=== PATIENT | female | born 1955 | race Caucasian/White ===

== ENCOUNTER 2019-10-27 11:54 | Inpatient (IN) | payer MEDICARE ==
[2019-10-27] MEDS ORDERED: MORPHINE SULFATE 4 MG/ML SYRINGE IVP STA (12:23)
--- NOTE | 2019-10-27 12:31 | ED ---
Fall HPI - General Source: EMS, RN notes reviewed, old records reviewed Mode of arrival: EMS <Ena Ortiz - Last Filed: 10/27/19 13:58> <Max Gutierrez - Last Filed: 10/27/19 14:04> - General Chief Complaint: Fall Stated Complaint: Fall Time Seen by Provider: 10/27/19 11:56 - History of Present Illness Initial Comments: Patient is a 64-year-old female presents emergency department today for evaluation for right hip pain after falling from her recliner chair on Thursday. Patient reports that she has history of a weak hips. She states that she stop with her left leg and he gave out and her falling on her right hip. She reports she was unable to bear weight since Thursday. She reports that her carried her up the stairs and laid her in her bed. Since Thursday she has not eaten anything but only drank she was able to urinate in a female urinal. Patient reports that she has not been able to move the hip without significant pain. They eventually called EMS and brought the Patient here. She is given 50 mg of fentanyl for pain relief. She reports that her hip is rotated at this time and is most comfortable position when rotated. Patient is a smoker. She denies any previous hip fractures. (Ean Ortiz) - Related Data Allergies Allergy/AdvReac Type Severity Reaction Status Date / Time Penicillins Allergy Rash/Hives Verified 10/27/19 12:35 Review of Systems ROS Other: All systems not noted in ROS Statement are negative. <Ena Ortiz - Last Filed: 10/27/19 13:58> ROS Other: All systems not noted in ROS Statement are negative. <Max Gutierrez - Last Filed: 10/27/19 14:04> ROS Statement: Those systems with pertinent positive or pertinent negative responses have been documented in the HPI. Past Medical History Past Medical History: Hypertension History of Any Multi-Drug Resistant Organisms: None Reported Past Surgical History: Hysterectomy Past Psychological History: Anxiety Smoking Status: Current every day smoker Past Alcohol Use History: Occasional Past Drug Use History: Marijuana <Ena Ortiz - Last Filed: 10/27/19 13:58> General Exam Limitations: no limitations General appearance: alert, in no apparent distress Head exam: Present: atraumatic, normocephalic, normal inspection Eye exam: Present: normal appearance, PERRL, EOMI. Absent: scleral icterus, conjunctival injection, periorbital swelling ENT exam: Present: normal exam, mucous membranes moist Neck exam: Present: normal inspection. Absent: tenderness, meningismus, lymphadenopathy Respiratory exam: Present: normal lung sounds bilaterally. Absent: respiratory distress, wheezes, rales, rhonchi, stridor Cardiovascular Exam: Present: regular rate, normal rhythm, normal heart sounds. Absent: systolic murmur, diastolic murmur, rubs, gallop, clicks GI/Abdominal exam: Present: soft, normal bowel sounds. Absent: distended, tenderness, guarding, rebound, rigid Extremities exam: Present: normal inspection, full ROM, normal capillary refill. Absent: tenderness, pedal edema, joint swelling, calf tenderness Right Hip exam: Present: normal inspection, tenderness, external rotation. Absent: full ROM, swelling, abrasion, laceration, ecchymosis, deformity, crepitus, dislocation Upper Leg exam: Present: normal inspection, full ROM Knee exam: Present: normal inspection, full ROM Lower Leg exam: Present: normal inspection Neurovascular tendon exam: Present: no vascular compromise Back exam: Present: normal inspection Neurological exam: Present: alert, oriented X3, CN II-XII intact Psychiatric exam: Present: normal affect, normal mood Skin exam: Present: warm, dry, intact, normal color. Absent: rash <Ena Ortiz - Last Filed: 10/27/19 13:58> - General Exam Comments Initial Comments: This is an alert and oriented 64-year-old female. No acute distress. (Ena Ortiz) Course Vital Signs 10/27/19 11:58 Temperature 98.5 F Pulse Rate 80 Respiratory 18 Rate Blood Pressure 176/105 O2 Sat by Pulse 94 L Oximetry Medical Decision Making - Lab Data Result diagrams: 10/27/19 12:49 10/27/19 12:49 - Radiology Data Radiology results: report reviewed <Ena Ortiz - Last Filed: 10/27/19 13:58> - Lab Data Result diagrams: 10/27/19 12:49 10/27/19 12:49 <Max Gutierrez - Last Filed: 10/27/19 14:04> - Medical Decision Making 64-year-old female presented to return today with right hip pain after a fall last Thursday from her recliner chair onto the right hip. Since that time she's been remaining in bed and her 's and feeding her fluids. She's been nonweightbearing. They decided to call EMS today for further evaluation. Sandra napier arrives with right leg externally rotated. No significant shortening noted. She has significant pain with palpation over the groin and hip. Patient was given IV pain medication x-rays completed and shows evidence of intertrochanteric fracture. Patient's case was discussed with Dr. Gutierrez. Discussed the case with Dr. Dewitt. Patient should be admitted this time with medical consult. She is a smoker. No other significant past medical history. (Ena Ortiz) Patient also evaluated by myself, Dr. Gutierrez. Patient resting comfortably in bed. Patient does have tenderness on exam of right hip. I do agree with PA findings. This includes diagnostic interpretation and treatment plan. Patient was reevaluated and reexamined. Distally the extremity is neurovascular intact. X-rays reviewed. Patient updated. Case was discussed in detail with GEOFF Anderson, who will admit coming for Dr. Toledo. (Max Gutierrez) - Lab Data Lab Results 10/27/19 10/27/19 10/27/19 Range/Units 12:49 12:49 12:49 WBC 8.7 (3.8-10.6) k/uL RBC 3.71 L (3.80-5.40) m/uL Hgb 14.9 (11.4-16.0) gm/dL Hct 43.4 (34.0-46.0) % MCV 116.9 H (80.0-100.0) fL MCH 40.2 H (25.0-35.0) pg MCHC 34.4 (31.0-37.0) g/dL RDW 14.5 (11.5-15.5) % Plt Count 197 (150-450) k/uL Neutrophils % (Manual) 74 % Band Neutrophils % 1 % Lymphocytes % (Manual) 17 % Monocytes % (Manual) 6 % Eosinophils % (Manual) 3 % Neutrophils # (Manual) 6.50 (1.3-7.7) k/uL Lymphocytes # (Manual) 1.48 (1.0-4.8) k/uL Monocytes # (Manual) 0.52 (0-1.0) k/uL Eosinophils # (Manual) 0.26 (0-0.7) k/uL Nucleated RBCs 0 (0-0) /100 WBC Manual Slide Review Performed Macrocytosis Marked A PT 10.8 (9.0-12.0) sec INR 1.0 (<1.2) APTT 22.7 (22.0-30.0) sec Sodium 134 L (137-145) mmol/L Potassium 3.7 (3.5-5.1) mmol/L Chloride 99 (98-107) mmol/L Carbon Dioxide 29 (22-30) mmol/L Anion Gap 6 mmol/L BUN 15 (7-17) mg/dL Creatinine 0.39 L (0.52-1.04) mg/dL Est GFR (CKD-EPI)AfAm >90 (>60 ml/min/1.73 sqM) Est GFR (CKD-EPI)NonAf >90 (>60 ml/min/1.73 sqM) Glucose 101 H (74-99) mg/dL Calcium 9.1 (8.4-10.2) mg/dL Total Bilirubin 1.4 H (0.2-1.3) mg/dL AST 30 (14-36) U/L ALT 15 (4-34) U/L Alkaline Phosphatase 67 (38-126) U/L Total Protein 6.0 L (6.3-8.2) g/dL Albumin 3.4 L (3.5-5.0) g/dL 10/27/19 12:50 EKG shows sinus rhythm with premature ventricular sugar ventricular complex is with occasional PVCs. Ventricular hypertrophy. 75 bpm ventricular rate. Is 128 ms. Estrogen is 92 ms. QT QTc is 416/464 ms. (Ena Ortiz) - Radiology Data X-ray shows evidence of a nondisplaced intertrochanteric right proximal fifth femoral fracture. Bone mineralization is reduced. Underlying a arthritic changes are present within the hip. Chest x-ray shows no evidence of any acute process. (Ena Ortiz) Disposition Is patient prescribed a controlled substance at d/c from ED?: No Time of Disposition: 14:00 <Ena Ortiz - Last Filed: 10/27/19 13:58> <Max Gutierrez - Last Filed: 10/27/19 14:04> Clinical Impression: Intertrochanteric fracture of right hip Disposition: ADMITTED IP TO THIS HOSP Condition: Good Referrals: Nonstaff,Physician [REFERRING] - 1-2 days
[2019-10-27 13:02] LABS: HCT 43.4 % (34.0-46.0); HGB 14.9 gm/dL (11.4-16.0); MCH 40.2 pg (25.0-35.0); MCHC 34.4 g/dL (31.0-37.0); MCV 116.9 fL (80.0-100.0); Macrocytosis Marked; Mean Platelet Volume 7.5; Platelet Count 197 k/uL (150-450); RBC 3.71 m/uL (3.80-5.40); RDW 14.5 % (11.5-15.5); WBC 8.7 k/uL (3.8-10.6)
[2019-10-27 13:08] LABS: ALT 15 U/L (4-34); African American GFR (CKD) >90 (>60 ml/min/1.73 sqM); Albumin 3.4 g/dL (3.5-5.0); Anion Gap 6 mmol/L; Blood Urea Nitrogen 15 mg/dL (7-17); Calcium 9.1 mg/dL (8.4-10.2); Carbon Dioxide 29 mmol/L (22-30); Chloride 99 mmol/L (98-107); Glucose 101 mg/dL (74-99); Non-African American GFR(CKD) >90 (>60 ml/min/1.73 sqM); Sodium 134 mmol/L (137-145); Total Bilirubin 1.4 mg/dL (0.2-1.3)
[2019-10-27 13:16] LABS: Potassium 3.7 mmol/L (3.5-5.1)
[2019-10-27 13:17] LABS: AST 30 U/L (14-36); Alkaline Phosphatase 67 U/L (38-126); Partial Thromboplastin Time 22.7 sec (22.0-30.0); Prothrombin Time 10.8 sec (9.0-12.0)
[2019-10-27 13:29] LABS: Band Neutrophils % 1 %; Eosinophils # (M) 0.26 k/uL (0-0.7); Lymphocytes # (M) 1.48 k/uL (1.0-4.8); Monocytes # (M) 0.52 k/uL (0-1.0); Neutrophils % (M) 74 %; Nucleated Red Blood Cells 0 /100 WBC (0-0); Total Cells Counted 200
--- NOTE | 2019-10-27 13:45 | XR ---
EXAMINATION TYPE: XR chest 1V DATE OF EXAM: 10/27/2019 COMPARISON: NONE HISTORY: Smoker, hip fracture TECHNIQUE: Single frontal view of the chest is obtained. FINDINGS: There is no focal air space opacity, pleural effusion, or pneumothorax seen. The cardiac silhouette size is within normal limits. There is eventration of the right hemidiaphragm. Patient is rotated. The osseous structures are intact. IMPRESSION: No acute process.
--- NOTE | 2019-10-27 13:48 | XR ---
EXAMINATION TYPE: XR Hip RT and AP Pelvis DATE OF EXAM: 10/27/2019 COMPARISON: NONE HISTORY: Trauma and pain TECHNIQUE: A single AP view of the pelvis is obtained. Two views of the right hip are obtained. FINDINGS: There is a nondisplaced intertrochanteric right proximal femoral fracture. Bone mineraliza tion is reduced. Underlying osteoarthritic changes are present within the hips. impression: Right hip fracture as described
[2019-10-27] MEDS ORDERED: SODIUM CHLORIDE 0.9% 1,000 ML IV ONE (13:51)
[2019-10-27] MEDS ORDERED: MORPHINE SULFATE 4 MG/ML SYRINGE IV PRN (14:01)
[2019-10-27] MEDS ORDERED: LORazepam 2 MG/ML INJ IV PRN (14:01)
[2019-10-27] MEDS ORDERED: ACETAMINOPHEN TAB 325 MG TAB PO PRN (14:01)
[2019-10-27] MEDS ORDERED: IBUPROFEN 400 MG TAB PO PRN (14:01)
[2019-10-27] MEDS ORDERED: NALOXONE 0.4 MG/ML 1 ML VIAL IV PRN (14:01)
[2019-10-27] MEDS ORDERED: ONDANSETRON 4 MG/2 ML VIAL IVP PRN (14:01)
[2019-10-27] MEDS ORDERED: KETOROLAC 30 MG/ML 1 ML VIAL IVP PRN (14:01)
[2019-10-27 14:29] LABS: Amorphous Sediment,Urine Rare /hpf; Appearance,Urine Turbid (Clear); Bilirubin,Urine 1+ (Negative); Blood,Urine Trace (Negative); Color,Urine Dark Brown; Glucose,Urine (UA) Negative (Negative); Ketones,Urine 2+ (Negative); Leukocyte Esterase,Urine Trace (Negative); Mucus,Urine Many /hpf; Nitrite,Urine Negative (Negative); PH, Urine 5.5 (5.0-8.0); Protein,Urine Trace (Negative); RBC,Urine 2 /hpf (0-5); Specific Gravity,Urine 1.026 (1.001-1.035); Squamous Epithelial Cell,Urine 6 /hpf (0-4); WBC,Urine 7 /hpf (0-5)
--- NOTE | 2019-10-27 15:22 | P.HPOR ---
History of Present Illness H&P Date: 10/27/19 Chief Complaint: Right hip fracture The patient is a 64-year-old female with a past medical history of hypertension, who presented to the emergency department today after sustaining a fall at home on 10/21/2019. She states she was standing up from her recliner chair with most of her weight on her left side but lost her balance and fell onto the right. She denies hitting her head or other injuries at this time. She states she has a history of bilateral hip arthritis but has not seen an orthopedic doctor yet. She does have weakness in her legs due to this hip arthritis. Her helped her into bed where she has remained since last Thursday. The pain was progressing and decided to come to the emergency department. X-rays were taken in the ER that revealed a nondisplaced right hip intertrochanteric fracture. Patient was admitted to orthopedics for surgical intervention. Internal medicine has been consulted. The patient's pain at this time is con trolled as long as she is laying in bed. Review of Systems Constitutional: Denies chills, Denies fatigue, Denies fever Cardiovascular: Denies chest pain, Denies shortness of breath Respiratory: Denies cough Gastrointestinal: Denies diarrhea, Denies nausea, Denies vomiting Musculoskeletal: right: hip pain, hip stiffness Past Medical History Past Medical History: Hypertension History of Any Multi-Drug Resistant Organisms: None Reported Past Surgical History: Hysterectomy Past Psychological History: Anxiety Smoking Status: Current every day smoker Past Alcohol Use History: Occasional Past Drug Use History: Marijuana Medications and Allergies Home Medications Medication Instructions Recorded Confirmed Type Acetaminophen [Tylenol 8 Hour] 1,300 mg PO DAILY PRN 10/27/19 10/27/19 History Allergies Allergy/AdvReac Type Severity Reaction Status Date / Time Penicillins Allergy Rash/Hives Verified 10/27/19 14:46 Physical Examination The patient is a 64 year old female that is no acute distress. She is alert and oriented x3. The patient's head is normocephalic and atraumatic. Exam of the cervical spine reveals no pain upon palpation or range of motion. Exam of the bilateral upper extremities reveal no obvious deformities or pain upon range of motion. Exam of the left lower extremity reveals no pain upon palpation. Exam of the right lower extremity reveals a externally rotated and shortened leg. Pain upon palpation to the lateral hip. There is pain upon logrolling and any range of motion of the leg. Bilateral calves are soft and nontender. Patient has good foot and ankle motion bilaterally. Neurological and circulatory status is intact. Results - Labs Labs: Abnormal Lab Results - Last 24 Hours (Table) 10/27/19 10/27/19 10/27/19 Range/Units 12:49 12:49 12:49 RBC 3.71 L (3.80-5.40) m/uL MCV 116.9 H (80.0-100.0) fL MCH 40.2 H (25.0-35.0) pg Macrocytosis Marked A Sodium 134 L (137-145) mmol/L Creatinine 0.39 L (0.52-1.04) mg/dL Glucose 101 H (74-99) mg/dL Total Bilirubin 1.4 H (0.2-1.3) mg/dL Creatine Kinase 28 L (30-135) U/L Total Protein 6.0 L (6.3-8.2) g/dL Albumin 3.4 L (3.5-5.0) g/dL Urine Appearance (Clear) Urine Protein (Negative) Urine Ketones (Negative) Urine Blood (Negative) Urine Bilirubin (Negative) Ur Leukocyte Esterase (Negative) Urine WBC (0-5) /hpf Ur Squamous Epith Cells (0-4) /hpf Amorphous Sediment (None) /hpf Urine Mucus (None) /hpf 10/27/19 Range/Units 13:56 RBC (3.80-5.40) m/uL MCV (80.0-100.0) fL MCH (25.0-35.0) pg Macrocytosis Sodium (137-145) mmol/L Creatinine (0.52-1.04) mg/dL Glucose (74-99) mg/dL Total Bilirubin (0.2-1.3) mg/dL Creatine Kinase (30-135) U/L Total Protein (6.3-8.2) g/dL Albumin (3.5-5.0) g/dL Urine Appearance Turbid H (Clear) Urine Protein Trace H (Negative) Urine Ketones 2+ H (Negative) Urine Blood Trace H (Negative) Urine Bilirubin 1+ H (Negative) Ur Leukocyte Esterase Trace H (Negative) Urine WBC 7 H (0-5) /hpf Ur Squamous Epith Cells 6 H (0-4) /hpf Amorphous Sediment Rare H (None) /hpf Urine Mucus Many H (None) /hpf H & H 10/27/19 Range/Units 12:49 Hgb 14.9 (11.4-16.0) gm/dL Hct 43.4 (34.0-46.0) % Coagulation 10/27/19 Range/Units 12:49 INR 1.0 (<1.2) Result Diagrams: 10/27/19 12:49 10/27/19 12:49 - Diagnostic results Hip x-ray: image reviewed (X-rays of the right hip and pelvis reveal a nondisplaced intertrochanteric fracture. Osteoarthritis present in both hips. ) Assessment and Plan (1) Hypertension Current Visit: Yes Status: Acute Code(s): I10 - ESSENTIAL (PRIMARY) HYPERTENSION SNOMED Code(s): 59634376 (2) Intertrochanteric fracture of right hip Current Visit: Yes Status: Acute Code(s): S72.141A - DISPLACED INTERTROCHANTERIC FRACTURE OF RIGHT FEMUR, INIT SNOMED Code(s): 228828522 Plan: The clinical and x-ray findings were discussed with the patient. The case was discussed with Dr. Adorno. Continue pain control. Continue bedrest. The july ent will be scheduled for an IT nail tomorrow afternoon. She may resume a regular diet at this time and will be NPO at midnight tonight. Internal medicine has been consulted for medical management and surgical clearance. Surgical risks were discussed at length with the patient. Possible risks and complications including but not limited to risk of bleeding, infection, dislocation, DVT, stroke, heart attack, and were discussed. All of the patient's questions were answered at this time to the best of my ability. We will continue to follow patient closely and make further recommendations as needed.
--- NOTE | 2019-10-27 16:08 | P.CONS ---
History of Present Illness - Reason for Consult Preoperative clearance - History of Present Illness Pleasant 62-year-old female came in after a fall which is without any syncope on the 10/21/2019. Patient is found to have a right hip fracture. Patient is sitting in bilateral hip arthritis. Blood pressure is a very high and patient does have EKG changes consistent with a chronic untreated hypertension including diffuse ST depressions, left ventricle hypertrophy and strain pattern. Patient is denied any history of coronary disease but does have history of sick smoking significant but cut down on smoking lately smokes only about 2-3 cigarettes per day. Denied any history of coronary artery disease or previous stents denied any history of congestive heart failure denied any shortness of breath orthopnea paroxysmal nocturnal dyspnea. Patient had occasional palpitations. Patient functionality is fairly good Review of Systems REVIEW OF SYSTEMS: CONSTITUTIONAL: No fever, no malaise, no fatigue. HEENT: No recent visual problems or hearing problems. Denied any sore throat. CARDIOVASCULAR: No chest pain, orthopnea, PND, no palpitations, no syncope. PULMONARY: No shortness of breath, no cough, no hemoptysis. GASTROINTESTINAL: No diarrhea, no nausea, no vomiting, no abdominal pain. NEUROLOGICAL: No headaches, no weakness, no numbness. HEMATOLOGICAL: Denies any bleeding or petechiae. GENITOURINARY: Denies any burning micturition, frequency, or urgency. MUSCULOSKELETAL/RHEUMATOLOGICAL: Right hip pain ENDOCRINE: Denies any polyuria or polydipsia. The rest of the 14-point review of systems is negative. Past Medical History Past Medical History: Hypertension History of Any Multi-Drug Resistant Organisms: None Reported Past Surgical History: Hysterectomy Past Psychological History: Anxiety Smoking Status: Current every day smoker Past Alcohol Use History: Occasional Past Drug Use History: Marijuana - Past Family History Father Family Medical History: Congestive Heart Failure (CHF), Dementia, Osteoarthritis (OA) Mother Additional Family Medical History / Comment(s): Breast CA, skin CA Medications and Allergies Home Medications Medication Instructions Recorded Confirmed Type Acetaminophen [Tylenol 8 Hour] 1,300 mg PO DAILY PRN 10/27/19 10/27/19 History Allergies Allergy/AdvReac Type Severity Reaction Status Date / Time Penicillins Allergy Rash/Hives Verified 10/27/19 14:46 Physical Exam Vitals: Vital Signs Temp Pulse Pulse Resp BP BP Pulse Ox 07/16/20 15:30 99.1 F 72 18 180/92 99 10/27/19 15:00 72 12 180/88 98 10/27/19 14:06 71 18 194/92 98 10/27/19 14:00 66 14 178/96 99 10/27/19 13:00 72 15 160/93 99 10/27/19 11:58 98.5 F 80 18 176/105 94 L Intake and Output 10/27/19 10/27/19 10/27/19 06:59 14:59 22:59 Other: Weight 54.431 kg 54.431 kg PHYSICAL EXAMINATION: GENERAL: The patient is alert and oriented x3, not in any acute distress. Well developed, well nourished. HEENT: Pupils are round and equally reacting to light. EOMI. No scleral icterus. No conjunctival pallor. Normocephalic, atraumatic. No pharyngeal erythema. No thyromegaly. CARDIOVASCULAR: S1 and S2 present. No murmurs, rubs, or gallops. PULMONARY: Chest is clear to auscultation, no wheezing or crackles. ABDOMEN: Soft, nontender, nondistended, normoactive bowel sounds. No palpable organomegaly. MUSCULOSKELETAL: Deferred to orthopedic surgery EXTREMITIES: No cyanosis, clubbing, or pedal edema. NEUROLOGICAL: Gross neurological examination did not reveal any focal deficits. SKIN: No rashes. Results CBC & Chem 7: 10/27/19 12:49 10/27/19 12:49 Labs: Abnormal Lab Results - Last 24 Hours (Table) 10/27/19 10/27/19 10/27/19 Range/Units 12:49 12:49 12:49 RBC 3.71 L (3.80-5.40) m/uL MCV 116.9 H (80.0-100.0) fL MCH 40.2 H (25.0-35.0) pg Macrocytosis Marked A Sodium 134 L (137-145) mmol/L Creatinine 0.39 L (0.52-1.04) mg/dL Glucose 101 H (74-99) mg/dL Total Bilirubin 1.4 H (0.2-1.3) mg/dL Creatine Kinase 28 L (30-135) U/L Total Protein 6.0 L (6.3-8.2) g/dL Albumin 3.4 L (3.5-5.0) g/dL Urine Appearance (Clear) Urine Protein (Negative) Urine Ketones (Negative) Urine Blood (Negative) Urine Bilirubin (Negative) Ur Leukocyte Esterase (Negative) Urine WBC (0-5) /hpf Ur Squamous Epith Cells (0-4) /hpf Amorphous Sediment (None) /hpf Urine Mucus (None) /hpf 10/27/19 Range/Units 13:56 RBC (3.80-5.40) m/uL MCV (80.0-100.0) fL MCH (25.0-35.0) pg Macrocytosis Sodium (137-145) mmol/L Creatinine (0.52-1.04) mg/dL Glucose (74-99) mg/dL Total Bilirubin (0.2-1.3) mg/dL Creatine Kinase (30-135) U/L Total Protein (6.3-8.2) g/dL Albumin (3.5-5.0) g/dL Urine Appearance Turbid H (Clear) Urine Protein Trace H (Negative) Urine Ketones 2+ H (Negative) Urine Blood Trace H (Negative) Urine Bilirubin 1+ H (Negative) Ur Leukocyte Esterase Trace H (Negative) Urine WBC 7 H (0-5) /hpf Ur Squamous Epith Cells 6 H (0-4) /hpf Amorphous Sediment Rare H (None) /hpf Urine Mucus Many H (None) /hpf Assessment and Plan Plan: -Preoperative clearance: Patient is low to intermediate risk, considering that EKG changes which is most certainly secondary to hypertensive heart disease will obtain an echocardiogram. Counseling that patient is hypotensive for longtime in spite of her blood pressure being high at 180 systolic. I do not recommend any antihypertensive medications before surgery or as that had blood pressure is expected to go down. Audiology was consulted for cardiac clearance for surgery -Possible hypovolemic hyponatremia -Possible essential hypertension uncontrolled elevated was never treated for elevated blood pressure. -History of marijuana use and nicotine abuse: Counseling was provided
[2019-10-27] MEDS: SODIUM CHLORIDE 0.9% 1,000 ML IV SCH (19:08)
--- NOTE | 2019-10-28 09:35 | ECHOF ---
Referral Reason:surgical clearence MEASUREMENTS -------- HEIGHT: 154.9 cm WEIGHT: 54.4 kg BP: 180/92 RVIDd: 2.9 cm (< 3.3) IVSd: 1.3 cm (0.6 - 1.1) LVIDd: 4.5 cm (3.9 - 5.3) LVPWd: 1.2 cm (0.6 - 1.1) IVSs: 1.6 cm LVIDs: 3.0 cm LVPWs: 1.7 cm LA Diam: 2.9 cm (2.7 - 3.8) LAESV Index (A-L): 31.58 ml/m Ao Diam: 3.3 cm (2.0 - 3.7) AV Cusp: 2.2 cm (1.5 - 2.6) MV EXCURSION: 10.738 mm (> 18.000) MV EF SLOPE: 32 mm/s (70 - 150) EPSS: 0.4 cm MV E Sujit: 0.72 m/s MV DecT: 289 ms MV A Sujit: 1.06 m/s MV E/A Ratio: 0.68 AV maxP.90 mmHg AV meanP.66 mmHg RAP: 5.00 mmHg RVSP: 39.79 mmHg FINDINGS -------- Sinus rhythm. This was a technically adequate study. The left ventricular size is normal. There is mild concentric left ventricular hypertrophy. Overa ll left ventricular systolic function is normal with, an EF between 55 - 60 %. The diastolic fillin g pattern is normal for the age of the patient 11.39. The right ventricle is normal in size. Normal LA size by volume 22+/-6 ml/m2. The right atrial size is normal. Interatrial and interventricular septum intact. The aortic valve is trileaflet, and appears structurally normal. No aortic stenosis or regurgitation. LVOT obstruction with max pressure gradient of 53 mmHg and mean 26 mmHg [id number] mitral regurgitation is present. Redundant MV Mild tricuspid regurgitation present. There is mild pulmonary hypertension. The right ventricular systolic pressure, as measured by Doppler, is 39.79mmHg. Trace/mild (physiologic) pulmonic regurgitation. The aortic root size is normal. Normal inferior vena cava with normal inspiratory collapse consistent with estimated right atrial pre ssure of 5 mmHg. Echo free space may represent effusion or a pericardial fat pad. CONCLUSIONS -------- 1. There is mild concentric left ventricular hypertrophy. 2. Overall left ventricular systolic function is normal with, an EF between 55 - 60 %. 3. Normal LA size by volume 22+/-6 ml/m2. 4. The aortic valve is trileaflet, and appears structurally normal. No aortic stenosis or regurgitati on. 5. LVOT obstruction with max pressure gradient of 53 mmHg and mean 26 mmHg 6. [id number] mitral regurgitation is present. 7. Redundant MV 8. Mild tricuspid regurgitation present. 9. There is mild pulmonary hypertension. 10. Trace/mild (physiologic) pulmonic regurgitation. 11. Echo free space may represent effusion or a pericardial fat pad. LENS GRINDING MACHINE OPERATOR: Brynn Blair RDCS
--- NOTE | 2019-10-28 09:37 | P.CRDCN ---
History of Present Illness History of present illness: HISTORY OF PRESENTING ILLNESS This is a pleasant 64-year-old female past medical history significant for hypertension, chronic nicotine dependence, daily alcohol and marijuana inta ke and noncompliance. 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 We have been asked to see in consultation for pre-operative evaluation. She states approximately one week ago while at home she lost her footing and fell. She was climbing up out of a lawnchair. She landed on her right hip. Her was able to carry her upstairs. This is where she remained for approximately one w [place] because he was unable to assist her downstairs. EMS was finally called and assisted her to the emergency department. Diagnostic imaging revealed a right hip fracture. She is scheduled to undergo a HANK nailing with Dr. Dozier this afternoon. She is seen and examined resting comfortably laying flat in bed in no acute distress. She denies having symptoms of chest pain, shortness of breath, dizziness or palpitations. She states she has been diagnosed with hypertension in the past and was advised "watch". She is not currently on any antihypertensive regimen. She does not regularly follow with a primary care physician. DIAGNOSTICS EKG reveals sinus mechanism with PVC's, LVH and non-specific ST changes. Chest xray negative for an acute cardiopulmonary process. Laboratory reviewed, WBC 8.7, hemoglobin 14.9, platelets 197, sodium 134, potassium 3.7, creatinine 0.39 with a GFR greater than 90.. She takes no daily cardiac medications. REVIEW OF SYSTEMS At the time of my exam: CONSTITUTIONAL: Denies fever or chills. CARDIOVASCULAR: Denies chest pain, shortness of breath, orthopnea, PND or palpitations. RESPIRATORY: Denies cough. GASTROINTESTINAL: Denies abdominal pain, diarrhea, constipation, nausea or vomiting. MUSCULOSKELETAL: Denies myalgias. NEUROLOGIC: Denies numbness, tingling or weakness. ENDOCRINE: Denies fatigue, weight change, polydipsia or polyurina. GENITOURINARY: Denies burning, hematuria or urgency with micturation. HEMATOLOGIC: Denies history of anemia or bleeding. PHYSICAL EXAMINATION Blood pressure 159/84 heart rate 69 afebrile and maintaining oxygen saturation on room air. CONSTITUTIONAL: No apparent distress. Appears older than stated age. HEENT: Head is normocephalic. Pupils are equal, round. Sclerae anicteric. Mucous membranes of the mouth are moist. No JVD. No carotid bruit. CHEST EXAMINATION: Diffuse expiratory wheezes, no rales or rhonchi. No chest wall tenderness is noted on palpation or with deep breathing. HEART EXAMINATION: Regular rate and rhythm. S1, S2 heard. No murmurs, gallops or rub. ABDOMEN: Soft, nontender. Positive bowel sounds. EXTREMITIES: 2+ peripheral pulses, no lower extremity edema and no calf tenderness. NEUROLOGIC EXAMINATION: Patient is awake, alert and oriented x3. ASSESSMENT Fall, no loss of consciousness or syncope Right hip fracture Hypertension, untreated Chronic nicotine dependence Daily alcohol intake Marijuana use PLAN Initiate lisinopril 5 mg daily for hypertension management. Echocardiogram has been ordered and will be reviewed. Check lipid panel. There are no acute contraindications to undergo surgical intervention. The patient has no symptoms of angina and is clinically euvolemic. Given her risk factor profile she has increased risks to undergo surgical intervention. Recommend optimal blood pressure control intraoperatively. Smoking, alcohol and tobacco cessation recommended. May require alcohol withdrawal protocol. Thank you kindly for this consultation. Nurse Practitioner note has been reviewed, I agree with a documented findings and plan of care. Patient was seen and examined. Past Medical History Past Medical History: Hypertension History of Any Multi-Drug Resistant Organisms: None Reported Past Surgical History: Hysterectomy Past Psychological History: Anxiety Smoking Status: Current every day smoker Past Alcohol Use History: Occasional Past Drug Use History: Marijuana - Past Family History Father Family Medical History: Congestive Heart Failure (CHF), Dementia, Osteoarthritis (OA) Mother Additional Family Medical History / Comment(s): Breast CA, skin CA Medications and Allergies Home Medications Medication Instructions Recorded Confirmed Type Acetaminophen [Tylenol 8 Hour] 1,300 mg PO DAILY PRN 10/27/19 10/27/19 History Allergies Allergy/AdvReac Type Severity Reaction Status Date / Time Penicillins Allergy Rash/Hives Verified 10/27/19 14:46 Physical Exam Vitals: Vital Signs Temp Pulse Pulse Resp BP BP Pulse Ox 10/28/19 08:00 69 16 10/28/19 07:00 98.3 F 69 16 159/84 93 L 10/28/19 01:00 98.5 F 79 18 157/93 94 L 10/27/19 18:50 98.6 F 75 18 188/78 95 07/16/20 16:00 72 18 10/27/19 15:30 99.1 F 72 18 180/92 99 10/27/19 15:00 72 12 180/88 98 10/27/19 14:06 71 18 194/92 98 10/27/19 14:00 66 14 178/96 99 10/27/19 13:00 72 15 160/93 99 10/27/19 11:58 98.5 F 80 18 176/105 94 L Intake and Output 10/27/19 10/28/19 10/28/19 22:59 06:59 14:59 Output Total 200 350 Balance -200 -350 Output: Urine 200 350 Other: Voiding Method Indwelling Catheter Indwelling Catheter Indwelling Catheter Weight 54.431 kg Results 10/27/19 12:49 10/27/19 12:49 Cardiac Enzymes 10/27/19 Range/Units 12:49 AST 30 (14-36) U/L Coagulation 10/27/19 Range/Units 12:49 PT 10.8 (9.0-12.0) sec APTT 22.7 (22.0-30.0) sec CBC 10/27/19 Range/Units 12:49 WBC 8.7 (3.8-10.6) k/uL RBC 3.71 L (3.80-5.40) m/uL Hgb 14.9 (11.4-16.0) gm/dL Hct 43.4 (34.0-46.0) % Plt Count 197 (150-450) k/uL Comprehensive Metabolic Panel 10/27/19 Range/Units 12:49 Sodium 134 L (137-145) mmol/L Potassium 3.7 (3.5-5.1) mmol/L Chloride 99 (98-107) mmol/L Carbon Dioxide 29 (22-30) mmol/L BUN 15 (7-17) mg/dL Creatinine 0.39 L (0.52-1.04) mg/dL Glucose 101 H (74-99) mg/dL Calcium 9.1 (8.4-10.2) mg/dL AST 30 (14-36) U/L ALT 15 (4-34) U/L Alkaline Phosphatase 67 (38-126) U/L Total Protein 6.0 L (6.3-8.2) g/dL Albumin 3.4 L (3.5-5.0) g/dL Current Medications Generic Name Dose Route Start Last Admin Trade Name Freq PRN Reason Stop Dose Admin Acetaminophen 650 mg 10/27/19 14:01 Tylenol Tab PO Q6HR PRN Mild Pain or Fever > 100.5 Sodium Chloride 1,000 mls @ 75 mls/hr 10/27/19 17:00 10/27/19 19:08 Saline 0.9% IV Not Given .[id number] ABBEY Ibuprofen 400 mg 10/27/19 14:01 Motrin PO Q6HR PRN Mild Pain or Fever > 100.5 Ketorolac Tromethamine 30 mg 10/27/19 14:01 Toradol IVP 11/01/19 14:02 Q6HR PRN Moderate Pain Lisinopril 5 mg 10/28/19 09:15 Zestril PO DAILY ABBEY Lorazepam 0.5 mg 10/27/19 14:01 10/27/19 20:59 Ativan IV 0.5 mg Q6HR PRN Administration Anxiety Morphine Sulfate 4 mg 10/27/19 14:01 10/27/19 14:10 Morphine Sulfate (Inj) IV 4 mg Q4HR PRN Administration Severe Pain Naloxone HCl 0.2 mg 10/27/19 14:01 Narcan IV Q2M PRN Opioid Reversal Ondansetron HCl 4 mg 10/27/19 14:01 Zofran IVP Q8HR PRN Nausea And Vomiting Intake and Output 10/27/19 10/28/19 10/28/19 22:59 06:59 14:59 Output Total 200 350 Balance -200 -350 Output: Urine 200 350 Other: Voiding Method Indwelling Catheter Indwelling Catheter Indwelling Catheter Weight 54.431 kg 10/27/19 12:49 10/27/19 12:49
[2019-10-28] MEDS: lisinopriL 5 MG TAB PO SCH (09:50)
[2019-10-28 10:36] LABS: Cholesterol 166 mg/dL (<200); HDL Cholesterol 33 mg/dL (40-60); LDL Cholesterol,Calculated 103 mg/dL (0-99); Triglycerides 152 mg/dL (<150)
[2019-10-28] MEDS ORDERED: IV FLUID CONTINUATION 1,000 ML IV ONE ×3 (12:20)
[2019-10-28] MEDS: IV FLUID CONTINUATION 1,000 ML IV ONE ×2 (12:20→19:12)
--- NOTE | 2019-10-28 13:22 | P.PN ---
Subjective 64-year-old admitted after mechanical fall had a right hip fracture will undergo hip arthroplasty today. Patient was a valid by cardiology. Patient is low to intermediate operative risk for arthroplasty same thing was discussed with the patient and patient is agreeable for the surgery. Patient echocardiogram did show left particular hypertrophy and left ventricle outflow obstruction. Constitutional: Denied any fatigue denied any fever. Cardio vascular: denied any chest pain, palpitations Gastrointestinal denied any nausea vomiting Pulmonary: Denied any shortness of breath cough Neurologic denied any new focal deficits All inpatient medications were reviewed and appropriate changes in these medications as dictated in the interval history and assessment and plan. Objective - Vital Signs Vital signs: Vital Signs Temp 97.7 F 10/28/19 12:33 Pulse 95 10/28/19 12:33 Resp 16 10/28/19 12:33 BP 160/87 10/28/19 12:33 Pulse Ox 98 10/28/19 12:33 Intake & Output 10/27/19 10/28/19 10/28/19 18:59 06:59 18:59 Output Total 550 Balance -550 Weight 54.431 kg Output: Urine 550 Other: Voiding Method Indwelling Catheter Indwelling Catheter Indwelling Catheter - Exam PHYSICAL EXAMINATION: GENERAL: The patient is alert and oriented x3, not in any acute distress. Well developed, well nourished. HEENT: Pupils are round and equally reacting to light. EOMI. No scleral icterus. No conjunctival pallor. Normocephalic, atraumatic. No pharyngeal erythema. No thyromegaly. CARDIOVASCULAR: S1 and S2 present. No murmurs, rubs, or gallops. PULMONARY: Chest is clear to auscultation, no wheezing or crackles. ABDOMEN: Soft, nontender, nondistended, normoactive bowel sounds. No palpable organomegaly. MUSCULOSKELETAL: Deferred to orthopedic surgery EXTREMITIES: No cyanosis, clubbing, or pedal edema. NEUROLOGICAL: Gross neurological examination did not reveal any focal deficits. SKIN: No rashes. - Labs CBC & Chem 7: 10/27/19 12:49 10/27/19 12:49 Labs: Abnormal Lab Results - Last 24 Hours (Table) 10/27/19 10/27/19 10/28/19 Range/Units 12:49 13:56 09:35 Creatine Kinase 28 L (30-135) U/L Triglycerides 152 H (<150) mg/dL LDL Cholesterol, Calc 103 H (0-99) mg/dL HDL Cholesterol 33 L (40-60) mg/dL Urine Appearance Turbid H (Clear) Urine Protein Trace H (Negative) Urine Ketones 2+ H (Negative) Urine Blood Trace H (Negative) Urine Bilirubin 1+ H (Negative) Ur Leukocyte Esterase Trace H (Negative) Urine WBC 7 H (0-5) /hpf Ur Squamous Epith Cells 6 H (0-4) /hpf Amorphous Sediment Rare H (None) /hpf Urine Mucus Many H (None) /hpf Assessment and Plan Plan: -Preoperative clearance: Patient is low to intermediate risk, echo cardio was reviewed and cardiology evaluated the patient patient was started on low-dose of ODILON inhibitor on hold that medication tomorrow morning and if blood pressure is higher post surgery patient will be started back on this medication -Possible hypovolemic hyponatremia continue with IV fluids -Alcohol abuse: Counseling was provided - essential hypertension uncontrolled elevated was never treated for elevated blood pressure. -History of marijuana use and nicotine abuse: Counseling was provided
[2019-10-28] MEDS ORDERED: PROPOFOL 10 MG/ML 20 ML VIAL IV ONE (13:44)
[2019-10-28] MEDS ORDERED: fentaNYL (PF) 50 MCG/ML 2 ML AMP ONE (13:44)
[2019-10-28] MEDS ORDERED: KETAMINE 10 MG/ML 20 ML VIAL ONE (13:44)
[2019-10-28] MEDS ORDERED: MIDAZOLAM 2 MG/2 ML VIAL ONE (13:44)
[2019-10-28] MEDS ORDERED: LACTATED RINGERS 1,000 ML IV ONE (14:33)
--- NOTE | 2019-10-28 14:58 | P.OP ---
Date of Procedure: 10/28/19 Procedure(s) Performed: PREOPERATIVE DIAGNOSIS: Right hip intertrochanteric fracture. POSTOPERATIVE DIAGNOSIS: Right hip intertrochanteric fracture. OPERATION: Right hip intertrochanteric fracture closed reduction and intramedullary nailing using Synthes IT nail. LIBRARY MEDIA SPECIALIST: Kayy Mack PA-C (Assistance with: Patient positioning, retraction, exposure, hemostasis, fixation, irrigation, closure, dressing) ANESTHESIA: Spinal ESTIMATED BLOOD LOSS: 50 mL. COMPLICATIONS: None OPERATIVE FINDINGS: See dictation INDICATIONS: Mrs. Alvarez is a 64-year-old female with a history of right intertrochanteric fracture. The patient presents to the operating room today for closed reduction and intramedullary nailing. I discussed the risks of surgery in detail as being inclusive of but not limited to: Bleeding, infection, scarring, discomfort, blood vessel and/or nerve damage, need for further minor rgery, malunion, nonunion, gait disturbance including persistent or permanent limp, limb length inequality, arthritis, hardware failure, blood clot, pulmonary embolism, , and other risks. The consent form has been signed. PROCEDURE: After appropriate consent was obtained, the patient was taken to the operating room and placed in supine position. Spinal anesthetic was administered and after confirmation of adequate anesthesia, the patient was carefully placed in the supine position on the operating room table in the fracture table. The patient was placed up against a well-padded peroneal post. Care was taken to make sure about that all pressure points were adequately padded. The affected leg was placed in boot traction and the unaffected leg was placed in a well leg capps. Using gentle longitudinal distraction as well as adduction and internal rotation, the fracture was reduced as assessed by AP and lateral C-arm imaging. Once a satisfactory reduction had been obtained, the thigh was prepped and draped in the usual aseptic fashion using ChloraPrep. Ioban drape was used for the case and the patient received intravenous antibiotics prior to incision. Timeout was called, confirming patient identity, side, procedure, and administration of antibiotics. The incision was then created with a #10 blade just proximal to the greater trochanter laterally. It was carried down through skin into the subcutaneous tissues and through fascia. Hemostasis was obtained using electrocautery. The tip of the greater trochanter was palpated and a guide pin was placed at the tip and directed into the femoral shaft as assessed with C-arm imaging. Once optimal pin position had been obtained, a 17 mm reamer was used over the guide pin to create a path for the IT nail. IT nail selected was assembled to the insertion jig on the back table and bushings were checked for accuracy. The nail was then inserted using gentle mallet taps until it was fully deployed. The amount of rotation of the implant was assessed based on the amount of anteversion of the femoral neck. This was rotated to match the patient's femoral neck anteversion and the helical blade guide was placed through the insertion jig and through an incision on the lateral side of the thigh more distal than the first. Once this guide was placed against the lateral cortex of the femur, a guide pin was drilled into the central region of the femoral head and neck as based on AP and lateral C-arm imaging. Once optimal pin position had been obtained, the guidewire was measured and appropriately sized helical blade was selected. The path for the helical blade was prepared using a tapered reamer. The helical blade was then inserted using gentle mallet taps along the guidewire until it was fully deployed. There was no displacement of the fracture during this step. The anti-rotation screw was locked down and the insertion apparatus for the helical blade was removed. The guide pin was then removed. Traction was then removed from the leg and the distal interlock was placed through the jig using standard technique. Finally, the insertion jig for the nail was removed and final C-arm images were taken and saved in both AP and lateral planes. The final x-rays showed satisfactory positioning of the implant and good reduction of the fracture. The top of the nail was plugged with a small quantity of bone wax and the incisions were then thoroughly irrigated with normal saline. Final hemostasis was obtained using electrocautery and closure of the fascia was performed using 0-Vicryl suture. 2-0 Vicryl suture was used in the subcutaneous tissues and standard skin closure was performed. Sterile dressing was then applied and the patient was carefully removed from the fracture table frame and placed onto the stretcher. The patient tolerated the procedure well. There were no complications and above noted blood loss. The patient was then subsequently transferred to recovery room in stable condition. Sponge and needle counts were correct.
--- NOTE | 2019-10-28 15:09 | FL ---
Fluoroscopy INDICATION: Pain FINDINGS: Fluoroscopy time: 49 seconds. Images obtained: 2. IMPRESSIONS: 1. Documentation of fluoroscopy.
[2019-10-28] MEDS ORDERED: MAGNESIUM HYDROXIDE 2,400 MG/10 ML CUP PO PRN (15:20)
[2019-10-28] MEDS ORDERED: HYDROmorphone 0.5 MG/0.5 ML SYRINGE IVP PRN ×2 (15:20)
[2019-10-28] MEDS ORDERED: NALOXONE 0.4 MG/ML 1 ML VIAL IV PRN (15:20)
[2019-10-28] MEDS ORDERED: HYDROcodone/APAP 5-325MG 1 EACH TAB PO PRN (15:20)
[2019-10-28] MEDS ORDERED: TEMAZEPAM 15 MG CAP PO PRN (15:20)
[2019-10-28] MEDS: HYDROmorphone 0.5 MG/0.5 ML SYRINGE IVP PRN ×3 (15:53→22:28)
[2019-10-28] MEDS ORDERED: HYDROmorphone 0.5 MG/0.5 ML SYRINGE IVP ONE (16:03)
[2019-10-28 17:40] LABS: Basophils % (A) 0 %; Eosinophils # (A) 0.1 k/uL (0-0.7); Eosinophils % (A) 2 %; HCT 39.6 % (34.0-46.0); HGB 13.3 gm/dL (11.4-16.0); Lymphocytes # (A) 1.2 k/uL (1.0-4.8); Lymphocytes % (A) 13 %; MCH 39.3 pg (25.0-35.0); MCHC 33.6 g/dL (31.0-37.0); MCV 117.1 fL (80.0-100.0); Macrocytosis Marked; Mean Platelet Volume 7.2; Monocytes # (A) 0.5 k/uL (0-1.0); Monocytes % (A) 6 %; Neutrophils # (A) 7.3 k/uL (1.3-7.7); Neutrophils % (A) 78 %; Platelet Count 203 k/uL (150-450); RBC 3.38 m/uL (3.80-5.40); WBC 9.4 k/uL (3.8-10.6)
[2019-10-28] MEDS: SODIUM CHLORIDE 0.9% 1,000 ML IV SCH ×2 (19:12→22:28)
[2019-10-28] MEDS: SENNOSIDES-DOCUSATE SODIUM 1 EACH TAB PO SCH (22:29)
[2019-10-28] MEDS: ASPIRIN 81 MG PO SCH (22:29)
[2019-10-29] MEDS: HYDROmorphone 0.5 MG/0.5 ML SYRINGE IVP PRN ×5 (02:34→20:32)
[2019-10-29] MEDS: lisinopriL 5 MG TAB PO SCH (07:48)
[2019-10-29] MEDS: ASPIRIN 81 MG PO SCH ×2 (07:54→20:32)
[2019-10-29] MEDS: SODIUM CHLORIDE 0.9% 1,000 ML IV SCH ×2 (08:57→23:09)
[2019-10-29 09:29] LABS: HCT 35.8 % (34.0-46.0); HGB 12.1 gm/dL (11.4-16.0); MCH 39.3 pg (25.0-35.0); MCHC 33.8 g/dL (31.0-37.0); MCV 116.2 fL (80.0-100.0); Macrocytosis Marked; Mean Platelet Volume 7.3; Platelet Count 174 k/uL (150-450); RBC 3.08 m/uL (3.80-5.40); WBC 9.7 k/uL (3.8-10.6)
[2019-10-29 09:38] LABS: African American GFR (CKD) >90 (>60 ml/min/1.73 sqM); Anion Gap 10 mmol/L; Blood Urea Nitrogen 7 mg/dL (7-17); Calcium 8.4 mg/dL (8.4-10.2); Carbon Dioxide 19 mmol/L (22-30); Chloride 102 mmol/L (98-107); Glucose 85 mg/dL (74-99); Non-African American GFR(CKD) >90 (>60 ml/min/1.73 sqM); Potassium 3.3 mmol/L (3.5-5.1); Sodium 131 mmol/L (137-145)
--- NOTE | 2019-10-29 09:49 | P.PN ---
Subjective Progress Note Date: 10/29/19 Principal diagnosis: Intertrochanteric right hip fracture. The patient is a 64-year-old female with a past medical history of hypertension, who presented to the emergency department on 10/27/2019 after sustaining a fall at home on 10/21/2019. She states she was standing up from her recliner chair with most of her weight on her left side but lost her balance and fell on to the right. She denies hitting her head or other injuries at this time. She states she has a history of bilateral hip arthritis but has not seen an orthopedic doctor yet. She does have weakness in her legs due to this hip arthritis. Her helped her into bed where she has remained since last Thursday. The pain was progressing and decided to come to the emergency department. X-rays were taken in the ER that revealed a nondisplaced right hip intertrochanteric fracture. Patient was admitted to orthopedics for surgical intervention. Internal medicine has been consulted. 10/29/2019: The patient is postoperative day #1 status post close reduction with insertion of intertrochanteric nail of the right hip. She has no new complaints or concerns today. Vital signs are stable. Objective - Vital Signs Vital signs: Vital Signs Temp 98.5 F 10/29/19 07:00 Pulse 80 10/29/19 07:00 Resp 16 10/29/19 07:00 BP 189/84 10/29/19 07:00 Pulse Ox 99 10/29/19 07:00 Intake & Output 10/28/19 10/29/19 10/29/19 18:59 06:59 18:59 Intake Total 1500 Output Total 450 850 Balance 1050 -850 Intake: IV 1500 Output: Urine 400 850 Estimated Blood Loss 50 Other: Voiding Method Indwelling Catheter Indwelling Catheter Indwelling Catheter # Voids 2 1 - Exam This is a pleasant 64-year-old female in no acute distress. She is alert and oriented at this time. Exam of the right lower extremity reveals that her dressing is clean, dry and intact. She has full foot and ankle motion without difficulty or pain. Neurovascular status to the lower extremity is intact. - Labs CBC & Chem 7: 10/29/19 08:53 10/29/19 08:53 Labs: Abnormal Lab Results - Last 24 Hours (Table) 10/28/19 10/28/19 10/29/19 Range/Units 09:35 17:14 08:53 RBC 3.38 L 3.08 L (3.80-5.40) m/uL MCV 117.1 H 116.2 H (80.0-100.0) fL MCH 39.3 H 39.3 H (25.0-35.0) pg Macrocytosis Marked A Marked A Sodium (137-145) mmol/L Potassium (3.5-5.1) mmol/L Carbon Dioxide (22-30) mmol/L Creatinine (0.52-1.04) mg/dL Triglycerides 152 H (<150) mg/dL LDL Cholesterol, Calc 103 H (0-99) mg/dL HDL Cholesterol 33 L (40-60) mg/dL 10/29/19 Range/Units 08:53 RBC (3.80-5.40) m/uL MCV (80.0-100.0) fL MCH (25.0-35.0) pg Macrocytosis Sodium 131 L (137-145) mmol/L Potassium 3.3 L (3.5-5.1) mmol/L Carbon Dioxide 19 L (22-30) mmol/L Creatinine 0.36 L (0.52-1.04) mg/dL Triglycerides (<150) mg/dL LDL Cholesterol, Calc (0-99) mg/dL HDL Cholesterol (40-60) mg/dL Assessment and Plan (1) Intertrochanteric fracture of right hip Current Visit: Yes Status: Acute Code(s): S72.141A - DISPLACED INTERTROCHANTERIC FRACTURE OF RIGHT FEMUR, INIT SNOMED Code(s): 255320346 Plan: The clinical findings are discussed with the patient. She is encouraged to get up with physical therapy today. She is toe-touch weightbearing to the right lower extremity. The plan is for discharge to home versus rehab on Thursday.
[2019-10-29] MEDS: PANTOPRAZOLE 40 MG/10 ML VIAL IVP SCH (11:16)
--- NOTE | 2019-10-29 14:37 | P.PN ---
Subjective Progress Note Date: 10/29/19 Principal diagnosis: Hypertension/Fall PROGRESS NOTE 10/29/2019 64-year-old female past medical history significant for hypertension, chronic nicotine dependence, daily alcohol and marijuana intake and noncompliance. S/P POD #1 for RIGHT total hip after fall. Pt does not follow with cardiology on a regular bases. patient is seen lying in bed with no current complaints of chest pain, chest pressure, shortness breath or palpitations. Patient right hip dressing clean dry and intact. Patient does have associated right hip pain after surgery. Patient states she smokes 2-3 cigarettes per day. And has not drank alcohol in approximately 2 weeks. Patient states she also has history of taking Xanax for known panic attacks. No acute distress currently. echocardiogram 10/27/2019 = EF 55-60%, LVOT obstruction with max pressure gradient of 53mmhg. mild to moderate MR. Mild pulmonary hypertension. PHYSICAL EXAMINATION: HEENT: Head is atraumatic, normocephalic. Pupils are equal, round. Sclerae anicteric. Conjunctivae are clear. Mucous membranes of the mouth are moist. Neck is supple. There is no jugular venous distention. No carotid bruit is heard. No thyromegaly. LUNGS: Clear to auscultation no wheezes, rales or rhonchi. No chest wall tendern ess is noted on palpation or with deep breathing. HEART: Regular rate and rhythm. II/ murmurs systolic ejection murmur noted. No rubs or gallops. S1 and S2 heard. ABDOMEN: Abdominal exam revealed normal bowel sounds. The abdomen was soft, non- tender, and without masses, organomegaly, or appreciable enlargement of the abdominal aorta. EXTREMITIES: Examination of the extremities revealed easily palpable radial, femoral and pedal pulses. There was no cyanosis, clubbing or edema. No calf tenderness noted. RIGHT bandaged hip repair, CDI. VASCULAR: Radial and dorsalis pedis pulses palpated, no evidence of clubbing. NEUROLOGIC: Patient is awake, alert and oriented x3. There were no obvious focal neurologic abnormalities. LAB DATA: FINAL IMPRESSION: 1. Sinus rhythm, with noted PVCs 2. LVOT obstruction on echocardiogram 3. Mild pulmonary hypertension. 5. RIGHT total hip s/p POD #1 PLAN: START metoprolol tartrate 25 mg twice daily. Patient to continue same all other medical/medication regime. Advise smoking cessation. Advise EtOH cessation. Cardiology to follow along. Objective - Vital Signs Vital signs: Vital Signs Temp 98.5 F 10/29/19 07:00 Pulse 80 10/29/19 07:00 Resp 16 10/29/19 07:00 BP 189/84 10/29/19 07:00 Pulse Ox 99 10/29/19 07:00 Intake & Output 10/28/19 10/29/19 10/29/19 18:59 06:59 18:59 Intake Total 1500 Output Total 450 850 Balance 1050 -850 Intake: IV 1500 Output: Urine 400 850 Estimated Blood Loss 50 Other: Voiding Method Indwelling Catheter Indwelling Catheter Indwelling Catheter # Voids 2 1 3 - Labs CBC & Chem 7: 10/29/19 08:53 10/29/19 08:53 Labs: Abnormal Lab Results - Last 24 Hours (Table) 10/28/19 10/29/19 10/29/19 Range/Units 17:14 08:53 08:53 RBC 3.38 L 3.08 L (3.80-5.40) m/uL MCV 117.1 H 116.2 H (80.0-100.0) fL MCH 39.3 H 39.3 H (25.0-35.0) pg Macrocytosis Marked A Marked A Sodium 131 L (137-145) mmol/L Potassium 3.3 L (3.5-5.1) mmol/L Carbon Dioxide 19 L (22-30) mmol/L Creatinine 0.36 L (0.52-1.04) mg/dL
--- NOTE | 2019-10-29 16:45 | P.PN ---
Subjective 64-year-old admitted after mechanical fall had a right hip fracture will undergo hip arthroplasty today. Patient was a valid by cardiology. Patient is low to intermediate operative risk for arthroplasty same thing was discussed with the patient and patient is agreeable for the surgery. Patient echocardiogram did show left particular hypertrophy and left ventricle outflow obstruction. 10/29/2019 Patient underwent right hip intertrochanteric fracture closed reduction with intramedullary nailing. 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 Patient was having frequent PVCs because of which patient was started on beta blane cardiology patient blood pressure is still high because of which will continue with the lisinopril. Constitutional: Denied any fatigue denied any fever. Cardio vascular: denied any chest pain, palpitations Gastrointestinal denied any nausea vomiting Pulmonary: Denied any shortness of breath cough Neurologic denied any new focal deficits All inpatient medications were reviewed and appropriate changes in these medications as dictated in the interval history and assessment and plan. Objective - Vital Signs Vital signs: Vital Signs Temp 99.2 F 10/29/19 15:31 Pulse 79 10/29/19 15:31 Resp 17 10/29/19 15:31 BP 186/88 10/29/19 15:31 Pulse Ox 99 10/29/19 15:31 Intake & Output 10/28/19 10/29/19 10/29/19 18:59 06:59 18:59 Intake Total 1500 Output Total 450 850 400 Balance 1050 -850 -400 Intake: IV 1500 Output: Urine 400 850 400 Estimated Blood Loss 50 Other: Voiding Method Indwelling Catheter Indwelling Catheter Indwelling Catheter # Voids 2 1 3 - Exam PHYSICAL EXAMINATION: GENERAL: The patient is alert and oriented x3, not in any acute distress. Well developed, well nourished. HEENT: Pupils are round and equally reacting to light. EOMI. No scleral icterus. No conjunctival pallor. Normocephalic, atraumatic. No pharyngeal erythema. No thyromegaly. CARDIOVASCULAR: S1 and S2 present. No murmurs, rubs, or gallops. PULMONARY: Chest is clear to auscultation, no wheezing or crackles. ABDOMEN: Soft, nontender, nondistended, normoactive bowel sounds. No palpable organomegaly. MUSCULOSKELETAL: Deferred to orthopedic surgery EXTREMITIES: No cyanosis, clubbing, or pedal edema. NEUROLOGICAL: Gross neurological examination did not reveal any focal deficits. SKIN: No rashes. - Labs CBC & Chem 7: 10/29/19 08:53 10/29/19 08:53 Labs: Abnormal Lab Results - Last 24 Hours (Table) 10/28/19 10/29/19 10/29/19 Range/Units 17:14 08:53 08:53 RBC 3.38 L 3.08 L (3.80-5.40) m/uL MCV 117.1 H 116.2 H (80.0-100.0) fL MCH 39.3 H 39.3 H (25.0-35.0) pg Macrocytosis Marked A Marked A Sodium 131 L (137-145) mmol/L Potassium 3.3 L (3.5-5.1) mmol/L Carbon Dioxide 19 L (22-30) mmol/L Creatinine 0.36 L (0.52-1.04) mg/dL Assessment and Plan Plan: -Right hip fracture: Patient is status post closed reduction and intramedullary nailing -Frequent PVCs for which patient was started on beta blockers -Hyponatremia possibly from 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 -Alcohol abuse: Counseling was provided - essential hypertension uncontrolled elevated patient is on lisinopril now on beta blane as well can you to monitor blood pressure -History of marijuana use and nicotine abuse: Counseling was provided
[2019-10-29] MEDS: SENNOSIDES-DOCUSATE SODIUM 1 EACH TAB PO SCH (20:32)
[2019-10-29] MEDS: METOPROLOL TARTRATE 25 MG TAB PO SCH (20:32)
[2019-10-30] MEDS: METOPROLOL TARTRATE 25 MG TAB PO SCH ×2 (07:44→20:12)
[2019-10-30] MEDS: PANTOPRAZOLE 40 MG/10 ML VIAL IVP SCH (07:44)
[2019-10-30] MEDS: ASPIRIN 81 MG PO SCH ×2 (07:44→20:12)
[2019-10-30] MEDS: lisinopriL 5 MG TAB PO SCH (07:44)
[2019-10-30] MEDS: HYDROmorphone 0.5 MG/0.5 ML SYRINGE IVP PRN ×2 (07:45→10:08)
[2019-10-30] MEDS ORDERED: lisinopriL 5 MG TAB PO STA (09:48)
[2019-10-30 10:56] LABS: African American GFR (CKD) >90 (>60 ml/min/1.73 sqM); Anion Gap 5 mmol/L; Blood Urea Nitrogen 6 mg/dL (7-17); Calcium 8.4 mg/dL (8.4-10.2); Carbon Dioxide 24 mmol/L (22-30); Chloride 102 mmol/L (98-107); Glucose 135 mg/dL (74-99); Non-African American GFR(CKD) >90 (>60 ml/min/1.73 sqM); Potassium 3.2 mmol/L (3.5-5.1); Sodium 131 mmol/L (137-145)
--- NOTE | 2019-10-30 10:59 | P.PN ---
Subjective Progress Note Date: 10/30/19 Principal diagnosis: Hypertension/Fall PROGRESS NOTE 10/30/2019 Patient seen lying in bed this a.m. in no acute distress. Pt has no current complaints of chest pain, chest pressure, shortness of breath or palpitations. Patient does complain of right hip pain with recent total right hip, states pain is uncontrolled at time with right hip. Patient heart rate well-controlled this a.m. Blood pressure remains elevated at 164/83. Will increase lisinopril to 10 mg once daily. Will add an additional 5 mg of lisinopril to this mornings 5 mg dose of lisinopril. Patient states overall she feels better as compared to yesterday except for right hip pain. Pt has not worked with PT as of yet this am. 64-year-old female past medical history significant for hypertension, chronic nicotine dependence, daily alcohol and marijuana intake and noncompliance. S/P POD #1 for RIGHT total hip after fall. Pt does not follow with cardiology on a regular bases. patient is seen lying in bed with no current complaints of chest pain, chest pressure, shortness breath or palpitations. Patient right hip dressing clean dry and intact. Patient does have associated right hip pain after surgery. Patient states she smokes 2-3 cigarettes per day. And has not drank alcohol in approximately 2 weeks. Patient states she also has history of taking Xanax for known panic attacks. No acute distress currently. PHYSICAL EXAMINATION: HEENT: Head is atraumatic, normocephalic. Pupils are equal, round. Sclerae anicteric. Conjunctivae are clear. Mucous membranes of the mouth are moist. Neck is supple. There is no jugular venous distention. No carotid bruit is heard. No thyromegaly. LUNGS: Clear to auscultation no wheezes, rales or rhonchi. No chest wall tenderness is noted on palpation or with deep breathing. HEART: Regular rate and rhythm without murmurs, rubs or gallops. S1 and S2 heard. ABDOMEN: Abdominal exam revealed normal bowel sounds. The abdomen was soft, non- tender, and without masses, organomegaly, or appreciable enlargement of the abdominal aorta. EXTREMITIES: Examination of the extremities revealed easily palpable radial, femoral and pedal pulses. There was no cyanosis, clubbing or edema. No calf tenderness noted. VASCULAR: Radial and dorsalis pedis pulses palpated, no evidence of clubbing. NEUROLOGIC: Patient is awake, alert and oriented x3. There were no obvious focal neurologic abnormalities. FINAL IMPRESSION: 1. Sinus Rhythm with PVC's 2. LVOT obstruction on echocardiogram 3. Mild pulmonary HTN 4. Right total hip POD #2 5. PLAN: Increase lisinopril to 10 mg once daily for elevated blood pressure. Patient to continue same all other medical/medication regime. Advise smoking cessation. Advise EtOH cessation. Advise better pain control. Cardiology to follow along on an as-needed basis. Objective - Vital Signs Vital signs: Vital Signs Temp 97.9 F 10/30/19 01:47 Pulse 67 10/30/19 01:47 Resp 17 10/30/19 01:47 BP 165/90 10/30/19 01:47 Pulse Ox 95 10/30/19 01:47 Intake & Output 10/29/19 10/30/19 10/30/19 18:59 06:59 18:59 Output Total 400 900 400 Balance -400 -900 -400 Output: Urine 400 900 400 Other: Voiding Method Indwelling Catheter Indwelling Catheter # Voids 3 3 - Labs CBC & Chem 7: 10/29/19 08:53 10/30/19 09:21
--- NOTE | 2019-10-30 11:42 | P.PN ---
Subjective Progress Note Date: 10/30/19 Principal diagnosis: Intertrochanteric right hip fracture. Status post close reduction with insertion of intertrochanteric nail right hip. The patient is a 64-year-old female with a past medical history of hypertension, who presented to the emergency department on 10/27/2019 after sustaining a fall at home on 10/21/2019. She states she was standing up from her recliner chair with most of her weight on her left side but lost her balance and fell onto the right. She denies hitting her head or other injuries at this time. She states she has a history of bilateral hip arthritis but has not seen an orthopedic doctor yet. She does have weakness in her legs due to this hip arthritis. Her helped her into bed where she has remained since last Thursday. The pain was progressing and decided to come to the emergency department. X-rays were taken in the ER that revealed a nondisplaced right hip intertrochanteric fracture. Patient was admitted to orthopedics for surgical intervention. Internal medicine has been consulted. 10/29/2019: The patient is postoperative day #1 status post close reduction with insertion of intertrochanteric nail of the right hip. She has no new complaints or concerns today. Vital signs are stable. 10/30/2019: Patient is postoperative day #2 status post close reduction with insertion of intertrochanteric nail right hip. She has not yet been bed. Physical therapy has not been and. She complains of pain to the leg. Vital signs are stable. Objective - Vital Signs Vital signs: Vital Signs Temp 97.9 F 10/30/19 01:47 Pulse 67 10/30/19 01:47 Resp 17 10/30/19 01:47 BP 165/90 10/30/19 01:47 Pulse Ox 95 10/30/19 01:47 Intake & Output 10/29/19 10/30/19 10/30/19 18:59 06:59 18:59 Output Total 400 900 400 Balance -400 -900 -400 Output: Urine 400 900 400 Other: Voiding Method Indwelling Catheter Indwelling Catheter # Voids 3 3 - Exam This is a pleasant 64-year-old female in no acute distress. She is alert and oriented at this time. Exam of the right lower extremity reveals that her dressing is clean, dry and intact. Dressing is removed. Incisions look good with no erythema or ecchymosis. Dermabond tape is intact. She has full foot and ankle motion without difficulty or pain. Neurovascular status to the lower extremity is intact. - Labs CBC & Chem 7: 10/29/19 08:53 10/30/19 09:21 Labs: Abnormal Lab Results - Last 24 Hours (Table) 10/30/19 Range/Units 09:21 Sodium 131 L (137-145) mmol/L Potassium 3.2 L (3.5-5.1) mmol/L BUN 6 L (7-17) mg/dL Creatinine 0.40 L (0.52-1.04) mg/dL Glucose 135 H (74-99) mg/dL Assessment and Plan (1) Intertrochanteric fracture of right hip Current Visit: Yes Status: Acute Code(s): S72.141A - DISPLACED INTERTROCHANTERIC FRACTURE OF RIGHT FEMUR, INIT SNOMED Code(s): 988983277 Plan: The clinical findings are discussed with the patient. She is encouraged to get up with physical therapy when they are able to evaluate her. She is toe-touch weightbearing to the right lower extremity. The plan is for discharge to home versus rehab on Thursday or Thursday.
--- NOTE | 2019-10-30 12:35 | P.PN ---
Subjective 64-year-old admitted after mechanical fall had a right hip fracture will undergo hip arthroplasty today. Patient was a valid by cardiology. Patient is low to intermediate operative risk for arthroplasty same thing was discussed with the patient and patient is agreeable for the surgery. Patient echocardiogram did show left particular hypertrophy and left ventricle outflow obstruction. 10/29/2019 Patient underwent right hip intertrochanteric fracture closed reduction with intramedullary nailing. 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 Patient was having frequent PVCs because of which patient was started on beta lbane cardiology patient blood pressure is still high because of which will continue with the lisinopril. 10/30/2019 Patient's serum sodium remains at 131. Patient is doing better her pain is better today. Patient's potassium is low which will be replaced patient blood pressures still elevated lisinopril dose is being increased Constitutional: Denied any fatigue denied any fever. Cardio vascular: denied any chest pain, palpitations Gastrointestinal denied any nausea vomiting Pulmonary: Denied any shortness of breath cough Neurologic denied any new focal deficits All inpatient medications were reviewed and appropriate changes in these medications as dictated in the interval history and assessment and plan. Objective - Vital Signs Vital signs: Vital Signs Temp 97.9 F 10/30/19 01:47 Pulse 67 10/30/19 01:47 Resp 17 10/30/19 01:47 BP 165/90 10/30/19 01:47 Pulse Ox 95 10/30/19 01:47 Intake & Output 10/29/19 10/30/19 10/30/19 18:59 06:59 18:59 Output Total 400 900 400 Balance -400 -900 -400 Output: Urine 400 900 400 Other: Voiding Method Indwelling Catheter Indwelling Catheter # Voids 3 3 - Exam PHYSICAL EXAMINATION: GENERAL: The patient is alert and oriented x3, not in any acute distress. Well developed, well nourished. HEENT: Pupils are round and equally reacting to light. EOMI. No scleral icterus. No conjunctival pallor. Normocephalic, atraumatic. No pharyngeal erythema. No thyromegaly. CARDIOVASCULAR: S1 and S2 present. No murmurs, rubs, or gallops. PULMONARY: Chest is clear to auscultation, no wheezing or crackles. ABDOMEN: Soft, nontender, nondistended, normoactive bowel sounds. No palpable organomegaly. MUSCULOSKELETAL: Deferred to orthopedic surgery EXTREMITIES: No cyanosis, clubbing, or pedal edema. NEUROLOGICAL: Gross neurological examination did not reveal any focal deficits. SKIN: No rashes. - Labs CBC & Chem 7: 10/29/19 08:53 10/30/19 09:21 Labs: Abnormal Lab Results - Last 24 Hours (Table) 10/30/19 Range/Units 09:21 Sodium 131 L (137-145) mmol/L Potassium 3.2 L (3.5-5.1) mmol/L BUN 6 L (7-17) mg/dL Creatinine 0.40 L (0.52-1.04) mg/dL Glucose 135 H (74-99) mg/dL Assessment and Plan Plan: -Right hip fracture: Patient is status post closed reduction and intramedullary nailing -Frequent PVCs for which patient was started on beta blockers -Hyponatremia possibly from 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 -Alcohol abuse: Counseling was provided - essential hypertension uncontrolled elevated patient is on lisinopril now on beta blane as well can you to monitor blood pressure -History of marijuana use and nicotine abuse: Counseling was provided
[2019-10-30] MEDS: SODIUM CHLORIDE 0.9% 1,000 ML IV SCH (12:55)
[2019-10-30 15:18] LABS: Basophils % (A) 0 %; Eosinophils # (A) 0.1 k/uL (0-0.7); Eosinophils % (A) 2 %; HCT 33.8 % (34.0-46.0); HGB 11.5 gm/dL (11.4-16.0); Lymphocytes # (A) 0.9 k/uL (1.0-4.8); Lymphocytes % (A) 11 %; MCH 39.4 pg (25.0-35.0); MCHC 34.1 g/dL (31.0-37.0); MCV 115.6 fL (80.0-100.0); Macrocytosis Marked; Mean Platelet Volume 7.4; Monocytes # (A) 0.7 k/uL (0-1.0); Monocytes % (A) 10 %; Neutrophils # (A) 5.7 k/uL (1.3-7.7); Neutrophils % (A) 75 %; Platelet Count 197 k/uL (150-450); RBC 2.92 m/uL (3.80-5.40); RDW 14.1 % (11.5-15.5); WBC 7.6 k/uL (3.8-10.6)
[2019-10-30] MEDS: HYDROcodone/APAP 5-325MG 1 EACH TAB PO PRN ×2 (16:05→22:08)
[2019-10-30] MEDS: SENNOSIDES-DOCUSATE SODIUM 1 EACH TAB PO SCH (20:13)
[2019-10-31] MEDS: SODIUM CHLORIDE 0.9% 1,000 ML IV SCH ×2 (00:33→15:03)
[2019-10-31] MEDS: ASPIRIN 81 MG PO SCH ×2 (07:36→20:22)
[2019-10-31] MEDS: METOPROLOL TARTRATE 25 MG TAB PO SCH ×2 (07:36→20:22)
[2019-10-31] MEDS: lisinopriL 10 MG TAB PO SCH (07:36)
[2019-10-31] MEDS: PANTOPRAZOLE 40 MG/10 ML VIAL IVP SCH (07:39)
--- NOTE | 2019-10-31 07:47 | P.PN ---
Subjective Progress Note Date: 10/31/19 Principal diagnosis: Intertrochanteric right hip fracture. Status post close reduction with insertion of intertrochanteric nail right hip. The patient is a 64-year-old female with a past medical history of hypertension, who presented to the emergency department on 10/27/2019 after sustaining a fall at home on 10/21/2019. She states she was standing up from her recliner chair with most of her weight on her left side but lost her balance and fell onto the right. She denies hitting her head or other injuries at this time. She states she has a history of bilateral hip arthritis but has not seen an orthopedic doctor yet. She does have weakness in her legs due to this hip arthritis. Her helped her into bed where she has remained since last Thursday. The pain was progressing and decided to come to the emergency department. X-rays were taken in the ER that revealed a nondisplaced right hip intertrochanteric fracture. Patient was admitted to orthopedics for surgical intervention. Internal medicine has been consulted. 10/29/2019: The patient is postoperative day #1 status post close reduction with insertion of intertrochanteric nail of the right hip. She has no new complaints or concerns today. Vital signs are stable. 10/30/2019: Patient is postoperative day #2 status post close reduction with insertion of intertrochanteric nail right hip. She has not yet been out of bed. Physical therapy has not been in. She complains of pain to the leg. Vital signs are stable. 10/31/2019: Patient is postoperative day #3 status post close reduction with insertion of intertrochanteric nail right hip. She has not yet been out of bed. Physical therapy has not been in. She complains of pain to the leg. Vital signs are stable. Objective - Vital Signs Vital signs: Vital Signs Temp 97.9 F 10/31/19 02:05 Pulse 57 L 10/31/19 02:05 Resp 18 10/31/19 02:05 BP 169/78 10/31/19 02:05 Pulse Ox 97 10/31/19 02:05 Intake & Output 10/30/19 10/31/19 10/31/19 18:59 06:59 18:59 Output Total 850 250 Balance -850 -250 Output: Urine 850 250 Other: Voiding Method Indwelling Catheter Indwelling Catheter # Voids 3 200 - Exam This is a pleasant 64-year-old female in no acute distress. She is alert and oriented at this time. Exam of the right lower extremity reveals that her dressing is clean, dry and intact. Dressing is removed. Incisions look good with no erythema or ecchymosis. Dermabond tape is intact. She has full foot and ankle motion without difficulty or pain. Neurovascular status to the lower extremity is intact. - Labs CBC & Chem 7: 10/30/19 14:57 10/30/19 09:21 Labs: Abnormal Lab Results - Last 24 Hours (Table) 10/30/19 10/30/19 Range/Units 09:21 14:57 RBC 2.92 L (3.80-5.40) m/uL Hct 33.8 L (34.0-46.0) % MCV 115.6 H (80.0-100.0) fL MCH 39.4 H (25.0-35.0) pg Lymphocytes # 0.9 L (1.0-4.8) k/uL Macrocytosis Marked A Sodium 131 L (137-145) mmol/L Potassium 3.2 L (3.5-5.1) mmol/L BUN 6 L (7-17) mg/dL Creatinine 0.40 L (0.52-1.04) mg/dL Glucose 135 H (74-99) mg/dL Assessment and Plan (1) Intertrochanteric fracture of right hip Current Visit: Yes Status: Acute Code(s): S72.141A - DISPLACED INTERTROCHANTERIC FRACTURE OF RIGHT FEMUR, INIT SNOMED Code(s): 082551846 Plan: The clinical findings are discussed with the patient. She is encouraged to get up with physical therapy when they are able to evaluate her. She is toe-touch weightbearing to the right lower extremity. The plan is for discharge to home versus rehab on Thursday.
[2019-10-31] MEDS: HYDROcodone/APAP 5-325MG 1 EACH TAB PO PRN ×3 (07:48→20:28)
[2019-10-31 10:35] LABS: African American GFR (CKD) >90 (>60 ml/min/1.73 sqM); Anion Gap 4 mmol/L; Blood Urea Nitrogen 7 mg/dL (7-17); Calcium 8.5 mg/dL (8.4-10.2); Carbon Dioxide 27 mmol/L (22-30); Chloride 102 mmol/L (98-107); Glucose 116 mg/dL (74-99); Non-African American GFR(CKD) >90 (>60 ml/min/1.73 sqM); Potassium 3.8 mmol/L (3.5-5.1); Sodium 133 mmol/L (137-145)
--- NOTE | 2019-10-31 14:35 | P.PN ---
Subjective Progress Note Date: 10/31/19 Principal diagnosis: 64-year-old admitted after mechanical fall had a right hip fracture will undergo hip arthroplasty today. Patient was a valid by cardiology. Patient is low to intermediate operative risk for arthroplasty same thing was discussed with the patient and patient is agreeable for the surgery. Patient echocardiogram did show left particular hypertrophy and left ventricle outflow obstruction. 10/29/2019 Patient underwent right hip intertrochanteric fracture closed reduction with intramedullary nailing. 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 Patient was having frequent PVCs because of which patient was started on beta blane cardiology patient blood pressure is still high because of which will continue with the lisinopril. 10/30/2019 Patient's serum sodium remains at 131. Patient is doing better her pain is bett er today. Patient's potassium is low which will be replaced patient blood pressures still elevated lisinopril dose is being increased Constitutional: Denied any fatigue denied any fever. Cardio vascular: denied any chest pain, palpitations Gastrointestinal denied any nausea vomiting Pulmonary: Denied any shortness of breath cough Neurologic denied any new focal deficits All inpatient medications were reviewed and appropriate changes in these medications as dictated in the interval history and assessment and plan. 10/31/2019 Patient is seen and evaluated in follow-up currently sitting up in the chair and appears to be in no acute distress. Patient states she has been up and working with physical therapy with a walker status post right hip arthroplasty. Will continue to follow along with orthopedic surgery closely. Sodium is improved today at 133, potassium is 3.8. Patient states she was nauseated and vomiting yesterday status post anesthesia but feels better today and is tolerating clear liquids and being advanced. Will continue to monitor blood pressure closely as lisinopril has been increased to 10 mg daily. Discussed with patient about discharge planning and primary care follow-up and patient states she does not have a doctor and will need resources upon discharge. Currently no reports of chest pain, shortness of breath, or palpitations. Patient is afebrile. No re ports of nausea or vomiting today and patient is tolerating diet. Objective - Vital Signs Vital signs: Vital Signs Temp 97.9 F 10/31/19 02:05 Pulse 57 L 10/31/19 08:00 Resp 18 10/31/19 08:00 BP 169/78 10/31/19 02:05 Pulse Ox 97 10/31/19 02:05 Intake & Output 10/30/19 10/31/19 10/31/19 18:59 06:59 18:59 Output Total 850 250 Balance -850 -250 Output: Urine 850 250 Other: Voiding Method Indwelling Catheter Indwelling Catheter Indwelling Catheter # Voids 3 200 - Exam GENERAL: The patient is alert and oriented x3, not in any acute distress. Well developed, well nourished. HEENT: Pupils are round and equally reacting to light. EOMI. No scleral icterus. No conjunctival pallor. Normocephalic, atraumatic. No pharyngeal erythema. No thyromegaly. CARDIOVASCULAR: S1 and S2 present. No murmurs, rubs, or gallops. PULMONARY: Chest is clear to auscultation, no wheezing or crackles. ABDOMEN: Soft, nontender, nondistended, normoactive bowel sounds. No palpable organomegaly. MUSCULOSKELETAL: Deferred to orthopedic surgery EXTREMITIES: No cyanosis, clubbing, or pedal edema. NEUROLOGICAL: Gross neurological examination did not reveal any focal deficits. SKIN: No rashes. - Labs CBC & Chem 7: 10/30/19 14:57 10/31/19 10:02 Labs: Abnormal Lab Results - Last 24 Hours (Table) 10/30/19 10/31/19 Range/Units 14:57 10:02 RBC 2.92 L (3.80-5.40) m/uL Hct 33.8 L (34.0-46.0) % MCV 115.6 H (80.0-100.0) fL MCH 39.4 H (25.0-35.0) pg Lymphocytes # 0.9 L (1.0-4.8) k/uL Macrocytosis Marked A Sodium 133 L (137-145) mmol/L Creatinine 0.33 L (0.52-1.04) mg/dL Glucose 116 H (74-99) mg/dL Assessment and Plan Assessment: -Right hip fracture: Patient is status post closed reduction and intramedullary nailing -Frequent PVCs for which patient was started on beta blockers -Hyponatremia possibly from SIADH from pain, Improving. Current sodium is 133 -Alcohol abuse: Counseling was provided -essential hypertension uncontrolled elevated patient is Continued on lisinopril as well as metoprolol and will continue to monitor vital signs closely -History of marijuana use and nicotine abuse: Counseling was provided Plan: We'll continue to monitor vital signs and labs closely and continue with lisinopril and metoprolol at this time. Continue with gentle IV hydration and will repeat a.m. labs. Will continue to follow along closely with orthopedic surgery. Case management and social work following patient will likely be going to a subacute rehab for continued PT/OT therapy once stabilized and discharged. Further recommendations to follow.
[2019-10-31] MEDS: SENNOSIDES-DOCUSATE SODIUM 1 EACH TAB PO SCH (20:23)
[2019-11-01] MEDS: HYDROcodone/APAP 5-325MG 1 EACH TAB PO PRN ×3 (02:11→13:20)
[2019-11-01] MEDS: SODIUM CHLORIDE 0.9% 1,000 ML IV SCH (04:19)
[2019-11-01] MEDS: METOPROLOL TARTRATE 25 MG TAB PO SCH (07:23)
[2019-11-01] MEDS: ASPIRIN 81 MG PO SCH (07:23)
[2019-11-01] MEDS: lisinopriL 10 MG TAB PO SCH (07:23)
[2019-11-01] MEDS: PANTOPRAZOLE 40 MG/10 ML VIAL IVP SCH (07:23)
[2019-11-01 07:53] LABS: Basophils % (A) 1 %; Eosinophils # (A) 0.1 k/uL (0-0.7); Eosinophils % (A) 2 %; HCT 35.3 % (34.0-46.0); Lymphocytes % (A) 16 %; MCH 39.9 pg (25.0-35.0); MCV 117.2 fL (80.0-100.0); Macrocytosis Marked; Mean Platelet Volume 7.4; Monocytes # (A) 0.5 k/uL (0-1.0); Monocytes % (A) 8 %; Neutrophils # (A) 4.6 k/uL (1.3-7.7); Neutrophils % (A) 72 %; Platelet Count 284 k/uL (150-450); RBC 3.01 m/uL (3.80-5.40); RDW 14.2 % (11.5-15.5); WBC 6.4 k/uL (3.8-10.6)
[2019-11-01 08:01] LABS: African American GFR (CKD) >90 (>60 ml/min/1.73 sqM); Anion Gap 5 mmol/L; Blood Urea Nitrogen 8 mg/dL (7-17); Calcium 8.5 mg/dL (8.4-10.2); Carbon Dioxide 30 mmol/L (22-30); Chloride 100 mmol/L (98-107); Glucose 100 mg/dL (74-99); Non-African American GFR(CKD) >90 (>60 ml/min/1.73 sqM); Potassium 3.1 mmol/L (3.5-5.1); Sodium 135 mmol/L (137-145)
[2019-11-01] MEDS ORDERED: POTASSIUM CHLORIDE ER 20 MEQ TAB.ER PO STA (08:53)
--- NOTE | 2019-11-01 09:17 | P.DS ---
Providers Date of admission: 10/27/19 14:01 Expected date of discharge: 11/01/19 Attending physician: Russ Adorno Consults: 10/27/19 14:01 Consult Physician Stat Consulting Provider: Yani Roque Consult Reason/Comments: medical mgmt, hip fracture Do you want consulting provider notified?: Yes 10/27/19 15:56 Consult Physician Routine Consulting Provider: [facility] Consult Reason/Comments: surgical clearence Do you want consulting provider notified?: Yes Primary care physician: Stated None - Discharge Diagnosis(es) (1) Intertrochanteric fracture of right hip Current Visit: Yes Status: Acute Hospital Course: The patient is a 64-year-old female with a past medical history of hypertension, who presented to the emergency department on 10/29/2019 after sustaining a fall at home on 10/21/2019. She states she was standing up from her recliner chair with most of her weight on her left side but lost her balance and fell onto the right. She denies hitting her head or other injuries at this time. She states she has a history of bilateral hip arthritis but has not seen an orthopedic doctor yet. She does have weakness in her legs due to this hip arthritis. Her helped her into bed where she has remained since last Thursday. The pain was progressing and decided to come to the emergency department. X-rays were taken in the ER that revealed a nondisplaced right hip intertrochanteric fracture. Patient was admitted to orthopedics for surgical intervention. Internal medicine has been consulted. The patient's pain at this time is controlled as long as she is laying in bed. The patient is admitted to our service for surgical intervention and care. Patient is taken to surgery on 10/30/2019 for close reduction and insertion of intertrochanteric nail of the right hip. The procedure was performed without complication or sequelae. The patient had difficulty with ambulation and activity. She was not seen by physical therapy thru the weekend. It was recommended that the patient go to inpatient rehab.. Vital signs and labs are stable on postoperative day #4. Patient is discharged to inpatient rehab in good condition. Please see med rec for accurate list of discharge medications. Patient Condition at Discharge: Good Plan - Discharge Summary Discharge Rx Participant: Yes New Discharge Prescriptions: New Aspirin [Adult Low Dose Aspirin EC] 81 mg PO BID #1 tablet. HYDROcodone/APAP 5-325MG [[place] 5-325] 1 - 2 each PO Q4-6H PRN #50 tab PRN Reason: Pain Sennosides-Docusate Sodium [Senokot-S] 1 tab PO BID #60 tablet No Action Acetaminophen [Tylenol 8 Hour] 1,300 mg PO DAILY PRN PRN Reason: Pain Discharge Medication List Acetaminophen [Tylenol 8 Hour] 1,300 mg PO DAILY PRN 10/27/19 [History] Aspirin [Adult Low Dose Aspirin EC] 81 mg PO BID #1 tablet. 11/01/19 [Rx] HYDROcodone/APAP 5-325MG [[place] 5-325] 1 - 2 each PO Q4-6H PRN #50 tab 11/01/19 [Rx] Sennosides-Docusate Sodium [Senokot-S] 1 tab PO BID #60 tablet 11/01/19 [Rx] Follow up Appointment(s)/Referral(s): Kayy Mack, PAC [PHYSICIAN PHOTOGRAPHIC PROCESS WORKER] - 3 Weeks [facility], [NON-STAFF] - 1 Week Nonstaff,Physician [REFERRING] - 1-2 days Activity/Diet/Wound Care/Special Instructions: Please go to [email or web address] to find local PCP. Toe touch wt bearing MARA peterson. May shower. Discharge Disposition: TRANSFER TO SNF/ECF
[2019-11-01 14:43] VITALS: RESP 18
[2019-11-01 15:19] VITALS: BP 153/92; PULSE 74; TEMP 98.5
--- NOTE | 2019-11-01 16:18 | P.PN ---
Subjective Progress Note Date: 11/01/19 Principal diagnosis: 64-year-old admitted after mechanical fall had a right hip fracture will undergo hip arthroplasty today. Patient was a valid by cardiology. Patient is low to intermediate operative risk for arthroplasty same thing was discussed with the patient and patient is agreeable for the surgery. Patient echocardiogram did show left particular hypertrophy and left ventricle outflow obstruction. 10/29/2019 Patient underwent right hip intertrochanteric fracture closed reduction with intramedullary nailing. 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 Patient was having frequent PVCs because of which patient was started on beta blane cardiology patient blood pressure is still high because of which will continue with the lisinopril. 10/30/2019 Patient's serum sodium remains at 131. Patient is doing better her pain is bett er today. Patient's potassium is low which will be replaced patient blood pressures still elevated lisinopril dose is being increased Constitutional: Denied any fatigue denied any fever. Cardio vascular: denied any chest pain, palpitations Gastrointestinal denied any nausea vomiting Pulmonary: Denied any shortness of breath cough Neurologic denied any new focal deficits All inpatient medications were reviewed and appropriate changes in these medications as dictated in the interval history and assessment and plan. 10/31/2019 Patient is seen and evaluated in follow-up currently sitting up in the chair and appears to be in no acute distress. Patient states she has been up and working with physical therapy with a walker status post right hip arthroplasty. Will continue to follow along with orthopedic surgery closely. Sodium is improved today at 133, potassium is 3.8. Patient states she was nauseated and vomiting yesterday status post anesthesia but feels better today and is tolerating clear liquids and being advanced. Will continue to monitor blood pressure closely as lisinopril has been increased to 10 mg daily. Discussed with patient about discharge planning and primary care follow-up and patient states she does not have a doctor and will need resources upon discharge. Currently no reports of chest pain, shortness of breath, or palpitations. Patient is afebrile. No re ports of nausea or vomiting today and patient is tolerating diet. 11/01/2019 Patient is seen in follow-up currently awaiting to go to rehab for physical therapy. Following closely with orthopedic surgery. Patient continues to be slightly hypertensive although has improved and will continue on lisinopril along with metoprolol. Discussed with the patient about establishing with a primary care provider in the outpatient setting. She denies any chest pain, shortness of breath, or palpitations. Patient is afebrile. No reports of nausea or vomiting and patient is tolerating diet. Surgical site of the right hip looks is dry and intact with no surrounding erythema or swelling noted. Objective - Vital Signs Vital signs: Vital Signs Temp 98.5 F 11/01/19 15:18 Pulse 74 11/01/19 15:18 Resp 18 11/01/19 15:18 BP 153/92 11/01/19 15:18 Pulse Ox 91 L 11/01/19 15:18 Intake & Output 10/31/19 11/01/19 11/01/19 18:59 06:59 18:59 Intake Total 500 500 Output Total 650 100 Balance 500 -650 400 Intake: Oral 500 500 Output: Urine 650 100 Other: Voiding Method Indwelling Catheter Indwelling Catheter Indwelling Catheter # Voids 2 - Exam GENERAL: The patient is alert and oriented x3, not in any acute distress. Well developed, well nourished. HEENT: Pupils are round and equally reacting to light. EOMI. No scleral icterus. No conjunctival pallor. Normocephalic, atraumatic. No pharyngeal erythema. No thyromegaly. CARDIOVASCULAR: S1 and S2 present. No murmurs, rubs, or gallops. PULMONARY: Chest is clear to auscultation, no wheezing or crackles. ABDOMEN: Soft, nontender, nondistended, normoactive bowel sounds. No palpable organomegaly. MUSCULOSKELETAL: Deferred to orthopedic surgery EXTREMITIES: No cyanosis, clubbing, or pedal edema. Right hip surgical site is dry and intact with glue noted and no surrounding erythema or swelling NEUROLOGICAL: Gross neurological examination did not reveal any focal deficits. SKIN: No rashes. - Labs CBC & Chem 7: 11/01/19 07:11/01/19 07:01 Labs: Abnormal Lab Results - Last 24 Hours (Table) 11/01/19 11/01/19 Range/Units 07: 07:01 RBC 3.01 L (3.80-5.40) m/uL MCV 117.2 H (80.0-100.0) fL MCH 39.9 H (25.0-35.0) pg Macrocytosis Marked A Sodium 135 L (137-145) mmol/L Potassium 3.1 L (3.5-5.1) mmol/L Creatinine 0.33 L (0.52-1.04) mg/dL Glucose 100 H (74-99) mg/dL Assessment and Plan Assessment: -Right hip fracture: Patient is status post closed reduction and intramedullary nailing -Frequent PVCs for which patient was started on beta blockers -Hypokalemia -Hyponatremia possibly from SIADH from pain, Improving. Current sodium is 133 -Alcohol abuse: Counseling was provided -essential hypertension uncontrolled elevated patient is Continued on lisinopril as well as metoprolol and will continue to monitor vital signs closely -History of marijuana use and nicotine abuse: Counseling was provided Plan: We'll continue to monitor vital signs and labs closely and continue with lisinopril and metoprolol at this time. Potassium was found to be 3.1 and replaced. Will continue to follow along closely with orthopedic surgery. Case management and social work following patient will likely be going to a subacute rehab for continued PT/OT therapy once stabilized and discharged. Further recommendations to follow. Patient will likely be discharged to rehab today
[2019-11-02] MEDS ORDERED: PANTOPRAZOLE 40 MG TABLET PO SCH (07:30)
--- NOTE | 2019-11-02 14:46 | CDI ---
Documentation Clarification Form Date: 11/02/19 From: Sruthi Farias Phone: If you have a question about this query, please contact Teressa Rodgers, Jewelry Jobber at [phone] between 8am and 5pm. Admit Date: 10/27/19 Discharge Date:11/01/19 Patient Name: Kaitlyn Alvarez Visit Number: [id number] ATTENTION: The Clinical Documentation Specialists (CDI) and [facility] Coding Staff appreciate your assistance in clarifying documentation. Please respond to the clarification below the line at the bottom and electronically sign. The CDI & [facility] Coding staff will review the response and follow-up if needed. Please note: Queries are made part of the Legal Health Record. If you have any questions, please contact the author of this message via ITS. Dear Dr. Roque The patient presented with the following: right hip fracture. Uncontrolled hypertension is documented in your consult note and progress notes. History/Risk Factors: Hypertension, anxiety, right hip fracture, mitral valve regurgitation, pulmonary hypertension Clinical Indicators: Elevated blood pressure Radiology findings: Chest x-ray - no acute process Vital Signs: T. 98.5, P. 80, R. 18, BP 176/105 Blood pressure: 10/26 - 176/105, 160/93, 178/96, 194/92, 180/88, 180/92, 188/78 EKG: changes consistent with a chronic untreated hypertension including diffuse ST depressions, left ventricle hypertrophy and strain pattern. Treatment: Lisinopril 10 mg once daily - new med: In your professional opinion, can you please clarify ? Emergency Urgency Crisis Other, please specify Unable to determine none of the above MTDD
== END 2019-11-01 16:06 | disposition home health service (06) | DRG 481 ==
LOC: EC 11:54 → 4SSUR 14:01
PROVIDERS: ADMIT Orthopaedic Surgery; ATTEND Orthopaedic Surgery
PROC: 0QS636Z Reposition Right Upper Femur with Intramedullary Internal Fixation Device, Percutaneous Approach (ICD-10-PCS; principal; 2019-10-28 07:30)
DX: S72.141A Displaced intertrochanteric fracture of right femur, initial encounter for closed fracture (principal); E22.2 Syndrome of inappropriate secretion of antidiuretic hormone; I27.20 Pulmonary hypertension, unspecified; I11.9 Hypertensive heart disease without heart failure; E87.6 Hypokalemia; F17.210 Nicotine dependence, cigarettes, uncomplicated; F41.0 Panic disorder [episodic paroxysmal anxiety]; I49.3 Ventricular premature depolarization; M16.0 Bilateral primary osteoarthritis of hip; I34.0 Nonrheumatic mitral (valve) insufficiency; Z11.59 Encounter for screening for other viral diseases; Z91.19 Patient's noncompliance with other medical treatment and regimen; Z90.710 Acquired absence of both cervix and uterus; Z88.0 Allergy status to penicillin; Z80.3 Family history of malignant neoplasm of breast; Z82.49 Family history of ischemic heart disease and other diseases of the circulatory system; Z80.8 Family history of malignant neoplasm of other organs or systems; Z82.61 Family history of arthritis; Z82.0 Family history of epilepsy and other diseases of the nervous system; Z71.6 Tobacco abuse counseling; Z71.41 Alcohol abuse counseling and surveillance of alcoholic; W01.0XXA Fall on same level from slipping, tripping and stumbling without subsequent striking against object, initial encounter; Y92.009 Unspecified place in unspecified non-institutional (private) residence as the place of occurrence of the external cause
CPT/HCPCS: 36415; 71045; 73502; 80048; 80053; 80061; 81001; 82550; 85025; 85027; 85610; 85730; 93005; 93306; 96361; 96374; 96376; 99285

== ENCOUNTER → 2020-12-24 | Outpatient (CLI) | payer MEDICARE ==
[2020-12-24 14:07] LABS: HCT 40.7 % (34.0-46.0); HGB 13.4 gm/dL (11.4-16.0); MCH 32.2 pg (25.0-35.0); MCHC 32.9 g/dL (31.0-37.0); Mean Platelet Volume 6.8; Platelet Count 249 k/uL (150-450); RBC 4.16 m/uL (3.80-5.40); RDW 12.6 % (11.5-15.5); WBC 7.8 k/uL (3.8-10.6)
[2020-12-24 14:15] LABS: INR 0.9 (<1.2); Partial Thromboplastin Time 23.6 sec (22.0-30.0); Prothrombin Time 10.1 sec (9.0-12.0)
[2020-12-24 14:23] LABS: ALT 13 U/L (4-34); AST 22 U/L (14-36); African American GFR (CKD) >90 (>60 ml/min/1.73 sqM); Albumin 3.8 g/dL (3.5-5.0); Alkaline Phosphatase 104 U/L (38-126); Anion Gap 5 mmol/L; Blood Urea Nitrogen 12 mg/dL (7-17); Calcium 9.8 mg/dL (8.4-10.2); Carbon Dioxide 30 mmol/L (22-30); Chloride 103 mmol/L (98-107); Glucose 108 mg/dL (74-99); Non-African American GFR(CKD) >90 (>60 ml/min/1.73 sqM); Potassium 4.9 mmol/L (3.5-5.1); Sodium 138 mmol/L (137-145); Total Bilirubin 0.5 mg/dL (0.2-1.3); Total Protein 6.5 g/dL (6.3-8.2)
[2020-12-24 16:19] LABS: Appearance,Urine Cloudy (Clear); Bilirubin,Urine Negative (Negative); Blood,Urine Negative (Negative); Color,Urine Yellow; Glucose,Urine (UA) Negative (Negative); Hyaline Casts,Urine 3 /lpf (0-2); Ketones,Urine Negative (Negative); Leukocyte Esterase,Urine Large (Negative); Mucus,Urine Rare /hpf; Nitrite,Urine Negative (Negative); PH, Urine 5.5 (5.0-8.0); Protein,Urine Trace (Negative); RBC,Urine 1 /hpf (0-5); Specific Gravity,Urine 1.029 (1.001-1.035); Squamous Epithelial Cell,Urine 11 /hpf (0-4); WBC,Urine 6 /hpf (0-5)
== END | disposition home or self-care (01) ==
LOC: LABPAT 13:06
PROVIDERS: ATTEND Orthopaedic Surgery
DX: Z01.818 Encounter for other preprocedural examination (principal); I49.49 Other premature depolarization; R94.31 Abnormal electrocardiogram [ECG] [EKG]
CPT/HCPCS: 36415; 80053; 81001; 85027; 85610; 85730; 87070; 93005

== ENCOUNTER 2021-01-01 05:32 | Day surgery (SDC) | payer MEDICARE ==
[2020-12-25 12:56] VITALS: BMI 21.4
[~2021-01-01 05:32] MED LIST: ACETAMINOPHEN TAB 500 MG TAB PO PRN; GABAPENTIN 300 MG CAP PO PRN; MELOXICAM 7.5 MG TAB PO PRN; TRANEXAMIC ACID 1,000 MG in SODIUM CHLORIDE 0.9% 100 ML IVPB PRN
[2021-01-01] MEDS ORDERED: LIDOCAINE 1% (10MG/ML) FOR IV START INTRADERMA PRN (05:43)
[2021-01-01] MEDS ORDERED: ONDANSETRON 4 MG/2 ML VIAL IVP ONE (05:43)
[2021-01-01] MEDS: LACTATED RINGERS 1,000 ML IV SCH (06:17)
[2021-01-01] MEDS ORDERED: SODIUM CHLORIDE 0.9% IRRIG 1,000 ML BTL IRRIGATION ONE (06:50)
[2021-01-01] MEDS ORDERED: SODIUM CHLORIDE 0.9% 100 ML BAG ONE (06:50)
[2021-01-01] MEDS ORDERED: PROPOFOL 10 MG/ML 20 ML VIAL IV ONE (06:50)
[2021-01-01] MEDS ORDERED: MIDAZOLAM 2 MG/2 ML VIAL ONE (06:50)
[2021-01-01] MEDS ORDERED: HEPARIN SODIUM,PORCINE 10,000 UNIT/ML 1 ML VIAL ONE (06:50)
[2021-01-01] MEDS ORDERED: fentaNYL (PF) 50 MCG/ML 2 ML AMP ONE (06:50)
[2021-01-01] MEDS ORDERED: KETAMINE 10 MG/ML 20 ML VIAL ONE (06:50)
[2021-01-01] MEDS ORDERED: LABETALOL 5 MG/ML VIAL MDV ONE (06:50)
[2021-01-01] MEDS ORDERED: TRANEXAMIC ACID 1,000 MG/10 ML VIAL ONE (06:50)
[2021-01-01] MEDS ORDERED: ceFAZolin 1,000 MG in SODIUM CHLORIDE 0.9% 1,000 ML IRRIGATION ONE (06:53)
[2021-01-01] MEDS: ROPIVACAINE/EPI/CLONIDINE/KET 50 ML SYRINGE MISCELLANE PRN ×2 (07:25→08:02)
--- NOTE | 2021-01-01 08:08 | P.OP ---
Date of Procedure: 01/01/21 Preoperative Diagnosis: Severe osteoarthritis left hip Postoperative Diagnosis: Severe osteoarthritis left hip Procedure(s) Performed: Left total hip arthroplasty with a direct anterior approach Implants: [employer] Polarstem standard size 2 [employer] R3, 3 hole hemispherical acetabular shell, 48 mm [employer] Reflection 6.5 mm cancellus screw, 20 mm, 25 mm [employer] R3, XLPE 20 acetabular liner [employer] Oxinium femoral head 32 mm, +0 All components were press-fit. The articulation is Oxinium on polyethylene. Anesthesia: spinal Surgeon: Goran Hilton Production Scheduler #1: Anitha Rodriguez Estimated Blood Loss (ml): 100 Pathology: other (Femoral head) Condition: stable Disposition: PACU Indications for Procedure: After failure of conservative treatment we discussed the surgical and nonsurg ical treatment options at length. Patient wishes to proceed with a total hip arthroplasty with a direct anterior approach. Complications specific to this procedure were discussed at length, including but not limited to infection, leg length discrepancy, dislocation, nerve injury, and fracture. Covid-19 was also discussed at length with the patient, and they are aware of the current policies and procedures. The patient was given the option of delaying surgery, but they elect to proceed knowing these risks. Patient is aware of all these complications and informed consent was obtained Operative Findings: The operative findings are consistent with severe osteoarthritis of the left hip Description of Procedure: Patient was seen and evaluated in the preoperative area and the consent was reviewed. The operative site was marked with a skin marker. The patient was then brought to the operating room and given preoperative antibiotics intravenously. 1 g of Tranexamic acid was also given intravenously. A spinal anesthetic was administered by the anesthesia department. The patient was then placed on the [place] table with the bony prominences well-padded. The hip area was then prepped with a ChloraPrep solution and draped in the usual sterile fashion. A universal timeout was then performed, which confirmed the patient's name, surgical site, ALLERGIES, and procedure being performed on the consent. Next the incision site was located at 1 cm distal and 2 cm lateral to the anterior superior iliac spine. The skin and subcutaneous tissues were sharply incised. Incision was carefully dissected down to the fascia overlying the tensor fascia josep muscle. This fascia was then incised in line with the incision. Care was taken to stay laterally in order to avoid injuring the lateral femoral cutaneous nerve. Next, using blunt finger dissection, the tensor fascia josep muscle was dissected off its investing fascia. The muscle was then carefully retracted laterally with a cobra retractor over the lateral neck of the femur. Next, the circumflex vessels were identified and cauterized using the AquaMantis device. The anterior hip capsule was then exposed. The capsule was then opened and an inverted T fashion. Cobra retractors were then placed intracapsularly. The retractors were maintained intracapsular throughout the procedure. The proximal femur was then visualized. A small amount of traction was placed on the leg. The femoral neck was then osteotomized appropriate level above the lesser trochanter. A small wedge of bone was then removed from the remaining femoral head. Next, using a corkscrew the femoral head was removed from the acetabulum. On gross visual inspection, the femoral head had complete loss of articular cartilage and multiple periarticular osteophytes. The femoral head was then measured. Attention was then turned to the acetabulum. The acetabulum was exposed and any remaining labrum was excised. Sequential reaming of the acetabulum was performed using fluoroscopic guidance until there was a good bed of bleeding cancellus bone. When the appropriate size was reached, a trial was then placed. The position and fit of the trial was checked with fluoroscopy. The trial was then removed. Then, using fluoroscopic guidance, the final implant was impacted at 20 of anteversion and 40 of abduction, and fully seated in the acetabulum. 2 screws were then placed in the acetabulum. Again fluoroscopy was used to check position of the screws. Next, the liner was then impacted, with a 20 elevated liner located in the anterior superior quadrant. Component locking was confirmed. Attention was then directed to the femur. With the aid of the [place] table, the femur was externally rotated to approximately 130, extended, and adducted under the opposite leg. A side hook was then placed under the proximal femur, and the side hook elevator was used to elevate the proximal femur while releasing the capsule. Retractors were then placed. A capsular release was performed, as well as a release of the conjoined tendon, which afforded excellent visualization of the proximal femur. Next, a box osteotome was used to lateralize the proximal femur. A hand woven carpet and rug mender was then used to locate the femoral canal. Sequential broaching was then performed with appropriate size wh ich afforded excellent fixation in the proximal femur. A trial was then placed with appropriate head and neck, and the hip was gently reduced with the aid of the [place] table. Fluoroscopy was then used to check position of the components, as well as to ensure equal leg lengths. The hip was then gently dislocated and the trials were then removed. Final implants were then impacted and the hip was again reduced. Final fluoroscopic x-rays confirmed that the components were in anatomic position, as well as equal leg lengths. The hip was also taken through range of motion, and found to be stable. The hip was then copiously irrigated with antibiotic solution with pulsatile lavage. The hip was then irrigated with Irrisept solution. The soft tissues were then injected with a ropivacaine solution, which consisted of 246.25 mg of ropivacaine, 0.5 mg of epinephrine, 30 mg of Toradol, 80 g of clonidine, and 48.45 mL of sterile water, for a total of 100 mL of fluid injected. A second dose of 1 g of Tranexamic acid was also given intravenously. Any blood collected by Cell Saver was then returned to the patient at this time. The fascia was then closed with 2-0 strata fix suture. The subcutaneous tissue was closed with 3-0 Vicryl. The subcuticular tissue was closed with 3-0 strata fix suture. The skin was then closed with Exofin skin glue. After the glue and dried, and Optifoam silver impregnated dressing was applied. The patient was then transferred to the recovery room in stable condition. The scheduling assistant GEOFF Wilcox was required due to the complexity of surgery, and the need for skilled surgical territory manager for positioning, draping, exposure, retraction, and closure of the wound.
[2021-01-01] MEDS ORDERED: ONDANSETRON 4 MG/2 ML VIAL IVP PRN (08:38)
[2021-01-01] MEDS ORDERED: NALOXONE 0.4 MG/ML 1 ML VIAL IV PRN (08:38)
[2021-01-01] MEDS ORDERED: HYDROmorphone 0.5 MG/0.5 ML SYRINGE IVP PRN (08:49)
[2021-01-01] MEDS ORDERED: HYDROmorphone 0.2 MG/1 ML SYRINGE IVP PRN (08:49)
[2021-01-01] MEDS ORDERED: MAGNESIUM HYDROXIDE 2,400 MG/10 ML CUP PO PRN (08:49)
[2021-01-01] MEDS ORDERED: HYDROcodone/APAP 7.5-325MG 1 EACH TAB PO PRN (08:53)
--- NOTE | 2021-01-01 09:16 | XR ---
EXAMINATION TYPE: XR Hip Limited LT DATE OF EXAM: 01/01/2021 COMPARISON: None HISTORY: Postop hip surgery TECHNIQUE: AP left hip FINDINGS: There is placement of a femoral prosthesis with acetabular component. No acute fractures ar e evident. Postsurgical soft tissue changes are evident. IMPRESSION: 1. No acute fracture post left hip replacement.
--- NOTE | 2021-01-01 09:26 | FL ---
Fluoroscopy INDICATION: Pain FINDINGS: Fluoroscopy time: 30 seconds. Images obtained: 0. IMPRESSIONS: 1. Documentation of fluoroscopy.
[2021-01-01] MEDS: HYDROmorphone 0.5 MG/0.5 ML SYRINGE IVP PRN ×3 (10:16→17:49)
[2021-01-01] MEDS: ASPIRIN 325 MG TAB PO SCH ×2 (12:29→19:42)
[2021-01-01] MEDS: SODIUM CHLORIDE 0.9% 1,000 ML IV SCH (12:30)
[2021-01-01] MEDS: HYDROcodone/APAP 7.5-325MG 1 EACH TAB PO PRN (15:44)
--- NOTE | 2021-01-01 15:59 | P.CONS ---
History of Present Illness - Reason for Consult Consult date: 01/01/21 Medical management Requesting physician: Goran Hilton - Chief Complaint Left hip surgery - History of Present Illness Consultation: This is a 65-year-old patient who follows with Dr. Castillo. Patient has undergone left total hip arthroplasty. Postprocedure some pain is present. No nausea vomiting. No chest pain. Patient has arthritis in multiple joints. Left hip pain has been progressive. Getting worse. Worse with activity better with rest. Has failed conservative management. Patient has arthritis in other joints. Does get reflux symptoms. Also urinary incontinence with coughing and sneezing. Has trouble sleeping for quite some time. Normally has about 2 bowel movements a day sometimes loose. Has been losing some weight. Review of systems: GEN.: Tired EYES: None HEENT: None NECK: None RESPIRATORY: None CARDIOVASCULAR: None GASTROINTESTINAL: Heartburn GENITOURINARY: Urinary incontinence MUSCULOSKELETAL: Many joint pains LYMPHATICS: None HEMATOLOGICAL: None PSYCHIATRY: Anxious NEUROLOGICAL: Uses a walker at home Past medical history to include: GERD, hypertension, osteoarthritis, hemorrhoids Social history: Does use marijuana sometime diabetes for sleeping and for pain. Patient smoking since the age of 12 up to 2 months ago about a pack a day. No alcohol. Family history: CHF, osteoarthritis, breast cancer, skin cancer, dementia Physical examination: VITAL SIGNS: 98.6, 63, 16, 159/72, 93% room air GENERAL: BMI 21.4, laying in bed, awake. EYES: Pupils equal. Conjunctiva normal. HEENT: External appearance of nose and ears normal, oral cavity grossly normal. NECK: JVD not raised; masses not palpable. HEART: First and second heart sounds are normal; no edema. LUNGS: Respiratory rate normal; decreased breath sounds. ABDOMEN: Soft, nontender, liver spleen not palpable, no masses palpable. PSYCH: Alert and oriented x3; mood and affect anxiousl. MUSCULAR skeletal: Evidence of OA especially in the hands. Resting over the left hip incision NEUROLOGICAL: Cranial nerves grossly intact; no facial asymmetry, power and sensation grossly intact. LYMPHATICS: No lymph nodes palpable in the axilla and neck INVESTIGATIONS, reviewed in the clinical context: Labs from 12/24/2020: WBC 7.8 hemoglobin 13.4 platelets 249 potassium 4.9 creatinine 0.5 for Coronavirus [PCR) Not detected EKG tracing personally reviewed by me-normal sinus rhythm, nonspecific ST segment changes Assessment and plan: -Left total hip arthroplasty via anterior approach On aspirin for DVT prophylaxis per orthopedics. On [place] for pain control. -COPD in a previous smoker Asymptomatic. -GERD Tums when necessary. Pepcid 20 mg twice a day -Chronic insomnia idiopathic Melatonin 3 mg daily at bedtime -Chronic urinary stress incontinence May follow-up with urology as outpatient as needed -Patient has a decreased appetite for some time and has lost about 20 pounds in the last 1 year. This can be further worked up as an outpatient by patient's PCP Dr. Castillo. This was discussed with the patient. Cooperative sensation to be sent to Dr. Castillo. Outpatient GI consultation with GI. Home medications resumed. Aspirin for DVT prophylaxis. Add Pepcid 20 mg twice a day. Melatonin 3 mg daily at bedtime. Chest x-ray. Thank you Dr. Hilton Past Medical History Past Medical History: GERD/Reflux, Hypertension, Osteoarthritis (OA) Additional Past Medical History / Comment(s): states htn with previous hip surgery after fx., hemmorhoids, pain left hip-using walker. History of Any Multi-Drug Resistant Organisms: None Reported Past Surgical History: Hysterectomy, Orthopedic Surgery Additional Past Surgical History / Comment(s): right hip fx with surgery 10/2019., hx of surgery for endometriosis with tumors removed from uterus Past Anesthesia/Blood Transfusion Reactions: Previous Problems w/ Anesthesia, Postoperative Nausea & Vomiting (PONV) Past Psychological History: Anxiety, Depression Smoking Status: Former smoker Past Alcohol Use History: None Reported Additional Past Alcohol Use History / Comment(s): quit smoking October 2020, hx of 1ppd, started smoking age 12. Past Drug Use History: Marijuana Additional Drug Use History / Comment(s): smokes and uses gummies. - Past Family History Father Family Medical History: Congestive Heart Failure (CHF), Dementia, Osteoarthritis (OA) Mother Additional Family Medical History / Comment(s): Breast CA, skin CA Brother(s) Family Medical History: Cancer Additional Family Medical History / Comment(s): bone marrow cancer Medications and Allergies Home Medications Medication Instructions Recorded Confirmed Type Acetaminophen Tab [Tylenol] 650 mg PO Q6H PRN 12/25/20 01/01/21 History Calcium Carbonate [Tums] 500 mg PO DIRECTED PRN 12/25/20 01/01/21 History Allergies Allergy/AdvReac Type Severity Reaction Status Date / Time Penicillins Allergy Rash/Hives Verified 01/01/21 06:11 Physical Exam Vitals: Vital Signs Temp Pulse Pulse Resp BP Pulse Ox 01/01/21 14:00 98.6 F 63 16 159/72 93 L 01/01/21 12:03 73 16 105/51 97 01/01/21 11:45 66 16 90/54 97 01/01/21 11:32 67 16 119/57 97 01/01/21 11:16 78 16 118/60 97 01/01/21 11:02 75 16 119/61 97 01/01/21 10:45 75 16 138/65 97 01/01/21 10:33 76 16 115/56 97 01/01/21 10:17 77 16 132/63 95 01/01/21 10:00 76 16 121/69 92 L 01/01/21 09:45 75 16 144/67 92 L 01/01/21 09:30 69 14 149/72 92 L 01/01/21 09:15 58 L 16 162/75 94 L 01/01/21 09:01 70 16 176/79 100 01/01/21 08:47 65 16 180/84 100 01/01/21 08:29 97 F L 65 16 186/81 100 01/01/21 06:16 97.6 F 76 18 201/95 96 Intake and Output 01/01/21 01/01/21 01/01/21 06:59 14:59 22:59 Intake Total 451 0 Output Total 100 Balance 451 -100 Intake: IV 451 0 Output: Estimated Blood Loss 100 Other: Weight 49.7 kg 49.7 kg
[2021-01-01] MEDS: FAMOTIDINE 20 MG TAB PO SCH (19:42)
[2021-01-01] MEDS ORDERED: MELATONIN 3 MG TABLET PO SCH (21:00)
[2021-01-01] MEDS ORDERED: SENNOSIDES-DOCUSATE SODIUM 1 EACH TAB PO SCH (21:00)
[2021-01-02] MEDS: HYDROmorphone 0.5 MG/0.5 ML SYRINGE IVP PRN (01:34)
[2021-01-02] MEDS: SODIUM CHLORIDE 0.9% 1,000 ML IV SCH (02:06)
[2021-01-02] MEDS: LACTATED RINGERS 1,000 ML IV SCH (06:19)
[2021-01-02 07:22] VITALS: BP 145/71; PULSE 54; RESP 18; TEMP 98.6
[2021-01-02] MEDS: HYDROcodone/APAP 7.5-325MG 1 EACH TAB PO PRN (07:35)
[2021-01-02] MEDS: FAMOTIDINE 20 MG TAB PO SCH (07:35)
[2021-01-02] MEDS: ASPIRIN 325 MG TAB PO SCH (07:35)
--- NOTE | 2021-01-02 08:56 | XR ---
EXAMINATION TYPE: XR chest 2V DATE OF EXAM: 01/02/2021 COMPARISON: 10/27/2019 HISTORY: 65-year-old female smoker, weight loss, cough TECHNIQUE: AP and lateral views FINDINGS: The heart limits of normal in size. Aorta and pulmonary vasculature within normal limits. No consolid ation or pleural effusion. IMPRESSION: No acute process seen. If symptoms persist, consider contrast-enhanced CT for more detailed assessmen t of the lung parenchyma.
--- NOTE | 2021-01-02 10:22 | P.DS ---
Providers Expected date of discharge: 01/02/21 Attending physician: Goran Hilton Consults: 01/01/21 08:49 Consult Physician Routine Consulting Provider: Pineda Church Consult Reason/Comments: medical management Do you want consulting provider notified?: Yes Primary care physician: Hola Castillo - Discharge Diagnosis(es) (1) Primary osteoarthritis of left hip Current Visit: Yes Status: Acute (2) Status post total replacement of left hip Current Visit: Yes Status: Acute Hospital Course: This is a 65-year-old female with known history of degenerative arthritis of the left hip. The patient presents for evaluation. After discussion and considera tion patient elects to proceed with total left hip arthroplasty with direct anterior approach. The patient is seen preoperatively by her primary care physician and cleared for surgery. Patient is admitted to [facility] on 01/01/2021 for total hip arthroplasty with direct anterior approach. The procedures performed without complication or sequelae. The patient is doing well postoperatively. Labs and vital signs are stable on day of discharge. On day of discharge patient's hip incision is healing well. There is minimal erythema. There is no drainage noted at this time. There is minimal soft tissue swelling to the hip and thigh. Patient has full foot and ankle motion without difficulty or pain. Neurovascular status to the left lower extremity is intact. Patient is discharged to home in good condition. Please see med rec for accurate list of home medications. Patient Condition at Discharge: Good Plan - Discharge Summary Discharge Rx Participant: No New Discharge Prescriptions: No Action Acetaminophen Tab [Tylenol] 650 mg PO Q6H PRN PRN Reason: Pain Calcium Carbonate [Tums] 500 mg PO DIRECTED PRN PRN Reason: Heartburn Discharge Medication List Acetaminophen Tab [Tylenol] 650 mg PO Q6H PRN 12/25/20 [History] Calcium Carbonate [Tums] 500 mg PO DIRECTED PRN 12/25/20 [History] Follow up Appointment(s)/Referral(s): Kimber Cruz MD [STAFF PHYSICIAN] - 2 Weeks (Intermittent diarrhea) Hola Castillo MD [Primary Care Provider] - 1 Week Goran Hilton DO [Doctor of Osteopathic Medicine] - 01/17/21 2:30 pm (With Anitha) Patient Instructions/Handouts: Anterior Hip Replacement (DC) Activity/Diet/Wound Care/Special Instructions: Patient has a walker at home
[2021-01-02 11:24] LABS: Basophils # (A) 0.02 X 10*3/uL (0.00-0.10); Basophils % (A) 0.2 %; Eosinophils # (A) 0.02 X 10*3/uL (0.04-0.35); Eosinophils % (A) 0.2 %; HCT 32.1 % (37.2-46.3); Lymphocytes # (A) 2.05 X 10*3/uL (0.90-5.00); Lymphocytes % (A) 23.9 %; MCH 31.3 pg (27.0-32.0); MCHC 31.2 g/dL (32.0-37.0); MCV 100.6 fL (80.0-97.0); Mean Platelet Volume 9.8 fL (9.5-12.2); Monocytes # (A) 0.73 X 10*3/uL (0.20-1.00); Monocytes % (A) 8.5 %; Neutrophils # (A) 5.73 X 10*3/uL (1.80-7.70); Neutrophils % (A) 66.9 %; Platelet Count 211 X 10*3/uL (140-440); RBC 3.19 X 10*6/uL (4.10-5.20); RDW 12.6 % (11.5-14.5); WBC 8.58 X 10*3/uL (4.50-10.00)
--- NOTE | 2021-01-02 16:35 | P.PN ---
Progress Note - Text Progress Note Date: 01/02/21 - Chief Complaint Left hip surgery Consultation: This is a 65-year-old patient who follows with Dr. Castillo. Patient has undergone left total hip arthroplasty. Postprocedure some pain is present. No nausea vomiting. No chest pain. Patient has arthritis in multiple joints. Left hip pain has been progressive. Getting worse. Worse with activity better with rest. Has failed conservative management. Patient has arthritis in other joints. Does get reflux symptoms. Also urinary incontinence with coughing and sneezing. Has trouble sleeping for quite some time. Normally has about 2 bowel movements a day sometimes loose. Has been losing some weight. January 02: Pain better control. Did eat some breakfast. No nausea vomiting. Did work with therapy. Questions answered. Review of systems: Was done for constitutional, cardiovascular, GI, pulmonary. relevant finding as above Current medications reviewed and today's electronic records Past medical history to include: GERD, hypertension, osteoarthritis, hemorrhoids Social history: Does use marijuana sometime diabetes for sleeping and for pain. Patient smoking since the age of 12 up to 2 months ago about a pack a day. No alcohol. Family history: CHF, osteoarthritis, breast cancer, skin cancer, dementia Physical examination: VITAL SIGNS: 98.6, 54, 18, 145 with 71, 97% room air GENERAL: Reclining in bed, comfortable EYES: Pupils equal. Conjunctiva normal. NECK: JVD not raised; masses not palpable. HEART: First and second heart sounds are normal; no edema. LUNGS: Respiratory rate normal; decreased breath sounds. ABDOMEN: Soft, nontender, liver spleen not palpable, no masses palpable. PSYCH: Alert and oriented x3; mood and affect anxiousl. MUSCULAR skeletal: Evidence of OA especially in the hands. Resting over the left hip incision INVESTIGATIONS, reviewed in the clinical context: January 02: White count 8.5 hemoglobin 10 Chest x-ray: Unremarkable Labs from 12/24/2020: WBC 7.8 hemoglobin 13.4 platelets 249 potassium 4.9 creatinine 0.5 for Coronavirus [PCR) Not detected EKG tracing personally reviewed by me-normal sinus rhythm, nonspecific ST segment changes Assessment and plan: -Left total hip arthroplasty via anterior approach On aspirin for DVT prophylaxis per orthopedics. On [place] for pain control. -COPD in a previous smoker Asymptomatic. -GERD Tums when necessary. Pepcid 20 mg twice a day -Chronic insomnia idiopathic Melatonin 3 mg daily at bedtime -Chronic urinary stress incontinence May follow-up with urology as outpatient as needed -Acute postprocedure blood loss anemia Iron supplement -Patient has a decreased appetite for some time and has lost about 20 pounds in the last 1 year. This can be further worked up as an outpatient by patient's PCP Dr. Castillo. This was discussed with the patient. Cooperative sensation to be sent to Dr. Castillo. Outpatient GI consultation with GI. Care was discussed with the patient. Follow-up with PCP and Dr. Sweta Cruz. Thank you Dr. Hilton
== END 2021-01-02 13:22 | disposition home health service (06) ==
LOC: OR 05:32 → 4SSUR 11:59 → OR 01-02 13:22
PROVIDERS: ATTEND Orthopaedic Surgery
DX: M16.12 Unilateral primary osteoarthritis, left hip (principal); I10 Essential (primary) hypertension; R00.2 Palpitations; F32.9 Major depressive disorder, single episode, unspecified; Z97.3 Presence of spectacles and contact lenses; F51.04 Psychophysiologic insomnia; J44.9 Chronic obstructive pulmonary disease, unspecified; R45.0 Nervousness; Z20.818 Contact with and (suspected) exposure to other bacterial communicable diseases; F41.9 Anxiety disorder, unspecified; N39.3 Stress incontinence (female) (male); Z90.710 Acquired absence of both cervix and uterus; Z98.890 Other specified postprocedural states; Z82.49 Family history of ischemic heart disease and other diseases of the circulatory system; Z87.891 Personal history of nicotine dependence; K21.9 Gastro-esophageal reflux disease without esophagitis; Z80.3 Family history of malignant neoplasm of breast; Z80.8 Family history of malignant neoplasm of other organs or systems; Z81.8 Family history of other mental and behavioral disorders; Z82.61 Family history of arthritis; Z79.899 Other long term (current) drug therapy; Z88.0 Allergy status to penicillin; D50.0 Iron deficiency anemia secondary to blood loss (chronic)
CPT/HCPCS: 97161; 97165; 86891; 85025; 88300; 87635; 73501; 71046; 27130; C1776; J2250; J1644; J0690 ×2; J2405; J3010; J2704; J1170 ×2; 86850; 86900; 86901

== ENCOUNTER → 2021-05-20 | Outpatient (CLI) | payer MEDICARE ==
[2021-05-20 16:12] LABS: INR 0.9 (<1.2); Partial Thromboplastin Time 25.2 sec (22.0-30.0); Prothrombin Time 10.4 sec (9.0-12.0)
[2021-05-21 00:54] LABS: HGB 12.4 g/dL (12.0-15.0); MCH 29.5 pg (27.0-32.0); MCHC 31.8 g/dL (32.0-37.0); MCV 92.9 fL (80.0-97.0); Mean Platelet Volume 10.2 fL (9.5-12.2); NRBC Per 100 WBC 0 /100 WBCS (0.0-0.0); Platelet Count 271 X 10*3/uL (140-440); RDW 13.2 % (11.5-14.5); WBC 7.21 X 10*3/uL (4.50-10.00)
[2021-05-21 01:12] LABS: Albumin 4.1 g/dL (3.8-4.9); Albumin/Globulin Ratio 1.76 (1.60-3.17); Anion Gap 11.2 mmol/L (10.00-18.00); BUN/Creat Ratio 28.12 Ratio (12.00-20.00); Calcium 9.6 mg/dL (8.7-10.3); Carbon Dioxide 26.7 mmol/L (20.0-27.5); Globulin 2.3 g/dL (1.6-3.3); Non-African American GFR(CKD) 96.7 (60.0-200.0); Potassium 4.5 mmol/L (3.5-5.5); Total Bilirubin 0.2 mg/dL (0.30-1.20); Total Protein 6.5 g/dL (6.2-8.2)
[2021-05-21 02:30] LABS: Appearance,Urine Cloudy (Clear); Bilirubin,Urine Negative (Negative); Blood,Urine Negative (Negative); Color,Urine Yellow (Yellow); Ketones,Urine Negative (Negative); Leukocyte Esterase,Urine Moderate (Negative); Nitrite,Urine Negative (Negative); PH, Urine 6.5 (4.5-8.0); Protein,Urine Negative (Negative); Specific Gravity,Urine 1.024 (1.001-1.030); Urobilinogen,Urine 0.2 E.U./DL (0.0-1.0)
[2021-05-21 04:52] LABS: Bacteria,Urine Few /HPF (None Seen); RBC,Urine 0-2 /HPF (0-2,None Seen); WBC,Urine 10 /HPF (0-5)
== END | disposition home or self-care (01) ==
LOC: LABPAT 14:11
PROVIDERS: ATTEND Orthopaedic Surgery
DX: Z01.818 Encounter for other preprocedural examination (principal); M16.11 Unilateral primary osteoarthritis, right hip; R94.31 Abnormal electrocardiogram [ECG] [EKG]
CPT/HCPCS: 36415; 80053; 81001; 85027; 85610; 85730; 87070; 93005

== ENCOUNTER → 2024-02-08 | Outpatient (CLI) | payer MEDICARE ==
[2024-02-08 09:44] LABS: African American GFR (CKD) >90 (>60 ml/min/1.73 sqM); Blood Urea Nitrogen 10 mg/dL (7-17); Non-African American GFR(CKD) >90 (>60 ml/min/1.73 sqM)
--- NOTE | 2024-02-08 11:42 | CT ---
EXAMINATION TYPE: CT ChestAbdPelvis w con CT DLP: 453.10 mGycm, Automated exposure control for dose reduction was used. DATE OF EXAM: 02/08/2024 11:20 AM COMPARISON: Chest radiograph 01/02/2021 CLINICAL INDICATION:Female, 68 years old with history of C20 rectal ca; [facility], Recent colonoscopy found several polyps, diagnosed rectal ca. Technique: Multiple axial images of the chest, abdomen, and pelvis were obtained following the intrav enous administration of 100 mL Isovue-300. Oral contrast was administered. Two-dimensional coronal an d sagittal reconstructions were obtained. Findings: CHEST: LUNGS/ PLEURA: No pleural effusion, pneumothorax, focal consolidation. No suspicious pulmonary nodule or mass. Minimal dependent bibasilar subsegmental atelectasis. AIRWAY: Patent and unremarkable.. HEART: Mildly prominent in size. No pericardial effusion. Coronary artery calcifications. MEDIASTINUM: No evidence of adenopathy. VASCULATURE: No aortic aneurysm. Mild atherosclerotic calcification of the aorta and its branches. S mall aortic valvular and mitral annulus calcifications. MUSCULOSKELETAL: No acute osseous abnormalities. No aggressive osseous lesion. SOFT TISSUES/LYMPH NODES: Left anterior superficial soft tissue 2.0 cm lesion with fluid attenuation most consistent with a sebaceous cyst. LOWER NECK: Multinodular thyroid gland with enlarged right thyroid lobe with hypodense nodule measuri ng at least 2 cm. ABDOMEN: ABDOMEN LIVER: Unremarkable GALLBLADDER AND BILE DUCTS: Unremarkable. PANCREAS: Unremarkable. SPLEEN: Not enlarged. Subcentimeter hyperdense focus likely representing a hemangioma. Additional per ipheral subcentimeter hypodense focus which may represent a cyst. Probably benign. ADRENAL GLANDS: Left adrenal gland is unremarkable. Right adrenal gland 1.7 cm nodule with a Hounsfie ld unit of 72. KIDNEYS AND URETERS: No evidence of hydronephrosis or renal calculus. The kidneys enhance symmetrical ly. Subcentimeter left renal superior pole cyst. PELVIS BLADDER: Poorly visualized due to streak artifact from hip prosthesis. REPRODUCTIVE: Poorly visualized due to streak artifact from hip prosthesis. ABDOMEN & PELVIS STOMACH AND BOWEL: Tiny hiatal hernia. Enteric contrast reaches the descending colon. Moderate coloni c stool burden. Enhancing mass identified within the left aspect of the distal rectum measuring 3.0 x 2.0 x 3.2 cm in AP, TV, CC dimensions (series 3, image 104). Limited evaluation due to streak artifa ct from hip prosthesis. This abuts the region of the anal canal. No evidence of bowel obstruction. PERITONEUM: No evidence of pneumoperitoneum or free fluid. VASCULATURE: Moderate atherosclerotic calcifications are present throughout the abdominal aorta and i ts branches. No abdominal aortic aneurysm. MUSCULOSKELETAL: No acute osseous abnormalities. No aggressive osseous lesion. Mild multilevel degene rative disc disease. Postsurgical changes from bilateral total hip arthroplasty. LYMPH NODES: Mildly prominent paraesophageal lymph nodes measuring less than 1 cm short axis. Posteri or left perirectal 5 mm short axis lymph node (series 3, image 97). Multiple enlarged retroperitoneal periaortic lymph nodes identified with exam on the left measuring 1.5 cm short axis (series 3, image 65) exam on the right measuring 1.5 cm short axis (series 3, image 65). SOFT TISSUE/ABDOMINAL WALL: Unremarkable IMPRESSION: 1. Rectal enhancing 3.2 cm mass corresponding to reported rectal cancer. 2. Retroperitoneal lymphadenopathy most consistent with metastatic disease. Additional prominent par aesophageal and perirectal lymph nodes probably representing metastatic disease. 3. Indeterminate right adrenal gland 1.7 similar nodule which may represent metastatic disease versu s other etiologies. This can be further evaluated with CT abdomen with and without IV contrast (adren al protocol) as clinically indicated. 4. Multinodular thyroid gland with at least 2 cm hypodense nodule. Recommend further evaluation with thyroid ultrasound. [facility], , 02/08/2024 11:39 AM
== END | disposition home or self-care (01) ==
LOC: RADCTMAIN 09:02
PROVIDERS: ATTEND Internal Medicine
CPT/HCPCS: 36415; 71260; 74177; 82565; 84520

== ENCOUNTER → 2024-02-19 | Outpatient (CLI) | payer MEDICARE ==
--- NOTE | 2024-02-22 07:25 | PE ---
EXAMINATION TYPE: PET CT fusion skull to thigh DATE OF EXAM: 02/19/2024 CLINICAL INDICATION:Female, 68 years old with history of C18.4 COLON CANCER; TECHNIQUE: Following the intravenous administration of 11.03 mCi of F-18 FDG, whole body images are performed from the skull base to the midthigh. Images are reviewed on the computer in the coronal, axial, and sagittal planes. Reconstructed rotating images are created on independent workstation and reviewed on the computer. A non-contrast CT is performed in conjunction with the PET scan. Glucose level 109 mg/dL CT DLP: 206.03 mGycm, Automated exposure control for dose reduction was used. COMPARISON: CT 02/08/2024, PET/CT None, MRI: None FINDINGS: Mediastinal SUV mean is 1.7. Hepatic parenchyma SUV mean is 2.2. SKULL BASE AND NECK: No suspicious radiotracer activity. CHEST, MEDIASTINUM, AND HILAR REGION: Heterogenous enlarged right thyroid lobe with hypodense nodules. There is a focal region of radiotrac er uptake just posterior and inferior to the right thyroid gland with a maximum SUV of 3.4. ABDOMEN AND PELVIS: Retroperitoneal periaortic and pericaval lymphadenopathy redemonstrated with FDG activity. Example in cludes a right pericaval 2.2 cm lymph node (series 3, image 139). Demonstrates a maximum SUV of 5.6. FDG avid rectal mass with a maximum SUV of 18.9. Paraesophageal mildly enlarged lymph nodes measuring up to 1.0 cm with radiotracer uptake. Demonstrat es a maximum SUV of 7.1. Right adrenal gland 1.7 cm nodule redemonstrated with a Hounsfield unit of 17. Demonstrates a maximum SUV of 2.2 which is a background. MUSCULOSKELETAL STRUCTURES: Focal radiotracer activity identified within the C7, T1, T2, T3, and T4 vertebral bodies. With sugges valerio possible lucent lesions within the left aspect of the C7-T1 vertebral bodies. The C7 region that measures a maximal SUV of 9.4. The T1 region demonstrates a maximum SUV of 9.5. There is 3 foci of radiotracer uptake identified within the right femoral neck arthroplasty region wi thout definitive CT abnormality. This demonstrates a max SUV of 8.3. OTHER CT: Bilateral carotid bulb calcifications. Enlarged right heterogenous thyroid lobe was suggest ed hypodense nodules. Macrocalcifications within the thyroid gland. Atherosclerotic calcification of the aorta and its branches. Moderate coronary artery calcifications. Mild cardiomegaly. Aortic valvul ar calcifications. Postsurgical changes from bilateral total hip arthroplasty. Just left of midline s uperficial left anterior chest wall 1.8 cm lesion without FDG activity likely representing a sebaceou s cyst. Sigmoid diverticulosis. Posthysterectomy changes. IMPRESSION: 1. Redemonstration of rectal mass which demonstrates intense FDG activity consistent with known canc er. 2. Metastatic mildly FDG avid retroperitoneal and paraesophageal lymphadenopathy. 3. FDG avid focal activity identified within the C7-T4 vertebral bodies concerning for metastatic di sease. Additional foci of radiotracer uptake identified within the right femoral neck region at site of arthroplasty. May represent additional metastatic disease versus infectious/inflammatory process. Consider further evaluation with nuclear medicine bone scan. 4. Heterogenous enlarged right thyroid lobe with a single focus of mild FDG activity along the infer ior posterior aspect. May represent a metastatic lymph node versus thyroid nodule versus parathyroid nodule. Thyroid ultrasound is recommended. 5. Stable indeterminate right adrenal gland nodule which demonstrates radiotracer activity at backgr ound. Probable adenoma. Attention on follow-up exams. [facility], , 02/22/2024 7:22 AM
== END | disposition home or self-care (01) ==
LOC: RADPETMAIN 08:48
PROVIDERS: ATTEND Internal Medicine
DX: C18.4 Malignant neoplasm of transverse colon (principal); R93.7 Abnormal findings on diagnostic imaging of other parts of musculoskeletal system; Z85.038 Personal history of other malignant neoplasm of large intestine
CPT/HCPCS: 78815; A9552

== ENCOUNTER 2024-03-22 12:44 | Day surgery (SDC) | payer MEDICARE ==
[~2024-03-22 12:44] MED LIST changes: -ACETAMINOPHEN TAB 500 MG TAB PO PRN; -GABAPENTIN 300 MG CAP PO PRN; -MELOXICAM 7.5 MG TAB PO PRN; +MIDAZOLAM 2 MG/2 ML VIAL IV PRN; +Pre Op ABX Message 1 EACH MISC MISCELLANE ONE; -TRANEXAMIC ACID 1,000 MG in SODIUM CHLORIDE 0.9% 100 ML IVPB PRN
[2024-03-22] MEDS: IV FLUID CONTINUATION 1,000 ML IV ONE ×2 (13:26→15:20)
[2024-03-22] MEDS: LACTATED RINGERS 1,000 ML IV SCH (13:50)
[2024-03-22] MEDS: ONDANSETRON 4 MG/2 ML VIAL IVP ONE (13:51)
[2024-03-22] MEDS: DEXAMETHASONE SOD PHOSPHATE 4 MG/ML 1 ML VIAL IV ONE (13:51)
[2024-03-22] MEDS: fentaNYL (PF) 50 MCG/ML 2 ML AMP IVP PRN (13:52)
[2024-03-22] MEDS: ENALAPRILAT 1.25 MG/ML 1 ML VIAL IVP STA (14:11)
[2024-03-22] MEDS ORDERED: ceFAZolin 1 GM in DEXTROSE/WATER 1 50ML.BAG IVPB STA (14:32)
[2024-03-22] MEDS: LABETALOL SYRINGE 5 MG/ML (4 ML SYR) IVP STA (14:39)
[2024-03-22] MEDS: MAGNESIUM SULFATE-D5W PMX 1 GM in DEXTROSE/WATER 1 100ML.BAG IVPB SCH (14:42)
[2024-03-22] MEDS ORDERED: diphenhydrAMINE 50 MG/ML 1 ML VIAL ONE (14:49)
[2024-03-22] MEDS ORDERED: fentaNYL (PF) 50 MCG/ML 2 ML AMP ONE (14:49)
[2024-03-22] MEDS ORDERED: MIDAZOLAM 2 MG/2 ML VIAL ONE (14:49)
[2024-03-22] MEDS ORDERED: PROPOFOL 10 MG/ML 20 ML VIAL IV ONE (14:49)
[2024-03-22] MEDS ORDERED: hydrALAZINE HCL 20 MG/ML 1 ML VIAL ONE (14:49)
[2024-03-22] MEDS ORDERED: LIDOCAINE 1% INJ 10MG/ML (20 ML MDV) ONE (14:49)
[2024-03-22] MEDS: BUPIVACAINE (PF) 0.25% 30 ML VIAL SQ ONE (15:01)
--- NOTE | 2024-03-22 15:59 | FL ---
EXAMINATION TYPE: FL guided central line placemt DATE OF EXAM: 03/22/2024 3:55 PM COMPARISON: Pre Operative Images if available both CT/MRI or plain film CLINICAL INDICATION: Female, 68 years old with history of INSERTION PORT A CATH; TECHNIQUE: FL guided central line placemt, multiple fluoroscopic images provided for procedure. Total fluoroscopy time: 9.8 seconds Total submitted images to PACS: 1 DAP: 0.2313 mGym2 Gycm2 uGym2 cGycm2 or equivalent. FINDINGS: Fluoroscopic imaging for Port-A-Cath insertion no evidence for pneumothorax. Multilevel degeneration changes of the spine. IMPRESSION: 1. No evidence for intraoperative complication. 2. Please see the operative/procedural note for further details. [facility], Workstation: [facility], 03/22/2024 3:57 PM
[2024-03-22 16:08] VITALS: TEMP 99.5
--- NOTE | 2024-03-22 16:25 | XR ---
EXAMINATION TYPE: XR chest 1V portable DATE OF EXAM: 03/22/2024 4:21 PM COMPARISON: 01/02/2021 CLINICAL INDICATION: Female, 68 years old with history of Mediport Placement, TECHNIQUE: XR chest 1V portable view(s) obtained. FINDINGS: The heart size is normal. The pulmonary vasculature is normal. The lungs are clear. Port Catheter is present on the right with tip in the proximal superior vena cava region. No pneumoth orax is evident. IMPRESSION: 1. No pneumothorax post right-sided port placement. Tip is in the proximal superior vena cava region. [facility], , 03/22/2024 4:23 PM
[2024-03-22] MEDS: HYDROmorphone 0.5 MG/0.5 ML SYRINGE IVP PRN (16:28)
--- NOTE | 2024-03-22 16:39 | P.OP ---
Date of Procedure: 03/22/24 Preoperative Diagnosis: Colon cancer, stage IV Postoperative Diagnosis: Colon cancer, stage IV Procedure(s) Performed: Mediport placement with fluoroscopic guidance Anesthesia: PAULETTE Surgeon: Lexie Harden Pathology: none sent Condition: stable Disposition: same day Indications for Procedure: 68-year-old female presents for Mediport placement. She has recently been diagnosed with stage IV colon cancer. Plan is for induction of chemotherapy after discussion with her oncologist. Risks, benefits and alternatives were provided. All questions answered prior to attending the operating suite. Operative Findings: Appropriate flush and withdrawal from Mediport site Description of Procedure: Patient was brought to the operating suite and placed in supine position on the operating table. Sedation was provided anesthesia patient underwent endotrac heal intubation. The patient was then prepped and draped in regular sterile fashion. Introducer needle was placed and attempt was made for access to the right subclavian vein. Access was unable to be obtained. Secondary to this, decision was made to access the right IJ. This was done under ultrasound guidance. The right internal jugular vein was clearly visualized on ultrasound and introducer needle was placed and guidewire was placed. Guidewire placement was confirmed under ultrasound and fluoroscopy. At this point, incision was made at the anticipated port pocket site. Dissection was carried towards the prepectoralis fascia and it was carried inferiorly. Once the pocket was noted to be in of appropriate length, tunneler was used to place the catheter from the pocket to the guidewire insertion site. Guidewire insertion site was then dilated with a dilator sheath and catheter was placed. Catheter was noted to be on appropriate position under fluoroscopy. The catheter was then attached to the port and locked into place. Port was placed in the pocket and appropriate flush and withdrawal was noted with saline flush. The port was then sutured to the prepectoralis fascia using 2-0 Prolene suture. Appropriate flush and withdrawal was once again noted. Heparin lock was placed. At this point the incision site was closed with 4-0 Vicryl subcuticular suture. Sterile dressing was applied. The right neck incision was also closed with 4-0 Vicryl subcuticular suture. Sterile dressing was applied. The patient was awakened in the operating suite and taken to postanesthesia care unit in stable condition with pending chest x-ray.
[2024-03-22 16:47] VITALS: RESP 16
[2024-03-22 17:18] VITALS: BP 145/76; PULSE 93
== END 2024-03-22 17:31 | disposition home or self-care (01) ==
LOC: OR 12:44
PROVIDERS: ATTEND Surgery
DX: C18.8 Malignant neoplasm of overlapping sites of colon (principal); I10 Essential (primary) hypertension; E03.9 Hypothyroidism, unspecified; Z91.89 Other specified personal risk factors, not elsewhere classified; Z79.890 Hormone replacement therapy; Z87.891 Personal history of nicotine dependence; Z96.643 Presence of artificial hip joint, bilateral; Z88.0 Allergy status to penicillin; Z83.719 Family history of colon polyps, unspecified
CPT/HCPCS: 77001; 71045; 36561; J1100; J2405; J3010; J3475; J1642; J1171; J0665; J1920

== ENCOUNTER 2024-04-10 04:40 | Inpatient (IN) | payer MEDICARE ==
[2024-04-10] MEDS ORDERED: LIDOCAINE 1% INJ 10MG/ML (10 ML MDV) SQ STA (04:50)
[2024-04-10] MEDS: SODIUM CHLORIDE 0.9% 1,000 ML IV ONE ×4 (05:33→19:57)
[2024-04-10 05:40] LABS: HCT 26.9 % (34.0-46.0); MCH 31.4 pg (25.0-35.0); MCHC 35.2 g/dL (31.0-37.0); MCV 89.3 fL (80.0-100.0); Mean Platelet Volume 7.5; Platelet Count 335 k/uL (150-450); RBC 3.01 m/uL (3.80-5.40); RDW 13.3 % (11.5-15.5); WBC 7.5 k/uL (3.8-10.6)
[2024-04-10 05:46] LABS: AST 23 U/L (14-36); African American GFR (CKD) >90 (>60 ml/min/1.73 sqM); Albumin 3.4 g/dL (3.5-5.0); Alkaline Phosphatase 159 U/L (38-126); Anion Gap 10 mmol/L; Blood Urea Nitrogen 14 mg/dL (7-17); Calcium 9.1 mg/dL (8.4-10.2); Carbon Dioxide 33 mmol/L (22-30); Chloride 87 mmol/L (98-107); Glucose 216 mg/dL (74-99); Non-African American GFR(CKD) >90 (>60 ml/min/1.73 sqM); Sodium 130 mmol/L (137-145)
--- NOTE | 2024-04-10 05:51 | ED ---
Abdominal Pain HPI - General Chief Complaint: Abdominal Pain Stated Complaint: abd pain Time Seen by Provider: 04/10/24 04:47 Source: patient, EMS Mode of arrival: EMS Limitations: no limitations - History of Present Illness Initial Comments: Patient is a 68-year-old woman with history of metastatic rectal cancer who presents to have evaluation of lower abdominal pain. The patient is receiving chemotherapy and had first treatment on March 29. She states that she has not really felt well since that time. She has had a few days of lower abdominal pain that became severe over the course of the past night. She has had nausea. The patient states she has not really had a bowel movement for many days now. She has not noted fever or chills. MD Complaint: abdominal pain -: days(s) Location: LLQ, RLQ, suprapubic Radiation: none Migration to: no migration Severity: severe Quality: aching Consistency: constant Improves With: nothing Worsens With: nothing Associated Symptoms: nausea, constipation - Related Data Home Medications Medication Instructions Recorded Confirmed Acetaminophen [Tylenol Arthritis] 650 mg PO Q4H PRN 03/18/24 04/10/24 Allergies Allergy/AdvReac Type Severity Reaction Status Date / Time Penicillins Allergy Rash/Hives Verified 04/10/24 08:49 Review of Systems ROS Statement: Those systems with pertinent positive or pertinent negative responses have been documented in the HPI. ROS Other: All systems not noted in ROS Statement are negative. Constitutional: Reports: weakness. Denies: fever, chills Respiratory: Denies: cough, dyspnea Cardiovascular: Denies: chest pain, palpitations, edema Gastrointestinal: Reports: abdominal pain, nausea, constipation. Denies: vomiting, diarrhea, hematemesis, melena, hematochezia Genitourinary: Denies: dysuria, frequency, hematuria Musculoskeletal: Denies: back pain Skin: Denies: rash Neurological: Denies: headache, weakness, numbness Past Medical History Past Medical History: Cancer, Hypertension, Osteoarthritis (OA), Thyroid Disorder Additional Past Medical History / Comment(s): only took BP med when broke hip & took for short time only, hx. palpitations. Hemorrhoids. Pt. stated she quit sm oing in october 2020. colon cancer, kidney stones, History of Any Multi-Drug Resistant Organisms: None Reported Past Surgical History: Hysterectomy, Joint Replacement Additional Past Surgical History / Comment(s): hermann hip replacements, to rt hip orif, colonoscopy Past Anesthesia/Blood Transfusion Reactions: Postoperative Nausea & Vomiting (PONV) Additional Past Anesthesia/Blood Transfusion Reaction / Comment(s): severe ponv, after colonscopy bp shot up with severe vomitting. no blood tx hx Past Psychological History: Anxiety Smoking Status: Former smoker Past Alcohol Use History: None Reported Past Drug Use History: None Reported - Past Family History Father Family Medical History: Congestive Heart Failure (CHF), Dementia, Osteoarthritis (OA) Mother Additional Family Medical History / Comment(s): Breast CA, skin CA Brother(s) Family Medical History: Cancer Additional Family Medical History / Comment(s): bone marrow cancer General Exam Limitations: no limitations General appearance: alert, in no apparent distress Head exam: Present: atraumatic, normocephalic Eye exam: Present: normal appearance. Absent: scleral icterus, conjunctival injection ENT exam: Present: mucous membranes dry Neck exam: Present: normal inspection Respiratory exam: Present: normal lung sounds bilaterally. Absent: respiratory distress, wheezes, rales, rhonchi, stridor, accessory muscle use Cardiovascular Exam: Present: normal rhythm, tachycardia, systolic murmur. Absent: diastolic murmur, rubs, gallop GI/Abdominal exam: Present: tenderness, guarding, rebound, diminished bowel sounds. Absent: mass, pulsatile mass, hernia Extremities exam: Present: normal inspection, normal capillary refill. Absent: pedal edema, calf tenderness Back exam: Present: normal inspection Neurological exam: Present: alert Skin exam: Present: warm, dry, intact, normal color. Absent: rash Course Vital Signs 04/10/24 04/10/24 04/10/24 04:41 05:31 06:40 Temperature 98.4 F Pulse Rate 122 H 97 89 Pulse Rate [ Left] Respiratory 16 16 16 Rate Blood Pressure 170/108 160/94 203/107 Blood Pressure [Left Arm] O2 Sat by Pulse 97 95 91 L Oximetry 04/10/24 04/10/24 04/10/24 09:00 11:10 11:19 Temperature 98.8 F Pulse Rate 128 H 120 H Pulse Rate [ 139 H Left] Respiratory 17 18 17 Rate Blood Pressure 222/149 167/107 Blood Pressure 138/97 [Left Arm] O2 Sat by Pulse 94 L 95 96 Oximetry Medical Decision Making - Medical Decision Making Patient is a 68-year-old woman with lower abdominal pain and with exam that is concerning for peritoneal signs. The patient has labs, fluids, antibiotics ordered and is sent for CT scan. I interpreted the CT scan as showing moderately large pneumoperitoneum. Discussed the findings with the patient and discussed at this point whether she is interested in comfort care versus surgical consultation and the patient request to have surgery consultation. I paged surgery to discuss the findings and Dr. Mares see the patient. following that I also did receive a call from radiology confirming that the patient does have pneumoperitoneum, suspected to be perforation possibly related to diverti culitis. This is subsequently discussed with internal medicine for possible medical consultation versus admission. Was pt. sent in by a medical professional or institution (, PA, DEBONE SUPERVISOR, urgent care, hospital, or halfway...) When possible be specific @ -[No] Did you speak to anyone other than the patient for history (EMS, parent, family, police, friend...)? What history was obtained from this source @ -[No] Did you review nursing and triage notes (agree or disagree)? Why? @ -[I reviewed and agree with nursing and triage notes] Were old charts reviewed (outside hosp., previous admission, EMS record, old EKG, old radiological studies, urgent care reports/EKG's, halfway records)? Report findings @ -[No old charts were reviewed] Differential Diagnosis (chest pain, altered mental status, abdominal pain women, abdominal pain men, vaginal bleeding, weakness, fever, dyspnea, syncope, headache, dizziness, GI bleed, back pain, seizure, CVA, palpatations, mental health, musculoskeletal)? @ -[Differential Abdominal Pain Women: Appendicitis, Cholecystitis, diverticulosis, ischemic bowel, pancreatitis, hepatitis, UTI, gastroenteritis, AAA, incarcerated hernia, bowel obstruction, constipation, inflammatory bowel, hepatitis, peptic ulcer disease, splenic infarction, perforated viscus, vulvitis, ovarian torsion, PID, kidney stone, placenta abruption, this is not meant to be an all-inclusive list EKG interpreted by me (3pts min.). @ -[As above] X-rays interpreted by me (1pt min.). @ -[None done] CT interpreted by me (1pt min.). @ -[I interpreted as above U/S interpreted by me (1pt. min.). @ -[None done] What testing was considered but not performed or refused? (CT, X-rays, U/S, labs)? Why? @ -[None] What meds were considered but not given or refused? Why? @ -[None] Did you discuss the management of the patient with other professionals (professionals i.e. , PA, DEBONE SUPERVISOR, lab, RT, psych nurse, social contact worker, cutter gas, teacher, chief compliance officer, caser in)? Give summary @ -[Case discussed with the surgeon on-call as well as the medical team, treatment recommendations incorporated Was smoking cessation discussed for >3mins.? @ -[No] Was critical care preformed (if so, how long)? @ -[Yes, 35 minutes Were there social determinants of health that impacted care today? How? (Homelessness, low income, unemployed, alcoholism, drug addiction, transportation, low edu. Level, literacy, decrease access to med. care, penitentiary, rehab)? @ -[No] Was there de-escalation of care discussed even if they declined (Discuss DNR or withdrawal of care, Hospice)? DNR status @ -[Yes, discussed comfort care versus having surgical consultation and further treatment What co-morbidities impacted this encounter? (DM, HTN, Smoking, COPD, CAD, Cancer, CVA, ARF, Chemo, Hep., AIDS, mental health diagnosis, sleep apnea, morbid obesity)? @ -[Patient has history of current cancer treatment Was patient admitted / discharged? Hospital course, mention meds given and route, prescriptions, significant lab abnormalities, going to OR and other pertinent info. @ -[See above Undiagnosed new problem with uncertain prognosis? @ -[No] Drug Therapy requiring intensive monitoring for toxicity (Heparin, Nitro, Insulin, Cardizem)? @ -[No] Were any procedures done? @ -[No] Diagnosis/symptom? @ -[Acute abdominal pain Acute pneumoperitoneum due to suspected bowel perforation Lactic acidosis Acute hypokalemia Acute, or Chronic, or Acute on Chronic? @ -[Acute Uncomplicated (without systemic symptoms) or Complicated (systemic symptoms)? @ -[Complicated Side effects of treatment? @ -[No] Exacerbation, Progression, or Severe Exacerbation? @ -[No] Poses a threat to life or bodily function? How? (Chest pain, USA, MS, pneumonia, PE, COPD, DKA, ARF, appy, cholecystitis, CVA, Diverticulitis, Homicidal, Suicidal, threat to staff... and all critical care pts) @ -[Yes, high risk of worsening condition, sepsis, All treatments are based on ideal body weight as in ED triage - Lab Data Result diagrams: 04/24/24 05:51 04/24/24 05:51 Lab Results 04/10/24 04/10/24 04/10/24 Range/Units 04:57 04:57 04:57 WBC 7.5 (3.8-10.6) k/uL RBC 3.01 L (3.80-5.40) m/uL Hgb 9.5 L D (11.4-16.0) gm/dL Hct 26.9 L (34.0-46.0) % MCV 89.3 (80.0-100.0) fL MCH 31.4 (25.0-35.0) pg MCHC 35.2 (31.0-37.0) g/dL RDW 13.3 (11.5-15.5) % Plt Count 335 (150-450) k/uL MPV 7.5 Neutrophils % (Manual) 62 % Band Neuts % (Manual) 29 % Lymphocytes % (Manual) 5 % Monocytes % (Manual) 6 % Neutrophils # (Manual) 6.80 (1.3-7.7) k/uL Lymphocytes # (Manual) 0.38 L (1.0-4.8) k/uL Monocytes # (Manual) 0.45 (0-1.0) k/uL Nucleated RBCs 0 (0-0) /100 WBC Manual Slide Review Performed RBC Morphology Normal Sodium 130 L (137-145) mmol/L Potassium 3.0 L (3.5-5.1) mmol/L Chloride 87 L (98-107) mmol/L Carbon Dioxide 33 H (22-30) mmol/L Anion Gap 10 mmol/L BUN 14 (7-17) mg/dL Creatinine 0.53 (0.52-1.04) mg/dL Est GFR (CKD-EPI)AfAm >90 (>60 ml/min/1.73 sqM) Est GFR (CKD-EPI)NonAf >90 (>60 ml/min/1.73 sqM) Glucose 216 H (74-99) mg/dL Lactic Ac Sepsis Rflx Plasma Lactic Acid Dustin 4.5 H* (0.7-2.0) mmol/L Calcium 9.1 (8.4-10.2) mg/dL Total Bilirubin 1.0 (0.2-1.3) mg/dL AST 23 (14-36) U/L ALT 18 (4-34) U/L Alkaline Phosphatase 159 H (38-126) U/L C-Reactive Protein 6.0 H (<1.0) mg/dL Total Protein 6.0 L (6.3-8.2) g/dL Albumin 3.4 L (3.5-5.0) g/dL 04/10/24 Range/Units 06:27 WBC (3.8-10.6) k/uL RBC (3.80-5.40) m/uL Hgb (11.4-16.0) gm/dL Hct (34.0-46.0) % MCV (80.0-100.0) fL MCH (25.0-35.0) pg MCHC (31.0-37.0) g/dL RDW (11.5-15.5) % Plt Count (150-450) k/uL MPV Neutrophils % (Manual) % Band Neuts % (Manual) % Lymphocytes % (Manual) % Monocytes % (Manual) % Neutrophils # (Manual) (1.3-7.7) k/uL Lymphocytes # (Manual) (1.0-4.8) k/uL Monocytes # (Manual) (0-1.0) k/uL Nucleated RBCs (0-0) /100 WBC Manual Slide Review RBC Morphology Sodium (137-145) mmol/L Potassium (3.5-5.1) mmol/L Chloride (98-107) mmol/L Carbon Dioxide (22-30) mmol/L Anion Gap mmol/L BUN (7-17) mg/dL Creatinine (0.52-1.04) mg/dL Est GFR (CKD-EPI)AfAm (>60 ml/min/1.73 sqM) Est GFR (CKD-EPI)NonAf (>60 ml/min/1.73 sqM) Glucose (74-99) mg/dL Lactic Ac Sepsis Rflx Y Plasma Lactic Acid Dustin (0.7-2.0) mmol/L Calcium (8.4-10.2) mg/dL Total Bilirubin (0.2-1.3) mg/dL AST (14-36) U/L ALT (4-34) U/L Alkaline Phosphatase (38-126) U/L C-Reactive Protein (<1.0) mg/dL Total Protein (6.3-8.2) g/dL Albumin (3.5-5.0) g/dL - EKG Data -: EKG Interpreted by Me EKG shows normal: sinus rhythm (With occasional PVC.), axis (Normal), intervals (Normal), QRS complexes (Old anteroseptal infarct.) Rate: tachycardia (Rate 116 bpm) Disposition Clinical Impression: Sepsis, Pneumoperitoneum, Bowel perforation, Lactic acidosis, Hypokalemia Disposition: ADMITTED IP TO THIS [facility] Condition: Critical Is patient prescribed a controlled substance at d/c from ED?: No
[2024-04-10 05:55] LABS: HGB 9.5 gm/dL (11.4-16.0)
[2024-04-10] MEDS: HYDROmorphone 0.5 MG/0.5 ML SYRINGE IVP STA (05:57)
[2024-04-10 06:06] LABS: ALT 18 U/L (4-34)
[2024-04-10] MEDS: HYDROmorphone 1 MG/ML 1 ML SYRINGE IVP STA ×2 (06:18→08:17)
[2024-04-10] MEDS: metroNIDAZOLE-NS PMX 500 MG in SALINE 1 100ML.BAG IVPB STA (06:23)
[2024-04-10] MEDS: LEVOFLOXACIN 750MG-D5W PMX 750 MG in DEXTROSE/WATER 1 150ML.BAG IVPB STA (06:25)
--- NOTE | 2024-04-10 06:28 | CT ---
EXAM: CT Abdomen and Pelvis Without Intravenous Contrast CLINICAL HISTORY: with c/o lower abdominal pain, n/v and bloody/black tarry stool. Pt states she has colon cancer. Unable to raise arms due to weakness TECHNIQUE: Axial computed tomography images of the abdomen and pelvis without intravenous contrast. CTDI is 6.9 mGy and DLP is 403.8 mGy-cm. This CT exam was performed using one or more of the following dose reduction techniques: automated exposure control, adjustment of the mA and/or kV according to patient size, and/or use of iterative reconstruction technique. Coronal and sagittal reformatted images were created and reviewed. 455 images COMPARISON: No relevant prior studies available. FINDINGS: Lung bases: Unremarkable. No mass. No consolidation. ABDOMEN: Liver: Unremarkable. Gallbladder and bile ducts: Unremarkable. No calcified stones. No ductal dilation. Pancreas: Unremarkable. No ductal dilation. Spleen: Unremarkable. No splenomegaly. Adrenals: Unremarkable. No mass. Kidneys and ureters: Punctate nonobstructing bilateral renal stones measuring up to 2 mm. Stomach and bowel: Mild circumferential wall thickening of short segment of ascending colon and proximal sigmoid colon in association with diverticula suggests diverticulitis versus colitis. No obstruction. PELVIS: Appendix: No findings to suggest acute appendicitis. Bladder: Unremarkable. No stones. Reproductive: Unremarkable as visualized. ABDOMEN and PELVIS: Intraperitoneal space: Large pneumoperitoneum. Small ascites. Bones/joints: Osteopenia. Moderate degenerative changes. Bilateral total hip replacement prostheses because of her large amount of streak artifact which decrease the sensitivity on associated images. The pelvis is poorly evaluated due to streak artifact from bilateral hip replacement prostheses. Moderate upper lumbar scoliosis convexed to the left. Soft tissues: Unremarkable. Vasculature: Moderate-large amount of atherosclerotic calcifications. Lymph nodes: Enlarged periaortic lymph nodes. The largest measures about 2.1 cm long axis best seen on series 201 image 80. IMPRESSION: 1. Large pneumoperitoneum. 2. Mild circumferential wall thickening of short segment of ascending colon and proximal sigmoid colon in association with diverticula suggests diverticulitis versus colitis. 3. Small ascites. 4. Periaortic lymphadenopathy, nonspecific. <MYCVCSECTION> Communications: 04/10/24 06:44 Call Doctor Regarding Pneumoperitoneum, new or unexpected, called Dr. Lara on 04/10 06:43 (-05:00)
[2024-04-10 06:35] LABS: Band Neutrophils % 29 %; Lymphocytes # (M) 0.38 k/uL (1.0-4.8); Monocytes # (M) 0.45 k/uL (0-1.0); Neutrophils % (M) 62 %; Nucleated Red Blood Cells 0 /100 WBC (0-0); RBC Morphology Normal; Total Cells Counted 200
[2024-04-10] MEDS: LACTATED RINGERS 1,000 ML BAG IV STA (06:59)
[2024-04-10] MEDS ORDERED: NALOXONE 0.4 MG/ML 1 ML VIAL IV PRN ×2 (08:12→16:41)
[2024-04-10] MEDS: HYDROmorphone 1 MG/ML 1 ML SYRINGE IVP PRN (09:31)
[2024-04-10] MEDS: ONDANSETRON 4 MG/2 ML VIAL IVP PRN (09:33)
[2024-04-10] MEDS: PANTOPRAZOLE 40 MG/10 ML VIAL IV SCH (09:37)
[2024-04-10] MEDS: SODIUM CHLORIDE 0.9% 1,000 ML IV SCH (09:38)
[2024-04-10] MEDS: LACTATED RINGERS 1,000 ML IV SCH (09:43)
[2024-04-10] MEDS: DEXAMETHASONE SOD PHOSPHATE 4 MG/ML 1 ML VIAL IV ONE (09:44)
--- NOTE | 2024-04-10 10:39 | P.CON ---
Consult Note - . Consult date: 04/10/24 Assessment/Plan:: Patient is a 68-year-old woman with history of metastatic rectal cancer who presents for evaluation of lower abdominal pain. The patient is receiving chemotherapy and had first treatment on March 29. She states that she has not really felt well since that time. She has had a few days of lower abdominal pain that became severe over the course of the past night. She has had nausea. The patient states she has not really had a bowel movement for many days now. She has not noted fever or chills. She had a CT-AP which showed pneumoperitoneum and possible perforation of her ascending colon. Review of Systems ROS Statement: Those systems with pertinent positive or pertinent negative responses have been documented in the HPI. ROS Other: All systems not noted in ROS Statement are negative. Constitutional: Reports: weakness. Denies: fever, chills Respiratory: Denies: cough, dyspnea Cardiovascular: Denies: chest pain, palpitations, edema Gastrointestinal: Reports: abdominal pain, nausea, constipation. Denies: vomiting, diarrhea, hematemesis, melena, hematochezia Genitourinary: Denies: dysuria, frequency, hematuria Musculoskeletal: Denies: back pain Skin: Denies: rash Neurological: Denies: headache, weakness, numbness Past Medical History Past Medical History: Cancer, Hypertension, Osteoarthritis (OA), Thyroid Disorder Additional Past Medical History / Comment(s): only took BP med when broke hip & took for short time only, hx. palpitations. Hemorrhoids. Pt. stated she quit smoing in october 2020. colon cancer, kidney stones, History of Any Multi-Drug Resistant Organisms: None Reported Past Surgical History: Hysterectomy, Joint Replacement Additional Past Surgical History / Comment(s): hermann hip replacements, to rt hip orif, colonoscopy Past Anesthesia/Blood Transfusion Reactions: Postoperative Nausea & Vomiting (PONV) Additional Past Anesthesia/Blood Transfusion Reaction / Comment(s): severe ponv, after colonscopy bp shot up with severe vomitting. no blood tx hx Past Psychological History: Anxiety Smoking Status: Former smoker Past Alcohol Use History: None Reported Past Drug Use History: None Reported - Past Family History Father Family Medical History: Congestive Heart Failure (CHF), Dementia, Osteoarthritis (OA) Mother Additional Family Medical History / Comment(s): Breast CA, skin CA Brother(s) Family Medical History: Cancer Additional Family Medical History / Comment(s): bone marrow cancer General Exam Limitations: no limitations General appearance: alert, in no apparent distress Head exam: Present: atraumatic, normocephalic Eye exam: Present: normal appearance. Absent: scleral icterus, conjunctival injection ENT exam: Present: mucous membranes dry Neck exam: Present: normal inspection Respiratory exam: Present: normal lung sounds bilaterally. Absent: respiratory distress, wheezes, rales, rhonchi, stridor, accessory muscle use Cardiovascular Exam: Present: normal rhythm, tachycardia, systolic murmur. Absent: diastolic murmur, rubs, gallop GI/Abdominal exam: Present: tenderness, guarding, rebound, diminished bowel sounds. Absent: mass, pulsatile mass, hernia Extremities exam: Present: normal inspection, normal capillary refill. Absent: pedal edema, calf tenderness Back exam: Present: normal inspection Neurological exam: Present: alert Skin exam: Present: warm, dry, intact, normal color. Absent: rash 68 year old female with rectal cancer with pneumoperitoneum -OR for exploratory laparotomy -Further recs to follow surgery Jhonathan Mares DO [facility] [phone]
[2024-04-10] MEDS: IV FLUID CONTINUATION 1,000 ML IV ONE (11:10)
[2024-04-10] MEDS ORDERED: LIDOCAINE 1% INJ 10MG/ML (20 ML MDV) ONE (11:55)
[2024-04-10] MEDS ORDERED: PHENYLEPHRINE 10 MG/ML VIAL ONE (11:55)
[2024-04-10] MEDS ORDERED: MIDAZOLAM 2 MG/2 ML VIAL ONE (11:55)
[2024-04-10] MEDS ORDERED: ePHEDrine 50 MG/ML 1 ML VIAL ONE (11:55)
[2024-04-10] MEDS ORDERED: PROPOFOL 10 MG/ML 20 ML VIAL IV ONE (11:55)
[2024-04-10] MEDS ORDERED: SUCCINYLCHOLINE CHLORIDE 200 MG/10 ML VIAL IV ONE (11:55)
[2024-04-10] MEDS ORDERED: fentaNYL (PF) 50 MCG/ML 2 ML AMP ONE (11:55)
[2024-04-10] MEDS ORDERED: ROCURONIUM 10 MG/ML (5 ML VIAL) IV ONE (11:55)
[2024-04-10] MEDS: SODIUM CHLORIDE 0.9% 100 ML with ceFAZolin 1,000 MG IV ONE (12:20)
[2024-04-10] MEDS: LACTATED RINGERS 1,000 ML IV ONE (13:16)
--- NOTE | 2024-04-10 13:20 | P.OP ---
Date of Procedure: 04/10/24 Preoperative Diagnosis: Pneumoperitoneum Postoperative Diagnosis: Perforated Diverticulitis of Sigmoid Colon Procedure(s) Performed: 1. Exploratory Laparotomy 2. Sigmoid Colon Resection with End Colostomy Anesthesia: PAULETTE Surgeon: Jhonathan Mares Pathology: other (Sigmoid Colon) Condition: critical Disposition: ICU Description of Procedure: The patient was brought to the operating suite and placed in supine position. After anesthesia was given, the patient was intubated. The patient was prepped and draped in usual sterile fashion. A timeout was performed. A midline incision was made with a #10 blade. Bovie electrocautery was used to dissection down to the fascia and enter the peritoneal cavity. Upon entering the peritoneal cavity there was free fluid and stool appreciated. The abdomen was thoroughly irrigated. It was immediately apparent there was a perforation at the mid sigmoid colon. A mesenteric window was made proximal and distal to this perforation. An Endo RAINE 60 mm purple staple load was used to transect the colon proximally and distally to the perforation. A ligasure was used to take down the mesentery and the specimen was passed off. The proximal colon was then brought out to through a defect made to the left of midline for the colostomy. The abdomen was again irrigated. The midline was closed with two #0 PDS sutures. Skin ryan was used to approximate the skin. The colostomy was then matured with #2-0 vicryl sutures. Sterile dressing and a colostomy bag was applied. The patient tolerated the procedure and was sent to the ICU in critical condition.
--- NOTE | 2024-04-10 13:35 | P.ANPRN ---
Procedure Note - Anesthesia - Invasive Line Right Central Line Time Out Performed: Yes (1316) Date of Procedure: 04/10/24 Time of Procedure: 13:18 Location of Patient: OR Preparation: Sterile Prep, Sterile Dressing Central Line Location: Internal Jugular (right tlc) Ultrasound Used: Yes Purpose - Visualization and Identification of Vasculature: Yes Needle Guage: 18g Image Stored and Saved: Yes Narrative: Invasive line placement per sterile protocol utilized. Anesthesia note Procedure: Right internal jugular central venous catheter insertion: Right IJ triple-lumen catheter Sterile protocol followed. Right neck prepped. Ultrasound used. Lidocaine 1% used. Using ultrasound local anesthetic was instilled site over right Internal Jugular vein. Angiocath was used to gain access via ultrasound. Once free flow non-pulsatile blood flow was confirmed, 12 inch extension tubing was then placed on Angiocath. Once central venous pressure was confirmed, J-wire was then placed through Angiocath. Angiocath was then withdrawn. Local was instilled at J-wire site. Small skin janet was then made with provided sterile scalpel. Right IJ triple-lumen catheter 9 Trin[place] was then inserted over the wire while maintaining control of wire at all times. Uneventful insertion with dilation. Free flow nonpulsatile blood flow through catheter. Hooked up to IV tubing. Secured with suture. Dressings applied. Drapes Removed. Attempts x1.
[2024-04-10 13:41] LABS: Glucose,Whole Blood 125 mg/dL (70-110)
[2024-04-10] MEDS: metroNIDAZOLE-NS PMX 500 MG in SALINE 1 100ML.BAG IVPB SCH (14:04)
[2024-04-10 14:09] LABS: Basophils % (A) 1 %; Eosinophils % (A) 0 %; HCT 39.8 % (34.0-46.0); Lymphocytes # (A) 0.3 k/uL (1.0-4.8); Lymphocytes % (A) 21 %; MCH 31.1 pg (25.0-35.0); MCHC 34.5 g/dL (31.0-37.0); MCV 90.1 fL (80.0-100.0); Mean Platelet Volume 7.2; Monocytes # (A) 0.1 k/uL (0-1.0); Monocytes % (A) 6 %; Neutrophils % (A) 71 %; Platelet Count 168 k/uL (150-450); RBC 4.42 m/uL (3.80-5.40); RDW 13.3 % (11.5-15.5)
[2024-04-10 14:18] LABS: African American GFR (CKD) >90 (>60 ml/min/1.73 sqM); Anion Gap 7 mmol/L; Blood Urea Nitrogen 15 mg/dL (7-17); Carbon Dioxide 27 mmol/L (22-30); Chloride 97 mmol/L (98-107); Glucose 136 mg/dL (74-99); Magnesium 1.6 mg/dL (1.6-2.3); Non-African American GFR(CKD) >90 (>60 ml/min/1.73 sqM); Phosphorus 3.2 mg/dL (2.5-4.5); Sodium 131 mmol/L (137-145)
[2024-04-10 14:19] LABS: ABG Base Excess 2.6 mmol/L; ABG HCO3 29 mmol/L (21-25); ABG Oxygen Saturation >100.0 % (94-97); ABG PCO2 53 mmHg (35-45); ABG PH 7.35 (7.35-7.45); ABG PO2 392 mmHg (83-108); ABG TCO2 31 mmol/L (19-24)
[2024-04-10 14:21] LABS: Allen Test Performed? no
--- NOTE | 2024-04-10 14:22 | XR ---
EXAMINATION TYPE: XR chest 1V portable DATE OF EXAM: 04/10/2024 1:58 PM COMPARISON: Chest radiographs from 03/22/2024 CLINICAL INDICATION: Female, 68 years old with history of Tube placement; [facility] TECHNIQUE: XR chest 1V portable Frontal view of the chest. FINDINGS: Lungs/Pleura: There is no evidence of pleural effusion, focal consolidation, or pneumothorax. Pulmonary vascularity: Unremarkable. Heart/mediastinum: Cardiomediastinal silhouette is unremarkable. Musculoskeletal: No acute osseous pathology. Other findings: None Lines/Tubes: Endotracheal tube with distal tip 3.1cm above the cy. Nasogastric tube with its distal tip and side-port projecting under the diaphragm. [id number] projecting over the right hemithorax with distal tip projecting over the superior vena cava. IMPRESSION: 1. No acute cardiopulmonary disease process. 2. COPD changes. [facility], , 04/10/2024 2:19 PM
[2024-04-10 14:25] LABS: HGB 13.8 gm/dL (11.4-16.0); WBC 1.4 k/uL (3.8-10.6)
[2024-04-10 14:43] LABS: RBC Morphology Normal
[2024-04-10] MEDS ORDERED: Potassium Replacement Protocol 1 EACH MISC MISCELLANE PRN (15:04)
[2024-04-10] MEDS ORDERED: Magnesium Replacement Protocol 1 EACH MISC MISCELLANE PRN (15:05)
[2024-04-10] MEDS: MAGNESIUM SULFATE-D5W PMX 1 GM in DEXTROSE/WATER 1 100ML.BAG IVPB SCH (15:19)
[2024-04-10] MEDS: POTASSIUM CHLORIDE 20 MEQ in WATER FOR INJECTION 1 100ML.BAG IVPB SCH (15:19)
--- NOTE | 2024-04-10 15:51 | P.HPIM ---
History of Present Illness H&P Date: 04/10/24 History of present illness; patient is a 68-year-old lady with past medical history significant for metastatic rectal cancer brought to the ER for evaluation of lower abdominal pain. Patient that she has been not been feeling well for the last few days. Patient stated that she was having lower quad abdominal pain which was generalized, nonradiating, no aggravating or leaving factors associated abdominal pain. Patient also complaining of constipation and has not had a bowel movement in a number of days. There was no complaint of fever or chills. There was complaint of nausea but no vomiting. Patient stated she recently started chemotherapy. Because of these symptoms, patient presented to the ER Initial lab work done in the ER showed WBC 7.5, hemoglobin 9.5, platelet count 335, sodium 130, potassium 3, BUN 14, creatinine 0.53, lactate 4.5 EKG done in the ER showed heart rate of 116 , no ST segment elevation or depression seen, no T-wave inversions seen. CT abdominal pelvis done showed large pneumoperitoneum, mild circumferential wall thickening of a short segment of ascending colon and proximal sigmoid colon in associated with diverticula suggest diverticulitis versus colitis Patient admitted to internal medicine service REVIEW OF SYSTEMS: CONSTITUTIONAL: No fever, no malaise, no fatigue. HEENT: No recent visual problems or hearing problems. Denied any sore throat. CARDIOVASCULAR: No chest pain, orthopnea, PND, no palpitations, no syncope. PULMONARY: No shortness of breath, no cough, no hemoptysis. GASTROINTESTINAL: As mentioned above NEUROLOGICAL: No headaches, no weakness, no numbness. HEMATOLOGICAL: Denies any bleeding or petechiae. GENITOURINARY: Denies any burning micturition, frequency, or urgency. MUSCULOSKELETAL/RHEUMATOLOGICAL: Denies any joint pain, swelling, or any muscle pain. ENDOCRINE: Denies any polyuria or polydipsia. The rest of the 14-point review of systems is negative. PHYSICAL EXAMINATION: GENERAL: The patient is alert oriented chronically ill looking HEENT: Pupils are round and equally reacting to light. EOMI. No scleral icterus. No conjunctival pallor. Normocephalic, atraumatic. No pharyngeal erythema. No thyromegaly. CARDIOVASCULAR: S1 and S2 present. No murmurs, rubs, or gallops. PULMONARY: Chest is clear to auscultation, no wheezing or crackles. ABDOMEN: Tender, guarding present, normoactive bowel sounds. No palpable organomegaly. MUSCULOSKELETAL: No joint swelling or deformity. EXTREMITIES: No cyanosis, clubbing, or pedal edema. NEUROLOGICAL: Gross neurological examination did not reveal any focal deficits. SKIN: No rashes. Assessment and plan Pneumoperitoneum Acute diverticulitis Hyponatremia Hypokalemia Lactic acidosis History of rectal cancer Monitor vital signs Monitor CBC Monitor CMP Ordered pain management Ordered antiemetics Ordered IV fluids Serial lactate monitoring Ordered IV Rocephin and Flagyl Surgery consulted ID consulted Labs and medication were reviewed.. Continue same treatment. Continue with symptomatic treatment. Resume home medication. Monitor labs and vitals. DVT and GI prophylaxis. Further recommendations as per clinical course of the patient Dictation was produced using [employer] dictation software. please excuse any grammatical, word or spelling errors. Past Medical History Past Medical History: Cancer, Hypertension, Osteoarthritis (OA), Thyroid Disorder Additional Past Medical History / Comment(s): only took BP med when broke hip & took for short time only, hx. palpitations. Hemorrhoids. Pt. stated she quit smoing in october 2020. colon cancer, kidney stones, History of Any Multi-Drug Resistant Organisms: None Reported Past Surgical History: Hysterectomy, Joint Replacement Additional Past Surgical History / Comment(s): hermann hip replacements, to rt hip orif, colonoscopy Past Anesthesia/Blood Transfusion Reactions: Postoperative Nausea & Vomiting (PONV) Additional Past Anesthesia/Blood Transfusion Reaction / Comment(s): severe ponv, after colonscopy bp shot up with severe vomitting. no blood tx hx Past Psychological History: Anxiety Smoking Status: Former smoker Past Alcohol Use History: None Reported Past Drug Use History: None Reported - Past Family History Father Family Medical History: Congestive Heart Failure (CHF), Dementia, Osteoarthritis (OA) Mother Additional Family Medical History / Comment(s): Breast CA, skin CA Brother(s) Family Medical History: Cancer Additional Family Medical History / Comment(s): bone marrow cancer Medications and Allergies Home Medications Medication Instructions Recorded Confirmed Type Acetaminophen [Tylenol Arthritis] 650 mg PO Q4H PRN 03/18/24 04/10/24 History Allergies Allergy/AdvReac Type Severity Reaction Status Date / Time Penicillins Allergy Rash/Hives Verified 04/10/24 08:49 Physical Exam Vitals: Vital Signs Temp Pulse Resp BP Pulse Ox 04/10/24 09:00 128 H 17 222/149 94 L 04/10/24 06:40 89 16 203/107 91 L 04/10/24 05:31 97 16 160/94 95 04/10/24 04:41 98.4 F 122 H 16 170/108 97 Intake and Output 04/09/24 04/10/24 04/10/24 22:59 06:59 14:59 Other: Weight 39.463 kg Results CBC & Chem 7: 04/10/24 14:00 04/10/24 14:00 Labs: Abnormal Lab Results - Last 24 Hours (Table) 04/10/24 04/10/24 04/10/24 Range/Units 04:57 04:57 04:57 RBC 3.01 L (3.80-5.40) m/uL Hgb 9.5 L D (11.4-16.0) gm/dL Hct 26.9 L (34.0-46.0) % Lymphocytes # (Manual) 0.38 L (1.0-4.8) k/uL Sodium 130 L (137-145) mmol/L Potassium 3.0 L (3.5-5.1) mmol/L Chloride 87 L (98-107) mmol/L Carbon Dioxide 33 H (22-30) mmol/L Glucose 216 H (74-99) mg/dL Plasma Lactic Acid Dustin 4.5 H* (0.7-2.0) mmol/L Alkaline Phosphatase 159 H (38-126) U/L C-Reactive Protein 6.0 H (<1.0) mg/dL Total Protein 6.0 L (6.3-8.2) g/dL Albumin 3.4 L (3.5-5.0) g/dL
[2024-04-10 15:57] LABS: Appearance,Urine Clear (Clear); Bilirubin,Urine Negative (Negative); Blood,Urine Negative (Negative); Color,Urine Yellow; Glucose,Urine (UA) Negative (Negative); Ketones,Urine Negative (Negative); Leukocyte Esterase,Urine Negative (Negative); Nitrite,Urine Negative (Negative); Protein,Urine Trace (Negative); Specific Gravity,Urine 1.019 (1.001-1.035); Urobilinogen,Urine <2.0 mg/dL (<2.0)
--- NOTE | 2024-04-10 16:09 | P.CNPUL ---
History of Present Illness Consult date: 04/10/24 Requesting physician: Jhonathan Mares Reason for consult: other (ICU management) Chief complaint: Abdominal pain History of present illness: This is a 68-year-old female with history of metastatic rectal cancer presented to the ER today mostly with abdominal pain. Patient has been receiving reno motherapy for her rectal cancer, her first treatment was March 29. Patient has not been feeling well since March 29, presented to the ER with few days history of abdominal pain, lower abdominal pain. Patient had some nausea, no vomiting. No bowel movement for the last few days, patient noted no fever, no chills, CT of the abdomen pelvis showed pneumoperitoneum and possible perforation of the ascending colon. Patient underwent exploratory laparotomy sigmoid colon resection with end colostomy. Patient was found to have perforated diverticulitis of the sigmoid colon. Postoperatively, patient was sent to the ICU, intubated mechanically ventilated, she is presently on assist- control rate of 16, tidal volume increased to 350, FiO2 100% and PEEP of 5. ABG on FiO2 of 100% showed a pO2 of 392, pCO2 of 53 pH of 7.35, hence vent adjustment was made and she is now on FiO2 of 40%, rate of 16, and tidal volume of 350. Patient is hemodynamically stable, not requiring any pressors, she is however requiring fluids for relatively marginal blood pressure and tachycardia. Her electrolytes showed low potassium of 3.0 that is being addressed accordingly bicarb is 27 renal profile is normal WBC count is 1.4 hemoglobin 13.8. Her WBC count on admission was 7.5 dropped down significantly to 1.4. Antibiotics miranda, patient received cefepime, she is also on metronidazole, patient could not be placed on Zosyn mostly because of her penicillin allergy. On her initial presentation she received Levaquin she also received a Rocephin Review of Systems ROS unobtainable: due to endotracheal tube Past Medical History Past Medical History: Cancer, Hypertension, Osteoarthritis (OA), Thyroid Disorder Additional Past Medical History / Comment(s): only took BP med when broke hip & took for short time only, hx. palpitations. Hemorrhoids. Pt. stated she quit smoing in october 2020. colon cancer, kidney stones, History of Any Multi-Drug Resistant Organisms: None Reported Past Surgical History: Hysterectomy, Joint Replacement Additional Past Surgical History / Comment(s): hermann hip replacements, to rt hip orif, colonoscopy Past Anesthesia/Blood Transfusion Reactions: Postoperative Nausea & Vomiting (PONV) Additional Past Anesthesia/Blood Transfusion Reaction / Comment(s): severe ponv, after colonscopy bp shot up with severe vomitting. no blood tx hx Past Psychological History: Anxiety Smoking Status: Former smoker Past Alcohol Use History: None Reported Past Drug Use History: None Reported - Past Family History Father Family Medical History: Congestive Heart Failure (CHF), Dementia, Osteoarthritis (OA) Mother Additional Family Medical History / Comment(s): Breast CA, skin CA Brother(s) Family Medical History: Cancer Additional Family Medical History / Comment(s): bone marrow cancer Medications and Allergies Home Medications Medication Instructions Recorded Confirmed Type Acetaminophen [Tylenol Arthritis] 650 mg PO Q4H PRN 03/18/24 04/10/24 History Allergies Allergy/AdvReac Type Severity Reaction Status Date / Time Penicillins Allergy Rash/Hives Verified 04/10/24 08:49 Physical Exam Vitals: Vital Signs Temp Pulse Pulse Resp BP BP Pulse Ox 04/10/24 15:43 04/10/24 15:14 04/10/24 15:00 126 H 13 84/56 100 04/10/24 14:55 04/10/24 14:45 126 H 14 100 04/10/24 14:30 128 H 14 100 04/10/24 14:15 122 H 14 100 04/10/24 14:00 144 H 14 100 04/10/24 13:45 96.8 F L 124 H 14 130/105 04/10/24 13:40 04/10/24 13:20 04/10/24 11:19 120 H 17 167/107 96 04/10/24 11:10 98.8 F 139 H 18 138/97 95 04/10/24 09:00 128 H 17 222/149 94 L 04/10/24 06:40 89 16 203/107 91 L 04/10/24 05:31 97 16 160/94 95 04/10/24 04:41 98.4 F 122 H 16 170/108 97 FiO2 04/10/24 15:43 40 04/10/24 15:14 50 04/10/24 15:00 04/10/24 14:55 100 04/10/24 14:45 04/10/24 14:30 04/10/24 14:15 04/10/24 14:00 04/10/24 13:45 100 04/10/24 13:40 100 04/10/24 13:20 100 04/10/24 11:19 04/10/24 11:10 04/10/24 09:00 04/10/24 06:40 04/10/24 05:31 04/10/24 04:41 Intake and Output 04/10/24 04/10/24 04/10/24 06:59 14:59 22:59 Intake Total 1434.321 130 Output Total 120 15 Balance 1314.321 115 Intake: IV 1330 130 Sodium Chloride 0.9% 1, 130 130 000 ml @ 130 mls/hr IV . Q7H42M [facility]BEY Rx#:[id number] Intake, IV Titration 104.321 Amount metroNIDAZOLE-NS PMX 500 100 mg In Saline 1 100ml.bag @ 100 mls/hr IVPB Q8H ABBEY Rx#:[id number] propofoL 1,000 mg In 4.321 Empty Bag 1 bag @ 15 MCG/ KG/MIN 3.552 mls/hr IV . Q24H [facility]BEY Rx#:[id number] Output: Urine 70 15 Estimated Blood Loss 50 Other: Voiding Method Indwelling Catheter Weight 39.463 kg 39.463 kg ABP, PAP, CO, CI - Last 8 Hours Arterial Blood Pressure 107/68 Arterial Blood Pressure 79/46 Arterial Blood Pressure 107/62 Arterial Blood Pressure 129/68 Arterial Blood Pressure 115/60 Arterial Blood Pressure 151/74 General appearance: Revealed a 68-year-old female frail looking, chronically ill looking, intubated mechanically ventilated sedated, on propofol at 20 mcg/kg/min Head exam: Atraumatic, normocephalic Eye exam: PERRLA, EOMI, nonicteric. ENT exam: Endotracheal tube and nasogastric tube are intact, dry mucous membranes noted. Neck exam: No neck masses no JVD right IJ central line is noted Respiratory exam: Diminished breath sound bilaterally no crackles rhonchi or wheezes there is a Port-A-Cath noted in the right upper chest area Cardiovascular Exam: Tachycardic, normal S1-S2, no S3 gallop, no murmur GI/Abdominal exam: Postsurgical, colostomy is noted. No rebound no guarding. Extremities exam: No clubbing edema or cyanosis Neurological exam: Could not assess, patient is sedated, on propofol Skin exam: No rashes Results - Laboratory Findings CBC and BMP: 04/10/24 14:00 04/10/24 14:00 ABG ABG pH 7.35 (7.35-7.45) 04/10/24 14:17 ABG pCO2 53 mmHg (35-45) H 04/10/24 14:17 ABG pO2 392 mmHg (83-108) H 04/10/24 14:17 ABG O2 Saturation >100.0 % (94-97) H 04/10/24 14:17 Abnormal lab findings: Abnormal Labs 04/10/24 04/10/24 04/10/24 04:57 04:57 04:57 WBC RBC 3.01 L Hgb 9.5 L D Hct 26.9 L Neutrophils # Lymphocytes # Lymphocytes # (Manual) 0.38 L ABG pCO2 ABG pO2 ABG HCO3 ABG Total CO2 ABG O2 Saturation Sodium 130 L Potassium 3.0 L Chloride 87 L Carbon Dioxide 33 H Creatinine Glucose 216 H POC Glucose (mg/dL) Plasma Lactic Acid Dustin 4.5 H* Calcium Alkaline Phosphatase 159 H C-Reactive Protein 6.0 H Total Protein 6.0 L Albumin 3.4 L Urine Protein 04/10/24 04/10/24 04/10/24 10:39 13:39 14:00 WBC RBC Hgb Hct Neutrophils # Lymphocytes # Lymphocytes # (Manual) ABG pCO2 ABG pO2 ABG HCO3 ABG Total CO2 ABG O2 Saturation Sodium 131 L Potassium 3.0 L Chloride 97 L Carbon Dioxide Creatinine 0.44 L Glucose 136 H POC Glucose (mg/dL) 125 H Plasma Lactic Acid Dustin 2.5 H* Calcium 8.0 L Alkaline Phosphatase C-Reactive Protein Total Protein Albumin Urine Protein 04/10/24 04/10/24 04/10/24 14:00 14:17 14:40 WBC 1.4 L* RBC Hgb Hct Neutrophils # 1.0 L Lymphocytes # 0.3 L Lymphocytes # (Manual) ABG pCO2 53 H ABG pO2 392 H ABG HCO3 29 H ABG Total CO2 31 H ABG O2 Saturation >100.0 H Sodium Potassium Chloride Carbon Dioxide Creatinine Glucose POC Glucose (mg/dL) Plasma Lactic Acid Dustin 2.2 H* Calcium Alkaline Phosphatase C-Reactive Protein Total Protein Albumin Urine Protein 04/10/24 15:37 WBC RBC Hgb Hct Neutrophils # Lymphocytes # Lymphocytes # (Manual) ABG pCO2 ABG pO2 ABG HCO3 ABG Total CO2 ABG O2 Saturation Sodium Potassium Chloride Carbon Dioxide Creatinine Glucose POC Glucose (mg/dL) Plasma Lactic Acid Dustin Calcium Alkaline Phosphatase C-Reactive Protein Total Protein Albumin Urine Protein Trace H - Diagnostic Findings Chest x-ray: image reviewed (Chest x-ray was reviewed, as noted in HPI) Additional studies: CT of abdomen and pelvis as noted in HPI, showed large pneumoperitoneum, and mild circumferential wall thickening of the short segment of the ascending colon with proximal sigmoid colon in association with diverticular disease suggestive of diverticulitis/colitis and there is evidence of periaortic lymphadenopathy/nonspecific Assessment and Plan Assessment: Impression: Pneumoperitoneum, status post exploratory laparotomy and sigmoid colon resection with end colostomy postoperative day #0 Acute hypoxic respiratory failure secondary to above Abdominal sepsis History of metastatic rectal carcinoma patient has been on chemotherapy recently leukopenia secondary to sepsis Lactic acidosis secondary to abdominal sepsis Recommendation: Continue ventilatory support Monitor patient in the ICU not ready for weaning at this point. Hemodynamic support if felt necessary however in the meantime patient needs more fluids which will be given, and we will monitor her CVP Continue antibiotics including cefepime and Flagyl, patient is allergic to penicillin GI and DVT prophylaxis May have to consider TPN in the next 24 hours for nutritional support Patient is critically ill, Will continue to follow Will monitor daily labs electrolytes and CBC Will monitor daily x-rays of the chest Will consider trial of weaning in the next 24 hours. Critical care time is over 50 minutes Time with Patient: Greater than 30
[2024-04-10] MEDS: CEFEPIME 2 GM in SODIUM CHLORIDE 0.9% 100 ML IVPB SCH (16:11)
[2024-04-10] MEDS: CHLORHEXIDINE GLUCONATE 15 ML CUP MUCOUS MEM SCH (19:31)
[2024-04-10] MEDS: NOREPINEPHRINE 8 MG in SODIUM CHLORIDE 0.9% 250 ML IV SCH (21:07)
--- NOTE | 2024-04-10 22:21 | P.CONS ---
History of Present Illness - Reason for Consult Consult date: 04/10/24 Peritonitis, pneumoperitoneum Requesting physician: Michael Samson - Chief Complaint Abdominal pain x few days - History of Present Illness Patient is a 68-year-old female with a past medical history significant for hypertension osteoarthritis hypothyroidism, metastatic rectal cancer previous history of smoking presenting to the hospital for evaluation of abdominal pain patient pain has been getting worse over the last few days patient describing the pain to be sharp that has gradually increased in severity and over the last night was almost 10 out of 10 for the patient has been brought to the hospital patient did have episode of nausea but no vomiting and the patient did not have any bowel movement for the last few days with the symptoms the patient has been evaluated on presentation to the hospital patient was afebrile no fever have been recorded subsequently patient was tachycardic mildly hypotensive and hypoxic with O2 sat of 91% currently on nasal cannula oxygen, patient did have white count of 1.4 creatinine 0.44 liver isms are normal urine has been negative patient did have a CT of abdominal pelvis that has been suggestive of large pneumoperitoneum, mild circumferential wall thickening of the short segment of ascending colon and proximal sigmoid colon in association with diverticular changes concerning for diverticulitis patient was started on Rocephin and Flagyl because of her penicillin allergy infectious disease was consulted for further management of antibiotics Review of Systems Positive point and negatives has been mentioned in the HPI, complete review of systems was performed and all other systems are negative Past Medical History Past Medical History: Cancer, Hypertension, Osteoarthritis (OA), Thyroid Disorder Additional Past Medical History / Comment(s): only took BP med when broke hip & took for short time only, hx. palpitations. Hemorrhoids. Pt. stated she quit smoing in october 2020. colon cancer, kidney stones, History of Any Multi-Drug Resistant Organisms: None Reported Past Surgical History: Hysterectomy, Joint Replacement Additional Past Surgical History / Comment(s): hermann hip replacements, to rt hip orif, colonoscopy Past Anesthesia/Blood Transfusion Reactions: Postoperative Nausea & Vomiting (PONV) Additional Past Anesthesia/Blood Transfusion Reaction / Comm: severe ponv, after colonscopy bp shot up with severe vomitting. no blood tx hx Past Psychological History: Anxiety Smoking Status: Former smoker Past Alcohol Use History: None Reported Past Drug Use History: None Reported - Past Family History Father Family Medical History: Congestive Heart Failure (CHF), Dementia, Osteoarthritis (OA) Mother Additional Family Medical History / Comment(s): Breast CA, skin CA Brother(s) Family Medical History: Cancer Additional Family Medical History / Comment(s): bone marrow cancer Medications and Allergies Home Medications Medication Instructions Recorded Confirmed Type Acetaminophen [Tylenol Arthritis] 650 mg PO Q4H PRN 03/18/24 04/10/24 History Allergies Allergy/AdvReac Type Severity Reaction Status Date / Time Penicillins Allergy Rash/Hives Verified 04/10/24 08:49 Physical Exam Vitals: Vital Signs Temp Pulse Resp BP Pulse Ox 04/10/24 09:00 128 H 17 222/149 94 L 04/10/24 06:40 89 16 203/107 91 L 04/10/24 05:31 97 16 160/94 95 04/10/24 04:41 98.4 F 122 H 16 170/108 97 Intake and Output 04/09/24 04/10/24 04/10/24 22:59 06:59 14:59 Other: Weight 39.463 kg GENERAL DESCRIPTION: Elderly female lying in bed, no distress. No tachypnea or accessory muscle of respiration use. HEENT: Shows Pallor , no scleral icterus. Oral mucous membrane is dry. NECK: Trachea central, no thyromegaly. LUNGS: Unlabored breathing. Decreased breath sound at the base HEART: S1, S2, regular rate and rhythm. No loud murmur ABDOMEN: Soft, generalized tenderness EXTREMITIES: No edema of feet. SKIN: No rash, no masses palpable. NEUROLOGICAL: The patient is awake, alert, oriented x3, mood and affect normal. Results CBC & Chem 7: 04/10/24 14:00 04/10/24 21:18 Labs: Abnormal Lab Results - Last 24 Hours (Table) 04/10/24 04/10/24 04/10/24 Range/Units 04:57 04:57 04:57 RBC 3.01 L (3.80-5.40) m/uL Hgb 9.5 L D (11.4-16.0) gm/dL Hct 26.9 L (34.0-46.0) % Lymphocytes # (Manual) 0.38 L (1.0-4.8) k/uL Sodium 130 L (137-145) mmol/L Potassium 3.0 L (3.5-5.1) mmol/L Chloride 87 L (98-107) mmol/L Carbon Dioxide 33 H (22-30) mmol/L Glucose 216 H (74-99) mg/dL Plasma Lactic Acid Dustin 4.5 H* (0.7-2.0) mmol/L Alkaline Phosphatase 159 H (38-126) U/L C-Reactive Protein 6.0 H (<1.0) mg/dL Total Protein 6.0 L (6.3-8.2) g/dL Albumin 3.4 L (3.5-5.0) g/dL Assessment and Plan (1) Sepsis Current Visit: Yes Status: Acute Code(s): A41.9 - SEPSIS, UNSPECIFIED ORGANISM SNOMED Code(s): 86464229 (2) Peritonitis Current Visit: Yes Status: Acute Code(s): K65.9 - PERITONITIS, UNSPECIFIED SNOMED Code(s): 96044610 (3) Perforation of sigmoid colon due to diverticulitis Current Visit: Yes Status: Acute Code(s): K57.20 - DVTRCLI OF LG INT W PERFORATION AND ABSCESS W/O BLEEDING SNOMED Code(s): 6983369139754468 Plan: 1patient presented to hospital with sepsis in this patient who did have hypotension tachycardia leukopenia meeting criteria for SIRS source is likely perforated sigmoid diverticulitis with peritonitis, we will need to cover for the enteric gram-negative both aerobes and anaerobes keeping in mind her history of metastatic rectal cancer chemo and has been out of the hospital need to cover for resistant gram-negative pathogen 2-penicillin allergy therapy limit the number of antibiotics safe to use 3-discontinue Rocephin 4-we will start the patient cefepime 2 g every 8 hours Flagyl 500 mg every 8 hour 5-await surgical exploration and abdominal culture that will help narrow down her antibiotic therapy We will follow on clinical condition and cultures to further adjust medication if needed Thank you for this consultation we will follow the patient along with you Dictation was produced using [employer] dictation software. please excuse any grammatical, word or spelling errors. Have Time with Patient: Greater than 30
[2024-04-10] MEDS: SODIUM CHLORIDE 0.9% 500 ML 500 ML IV ONE (23:35)
[2024-04-11 00:03] LABS: Glucose,Whole Blood 103 mg/dL (70-110)
[2024-04-11 04:32] LABS: ABG Base Excess -2.4 mmol/L; ABG HCO3 23 mmol/L (21-25); ABG PCO2 41 mmHg (35-45); ABG PH 7.36 (7.35-7.45); ABG PO2 122 mmHg (83-108); ABG TCO2 24 mmol/L (19-24)
[2024-04-11 04:51] LABS: Allen Test Performed? no
[2024-04-11 04:53] LABS: HCT 33.9 % (34.0-46.0); HGB 11.5 gm/dL (11.4-16.0); MCH 30.9 pg (25.0-35.0); MCHC 33.9 g/dL (31.0-37.0); MCV 91.3 fL (80.0-100.0); Platelet Count 159 k/uL (150-450); RBC 3.71 m/uL (3.80-5.40); RDW 14.1 % (11.5-15.5); WBC 4.3 k/uL (3.8-10.6)
[2024-04-11 05:10] LABS: African American GFR (CKD) >90 (>60 ml/min/1.73 sqM); Anion Gap 4 mmol/L; Blood Urea Nitrogen 16 mg/dL (7-17); Calcium 7.6 mg/dL (8.4-10.2); Carbon Dioxide 22 mmol/L (22-30); Chloride 108 mmol/L (98-107); Glucose 102 mg/dL (74-99); Magnesium 2.1 mg/dL (1.6-2.3); Non-African American GFR(CKD) >90 (>60 ml/min/1.73 sqM); Potassium 4.2 mmol/L (3.5-5.1); Sodium 134 mmol/L (137-145)
[2024-04-11] MEDS: SODIUM CHLORIDE 0.9% 500 ML 500 ML IV ONE (05:19)
[2024-04-11 06:14] LABS: Glucose,Whole Blood 99 mg/dL (70-110)
[2024-04-11] MEDS ORDERED: fentaNYL (PF) 50 MCG/ML 2 ML AMP IVP PRN (07:00)
[2024-04-11] MEDS ORDERED: MIDAZOLAM 2 MG/2 ML VIAL IV PRN (07:00)
[2024-04-11] MEDS ORDERED: HYDROmorphone 0.5 MG/0.5 ML SYRINGE IVP PRN (07:00)
[2024-04-11 07:17] LABS: Band Neutrophils % 4 %; Lymphocytes # (M) 0.95 k/uL (1.0-4.8); Metamyelocytes % 7 %; Monocytes # (M) 0.22 k/uL (0-1.0); Myelocytes # (M) 0.09 k/uL (0); Myelocytes % 2 %; Neutrophils % (M) 63 %; Nucleated Red Blood Cells 0 /100 WBC (0-0); Total Cells Counted 200
[2024-04-11 07:19] LABS: Crenated RBC Present; Tear Drop Cells Present
--- NOTE | 2024-04-11 07:44 | XR ---
EXAMINATION TYPE: XR chest 1V portable DATE OF EXAM: 04/11/2024 5:39 AM COMPARISON: 04/10/2024 CLINICAL INDICATION: Female, 68 years old with history of difficulty breathing, TECHNIQUE: XR chest 1V portable view(s) obtained. FINDINGS: The heart size is normal. The pulmonary vasculature is normal. Mild diffuse infiltrate medially at the right base. Correlate for atelectasis. Endotracheal tube tip is 6.5 cm above the cy. Nasogastric tube transverses the thorax. Right cent ral venous catheters are present with the tips in the proximal 6 to mid superior vena cava. IMPRESSION: 1. Atelectasis right lung base. 2. Multiple lines and catheters discussed above [facility], , 04/11/2024 7:42 AM
--- NOTE | 2024-04-11 11:02 | P.PN ---
Subjective Progress Note Date: 04/11/24 Principal diagnosis: reason for consult: other (ICU management) This is a 68-year-old female with history of metastatic rectal cancer presented to the ER 04/10 mostly with abdominal pain. Patient has been receiving chemotherapy for her rectal cancer, her first treatment was March 29. Patient has not been feeling well since March 29, presented to the ER with few days history of abdominal pain, lower abdominal pain. Patient had some nausea, no vomiting. No bowel movement for the few days, patient noted no fever, no chills, CT of the abdomen pelvis showed pneumoperitoneum and possible perforation of the ascending colon. Patient underwent exploratory laparotomy sigmoid colon resection with end colostomy. Patient was found to have perforated diverticulitis of the sigmoid colon. Postoperatively, patient was sent to the ICU, intubated mechanically ventilated, she is presently on assist- control rate of 16, tidal volume increased to 350, FiO2 100% and PEEP of 5. ABG on FiO2 of 100% showed a pO2 of 392, pCO2 of 53 pH of 7.35, hence vent adjustment was made and she was on FiO2 of 40%, rate of 16, and tidal volume of 350. Patient is hemodynamically stable, not requiring any pressors, she is however requiring fluids for relatively marginal blood pressure and tachycardia. Her electrolytes showed low potassium of 3.0 that is being addressed accordingly bicarb is 27 renal profile is normal WBC count is 1.4 hemoglobin 13.8. Her WBC count on admission was 7.5 dropped down significantly to 1.4. Antibiotics miranda, patient received cefepime, she is also on metronidazole, patient could not be placed on Zosyn mostly because of her penicillin allergy. On her initial presentation she received Levaquin she also received a Rocephin. 04/11/2024 patient seen and examined at bedside. Patient still in the ICU intubated, sedated and mechanically ventilated. Ventilator settings are assist- control with a rate of 16, tidal volume 350, PEEP of 5 with FiO2 40%. No acute events overnight. Currently drips are normal saline 0.9% with a rate of 130 cc/h, propofol with a rate of 40 and Levophed of 0.02 mcg/kg/min. Chest x-ray shows atelectasis at the right lung base with ET tube, NG tube, and central venous catheters in place. ABG Shows CO2 22, CO2 41 and pH of 7.36. Other labs today show WBC 4.3, hemoglobin 11.5, platelet count 1 59,000, sodium 134, pota ssium 4.2 BUN 16, creatinine 0.58 glucose 102, calcium 7.6, phosphorus 3, magnesium 2.1 Review of systems: Could not assess Pertinent imaging and labs reviewed. Physical examination: Vital signs reviewed General: non toxic, no distress, intubated, sedated and mechanically ventilated Derm: no unusual rashes/lesions, warm Head: atraumatic, normocephalic, symmetric Eyes: EOMI, anicteric sclera, pupils equal round reactive to light ENT: Nose and ears atraumatic Neck: No cervical lymphadenopathy, trachea midline, supple Mouth: no lip lesion, mucus membranes moist Cardiovascular: S1S2 reg, no murmur Lungs: Bibasilar decreased breath sounds, no rhonchi, no rales, no accessory muscle use, central venous cath noted in right upper chest area Abdominal: soft, nontender to palpation, no guarding, colostomy bag seen on the left lower quadrant with output with stoma clean no erythema or swelling noted. Noted midline incision with dressing that is clean and dry and no erythema on surrounding skin Ext: no gross muscle atrophy, no contractures, positive dorsalis pedis pulse bilateral, no edema Neuro: Cannot assess Psych: Cannot assess Assessment/Plan: Active problems: Pneumoperitoneum, status post exploratory laparotomy and sigmoid colon resection with end colostomy postoperative day #1 Acute hypoxic respiratory failure secondary to above Abdominal sepsis, resolved leukopenia secondary to sepsis, resolved Lactic acidosis secondary to abdominal sepsis, resolved Chronic conditions: History of metastatic rectal carcinoma patient has been on chemotherapy recently Recommendations: Mechanical ventilator settings adjusted: FiO2 decreased to 30% Initiate daily SBT with goal to extubation Continue to wean off sedation Continue to wean off Levophed Continue IV fluids normal saline 130 cc/h Continue IV Cefepime and Flagyl for empiric coverage. Currently on day 2 May have to consider TPN in the next 24 hours for nutritional support Will monitor daily labs electrolytes and CBC Will monitor daily x-rays of the chest DVT prophylaxis: SCDs GI prophylaxis: Protonix 40 mg IV daily Prognosis: depending on clinical course Becki Navarrete MD PGY-1/[employer] Dictation was produced using [employer] dictation software. please excuse any g rammatical, word or spelling errors. Objective - Vital Signs Vital signs: Vital Signs Temp 98.7 F 04/11/24 08:00 Pulse 95 04/11/24 08:15 Resp 19 04/11/24 08:15 BP 131/63 04/11/24 08:15 Pulse Ox 99 04/11/24 08:15 FiO2 40 04/11/24 08:00 Intake & Output 04/10/24 04/11/24 04/11/24 18:59 06:59 18:59 Intake Total 3516.318 4206.984 155.214 Output Total 205 310 30 Balance 3311.318 3896.984 125.214 Weight 39.463 kg 52 kg Intake: IV 1850 1756 146 0.9 KVO 130 10 Sodium Chloride 0.9% 1, 650 1560 130 000 ml @ 130 mls/hr IV . Q7H42M REPLACED BY [facility] Rx#:[id number] pressure bag 66 6 Intake, IV Titration 4550.780 1768.984 9.214 Amount Cefepime 2 gm In Sodium 100 Chloride 0.9% 100 ml @ 25 mls/hr IVPB Q8HR REPLACED BY [facility] Rx# :[id number] Magnesium Sulfate-D5w Pmx 200 1 gm In Dextrose/Water 1 100ml.bag @ 100 mls/hr IVPB Q1H REPLACED BY [facility] Rx#: [id number] Norepinephrine 8 mg In 29.716 9.214 Sodium Chloride 0.9% 250 ml @ 0.03 MCG/KG/MIN 2. 291 mls/hr IV .Q24H REPLACED BY [facility] Rx#:[id number] Potassium Chloride 20 meq 300 In Water For Injection 1 100ml.bag @ 50 mls/hr IVPB Q2H REPLACED BY [facility] Rx#: [id number] Sodium Chloride 0.9% 1, 1000 000 ml @ 999 mls/hr IV . Q1H1M ONE Rx#:[id number] Sodium Chloride 0.9% 1, 1000 000 ml @ 999 mls/hr IV . Q1H1M [facility] Rx#:[id number] Sodium Chloride 0.9% 500 500 ml 500 ml @ 999 mls/hr IV .Q31M [facility] Rx#:[id number] Sodium Chloride 0.9% 500 500 ml 500 ml @ 999 mls/hr IV .Q31M [facility] Rx#:[id number] cefTRIAXone 1 gm In 50 Sodium Chloride 0.9% 50 ml @ 100 mls/hr IVPB ONCE [facility] Rx#:[id number] metroNIDAZOLE-NS PMX 500 100 200 mg In Saline 1 100ml.bag @ 100 mls/hr IVPB Q8H [facility] Rx#:[id number] propofoL 1,000 mg In 16.318 121.268 Empty Bag 1 bag @ 15 MCG/ KG/MIN 3.552 mls/hr IV . Q24H [facility] Rx#:[id number] Output: Urine 155 310 30 Estimated Blood Loss 50 Other: Voiding Method Indwelling Catheter Indwelling Catheter ABP, PAP, CO, CI - Last Documented Arterial Blood Pressure 122/51 - Labs CBC & Chem 7: 04/11/24 04:30 04/11/24 04:30 Labs: Abnormal Lab Results - Last 24 Hours (Table) 04/10/24 04/10/24 04/10/24 Range/Units 10:39 13:39 14:00 WBC (3.8-10.6) k/uL RBC (3.80-5.40) m/uL Hct (34.0-46.0) % Neutrophils # (1.3-7.7) k/uL Lymphocytes # (1.0-4.8) k/uL Lymphocytes # (Manual) (1.0-4.8) k/uL Metamyelocytes # (Man) (0) k/uL Myelocytes # (Manual) (0) k/uL ABG pCO2 (35-45) mmHg ABG pO2 (83-108) mmHg ABG HCO3 (21-25) mmol/L ABG Total CO2 (19-24) mmol/L ABG O2 Saturation (94-97) % Sodium 131 L (137-145) mmol/L Potassium 3.0 L (3.5-5.1) mmol/L Chloride 97 L (98-107) mmol/L Creatinine 0.44 L (0.52-1.04) mg/dL Glucose 136 H (74-99) mg/dL POC Glucose (mg/dL) 125 H (70-110) mg/dL Plasma Lactic Acid Dustin 2.5 H* (0.7-2.0) mmol/L Calcium 8.0 L (8.4-10.2) mg/dL Urine Protein (Negative) 04/10/24 04/10/24 04/10/24 Range/Units 14:00 14:17 14:40 WBC 1.4 L* (3.8-10.6) k/uL RBC (3.80-5.40) m/uL Hct (34.0-46.0) % Neutrophils # 1.0 L (1.3-7.7) k/uL Lymphocytes # 0.3 L (1.0-4.8) k/uL Lymphocytes # (Manual) (1.0-4.8) k/uL Metamyelocytes # (Man) (0) k/uL Myelocytes # (Manual) (0) k/uL ABG pCO2 53 H (35-45) mmHg ABG pO2 392 H (83-108) mmHg ABG HCO3 29 H (21-25) mmol/L ABG Total CO2 31 H (19-24) mmol/L ABG O2 Saturation >100.0 H (94-97) % Sodium (137-145) mmol/L Potassium (3.5-5.1) mmol/L Chloride (98-107) mmol/L Creatinine (0.52-1.04) mg/dL Glucose (74-99) mg/dL POC Glucose (mg/dL) (70-110) mg/dL Plasma Lactic Acid Dustin 2.2 H* (0.7-2.0) mmol/L Calcium (8.4-10.2) mg/dL Urine Protein (Negative) 04/10/24 04/11/24 04/11/24 Range/Units 15:37 04:30 04:30 WBC (3.8-10.6) k/uL RBC 3.71 L (3.80-5.40) m/uL Hct 33.9 L (34.0-46.0) % Neutrophils # (1.3-7.7) k/uL Lymphocytes # (1.0-4.8) k/uL Lymphocytes # (Manual) 0.95 L (1.0-4.8) k/uL Metamyelocytes # (Man) 0.30 H (0) k/uL Myelocytes # (Manual) 0.09 H (0) k/uL ABG pCO2 (35-45) mmHg ABG pO2 (83-108) mmHg ABG HCO3 (21-25) mmol/L ABG Total CO2 (19-24) mmol/L ABG O2 Saturation (94-97) % Sodium 134 L (137-145) mmol/L Potassium (3.5-5.1) mmol/L Chloride 108 H (98-107) mmol/L Creatinine (0.52-1.04) mg/dL Glucose 102 H (74-99) mg/dL POC Glucose (mg/dL) (70-110) mg/dL Plasma Lactic Acid Dustin (0.7-2.0) mmol/L Calcium 7.6 L (8.4-10.2) mg/dL Urine Protein Trace H (Negative) 04/11/24 Range/Units 04:31 WBC (3.8-10.6) k/uL RBC (3.80-5.40) m/uL Hct (34.0-46.0) % Neutrophils # (1.3-7.7) k/uL Lymphocytes # (1.0-4.8) k/uL Lymphocytes # (Manual) (1.0-4.8) k/uL Metamyelocytes # (Man) (0) k/uL Myelocytes # (Manual) (0) k/uL ABG pCO2 (35-45) mmHg ABG pO2 122 H (83-108) mmHg ABG HCO3 (21-25) mmol/L ABG Total CO2 (19-24) mmol/L ABG O2 Saturation 99.0 H (94-97) % Sodium (137-145) mmol/L Potassium (3.5-5.1) mmol/L Chloride (98-107) mmol/L Creatinine (0.52-1.04) mg/dL Glucose (74-99) mg/dL POC Glucose (mg/dL) (70-110) mg/dL Plasma Lactic Acid Dustin (0.7-2.0) mmol/L Calcium (8.4-10.2) mg/dL Urine Protein (Negative)
[2024-04-11 12:09] LABS: Glucose,Whole Blood 84 mg/dL (70-110)
--- NOTE | 2024-04-11 13:39 | P.PN ---
Subjective Progress Note Date: 04/11/24 patient is a 68-year-old lady with past medical history significant for metastatic rectal cancer brought to the ER for evaluation of lower abdominal pain. Patient that she has been not been feeling well for the last few days. Patient stated that she was having lower quad abdominal pain which was generali zed, nonradiating, no aggravating or leaving factors associated abdominal pain. Patient also complaining of constipation and has not had a bowel movement in a number of days. There was no complaint of fever or chills. There was complaint of nausea but no vomiting. Patient stated she recently started chemotherapy. Because of these symptoms, patient presented to the ER Initial lab work done in the ER showed WBC 7.5, hemoglobin 9.5, platelet count 335, sodium 130, potassium 3, BUN 14, creatinine 0.53, lactate 4.5 EKG done in the ER showed heart rate of 116 , no ST segment elevation or depres stefania seen, no T-wave inversions seen. CT abdominal pelvis done showed large pneumoperitoneum, mild circumferential wall thickening of a short segment of ascending colon and proximal sigmoid colon in associated with diverticula suggest diverticulitis versus colitis Patient admitted to internal medicine service 04/11. Patient seen and examined. Patient currently intubated, opening eyes and following commands. REVIEW OF SYSTEMS: Currently intubated PHYSICAL EXAMINATION: GENERAL: The patient is intubated HEENT: Pupils are round and equally reacting to light. EOMI. No scleral icterus. No conjunctival pallor. Normocephalic, atraumatic. No pharyngeal erythema. No thyromegaly. CARDIOVASCULAR: S1 and S2 present. No murmurs, rubs, or gallops. PULMONARY: Chest is clear to auscultation, no wheezing or crackles. ABDOMEN: Tenderness, surgical incision seen no palpable organomegaly. MUSCULOSKELETAL: No joint swelling or deformity. EXTREMITIES: No cyanosis, clubbing, or pedal edema. NEUROLOGICAL: Intubated SKIN: No rashes. Assessment and plan Pneumoperitoneum Sepsis Acute hypoxic respiratory failure Acute sigmoid colon perforation Acute diverticulitis Hyponatremia Hypokalemia Lactic acidosis History of rectal cancer Monitor vital signs Monitor CBC Monitor CMP Continue telemetry monitoring status post exploratory laparotomy and sigmoid colon resection with end colostomy Continue vent management Aggressive bronchopulmonary hygiene Continue IV cefepime, Flagyl Pulmonology following Surgery following ID following Labs and medication were reviewed.. Continue same treatment. Continue with symptomatic treatment. Resume home medication. Monitor labs and vitals. DVT and GI prophylaxis. Further recommendations as per clinical course of the patient Dictation was produced using [employer] dictation software. please excuse any grammatical, word or spelling errors. Objective - Vital Signs Vital signs: Vital Signs Temp 98.7 F 04/11/24 08:00 Pulse 95 04/11/24 08:15 Resp 19 04/11/24 08:15 BP 131/63 04/11/24 08:15 Pulse Ox 99 04/11/24 08:15 FiO2 40 04/11/24 08:00 Intake & Output 04/10/24 04/11/24 04/11/24 18:59 06:59 18:59 Intake Total 3516.318 4206.984 155.214 Output Total 205 310 30 Balance 3311.318 3896.984 125.214 Weight 39.463 kg 52 kg Intake: IV 1850 1756 146 0.9 KVO 130 10 Sodium Chloride 0.9% 1, 650 1560 130 000 ml @ 130 mls/hr IV . Q7H42M [facility] Rx#:[id number] pressure bag 66 6 Intake, IV Titration 7995.391 9770.984 9.214 Amount Cefepime 2 gm In Sodium 100 Chloride 0.9% 100 ml @ 25 mls/hr IVPB Q8HR [facility] Rx# :[id number] Magnesium Sulfate-D5w Pmx 200 1 gm In Dextrose/Water 1 100ml.bag @ 100 mls/hr IVPB Q1H [facility] Rx#: [id number] Norepinephrine 8 mg In 29.716 9.214 Sodium Chloride 0.9% 250 ml @ 0.03 MCG/KG/MIN 2. 291 mls/hr IV .Q24H [facility] Rx#:[id number] Potassium Chloride 20 meq 300 In Water For Injection 1 100ml.bag @ 50 mls/hr IVPB Q2H [facility] Rx#: [id number] Sodium Chloride 0.9% 1, 1000 000 ml @ 999 mls/hr IV . Q1H1M [facility] Rx#:[id number] Sodium Chloride 0.9% 1, 1000 000 ml @ 999 mls/hr IV . Q1H1M [facility] Rx#:[id number] Sodium Chloride 0.9% 500 500 ml 500 ml @ 999 mls/hr IV .Q31M [facility] Rx#:[id number] Sodium Chloride 0.9% 500 500 ml 500 ml @ 999 mls/hr IV .Q31M [facility] Rx#:[id number] cefTRIAXone 1 gm In 50 Sodium Chloride 0.9% 50 ml @ 100 mls/hr IVPB ONCE [facility] Rx#:[id number] metroNIDAZOLE-NS PMX 500 100 200 mg In Saline 1 100ml.bag @ 100 mls/hr IVPB Q8H [facility] Rx#:[id number] propofoL 1,000 mg In 16.318 121.268 Empty Bag 1 bag @ 15 MCG/ KG/MIN 3.552 mls/hr IV . Q24H [facility] Rx#:[id number] Output: Urine 155 310 30 Estimated Blood Loss 50 Other: Voiding Method Indwelling Catheter Indwelling Catheter ABP, PAP, CO, CI - Last Documented Arterial Blood Pressure 122/51 - Labs CBC & Chem 7: 04/11/24 04:30 04/11/24 04:30 Labs: Abnormal Lab Results - Last 24 Hours (Table) 04/10/24 04/10/24 04/10/24 Range/Units 10:39 13:39 14:00 WBC (3.8-10.6) k/uL RBC (3.80-5.40) m/uL Hct (34.0-46.0) % Neutrophils # (1.3-7.7) k/uL Lymphocytes # (1.0-4.8) k/uL Lymphocytes # (Manual) (1.0-4.8) k/uL Metamyelocytes # (Man) (0) k/uL Myelocytes # (Manual) (0) k/uL ABG pCO2 (35-45) mmHg ABG pO2 (83-108) mmHg ABG HCO3 (21-25) mmol/L ABG Total CO2 (19-24) mmol/L ABG O2 Saturation (94-97) % Sodium 131 L (137-145) mmol/L Potassium 3.0 L (3.5-5.1) mmol/L Chloride 97 L (98-107) mmol/L Creatinine 0.44 L (0.52-1.04) mg/dL Glucose 136 H (74-99) mg/dL POC Glucose (mg/dL) 125 H (70-110) mg/dL Plasma Lactic Acid Dustin 2.5 H* (0.7-2.0) mmol/L Calcium 8.0 L (8.4-10.2) mg/dL Urine Protein (Negative) 04/10/24 04/10/24 04/10/24 Range/Units 14:00 14:17 14:40 WBC 1.4 L* (3.8-10.6) k/uL RBC (3.80-5.40) m/uL Hct (34.0-46.0) % Neutrophils # 1.0 L (1.3-7.7) k/uL Lymphocytes # 0.3 L (1.0-4.8) k/uL Lymphocytes # (Manual) (1.0-4.8) k/uL Metamyelocytes # (Man) (0) k/uL Myelocytes # (Manual) (0) k/uL ABG pCO2 53 H (35-45) mmHg ABG pO2 392 H (83-108) mmHg ABG HCO3 29 H (21-25) mmol/L ABG Total CO2 31 H (19-24) mmol/L ABG O2 Saturation >100.0 H (94-97) % Sodium (137-145) mmol/L Potassium (3.5-5.1) mmol/L Chloride (98-107) mmol/L Creatinine (0.52-1.04) mg/dL Glucose (74-99) mg/dL POC Glucose (mg/dL) (70-110) mg/dL Plasma Lactic Acid Dustin 2.2 H* (0.7-2.0) mmol/L Calcium (8.4-10.2) mg/dL Urine Protein (Negative) 04/10/24 04/11/24 04/11/24 Range/Units 15:37 04:30 04:30 WBC (3.8-10.6) k/uL RBC 3.71 L (3.80-5.40) m/uL Hct 33.9 L (34.0-46.0) % Neutrophils # (1.3-7.7) k/uL Lymphocytes # (1.0-4.8) k/uL Lymphocytes # (Manual) 0.95 L (1.0-4.8) k/uL Metamyelocytes # (Man) 0.30 H (0) k/uL Myelocytes # (Manual) 0.09 H (0) k/uL ABG pCO2 (35-45) mmHg ABG pO2 (83-108) mmHg ABG HCO3 (21-25) mmol/L ABG Total CO2 (19-24) mmol/L ABG O2 Saturation (94-97) % Sodium 134 L (137-145) mmol/L Potassium (3.5-5.1) mmol/L Chloride 108 H (98-107) mmol/L Creatinine (0.52-1.04) mg/dL Glucose 102 H (74-99) mg/dL POC Glucose (mg/dL) (70-110) mg/dL Plasma Lactic Acid Dustin (0.7-2.0) mmol/L Calcium 7.6 L (8.4-10.2) mg/dL Urine Protein Trace H (Negative) 04/11/24 Range/Units 04:31 WBC (3.8-10.6) k/uL RBC (3.80-5.40) m/uL Hct (34.0-46.0) % Neutrophils # (1.3-7.7) k/uL Lymphocytes # (1.0-4.8) k/uL Lymphocytes # (Manual) (1.0-4.8) k/uL Metamyelocytes # (Man) (0) k/uL Myelocytes # (Manual) (0) k/uL ABG pCO2 (35-45) mmHg ABG pO2 122 H (83-108) mmHg ABG HCO3 (21-25) mmol/L ABG Total CO2 (19-24) mmol/L ABG O2 Saturation 99.0 H (94-97) % Sodium (137-145) mmol/L Potassium (3.5-5.1) mmol/L Chloride (98-107) mmol/L Creatinine (0.52-1.04) mg/dL Glucose (74-99) mg/dL POC Glucose (mg/dL) (70-110) mg/dL Plasma Lactic Acid Dustin (0.7-2.0) mmol/L Calcium (8.4-10.2) mg/dL Urine Protein (Negative)
--- NOTE | 2024-04-11 15:45 | P.CONS ---
History of Present Illness - Reason for Consult Consult date: 04/11/24 Stage IV colon adenocarcinoma Requesting physician: Delta Stanford - Chief Complaint perforated bowel - History of Present Illness Ms. Alvarez is a 68-year-old femal pt of Dr. Cait Bonilla, diagnosed with adenocarcinoma of the transverse colon and rectum fall 2023. She reported having irregular bowel movements with constipation versus loose stool with narrower caliber stools along with intermittent melena over the past year and a half. During this time, she did lose 30 pounds. She also noted intermittent abdominal discomfort. Due to these symptoms, she was recommended to have colonoscopy. This was performed on 01/08/2024 revealing 2 cm cecal polyp, 2 cm broad-based ascending colon polyp, 2 cm and 2.5 cm transverse colon polyps, 4 cm sigmoid colon polyp 40 cm from the anal verge, 2 cm rectosigmoid polyp 80 cm from the anal verge, and 4 cm distal rectal lesion extending onto the dentate line. All of these polyps, except for the rectal lesion, were excised through polypectomy. Pathology noted adenocarcinoma with mucinous features in both transverse colon polyps along with moderate differentiated adenocarcinoma involving the distal rectal mass with no loss of mismatch repair proteins by IHC. High-grade dysplasia was noted in the sigmoid colon polyp. Germline testing for martines syndrome pending. Staging CT 02/08/2024 revealed known rectal lesion in addition to suspicious retroperitoneal and periesophageal lymphadenopathy. PET/CT 02/19/2024 noted FDG avid avidity of the visualized retroperitoneal and paraesophageal lymph nodes as well as FDG uptake in C7 and T1-T4 vertebral bodies. NGS noted microsatellite stable disease with high tumor mutation burden and KRAS G12A mutation. Palliative chemo recommended. She had her 1st cycle of [id number] for met colon adenocarcinoma on 03/29, pump was sched to be removed on 03/31 but, she was "too sick" to come in. She came 04/01 for pump removal and received hydration and antiemetics that day. Socially she has Hx 2ppd smoke from the age of 12 until the age of 64, quit in 2020. She had remote history of alcohol abuse, no recent history of alcohol intake. She does use marijuana Gummies and occasionally smokes marijuana, but denies any other illicit drug use. Brother has a form of "bone marrow cancer" and history of polyps. She does not recall if he was diagnosed with colorectal cancer, but he did recommend his siblings to all have colonoscopies. Her brother gets colonoscopies annually. Her mother was diagnosed with breast cancer in her early 70s. Pt seen in ICU, s/p exp lap with sigmoid resection and end colostomy for pneumoperitoneum. She is alert on the vent, she is writing. She is thirsty. Plans to extubate today Review of Systems Intubated but, pt is writing-she is thirsty Past Medical History Past Medical History: Cancer, Hypertension, Osteoarthritis (OA), Thyroid Disorder Additional Past Medical History / Comment(s): only took BP med when broke hip & took for short time only, hx. palpitations. Hemorrhoids. Pt. stated she quit smoing in october 2020. colon cancer, kidney stones, History of Any Multi-Drug Resistant Organisms: None Reported Past Surgical History: Hysterectomy, Joint Replacement Additional Past Surgical History / Comment(s): hermann hip replacements, to rt hip orif, colonoscopy Past Anesthesia/Blood Transfusion Reactions: Postoperative Nausea & Vomiting (PONV) Additional Past Anesthesia/Blood Transfusion Reaction / Comm: severe ponv, after colonscopy bp shot up with severe vomitting. no blood tx hx Past Psychological History: Anxiety Smoking Status: Former smoker Past Alcohol Use History: None Reported Past Drug Use History: None Reported - Past Family History Father Family Medical History: Congestive Heart Failure (CHF), Dementia, Osteoarthritis (OA) Mother Additional Family Medical History / Comment(s): Breast CA, skin CA Brother(s) Family Medical History: Cancer Additional Family Medical History / Comment(s): bone marrow cancer Medications and Allergies Home Medications Medication Instructions Recorded Confirmed Type Acetaminophen [Tylenol Arthritis] 650 mg PO Q4H PRN 03/18/24 04/10/24 History Allergies Allergy/AdvReac Type Severity Reaction Status Date / Time Penicillins Allergy Rash/Hives Verified 04/10/24 08:49 Physical Exam Vitals: Vital Signs Temp Pulse Pulse Resp BP BP Pulse Ox 04/11/24 07:31 04/11/24 07:00 97.9 F 86 16 128/65 99 04/11/24 06:45 89 16 99 04/11/24 06:30 86 16 164/71 99 04/11/24 06:15 86 16 99 04/11/24 06:00 98.4 F 89 16 118/73 99 04/11/24 05:45 82 16 99 04/11/24 05:30 86 16 119/60 99 04/11/24 05:15 92 16 99 04/11/24 05:00 84 16 136/78 99 04/11/24 04:45 88 14 99 04/11/24 04:30 90 16 100 04/11/24 04:15 90 16 119/66 99 04/11/24 04:00 88 16 110/77 99 04/11/24 03:45 87 16 99 04/11/24 03:30 87 16 111/76 99 04/11/24 03:15 98 17 111/76 99 04/11/24 03:00 90 17 110/70 99 04/11/24 02:54 04/11/24 02:45 86 17 99 04/11/24 02:30 84 17 109/72 99 04/11/24 02:15 86 17 109/72 100 04/11/24 02:00 86 17 113/72 100 04/11/24 01:45 86 17 100 04/11/24 01:30 87 17 117/68 100 04/11/24 01:15 86 17 100 04/11/24 01:00 87 17 107/65 100 04/11/24 00:45 85 17 100 04/11/24 00:30 84 17 100 04/11/24 00:15 85 17 100 04/11/24 00:10 87 17 99/65 100 04/11/24 00:00 97.6 F 89 15 111/75 100 04/10/24 23:45 93 16 100 04/10/24 23:30 96 16 100 04/10/24 23:19 04/10/24 23:15 93 18 94/67 100 04/10/24 23:00 92 16 105/70 100 04/10/24 22:45 91 16 105/70 100 04/10/24 22:30 90 15 95/63 100 04/10/24 22:15 90 15 100 04/10/24 22:00 90 16 86/62 100 04/10/24 21:45 89 17 99 04/10/24 21:30 92 18 92/63 99 04/10/24 21:15 92 16 93/61 100 04/10/24 21:00 98.0 F 90 13 85/57 100 04/10/24 20:45 90 16 100 04/10/24 20:30 90 17 85/56 100 04/10/24 20:15 92 17 100 04/10/24 20:00 98 17 73/47 99 04/10/24 19:45 105 H 14 73/47 99 04/10/24 19:31 04/10/24 19:30 117 H 20 96/69 87 L 04/10/24 19:15 106 H 16 96/69 100 04/10/24 19:00 106 H 17 100 04/10/24 18:45 105 H 16 92/67 100 04/10/24 18:30 104 H 16 100 04/10/24 18:15 105 H 16 102/67 100 04/10/24 18:00 105 H 14 106/65 100 04/10/24 17:45 106 H 16 106/65 100 04/10/24 17:30 105 H 16 100 04/10/24 17:15 104 H 16 102/65 100 04/10/24 17:00 104 H 16 100 04/10/24 16:45 101 H 16 124/74 100 04/10/24 16:30 101 H 16 100 04/10/24 16:15 106 H 16 128/84 100 04/10/24 16:00 97.8 F 113 H 16 100 04/10/24 15:45 114 H 16 100 04/10/24 15:43 04/10/24 15:30 141 H 10 L 99 04/10/24 15:15 129 H 14 110/87 100 04/10/24 15:14 04/10/24 15:00 126 H 13 84/56 100 04/10/24 14:55 04/10/24 14:45 126 H 14 100 04/10/24 14:30 128 H 14 100 04/10/24 14:15 122 H 14 100 04/10/24 14:00 144 H 14 100 04/10/24 13:45 96.8 F L 124 H 14 130/105 04/10/24 13:40 04/10/24 13:20 04/10/24 11:19 120 H 17 167/107 96 04/10/24 11:10 98.8 F 139 H 18 138/97 95 04/10/24 09:00 128 H 17 222/149 94 L FiO2 04/11/24 07:31 40 04/11/24 07:00 40 04/11/24 06:45 40 04/11/24 06:30 40 04/11/24 06:15 40 04/11/24 06:00 40 04/11/24 05:45 40 04/11/24 05:30 40 04/11/24 05:15 40 04/11/24 05:00 40 04/11/24 04:45 40 04/11/24 04:30 40 04/11/24 04:15 04/11/24 04:00 40 04/11/24 03:45 40 04/11/24 03:30 40 04/11/24 03:15 40 04/11/24 03:00 40 04/11/24 02:54 40 04/11/24 02:45 40 04/11/24 02:30 40 04/11/24 02:15 04/11/24 02:00 04/11/24 01:45 04/11/24 01:30 04/11/24 01:15 04/11/24 01:00 40 04/11/24 00:45 40 04/11/24 00:30 40 04/11/24 00:15 40 04/11/24 00:10 40 04/11/24 00:00 40 04/10/24 23:45 04/10/24 23:30 04/10/24 23:19 40 04/10/24 23:15 04/10/24 23:00 04/10/24 22:45 04/10/24 22:30 04/10/24 22:15 04/10/24 22:00 04/10/24 21:45 04/10/24 21:30 04/10/24 21:15 04/10/24 21:00 04/10/24 20:45 04/10/24 20:30 04/10/24 20:15 04/10/24 20:00 100 04/10/24 19:45 04/10/24 19:31 40 04/10/24 19:30 04/10/24 19:15 04/10/24 19:00 04/10/24 18:45 04/10/24 18:30 04/10/24 18:15 04/10/24 18:00 04/10/24 17:45 04/10/24 17:30 04/10/24 17:15 04/10/24 17:00 04/10/24 16:45 04/10/24 16:30 04/10/24 16:15 04/10/24 16:00 40 04/10/24 15:45 04/10/24 15:43 40 04/10/24 15:30 40 04/10/24 15:15 04/10/24 15:14 50 04/10/24 15:00 04/10/24 14:55 100 04/10/24 14:45 04/10/24 14:30 04/10/24 14:15 04/10/24 14:00 04/10/24 13:45 100 04/10/24 13:40 100 04/10/24 13:20 100 04/10/24 11:19 04/10/24 11:10 04/10/24 09:00 Intake and Output 04/10/24 04/11/24 04/11/24 22:59 06:59 14:59 Intake Total 3695.278 2593.703 151.854 Output Total 195 200 30 Balance 3500.278 2393.703 121.854 Intake: IV 1108 1168 146 0.9 KVO 50 80 10 Sodium Chloride 0.9% 1, 1040 1040 130 000 ml @ 130 mls/hr IV . Q7H42M [facility] Rx#:[id number] pressure bag 18 48 6 Intake, IV Titration 2587.278 1425.703 5.854 Amount Cefepime 2 gm In Sodium 100 Chloride 0.9% 100 ml @ 25 mls/hr IVPB Q8HR [facility] Rx# :[id number] Magnesium Sulfate-D5w Pmx 200 1 gm In Dextrose/Water 1 100ml.bag @ 100 mls/hr IVPB Q1H [facility] Rx#: [id number] Norepinephrine 8 mg In 2.354 27.362 5.854 Sodium Chloride 0.9% 250 ml @ 0.03 MCG/KG/MIN 2. 291 mls/hr IV .Q24H [facility] Rx#:[id number] Potassium Chloride 20 meq 300 In Water For Injection 1 100ml.bag @ 50 mls/hr IVPB Q2H [facility] Rx#: [id number] Sodium Chloride 0.9% 1, 1000 000 ml @ 999 mls/hr IV . Q1H1M [facility] Rx#:[id number] Sodium Chloride 0.9% 1, 1000 000 ml @ 999 mls/hr IV . Q1H1M [facility] Rx#:[id number] Sodium Chloride 0.9% 500 500 ml 500 ml @ 999 mls/hr IV .Q31M [facility] Rx#:[id number] Sodium Chloride 0.9% 500 500 ml 500 ml @ 999 mls/hr IV .Q31M [facility] Rx#:[id number] cefTRIAXone 1 gm In 50 Sodium Chloride 0.9% 50 ml @ 100 mls/hr IVPB ONCE [facility] Rx#:[id number] metroNIDAZOLE-NS PMX 500 200 mg In Saline 1 100ml.bag @ 100 mls/hr IVPB Q8H [facility] Rx#:[id number] propofoL 1,000 mg In 34.924 98.341 Empty Bag 1 bag @ 15 MCG/ KG/MIN 3.552 mls/hr IV . Q24H [facility] Rx#:[id number] Output: Urine 195 200 30 Other: Voiding Method Indwelling Catheter Indwelling Catheter Weight 52 kg ABP, PAP, CO, CI - Last 8 Hours Arterial Blood Pressure 122/51 Arterial Blood Pressure 121/51 Arterial Blood Pressure 111/63 Arterial Blood Pressure 111/52 Arterial Blood Pressure 167/63 Arterial Blood Pressure 132/52 Arterial Blood Pressure 126/51 Arterial Blood Pressure 233/229 Arterial Blood Pressure 120/49 Arterial Blood Pressure 120/49 Arterial Blood Pressure 142/63 Arterial Blood Pressure 132/50 Arterial Blood Pressure 137/53 Arterial Blood Pressure 109/42 Arterial Blood Pressure 116/44 Arterial Blood Pressure 93/49 Arterial Blood Pressure 92/49 Arterial Blood Pressure 95/49 Arterial Blood Pressure 94/48 Arterial Blood Pressure 106/47 Arterial Blood Pressure 101/44 Arterial Blood Pressure 123/48 Arterial Blood Pressure 121/45 Arterial Blood Pressure 111/43 - Constitutional General appearance: average body habitus, cooperative, no acute distress - EENT Eyes: anicteric sclerae, EOMI ENT: hearing grossly normal - Respiratory Respiratory: bilateral: CTA - Cardiovascular Rhythm: regular Heart sounds: normal: S1, S2 Abnormal Heart Sounds: no systolic murmur, no diastolic murmur, no rub, no S3 Gallop, no S4 Gallop, no click, no other leg Peripheral Edema: bilateral: None - Gastrointestinal ostomy, surgical incision General gastrointestinal: soft - Integumentary Integumentary: normal - Psychiatric alert, oriented to write words Results CBC & Chem 7: 04/11/24 04:30 04/11/24 04:30 Labs: Abnormal Lab Results - Last 24 Hours (Table) 04/10/24 04/10/24 04/10/24 Range/Units 10:39 13:39 14:00 WBC (3.8-10.6) k/uL RBC (3.80-5.40) m/uL Hct (34.0-46.0) % Neutrophils # (1.3-7.7) k/uL Lymphocytes # (1.0-4.8) k/uL Lymphocytes # (Manual) (1.0-4.8) k/uL Metamyelocytes # (Man) (0) k/uL Myelocytes # (Manual) (0) k/uL ABG pCO2 (35-45) mmHg ABG pO2 (83-108) mmHg ABG HCO3 (21-25) mmol/L ABG Total CO2 (19-24) mmol/L ABG O2 Saturation (94-97) % Sodium 131 L (137-145) mmol/L Potassium 3.0 L (3.5-5.1) mmol/L Chloride 97 L (98-107) mmol/L Creatinine 0.44 L (0.52-1.04) mg/dL Glucose 136 H (74-99) mg/dL POC Glucose (mg/dL) 125 H (70-110) mg/dL Plasma Lactic Acid Dustin 2.5 H* (0.7-2.0) mmol/L Calcium 8.0 L (8.4-10.2) mg/dL Urine Protein (Negative) 04/10/24 04/10/24 04/10/24 Range/Units 14:00 14:17 14:40 WBC 1.4 L* (3.8-10.6) k/uL RBC (3.80-5.40) m/uL Hct (34.0-46.0) % Neutrophils # 1.0 L (1.3-7.7) k/uL Lymphocytes # 0.3 L (1.0-4.8) k/uL Lymphocytes # (Manual) (1.0-4.8) k/uL Metamyelocytes # (Man) (0) k/uL Myelocytes # (Manual) (0) k/uL ABG pCO2 53 H (35-45) mmHg ABG pO2 392 H (83-108) mmHg ABG HCO3 29 H (21-25) mmol/L ABG Total CO2 31 H (19-24) mmol/L ABG O2 Saturation >100.0 H (94-97) % Sodium (137-145) mmol/L Potassium (3.5-5.1) mmol/L Chloride (98-107) mmol/L Creatinine (0.52-1.04) mg/dL Glucose (74-99) mg/dL POC Glucose (mg/dL) (70-110) mg/dL Plasma Lactic Acid Dustin 2.2 H* (0.7-2.0) mmol/L Calcium (8.4-10.2) mg/dL Urine Protein (Negative) 04/10/24 04/11/24 04/11/24 Range/Units 15:37 04:30 04:30 WBC (3.8-10.6) k/uL RBC 3.71 L (3.80-5.40) m/uL Hct 33.9 L (34.0-46.0) % Neutrophils # (1.3-7.7) k/uL Lymphocytes # (1.0-4.8) k/uL Lymphocytes # (Manual) 0.95 L (1.0-4.8) k/uL Metamyelocytes # (Man) 0.30 H (0) k/uL Myelocytes # (Manual) 0.09 H (0) k/uL ABG pCO2 (35-45) mmHg ABG pO2 (83-108) mmHg ABG HCO3 (21-25) mmol/L ABG Total CO2 (19-24) mmol/L ABG O2 Saturation (94-97) % Sodium 134 L (137-145) mmol/L Potassium (3.5-5.1) mmol/L Chloride 108 H (98-107) mmol/L Creatinine (0.52-1.04) mg/dL Glucose 102 H (74-99) mg/dL POC Glucose (mg/dL) (70-110) mg/dL Plasma Lactic Acid Dustin (0.7-2.0) mmol/L Calcium 7.6 L (8.4-10.2) mg/dL Urine Protein Trace H (Negative) 04/11/24 Range/Units 04:31 WBC (3.8-10.6) k/uL RBC (3.80-5.40) m/uL Hct (34.0-46.0) % Neutrophils # (1.3-7.7) k/uL Lymphocytes # (1.0-4.8) k/uL Lymphocytes # (Manual) (1.0-4.8) k/uL Metamyelocytes # (Man) (0) k/uL Myelocytes # (Manual) (0) k/uL ABG pCO2 (35-45) mmHg ABG pO2 122 H (83-108) mmHg ABG HCO3 (21-25) mmol/L ABG Total CO2 (19-24) mmol/L ABG O2 Saturation 99.0 H (94-97) % Sodium (137-145) mmol/L Potassium (3.5-5.1) mmol/L Chloride (98-107) mmol/L Creatinine (0.52-1.04) mg/dL Glucose (74-99) mg/dL POC Glucose (mg/dL) (70-110) mg/dL Plasma Lactic Acid Dustin (0.7-2.0) mmol/L Calcium (8.4-10.2) mg/dL Urine Protein (Negative) CT scan - abdomen: report reviewed US - abdomen: report reviewed Assessment and Plan (1) Perforation of sigmoid colon due to diverticulitis Current Visit: Yes Status: Acute Priority: High Code(s): K57.20 - DVTRCLI OF LG INT W PERFORATION AND ABSCESS W/O BLEEDING SNOMED Code(s): 2818307873978062 (2) Colon adenocarcinoma Current Visit: Yes Status: Acute Priority: High Code(s): C18.9 - MALIGNANT NEOPLASM OF COLON, UNSPECIFIED SNOMED Code(s): 866907319 Plan: Perforation of the sigmoid colon due to diverticulitis -Patient is status post exploratory laparotomy with sigmoid resection and end colostomy -Currently in the ICU intubated. She is awake and oriented on ventilator. Plan for extubation later today. -Pending pathology reports for surgical resection -Defer ICU care and Surgical management to the Critical Care team and Surgery. Stage IV colon adenocarcinoma -Patient had her first cycle of treatment last week. Patient did not do well with treatment, complaints of nausea, generally feeling unwell. -Suspect the perforation 2/2 cancer/perforated diverticulitis versus complication directly related to treatment. Patient had her first cycle of chemo starting on the , just 2 weeks ago. Would not anticipate tumor regression to the point of causing a perforation. Pending pathology results and findings. -Postop, no treatment would be offered to patient until she is completely recovered from surgery and her acute situation. Not certain if patient wants to consider any more treatment. Will wait until patient has recovered adequately from her current situation before discussing the same. We will continue to follow patient's clinical course
[2024-04-11] MEDS: hydrALAZINE HCL 20 MG/ML 1 ML VIAL IVP PRN (16:21)
[2024-04-11 17:43] LABS: Glucose,Whole Blood 89 mg/dL (70-110)
--- NOTE | 2024-04-11 18:08 | P.PN ---
Progress Note - Text Progress Note Date: 04/11/24 No acute events overnight. Patient was extubated and is resting comfortable. VSS General-NAD CVS-RRR Lungs-NLB Abdomen-soft, NTND, ostomy-pink and patent 68 year old female POD #1 Exploratory Laparotomy, Berto's Procedure -NPO with ice chips. -Cefepime/Flagyl -Pain and Nausea Control -Ritchie for strict I/O's -IV fluids -Monitor Ostomy output -ICU care Jhonathan Mares DO [facility] [phone]
[2024-04-11] MEDS: CLEVIDIPINE BUTYRATE 25 MG in EMPTY BAG 1 BAG IV SCH (21:28)
[2024-04-11] MEDS: DILTIAZEM 125 MG in SODIUM CHLORIDE 0.9% 100 ML IV SCH (22:10)
[2024-04-11] MEDS: DILTIAZEM DRIP BOLUS FROM BAG 1 MG SOLN IV ONE (22:11)
[2024-04-11] MEDS ORDERED: HEPARIN SODIUM 1,000 UN/ML (10ML VL) IV PRN (22:36)
[2024-04-11] MEDS: HEPARIN SOD,PORK IN 0.45% NACL 25,000 UNIT in 0.45% NACL 1 250ML.BAG IV SCH (22:54)
[2024-04-11] MEDS: DEXTROSE 5% IN WATER 100 ML with AMIODARONE 150 MG IV ONE (23:19)
[2024-04-11] MEDS: AMIODARONE 360 MG in DEXTROSE 5% IN WATER 200 ML IV ONE (23:20)
[2024-04-12 00:14] LABS: Basophils % (A) 0 %; Eosinophils % (A) 0 %; HCT 31.1 % (34.0-46.0); HGB 10.4 gm/dL (11.4-16.0); Lymphocytes # (A) 0.5 k/uL (1.0-4.8); Lymphocytes % (A) 7 %; MCHC 33.5 g/dL (31.0-37.0); MCV 92.8 fL (80.0-100.0); Mean Platelet Volume 7.6; Monocytes # (A) 0.4 k/uL (0-1.0); Monocytes % (A) 5 %; Neutrophils # (A) 6.1 k/uL (1.3-7.7); Neutrophils % (A) 86 %; Platelet Count 176 k/uL (150-450); RBC 3.35 m/uL (3.80-5.40); RDW 13.8 % (11.5-15.5); WBC 7.1 k/uL (3.8-10.6)
[2024-04-12 00:32] LABS: Glucose,Whole Blood 97 mg/dL (70-110)
[2024-04-12 00:54] LABS: INR 1.2 (<1.2); Partial Thromboplastin Time 36.4 sec (22.0-30.0); Prothrombin Time 12.5 sec (10.0-12.5)
[2024-04-12] MEDS: AMIODARONE 450 MG in DEXTROSE 5% IN WATER 250 ML IV SCH (05:16)
[2024-04-12 06:26] LABS: Glucose,Whole Blood 100 mg/dL (70-110)
[2024-04-12 06:38] LABS: Basophils % (A) 0 %; Eosinophils # (A) 0.1 k/uL (0-0.7); Eosinophils % (A) 1 %; HCT 31.2 % (34.0-46.0); HGB 10.4 gm/dL (11.4-16.0); Hypochromasia Slight; Lymphocytes # (A) 0.5 k/uL (1.0-4.8); Lymphocytes % (A) 5 %; MCH 31.3 pg (25.0-35.0); MCHC 33.3 g/dL (31.0-37.0); MCV 93.9 fL (80.0-100.0); Monocytes # (A) 0.5 k/uL (0-1.0); Monocytes % (A) 5 %; Neutrophils # (A) 8.7 k/uL (1.3-7.7); Neutrophils % (A) 88 %; Platelet Count 190 k/uL (150-450); RBC 3.32 m/uL (3.80-5.40); RDW 13.9 % (11.5-15.5); WBC 9.9 k/uL (3.8-10.6)
[2024-04-12 07:15] LABS: INR 1.1 (<1.2); Partial Thromboplastin Time 36.1 sec (22.0-30.0); Prothrombin Time 12.1 sec (10.0-12.5)
--- NOTE | 2024-04-12 07:32 | P.CRDCN ---
History of Present Illness Consult date: 04/12/24 History of present illness: History of Present Illness: The patient is a 68-year-old female, recently diagnosed with metastatic rectal carcinoma, received chemotherapy recently and has been followed by Dr. Conte who presented with severe abdominal discomfort and was diagnosed with pneumoperitoneum, she underwent sigmoid colon resection with colostomy by Dr. Giron on April 10. She was extubated yesterday and later on during the night she had an episode of hypertension and subsequently atrial fibrillation with rapid ventricular response. She was started on IV heparin, IV Cardizem and subsequently IV amiodarone and she is back in sinus mechanism. The patient denies any prior history of atrial fibrillation. She has a history of hypertrophic obstructive cardiomyopathy by echocardiogram done few years ago but no history of obstructive CAD. She has a prior history of tobacco and alcohol intake but has stopped 3 years ago. She has borderline hypertension, no diabetes. She is complaining of generalized achiness, continues to have an NG tube with no significant discharges from her colostomy. She was started on Cleviprex for blood pressure control. At baseline according to the patient she is relatively active physically and has no significant symptoms or limitations. Medications: She is on IV amiodarone, IV heparin, IV Cleviprex Review of Systems: Respiratory: No history of asthma, bronchitis or recent cough. GI: She had abdominal discomfort, recent GI bleeding and has been diagnosed with rectal carcinoma with metastasis : No hematuria or dysuria. Nervous System: No stroke or seizure. Physical Examination: 68-year-old female, complaining of generalized discomfort, awake and alert, NG tube in place,Blood pressure 151/67, Heart rate 89 Head: Normocephalic. Eyes: Sclerae nonicteric. Neck: Good carotid upstroke, no bruit, no jugular venous distention. Lungs: Clear to auscultation. Heart: Regular rate and rhythm with extrasystole, S1-S2, no S3, no rub. Systolic ejection murmur at the base 2/6 with holosystolic murmur at the apex 3 /6. Abdomen: Soft ,tender, colostomy in place, dressing dry. Hypoactive bowel sounds. No organomegaly. Extremities: No edema, intact distal pulses. Labs: Hemoglobin 10.4, WBC 9.9. Potassium 4.2, BUN 16, creatinine 0.58. Chest x-ray with no evidence of infiltrate EKG: On admission sinus tachycardia, occasional PVCs, borderline IVCD with poor R wave progression, cannot exclude interval wall myocardial infarction Impression: 1. Status post colostomy with sigmoid resection for perforated bowel, history of metastatic rectal carcinoma 2. Paroxysmal atrial fibrillation, back in sinus mechanism 3. Hypertension not treated in the past 4. History of hypertrophic obstructive cardiomyopathy 5. Remote history of smoking and alcohol intake Plan: 1. Start oral beta-blane if agreeable with surgeon 2. Continue IV heparin and IV amiodarone for now until she is able to take oral medications on a regular basis 3. Obtain an echocardiogram with Doppler 4. Follow potassium and magnesium 5. Depending on her progress further recommendations will be made, thank you for this consult we will follow with you. Past Medical History Past Medical History: Cancer, Hypertension, Osteoarthritis (OA), Thyroid Disorder Additional Past Medical History / Comment(s): only took BP med when broke hip & took for short time only, hx. palpitations. Hemorrhoids. Pt. stated she quit smoing in october 2020. colon cancer, kidney stones, History of Any Multi-Drug Resistant Organisms: None Reported Past Surgical History: Hysterectomy, Joint Replacement Additional Past Surgical History / Comment(s): hermann hip replacements, to rt hip orif, colonoscopy Past Anesthesia/Blood Transfusion Reactions: Postoperative Nausea & Vomiting (PONV) Additional Past Anesthesia/Blood Transfusion Reaction / Comment(s): severe ponv, after colonscopy bp shot up with severe vomitting. no blood tx hx Past Psychological History: Anxiety Smoking Status: Former smoker Past Alcohol Use History: None Reported Past Drug Use History: None Reported - Past Family History Father Family Medical History: Congestive Heart Failure (CHF), Dementia, Osteoarthritis (OA) Mother Additional Family Medical History / Comment(s): Breast CA, skin CA Brother(s) Family Medical History: Cancer Additional Family Medical History / Comment(s): bone marrow cancer Medications and Allergies Home Medications Medication Instructions Recorded Confirmed Type Acetaminophen [Tylenol Arthritis] 650 mg PO Q4H PRN 03/18/24 04/10/24 History Allergies Allergy/AdvReac Type Severity Reaction Status Date / Time Penicillins Allergy Rash/Hives Verified 04/10/24 08:49 Physical Exam Vitals: Vital Signs Temp Pulse Pulse Resp BP Pulse Ox FiO2 04/12/24 07:00 97.6 F 89 15 151/67 91 L 04/12/24 06:45 90 10 L 163/76 91 L 04/12/24 06:30 87 10 L 181/72 93 L 04/12/24 06:15 96 19 177/81 95 04/12/24 06:00 91 14 170/75 94 L 04/12/24 05:45 92 18 170/75 94 L 04/12/24 05:30 89 16 163/71 95 04/12/24 05:00 85 12 160/73 94 L 04/12/24 04:30 84 15 167/76 92 L 04/12/24 04:15 84 5 L 167/76 96 04/12/24 04:00 84 16 169/77 96 04/12/24 03:45 86 16 97 04/12/24 03:30 82 15 150/69 96 04/12/24 03:15 84 12 96 04/12/24 03:00 79 15 131/72 96 04/12/24 02:45 118 H 18 96 04/12/24 02:30 151 H 17 132/74 97 04/12/24 02:15 151 H 15 132/74 96 04/12/24 02:00 151 H 19 122/69 97 04/12/24 01:45 142 H 17 122/69 96 04/12/24 01:30 147 H 8 L 115/78 96 04/12/24 01:15 146 H 17 115/78 96 04/12/24 01:00 160 H 18 96 04/12/24 00:45 137 H 16 131/92 96 04/12/24 00:30 152 H 16 135/77 96 04/12/24 00:15 149 H 15 125/68 97 04/12/24 00:09 144 H 19 97 04/12/24 00:00 151 H 16 116/74 97 04/11/24 23:45 137 H 11 L 106/75 96 04/11/24 23:30 160 H 13 112/77 95 04/11/24 23:15 176 H 9 L 135/96 95 04/11/24 23:00 176 H 9 L 110/72 97 04/11/24 22:45 174 H 15 108/62 94 L 04/11/24 22:30 172 H 12 118/67 95 04/11/24 22:15 170 H 20 131/78 95 04/11/24 22:00 189 H 20 125/73 94 L 04/11/24 21:30 103 H 22 162/76 95 04/11/24 21:00 104 H 12 183/85 97 04/11/24 20:30 112 H 22 96 04/11/24 20:00 99 19 165/84 96 04/11/24 19:41 139 H 16 04/11/24 19:30 112 H 20 97 04/11/24 19:00 102 H 16 04/11/24 18:30 107 H 9 L 169/81 96 04/11/24 18:00 105 H 10 L 96 04/11/24 17:30 105 H 10 L 158/79 96 04/11/24 17:00 140 H 19 171/87 97 04/11/24 16:30 103 H 11 L 188/92 97 04/11/24 16:00 98.7 F 96 11 L 181/84 98 04/11/24 15:30 90 13 174/82 98 04/11/24 15:00 92 10 L 185/83 98 04/11/24 14:30 93 10 L 179/85 04/11/24 14:00 104 H 15 174/86 97 04/11/24 13:30 105 H 12 169/82 98 04/11/24 13:00 96 15 169/79 98 04/11/24 12:30 105 H 11 L 188/88 04/11/24 12:00 97.7 F 101 H 17 172/79 97 04/11/24 11:45 99 9 L 166/87 98 04/11/24 11:30 97 10 L 155/75 98 04/11/24 11:15 92 16 125/80 97 04/11/24 11:00 91 14 144/68 90 L 04/11/24 10:45 91 16 151/78 98 04/11/24 10:30 96 15 135/66 98 04/11/24 10:16 30 04/11/24 10:15 97 21 100/71 97 04/11/24 10:00 87 17 99 04/11/24 09:45 89 16 117/63 99 04/11/24 09:30 90 17 99 04/11/24 09:15 90 15 102/70 99 04/11/24 09:00 90 15 99 04/11/24 08:45 92 18 89/65 99 04/11/24 08:30 94 16 131/63 99 04/11/24 08:15 95 19 131/63 99 04/11/24 08:00 98.7 F 92 17 156/72 99 40 04/11/24 07:45 97 13 111/68 99 04/11/24 07:31 40 04/11/24 07:30 86 15 99 Intake and Output 04/11/24 04/12/24 04/12/24 22:59 06:59 14:59 Intake Total 5457.278 4156.134 Output Total 260 385 Balance 5709.438 3682.134 Intake: IV 1135 1030 0.9 KVO 80 90 Invasive Line 6 10 Sodium Chloride 0.9% 1, 1040 930 000 ml @ 100 mls/hr IV . Q10H ABBEY Rx#:[id number] pressure bag 15 Intake, IV Titration 434.792 305.134 Amount Cefepime 2 gm In Sodium 100 200 Chloride 0.9% 100 ml @ 25 mls/hr IVPB Q8HR ABBEY Rx# :[id number] Clevidipine Butyrate 25 1 0.467 mg In Empty Bag 1 bag @ 1 MG/HR 2 mls/hr IV .Q24H ABBEY Rx#:[id number] Diltiazem 125 mg In 3.792 4.667 Sodium Chloride 0.9% 100 ml @ Per Protocol IV .Q0M ABBEY Rx#:[id number] Sodium Chloride 0.9% 1, 130 000 ml @ 100 mls/hr IV . Q10H ABBEY Rx#:[id number] metroNIDAZOLE-NS PMX 500 200 100 mg In Saline 1 100ml.bag @ 100 mls/hr IVPB Q8H ABBEY Rx#:[id number] Oral 120 240 Output: Gastric Drainage 50 Urine 260 335 Other: Voiding Method Indwelling Catheter Indwelling Catheter Results 04/12/24 05:56 04/11/24 20:29 Coagulation 04/11/24 04/12/24 Range/Units 23:53 05:56 PT 12.5 12.1 (10.0-12.5) sec APTT 36.4 H 36.1 H (22.0-30.0) sec CBC 12/30/24 12/31/24 Range/Units 23:53 05:56 WBC 7.1 9.9 (3.8-10.6) k/uL RBC 3.35 L 3.32 L (3.80-5.40) m/uL Hgb 10.4 L 10.4 L (11.4-16.0) gm/dL Hct 31.1 L 31.2 L (34.0-46.0) % Plt Count 176 190 (150-450) k/uL Comprehensive Metabolic Panel 04/11/24 Range/Units 20:29 Potassium 3.8 (3.5-5.1) mmol/L Current Medications Generic Name Dose Route Start Last Admin Trade Name Freq PRN Reason Stop Dose Admin Heparin Sodium (Porcine) 0 unit 04/11/24 22:36 Heparin Sodium 1,000 Un/Ml (10ml Vl) IV PER PROTOCOL PRN Low PTT Protocol Hydralazine HCl 10 mg 04/10/24 09:31 04/12/24 04:18 Hydralazine Hcl 20 Mg/Ml 1 Ml Vial IVP 10 mg Q6HR PRN Administration Blood Pressure - High Hydromorphone HCl 1 mg 04/10/24 08:12 04/12/24 03:09 Hydromorphone 1 Mg/Ml 1 Ml Syringe IVP 1 mg Q3HR PRN Administration Severe Pain (Scale 7 to 10) Sodium Chloride 1,000 mls @ 100 mls/hr 04/10/24 08:15 04/12/24 04:17 Saline 0.9% IV 130 mls/hr .Q10H ABBEY Administration Lactated Ringer's 1,000 mls @ 20 mls/hr 04/10/24 09:30 04/11/24 11:33 Lactated Ringers IV Not Given .Q24H ABBEY Metronidazole 500 mg/ IV 100 mls @ 100 mls/hr 04/10/24 14:00 04/12/24 05:31 Solution IVPB 100 mls/hr Q8H ABBEY Administration Protocol Cefepime HCl 2 gm/ Sodium 100 mls @ 25 mls/hr 04/10/24 16:00 04/11/24 23:22 Chloride IVPB 25 mls/hr Q8HR ABBEY Administration Protocol Propofol 1,000 mg/ IV Solution 100 mls @ 3.552 mls/hr 04/10/24 13:30 04/11/24 11:30 IV 0 mcg/kg/min .Q24H ABBEY 0 mls/hr Titration Protocol 15 MCG/KG/MIN Norepinephrine Bitartrate 8 mg 258 mls @ 2.291 mls/hr 04/10/24 20:00 04/11/24 21:14 / Sodium Chloride IV Not Given .Q24H ABBEY Protocol 0.03 MCG/KG/MIN Clevidipine 25 mg/ IV Solution 50 mls @ 2 mls/hr 04/11/24 21:00 04/12/24 06:27 IV 2 mg/hr .Q24H ABBEY 4 mls/hr Titration Protocol 1 MG/HR Heparin Sodium/Sodium Chloride 250 mls @ 6.24 mls/hr 04/11/24 22:45 04/11/24 22:54 25,000 unit/ Sodium Chloride IV 12 units/kg/hr .Q24H ABBEY 6.24 mls/hr Administration Protocol 12 UNITS/KG/HR Amiodarone HCl 450 mg/ 250 mls @ 16.667 mls/hr 04/12/24 05:30 04/12/24 05:16 Dextrose/Water IV 04/12/24 23:29 0.5 mg/min .Q15H ABBEY 16.667 mls/hr Administration Protocol 0.5 MG/MIN Miscellaneous Information 1 each 04/10/24 15:04 Potassium Replacement Protocol 1 Each Misc MISCELLANE DAILY PRN Per Protocol Protocol Miscellaneous Information 1 each 04/10/24 15:05 Magnesium Replacement Protocol 1 Each Misc MISCELLANE DAILY PRN Per Protocol Protocol Naloxone HCl 0.2 mg 04/10/24 16:41 Naloxone 0.4 Mg/Ml 1 Ml Vial IV Q2M PRN Opioid Reversal Ondansetron HCl 4 mg 04/10/24 08:12 04/11/24 08:00 Ondansetron 4 Mg/2 Ml Vial IVP 4 mg Q8HR PRN Administration Nausea And Vomiting Pantoprazole Sodium 40 mg 04/10/24 09:00 04/11/24 08:00 Pantoprazole 40 Mg/10 Ml Vial IV 40 mg DAILY ABBEY Administration Intake and Output 04/11/24 04/12/24 04/12/24 22:59 06:59 14:59 Intake Total 1332.756 2054.134 Output Total 260 385 Balance 6440.116 4665.134 Intake: IV 1135 1030 0.9 KVO 80 90 Invasive Line 6 10 Sodium Chloride 0.9% 1, 1040 930 000 ml @ 100 mls/hr IV . Q10H ABBEY Rx#:[id number] pressure bag 15 Intake, IV Titration 434.792 305.134 Amount Cefepime 2 gm In Sodium 100 200 Chloride 0.9% 100 ml @ 25 mls/hr IVPB Q8HR ABBEY Rx# :[id number] Clevidipine Butyrate 25 1 0.467 mg In Empty Bag 1 bag @ 1 MG/HR 2 mls/hr IV .Q24H ABBEY Rx#:[id number] Diltiazem 125 mg In 3.792 4.667 Sodium Chloride 0.9% 100 ml @ Per Protocol IV .Q0M ABBEY Rx#:[id number] Sodium Chloride 0.9% 1, 130 000 ml @ 100 mls/hr IV . Q10H ABBEY Rx#:[id number] metroNIDAZOLE-NS PMX 500 200 100 mg In Saline 1 100ml.bag @ 100 mls/hr IVPB Q8H ABBEY Rx#:[id number] Oral 120 240 Output: Gastric Drainage 50 Urine 260 335 Other: Voiding Method Indwelling Catheter Indwelling Catheter 04/12/24 05:56 04/11/24 20:29
--- NOTE | 2024-04-12 07:54 | XR ---
EXAMINATION TYPE: XR chest 1V DATE OF EXAM: 04/12/2024 3:59 AM COMPARISON: 04/11/2024 CLINICAL INDICATION: Female, 68 years old with history of pneumonia, TECHNIQUE: XR chest 1V view(s) obtained. FINDINGS: The heart size is normal. The pulmonary vasculature is normal. Mild infiltrate may be along the left diaphragm. Correlate for atelectasis. There is a port on the right with the tip in the mid superior vena cava region. Right central venous catheter is present with the tip in the distal superior vena cava region. Nasogastric tube transverse s the thorax with the tip in the abdomen. Endotracheal tube is been removed. IMPRESSION: 1. Mild atelectatic type changes left base. 2. Lines and catheters discussed above [facility], , 04/12/2024 7:51 AM
--- NOTE | 2024-04-12 08:08 | P.PN ---
Progress Note - Text Progress Note Date: 04/12/24 Patient had atrial fibrillation with RVR overnight. General-NAD CVS-RRR Lungs-NLB Abdomen-soft, NTND, ostomy-pink and patent 68 year old female POD #1 Exploratory Laparotomy, Berto's Procedure -NPO with ice chips. -Cefepime/Flagyl -Pain and Nausea Control -Ritchie for strict I/O's -IV fluids -Monitor Ostomy output -Cardiology Recs for A-Fib -ICU care Jhonathan Mares DO [facility] [phone]
[2024-04-12 08:22] LABS: African American GFR (CKD) >90 (>60 ml/min/1.73 sqM); Anion Gap 4 mmol/L; Blood Urea Nitrogen 18 mg/dL (7-17); Calcium 8.4 mg/dL (8.4-10.2); Carbon Dioxide 21 mmol/L (22-30); Chloride 112 mmol/L (98-107); Glucose 100 mg/dL (74-99); Magnesium 2.1 mg/dL (1.6-2.3); Non-African American GFR(CKD) >90 (>60 ml/min/1.73 sqM); Potassium 3.3 mmol/L (3.5-5.1); Sodium 137 mmol/L (137-145)
[2024-04-12 09:48] LABS: T4, Free (Free Thyroxine) 1.72 ng/dL (0.78-2.19)
[2024-04-12] MEDS: POTASSIUM CHLORIDE ER 20 MEQ TAB.ER PO STA (09:56)
[2024-04-12] MEDS ORDERED: Potassium Replacement Protocol 1 EACH MISC MISCELLANE PRN ×3 (09:57→16:32)
[2024-04-12] MEDS: METOPROLOL TARTRATE 25 MG TAB PO SCH (10:00)
[2024-04-12] MEDS ORDERED: POTASSIUM CHLORIDE ER 20 MEQ TAB.ER PO SCH (10:00)
[2024-04-12] MEDS: POTASSIUM BICARBONATE/CIT AC 20 MEQ TABLET.EFF NG-TUBE SCH ×2 (10:10→17:49)
--- NOTE | 2024-04-12 11:41 | P.PN ---
Subjective Progress Note Date: 04/12/24 Principal diagnosis: reason for consult: other (ICU management) This is a 68-year-old female with history of metastatic rectal cancer presented to the ER 04/10 mostly with abdominal pain. Patient has been receiving chemotherapy for her rectal cancer, her first treatment was March 29. Patient has not been feeling well since March 29, presented to the ER with few days history of abdominal pain, lower abdominal pain. Patient had some nausea, no vomiting. No bowel movement for the few days, patient noted no fever, no chills, CT of the abdomen pelvis showed pneumoperitoneum and possible perforation of the ascending colon. Patient underwent exploratory laparotomy sigmoid colon resection with end colostomy. Patient was found to have perforated diverticulitis of the sigmoid colon. Postoperatively, patient was sent to the ICU, intubated mechanically ventilated, she is presently on assist- control rate of 16, tidal volume increased to 350, FiO2 100% and PEEP of 5. ABG on FiO2 of 100% showed a pO2 of 392, pCO2 of 53 pH of 7.35, hence vent adjustment was made and she was on FiO2 of 40%, rate of 16, and tidal volume of 350. Patient is hemodynamically stable, not requiring any pressors, she is however requiring fluids for relatively marginal blood pressure and tachycardia. Her electrolytes showed low potassium of 3.0 that is being addressed accordingly bicarb is 27 renal profile is normal WBC count is 1.4 hemoglobin 13.8. Her WBC count on admission was 7.5 dropped down significantly to 1.4. Antibiotics mrianda, patient received cefepime, she is also on metronidazole, patient could not be placed on Zosyn mostly because of her penicillin allergy. On her initial presentation she received Levaquin she also received a Rocephin. 04/11/2024 patient seen and examined at bedside. Patient still in the ICU intubated, sedated and mechanically ventilated. Ventilator settings are assist- control with a rate of 16, tidal volume 350, PEEP of 5 with FiO2 40%. No acute events overnight. Currently drips are normal saline 0.9% with a rate of 130 cc/h, propofol with a rate of 40 and Levophed of 0.02 mcg/kg/min. Chest x-ray shows atelectasis at the right lung base with ET tube, NG tube, and central venous catheters in place. ABG Shows CO2 22, CO2 41 and pH of 7.36. Other labs today show WBC 4.3, hemoglobin 11.5, platelet count 1 59,000, sodium 134, pota ssium 4.2 BUN 16, creatinine 0.58 glucose 102, calcium 7.6, phosphorus 3, magnesium 2.1 04/12/2024 patient seen and examined at bedside. Patient still in the ICU and was extubated around 11 AM yesterday at 04/11. Overnight, patient had an episode of A-fib with rapid ventricular response with associated hypotension. Currently on IV fluids normal saline at 100 cc, amiodarone IV at 0.5 mg/min, he xiao drip at 12 units/kg/h, and Cardizem drip at 1 mg/h. Chest x-ray today shows mild atelectatic type changes at the left base with central venous catheter, NG tube in place. Labs today showed WBC 9.9 hemoglobin 10.4 platelet count 190,000 PTT 36.1 PTT 12.1 INR 1.1 sodium 137 potassium 3.3 chloride 112 bicarb 21 BUN 18 creatinine 0.62 glucose 100 calcium 8.4 magnesium 2.1 Review of systems: Could not assess Pertinent imaging and labs reviewed. Physical examination: Vital signs reviewed General: non toxic, no distress, on room air Derm: no unusual rashes/lesions, warm Head: atraumatic, normocephalic, symmetric Eyes: EOMI, anicteric sclera, pupils equal round reactive to light ENT: Nose and ears atraumatic Neck: No cervical lymphadenopathy, trachea midline, supple Mouth: no lip lesion, mucus membranes moist Cardiovascular: S1S2 irregularly irregular, no murmur Lungs: Rhonchi at right basilar area, no rales, no accessory muscle use, central venous cath noted in right upper chest area Abdominal: soft, nontender to palpation, no guarding, colostomy bag seen on the left lower quadrant with output with stoma clean no erythema or swelling noted. Noted midline incision with dressing that is clean and dry and no erythema on surrounding skin Ext: no gross muscle atrophy, no contractures, positive dorsalis pedis pulse bilateral, no edema Neuro: Alert and oriented x 3, no focal neurologic deficits Psych: Appropriate mood and affect Assessment/Plan: Active problems: Atrial fibrillation with rapid ventricular response with hemodynamic instability Hypokalemia Pneumoperitoneum, status post exploratory laparotomy and sigmoid colon resection with end colostomy postoperative day #2 Acute hypoxic respiratory failure secondary to above, resolved Abdominal sepsis, resolved leukopenia secondary to sepsis, resolved Lactic acidosis secondary to abdominal sepsis, resolved Chronic conditions: History of metastatic rectal carcinoma patient has been on chemotherapy recently Recommendations: Cardiac monitoring Supportive oxygenation as needed Continue tube feeding with vital HP to goal rate Switch IV fluids to lactated Ringer's at 50 cc/h Continue IV Cefepime and Flagyl for empiric coverage. Currently on day 3 Potassium repletion per protocol Blood cultures pending Will monitor daily labs electrolytes and CBC Will monitor daily x-rays of the chest Cardiology following. Echocardiogram and TSH pending. Patient placed on IV amiodarone, IV heparin, and IV Cleviprex. Lopressor recommender provided patient can tolerate PO meds DVT prophylaxis: IV heparin GI prophylaxis: Protonix 40 mg IV daily Prognosis: depending on clinical course. Becki Navarrete MD PGY-1/Senior Media Director Dictation was produced using [employer] dictation software. please excuse any grammatical, word or spelling errors. Objective - Vital Signs Vital signs: Vital Signs Temp 97.6 F 04/12/24 07:00 Pulse 89 04/12/24 07:00 Resp 15 04/12/24 07:00 BP 151/67 04/12/24 07:00 Pulse Ox 91 L 04/12/24 07:00 FiO2 30 04/11/24 10:16 Intake & Output 04/11/24 04/12/24 04/12/24 18:59 06:59 18:59 Intake Total 3196.098 3400.926 53.976 Output Total 280 535 Balance 5860.850 5590.926 53.976 Weight 52 kg Intake: IV 1728 1593 0.9 KVO 120 130 Invasive Line 6 10 Sodium Chloride 0.9% 1, 1560 1450 000 ml @ 100 mls/hr IV . Q10H ABBEY Rx#:[id number] pressure bag 48 3 Intake, IV Titration 260.163 539.926 53.976 Amount Cefepime 2 gm In Sodium 100 200 Chloride 0.9% 100 ml @ 25 mls/hr IVPB Q8HR ABBEY Rx# :[id number] Clevidipine Butyrate 25 1.467 mg In Empty Bag 1 bag @ 1 MG/HR 2 mls/hr IV .Q24H ABBEY Rx#:[id number] Diltiazem 125 mg In 8.459 Sodium Chloride 0.9% 100 ml @ Per Protocol IV .Q0M ABBEY Rx#:[id number] Heparin Sod,Pork in 0.45% 53.976 NaCl 25,000 unit In 0.45 % NaCl 1 250ml.bag @ 12 UNITS/KG/HR 6.24 mls/hr IV .Q24H ABBEY Rx#: [id number] Norepinephrine 8 mg In 12.650 Sodium Chloride 0.9% 250 ml @ 0.03 MCG/KG/MIN 2. 291 mls/hr IV .Q24H ABBEY Rx#:[id number] Sodium Chloride 0.9% 1, 130 000 ml @ 100 mls/hr IV . Q10H ABBEY Rx#:[id number] metroNIDAZOLE-NS PMX 500 100 200 mg In Saline 1 100ml.bag @ 100 mls/hr IVPB Q8H ABBEY Rx#:[id number] propofoL 1,000 mg In 47.513 Empty Bag 1 bag @ 15 MCG/ KG/MIN 3.552 mls/hr IV . Q24H ABBEY Rx#:[id number] Oral 360 Output: Gastric Drainage 50 Urine 280 485 Other: Voiding Method Indwelling Catheter Indwelling Catheter ABP, PAP, CO, CI - Last Documented Arterial Blood Pressure 122/51 - Labs CBC & Chem 7: 04/12/24 05:56 04/12/24 07:45 Labs: Abnormal Lab Results - Last 24 Hours (Table) 04/11/24 04/11/24 04/12/24 Range/Units 23:53 23:53 05:56 RBC 3.35 L 3.32 L (3.80-5.40) m/uL Hgb 10.4 L 10.4 L (11.4-16.0) gm/dL Hct 31.1 L 31.2 L (34.0-46.0) % Neutrophils # 8.7 H (1.3-7.7) k/uL Lymphocytes # 0.5 L 0.5 L (1.0-4.8) k/uL INR 1.2 H (<1.2) APTT 36.4 H (22.0-30.0) sec 04/12/24 Range/Units 05:56 RBC (3.80-5.40) m/uL Hgb (11.4-16.0) gm/dL Hct (34.0-46.0) % Neutrophils # (1.3-7.7) k/uL Lymphocytes # (1.0-4.8) k/uL INR (<1.2) APTT 36.1 H (22.0-30.0) sec Microbiology - Last 24 Hours (Table) 04/10/24 06:21 Blood Culture - Preliminary Blood
[2024-04-12 11:45] LABS: Glucose,Whole Blood 103 mg/dL (70-110)
[2024-04-12] MEDS: LACTATED RINGERS 1,000 ML IV SCH (11:55)
--- NOTE | 2024-04-12 12:11 | CA ---
Transthoracic Echo Report Name: Kaitlyn Alvarez Age: 68 Gender: F : 1955 Exam Date: 04/12/2024 07:47 Exam Location: [facility] Ht (in): 60 Wt (lb): 114 Ordering Physician: Jm Milton MD ([id number]) Attending/Referring Phys: Christian Education Director Anu Velasco RDCS Procedure CPT: Indications: NOS afibrvr Cardiac Hx: Technical Quality: Good Contrast 1: Total Dose (mL): Contrast 2: Total Dose (mL): MEASUREMENTS (Male / Female) Normal Values 2D ECHO LV Diastolic Diameter PLAX 4.5 cm 4.2 - 5.9 / 3.9 - 5.3 cm LV Systolic Diameter PLAX 2.9 cm IVS Diastolic Thickness 0.9 cm 0.6 - 1.0 / 0.6 - 0.9 cm LVPW Diastolic Thickness 1.0 cm 0.6 - 1.0 / 0.6 - 0.9 cm LV Relative Wall Thickness 0.4 LVOT Diameter 2.0 cm Aortic Root Diameter 3.3 cm LV Diastolic Volume MOD BP 96.7 cm??? 67 - 155 / 56 - 104 cm??? LV Systolic Volume MOD BP 32.6 cm??? 22 - 58 / 19 - 49 cm??? LV Ejection Fraction MOD BP 66.3 % >= 55 % LV Cardiac Index MOD BP 4400.3 cm???/min???m??? LV Diastolic Volume MOD 4C 91.4 cm??? LV Systolic Volume MOD 4C 35.7 cm??? LV Ejection Fraction MOD 4C 60.9 % LV Cardiac Index MOD 4C 3820.3 cm???/min???m??? LV Diastolic Length 4C 7.4 cm LV Systolic Length 4C 6.4 cm LV Diastolic Volume MOD 2C 99.5 cm??? LV Systolic Volume MOD 2C 30.6 cm??? LV Ejection Fraction MOD 2C 69.3 % LV Cardiac Index MOD 2C 4734.6 cm???/min???m??? LV Diastolic Length 2C 7.7 cm LV Systolic Length 2C 6.4 cm LA Volume 113.2 cm??? 18 - 58 / 22 - 52 cm??? LA Volume Index 76.2 cm???/m??? 16 - 28 cm???/m??? Ascending Aorta Diameter 3.8 cm DOPPLER AV Peak Velocity 251.9 cm/s AV Peak Gradient 25.4 mmHg AV Mean Velocity 192.7 cm/s AV Mean Gradient 15.9 mmHg AV Velocity Time Integral 49.3 cm LVOT Peak Velocity 144.4 cm/s LVOT Peak Gradient 8.3 mmHg LVOT Velocity Time Integral 25.1 cm LVOT Stroke Volume 79.1 cm??? LVOT Stroke Volume Index 53.8 ml/m??? LVOT Cardiac Index 5429.8 cm???/min???m??? AV Area Cont Eq vti 1.6 cm??? AV Area Cont Eq pk 1.8 cm??? MV Peak Velocity 145.8 cm/s MV Peak Gradient 8.5 mmHg MV Mean Velocity 96.2 cm/s MV Mean Gradient 4.1 mmHg MV Velocity Time Integral 40.2 cm MV Area PHT 4.3 cm??? MR Peak Velocity 724.0 cm/s MR Peak Gradient 209.7 mmHg Mitral E Point Velocity 86.3 cm/s Mitral A Point Velocity 77.7 cm/s Mitral E to A Ratio 1.1 MV Deceleration Time 177.8 ms TR Peak Velocity 288.0 cm/s TR Peak Gradient 33.2 mmHg Right Atrial Pressure 10.0 mmHg Pulmonary Artery Systolic Pressu 43.2 mmHg Right Ventricular Systolic Press 43.2 mmHg PV Peak Velocity 99.9 cm/s PV Peak Gradient 4.0 mmHg FINDINGS Left Ventricle Left ventricular ejection fraction is estimated at 60-65 %. Mildly increased posterior wall thickness. Left ventricular cavity size normal. No obvious regional wall motion abnormalities. Mid cavitary gradient 178mmHg. Right Ventricle Normal right ventricular size and function. Mild pulmonary hypertension. Right Atrium Right atrial dilatation. Left Atrium Severely increased left atrial volume. Moderately increased left atrial area. Mitral Valve Mitral valve thickened. Prolapse of the posterior mitral valve leaflet. Mild mitral stenosis. Moderate to severe mitral regurgitation. Systolic flow reversal in the pulmonary veins. Systolic anterior motion of the anterior mitral valve leaflet. Aortic Valve Trileaflet aortic valve. No aortic valve stenosis or regurgitation. Tricuspid Valve Structurally normal tricuspid valve. No tricuspid stenosis. Mild tricuspid regurgitation. Pulmonic Valve Structurally normal pulmonic valve. No pulmonic stenosis. No pulmonic regurgitation. Pericardium No pericardial effusion. Aorta Normal size aortic root and proximal ascending aorta. CONCLUSIONS Hyperdynamic LV with an EF of 60 to 65% with mid cavity gradient up to 178 mmHg Mildly thickened anterior and posterior mitral leaflets with evidence of systolic anterior motion and moderate to severe MR Trileaflet aortic valve with no stenosis or regurgitation Mild pulmonary hypertension No pericardial effusion Previewed by: Dr. Jm Milton MD (Electronically Signed) Final Date: 12 April 2024 12:10
--- NOTE | 2024-04-12 15:27 | P.PN ---
Subjective Progress Note Date: 04/12/24 patient is a 68-year-old lady with past medical history significant for metastatic rectal cancer brought to the ER for evaluation of lower abdominal pain. Patient that she has been not been feeling well for the last few days. Patient stated that she was having lower quad abdominal pain which was generali zed, nonradiating, no aggravating or leaving factors associated abdominal pain. Patient also complaining of constipation and has not had a bowel movement in a number of days. There was no complaint of fever or chills. There was complaint of nausea but no vomiting. Patient stated she recently started chemotherapy. Because of these symptoms, patient presented to the ER Initial lab work done in the ER showed WBC 7.5, hemoglobin 9.5, platelet count 335, sodium 130, potassium 3, BUN 14, creatinine 0.53, lactate 4.5 EKG done in the ER showed heart rate of 116 , no ST segment elevation or depres stefania seen, no T-wave inversions seen. CT abdominal pelvis done showed large pneumoperitoneum, mild circumferential wall thickening of a short segment of ascending colon and proximal sigmoid colon in associated with diverticula suggest diverticulitis versus colitis Patient admitted to internal medicine service 04/11. Patient seen and examined. Patient currently intubated, opening eyes and following commands. 04/12. Patient seen examined. Patient is currently extubated. Alert, currently has NG tube in. Lab work done this morning showed WBC 9.9, hemoglobin 10.4, platelet count 190, sodium 137, potassium 3.3, BUN 18, creatinine 0.62, glucose 100. Patient went to [facility] overnight, currently on amiodarone. REVIEW OF SYSTEMS: Denies any chest pain. Complaining of abdominal pain. PHYSICAL EXAMINATION: GENERAL: The patient is alert HEENT: Pupils are round and equally reacting to light. EOMI. No scleral icterus. No conjunctival pallor. Normocephalic, atraumatic. No pharyngeal erythema. No thyromegaly. CARDIOVASCULAR: S1 and S2 present. No murmurs, rubs, or gallops. PULMONARY: Chest is clear to auscultation, no wheezing or crackles. ABDOMEN: Tenderness, surgical incision seen, ostomy seen no palpable organomegaly. MUSCULOSKELETAL: No joint swelling or deformity. EXTREMITIES: No cyanosis, clubbing, or pedal edema. NEUROLOGICAL: Moving all extremities SKIN: No rashes. Assessment and plan Pneumoperitoneum Sepsis A-fib with RVR Acute hypoxic respiratory failure Acute sigmoid colon perforation Acute diverticulitis Hyponatremia Hypokalemia Lactic acidosis History of rectal cancer Monitor vital signs Monitor CBC Monitor CMP Continue telemetry monitoring status post exploratory laparotomy and sigmoid colon resection with end colostomy Continue IV fluids Continue amiodarone Continue IV heparin Aggressive bronchopulmonary hygiene Continue IV cefepime, Flagyl Pulmonology following Surgery following ID following Labs and medication were reviewed.. Continue same treatment. Continue with symptomatic treatment. Resume home medication. Monitor labs and vitals. DVT and GI prophylaxis. Further recommendations as per clinical course of the patient Dictation was produced using [employer] dictation software. please excuse any grammatical, word or spelling errors. Objective - Vital Signs Vital signs: Vital Signs Temp 98.1 F 04/12/24 12:00 Pulse 71 04/12/24 15:00 Resp 10 L 04/12/24 15:00 BP 147/66 04/12/24 15:00 Pulse Ox 97 04/12/24 15:00 FiO2 30 04/11/24 10:16 Intake & Output 04/11/24 04/12/24 04/12/24 18:59 06:59 18:59 Intake Total 9316.449 2372.926 763.176 Output Total 280 535 420 Balance 7280.342 4148.926 343.176 Weight 52 kg 52 kg Intake: IV 1728 1593 580 0.9 KVO 120 130 80 Invasive Line 6 10 Lactated Ringers 1,000 ml 150 @ 50 mls/hr IV .Q20H [facility] Rx#:[id number] Sodium Chloride 0.9% 1, 1560 1450 350 000 ml @ 100 mls/hr IV . Q10H [facility] Rx#:[id number] pressure bag 48 3 Intake, IV Titration 260.163 539.926 63.176 Amount Cefepime 2 gm In Sodium 100 200 Chloride 0.9% 100 ml @ 25 mls/hr IVPB Q8HR [facility] Rx# :[id number] Clevidipine Butyrate 25 1.467 9.2 mg In Empty Bag 1 bag @ 1 MG/HR 2 mls/hr IV .Q24H [facility] Rx#:[id number] Diltiazem 125 mg In 8.459 Sodium Chloride 0.9% 100 ml @ Per Protocol IV .Q0M [facility] Rx#:[id number] Heparin Sod,Pork in 0.45% 53.976 NaCl 25,000 unit In 0.45 % NaCl 1 250ml.bag @ 12 UNITS/KG/HR 6.24 mls/hr IV .Q24H [facility] Rx#: [id number] Norepinephrine 8 mg In 12.650 Sodium Chloride 0.9% 250 ml @ 0.03 MCG/KG/MIN 2. 291 mls/hr IV .Q24H [facility] Rx#:[id number] Sodium Chloride 0.9% 1, 130 000 ml @ 100 mls/hr IV . Q10H [facility] Rx#:[id number] metroNIDAZOLE-NS PMX 500 100 200 mg In Saline 1 100ml.bag @ 100 mls/hr IVPB Q8H [facility] Rx#:[id number] propofoL 1,000 mg In 47.513 Empty Bag 1 bag @ 15 MCG/ KG/MIN 3.552 mls/hr IV . Q24H [facility] Rx#:[id number] Oral 360 Other 120 Output: Gastric Drainage 50 Urine 280 485 420 Other: Voiding Method Indwelling Catheter Indwelling Catheter Indwelling Catheter ABP, PAP, CO, CI - Last Documented Arterial Blood Pressure 122/51 - Labs CBC & Chem 7: 04/12/24 05:56 04/12/24 07:45 Labs: Abnormal Lab Results - Last 24 Hours (Table) 04/11/24 04/11/24 04/12/24 Range/Units 23:53 23:53 05:56 RBC 3.35 L 3.32 L (3.80-5.40) m/uL Hgb 10.4 L 10.4 L (11.4-16.0) gm/dL Hct 31.1 L 31.2 L (34.0-46.0) % Neutrophils # 8.7 H (1.3-7.7) k/uL Lymphocytes # 0.5 L 0.5 L (1.0-4.8) k/uL INR 1.2 H (<1.2) APTT 36.4 H (22.0-30.0) sec Potassium (3.5-5.1) mmol/L Chloride (98-107) mmol/L Carbon Dioxide (22-30) mmol/L BUN (7-17) mg/dL Glucose (74-99) mg/dL TSH (0.465-4.680) mIU/L 04/12/24 04/12/24 04/12/24 Range/Units 05:56 07:45 14:29 RBC (3.80-5.40) m/uL Hgb (11.4-16.0) gm/dL Hct (34.0-46.0) % Neutrophils # (1.3-7.7) k/uL Lymphocytes # (1.0-4.8) k/uL INR (<1.2) APTT 36.1 H 48.9 H (22.0-30.0) sec Potassium 3.3 L (3.5-5.1) mmol/L Chloride 112 H (98-107) mmol/L Carbon Dioxide 21 L (22-30) mmol/L BUN 18 H (7-17) mg/dL Glucose 100 H (74-99) mg/dL TSH <0.015 L (0.465-4.680) mIU/L Microbiology - Last 24 Hours (Table) 04/10/24 06:21 Blood Culture - Preliminary Blood
[2024-04-12 17:46] LABS: Glucose,Whole Blood 105 mg/dL (70-110)
[2024-04-13 05:26] LABS: Glucose,Whole Blood 92 mg/dL (70-110)
[2024-04-13 06:49] LABS: African American GFR (CKD) >90 (>60 ml/min/1.73 sqM); Anion Gap 7 mmol/L; Blood Urea Nitrogen 19 mg/dL (7-17); Calcium 8.7 mg/dL (8.4-10.2); Carbon Dioxide 18 mmol/L (22-30); Chloride 111 mmol/L (98-107); Glucose 90 mg/dL (74-99); Non-African American GFR(CKD) >90 (>60 ml/min/1.73 sqM); Sodium 136 mmol/L (137-145)
[2024-04-13 07:46] LABS: HCT 30.5 % (34.0-46.0); HGB 10.1 gm/dL (11.4-16.0); Hypochromasia Slight; MCH 31.6 pg (25.0-35.0); MCHC 33.3 g/dL (31.0-37.0); MCV 95.1 fL (80.0-100.0); Mean Platelet Volume 8.4; Platelet Count 193 k/uL (150-450); RDW 14.6 % (11.5-15.5); WBC 12.4 k/uL (3.8-10.6)
--- NOTE | 2024-04-13 08:30 | XR ---
EXAMINATION TYPE: XR chest 1V portable DATE OF EXAM: 04/13/2024 5:40 AM COMPARISON: 04/12/2024 CLINICAL INDICATION: Female, 68 years old with history of Tube placement, previous abnormal chest TECHNIQUE: XR chest 1V portable view(s) obtained. FINDINGS: The heart size is normal. The pulmonary vasculature is normal. There is interval development of mild right lower lobe infiltrate. Correlate for atelectasis. Minimal left pleural effusion may be present. Endotracheal tube has been removed. Nasogastric tube tip is in the left upper quadrant of the abdomen . A right central venous catheter tip is in the mid superior vena cava region. A port catheter on the right has its tip in the mid to distal superior vena cava region IMPRESSION: 1. Interval development of some mild infiltrate at the right base. Correlate for atelectasis. 2. Small left pleural effusion not excluded. 3. Multiple lines and catheters discussed above [facility], Workstation: [facility], 04/13/2024 8:28 AM
--- NOTE | 2024-04-13 09:18 | P.PN ---
Subjective Progress Note Date: 04/12/24 Principal diagnosis: Reason for follow-up is parotitis perforated diverticulitis Patient is a 68-year-old female with a past medical history significant for hypertension osteoarthritis hypothyroidism, metastatic rectal cancer previous history of smoking presenting to the hospital for evaluation of abdominal pain, the patient CT has been suggestive of pneumoperitoneum with diagnosis of perforated sigmoid diverticulitis patient is status post laparotomy sigmoid resection and end colostomy. On today's evaluation that is 04/12/2024, Patient is afebrile this morning p atient denies having any chest pain shortness of breath did have a mild dry cough, the patient is currently on 2 L, oxygen patient abdominal pain is currently controlled some nausea but no vomiting. Patient white count is 9.9 creatinine 0.62 Objective - Vital Signs Vital signs: Vital Signs Temp 97.6 F 04/12/24 07:00 Pulse 68 04/12/24 11:45 Resp 17 04/12/24 11:45 BP 133/77 04/12/24 11:45 Pulse Ox 97 04/12/24 11:45 FiO2 30 04/11/24 10:16 Intake & Output 04/11/24 04/12/24 04/12/24 18:59 06:59 18:59 Intake Total 9325.945 4494.926 583.176 Output Total 280 535 320 Balance 1204.460 8767.926 263.176 Weight 52 kg Intake: IV 1728 1593 400 0.9 KVO 120 130 50 Invasive Line 6 10 Sodium Chloride 0.9% 1, 1560 1450 350 000 ml @ 100 mls/hr IV . Q10H [facility] Rx#:[id number] pressure bag 48 3 Intake, IV Titration 260.163 539.926 63.176 Amount Cefepime 2 gm In Sodium 100 200 Chloride 0.9% 100 ml @ 25 mls/hr IVPB Q8HR [facility] Rx# :[id number] Clevidipine Butyrate 25 1.467 9.2 mg In Empty Bag 1 bag @ 1 MG/HR 2 mls/hr IV .Q24H [facility] Rx#:[id number] Diltiazem 125 mg In 8.459 Sodium Chloride 0.9% 100 ml @ Per Protocol IV .Q0M [facility] Rx#:[id number] Heparin Sod,Pork in 0.45% 53.976 NaCl 25,000 unit In 0.45 % NaCl 1 250ml.bag @ 12 UNITS/KG/HR 6.24 mls/hr IV .Q24H [facility] Rx#: [id number] Norepinephrine 8 mg In 12.650 Sodium Chloride 0.9% 250 ml @ 0.03 MCG/KG/MIN 2. 291 mls/hr IV .Q24H [facility] Rx#:[id number] Sodium Chloride 0.9% 1, 130 000 ml @ 100 mls/hr IV . Q10H [facility] Rx#:[id number] metroNIDAZOLE-NS PMX 500 100 200 mg In Saline 1 100ml.bag @ 100 mls/hr IVPB Q8H [facility] Rx#:[id number] propofoL 1,000 mg In 47.513 Empty Bag 1 bag @ 15 MCG/ KG/MIN 3.552 mls/hr IV . Q24H [facility] Rx#:[id number] Oral 360 Other 120 Output: Gastric Drainage 50 Urine 280 485 320 Other: Voiding Method Indwelling Catheter Indwelling Catheter ABP, PAP, CO, CI - Last Documented Arterial Blood Pressure 122/51 - Exam GENERAL DESCRIPTION: An elderly female lying in bed in no distress RESPIRATORY SYSTEM: Unlabored breathing , decreased breath sounds at bases HEART: S1 S2 regular rate and rhythm , ABDOMEN: Soft , mild tenderness EXTREMITIES: No edema feet - Labs CBC & Chem 7: 04/13/24 05:38 04/13/24 05:38 Labs: Abnormal Lab Results - Last 24 Hours (Table) 04/11/24 04/11/24 04/12/24 Range/Units 23:53 23:53 05:56 RBC 3.35 L 3.32 L (3.80-5.40) m/uL Hgb 10.4 L 10.4 L (11.4-16.0) gm/dL Hct 31.1 L 31.2 L (34.0-46.0) % Neutrophils # 8.7 H (1.3-7.7) k/uL Lymphocytes # 0.5 L 0.5 L (1.0-4.8) k/uL INR 1.2 H (<1.2) APTT 36.4 H (22.0-30.0) sec Potassium (3.5-5.1) mmol/L Chloride (98-107) mmol/L Carbon Dioxide (22-30) mmol/L BUN (7-17) mg/dL Glucose (74-99) mg/dL TSH (0.465-4.680) mIU/L 04/12/24 04/12/24 Range/Units 05:56 07:45 RBC (3.80-5.40) m/uL Hgb (11.4-16.0) gm/dL Hct (34.0-46.0) % Neutrophils # (1.3-7.7) k/uL Lymphocytes # (1.0-4.8) k/uL INR (<1.2) APTT 36.1 H (22.0-30.0) sec Potassium 3.3 L (3.5-5.1) mmol/L Chloride 112 H (98-107) mmol/L Carbon Dioxide 21 L (22-30) mmol/L BUN 18 H (7-17) mg/dL Glucose 100 H (74-99) mg/dL TSH <0.015 L (0.465-4.680) mIU/L Microbiology - Last 24 Hours (Table) 04/10/24 06:21 Blood Culture - Preliminary Blood Assessment and Plan (1) Sepsis Current Visit: Yes Status: Acute Code(s): A41.9 - SEPSIS, UNSPECIFIED ORGANI SM SNOMED Code(s): 52770747 (2) Peritonitis Current Visit: Yes Status: Acute Code(s): K65.9 - PERITONITIS, UNSPECIFIED SNOMED Code(s): 21937976 (3) Perforation of sigmoid colon due to diverticulitis Current Visit: Yes Status: Acute Priority: High Code(s): K57.20 - DVTRCLI OF LG INT W PERFORATION AND ABSCESS W/O BLEEDING SNOMED Code(s): 5601806167906614 Plan: 1patient presented to hospital with sepsis in this patient who did have hypotension tachycardia leukopenia meeting criteria for SIRS source is likely perforated sigmoid diverticulitis with peritonitis, we will need to cover for the enteric gram-negative both aerobes and anaerobes keeping in mind her history of metastatic rectal cancer chemo and has been out of the hospital need to cover for resistant gram-negative pathogen 2-penicillin allergy therapy limit the number of antibiotics safe to use 3-patient is afebrile, the patient white normal to continue cefepime 2 g every 8 hours Flagyl 500 mg every 8 hour and monitor clinical course closely Dictation was produced using [email or web address] dictation software. please excuse any grammatical, word or spelling errors. Time with Patient: Less than 30
--- NOTE | 2024-04-13 09:18 | P.PN ---
Subjective Progress Note Date: 04/11/24 Principal diagnosis: Reason for follow-up is parotitis perforated diverticulitis Patient is a 68-year-old female with a past medical history significant for hypertension osteoarthritis hypothyroidism, metastatic rectal cancer previous history of smoking presenting to the hospital for evaluation of abdominal pain, the patient CT has been suggestive of pneumoperitoneum with diagnosis of perforated sigmoid diverticulitis patient is status post laparotomy sigmoid resection and end colostomy. On today's evaluation that is 04/11/2024, patient has been afebrile, patient extubated this morning, is currently breathing comfortably on 2 L nasal cannula oxygen denies chest pain did have some cough abdominal pain is currently controlled with pain medication. Patient white count is 7.1 creatinine is 0.58 blood cultures pending no abdominal cultures Objective - Vital Signs Vital signs: Vital Signs Temp 97.7 F 04/11/24 12:00 Pulse 96 04/11/24 13:00 Resp 15 04/11/24 13:00 BP 169/79 04/11/24 13:00 Pulse Ox 98 04/11/24 13:00 FiO2 30 04/11/24 10:16 Intake & Output 04/10/24 04/11/24 04/11/24 18:59 06:59 18:59 Intake Total 3516.318 4206.984 1073.163 Output Total 205 310 155 Balance 3311.318 3896.984 918.163 Weight 39.463 kg 52 kg 52 kg Intake: IV 1850 1756 1013 0.9 KVO 130 70 Sodium Chloride 0.9% 1, 650 1560 910 000 ml @ 130 mls/hr IV . Q7H42M [facility] Rx#:[id number] pressure bag 66 33 Intake, IV Titration 0680.880 6160.984 60.163 Amount Cefepime 2 gm In Sodium 100 Chloride 0.9% 100 ml @ 25 mls/hr IVPB Q8HR [facility] Rx# :[id number] Magnesium Sulfate-D5w Pmx 200 1 gm In Dextrose/Water 1 100ml.bag @ 100 mls/hr IVPB Q1H [facility] Rx#: [id number] Norepinephrine 8 mg In 29.716 12.650 Sodium Chloride 0.9% 250 ml @ 0.03 MCG/KG/MIN 2. 291 mls/hr IV .Q24H [facility] Rx#:[id number] Potassium Chloride 20 meq 300 In Water For Injection 1 100ml.bag @ 50 mls/hr IVPB Q2H [facility] Rx#: [id number] Sodium Chloride 0.9% 1, 1000 000 ml @ 999 mls/hr IV . Q1H1M [facility] Rx#:[id number] Sodium Chloride 0.9% 1, 1000 000 ml @ 999 mls/hr IV . Q1H1M [facility] Rx#:[id number] Sodium Chloride 0.9% 500 500 ml 500 ml @ 999 mls/hr IV .Q31M [facility] Rx#:[id number] Sodium Chloride 0.9% 500 500 ml 500 ml @ 999 mls/hr IV .Q31M [facility] Rx#:[id number] cefTRIAXone 1 gm In 50 Sodium Chloride 0.9% 50 ml @ 100 mls/hr IVPB ONCE [facility] Rx#:[id number] metroNIDAZOLE-NS PMX 500 100 200 mg In Saline 1 100ml.bag @ 100 mls/hr IVPB Q8H [facility] Rx#:[id number] propofoL 1,000 mg In 16.318 121.268 47.513 Empty Bag 1 bag @ 15 MCG/ KG/MIN 3.552 mls/hr IV . Q24H [facility] Rx#:[id number] Output: Urine 155 310 155 Estimated Blood Loss 50 Other: Voiding Method Indwelling Catheter Indwelling Catheter Indwelling Catheter ABP, PAP, CO, CI - Last Documented Arterial Blood Pressure 122/51 - Exam GENERAL DESCRIPTION: An elderly female lying in bed in no distress RESPIRATORY SYSTEM: Unlabored breathing , decreased breath sounds at bases HEART: S1 S2 regular rate and rhythm , ABDOMEN: Soft , mild tenderness EXTREMITIES: No edema feet - Labs CBC & Chem 7: 04/13/24 05:38 04/13/24 05:38 Labs: Abnormal Lab Results - Last 24 Hours (Table) 04/10/24 04/10/24 04/10/24 Range/Units 14:00 14:00 14:17 WBC 1.4 L* (3.8-10.6) k/uL RBC (3.80-5.40) m/uL Hct (34.0-46.0) % Neutrophils # 1.0 L (1.3-7.7) k/uL Lymphocytes # 0.3 L (1.0-4.8) k/uL Lymphocytes # (Manual) (1.0-4.8) k/uL Metamyelocytes # (Man) (0) k/uL Myelocytes # (Manual) (0) k/uL ABG pCO2 53 H (35-45) mmHg ABG pO2 392 H (83-108) mmHg ABG HCO3 29 H (21-25) mmol/L ABG Total CO2 31 H (19-24) mmol/L ABG O2 Saturation >100.0 H (94-97) % Sodium 131 L (137-145) mmol/L Potassium 3.0 L (3.5-5.1) mmol/L Chloride 97 L (98-107) mmol/L Creatinine 0.44 L (0.52-1.04) mg/dL Glucose 136 H (74-99) mg/dL Plasma Lactic Acid Dustin (0.7-2.0) mmol/L Calcium 8.0 L (8.4-10.2) mg/dL Urine Protein (Negative) 04/10/24 04/10/24 04/11/24 Range/Units 14:40 15:37 04:30 WBC (3.8-10.6) k/uL RBC 3.71 L (3.80-5.40) m/uL Hct 33.9 L (34.0-46.0) % Neutrophils # (1.3-7.7) k/uL Lymphocytes # (1.0-4.8) k/uL Lymphocytes # (Manual) 0.95 L (1.0-4.8) k/uL Metamyelocytes # (Man) 0.30 H (0) k/uL Myelocytes # (Manual) 0.09 H (0) k/uL ABG pCO2 (35-45) mmHg ABG pO2 (83-108) mmHg ABG HCO3 (21-25) mmol/L ABG Total CO2 (19-24) mmol/L ABG O2 Saturation (94-97) % Sodium (137-145) mmol/L Potassium (3.5-5.1) mmol/L Chloride (98-107) mmol/L Creatinine (0.52-1.04) mg/dL Glucose (74-99) mg/dL Plasma Lactic Acid Dustin 2.2 H* (0.7-2.0) mmol/L Calcium (8.4-10.2) mg/dL Urine Protein Trace H (Negative) 04/11/24 04/11/24 Range/Units 04:30 04:31 WBC (3.8-10.6) k/uL RBC (3.80-5.40) m/uL Hct (34.0-46.0) % Neutrophils # (1.3-7.7) k/uL Lymphocytes # (1.0-4.8) k/uL Lymphocytes # (Manual) (1.0-4.8) k/uL Metamyelocytes # (Man) (0) k/uL Myelocytes # (Manual) (0) k/uL ABG pCO2 (35-45) mmHg ABG pO2 122 H (83-108) mmHg ABG HCO3 (21-25) mmol/L ABG Total CO2 (19-24) mmol/L ABG O2 Saturation 99.0 H (94-97) % Sodium 134 L (137-145) mmol/L Potassium (3.5-5.1) mmol/L Chloride 108 H (98-107) mmol/L Creatinine (0.52-1.04) mg/dL Glucose 102 H (74-99) mg/dL Plasma Lactic Acid Dustin (0.7-2.0) mmol/L Calcium 7.6 L (8.4-10.2) mg/dL Urine Protein (Negative) Microbiology - Last 24 Hours (Table) 04/10/24 06:21 Blood Culture - Preliminary Blood Assessment and Plan (1) Sepsis Current Visit: Yes Status: Acute Code(s): A41.9 - SEPSIS, UNSPECIFIED ORGANISM SNOMED Code(s): 51946462 (2) Peritonitis Current Visit: Yes Status: Acute Code(s): K65.9 - PERITONITIS, UNSPECIFIED SNOMED Code(s): 56356455 (3) Perforation of sigmoid colon due to diverticulitis Current Visit: Yes Status: Acute Priority: High Code(s): K57.20 - DVTRCLI OF LG INT W PERFORATION AND ABSCESS W/O BLEEDING SNOMED Code(s): 0574828964104566 Plan: 1patient presented to hospital with sepsis in this patient who did have hypotension tachycardia leukopenia meeting criteria for SIRS source is likely perforated sigmoid diverticulitis with peritonitis, we will need to cover for the enteric gram-negative both aerobes and anaerobes keeping in mind her history of metastatic rectal cancer chemo and has been out of the hospital need to cover for resistant gram-negative pathogen 2-penicillin allergy therapy limit the number of antibiotics safe to use 3-patient to continue cefepime 2 g every 8 hours Flagyl 500 mg every 8 hour Dictation was produced using [employer] dictation software. please excuse any grammatical, word or spelling errors. Time with Patient: Less than 30
[2024-04-13] MEDS: ALPRAZolam 0.25 MG TAB PO PRN (09:45)
--- NOTE | 2024-04-13 11:03 | P.PN ---
Subjective Progress Note Date: 04/13/24 History of Present Illness: The patient is a 68-year-old female, recently diagnosed with metastatic rectal carcinoma, received chemotherapy recently and has been followed by Dr. Conte who presented with severe abdominal discomfort and was diagnosed with pneumoperitoneum, she underwent sigmoid colon resection with colostomy by Dr. Giron on April 10. She was extubated yesterday and later on during the night she had an episode of hypertension and subsequently atrial fibrillation with rapid ventricular response. She was started on IV heparin, IV Cardizem and subsequently IV amiodarone and she is back in sinus mechanism. The patient denies any prior history of atrial fibrillation. She has a history of hypertrophic obstructive cardiomyopathy by echocardiogram done few years ago but no history of obstructive CAD. She has a prior history of tobacco and alcohol intake but has stopped 3 years ago. She has borderline hypertension, no diabetes. She is complaining of generalized achiness, continues to have an NG tube with no significant discharges from her colostomy. She was started on Cl eviprex for blood pressure control. At baseline according to the patient she is relatively active physically and has no significant symptoms or limitations. Medications: She is on IV amiodarone, IV heparin, IV Cleviprex Progress note 04/13/2024 Patient is seen and examined at bedside this a.m. She still has NG tube but is able to tolerate oral medications today. She was able to tolerate her beta- blane. I will transition her IV amiodarone to p.o. today. I will continue to keep her on IV heparin drip for now. Consider transitioning to p.o. if no concerns of bleeding, no concerns of worsening GI symptoms or need for any further surgeries Physical Examination: 68-year-old female, complaining of generalized discomfort, awake and alert, NG tube in place,Blood pressure 151/67, Heart rate 89 Head: Normocephalic. Eyes: Sclerae nonicteric. Neck: Good carotid upstroke, no bruit, no jugular venous distention. Lungs: Clear to auscultation. Heart: Regular rate and rhythm with extrasystole, S1-S2, no S3, no rub. Systolic ejection murmur at the base 2/6 with holosystolic murmur at the apex 3/6. Abdomen: Soft ,tender, colostomy in place, dressing dry. Hypoactive bowel sounds. No organomegaly. Extremities: No edema, intact distal pulses. EKG: On admission sinus tachycardia, occasional PVCs, borderline IVCD with poor R wave progression, cannot exclude interval wall myocardial infarction Echo Hyperdynamic LV, EF 60%, concerns of concentric LVH with mid ventricular obstruction with elevated gradients with peak gradients more than 100 mmHg, systolic anterior motion of mitral valve with moderate MR. Impression: 1. Status post colostomy with sigmoid resection for perforated bowel, history of metastatic rectal carcinoma 2. Paroxysmal atrial fibrillation, back in sinus mechanism 3. Hypertension not treated in the past 4. History of hypertrophic obstructive cardiomyopathy 5. Remote history of smoking and alcohol intake Plan: 1. Continue metoprolol 25 mg twice daily. Consider uptitrating beta-blane tomorrow because of high mid ventricular cavity gradients. Heart rate today 60s to 70s during rest, therefore will decrease dose today. 2. Avoid using any diuretics. Supplement IV fluids if patient gets hypotensive. 3. Continue amiodarone, transition to p.o. 200 mg 3 times daily for 7 days. Thereafter down titrate the dose 4. Continue IV heparin drip. Consider transitioning to p.o. if no concerns of bleeding, no concerns of worsening GI symptoms or need for any further surgeries Objective - Vital Signs Vital signs: Vital Signs Temp 98.4 F 04/13/24 08:00 Pulse 69 04/13/24 10:15 Resp 13 04/13/24 10:15 BP 143/74 04/13/24 10:15 Pulse Ox 92 L 04/13/24 10:15 FiO2 30 04/11/24 10:16 Intake & Output 04/12/24 04/13/24 04/13/24 18:59 06:59 18:59 Intake Total 958.176 970 619.846 Output Total 515 575 160 Balance 443.176 395 459.846 Weight 52 kg 58.7 kg Intake: IV 760 720 236 0.9 KVO 110 120 30 Lactated Ringers 1,000 ml 300 600 200 @ 50 mls/hr IV .Q20H [facility]BE[facility] Rx#:[id number] Sodium Chloride 0.9% 1, 350 000 ml @ 100 mls/hr IV . Q10H [facility]BE[facility] Rx#:[id number] pressure bag 6 Intake, IV Titration 78.176 250 383.846 Amount Amiodarone 450 mg In 250 Dextrose 5% in Water 250 ml @ 0.5 MG/MIN 16.667 mls/hr IV .Q15H [facility] Rx#: [id number] Cefepime 2 gm In Sodium 100 Chloride 0.9% 100 ml @ 25 mls/hr IVPB Q8HR [facility] Rx# :[id number] Clevidipine Butyrate 25 24.2 1.967 mg In Empty Bag 1 bag @ 1 MG/HR 2 mls/hr IV .Q24H [facility] Rx#:[id number] Heparin Sod,Pork in 0.45% 53.976 181.879 NaCl 25,000 unit In 0.45 % NaCl 1 250ml.bag @ 12 UNITS/KG/HR 6.24 mls/hr IV .Q24H [facility] Rx#: [id number] metroNIDAZOLE-NS PMX 500 100 mg In Saline 1 100ml.bag @ 100 mls/hr IVPB Q8H [facility] Rx#:[id number] Other 120 Output: Gastric Drainage 100 Urine 515 475 160 Other: Voiding Method Indwelling Catheter Indwelling Catheter ABP, PAP, CO, CI - Last Documented Arterial Blood Pressure 122/51 - Labs CBC & Chem 7: 04/13/24 05:38 04/13/24 05:38 Labs: Abnormal Lab Results - Last 24 Hours (Table) 04/12/24 04/13/24 04/13/24 Range/Units 14:29 05:38 05:38 WBC 12.4 H (3.8-10.6) k/uL RBC 3.20 L (3.80-5.40) m/uL Hgb 10.1 L (11.4-16.0) gm/dL Hct 30.5 L (34.0-46.0) % APTT 48.9 H (22.0-30.0) sec Sodium 136 L (137-145) mmol/L Chloride 111 H (98-107) mmol/L Carbon Dioxide 18 L (22-30) mmol/L BUN 19 H (7-17) mg/dL Creatinine 0.46 L (0.52-1.04) mg/dL 04/13/24 Range/Units 08:25 WBC (3.8-10.6) k/uL RBC (3.80-5.40) m/uL Hgb (11.4-16.0) gm/dL Hct (34.0-46.0) % APTT 49.9 H (22.0-30.0) sec Sodium (137-145) mmol/L Chloride (98-107) mmol/L Carbon Dioxide (22-30) mmol/L BUN (7-17) mg/dL Creatinine (0.52-1.04) mg/dL Microbiology - Last 24 Hours (Table) 04/10/24 06:21 Blood Culture - Preliminary Blood
[2024-04-13 11:27] LABS: Glucose,Whole Blood 90 mg/dL (70-110)
--- NOTE | 2024-04-13 12:05 | P.PN ---
Subjective Progress Note Date: 04/13/24 Principal diagnosis: reason for consult: other (ICU management) This is a 68-year-old female with history of metastatic rectal cancer presented to the ER 04/10 mostly with abdominal pain. Patient has been receiving chemotherapy for her rectal cancer, her first treatment was March 29. Patient has not been feeling well since March 29, presented to the ER with few days history of abdominal pain, lower abdominal pain. Patient had some nausea, no vomiting. No bowel movement for the few days, patient noted no fever, no chills, CT of the abdomen pelvis showed pneumoperitoneum and possible perforation of the ascending colon. Patient underwent exploratory laparotomy sigmoid colon resection with end colostomy. Patient was found to have perforated diverticulitis of the sigmoid colon. Postoperatively, patient was sent to the ICU, intubated mechanically ventilated, she is presently on assist- control rate of 16, tidal volume increased to 350, FiO2 100% and PEEP of 5. ABG on FiO2 of 100% showed a pO2 of 392, pCO2 of 53 pH of 7.35, hence vent adjustment was made and she was on FiO2 of 40%, rate of 16, and tidal volume of 350. Patient is hemodynamically stable, not requiring any pressors, she is however requiring fluids for relatively marginal blood pressure and tachycardia. Her electrolytes showed low potassium of 3.0 that is being addressed accordingly bicarb is 27 renal profile is normal WBC count is 1.4 hemoglobin 13.8. Her WBC count on admission was 7.5 dropped down significantly to 1.4. Antibiotics miranda, patient received cefepime, she is also on metronidazole, patient could not be placed on Zosyn mostly because of her penicillin allergy. On her initial presentation she received Levaquin she also received a Rocephin. 04/11/2024 patient seen and examined at bedside. Patient still in the ICU intubated, sedated and mechanically ventilated. Ventilator settings are assist- control with a rate of 16, tidal volume 350, PEEP of 5 with FiO2 40%. No acute events overnight. Currently drips are normal saline 0.9% with a rate of 130 cc/h, propofol with a rate of 40 and Levophed of 0.02 mcg/kg/min. Chest x-ray shows atelectasis at the right lung base with ET tube, NG tube, and central venous catheters in place. ABG Shows CO2 22, CO2 41 and pH of 7.36. Other labs today show WBC 4.3, hemoglobin 11.5, platelet count 1 59,000, sodium 134, pota ssium 4.2 BUN 16, creatinine 0.58 glucose 102, calcium 7.6, phosphorus 3, magnesium 2.1 04/12/2024 patient seen and examined at bedside. Patient still in the ICU and was extubated around 11 AM yesterday at 04/11. Overnight, patient had an episode of A-fib with rapid ventricular response with associated hypotension. Currently on IV fluids normal saline at 100 cc, amiodarone IV at 0.5 mg/min, he xiao drip at 12 units/kg/h, and Cardizem drip at 1 mg/h. Chest x-ray today shows mild atelectatic type changes at the left base with central venous catheter, NG tube in place. Labs today showed WBC 9.9 hemoglobin 10.4 platelet count 190,000 PTT 36.1 PTT 12.1 INR 1.1 sodium 137 potassium 3.3 chloride 112 bicarb 21 BUN 18 creatinine 0.62 glucose 100 calcium 8.4 magnesium 2.1 04/13/2024 patient seen and examined at bedside. No acute events overnight. Postop exploratory laparotomy and sigmoid colon resection with end colostomy day 3. Currently on IV fluids normal saline at 100 cc, amiodarone IV at 0.5 mg/min and heparin drip at 12 units/kg/h. On day 4 of metronidazole IV and cefepime IV. Chest x-ray showed interval development of some mild infiltrate at the right base which is likely atelectasis with small left pleural effusion and NG tube and central venous catheter and port catheter seen and in place. Labs today show WBC 12.4, hemoglobin 10.1, platelet count 1 93,000 PTT 49.9, sodium 136, potassium 4, bicarb 18, BUN 19, creatinine 0.46, glucose 90, calcium 8.7. TSH less than 0.0 15 Free T41.72. Echocardiogram showed hyperdynamic LV, EF 60%, concerns of concentric LVH with mid ventricular obstruction with elevated gradients with peak gradients more than 100 mmHg, systolic anterior motion of mitral valve with moderate MR. Review of systems: Could not assess Pertinent imaging and labs reviewed. Physical examination: Vital signs reviewed General: non toxic, no distress, on 2 L nasal cannula Derm: no unusual rashes/lesions, warm Head: atraumatic, normocephalic, symmetric Eyes: EOMI, anicteric sclera, pupils equal round reactive to light ENT: Nose and ears atraumatic Neck: No cervical lymphadenopathy, trachea midline, supple Mouth: no lip lesion, mucus membranes moist Cardiovascular: S1S2 regular, no murmur Lungs: Rhonchi at right basilar area, no rales, no accessory muscle use, central venous cath noted in right upper chest area Abdominal: soft, nontender to palpation, no guarding, colostomy bag seen on the left lower quadrant with output with stoma clean no erythema or swelling noted. Noted midline incision with dressing that is clean and dry and no erythema on surrounding skin Ext: no gross muscle atrophy, no contractures, positive dorsalis pedis pulse bilateral, no edema Neuro: Alert and oriented x 3, no focal neurologic deficits Psych: Appropriate mood and affect Assessment/Plan: Active problems: Paroxysmal atrial fibrillation, now in sinus rhythm Hypertension Pneumoperitoneum, status post exploratory laparotomy and sigmoid colon resection with end colostomy postoperative day #3 Acute hypoxic respiratory failure secondary to above, resolved Abdominal sepsis, resolved leukopenia secondary to sepsis, resolved Lactic acidosis secondary to abdominal sepsis, resolved Hypokalemia, resolved Chronic conditions: History of metastatic rectal carcinoma patient has been on chemotherapy recently History of hypertrophic obstructive cardiomyopathy Recommendations: Cardiac monitoring Supportive oxygenation as needed Still on NPO. Recommend enteral tube feeding for nutrition if surgery service approves. Continue IV fluids to lactated Ringer's at 50 cc/h Continue IV Cefepime and Flagyl for empiric coverage. Currently on day 4 Alprazolam 0.25mg twice daily as needed for anxiety Echocardiogram showed hyperdynamic LV, EF 60%, concerns of concentric LVH with mid ventricular obstruction with elevated gradients with peak gradients more than 100 mmHg, systolic anterior motion of mitral valve with moderate MR. Blood cultures pending TSH was less than 0.015 with reflex T4 at 1.72 Will monitor daily labs electrolytes and CBC Will monitor daily x-rays of the chest Cardiology following. Recommended patient placed on IV amiodarone and will transtion to PO for 7 days. Continue IV heparin unless contraindicated. Continue metoprolol 25mg PO twice daily. DVT prophylaxis: IV heparin GI prophylaxis: Protonix 40 mg IV daily Prognosis: depending on clinical course. Patient aware of plan and verbalized understanding. Becki Navarrete MD PGY-1/Professional Services Specialist Dictation was produced using [employer] dictation software. please excuse any grammatical, word or spelling errors. Objective - Vital Signs Vital signs: Vital Signs Temp 97.4 F L 04/13/24 04:00 Pulse 79 04/13/24 08:00 Resp 15 04/13/24 08:00 BP 170/73 04/13/24 08:00 Pulse Ox 96 04/13/24 08:00 FiO2 30 04/11/24 10:16 Intake & Output 04/12/24 04/13/24 04/13/24 18:59 06:59 18:59 Intake Total 958.176 970 60 Output Total 515 575 40 Balance 443.176 395 20 Weight 52 kg 58.7 kg Intake: IV 760 720 60 0.9 KVO 110 120 10 Lactated Ringers 1,000 ml 300 600 50 @ 50 mls/hr IV .Q20H [facility] Rx#:[id number] Sodium Chloride 0.9% 1, 350 000 ml @ 100 mls/hr IV . Q10H [facility] Rx#:[id number] Intake, IV Titration 78.176 250 Amount Amiodarone 450 mg In 250 Dextrose 5% in Water 250 ml @ 0.5 MG/MIN 16.667 mls/hr IV .Q15H [facility] Rx#: [id number] Clevidipine Butyrate 25 24.2 mg In Empty Bag 1 bag @ 1 MG/HR 2 mls/hr IV .Q24H [facility] Rx#:[id number] Heparin Sod,Pork in 0.45% 53.976 NaCl 25,000 unit In 0.45 % NaCl 1 250ml.bag @ 12 UNITS/KG/HR 6.24 mls/hr IV .Q24H [facility] Rx#: [id number] Other 120 Output: Gastric Drainage 100 Urine 515 475 40 Other: Voiding Method Indwelling Catheter Indwelling Catheter ABP, PAP, CO, CI - Last Documented Arterial Blood Pressure 122/51 - Labs CBC & Chem 7: 04/13/24 05:38 04/13/24 05:38 Labs: Abnormal Lab Results - Last 24 Hours (Table) 04/12/24 04/12/24 04/13/24 Range/Units 07:45 14:29 05:38 WBC (3.8-10.6) k/uL RBC (3.80-5.40) m/uL Hgb (11.4-16.0) gm/dL Hct (34.0-46.0) % APTT 48.9 H (22.0-30.0) sec Sodium 136 L (137-145) mmol/L Potassium 3.3 L (3.5-5.1) mmol/L Chloride 112 H 111 H (98-107) mmol/L Carbon Dioxide 21 L 18 L (22-30) mmol/L BUN 18 H 19 H (7-17) mg/dL Creatinine 0.46 L (0.52-1.04) mg/dL Glucose 100 H (74-99) mg/dL TSH <0.015 L (0.465-4.680) mIU/L 04/13/24 Range/Units 05:38 WBC 12.4 H (3.8-10.6) k/uL RBC 3.20 L (3.80-5.40) m/uL Hgb 10.1 L (11.4-16.0) gm/dL Hct 30.5 L (34.0-46.0) % APTT (22.0-30.0) sec Sodium (137-145) mmol/L Potassium (3.5-5.1) mmol/L Chloride (98-107) mmol/L Carbon Dioxide (22-30) mmol/L BUN (7-17) mg/dL Creatinine (0.52-1.04) mg/dL Glucose (74-99) mg/dL TSH (0.465-4.680) mIU/L Microbiology - Last 24 Hours (Table) 04/10/24 06:21 Blood Culture - Preliminary Blood
--- NOTE | 2024-04-13 13:32 | P.PN ---
Subjective Progress Note Date: 04/13/24 patient is a 68-year-old lady with past medical history significant for metastatic rectal cancer brought to the ER for evaluation of lower abdominal pain. Patient that she has been not been feeling well for the last few days. Patient stated that she was having lower quad abdominal pain which was generali zed, nonradiating, no aggravating or leaving factors associated abdominal pain. Patient also complaining of constipation and has not had a bowel movement in a number of days. There was no complaint of fever or chills. There was complaint of nausea but no vomiting. Patient stated she recently started chemotherapy. Because of these symptoms, patient presented to the ER Initial lab work done in the ER showed WBC 7.5, hemoglobin 9.5, platelet count 335, sodium 130, potassium 3, BUN 14, creatinine 0.53, lactate 4.5 EKG done in the ER showed heart rate of 116 , no ST segment elevation or depres stefania seen, no T-wave inversions seen. CT abdominal pelvis done showed large pneumoperitoneum, mild circumferential wall thickening of a short segment of ascending colon and proximal sigmoid colon in associated with diverticula suggest diverticulitis versus colitis Patient admitted to internal medicine service 04/11. Patient seen and examined. Patient currently intubated, opening eyes and following commands. 04/12. Patient seen examined. Patient is currently extubated. Alert, currently has NG tube in. Lab work done this morning showed WBC 9.9, hemoglobin 10.4, platelet count 190, sodium 137, potassium 3.3, BUN 18, creatinine 0.62, glucose 100. Patient went to [facility] overnight, currently on amiodarone. 04/13. Patient seen and examined. CurrentlyLaying in the chair. Still has NG tube in. Stated pain has slightly improved. Currently on IV amiodarone, heparin. REVIEW OF SYSTEMS: Denies any chest pain. Complaining of abdominal pain but states improved from yesterday. Vital signs stable. PHYSICAL EXAMINATION: GENERAL: The patient is alert HEENT: Pupils are round and equally reacting to light. EOMI. No scleral icterus. No conjunctival pallor. Normocephalic, atraumatic. No pharyngeal erythema. No thyromegaly. CARDIOVASCULAR: S1 and S2 present. No murmurs, rubs, or gallops. PULMONARY: Chest is clear to auscultation, no wheezing or crackles. ABDOMEN: Tenderness, surgical incision seen, ostomy seen no palpable organomegaly. MUSCULOSKELETAL: No joint swelling or deformity. EXTREMITIES: No cyanosis, clubbing, or pedal edema. NEUROLOGICAL: Moving all extremities SKIN: No rashes. Assessment and plan Pneumoperitoneum Sepsis A-fib with RVR Acute hypoxic respiratory failure Acute sigmoid colon perforation Acute diverticulitis Hyponatremia Hypokalemia Lactic acidosis History of rectal cancer Monitor vital signs Monitor CBC Monitor CMP Continue telemetry monitoring status post exploratory laparotomy and sigmoid colon resection with end colostomy Continue IV fluids Continue amiodarone, transition from IV to oral Continue IV heparin Aggressive bronchopulmonary hygiene Continue IV cefepime, Flagyl Pulmonology following Surgery following ID following Labs and medication were reviewed.. Continue same treatment. Continue with symptomatic treatment. Resume home medication. Monitor labs and vitals. DVT and GI prophylaxis. Further recommendations as per clinical course of the patient Dictation was produced using [employer] dictation software. please excuse any grammatical, word or spelling errors. Objective - Vital Signs Vital signs: Vital Signs Temp 98.6 F 04/13/24 12:00 Pulse 72 04/13/24 12:00 Resp 12 04/13/24 12:00 BP 154/69 04/13/24 12:00 Pulse Ox 97 04/13/24 12:00 FiO2 30 04/11/24 10:16 Intake & Output 04/12/24 04/13/24 04/13/24 18:59 06:59 18:59 Intake Total 958.176 970 925.846 Output Total 515 575 260 Balance 443.176 395 665.846 Weight 52 kg 58.7 kg Intake: IV 760 720 342 0.9 KVO 110 120 30 Lactated Ringers 1,000 ml 300 600 300 @ 50 mls/hr IV .Q20H [facility]BEY Rx#:[id number] Sodium Chloride 0.9% 1, 350 000 ml @ 100 mls/hr IV . Q10H [facility] Rx#:[id number] pressure bag 12 Intake, IV Titration 78.176 250 583.846 Amount Amiodarone 450 mg In 250 Dextrose 5% in Water 250 ml @ 0.5 MG/MIN 16.667 mls/hr IV .Q15H [facility] Rx#: [id number] Cefepime 2 gm In Sodium 300 Chloride 0.9% 100 ml @ 25 mls/hr IVPB Q8HR [facility] Rx# :[id number] Clevidipine Butyrate 25 24.2 1.967 mg In Empty Bag 1 bag @ 1 MG/HR 2 mls/hr IV .Q24H [facility] Rx#:[id number] Heparin Sod,Pork in 0.45% 53.976 181.879 NaCl 25,000 unit In 0.45 % NaCl 1 250ml.bag @ 12 UNITS/KG/HR 6.24 mls/hr IV .Q24H [facility]Y Rx#: [id number] metroNIDAZOLE-NS PMX 500 100 mg In Saline 1 100ml.bag @ 100 mls/hr IVPB Q8H [facility]Y Rx#:[id number] Other 120 Output: Gastric Drainage 100 Urine 515 475 260 Other: Voiding Method Indwelling Catheter Indwelling Catheter ABP, PAP, CO, CI - Last Documented Arterial Blood Pressure 122/51 - Labs CBC & Chem 7: 04/13/24 05:38 04/13/24 05:38 Labs: Abnormal Lab Results - Last 24 Hours (Table) 04/12/24 04/13/24 04/13/24 Range/Units 14:29 05:38 05:38 WBC 12.4 H (3.8-10.6) k/uL RBC 3.20 L (3.80-5.40) m/uL Hgb 10.1 L (11.4-16.0) gm/dL Hct 30.5 L (34.0-46.0) % APTT 48.9 H (22.0-30.0) sec Sodium 136 L (137-145) mmol/L Chloride 111 H (98-107) mmol/L Carbon Dioxide 18 L (22-30) mmol/L BUN 19 H (7-17) mg/dL Creatinine 0.46 L (0.52-1.04) mg/dL 04/13/24 Range/Units 08:25 WBC (3.8-10.6) k/uL RBC (3.80-5.40) m/uL Hgb (11.4-16.0) gm/dL Hct (34.0-46.0) % APTT 49.9 H (22.0-30.0) sec Sodium (137-145) mmol/L Chloride (98-107) mmol/L Carbon Dioxide (22-30) mmol/L BUN (7-17) mg/dL Creatinine (0.52-1.04) mg/dL Microbiology - Last 24 Hours (Table) 04/10/24 06:21 Blood Culture - Preliminary Blood
--- NOTE | 2024-04-13 15:13 | P.PN ---
Subjective Progress Note Date: 04/13/24 Principal diagnosis: Reason for follow-up is parotitis perforated diverticulitis Patient is a 68-year-old female with a past medical history significant for hypertension osteoarthritis hypothyroidism, metastatic rectal cancer previous history of smoking presenting to the hospital for evaluation of abdominal pain, the patient CT has been suggestive of pneumoperitoneum with diagnosis of perforated sigmoid diverticulitis patient is status post laparotomy sigmoid resection and end colostomy. On today's evaluation that is 04/13/2024,the patient denies any fever or any chills, patient is breathing comfortably on 2 L nasal oxygen, the patient denies chest pain shortness of breath and no significant cough, patient abdominal pain is currently controlled no nausea no vomiting no significant output in colostomy. Patient white count slightly up to 12.4 today creatinine 0.46 blood culture negative Objective - Vital Signs Vital signs: Vital Signs Temp 98.6 F 04/13/24 12:00 Pulse 72 04/13/24 12:00 Resp 12 04/13/24 12:00 BP 154/69 04/13/24 12:00 Pulse Ox 97 04/13/24 12:00 FiO2 30 04/11/24 10:16 Intake & Output 04/12/24 04/13/24 04/13/24 18:59 06:59 18:59 Intake Total 958.176 970 925.846 Output Total 515 575 260 Balance 443.176 395 665.846 Weight 52 kg 58.7 kg Intake: IV 760 720 342 0.9 KVO 110 120 30 Lactated Ringers 1,000 ml 300 600 300 @ 50 mls/hr IV .Q20H [facility] Rx#:[id number] Sodium Chloride 0.9% 1, 350 000 ml @ 100 mls/hr IV . Q10H [facility] Rx#:[id number] pressure bag 12 Intake, IV Titration 78.176 250 583.846 Amount Amiodarone 450 mg In 250 Dextrose 5% in Water 250 ml @ 0.5 MG/MIN 16.667 mls/hr IV .Q15H [facility] Rx#: [id number] Cefepime 2 gm In Sodium 300 Chloride 0.9% 100 ml @ 25 mls/hr IVPB Q8HR [facility] Rx# :[id number] Clevidipine Butyrate 25 24.2 1.967 mg In Empty Bag 1 bag @ 1 MG/HR 2 mls/hr IV .Q24H [facility] Rx#:[id number] Heparin Sod,Pork in 0.45% 53.976 181.879 NaCl 25,000 unit In 0.45 % NaCl 1 250ml.bag @ 12 UNITS/KG/HR 6.24 mls/hr IV .Q24H [facility] Rx#: [id number] metroNIDAZOLE-NS PMX 500 100 mg In Saline 1 100ml.bag @ 100 mls/hr IVPB Q8H [facility] Rx#:[id number] Other 120 Output: Gastric Drainage 100 Urine 515 475 260 Other: Voiding Method Indwelling Catheter Indwelling Catheter ABP, PAP, CO, CI - Last Documented Arterial Blood Pressure 122/51 - Exam GENERAL DESCRIPTION: An elderly female lying in bed in no distress RESPIRATORY SYSTEM: Unlabored breathing , decreased breath sounds at bases HEART: S1 S2 regular rate and rhythm , ABDOMEN: Soft , mild tenderness EXTREMITIES: No edema feet - Labs CBC & Chem 7: 04/13/24 05:38 04/13/24 05:38 Labs: Abnormal Lab Results - Last 24 Hours (Table) 04/13/24 04/13/24 04/13/24 Range/Units 05:38 05:38 08:25 WBC 12.4 H (3.8-10.6) k/uL RBC 3.20 L (3.80-5.40) m/uL Hgb 10.1 L (11.4-16.0) gm/dL Hct 30.5 L (34.0-46.0) % APTT 49.9 H (22.0-30.0) sec Sodium 136 L (137-145) mmol/L Chloride 111 H (98-107) mmol/L Carbon Dioxide 18 L (22-30) mmol/L BUN 19 H (7-17) mg/dL Creatinine 0.46 L (0.52-1.04) mg/dL Microbiology - Last 24 Hours (Table) 04/10/24 06:21 Blood Culture - Preliminary Blood Assessment and Plan (1) Sepsis Current Visit: Yes Status: Acute Code(s): A41.9 - SEPSIS, UNSPECIFIED ORGANISM SNOMED Code(s): 06467279 (2) Peritonitis Current Visit: Yes Status: Acute Code(s): K65.9 - PERITONITIS, UNSPECIFIED SNOMED Code(s): 75402562 (3) Perforation of sigmoid colon due to diverticulitis Current Visit: Yes Status: Acute Priority: High Code(s): K57.20 - DVTRCLI OF LG INT W PERFORATION AND ABSCESS W/O BLEEDING SNOMED Code(s): 8536329408163649 Plan: 1patient presented to hospital with sepsis in this patient who did have hypotension tachycardia leukopenia meeting criteria for SIRS source is likely perforated sigmoid diverticulitis with peritonitis, we will need to cover for the enteric gram-negative both aerobes and anaerobes keeping in mind her history of metastatic rectal cancer chemo and has been out of the hospital need to cover for resistant gram-negative pathogen 2-penicillin allergy therapy limit the number of antibiotics safe to use 3-patient is afebrile, the patient white slightly up today possible reactive will monitor closely 4patient to be treated with cefepime 2 g every 8 hours Flagyl 500 mg every 8 hour and monitor clinical course closely, discussed with the surgeon on the floor Dictation was produced using [employer] dictation software. please excuse any grammatical, word or spelling errors. Time with Patient: Less than 30
[2024-04-13] MEDS: AMIODARONE 200 MG TAB PO SCH (16:32)
--- NOTE | 2024-04-13 19:57 | P.PN ---
Subjective Patient seen and evaluated at bedside. Patient doing well, pain is contolled w/ dilaudid. Denies nausea or vomiting. Objective - Vital Signs Vital signs: Vital Signs Temp 97.7 F 04/13/24 16:00 Pulse 84 04/13/24 19:00 Resp 17 04/13/24 19:00 BP 153/78 04/13/24 19:00 Pulse Ox 98 04/13/24 19:00 FiO2 30 04/11/24 10:16 Intake & Output 04/13/24 04/13/24 04/14/24 06:59 18:59 06:59 Intake Total 970 1545.013 Output Total 575 620 Balance 395 925.013 Weight 58.7 kg Intake: IV 720 853 0.9 KVO 120 70 Lactated Ringers 1,000 ml 600 650 @ 50 mls/hr IV .Q20H [facility] Rx#:[id number] metroNIDAZOLE-NS PMX 500 100 mg In Saline 1 100ml.bag @ 100 mls/hr IVPB Q8H [facility] Rx#:[id number] pressure bag 33 Intake, IV Titration 250 692.013 Amount Amiodarone 450 mg In 250 Dextrose 5% in Water 250 ml @ 0.5 MG/MIN 16.667 mls/hr IV .Q15H [facility] Rx#: [id number] Cefepime 2 gm In Sodium 400 Chloride 0.9% 100 ml @ 25 mls/hr IVPB Q8HR [facility] Rx# :[id number] Clevidipine Butyrate 25 10.134 mg In Empty Bag 1 bag @ 1 MG/HR 2 mls/hr IV .Q24H [facility] Rx#:[id number] Heparin Sod,Pork in 0.45% 181.879 NaCl 25,000 unit In 0.45 % NaCl 1 250ml.bag @ 12 UNITS/KG/HR 6.24 mls/hr IV .Q24H [facility] Rx#: [id number] metroNIDAZOLE-NS PMX 500 100 mg In Saline 1 100ml.bag @ 100 mls/hr IVPB Q8H [facility] Rx#:[id number] Output: Gastric Drainage 100 Urine 475 620 Other: Voiding Method Indwelling Catheter Indwelling Catheter ABP, PAP, CO, CI - Last Documented Arterial Blood Pressure 122/51 - Exam gen: nad cv: rrr pul: non labored breathing abd: soft, non distended, tender to palpation, surgical incision with ryan c/d/i, ostomy pink/nice [place], bowel sweat - Labs CBC & Chem 7: 04/13/24 05:38 04/13/24 05:38 Labs: Abnormal Lab Results - Last 24 Hours (Table) 04/13/24 04/13/24 04/13/24 Range/Units 05:38 05:38 08:25 WBC 12.4 H (3.8-10.6) k/uL RBC 3.20 L (3.80-5.40) m/uL Hgb 10.1 L (11.4-16.0) gm/dL Hct 30.5 L (34.0-46.0) % APTT 49.9 H (22.0-30.0) sec Sodium 136 L (137-145) mmol/L Chloride 111 H (98-107) mmol/L Carbon Dioxide 18 L (22-30) mmol/L BUN 19 H (7-17) mg/dL Creatinine 0.46 L (0.52-1.04) mg/dL Microbiology - Last 24 Hours (Table) 04/10/24 06:21 Blood Culture - Preliminary Blood Assessment and Plan Assessment: 68 yo female POD #2 s/p -pain controlled -pt asking for gingerale -minimal output from nasogastric tube Time with Patient: Less than 30
[2024-04-13 23:48] LABS: Glucose,Whole Blood 90 mg/dL (70-110)
[2024-04-14 04:26] LABS: Basophils % (A) 0 %; Eosinophils % (A) 0 %; HCT 30.9 % (34.0-46.0); HGB 10.2 gm/dL (11.4-16.0); Lymphocytes # (A) 0.9 k/uL (1.0-4.8); Lymphocytes % (A) 9 %; MCH 30.5 pg (25.0-35.0); MCHC 32.9 g/dL (31.0-37.0); MCV 92.7 fL (80.0-100.0); Mean Platelet Volume 8.5; Monocytes # (A) 0.7 k/uL (0-1.0); Monocytes % (A) 7 %; Neutrophils # (A) 8.4 k/uL (1.3-7.7); Neutrophils % (A) 83 %; Platelet Count 190 k/uL (150-450); RBC 3.33 m/uL (3.80-5.40); RDW 14.6 % (11.5-15.5); WBC 10.2 k/uL (3.8-10.6)
[2024-04-14 05:11] LABS: African American GFR (CKD) >90 (>60 ml/min/1.73 sqM); Anion Gap 6 mmol/L; Blood Urea Nitrogen 18 mg/dL (7-17); Calcium 8.6 mg/dL (8.4-10.2); Carbon Dioxide 21 mmol/L (22-30); Chloride 109 mmol/L (98-107); Glucose 71 mg/dL (74-99); Non-African American GFR(CKD) >90 (>60 ml/min/1.73 sqM); Potassium 3.7 mmol/L (3.5-5.1); Sodium 136 mmol/L (137-145)
[2024-04-14 06:32] LABS: Glucose,Whole Blood 76 mg/dL (70-110)
[2024-04-14] MEDS: POTASSIUM BICARBONATE/CIT AC 20 MEQ TABLET.EFF NG-TUBE SCH (06:47)
--- NOTE | 2024-04-14 07:24 | P.PN ---
Subjective Progress Note Date: 04/14/24 PROGRESS NOTE The patient is a 68-year-old female diagnosed recently with metastatic rectal carcinoma, started chemotherapy, presented with pneumoperitoneum and underwent colon resection and colostomy. She had episode of atrial fibrillation postoperatively. She is back in sinus mechanism. She is sitting up in the chair, has abdominal discomfort but no chest discomfort. She continues to be in sinus mechanism on Cleviprex for hypertension. She has no evidence of ventricular ectopic activity. She has been changed to oral amiodarone but continues to be on IV heparin. She continues to have an NG tube with no significant discharge from her colostomy. She had an echocardiogram done that showed a preserved systolic function with hypertrophic obstructive cardiomyopathy and MARISSA with moderate to severe mitral regurgitation. She has the diagnosis of hypertrophic cardiomyopathy in the past. Medications: Amiodarone 200 mg 3 times daily, Cleviprex, IV heparin, metoprolol tartrate 25 mg twice a day PHYSICAL EXAMINATION: Blood pressure 168/90 heart rate 93 LUNGS: Clear to auscultation HEART: Regular rate and rhythm, S1, S2. No S3. Holosystolic murmur at the apex with a systolic murmur at the base ABDOMEN: Soft hypoactive bowel sounds, colostomy noted EXTREMETIES: No edema LAB: Hemoglobin 10.2, BUN 18, creatinine 0.43, potassium 3.7 IMPRESSION: 1. Status post colon resection and colostomy for pneumoperitoneum 2. Metastatic rectal carcinoma 3. Paroxysmal atrial fibrillation, back in sinus mechanism 4. Hypertrophic cardiomyopathy with mitral regurgitation 5. Hypertension PLAN: 1. Increase beta-blane 2. Continue IV heparin until surgically stable and switch to oral anticoagulat ion 3. Wean Cleviprex as tolerated 4. Depending on her progress further recommendations will be made Objective - Vital Signs Vital signs: Vital Signs Temp 98.1 F 04/14/24 04:00 Pulse 97 04/14/24 06:00 Resp 17 04/14/24 06:00 BP 144/65 04/14/24 06:00 Pulse Ox 99 04/14/24 06:00 FiO2 30 04/11/24 10:16 Intake & Output 04/13/24 04/14/24 04/14/24 18:59 06:59 18:59 Intake Total 1545.013 893 Output Total 620 415 Balance 925.013 478 Intake: IV 853 693 0.9 KVO 70 110 Lactated Ringers 1,000 ml 650 550 @ 50 mls/hr IV .Q20H [facility] Rx#:[id number] metroNIDAZOLE-NS PMX 500 100 mg In Saline 1 100ml.bag @ 100 mls/hr IVPB Q8H [facility] Rx#:[id number] pressure bag 33 33 Intake, IV Titration 692.013 200 Amount Cefepime 2 gm In Sodium 400 100 Chloride 0.9% 100 ml @ 25 mls/hr IVPB Q8HR [facility] Rx# :[id number] Clevidipine Butyrate 25 10.134 mg In Empty Bag 1 bag @ 1 MG/HR 2 mls/hr IV .Q24H [facility] Rx#:[id number] Heparin Sod,Pork in 0.45% 181.879 NaCl 25,000 unit In 0.45 % NaCl 1 250ml.bag @ 12 UNITS/KG/HR 6.24 mls/hr IV .Q24H [facility] Rx#: [id number] metroNIDAZOLE-NS PMX 500 100 100 mg In Saline 1 100ml.bag @ 100 mls/hr IVPB Q8H [facility] Rx#:[id number] Output: Urine 620 415 Other: Voiding Method Indwelling Catheter Indwelling Catheter ABP, PAP, CO, CI - Last Documented Arterial Blood Pressure 122/51 - Labs CBC & Chem 7: 04/14/24 03:16 04/14/24 03:16 Labs: Abnormal Lab Results - Last 24 Hours (Table) 04/13/24 04/13/24 04/14/24 Range/Units 05:38 08:25 03:16 WBC 12.4 H (3.8-10.6) k/uL RBC 3.20 L (3.80-5.40) m/uL Hgb 10.1 L (11.4-16.0) gm/dL Hct 30.5 L (34.0-46.0) % Neutrophils # (1.3-7.7) k/uL Lymphocytes # (1.0-4.8) k/uL APTT 49.9 H 44.4 H (22.0-30.0) sec Sodium (137-145) mmol/L Chloride (98-107) mmol/L Carbon Dioxide (22-30) mmol/L BUN (7-17) mg/dL Creatinine (0.52-1.04) mg/dL Glucose (74-99) mg/dL 04/14/24 04/14/24 Range/Units 03:16 03:16 WBC (3.8-10.6) k/uL RBC 3.33 L (3.80-5.40) m/uL Hgb 10.2 L (11.4-16.0) gm/dL Hct 30.9 L (34.0-46.0) % Neutrophils # 8.4 H (1.3-7.7) k/uL Lymphocytes # 0.9 L (1.0-4.8) k/uL APTT (22.0-30.0) sec Sodium 136 L (137-145) mmol/L Chloride 109 H (98-107) mmol/L Carbon Dioxide 21 L (22-30) mmol/L BUN 18 H (7-17) mg/dL Creatinine 0.43 L (0.52-1.04) mg/dL Glucose 71 L (74-99) mg/dL Microbiology - Last 24 Hours (Table) 04/10/24 06:21 Blood Culture - Preliminary Blood
[2024-04-14] MEDS: METOPROLOL TARTRATE 50 MG TAB PO SCH (08:35)
--- NOTE | 2024-04-14 10:36 | P.PN ---
Subjective Progress Note Date: 04/14/24 Principal diagnosis: reason for consult: other (ICU management) This is a 68-year-old female with history of metastatic rectal cancer presented to the ER 04/10 mostly with abdominal pain. Patient has been receiving chemotherapy for her rectal cancer, her first treatment was March 29. Patient has not been feeling well since March 29, presented to the ER with few days history of abdominal pain, lower abdominal pain. Patient had some nausea, no vomiting. No bowel movement for the few days, patient noted no fever, no chills, CT of the abdomen pelvis showed pneumoperitoneum and possible perforation of the ascending colon. Patient underwent exploratory laparotomy sigmoid colon resection with end colostomy. Patient was found to have perforated diverticulitis of the sigmoid colon. Postoperatively, patient was sent to the ICU, intubated mechanically ventilated, she is presently on assist- control rate of 16, tidal volume increased to 350, FiO2 100% and PEEP of 5. ABG on FiO2 of 100% showed a pO2 of 392, pCO2 of 53 pH of 7.35, hence vent adjustment was made and she was on FiO2 of 40%, rate of 16, and tidal volume of 350. Patient is hemodynamically stable, not requiring any pressors, she is however requiring fluids for relatively marginal blood pressure and tachycardia. Her electrolytes showed low potassium of 3.0 that is being addressed accordingly bicarb is 27 renal profile is normal WBC count is 1.4 hemoglobin 13.8. Her WBC count on admission was 7.5 dropped down significantly to 1.4. Antibiotics miranda, patient received cefepime, she is also on metronidazole, patient could not be placed on Zosyn mostly because of her penicillin allergy. On her initial presentation she received Levaquin she also received a Rocephin. 04/11/2024 patient seen and examined at bedside. Patient still in the ICU intubated, sedated and mechanically ventilated. Ventilator settings are assist- control with a rate of 16, tidal volume 350, PEEP of 5 with FiO2 40%. No acute events overnight. Currently drips are normal saline 0.9% with a rate of 130 cc/h, propofol with a rate of 40 and Levophed of 0.02 mcg/kg/min. Chest x-ray shows atelectasis at the right lung base with ET tube, NG tube, and central venous catheters in place. ABG Shows CO2 22, CO2 41 and pH of 7.36. Other labs today show WBC 4.3, hemoglobin 11.5, platelet count 1 59,000, sodium 134, pota ssium 4.2 BUN 16, creatinine 0.58 glucose 102, calcium 7.6, phosphorus 3, magnesium 2.1 04/12/2024 patient seen and examined at bedside. Patient still in the ICU and was extubated around 11 AM yesterday at 04/11. Overnight, patient had an episode of A-fib with rapid ventricular response with associated hypotension. Currently on IV fluids normal saline at 100 cc, amiodarone IV at 0.5 mg/min, he xiao drip at 12 units/kg/h, and Cardizem drip at 1 mg/h. Chest x-ray today shows mild atelectatic type changes at the left base with central venous catheter, NG tube in place. Labs today showed WBC 9.9 hemoglobin 10.4 platelet count 190,000 PTT 36.1 PTT 12.1 INR 1.1 sodium 137 potassium 3.3 chloride 112 bicarb 21 BUN 18 creatinine 0.62 glucose 100 calcium 8.4 magnesium 2.1 04/13/2024 patient seen and examined at bedside. No acute events overnight. Postop exploratory laparotomy and sigmoid colon resection with end colostomy day 3. Currently on IV fluids normal saline at 100 cc, amiodarone IV at 0.5 mg/min and heparin drip at 12 units/kg/h. On day 4 of metronidazole IV and cefepime IV. Chest x-ray showed interval development of some mild infiltrate at the right base which is likely atelectasis with small left pleural effusion and NG tube and central venous catheter and port catheter seen and in place. Labs today show WBC 12.4, hemoglobin 10.1, platelet count 1 93,000 PTT 49.9, sodium 136, potassium 4, bicarb 18, BUN 19, creatinine 0.46, glucose 90, calcium 8.7. TSH less than 0.0 15 Free T41.72. Echocardiogram showed hyperdynamic LV, EF 60%, concerns of concentric LVH with mid ventricular obstruction with elevated gradients with peak gradients more than 100 mmHg, systolic anterior motion of mitral valve with moderate MR. 04/14/2024 patient seen and examined at bedside. No acute events overnight. Postop exploratory laparotomy and sigmoid colon resection with end colostomy day 4. Currently on IV fluids lactated Ringer's at 50 cc/h, and heparin 12 units/kg/h. On day 5, metronidazole IV and cefepime IV. Labs today show WBC 10.2, hemoglobin 10.2, platelet count 190,000 PTT 44.4, sodium 136, potassium 3.7, chloride 109, bicarb 21, BUN 18, creatinine 0.43, glucose 71, calcium 8.6 Review of systems: Could not assess Pertinent imaging and labs reviewed. Physical examination: Vital signs reviewed General: non toxic, no distress, on room air Derm: no unusual rashes/lesions, warm Head: atraumatic, normocephalic, symmetric Eyes: EOMI, anicteric sclera, pupils equal round reactive to light ENT: Nose and ears atraumatic Neck: No cervical lymphadenopathy, trachea midline, supple Mouth: no lip lesion, mucus membranes moist Cardiovascular: S1S2 regular, no murmur Lungs: Rhonchi at right basilar area, no rales, no accessory muscle use, central venous cath noted in right upper chest area Abdominal: soft, nontender to palpation, no guarding, colostomy bag seen on the left lower quadrant with output with stoma clean no erythema or swelling noted. Noted midline incision with dressing that is clean and dry and no erythema on surrounding skin Ext: no gross muscle atrophy, no contractures, positive dorsalis pedis pulse bilateral, no edema Neuro: Alert and oriented x 3, no focal neurologic deficits Psych: Appropriate mood and affect Assessment/Plan: Active problems: Paroxysmal atrial fibrillation, now in sinus rhythm Hypertension Pneumoperitoneum, status post exploratory laparotomy and sigmoid colon resection with end colostomy postoperative day #4 Acute hypoxic respiratory failure secondary to above, resolved Abdominal sepsis, resolved leukopenia secondary to sepsis, resolved Lactic acidosis secondary to abdominal sepsis, resolved Hypokalemia, resolved Chronic conditions: History of metastatic rectal carcinoma patient has been on chemotherapy recently History of hypertrophic obstructive cardiomyopathy Recommendations: Cardiac monitoring Supportive oxygenation as needed Still on NPO. Primary surgical service to decide on advancing diet Wean off Cleviprex. Currently held since 04/13 1839 Continue hydralazine 10mg IV every 6 hours as needed for elevated BP Continue IV fluids to lactated Ringer's at 50 cc/h Continue IV Cefepime and Flagyl for empiric coverage. Currently on day 5 Alprazolam 0.25mg twice daily as needed for anxiety Blood cultures no growth after 72 hours Will monitor daily labs electrolytes and CBC Cardiology following. Recommended amiodarone transitioned to PO 200mg thrice a day, continue IV heparin unless contraindicated and increase metoprolol 50mg PO twice daily. DVT prophylaxis: IV heparin GI prophylaxis: Protonix 40 mg IV daily Prognosis: depending on clinical course. Patient aware of plan and verbalized understanding. Patient can be downgraded to cardiac stepdown floor with telemetry. Becki Navarrete MD PGY-1/Plating Operator Dictation was produced using [employer] dictation software. please excuse any grammatical, word or spelling errors. Objective - Vital Signs Vital signs: Vital Signs Temp 98.1 F 04/14/24 04:00 Pulse 93 04/14/24 07:00 Resp 13 04/14/24 07:00 BP 168/92 04/14/24 07:00 Pulse Ox 97 04/14/24 07:43 FiO2 30 04/11/24 10:16 Intake & Output 04/13/24 04/14/24 04/14/24 18:59 06:59 18:59 Intake Total 1545.013 893 163 Output Total 620 415 30 Balance 925.013 478 133 Intake: IV 853 693 63 0.9 KVO 70 110 10 Lactated Ringers 1,000 ml 650 550 50 @ 50 mls/hr IV .Q20H [facility] Rx#:[id number] metroNIDAZOLE-NS PMX 500 100 mg In Saline 1 100ml.bag @ 100 mls/hr IVPB Q8H [facility] Rx#:[id number] pressure bag 33 33 3 Intake, IV Titration 692.013 200 100 Amount Cefepime 2 gm In Sodium 400 100 Chloride 0.9% 100 ml @ 25 mls/hr IVPB Q8HR [facility] Rx# :[id number] Clevidipine Butyrate 25 10.134 mg In Empty Bag 1 bag @ 1 MG/HR 2 mls/hr IV .Q24H [facility] Rx#:[id number] Heparin Sod,Pork in 0.45% 181.879 NaCl 25,000 unit In 0.45 % NaCl 1 250ml.bag @ 12 UNITS/KG/HR 6.24 mls/hr IV .Q24H [facility] Rx#: [id number] metroNIDAZOLE-NS PMX 500 100 100 100 mg In Saline 1 100ml.bag @ 100 mls/hr IVPB Q8H [facility] Rx#:[id number] Output: Urine 620 415 30 Other: Voiding Method Indwelling Catheter Indwelling Catheter ABP, PAP, CO, CI - Last Documented Arterial Blood Pressure 122/51 - Labs CBC & Chem 7: 04/14/24 03:16 04/14/24 03:16 Labs: Abnormal Lab Results - Last 24 Hours (Table) 04/13/24 04/14/24 04/14/24 Range/Units 08:25 03:16 03:16 RBC 3.33 L (3.80-5.40) m/uL Hgb 10.2 L (11.4-16.0) gm/dL Hct 30.9 L (34.0-46.0) % Neutrophils # 8.4 H (1.3-7.7) k/uL Lymphocytes # 0.9 L (1.0-4.8) k/uL APTT 49.9 H 44.4 H (22.0-30.0) sec Sodium (137-145) mmol/L Chloride (98-107) mmol/L Carbon Dioxide (22-30) mmol/L BUN (7-17) mg/dL Creatinine (0.52-1.04) mg/dL Glucose (74-99) mg/dL 04/14/24 Range/Units 03:16 RBC (3.80-5.40) m/uL Hgb (11.4-16.0) gm/dL Hct (34.0-46.0) % Neutrophils # (1.3-7.7) k/uL Lymphocytes # (1.0-4.8) k/uL APTT (22.0-30.0) sec Sodium 136 L (137-145) mmol/L Chloride 109 H (98-107) mmol/L Carbon Dioxide 21 L (22-30) mmol/L BUN 18 H (7-17) mg/dL Creatinine 0.43 L (0.52-1.04) mg/dL Glucose 71 L (74-99) mg/dL Microbiology - Last 24 Hours (Table) 04/10/24 06:21 Blood Culture - Preliminary Blood
--- NOTE | 2024-04-14 13:52 | P.PN ---
Subjective Progress Note Date: 04/14/24 SURGICAL PROGRESS NOTE CHIEF COMPLAINT: Perforated diverticulitis HISTORY OF PRESENT ILLNESS: Patient is postop day #4 status post exploratory laparotomy with sigmoid colectomy with end colostomy for perforated diverticulitis of the sigmoid colon. Patient is currently in the ICU. Her ostomy has had air in it. The nursing staff has had to burp the ostomy bag. No stool yet. NG tube with minimal output. Pain controlled. Patient is afebrile. WBC is 10.2 Hgb 10.2 platelets 190. She is on IV heparin for A-fib. PHYSICAL EXAM: VITAL SIGNS: Reviewed. GENERAL: Well-developed in no acute distress. ABDOMEN: Soft. Nondistended. Ostomy on the left with air present. No stool. Stoma pink. Midline incision dressing clean dry and intact. NEUROLOGIC: Alert and oriented. Cranial nerves II through XII grossly intact. ASSESSMENT: 1. Perforated diverticulitis PLAN: -Continue NG tube until seen by surgeon -Continue antibiotics -Continue pain management -Continue IV fluids Physician Clinical Applications Manager note has been reviewed by physician. Signing provider agrees with the documented findings, assessment, and plan of care. Objective - Vital Signs Vital signs: Vital Signs Temp 98.1 F 04/14/24 04:00 Pulse 80 04/14/24 13:00 Resp 21 04/14/24 13:00 BP 132/61 04/14/24 12:30 Pulse Ox 95 04/14/24 11:30 FiO2 30 04/11/24 10:16 Intake & Output 04/13/24 04/14/24 04/14/24 18:59 06:59 18:59 Intake Total 1545.013 893 541 Output Total 620 415 200 Balance 925.013 478 341 Intake: IV 853 693 441 0.9 KVO 70 110 70 Lactated Ringers 1,000 ml 650 550 350 @ 50 mls/hr IV .Q20H [facility] Rx#:[id number] metroNIDAZOLE-NS PMX 500 100 mg In Saline 1 100ml.bag @ 100 mls/hr IVPB Q8H [facility] Rx#:[id number] pressure bag 33 33 21 Intake, IV Titration 692.013 200 100 Amount Cefepime 2 gm In Sodium 400 100 Chloride 0.9% 100 ml @ 25 mls/hr IVPB Q8HR [facility] Rx# :[id number] Clevidipine Butyrate 25 10.134 mg In Empty Bag 1 bag @ 1 MG/HR 2 mls/hr IV .Q24H [facility] Rx#:[id number] Heparin Sod,Pork in 0.45% 181.879 NaCl 25,000 unit In 0.45 % NaCl 1 250ml.bag @ 12 UNITS/KG/HR 6.24 mls/hr IV .Q24H [facility] Rx#: [id number] metroNIDAZOLE-NS PMX 500 100 100 100 mg In Saline 1 100ml.bag @ 100 mls/hr IVPB Q8H [facility] Rx#:[id number] Output: Urine 620 415 200 Other: Voiding Method Indwelling Catheter Indwelling Catheter Indwelling Catheter ABP, PAP, CO, CI - Last Documented Arterial Blood Pressure 122/51 - Labs CBC & Chem 7: 04/14/24 03:16 04/14/24 03:16 Labs: Abnormal Lab Results - Last 24 Hours (Table) 04/14/24 04/14/24 04/14/24 Range/Units 03:16 03:16 03:16 RBC 3.33 L (3.80-5.40) m/uL Hgb 10.2 L (11.4-16.0) gm/dL Hct 30.9 L (34.0-46.0) % Neutrophils # 8.4 H (1.3-7.7) k/uL Lymphocytes # 0.9 L (1.0-4.8) k/uL APTT 44.4 H (22.0-30.0) sec Sodium 136 L (137-145) mmol/L Chloride 109 H (98-107) mmol/L Carbon Dioxide 21 L (22-30) mmol/L BUN 18 H (7-17) mg/dL Creatinine 0.43 L (0.52-1.04) mg/dL Glucose 71 L (74-99) mg/dL Microbiology - Last 24 Hours (Table) 04/10/24 06:21 Blood Culture - Preliminary Blood
--- NOTE | 2024-04-14 14:08 | P.PN ---
Subjective Progress Note Date: 04/14/24 patient is a 68-year-old lady with past medical history significant for metastatic rectal cancer brought to the ER for evaluation of lower abdominal pain. Patient that she has been not been feeling well for the last few days. Patient stated that she was having lower quad abdominal pain which was generali zed, nonradiating, no aggravating or leaving factors associated abdominal pain. Patient also complaining of constipation and has not had a bowel movement in a number of days. There was no complaint of fever or chills. There was complaint of nausea but no vomiting. Patient stated she recently started chemotherapy. Because of these symptoms, patient presented to the ER Initial lab work done in the ER showed WBC 7.5, hemoglobin 9.5, platelet count 335, sodium 130, potassium 3, BUN 14, creatinine 0.53, lactate 4.5 EKG done in the ER showed heart rate of 116 , no ST segment elevation or depres stefania seen, no T-wave inversions seen. CT abdominal pelvis done showed large pneumoperitoneum, mild circumferential wall thickening of a short segment of ascending colon and proximal sigmoid colon in associated with diverticula suggest diverticulitis versus colitis Patient admitted to internal medicine service 04/11. Patient seen and examined. Patient currently intubated, opening eyes and following commands. 04/12. Patient seen examined. Patient is currently extubated. Alert, currently has NG tube in. Lab work done this morning showed WBC 9.9, hemoglobin 10.4, platelet count 190, sodium 137, potassium 3.3, BUN 18, creatinine 0.62, glucose 100. Patient went to [facility] overnight, currently on amiodarone. 04/13. Patient seen and examined. CurrentlyLaying in the chair. Still has NG tube in. Stated pain has slightly improved. Currently on IV amiodarone, heparin. 04/14. Patient seen examined. States she feels better. Patient started on clear liquid diet . Blood work done this morning showed WBC 10.2, hemoglobin 9.2, platelet count 190, sodium 137 potassium 3.7, BUN 18, creatinine 0.43. Patient currently on oral amiodarone and IV heparin REVIEW OF SYSTEMS: Denies any chest pain. Complaining of abdominal pain but states improved from yesterday. Vital signs stable. PHYSICAL EXAMINATION: GENERAL: The patient is alert HEENT: Pupils are round and equally reacting to light. EOMI. No scleral icterus. No conjunctival pallor. Normocephalic, atraumatic. No pharyngeal erythema. No thyromegaly. CARDIOVASCULAR: S1 and S2 present. No murmurs, rubs, or gallops. PULMONARY: Chest is clear to auscultation, no wheezing or crackles. ABDOMEN: Tenderness, surgical incision seen, ostomy seen no palpable organomegaly. MUSCULOSKELETAL: No joint swelling or deformity. EXTREMITIES: No cyanosis, clubbing, or pedal edema. NEUROLOGICAL: Moving all extremities SKIN: No rashes. Assessment and plan Pneumoperitoneum Sepsis A-fib with RVR Acute hypoxic respiratory failure Acute sigmoid colon perforation Acute diverticulitis Hyponatremia Hypokalemia Lactic acidosis History of rectal cancer Monitor vital signs Monitor CBC Monitor CMP Continue telemetry monitoring status post exploratory laparotomy and sigmoid colon resection with end colostomy Continue IV fluids Continue amiodarone Continue IV heparin Aggressive bronchopulmonary hygiene Continue IV cefepime, Flagyl Start clear liquid diet Pulmonology following Surgery following ID following Labs and medication were reviewed.. Continue same treatment. Continue with symptomatic treatment. Resume home medication. Monitor labs and vitals. DVT and GI prophylaxis. Further recommendations as per clinical course of the patient Dictation was produced using [employer] dictation software. please excuse any grammatical, word or spelling errors. Objective - Vital Signs Vital signs: Vital Signs Temp 98.1 F 04/14/24 04:00 Pulse 80 04/14/24 13:00 Resp 21 04/14/24 13:00 BP 132/61 04/14/24 12:30 Pulse Ox 95 04/14/24 11:30 FiO2 30 04/11/24 10:16 Intake & Output 04/13/24 04/14/24 04/14/24 18:59 06:59 18:59 Intake Total 1545.013 893 541 Output Total 620 415 200 Balance 925.013 478 341 Intake: IV 853 693 441 0.9 KVO 70 110 70 Lactated Ringers 1,000 ml 650 550 350 @ 50 mls/hr IV .Q20H ABBEY Rx#:[id number] metroNIDAZOLE-NS PMX 500 100 mg In Saline 1 100ml.bag @ 100 mls/hr IVPB Q8H ABBEY Rx#:[id number] pressure bag 33 33 21 Intake, IV Titration 692.013 200 100 Amount Cefepime 2 gm In Sodium 400 100 Chloride 0.9% 100 ml @ 25 mls/hr IVPB Q8HR ABBEY Rx# :[id number] Clevidipine Butyrate 25 10.134 mg In Empty Bag 1 bag @ 1 MG/HR 2 mls/hr IV .Q24H ABBEY Rx#:[id number] Heparin Sod,Pork in 0.45% 181.879 NaCl 25,000 unit In 0.45 % NaCl 1 250ml.bag @ 12 UNITS/KG/HR 6.24 mls/hr IV .Q24H ABBEY Rx#: [id number] metroNIDAZOLE-NS PMX 500 100 100 100 mg In Saline 1 100ml.bag @ 100 mls/hr IVPB Q8H ABBEY Rx#:[id number] Output: Urine 620 415 200 Other: Voiding Method Indwelling Catheter Indwelling Catheter Indwelling Catheter ABP, PAP, CO, CI - Last Documented Arterial Blood Pressure 122/51 - Labs CBC & Chem 7: 04/14/24 03:16 04/14/24 03:16 Labs: Abnormal Lab Results - Last 24 Hours (Table) 04/14/24 04/14/24 04/14/24 Range/Units 03:16 03:16 03:16 RBC 3.33 L (3.80-5.40) m/uL Hgb 10.2 L (11.4-16.0) gm/dL Hct 30.9 L (34.0-46.0) % Neutrophils # 8.4 H (1.3-7.7) k/uL Lymphocytes # 0.9 L (1.0-4.8) k/uL APTT 44.4 H (22.0-30.0) sec Sodium 136 L (137-145) mmol/L Chloride 109 H (98-107) mmol/L Carbon Dioxide 21 L (22-30) mmol/L BUN 18 H (7-17) mg/dL Creatinine 0.43 L (0.52-1.04) mg/dL Glucose 71 L (74-99) mg/dL Microbiology - Last 24 Hours (Table) 04/10/24 06:21 Blood Culture - Preliminary Blood
--- NOTE | 2024-04-14 15:43 | P.PN ---
Subjective Progress Note Date: 04/14/24 Principal diagnosis: Reason for follow-up is parotitis perforated diverticulitis Patient is a 68-year-old female with a past medical history significant for hypertension osteoarthritis hypothyroidism, metastatic rectal cancer previous history of smoking presenting to the hospital for evaluation of abdominal pain, the patient CT has been suggestive of pneumoperitoneum with diagnosis of perforated sigmoid diverticulitis patient is status post laparotomy sigmoid resection and end colostomy. On today's evaluation that is 04/14/2024,the patient remains to be afebrile, patient is on 2 L nasal cannula supplemental oxygen and denies any shortness of breath no chest pain or cough.Patient denies having any nausea or vomiting, abdominal pain is currently controlled. Patient white count normalized to 10.2, creatinine 0.43 blood cultures are pending Objective - Vital Signs Vital signs: Vital Signs Temp 98.1 F 04/14/24 04:00 Pulse 80 04/14/24 13:00 Resp 21 04/14/24 13:00 BP 132/61 04/14/24 12:30 Pulse Ox 95 04/14/24 11:30 FiO2 30 04/11/24 10:16 Intake & Output 04/13/24 04/14/24 04/14/24 18:59 06:59 18:59 Intake Total 1545.013 893 541 Output Total 620 415 200 Balance 925.013 478 341 Intake: IV 853 693 441 0.9 KVO 70 110 70 Lactated Ringers 1,000 ml 650 550 350 @ 50 mls/hr IV .Q20H ABBEY Rx#:[id number] metroNIDAZOLE-NS PMX 500 100 mg In Saline 1 100ml.bag @ 100 mls/hr IVPB Q8H ABBEY Rx#:[id number] pressure bag 33 33 21 Intake, IV Titration 692.013 200 100 Amount Cefepime 2 gm In Sodium 400 100 Chloride 0.9% 100 ml @ 25 mls/hr IVPB Q8HR ABBEY Rx# :[id number] Clevidipine Butyrate 25 10.134 mg In Empty Bag 1 bag @ 1 MG/HR 2 mls/hr IV .Q24H ABBEY Rx#:[id number] Heparin Sod,Pork in 0.45% 181.879 NaCl 25,000 unit In 0.45 % NaCl 1 250ml.bag @ 12 UNITS/KG/HR 6.24 mls/hr IV .Q24H ABBEY Rx#: [id number] metroNIDAZOLE-NS PMX 500 100 100 100 mg In Saline 1 100ml.bag @ 100 mls/hr IVPB Q8H ABBEY Rx#:[id number] Output: Urine 620 415 200 Other: Voiding Method Indwelling Catheter Indwelling Catheter Indwelling Catheter ABP, PAP, CO, CI - Last Documented Arterial Blood Pressure 122/51 - Exam GENERAL DESCRIPTION: An elderly female lying in bed in no distress RESPIRATORY SYSTEM: Unlabored breathing , decreased breath sounds at bases HEART: S1 S2 regular rate and rhythm , ABDOMEN: Soft , mild tenderness EXTREMITIES: No edema feet - Labs CBC & Chem 7: 04/14/24 03:16 04/14/24 03:16 Labs: Abnormal Lab Results - Last 24 Hours (Table) 04/14/24 04/14/24 04/14/24 Range/Units 03:16 03:16 03:16 RBC 3.33 L (3.80-5.40) m/uL Hgb 10.2 L (11.4-16.0) gm/dL Hct 30.9 L (34.0-46.0) % Neutrophils # 8.4 H (1.3-7.7) k/uL Lymphocytes # 0.9 L (1.0-4.8) k/uL APTT 44.4 H (22.0-30.0) sec Sodium 136 L (137-145) mmol/L Chloride 109 H (98-107) mmol/L Carbon Dioxide 21 L (22-30) mmol/L BUN 18 H (7-17) mg/dL Creatinine 0.43 L (0.52-1.04) mg/dL Glucose 71 L (74-99) mg/dL Microbiology - Last 24 Hours (Table) 04/10/24 06:21 Blood Culture - Preliminary Blood Assessment and Plan (1) Sepsis Current Visit: Yes Status: Acute Code(s): A41.9 - SEPSIS, UNSPECIFIED ORGANISM SNOMED Code(s): 96952610 (2) Peritonitis Current Visit: Yes Status: Acute Code(s): K65.9 - PERITONITIS, UNSPECIFIED SNOMED Code(s): 54988413 (3) Perforation of sigmoid colon due to diverticulitis Current Visit: Yes Status: Acute Priority: High Code(s): K57.20 - DVTRCLI OF LG INT W PERFORATION AND ABSCESS W/O BLEEDING SNOMED Code(s): 3364324426654522 Plan: 1patient presented to hospital with sepsis in this patient who did have hypotension tachycardia leukopenia meeting criteria for SIRS source is likely perforated sigmoid diverticulitis with peritonitis, we will need to cover for the enteric gram-negative both aerobes and anaerobes keeping in mind her history of metastatic rectal cancer chemo and has been out of the hospital need to cover for resistant gram-negative pathogen 2-penicillin allergy therapy limit the number of antibiotics safe to use 3-patient is afebrile, the patient white count has normalized 4patient currently being treated with h cefepime 2 g every 8 hours Flagyl 500 mg every 8 hour because of her penicillin allergy and monitor clinical course closely Dictation was produced using [employer] dictation software. please excuse any grammatical, word or spelling errors. Time with Patient: Less than 30
--- NOTE | 2024-04-14 17:57 | CDI ---
Documentation Clarification Form Date: 04/14/2024 05:27:31 PM From: Sameera Barclay RN CCDS Phone: [phone] Admit Date: 04/10/2024 08:15:00 AM Patient Name: Kaitlyn Alvarez Visit Number: [id number] Discharge Date: ATTENTION: The Clinical Documentation Specialists (CDI) and [facility] Coding Staff appreciate your assistance in clarifying documentation. Please respond to the clarification below the line at the bottom and electronically sign. The CDI & [facility] Coding staff will review the response and follow-up if needed. Please note: Queries are made part of the Legal Health Record. If you have any questions, please contact the author of this message via ITS. Dr Hossein Matamoros Acute hypoxic respiratory failure is documented 04/14 Pulmonary progress note. Additional clarification regarding Acute respiratory failure is requested. Patients Admitting Diagnosis: Pneumoperitoneum Post-Operative Diagnosis: Perforated Diverticulitis of Sigmoid Colon Procedure performed: Exploratory Laparotomy; Sigmoid Colon Resection with End Colostomy. History/Risk Factors: 68 year old female presented to the ED with lower generalized abdominal pain and not feeling well for a few days and constipation. Medical History: Metastatic rectal cancer, recently started chemotherapy. HTN, Thyroid disorder and Hemorrhoids. 04/10, HP Clinical Indicators: 04/10, Pulmonary Respiratory exam: Diminished breath sound bilaterally VSS, 04/10 04:41: B/P 170/108, HR 122, Temp 98.4F, RR 16, SpO2 97% ra 04/10 11:10: B/P 138/96, HR 139, Temp 98.8fF Tympanic, RR 18, SpO2 95% 3L nc 04/10 13:45 B/P 130/195, HR 124, Temp 96.8F Oral, RR 14, SpO2 100% Mechanical ventilator. 04/11 10:45 B/P 151/78, HR 91, RR 16, SpO2 98% FIO2 04/11 12:00 B/P 172/79, HR 101, Temp 97.7F Axillary, RR 15 SpO2 97% 3L nc Documentation 04/14, Pulmonary note: Assessment/Plan: Active problems: Paroxysmal atrial fibrillation, now in sinus rhythm Hypertension Pneumoperitoneum, status post exploratory laparotomy and sigmoid colon resection with end colostomy postoperative day #4 Acute hypoxic respiratory failure secondary to above, resolved Treatment: 04/10 04/11 12:30 Mechanical Ventilator, 04/11 12:00 04/11 19:30 nasal cannula Please clarify if Acute hypoxic respiratory failure is a complication of the surgical procedure? [ ] Yes [ X] No [ ] Other, please specify [ ] Unable to determine (Template Last Revised: June 2020) MTDD
--- NOTE | 2024-04-14 18:05 | P.PN ---
Subjective Progress Note Date: 04/14/24 At todays visit, pt in bedside chair, reporting no acute changes. Pt afebrile, continues on IV abx. WBC 10.2, hgb 10.2, plt 190 Objective - Vital Signs Vital signs: Vital Signs Temp 98.1 F 04/14/24 04:00 Pulse 76 04/14/24 11:00 Resp 16 04/14/24 11:00 BP 131/62 04/14/24 11:00 Pulse Ox 94 L 04/14/24 11:00 FiO2 30 04/11/24 10:16 Intake & Output 04/13/24 04/14/24 04/14/24 18:59 06:59 18:59 Intake Total 1545.013 893 289 Output Total 620 415 80 Balance 925.013 478 209 Intake: IV 853 693 189 0.9 KVO 70 110 30 Lactated Ringers 1,000 ml 650 550 150 @ 50 mls/hr IV .Q20H ABBEY Rx#:[id number] metroNIDAZOLE-NS PMX 500 100 mg In Saline 1 100ml.bag @ 100 mls/hr IVPB Q8H ABBEY Rx#:[id number] pressure bag 33 33 9 Intake, IV Titration 692.013 200 100 Amount Cefepime 2 gm In Sodium 400 100 Chloride 0.9% 100 ml @ 25 mls/hr IVPB Q8HR ABBEY Rx# :[id number] Clevidipine Butyrate 25 10.134 mg In Empty Bag 1 bag @ 1 MG/HR 2 mls/hr IV .Q24H ABBEY Rx#:[id number] Heparin Sod,Pork in 0.45% 181.879 NaCl 25,000 unit In 0.45 % NaCl 1 250ml.bag @ 12 UNITS/KG/HR 6.24 mls/hr IV .Q24H ABBEY Rx#: [id number] metroNIDAZOLE-NS PMX 500 100 100 100 mg In Saline 1 100ml.bag @ 100 mls/hr IVPB Q8H ABBEY Rx#:[id number] Output: Urine 620 415 80 Other: Voiding Method Indwelling Catheter Indwelling Catheter ABP, PAP, CO, CI - Last Documented Arterial Blood Pressure 122/51 - Constitutional General appearance: Present: no acute distress - EENT EENT Comment(s): NG tube in place Eyes: Present: EOMI ENT: Present: hearing grossly normal - Respiratory Details: breathing even and unlabored - Cardiovascular Details: skin warm and dry - Gastrointestinal Gastrointestinal Comment(s): ostomy in situ - Integumentary Integumentary: Absent: cyanotic - Psychiatric Psychiatric: Present: A&O x's 3 - Labs CBC & Chem 7: 04/14/24 03:16 04/14/24 03:16 Labs: Abnormal Lab Results - Last 24 Hours (Table) 04/14/24 04/14/24 04/14/24 Range/Units 03:16 03:16 03:16 RBC 3.33 L (3.80-5.40) m/uL Hgb 10.2 L (11.4-16.0) gm/dL Hct 30.9 L (34.0-46.0) % Neutrophils # 8.4 H (1.3-7.7) k/uL Lymphocytes # 0.9 L (1.0-4.8) k/uL APTT 44.4 H (22.0-30.0) sec Sodium 136 L (137-145) mmol/L Chloride 109 H (98-107) mmol/L Carbon Dioxide 21 L (22-30) mmol/L BUN 18 H (7-17) mg/dL Creatinine 0.43 L (0.52-1.04) mg/dL Glucose 71 L (74-99) mg/dL Microbiology - Last 24 Hours (Table) 04/10/24 06:21 Blood Culture - Preliminary Blood Assessment and Plan (1) Colon adenocarcinoma Current Visit: Yes Status: Acute Priority: High Code(s): C18.9 - MALIGNANT NEOPLASM OF COLON, UNSPECIFIED SNOMED Code(s): 509296031 (2) Perforation of sigmoid colon due to diverticulitis Current Visit: Yes Status: Acute Priority: High Code(s): K57.20 - DVTRCLI OF LG INT W PERFORATION AND ABSCESS W/O BLEEDING SNOMED Code(s): 4512956072570221 Plan: Perforation of the sigmoid colon due to diverticulitis -Patient is status post exploratory laparotomy with sigmoid resection and end colostomy -Pathology of surgical resection showing diverticulitis with subserosal abscess and acute serositis consistent with perforated viscus. Negative for malignancy -Defer ICU care and Surgical management to the Critical Care team and Surgery. . Stage IV colon adenocarcinoma -Patient had her first cycle of treatment on 03/29. Patient did not do well with treatment, complaints of nausea, generally feeling unwell. -Postop, no treatment would be offered to patient until she is completely recovered from surgery and her acute situation. Not certain if patient wants to consider any more treatment. Will wait until patient has recovered adequately before discussing the same. We will continue to follow patient's clinical course
[2024-04-15 07:13] LABS: Basophils % (A) 0 %; Eosinophils % (A) 0 %; HCT 32.5 % (34.0-46.0); HGB 10.5 gm/dL (11.4-16.0); Hypochromasia Slight; Lymphocytes # (A) 1.1 k/uL (1.0-4.8); Lymphocytes % (A) 11 %; MCH 30.1 pg (25.0-35.0); MCHC 32.3 g/dL (31.0-37.0); MCV 93.1 fL (80.0-100.0); Mean Platelet Volume 8.2; Monocytes # (A) 0.6 k/uL (0-1.0); Monocytes % (A) 6 %; Neutrophils # (A) 8.2 k/uL (1.3-7.7); Neutrophils % (A) 81 %; Platelet Count 175 k/uL (150-450); RBC 3.49 m/uL (3.80-5.40); RDW 14.4 % (11.5-15.5); WBC 10.2 k/uL (3.8-10.6)
[2024-04-15 07:25] LABS: African American GFR (CKD) >90 (>60 ml/min/1.73 sqM); Anion Gap 5 mmol/L; Blood Urea Nitrogen 18 mg/dL (7-17); Calcium 8.5 mg/dL (8.4-10.2); Carbon Dioxide 23 mmol/L (22-30); Chloride 107 mmol/L (98-107); Glucose 106 mg/dL (74-99); Non-African American GFR(CKD) >90 (>60 ml/min/1.73 sqM); Potassium 3.7 mmol/L (3.5-5.1); Sodium 135 mmol/L (137-145)
--- NOTE | 2024-04-15 07:30 | P.PN ---
Subjective Progress Note Date: 04/15/24 PROGRESS NOTE The patient is a 68-year-old female diagnosed recently with metastatic rectal carcinoma, started chemotherapy, presented with pneumoperitoneum and underwent colon resection and colostomy. She had episode of atrial fibrillation postoperatively. She is back in sinus mechanism. She is sitting up in the chair, has abdominal discomfort but no chest discomfort. She continues to be in sinus mechanism on Cleviprex for hypertension. She has no evidence of ventricular ectopic activity. She has been changed to oral amiodarone but continues to be on IV heparin. She continues to have an NG tube with no significant discharge from her colostomy. She had an echocardiogram done that showed a preserved systolic function with hypertrophic obstructive cardiomyopathy and MARISSA with moderate to severe mitral regurgitation. She has the diagnosis of hypertrophic cardiomyopathy in the past. April 15: The patient feels better overall, sitting up in the chair, continues to be in sinus mechanism. Her NG tube was removed. She denies any chest discomfort, dizziness or palpitations. She has no nausea. Hemodynamically she is stable on no vasopressors. She continues to be on IV heparin but she is able to take oral medications at this time. Medications: Amiodarone 200 mg 3 times daily, IV heparin, metoprolol tartrate 50 mg twice a day PHYSICAL EXAMINATION: Blood pressure 132/60 heart rate 84 LUNGS: Clear to auscultation HEART: Regular rate and rhythm, S1, S2. No S3. Holosystolic murmur at the apex with a systolic murmur at the base ABDOMEN: Soft, positive bowel sounds, colostomy noted EXTREMETIES: No edema LAB: Hemoglobin 10.5, BUN 18, creatinine 0.39, potassium 3.7 IMPRESSION: 1. Status post colon resection and colostomy for pneumoperitoneum 2. Metastatic rectal carcinoma 3. Paroxysmal atrial fibrillation, back in sinus mechanism 4. Hypertrophic cardiomyopathy with mitral regurgitation 5. Hypertension PLAN: 1. Switch to oral anticoagulation with Eliquis 5 mg twice a day 2. Follow blood pressure and if needed add ODILON inhibitor 3. Increase physical activity 4. Await input of oncology service regarding prognosis. Objective - Vital Signs Vital signs: Vital Signs Temp 98.4 F 04/15/24 04:00 Pulse 90 04/15/24 07:00 Resp 12 04/15/24 07:00 BP 132/62 04/15/24 07:00 Pulse Ox 97 04/15/24 07:00 FiO2 40 04/14/24 16:00 Intake & Output 04/14/24 04/15/24 04/15/24 18:59 06:59 18:59 Intake Total 1210 503 Output Total 280 280 Balance 930 223 Intake: IV 610 303 0.9 KVO 80 Lactated Ringers 1,000 ml 500 300 @ 50 mls/hr IV .Q20H ABBEY Rx#:[id number] pressure bag 30 3 Intake, IV Titration 350 200 Amount Cefepime 2 gm In Sodium 100 Chloride 0.9% 100 ml @ 25 mls/hr IVPB Q8HR ABBEY Rx# :[id number] Heparin Sod,Pork in 0.45% 250 NaCl 25,000 unit In 0.45 % NaCl 1 250ml.bag @ 12 UNITS/KG/HR 6.24 mls/hr IV .Q24H ABBEY Rx#: [id number] metroNIDAZOLE-NS PMX 500 100 100 mg In Saline 1 100ml.bag @ 100 mls/hr IVPB Q8H ABBEY Rx#:[id number] Oral 250 Output: Urine 280 280 Other: Voiding Method Indwelling Catheter Indwelling Catheter ABP, PAP, CO, CI - Last Documented Arterial Blood Pressure 122/51 - Labs CBC & Chem 7: 04/15/24 05:08 04/15/24 05:08 Labs: Abnormal Lab Results - Last 24 Hours (Table) 04/15/24 04/15/24 04/15/24 Range/Units 05:08 05:08 05:08 RBC 3.49 L (3.80-5.40) m/uL Hgb 10.5 L (11.4-16.0) gm/dL Hct 32.5 L (34.0-46.0) % Neutrophils # 8.2 H (1.3-7.7) k/uL APTT 53.7 H (22.0-30.0) sec Sodium 135 L (137-145) mmol/L BUN 18 H (7-17) mg/dL Creatinine 0.39 L (0.52-1.04) mg/dL Glucose 106 H (74-99) mg/dL
[2024-04-15] MEDS: AMIODARONE 200 MG TAB PO SCH (08:26)
[2024-04-15] MEDS: APIXABAN 5 MG TAB PO SCH (08:26)
--- NOTE | 2024-04-15 11:25 | P.PN ---
Subjective Progress Note Date: 04/15/24 Principal diagnosis: reason for consult: other (ICU management) This is a 68-year-old female with history of metastatic rectal cancer presented to the ER 04/10 mostly with abdominal pain. Patient has been receiving chemotherapy for her rectal cancer, her first treatment was March 29. Patient has not been feeling well since March 29, presented to the ER with few days history of abdominal pain, lower abdominal pain. Patient had some nausea, no vomiting. No bowel movement for the few days, patient noted no fever, no chills, CT of the abdomen pelvis showed pneumoperitoneum and possible perforation of the ascending colon. Patient underwent exploratory laparotomy sigmoid colon resection with end colostomy. Patient was found to have perforated diverticulitis of the sigmoid colon. Postoperatively, patient was sent to the ICU, intubated mechanically ventilated, she is presently on assist- control rate of 16, tidal volume increased to 350, FiO2 100% and PEEP of 5. ABG on FiO2 of 100% showed a pO2 of 392, pCO2 of 53 pH of 7.35, hence vent adjustment was made and she was on FiO2 of 40%, rate of 16, and tidal volume of 350. Patient is hemodynamically stable, not requiring any pressors, she is however requiring fluids for relatively marginal blood pressure and tachycardia. Her electrolytes showed low potassium of 3.0 that is being addressed accordingly bicarb is 27 renal profile is normal WBC count is 1.4 hemoglobin 13.8. Her WBC count on admission was 7.5 dropped down significantly to 1.4. Antibiotics miranda, patient received cefepime, she is also on metronidazole, patient could not be placed on Zosyn mostly because of her penicillin allergy. On her initial presentation she received Levaquin she also received a Rocephin. 04/11/2024 patient seen and examined at bedside. Patient still in the ICU intubated, sedated and mechanically ventilated. Ventilator settings are assist- control with a rate of 16, tidal volume 350, PEEP of 5 with FiO2 40%. No acute events overnight. Currently drips are normal saline 0.9% with a rate of 130 cc/h, propofol with a rate of 40 and Levophed of 0.02 mcg/kg/min. Chest x-ray shows atelectasis at the right lung base with ET tube, NG tube, and central venous catheters in place. ABG Shows CO2 22, CO2 41 and pH of 7.36. Other labs today show WBC 4.3, hemoglobin 11.5, platelet count 1 59,000, sodium 134, pota ssium 4.2 BUN 16, creatinine 0.58 glucose 102, calcium 7.6, phosphorus 3, magnesium 2.1 04/12/2024 patient seen and examined at bedside. Patient still in the ICU and was extubated around 11 AM yesterday at 04/11. Overnight, patient had an episode of A-fib with rapid ventricular response with associated hypotension. Currently on IV fluids normal saline at 100 cc, amiodarone IV at 0.5 mg/min, he xiao drip at 12 units/kg/h, and Cardizem drip at 1 mg/h. Chest x-ray today shows mild atelectatic type changes at the left base with central venous catheter, NG tube in place. Labs today showed WBC 9.9 hemoglobin 10.4 platelet count 190,000 PTT 36.1 PTT 12.1 INR 1.1 sodium 137 potassium 3.3 chloride 112 bicarb 21 BUN 18 creatinine 0.62 glucose 100 calcium 8.4 magnesium 2.1 04/13/2024 patient seen and examined at bedside. No acute events overnight. Postop exploratory laparotomy and sigmoid colon resection with end colostomy day 3. Currently on IV fluids normal saline at 100 cc, amiodarone IV at 0.5 mg/min and heparin drip at 12 units/kg/h. On day 4 of metronidazole IV and cefepime IV. Chest x-ray showed interval development of some mild infiltrate at the right base which is likely atelectasis with small left pleural effusion and NG tube and central venous catheter and port catheter seen and in place. Labs today show WBC 12.4, hemoglobin 10.1, platelet count 1 93,000 PTT 49.9, sodium 136, potassium 4, bicarb 18, BUN 19, creatinine 0.46, glucose 90, calcium 8.7. TSH less than 0.0 15 Free T41.72. Echocardiogram showed hyperdynamic LV, EF 60%, concerns of concentric LVH with mid ventricular obstruction with elevated gradients with peak gradients more than 100 mmHg, systolic anterior motion of mitral valve with moderate MR. 04/14/2024 patient seen and examined at bedside. No acute events overnight. Postop exploratory laparotomy and sigmoid colon resection with end colostomy day 4. Currently on IV fluids lactated Ringer's at 50 cc/h, and heparin 12 units/kg/h. On day 5, metronidazole IV and cefepime IV. Labs today show WBC 10.2, hemoglobin 10.2, platelet count 190,000 PTT 44.4, sodium 136, potassium 3.7, chloride 109, bicarb 21, BUN 18, creatinine 0.43, glucose 71, calcium 8.6 04/15/2024 patient seen and examined at bedside. No acute events overnight. NG tube removed. Patient started on clear liquid diet yesterday. Postop exploratory laparotomy and sigmoid colon resection with end colostomy day 5. Currently on IV fluids lactated Ringer's at 50 cc/h. Labs today show WBC 10.2, hemoglobin 10.5, platelet count 1 75,000, PTT 53.7, sodium 135, potassium 3.7, bicarb 23, chloride 107, BUN 18, creatinine 0.39, glucose 106, calcium 8.5 Review of systems: Pertinent positives and negatives as discussed in HPI, a complete review of systems was performed and all other systems are negative. Pertinent imaging and labs reviewed. Physical examination: Vital signs reviewed General: non toxic, no distress, on room air Derm: no unusual rashes/lesions, warm Head: atraumatic, normocephalic, symmetric Eyes: EOMI, anicteric sclera, pupils equal round reactive to light ENT: Nose and ears atraumatic Neck: No cervical lymphadenopathy, trachea midline, supple Mouth: no lip lesion, mucus membranes moist Cardiovascular: S1S2 regular, no murmur Lungs: CTA bilateral, no rales, no accessory muscle use, central venous cath n oted in right upper chest area Abdominal: soft, nontender to palpation, no guarding, colostomy bag seen on the left lower quadrant with output with stoma clean no erythema or swelling noted. Noted midline incision with dressing that is clean and dry and no erythema on surrounding skin Ext: no gross muscle atrophy, no contractures, positive dorsalis pedis pulse bilateral, no edema Neuro: Alert and oriented x 3, no focal neurologic deficits Psych: Appropriate mood and affect Assessment/Plan: Active problems: Paroxysmal atrial fibrillation, now in sinus rhythm Hypertension, improved Pneumoperitoneum, status post exploratory laparotomy and sigmoid colon resection with end colostomy postoperative day #4 Acute hypoxic respiratory failure secondary to above, resolved Abdominal sepsis, resolved leukopenia secondary to sepsis, resolved Lactic acidosis secondary to abdominal sepsis, resolved Hypokalemia, resolved Chronic conditions: History of metastatic rectal carcinoma patient has been on chemotherapy recently History of hypertrophic obstructive cardiomyopathy Recommendations: Cardiac monitoring Supportive oxygenation as needed Diet advanced to clear liquid diet. Advance diet as tolerated per surgical service. Continue hydralazine 10mg IV every 6 hours as needed for elevated BP Discontinue IV fluids Continue IV Cefepime and Flagyl for empiric coverage per surgical service. Currently on day 6 Alprazolam 0.25mg twice daily as needed for anxiety Blood cultures no growth after 72 hours Will monitor daily labs electrolytes and CBC Cardiology following. Recommended amiodarone transitioned to PO 200mg twice a day, IV heparin discontinued, Eliquis 5mg PO twice daily initiated. Metoprolol 50mg PO twice daily. DVT prophylaxis: Eliquis 5mg PO twice daily GI prophylaxis: Protonix 40 mg IV daily Prognosis: depending on clinical course. Patient aware of plan and verbalized understanding. Patient can be downgraded to cardiac stepdown floor with telemetry. Becki Navarrete MD PGY-1/Middleware Architect Dictation was produced using [email or web address] dictation software. please excuse any grammatical, word or spelling errors. Objective - Vital Signs Vital signs: Vital Signs Temp 98.4 F 04/15/24 04:00 Pulse 90 04/15/24 07:00 Resp 12 04/15/24 07:00 BP 132/62 04/15/24 07:00 Pulse Ox 97 04/15/24 07:00 FiO2 40 04/14/24 16:00 Intake & Output 04/14/24 04/15/24 04/15/24 18:59 06:59 18:59 Intake Total 1210 503 Output Total 280 280 Balance 930 223 Intake: IV 610 303 0.9 KVO 80 Lactated Ringers 1,000 ml 500 300 @ 50 mls/hr IV .Q20H ABBEY Rx#:[id number] pressure bag 30 3 Intake, IV Titration 350 200 Amount Cefepime 2 gm In Sodium 100 Chloride 0.9% 100 ml @ 25 mls/hr IVPB Q8HR ABBEY Rx# :[id number] Heparin Sod,Pork in 0.45% 250 NaCl 25,000 unit In 0.45 % NaCl 1 250ml.bag @ 12 UNITS/KG/HR 6.24 mls/hr IV .Q24H ABBEY Rx#: [id number] metroNIDAZOLE-NS PMX 500 100 100 mg In Saline 1 100ml.bag @ 100 mls/hr IVPB Q8H ABBEY Rx#:[id number] Oral 250 Output: Urine 280 280 Other: Voiding Method Indwelling Catheter Indwelling Catheter ABP, PAP, CO, CI - Last Documented Arterial Blood Pressure 122/51 - Labs CBC & Chem 7: 04/15/24 05:08 04/15/24 05:08 Labs: Abnormal Lab Results - Last 24 Hours (Table) 04/15/24 04/15/24 04/15/24 Range/Units 05:08 05:08 05:08 RBC 3.49 L (3.80-5.40) m/uL Hgb 10.5 L (11.4-16.0) gm/dL Hct 32.5 L (34.0-46.0) % Neutrophils # 8.2 H (1.3-7.7) k/uL APTT 53.7 H (22.0-30.0) sec Sodium 135 L (137-145) mmol/L BUN 18 H (7-17) mg/dL Creatinine 0.39 L (0.52-1.04) mg/dL Glucose 106 H (74-99) mg/dL
--- NOTE | 2024-04-15 11:28 | P.PN ---
Subjective Progress Note Date: 04/15/24 SURGICAL PROGRESS NOTE CHIEF COMPLAINT: Perforated diverticulitis HISTORY OF PRESENT ILLNESS: Patient is postop day #5 status post exploratory laparotomy with sigmoid colectomy with end colostomy for perforated diverticulitis of the sigmoid colon. Patient is currently in the ICU as overflow. Ostomy has had some air. No stool. Her pain is controlled. She does complain of pain on the left side of the abdomen. Denies any nausea or vomiting. Has tolerated the clear liquids. Afebrile. WBC 10.2 Hgb 10.5 platelets 175. Cardiology has placed patient on Eliquis for Afib. PHYSICAL EXAM: VITAL SIGNS: Reviewed. GENERAL: Well-developed in no acute distress. ABDOMEN: Soft. Nondistended. Ostomy on the left. Stoma pink. Mucus noted. No stool. Midline incision clean dry and intact. NEUROLOGIC: Alert and oriented. Cranial nerves II through XII grossly intact. ASSESSMENT: 1. Perforated diverticulitis PLAN: -Continue clear liquid diet -Encourage patient to increase activity level -Continue antibiotics -Continue pain management -[place] added for oral pain medication -Encourage incentive spirometer use Physician Nurse Coordinator note has been reviewed by physician. Signing provider agrees with the documented findings, assessment, and plan of care. Objective - Vital Signs Vital signs: Vital Signs Temp 98.6 F 04/15/24 08:00 Pulse 66 04/15/24 10:00 Resp 13 04/15/24 10:00 BP 130/68 04/15/24 10:00 Pulse Ox 96 04/15/24 10:00 FiO2 40 04/14/24 16:00 Intake & Output 04/14/24 04/15/24 04/15/24 18:59 06:59 18:59 Intake Total 1210 503 740 Output Total 280 280 90 Balance 930 223 650 Intake: IV 610 303 500 0.9 KVO 80 Lactated Ringers 1,000 ml 500 300 500 @ 50 mls/hr IV .Q20H ABBEY Rx#:[id number] pressure bag 30 3 Intake, IV Titration 350 200 Amount Cefepime 2 gm In Sodium 100 Chloride 0.9% 100 ml @ 25 mls/hr IVPB Q8HR ABBEY Rx# :[id number] Heparin Sod,Pork in 0.45% 250 NaCl 25,000 unit In 0.45 % NaCl 1 250ml.bag @ 12 UNITS/KG/HR 6.24 mls/hr IV .Q24H ABBEY Rx#: [id number] metroNIDAZOLE-NS PMX 500 100 100 mg In Saline 1 100ml.bag @ 100 mls/hr IVPB Q8H ABBEY Rx#:[id number] Oral 250 240 Output: Urine 280 280 90 Other: Voiding Method Indwelling Catheter Indwelling Catheter Indwelling Catheter ABP, PAP, CO, CI - Last Documented Arterial Blood Pressure 122/51 - Labs CBC & Chem 7: 04/15/24 05:08 04/15/24 05:08 Labs: Abnormal Lab Results - Last 24 Hours (Table) 04/15/24 04/15/24 04/15/24 Range/Units 05:08 05:08 05:08 RBC 3.49 L (3.80-5.40) m/uL Hgb 10.5 L (11.4-16.0) gm/dL Hct 32.5 L (34.0-46.0) % Neutrophils # 8.2 H (1.3-7.7) k/uL APTT 53.7 H (22.0-30.0) sec Sodium 135 L (137-145) mmol/L BUN 18 H (7-17) mg/dL Creatinine 0.39 L (0.52-1.04) mg/dL Glucose 106 H (74-99) mg/dL
[2024-04-15 11:55] LABS: Glucose,Whole Blood 122 mg/dL (70-110)
--- NOTE | 2024-04-15 14:49 | P.PN ---
Subjective Progress Note Date: 04/15/24 Principal diagnosis: Reason for follow-up is parotitis perforated diverticulitis Patient is a 68-year-old female with a past medical history significant for hypertension osteoarthritis hypothyroidism, metastatic rectal cancer previous history of smoking presenting to the hospital for evaluation of abdominal pain, the patient CT has been suggestive of pneumoperitoneum with diagnosis of perforated sigmoid diverticulitis patient is status post laparotomy sigmoid resection and end colostomy. On today's evaluation that is 04/15/2024, the patient continues to be afebrile, the patient is on room air and breathing comfortably, the Pt denies having any chest pain or cough, the patient abdominal pain is currently controlled no nausea vomiting minimal output in her ostomy. The patient white count is 10.2 creatinine 0.39 blood culture negative no OR cultures Objective - Vital Signs Vital signs: Vital Signs Temp 98.2 F 04/15/24 12:00 Pulse 68 04/15/24 12:00 Resp 17 04/15/24 12:00 BP 127/61 04/15/24 12:00 Pulse Ox 96 04/15/24 12:00 FiO2 40 04/14/24 16:00 Intake & Output 04/14/24 04/15/24 04/15/24 18:59 06:59 18:59 Intake Total 1210 503 740 Output Total 280 280 90 Balance 930 223 650 Intake: IV 610 303 500 0.9 KVO 80 Lactated Ringers 1,000 ml 500 300 500 @ 50 mls/hr IV .Q20H ABBEY Rx#:[id number] pressure bag 30 3 Intake, IV Titration 350 200 Amount Cefepime 2 gm In Sodium 100 Chloride 0.9% 100 ml @ 25 mls/hr IVPB Q8HR ABBEY Rx# :[id number] Heparin Sod,Pork in 0.45% 250 NaCl 25,000 unit In 0.45 % NaCl 1 250ml.bag @ 12 UNITS/KG/HR 6.24 mls/hr IV .Q24H ABBEY Rx#: [id number] metroNIDAZOLE-NS PMX 500 100 100 mg In Saline 1 100ml.bag @ 100 mls/hr IVPB Q8H ABBEY Rx#:[id number] Oral 250 240 Output: Urine 280 280 90 Other: Voiding Method Indwelling Catheter Indwelling Catheter Indwelling Catheter ABP, PAP, CO, CI - Last Documented Arterial Blood Pressure 122/51 - Exam GENERAL DESCRIPTION: An elderly female lying in bed in no distress RESPIRATORY SYSTEM: Unlabored breathing , decreased breath sounds at bases HEART: S1 S2 regular rate and rhythm , ABDOMEN: Soft , mild tenderness EXTREMITIES: No edema feet - Labs CBC & Chem 7: 04/15/24 05:08 04/15/24 05:08 Labs: Abnormal Lab Results - Last 24 Hours (Table) 04/15/24 04/15/24 04/15/24 Range/Units 05:08 05:08 05:08 RBC 3.49 L (3.80-5.40) m/uL Hgb 10.5 L (11.4-16.0) gm/dL Hct 32.5 L (34.0-46.0) % Neutrophils # 8.2 H (1.3-7.7) k/uL APTT 53.7 H (22.0-30.0) sec Sodium 135 L (137-145) mmol/L BUN 18 H (7-17) mg/dL Creatinine 0.39 L (0.52-1.04) mg/dL Glucose 106 H (74-99) mg/dL POC Glucose (mg/dL) (70-110) mg/dL 04/15/24 Range/Units 11:53 RBC (3.80-5.40) m/uL Hgb (11.4-16.0) gm/dL Hct (34.0-46.0) % Neutrophils # (1.3-7.7) k/uL APTT (22.0-30.0) sec Sodium (137-145) mmol/L BUN (7-17) mg/dL Creatinine (0.52-1.04) mg/dL Glucose (74-99) mg/dL POC Glucose (mg/dL) 122 H (70-110) mg/dL Assessment and Plan (1) Sepsis Current Visit: Yes Status: Acute Code(s): A41.9 - SEPSIS, UNSPECIFIED ORGANISM SNOMED Code(s): 19350686 (2) Peritonitis Current Visit: Yes Status: Acute Code(s): K65.9 - PERITONITIS, UNSPECIFIED SNOMED Code(s): 10732413 (3) Perforation of sigmoid colon due to diverticulitis Current Visit: Yes Status: Acute Priority: High Code(s): K57.20 - DVTRCLI OF LG INT W PERFORATION AND ABSCESS W/O BLEEDING SNOMED Code(s): 5918243188900218 Plan: 1patient presented to hospital with sepsis in this patient who did have hypotension tachycardia leukopenia meeting criteria for SIRS source is likely perforated sigmoid diverticulitis with peritonitis, we will need to cover for the enteric gram-negative both aerobes and anaerobes keeping in mind her history of metastatic rectal cancer chemo and has been out of the hospital need to cover for resistant gram-negative pathogen 2-penicillin allergy therapy limit the number of antibiotics safe to use 3-patient is afebrile, the patient white count has normalized, blood culture have been negative we will continue with cefepime 2 g every 8 hours Flagyl 500 mg every 8 hour and monitor clinical course closely Dictation was produced using [employer] dictation software. please excuse any grammatical, word or spelling errors. Time with Patient: Less than 30
[2024-04-15 19:55] LABS: Glucose,Whole Blood 107 mg/dL (70-110)
[2024-04-16 00:35] LABS: Glucose,Whole Blood 96 mg/dL (70-110)
[2024-04-16 05:45] LABS: Glucose,Whole Blood 104 mg/dL (70-110)
[2024-04-16 07:40] LABS: HCT 30.5 % (34.0-46.0); HGB 10.2 gm/dL (11.4-16.0); MCH 30.9 pg (25.0-35.0); MCHC 33.4 g/dL (31.0-37.0); MCV 92.6 fL (80.0-100.0); Mean Platelet Volume 7.6; Platelet Count 174 k/uL (150-450); RDW 14.3 % (11.5-15.5); WBC 15.2 k/uL (3.8-10.6)
[2024-04-16 08:04] LABS: African American GFR (CKD) >90 (>60 ml/min/1.73 sqM); Anion Gap 3 mmol/L; Blood Urea Nitrogen 16 mg/dL (7-17); Calcium 8.4 mg/dL (8.4-10.2); Carbon Dioxide 26 mmol/L (22-30); Chloride 107 mmol/L (98-107); Glucose 100 mg/dL (74-99); Non-African American GFR(CKD) >90 (>60 ml/min/1.73 sqM); Potassium 3.6 mmol/L (3.5-5.1); Sodium 136 mmol/L (137-145)
--- NOTE | 2024-04-16 09:15 | P.PN ---
Subjective Progress Note Date: 04/16/24 patient is a 68-year-old lady with past medical history significant for metastatic rectal cancer brought to the ER for evaluation of lower abdominal pain. Patient that she has been not been feeling well for the last few days. Patient stated that she was having lower quad abdominal pain which was generali zed, nonradiating, no aggravating or leaving factors associated abdominal pain. Patient also complaining of constipation and has not had a bowel movement in a number of days. There was no complaint of fever or chills. There was complaint of nausea but no vomiting. Patient stated she recently started chemotherapy. Because of these symptoms, patient presented to the ER Initial lab work done in the ER showed WBC 7.5, hemoglobin 9.5, platelet count 335, sodium 130, potassium 3, BUN 14, creatinine 0.53, lactate 4.5 EKG done in the ER showed heart rate of 116 , no ST segment elevation or depres stefania seen, no T-wave inversions seen. CT abdominal pelvis done showed large pneumoperitoneum, mild circumferential wall thickening of a short segment of ascending colon and proximal sigmoid colon in associated with diverticula suggest diverticulitis versus colitis Patient admitted to internal medicine service 04/11. Patient seen and examined. Patient currently intubated, opening eyes and following commands. 04/12. Patient seen examined. Patient is currently extubated. Alert, currently has NG tube in. Lab work done this morning showed WBC 9.9, hemoglobin 10.4, platelet count 190, sodium 137, potassium 3.3, BUN 18, creatinine 0.62, glucose 100. Patient went to [facility] overnight, currently on amiodarone. 04/13. Patient seen and examined. CurrentlyLaying in the chair. Still has NG tube in. Stated pain has slightly improved. Currently on IV amiodarone, heparin. 04/14. Patient seen examined. States she feels better. Patient started on clear liquid diet . Blood work done this morning showed WBC 10.2, hemoglobin 9.2, platelet count 190, sodium 137 potassium 3.7, BUN 18, creatinine 0.43. Patient currently on oral amiodarone and IV heparin 04/15. Patient seen and examined. Patient transferred out of ICU REVIEW OF SYSTEMS: Denies any chest pain. Complaining of abdominal pain but states improved from yesterday. Vital signs stable. PHYSICAL EXAMINATION: GENERAL: The patient is alert HEENT: Pupils are round and equally reacting to light. EOMI. No scleral icterus. No conjunctival pallor. Normocephalic, atraumatic. No pharyngeal erythema. No th yromegaly. CARDIOVASCULAR: S1 and S2 present. No murmurs, rubs, or gallops. PULMONARY: Chest is clear to auscultation, no wheezing or crackles. ABDOMEN: Tenderness, surgical incision seen, ostomy seen no palpable organomegaly. MUSCULOSKELETAL: No joint swelling or deformity. EXTREMITIES: No cyanosis, clubbing, or pedal edema. NEUROLOGICAL: Moving all extremities SKIN: No rashes. Assessment and plan Pneumoperitoneum Sepsis A-fib with RVR Acute hypoxic respiratory failure Acute sigmoid colon perforation Acute diverticulitis Hyponatremia Hypokalemia Lactic acidosis History of rectal cancer Monitor vital signs Monitor CBC Monitor CMP Continue telemetry monitoring status post exploratory laparotomy and sigmoid colon resection with end colostomy Continue IV fluids Continue amiodarone Continue IV heparin Aggressive bronchopulmonary hygiene Continue IV cefepime, Flagyl Start clear liquid diet Pulmonology following Surgery following ID following Transfer out of ICU Labs and medication were reviewed.. Continue same treatment. Continue with symptomatic treatment. Resume home medication. Monitor labs and vitals. DVT and GI prophylaxis. Further recommendations as per clinical course of the patient Dictation was produced using [employer] dictation software. please excuse any gramma tical, word or spelling errors. Objective - Vital Signs Vital signs: Vital Signs Temp 98.5 F 04/16/24 08:00 Pulse 84 04/16/24 08:00 Resp 18 04/16/24 08:00 BP 127/59 04/16/24 08:00 Pulse Ox 95 04/16/24 08:00 FiO2 40 04/14/24 16:00 Intake & Output 04/15/24 04/16/24 04/16/24 18:59 06:59 18:59 Intake Total 1040 100 Output Total 215 Balance 825 100 Weight 58.7 kg 59.8 kg Intake: IV 500 100 Cefepime 2 gm In Sodium 100 Chloride 0.9% 100 ml @ 25 mls/hr IVPB Q8HR ABBEY Rx# :[id number] Lactated Ringers 1,000 ml 500 @ 50 mls/hr IV .Q20H [facility]BEY Rx#:[id number] Oral 540 Output: Urine 215 Other: Voiding Method Indwelling Catheter Indwelling Catheter ABP, PAP, CO, CI - Last Documented Arterial Blood Pressure 122/51 - Labs CBC & Chem 7: 04/16/24 07:04 04/16/24 07:04 Labs: Abnormal Lab Results - Last 24 Hours (Table) 04/15/24 04/16/24 04/16/24 Range/Units 11:53 07:04 07:04 WBC 15.2 H (3.8-10.6) k/uL RBC 3.30 L (3.80-5.40) m/uL Hgb 10.2 L (11.4-16.0) gm/dL Hct 30.5 L (34.0-46.0) % Sodium 136 L (137-145) mmol/L Creatinine 0.40 L (0.52-1.04) mg/dL Glucose 100 H (74-99) mg/dL POC Glucose (mg/dL) 122 H (70-110) mg/dL Microbiology - Last 24 Hours (Table) 04/10/24 06:21 Blood Culture - Final Blood
[2024-04-16 11:44] LABS: Glucose,Whole Blood 110 mg/dL (70-110)
--- NOTE | 2024-04-16 12:24 | P.PN ---
Subjective Progress Note Date: 04/16/24 Principal diagnosis: ICU management. This is a 68-year-old female with history of metastatic rectal cancer presented to the ER 04/10 mostly with abdominal pain. Patient has been receiving chemotherapy for her rectal cancer, her first treatment was March 29. Patient has not been feeling well since March 29, presented to the ER with few days history of abdominal pain, lower abdominal pain. Patient had some nausea, no vomiting. No bowel movement for the few days, patient noted no fever, no chills, CT of the abdomen pelvis showed pneumoperitoneum and possible perforation of the ascending colon. Patient underwent exploratory laparotomy sigmoid colon resection with end colostomy. Patient was found to have perforated diverticulitis of the sigmoid colon. Postoperatively, patient was sent to the ICU, intubated mechanically ventilated, she is presently on assist-c ontrol rate of 16, tidal volume increased to 350, FiO2 100% and PEEP of 5. ABG on FiO2 of 100% showed a pO2 of 392, pCO2 of 53 pH of 7.35, hence vent adjustment was made and she was on FiO2 of 40%, rate of 16, and tidal volume of 350. Patient is hemodynamically stable, not requiring any pressors, she is however requiring fluids for relatively marginal blood pressure and tachycardia. Her electrolytes showed low potassium of 3.0 that is being addressed accordingly bicarb is 27 renal profile is normal WBC count is 1.4 hemoglobin 13.8. Her WBC count on admission was 7.5 dropped down significantly to 1.4. Antibiotics miranda, patient received cefepime, she is also on metronidazole, patient could not be placed on Zosyn mostly because of her penicillin allergy. On her initial presentation she received Levaquin she also received a Rocephin. 04/11/2024 patient seen and examined at bedside. Patient still in the ICU intubated, sedated and mechanically ventilated. Ventilator settings are assist- control with a rate of 16, tidal volume 350, PEEP of 5 with FiO2 40%. No acute events overnight. Currently drips are normal saline 0.9% with a rate of 130 cc/h, propofol with a rate of 40 and Levophed of 0.02 mcg/kg/min. Chest x-ray shows atelectasis at the right lung base with ET tube, NG tube, and central venous catheters in place. ABG Shows CO2 22, CO2 41 and pH of 7.36. Other labs today show WBC 4.3, hemoglobin 11.5, platelet count 1 59,000, sodium 134, potassium 4.2 BUN 16, creatinine 0.58 glucose 102, calcium 7.6, phosphorus 3, magnesium 2.1 04/12/2024 patient seen and examined at bedside. Patient still in the ICU and was extubated around 11 AM yesterday at 04/11. Overnight, patient had an episode of A-fib with rapid ventricular response with associated hypotension. Currently on IV fluids normal saline at 100 cc, amiodarone IV at 0.5 mg/min, heparin drip at 12 units/kg/h, and Cardizem drip at 1 mg/h. Chest x-ray today shows mild atelectatic type changes at the left base with central venous catheter, NG tube in place. Labs today showed WBC 9.9 hemoglobin 10.4 platelet count 190,000 PTT 36.1 PTT 12.1 INR 1.1 sodium 137 potassium 3.3 chloride 112 bicarb 21 BUN 18 creatinine 0.62 glucose 100 calcium 8.4 magnesium 2.1 04/13/2024 patient seen and examined at bedside. No acute events overnight. Postop exploratory laparotomy and sigmoid colon resection with end colostomy day 3. Currently on IV fluids normal saline at 100 cc, amiodarone IV at 0.5 mg/min and heparin drip at 12 units/kg/h. On day 4 of metronidazole IV and cefepime IV. Chest x-ray showed interval development of some mild infiltrate at the right base which is likely atelectasis with small left pleural effusion and NG tube and central venous catheter and port catheter seen and in place. Labs today show WBC 12.4, hemoglobin 10.1, platelet count 1 93,000 PTT 49.9, sodium 136, potassium 4, bicarb 18, BUN 19, creatinine 0.46, glucose 90, calcium 8.7. TSH less than 0.0 15 Free T41.72. Echocardiogram showed hyperdynamic LV, EF 60%, concerns of concentric LVH with mid ventricular obstruction with elevated gradients with peak gradients more than 100 mmHg, systolic anterior motion of mitral valve with moderate MR. 04/14/2024 patient seen and examined at bedside. No acute events overnight. Postop exploratory laparotomy and sigmoid colon resection with end colostomy day 4. Currently on IV fluids lactated Ringer's at 50 cc/h, and heparin 12 units/kg/h. On day 5, metronidazole IV and cefepime IV. Labs today show WBC 10.2, hemoglobin 10.2, platelet count 190,000 PTT 44.4, sodium 136, potassium 3.7, chloride 109, bicarb 21, BUN 18, creatinine 0.43, glucose 71, calcium 8.6 04/15/2024 patient seen and examined at bedside. No acute events overnight. NG tube removed. Patient started on clear liquid diet yesterday. Postop exploratory laparotomy and sigmoid colon resection with end colostomy day 5. Currently on IV fluids lactated Ringer's at 50 cc/h. Labs today show WBC 10.2, hemoglobin 10.5, platelet count 1 75,000, PTT 53.7, sodium 135, potassium 3.7, bicarb 23, chloride 107, BUN 18, creatinine 0.39, glucose 106, calcium 8.5 Progress note dated April 16, 2024. This is a 68-year-old female with history of postoperative day #6, status post exploratory laparotomy and sigmoid colon resection, with end colostomy. The patient was transferred out of the intensive care unit. The patient is doing very well. She is seen today in room 354. She is on room air. She is not receiving any IV fluids. NG tube has been removed. Current labs include a white count 15.2, hemoglobin 10.2, hematocrit 30.5, and a normal platelet count. Sodium 136, potassium 3.6, chlorides 107, CO2 26, BUN 16, creatinine 0.4. Glucose is 110. Calcium is 8.4. Objective - Vital Signs Vital signs: Vital Signs Temp 98.5 F 04/16/24 08:00 Pulse 82 04/16/24 08:00 Resp 18 04/16/24 08:00 BP 127/59 04/16/24 08:00 Pulse Ox 95 04/16/24 08:00 FiO2 40 04/14/24 16:00 Intake & Output 04/15/24 04/16/24 04/16/24 18:59 06:59 18:59 Intake Total 1040 100 Output Total 215 Balance 825 100 Weight 58.7 kg 59.8 kg Intake: IV 500 100 Cefepime 2 gm In Sodium 100 Chloride 0.9% 100 ml @ 25 mls/hr IVPB Q8HR [facility] Rx# :[id number] Lactated Ringers 1,000 ml 500 @ 50 mls/hr IV .Q20H [facility] Rx#:[id number] Oral 540 Output: Urine 215 Other: Voiding Method Indwelling Catheter Indwelling Catheter Indwelling Catheter ABP, PAP, CO, CI - Last Documented Arterial Blood Pressure 122/51 - Exam No acute distress, oriented 3. HEENT examination is grossly unremarkable. Mucous membranes are moist. No oral lesions. Neck supple. Full range of motion. No adenopathy thyromegaly or neck vein distention. Cardiovascular examination reveals regular rhythm rate. S1-S2 normal. No S3 or S4. No discernible murmur noted. Lungs reveal mostly clear breath sounds. Minimal scattered rhonchi. No wheezes or crackles. Breath sounds equal bilaterally. Abdomen with occasional bowel sounds. Colostomy is noted. Extremities are intact. No cyanosis clubbing or edema. Skin is without rash or lesion. Neurologic examination is brief but nonfocal. - Labs CBC & Chem 7: 04/16/24 07:04 04/16/24 07:04 Labs: Abnormal Lab Results - Last 24 Hours (Table) 04/16/24 04/16/24 Range/Units 07:04 07:04 WBC 15.2 H (3.8-10.6) k/uL RBC 3.30 L (3.80-5.40) m/uL Hgb 10.2 L (11.4-16.0) gm/dL Hct 30.5 L (34.0-46.0) % Sodium 136 L (137-145) mmol/L Creatinine 0.40 L (0.52-1.04) mg/dL Glucose 100 H (74-99) mg/dL Microbiology - Last 24 Hours (Table) 04/10/24 06:21 Blood Culture - Final Blood Assessment and Plan Assessment: Postoperative day #6, status post exploratory laparotomy, sigmoid colon resection with end colostomy. Routine postoperative ventilator management, with successful extubation. Paroxysmal atrial fibrillation. Hypertension. Pneumoperitoneum, a result of the exploratory laparotomy. Acute hypoxemic respiratory failure, resolved. Abdominal sepsis, resolved. Lactic acidosis, resolved. History of metastatic rectal carcinoma. History of hypertrophic obstructive cardiomyopathy. Plan: Plan dated April 16, 2024. The patient is seen in room 354. The patient is currently on room air. Clinically, she is stable. She is not receiving any IV fluids. She is taking things by mouth. The NG tube has been removed. Labs, x-rays, and all medications are reviewed. We encouraged the patient to continue using the incentive spirometer, every hour while awake. We will continue to see the patient, and make recommendations. Prognosis is guarded. Time with Patient: Less than 30
--- NOTE | 2024-04-16 13:28 | P.PN ---
Subjective HISTORY OF PRESENT ILLNESS: The patient is a 68-year-old female diagnosed recently with metastatic rectal carcinoma, started chemotherapy, presented with pneumoperitoneum and underwent colon resection and colostomy. She had episode of atrial fibrillation postoperatively. She is back in sinus mechanism. She is sitting up in the chair, has abdominal discomfort but no chest discomfort. She continues to be in sinus mechanism on Cleviprex for hypertension. She has no evidence of ventricular ectopic activity. She has been changed to oral amiodarone but continues to be on IV heparin. She continues to have an NG tube with no significant discharge from her colostomy. She had an echocardiogram done that showed a preserved systolic function with hypertrophic obstructive cardiomyopathy and MARISSA with moderate to severe mitral regurgitation. She has the diagnosis of hypertrophic cardiomyopathy in the past. April 15: The patient feels better overall, sitting up in the chair, continues to be in sinus mechanism. Her NG tube was removed. She denies any chest discomfort, dizziness or palpitations. She has no nausea. Hemodynamically she is stable on no vasopressors. She continues to be on IV heparin but she is able to take oral medications at this time. 04/16/2024 Patient examined this morning at the bedside. Patient currently denies chest pain or pressure. She reports improvement in her shortness of breath. She is tolerating clear liquid diet. Vital signs are stable. Blood pressure stable in the [id number]. PHYSICAL EXAM: VITAL SIGNS: Reviewed. GENERAL: Well-developed in no acute distress. NECK: Supple. No JVD or thyromegaly LUNGS: Respirations even and unlabored. Lungs essentially clear to auscultation bilaterally. HEART: Regular rate and rhythm. S1 and S2 heard. Systolic murmur noted EXTREMITIES: Normal range of motion. No clubbing or cyanosis. Peripheral pulses intact. No lower extremity edema ASSESSMENT: Pneumoperitoneum, status post colon resection and colostomy Metastatic rectal carcinoma Paroxysmal atrial fibrillation, maintaining sinus mechanism Hypertrophic cardiomyopathy with mitral regurgitation Hypertension PLAN: Continue current cardiac medications Continue telemetry monitoring Patient is currently stable from a cardiac perspective Further recommendations pending patient course Nurse practitioner note has been reviewed by physician. Signing provider agrees with the documented findings, assessment, and plan of care documented by S[employer]IOR [employer]OTECH[employer] as a scribe. Objective - Vital Signs Vital signs: Vital Signs Temp 98.5 F 04/16/24 08:00 Pulse 78 04/16/24 12:00 Resp 18 04/16/24 12:00 BP 156/79 04/16/24 12:00 Pulse Ox 95 04/16/24 12:00 FiO2 40 04/14/24 16:00 Intake & Output 04/15/24 04/16/24 04/16/24 18:59 06:59 18:59 Intake Total 1040 100 Output Total 215 Balance 825 100 Weight 58.7 kg 59.8 kg Intake: IV 500 100 Cefepime 2 gm In Sodium 100 Chloride 0.9% 100 ml @ 25 mls/hr IVPB Q8HR [facility] Rx# :[id number] Lactated Ringers 1,000 ml 500 @ 50 mls/hr IV .Q20H [facility] Rx#:[id number] Oral 540 Output: Urine 215 Other: Voiding Method Indwelling Catheter Indwelling Catheter Indwelling Catheter ABP, PAP, CO, CI - Last Documented Arterial Blood Pressure 122/51 - Labs CBC & Chem 7: 04/16/24 07:04 04/16/24 07:04 Labs: Abnormal Lab Results - Last 24 Hours (Table) 04/16/24 04/16/24 Range/Units 07:04 07:04 WBC 15.2 H (3.8-10.6) k/uL RBC 3.30 L (3.80-5.40) m/uL Hgb 10.2 L (11.4-16.0) gm/dL Hct 30.5 L (34.0-46.0) % Sodium 136 L (137-145) mmol/L Creatinine 0.40 L (0.52-1.04) mg/dL Glucose 100 H (74-99) mg/dL Microbiology - Last 24 Hours (Table) 04/10/24 06:21 Blood Culture - Final Blood
--- NOTE | 2024-04-16 14:57 | P.PN ---
Subjective Progress Note Date: 04/16/24 patient is a 68-year-old lady with past medical history significant for metastatic rectal cancer brought to the ER for evaluation of lower abdominal pain. Patient that she has been not been feeling well for the last few days. Patient stated that she was having lower quad abdominal pain which was generali zed, nonradiating, no aggravating or leaving factors associated abdominal pain. Patient also complaining of constipation and has not had a bowel movement in a number of days. There was no complaint of fever or chills. There was complaint of nausea but no vomiting. Patient stated she recently started chemotherapy. Because of these symptoms, patient presented to the ER Initial lab work done in the ER showed WBC 7.5, hemoglobin 9.5, platelet count 335, sodium 130, potassium 3, BUN 14, creatinine 0.53, lactate 4.5 EKG done in the ER showed heart rate of 116 , no ST segment elevation or depres stefania seen, no T-wave inversions seen. CT abdominal pelvis done showed large pneumoperitoneum, mild circumferential wall thickening of a short segment of ascending colon and proximal sigmoid colon in associated with diverticula suggest diverticulitis versus colitis Patient admitted to internal medicine service 04/11. Patient seen and examined. Patient currently intubated, opening eyes and following commands. 04/12. Patient seen examined. Patient is currently extubated. Alert, currently has NG tube in. Lab work done this morning showed WBC 9.9, hemoglobin 10.4, platelet count 190, sodium 137, potassium 3.3, BUN 18, creatinine 0.62, glucose 100. Patient went to [facility] overnight, currently on amiodarone. 04/13. Patient seen and examined. CurrentlyLaying in the chair. Still has NG tube in. Stated pain has slightly improved. Currently on IV amiodarone, heparin. 04/14. Patient seen examined. States she feels better. Patient started on clear liquid diet . Blood work done this morning showed WBC 10.2, hemoglobin 9.2, platelet count 190, sodium 137 potassium 3.7, BUN 18, creatinine 0.43. Patient currently on oral amiodarone and IV heparin 04/15. Patient seen and examined. Patient transferred out of ICU 04/16. Patient seen and examined. Blood work done this morning showed WBC 15.2, hemoglobin 10.2, sodium 136, potassium 3.6, BUN 16, creatinine 0.40. REVIEW OF SYSTEMS: Denies any chest pain. Complaining of abdominal pain but states improved from yesterday. Vital signs stable.Continues to be afebrile. Currently on room air. Currently on clear liquid diet, being advanced to soft diet. Patient had ostomy output overnight PHYSICAL EXAMINATION: GENERAL: The patient is alert HEENT: Pupils are round and equally reacting to light. EOMI. No scleral icterus. No conjunctival pallor. Normocephalic, atraumatic. No pharyngeal erythema. No thyromegaly. CARDIOVASCULAR: S1 and S2 present. No murmurs, rubs, or gallops. PULMONARY: Chest is clear to auscultation, no wheezing or crackles. ABDOMEN: Tenderness, surgical incision seen, ostomy seen no palpable organomegaly. MUSCULOSKELETAL: No joint swelling or deformity. EXTREMITIES: No cyanosis, clubbing, or pedal edema. NEUROLOGICAL: Moving all extremities SKIN: No rashes. Assessment and plan Pneumoperitoneum Sepsis A-fib with RVR Acute hypoxic respiratory failure Acute sigmoid colon perforation Acute diverticulitis Hyponatremia Hypokalemia Lactic acidosis History of rectal cancer Monitor vital signs Monitor CBC Monitor CMP Continue telemetry monitoring status post exploratory laparotomy and sigmoid colon resection with end colostomy Currently on Eliquis and amiodarone Aggressive bronchopulmonary hygiene Continue IV cefepime, Flagyl Continue clear liquid diet, diet advanced per surgery Pulmonology following Surgery following ID following Labs and medication were reviewed.. Continue same treatment. Continue with symptomatic treatment. Resume home medication. Monitor labs and vitals. DVT and GI prophylaxis. Further recommendations as per clinical course of the patient Dictation was produced using [employer] dictation software. please excuse any grammatical, word or spelling errors. Objective - Vital Signs Vital signs: Vital Signs Temp 98.5 F 04/16/24 08:00 Pulse 84 04/16/24 08:00 Resp 18 04/16/24 08:00 BP 127/59 04/16/24 08:00 Pulse Ox 95 04/16/24 08:00 FiO2 40 04/14/24 16:00 Intake & Output 04/15/24 04/16/24 04/16/24 18:59 06:59 18:59 Intake Total 1040 100 Output Total 215 Balance 825 100 Weight 58.7 kg 59.8 kg Intake: IV 500 100 Cefepime 2 gm In Sodium 100 Chloride 0.9% 100 ml @ 25 mls/hr IVPB Q8HR [facility] Rx# :[id number] Lactated Ringers 1,000 ml 500 @ 50 mls/hr IV .Q20H [facility] Rx#:[id number] Oral 540 Output: Urine 215 Other: Voiding Method Indwelling Catheter Indwelling Catheter ABP, PAP, CO, CI - Last Documented Arterial Blood Pressure 122/51 - Labs CBC & Chem 7: 04/16/24 07:04 04/16/24 07:04 Labs: Abnormal Lab Results - Last 24 Hours (Table) 04/15/24 04/16/24 04/16/24 Range/Units 11:53 07:04 07:04 WBC 15.2 H (3.8-10.6) k/uL RBC 3.30 L (3.80-5.40) m/uL Hgb 10.2 L (11.4-16.0) gm/dL Hct 30.5 L (34.0-46.0) % Sodium 136 L (137-145) mmol/L Creatinine 0.40 L (0.52-1.04) mg/dL Glucose 100 H (74-99) mg/dL POC Glucose (mg/dL) 122 H (70-110) mg/dL Microbiology - Last 24 Hours (Table) 04/10/24 06:21 Blood Culture - Final Blood
--- NOTE | 2024-04-16 15:23 | P.PN ---
Subjective Progress Note Date: 04/16/24 Principal diagnosis: Reason for follow-up is parotitis perforated diverticulitis Patient is a 68-year-old female with a past medical history significant for hypertension osteoarthritis hypothyroidism, metastatic rectal cancer previous history of smoking presenting to the hospital for evaluation of abdominal pain, the patient CT has been suggestive of pneumoperitoneum with diagnosis of perforated sigmoid diverticulitis patient is status post laparotomy sigmoid resection and end colostomy. On today's evaluation that is 04/16/2024, patient did not have any fever and denies any chills, patient is breathing comfortably on room air, patient with no chest pain or cough patient did have some output in the in the colostomy bag no nausea vomiting abdominal pain is currently controlled. Patient white count slightly up to 15.2 today, creatinine 0.40 Objective - Vital Signs Vital signs: Vital Signs Temp 98.5 F 04/16/24 08:00 Pulse 78 04/16/24 12:00 Resp 18 04/16/24 12:00 BP 156/79 04/16/24 12:00 Pulse Ox 95 04/16/24 12:00 FiO2 40 04/14/24 16:00 Intake & Output 04/15/24 04/16/24 04/16/24 18:59 06:59 18:59 Intake Total 1040 100 160 Output Total 215 Balance 825 100 160 Weight 58.7 kg 59.8 kg Intake: IV 500 100 Cefepime 2 gm In Sodium 100 Chloride 0.9% 100 ml @ 25 mls/hr IVPB Q8HR [facility] Rx# :[id number] Lactated Ringers 1,000 ml 500 @ 50 mls/hr IV .Q20H [facility] Rx#:[id number] Oral 540 160 Output: Urine 215 Other: Voiding Method Indwelling Catheter Indwelling Catheter Indwelling Catheter # Bowel Movements 1 ABP, PAP, CO, CI - Last Documented Arterial Blood Pressure 122/51 - Exam GENERAL DESCRIPTION: An elderly female lying in bed in no distress RESPIRATORY SYSTEM: Unlabored breathing , decreased breath sounds at bases HEART: S1 S2 regular rate and rhythm , ABDOMEN: Soft , mild tenderness EXTREMITIES: No edema feet - Labs CBC & Chem 7: 04/16/24 07:04 04/16/24 07:04 Labs: Abnormal Lab Results - Last 24 Hours (Table) 04/16/24 04/16/24 Range/Units 07:04 07:04 WBC 15.2 H (3.8-10.6) k/uL RBC 3.30 L (3.80-5.40) m/uL Hgb 10.2 L (11.4-16.0) gm/dL Hct 30.5 L (34.0-46.0) % Sodium 136 L (137-145) mmol/L Creatinine 0.40 L (0.52-1.04) mg/dL Glucose 100 H (74-99) mg/dL Microbiology - Last 24 Hours (Table) 04/10/24 06:21 Blood Culture - Final Blood Assessment and Plan (1) Sepsis Current Visit: Yes Status: Acute Code(s): A41.9 - SEPSIS, UNSPECIFIED ORGANISM SNOMED Code(s): 74029050 (2) Peritonitis Current Visit: Yes Status: Acute Code(s): K65.9 - PERITONITIS, UNSPECIFIED SNOMED Code(s): 07972395 (3) Perforation of sigmoid colon due to diverticulitis Current Visit: Yes Status: Acute Priority: High Code(s): K57.20 - DVTRCLI OF LG INT W PERFORATION AND ABSCESS W/O BLEEDING SNOMED Code(s): 2287035636219820 Plan: 1patient presented to hospital with sepsis in this patient who did have hypotension tachycardia leukopenia meeting criteria for SIRS source is likely perforated sigmoid diverticulitis with peritonitis, we will need to cover for the enteric gram-negative both aerobes and anaerobes keeping in mind her history of metastatic rectal cancer chemo and has been out of the hospital need to cover for resistant gram-negative pathogen 2-penicillin allergy therapy limit the number of antibiotics safe to use 3-patient is afebrile, the patient white count slightly up today could have been related to the right IJ which has been discontinued will watch white count closely continue cefepime Flagyl Dictation was produced using [employer] dictation software. please excuse any grammatical, word or spelling errors.
[2024-04-16 16:39] LABS: Glucose,Whole Blood 113 mg/dL (70-110)
[2024-04-17 00:11] LABS: Glucose,Whole Blood 110 mg/dL (70-110)
--- NOTE | 2024-04-17 01:07 | P.PN ---
Progress Note - Text Progress Note Date: 04/16/24 CHIEF COMPLAINT: Perforated diverticulitis HISTORY OF PRESENT ILLNESS: Patient is postop day #6 status post exploratory laparotomy with sigmoid colectomy with end colostomy for perforated diverticulitis of the sigmoid colon. Colostomy in functioning. Patient is tolerating Clear Liquid Diet. Denies nausea and vomiting. Denies fevers. Cardiology has placed patient on Eliquis for Afib. PHYSICAL EXAM: VITAL SIGNS: Reviewed. GENERAL: Well-developed in no acute distress. ABDOMEN: Soft. Nondistended. Ostomy on the left. Stoma pink. Mucus noted. No stool. Midline incision clean dry and intact. NEUROLOGIC: Alert and oriented. Cranial nerves II through XII grossly intact. ASSESSMENT: 1. Perforated diverticulitis PLAN: -Advanced to Regular Diet -Encourage patient to increase activity level -Continue antibiotics -Continue to monitor WBC as it rising. If continues to go up, patient will need CT-AP as she is high risk for post op abscess secondary to feculent peritonitis -Continue pain management -Encourage incentive spirometer use -Wound Care for Ostomy teaching Jhonathan Mares DO [facility] [phone]
[2024-04-17 06:03] LABS: Glucose,Whole Blood 106 mg/dL (70-110)
[2024-04-17 11:16] LABS: Glucose,Whole Blood 123 mg/dL (70-110)
[2024-04-17] MEDS: LOSARTAN 25 MG TAB PO SCH (11:58)
[2024-04-17] MEDS: FUROSEMIDE 10 MG/ML 4 ML VIAL IV STA (11:58)
--- NOTE | 2024-04-17 12:11 | P.PN ---
Subjective Progress Note Date: 04/17/24 Principal diagnosis: ICU management. This is a 68-year-old female with history of metastatic rectal cancer presented to the ER 04/10 mostly with abdominal pain. Patient has been receiving chemotherapy for her rectal cancer, her first treatment was March 29. Patient has not been feeling well since March 29, presented to the ER with few days history of abdominal pain, lower abdominal pain. Patient had some nausea, no vomiting. No bowel movement for the few days, patient noted no fever, no chills, CT of the abdomen pelvis showed pneumoperitoneum and possible perforation of the ascending colon. Patient underwent exploratory laparotomy sigmoid colon resection with end colostomy. Patient was found to have perforated diverticulitis of the sigmoid colon. Postoperatively, patient was sent to the ICU, intubated mechanically ventilated, she is presently on assist-c ontrol rate of 16, tidal volume increased to 350, FiO2 100% and PEEP of 5. ABG on FiO2 of 100% showed a pO2 of 392, pCO2 of 53 pH of 7.35, hence vent adjustment was made and she was on FiO2 of 40%, rate of 16, and tidal volume of 350. Patient is hemodynamically stable, not requiring any pressors, she is however requiring fluids for relatively marginal blood pressure and tachycardia. Her electrolytes showed low potassium of 3.0 that is being addressed accordingly bicarb is 27 renal profile is normal WBC count is 1.4 hemoglobin 13.8. Her WBC count on admission was 7.5 dropped down significantly to 1.4. Antibiotics miranda, patient received cefepime, she is also on metronidazole, patient could not be placed on Zosyn mostly because of her penicillin allergy. On her initial presentation she received Levaquin she also received a Rocephin. 04/11/2024 patient seen and examined at bedside. Patient still in the ICU intubated, sedated and mechanically ventilated. Ventilator settings are assist- control with a rate of 16, tidal volume 350, PEEP of 5 with FiO2 40%. No acute events overnight. Currently drips are normal saline 0.9% with a rate of 130 cc/h, propofol with a rate of 40 and Levophed of 0.02 mcg/kg/min. Chest x-ray shows atelectasis at the right lung base with ET tube, NG tube, and central venous catheters in place. ABG Shows CO2 22, CO2 41 and pH of 7.36. Other labs today show WBC 4.3, hemoglobin 11.5, platelet count 1 59,000, sodium 134, potassium 4.2 BUN 16, creatinine 0.58 glucose 102, calcium 7.6, phosphorus 3, magnesium 2.1 04/12/2024 patient seen and examined at bedside. Patient still in the ICU and was extubated around 11 AM yesterday at 04/11. Overnight, patient had an episode of A-fib with rapid ventricular response with associated hypotension. Currently on IV fluids normal saline at 100 cc, amiodarone IV at 0.5 mg/min, heparin drip at 12 units/kg/h, and Cardizem drip at 1 mg/h. Chest x-ray today shows mild atelectatic type changes at the left base with central venous catheter, NG tube in place. Labs today showed WBC 9.9 hemoglobin 10.4 platelet count 190,000 PTT 36.1 PTT 12.1 INR 1.1 sodium 137 potassium 3.3 chloride 112 bicarb 21 BUN 18 creatinine 0.62 glucose 100 calcium 8.4 magnesium 2.1 04/13/2024 patient seen and examined at bedside. No acute events overnight. Postop exploratory laparotomy and sigmoid colon resection with end colostomy day 3. Currently on IV fluids normal saline at 100 cc, amiodarone IV at 0.5 mg/min and heparin drip at 12 units/kg/h. On day 4 of metronidazole IV and cefepime IV. Chest x-ray showed interval development of some mild infiltrate at the right base which is likely atelectasis with small left pleural effusion and NG tube and central venous catheter and port catheter seen and in place. Labs today show WBC 12.4, hemoglobin 10.1, platelet count 1 93,000 PTT 49.9, sodium 136, potassium 4, bicarb 18, BUN 19, creatinine 0.46, glucose 90, calcium 8.7. TSH less than 0.0 15 Free T41.72. Echocardiogram showed hyperdynamic LV, EF 60%, concerns of concentric LVH with mid ventricular obstruction with elevated gradients with peak gradients more than 100 mmHg, systolic anterior motion of mitral valve with moderate MR. 04/14/2024 patient seen and examined at bedside. No acute events overnight. Postop exploratory laparotomy and sigmoid colon resection with end colostomy day 4. Currently on IV fluids lactated Ringer's at 50 cc/h, and heparin 12 units/kg/h. On day 5, metronidazole IV and cefepime IV. Labs today show WBC 10.2, hemoglobin 10.2, platelet count 190,000 PTT 44.4, sodium 136, potassium 3.7, chloride 109, bicarb 21, BUN 18, creatinine 0.43, glucose 71, calcium 8.6 04/15/2024 patient seen and examined at bedside. No acute events overnight. NG tube removed. Patient started on clear liquid diet yesterday. Postop exploratory laparotomy and sigmoid colon resection with end colostomy day 5. Currently on IV fluids lactated Ringer's at 50 cc/h. Labs today show WBC 10.2, hemoglobin 10.5, platelet count 1 75,000, PTT 53.7, sodium 135, potassium 3.7, bicarb 23, chloride 107, BUN 18, creatinine 0.39, glucose 106, calcium 8.5 Progress note dated April 16, 2024. This is a 68-year-old female with history of postoperative day #6, status post exploratory laparotomy and sigmoid colon resection, with end colostomy. The patient was transferred out of the intensive care unit. The patient is doing very well. She is seen today in room 354. She is on room air. She is not receiving any IV fluids. NG tube has been removed. Current labs include a white count 15.2, hemoglobin 10.2, hematocrit 30.5, and a normal platelet count. Sodium 136, potassium 3.6, chlorides 107, CO2 26, BUN 16, creatinine 0.4. Glucose is 110. Calcium is 8.4. Progress note dated April 17, 2024. 68-year-old female with a history of postoperative day #7, status post exploratory laparotomy sigmoid colon resection with end colostomy. The patient was transferred out of the intensive care unit, a few days ago. Clinically she is doing well. She is currently on room air. No IV fluids. NG tube has been removed. She is taking nutrition by mouth. She has no specific complaints today. The only blood work today is a glucose of 123. Objective - Vital Signs Vital signs: Vital Signs Temp 98.1 F 04/17/24 07:52 Pulse 82 04/17/24 08:00 Resp 18 04/17/24 08:00 BP 133/65 04/17/24 07:52 Pulse Ox 96 04/17/24 07:52 FiO2 40 04/14/24 16:00 Intake & Output 04/16/24 04/17/24 04/17/24 18:59 06:59 18:59 Intake Total 260 340 Output Total 600 Balance 260 -260 Weight 41 kg Intake: IV 100 metroNIDAZOLE-NS PMX 500 100 mg In Saline 1 100ml.bag @ 100 mls/hr IVPB Q8H [facility] Rx#:[id number] Oral 260 240 Output: Urine 600 Other: Voiding Method Indwelling Catheter Indwelling Catheter Indwelling Catheter # Bowel Movements 1 ABP, PAP, CO, CI - Last Documented Arterial Blood Pressure 122/51 - Exam No acute distress, oriented 3. Currently on room air. HEENT examination is grossly unremarkable. Mucous membranes are moist. No oral lesions. Neck supple. Full range of motion. No adenopathy thyromegaly or neck vein distention. Cardiovascular examination reveals regular rhythm rate. S1-S2 normal. No S3 or S4. No discernible murmur noted. Lungs reveal mostly clear breath sounds. Minimal scattered rhonchi. No wheezes or crackles. Breath sounds equal bilaterally. Abdomen with occasional bowel sounds. Colostomy is noted. Extremities are intact. No cyanosis clubbing or edema. Skin is without rash or lesion. Neurologic examination is brief but nonfocal. - Labs CBC & Chem 7: 04/16/24 07:04 04/16/24 07:04 Labs: Abnormal Lab Results - Last 24 Hours (Table) 04/16/24 04/17/24 Range/Units 16:38 11:14 POC Glucose (mg/dL) 113 H 123 H (70-110) mg/dL Assessment and Plan Assessment: Postoperative day #7, status post exploratory laparotomy, sigmoid colon resection with end colostomy. Routine postoperative ventilator management, with successful extubation. Paroxysmal atrial fibrillation. Hypertension. Pneumoperitoneum, a result of the exploratory laparotomy. Acute hypoxemic respiratory failure, resolved. Abdominal sepsis, resolved. Lactic acidosis, resolved. History of metastatic rectal carcinoma. History of hypertrophic obstructive cardiomyopathy. Plan: Plan dated April 16, 2024. The patient is seen in room 354. The patient is currently on room air. Clinically, she is stable. She is not receiving any IV fluids. She is taking things by mouth. The NG tube has been removed. Labs, x-rays, and all medications are reviewed. We encouraged the patient to continue using the incentive spirometer, every hour while awake. We will continue to see the patient, and make recommendations. Prognosis is guarded. Plan dated April 17, 2024. The patient is seen today in room 354. She continues to improve on a daily basis. She has no specific complaints today. She denies any shortness of breath, cough, wheezing, chest tightness, or phlegm production. She continues to use her incentive spirometry, on a regular basis. She is currently on room air. NG tube has been removed. Labs, x-rays, and medications are reviewed. We will continue to follow the patient, and make recommendations where appropriate. Time with Patient: Less than 30
--- NOTE | 2024-04-17 12:25 | P.PN ---
Subjective Progress Note Date: 04/17/24 patient is a 68-year-old lady with past medical history significant for metastatic rectal cancer brought to the ER for evaluation of lower abdominal pain. Patient that she has been not been feeling well for the last few days. Patient stated that she was having lower quad abdominal pain which was generali zed, nonradiating, no aggravating or leaving factors associated abdominal pain. Patient also complaining of constipation and has not had a bowel movement in a number of days. There was no complaint of fever or chills. There was complaint of nausea but no vomiting. Patient stated she recently started chemotherapy. Because of these symptoms, patient presented to the ER Initial lab work done in the ER showed WBC 7.5, hemoglobin 9.5, platelet count 335, sodium 130, potassium 3, BUN 14, creatinine 0.53, lactate 4.5 EKG done in the ER showed heart rate of 116 , no ST segment elevation or depres stefania seen, no T-wave inversions seen. CT abdominal pelvis done showed large pneumoperitoneum, mild circumferential wall thickening of a short segment of ascending colon and proximal sigmoid colon in associated with diverticula suggest diverticulitis versus colitis Patient admitted to internal medicine service 04/11. Patient seen and examined. Patient currently intubated, opening eyes and following commands. 04/12. Patient seen examined. Patient is currently extubated. Alert, currently has NG tube in. Lab work done this morning showed WBC 9.9, hemoglobin 10.4, platelet count 190, sodium 137, potassium 3.3, BUN 18, creatinine 0.62, glucose 100. Patient went to [facility] overnight, currently on amiodarone. 04/13. Patient seen and examined. CurrentlyLaying in the chair. Still has NG tube in. Stated pain has slightly improved. Currently on IV amiodarone, heparin. 04/14. Patient seen examined. States she feels better. Patient started on clear liquid diet . Blood work done this morning showed WBC 10.2, hemoglobin 9.2, platelet count 190, sodium 137 potassium 3.7, BUN 18, creatinine 0.43. Patient currently on oral amiodarone and IV heparin 04/15. Patient seen and examined. Patient transferred out of ICU 04/16. Patient seen and examined. Blood work done this morning showed WBC 15.2, hemoglobin 10.2, sodium 136, potassium 3.6, BUN 16, creatinine 0.40. 04/17. Patient seen and examined. Complaining of nausea, poor appetite. REVIEW OF SYSTEMS: Denies any chest pain. Denies any fever or chills PHYSICAL EXAMINATION: GENERAL: The patient is alert HEENT: Pupils are round and equally reacting to light. EOMI. No scleral icterus. No conjunctival pallor. Normocephalic, atraumatic. No pharyngeal erythema. No thyromegaly. CARDIOVASCULAR: S1 and S2 present. No murmurs, rubs, or gallops. PULMONARY: Chest is clear to auscultation, no wheezing or crackles. ABDOMEN: Tenderness, surgical incision seen, ostomy seen no palpable organomegaly. MUSCULOSKELETAL: No joint swelling or deformity. EXTREMITIES: No cyanosis, clubbing, or pedal edema. NEUROLOGICAL: Moving all extremities SKIN: No rashes. Assessment and plan Pneumoperitoneum Sepsis A-fib with RVR Acute hypoxic respiratory failure Acute sigmoid colon perforation Acute diverticulitis Hyponatremia Hypokalemia Lactic acidosis History of rectal cancer Monitor vital signs Monitor CBC Monitor CMP Continue telemetry monitoring status post exploratory laparotomy and sigmoid colon resection with end colostomy Currently on Eliquis and amiodarone Aggressive bronchopulmonary hygiene Continue IV cefepime, Flagyl Continue clear liquid diet, diet advanced per surgery Pulmonology following Surgery following ID following Labs and medication were reviewed.. Continue same treatment. Continue with symptomatic treatment. Resume home medication. Monitor labs and vitals. DVT and GI prophylaxis. Further recommendations as per clinical course of the patient Dictation was produced using [employer] dictation software. please excuse any grammatical, word or spelling errors. Objective - Vital Signs Vital signs: Vital Signs Temp 98.1 F 04/17/24 07:52 Pulse 82 04/17/24 08:00 Resp 18 04/17/24 08:00 BP 133/65 04/17/24 07:52 Pulse Ox 96 04/17/24 07:52 FiO2 40 04/14/24 16:00 Intake & Output 04/16/24 04/17/24 04/17/24 18:59 06:59 18:59 Intake Total 260 340 Output Total 600 Balance 260 -260 Weight 41 kg Intake: IV 100 metroNIDAZOLE-NS PMX 500 100 mg In Saline 1 100ml.bag @ 100 mls/hr IVPB Q8H [facility] Rx#:[id number] Oral 260 240 Output: Urine 600 Other: Voiding Method Indwelling Catheter Indwelling Catheter Indwelling Catheter # Bowel Movements 1 ABP, PAP, CO, CI - Last Documented Arterial Blood Pressure 122/51 - Labs CBC & Chem 7: 04/16/24 07:04 04/16/24 07:04 Labs: Abnormal Lab Results - Last 24 Hours (Table) 04/16/24 04/17/24 Range/Units 16:38 11:14 POC Glucose (mg/dL) 113 H 123 H (70-110) mg/dL
--- NOTE | 2024-04-17 13:20 | P.PN ---
Subjective HISTORY OF PRESENT ILLNESS: The patient is a 68-year-old female diagnosed recently with metastatic rectal carcinoma, started chemotherapy, presented with pneumoperitoneum and underwent colon resection and colostomy. She had episode of atrial fibrillation postoperatively. She is back in sinus mechanism. She is sitting up in the chair, has abdominal discomfort but no chest discomfort. She continues to be in sinus mechanism on Cleviprex for hypertension. She has no evidence of ventricular ectopic activity. She has been changed to oral amiodarone but continues to be on IV heparin. She continues to have an NG tube with no significant discharge from her colostomy. She had an echocardiogram done that showed a preserved systolic function with hypertrophic obstructive cardiomyopathy and MARISSA with moderate to severe mitral regurgitation. She has the diagnosis of hypertrophic cardiomyopathy in the past. April 15: The patient feels better overall, sitting up in the chair, continues to be in sinus mechanism. Her NG tube was removed. She denies any chest discomfort, dizziness or palpitations. She has no nausea. Hemodynamically she is stable on no vasopressors. She continues to be on IV heparin but she is able to take oral medications at this time. 04/16/2024 Patient examined this morning at the bedside. Patient currently denies chest pain or pressure. She reports improvement in her shortness of breath. She is tolerating clear liquid diet. Vital signs are stable. Blood pressure stable in the [id number]. 04/17/2023 Patient examined this morning the bedside. Patient currently denies chest pain or pressure. She denies shortness of breath. Patient's blood pressures overnight elevated with a systolic in the 160s. She continues to have edema in her extremities, worse in her arms. She is tolerating oral diet. Telemetry reveals sinus mechanism. PHYSICAL EXAM: VITAL SIGNS: Reviewed. GENERAL: Well-developed in no acute distress. NECK: Supple. No JVD or thyromegaly LUNGS: Respirations even and unlabored. Lungs essentially clear to auscultation bilaterally. HEART: Regular rate and rhythm. S1 and S2 heard. Systolic murmur noted EXTREMITIES: Normal range of motion. No clubbing or cyanosis. Peripheral pulses intact. No lower extremity edema ASSESSMENT: Pneumoperitoneum, status post colon resection and colostomy Metastatic rectal carcinoma Paroxysmal atrial fibrillation, maintaining sinus mechanism Hypertrophic cardiomyopathy with mitral regurgitation Hypertension PLAN: Continue current cardiac medications Add losartan 25 mg daily for optimal blood pressure control. Continue to monitor blood pressure Recommend elevating extremities on pillows Give 1 dose of IV Lasix 40 mg Check protein/albumin Encourage use of incentive spirometer Continue telemetry monitoring Increase activity as tolerated. Patient should be up into the chair today. Further recommendations pending patient course Nurse practitioner note has been reviewed by physician. Signing provider agrees with the documented findings, assessment, and plan of care documented by RACK WASHER as a scribe. Objective - Vital Signs Vital signs: Vital Signs Temp 98.1 F 04/17/24 07:52 Pulse 82 04/17/24 08:00 Resp 18 04/17/24 08:00 BP 133/65 04/17/24 07:52 Pulse Ox 96 04/17/24 07:52 FiO2 40 04/14/24 16:00 Intake & Output 04/16/24 04/17/24 04/17/24 18:59 06:59 18:59 Intake Total 260 340 Output Total 600 Balance 260 -260 Weight 41 kg Intake: IV 100 metroNIDAZOLE-NS PMX 500 100 mg In Saline 1 100ml.bag @ 100 mls/hr IVPB Q8H [facility] Rx#:[id number] Oral 260 240 Output: Urine 600 Other: Voiding Method Indwelling Catheter Indwelling Catheter Indwelling Catheter # Bowel Movements 1 ABP, PAP, CO, CI - Last Documented Arterial Blood Pressure 122/51 - Labs CBC & Chem 7: 04/16/24 07:04 04/16/24 07:04 Labs: Abnormal Lab Results - Last 24 Hours (Table) 04/16/24 04/17/24 Range/Units 16:38 11:14 POC Glucose (mg/dL) 113 H 123 H (70-110) mg/dL
[2024-04-17 14:00] LABS: Albumin 1.9 g/dL (3.5-5.0); Total Protein 4.4 g/dL (6.3-8.2)
[2024-04-17 16:22] LABS: Glucose,Whole Blood 121 mg/dL (70-110)
[2024-04-17 20:09] LABS: Glucose,Whole Blood 117 mg/dL (70-110)
--- NOTE | 2024-04-17 22:10 | P.PN ---
Subjective Progress Note Date: 04/17/24 Principal diagnosis: Reason for follow-up is parotitis perforated diverticulitis Patient is a 68-year-old female with a past medical history significant for hypertension osteoarthritis hypothyroidism, metastatic rectal cancer previous history of smoking presenting to the hospital for evaluation of abdominal pain, the patient CT has been suggestive of pneumoperitoneum with diagnosis of perforated sigmoid diverticulitis patient is status post laparotomy sigmoid resection and end colostomy. On today's evaluation that is 04/17/2024, Patient is afebrile patient is cu rrently on room air and denies having any shortness of breath, the patient denies any chest pain or cough, the patient denies any nausea vomiting abdominal pain is currently controlled did have some output in her colostomy. Patient did not have any lab draw today Objective - Vital Signs Vital signs: Vital Signs Temp 98.1 F 04/17/24 07:52 Pulse 82 04/17/24 08:00 Resp 18 04/17/24 08:00 BP 133/65 04/17/24 07:52 Pulse Ox 96 04/17/24 07:52 FiO2 40 04/14/24 16:00 Intake & Output 04/16/24 04/17/24 04/17/24 18:59 06:59 18:59 Intake Total 260 340 Output Total 600 Balance 260 -260 Weight 41 kg Intake: IV 100 metroNIDAZOLE-NS PMX 500 100 mg In Saline 1 100ml.bag @ 100 mls/hr IVPB Q8H [facility] Rx#:[id number] Oral 260 240 Output: Urine 600 Other: Voiding Method Indwelling Catheter Indwelling Catheter Indwelling Catheter # Bowel Movements 1 ABP, PAP, CO, CI - Last Documented Arterial Blood Pressure 122/51 - Exam GENERAL DESCRIPTION: An elderly female lying in bed in no distress RESPIRATORY SYSTEM: Unlabored breathing , decreased breath sounds at bases HEART: S1 S2 regular rate and rhythm , ABDOMEN: Soft , mild tenderness EXTREMITIES: No edema feet - Labs CBC & Chem 7: 04/16/24 07:04 04/16/24 07:04 Labs: Abnormal Lab Results - Last 24 Hours (Table) 04/16/24 04/17/24 Range/Units 16:38 11:14 POC Glucose (mg/dL) 113 H 123 H (70-110) mg/dL Assessment and Plan (1) Sepsis Current Visit: Yes Status: Acute Code(s): A41.9 - SEPSIS, UNSPECIFIED ORGANISM SNOMED Code(s): 67769055 (2) Peritonitis Current Visit: Yes Status: Acute Code(s): K65.9 - PERITONITIS, UNSPECIFIED SNOMED Code(s): 89609060 (3) Perforation of sigmoid colon due to diverticulitis Current Visit: Yes Status: Acute Priority: High Code(s): K57.20 - DVTRCLI OF LG INT W PERFORATION AND ABSCESS W/O BLEEDING SNOMED Code(s): 7745643 [id number] Plan: 1patient presented to hospital with sepsis in this patient who did have hypotension tachycardia leukopenia meeting criteria for SIRS source is likely pe rforated sigmoid diverticulitis with peritonitis, we will need to cover for the enteric gram-negative both aerobes and anaerobes keeping in mind her history of metastatic rectal cancer chemo and has been out of the hospital need to cover for resistant gram-negative pathogen 2-penicillin allergy therapy limit the number of antibiotics safe to use 3-patient is afebrile, and slowly clinically improved, patient to continue cefepime Flagyl and monitor clinical course closely Dictation was produced using [employer] dictation software. please excuse any grammatical, word or spelling errors. Time with Patient: Less than 30
[2024-04-18 06:01] LABS: Glucose,Whole Blood 127 mg/dL (70-110)
--- NOTE | 2024-04-18 07:23 | P.PN ---
Progress Note - Text Progress Note Date: 04/17/24 HISTORY OF PRESENT ILLNESS: Patient is postop day #7 status post exploratory laparotomy with sigmoid colectomy with end colostomy for perforated diverticulitis of the sigmoid colon. Colostomy in functioning. Patient is tolerating Clear Liquid Diet. Denies nausea and vomiting. Denies fevers. Cardiology has placed patient on Eliquis for Afib. PHYSICAL EXAM: VITAL SIGNS: Reviewed. GENERAL: Well-developed in no acute distress. ABDOMEN: Soft. Nondistended. Ostomy on the left. Stoma pink. Mucus noted. No stool. Midline incision clean dry and intact. NEUROLOGIC: Alert and oriented. Cranial nerves II through XII grossly intact. ASSESSMENT: 1. Perforated diverticulitis PLAN: -Advanced to Regular Diet -Encourage patient to increase activity level -Continue antibiotics -Continue to monitor WBC as it rising. If continues to go up, patient will need CT-AP as she is high risk for post op abscess secondary to feculent peritonitis -Continue pain management -Encourage incentive spirometer use -Wound Care for Ostomy teaching Jhonathan Mares DO [facility] [phone]
[2024-04-18 08:11] LABS: ALT 9 U/L (4-34); AST 20 U/L (14-36); African American GFR (CKD) >90 (>60 ml/min/1.73 sqM); Albumin 1.7 g/dL (3.5-5.0); Alkaline Phosphatase 110 U/L (38-126); Anion Gap 5 mmol/L; Blood Urea Nitrogen 13 mg/dL (7-17); Carbon Dioxide 26 mmol/L (22-30); Chloride 102 mmol/L (98-107); Glucose 131 mg/dL (74-99); Non-African American GFR(CKD) >90 (>60 ml/min/1.73 sqM); Potassium 3.1 mmol/L (3.5-5.1); Sodium 133 mmol/L (137-145); Total Bilirubin 0.4 mg/dL (0.2-1.3); Total Protein 4.1 g/dL (6.3-8.2)
[2024-04-18] MEDS: POTASSIUM CHLORIDE ER 20 MEQ TAB.ER PO SCH (09:34)
[2024-04-18 09:44] LABS: Basophils # (A) 0.1 k/uL (0-0.2); Basophils % (A) 0 %; Eosinophils % (A) 0 %; HCT 31.3 % (34.0-46.0); Hypochromasia Moderate; Lymphocytes # (A) 0.9 k/uL (1.0-4.8); Lymphocytes % (A) 5 %; MCH 30.2 pg (25.0-35.0); MCV 94.4 fL (80.0-100.0); Mean Platelet Volume 7.4; Monocytes # (A) 0.7 k/uL (0-1.0); Monocytes % (A) 4 %; Neutrophils # (A) 16.6 k/uL (1.3-7.7); Neutrophils % (A) 90 %; Platelet Count 182 k/uL (150-450); RBC 3.31 m/uL (3.80-5.40); RDW 14.7 % (11.5-15.5); WBC 18.4 k/uL (3.8-10.6)
--- NOTE | 2024-04-18 11:28 | P.PN ---
Subjective HISTORY OF PRESENT ILLNESS: The patient is a 68-year-old female diagnosed recently with metastatic rectal carcinoma, started chemotherapy, presented with pneumoperitoneum and underwent colon resection and colostomy. She had episode of atrial fibrillation postoperatively. She is back in sinus mechanism. She is sitting up in the chair, has abdominal discomfort but no chest discomfort. She continues to be in sinus mechanism on Cleviprex for hypertension. She has no evidence of ventricular ectopic activity. She has been changed to oral amiodarone but continues to be on IV heparin. She continues to have an NG tube with no significant discharge from her colostomy. She had an echocardiogram done that showed a preserved systolic function with hypertrophic obstructive cardiomyopathy and MARISSA with moderate to severe mitral regurgitation. She has the diagnosis of hypertrophic cardiomyopathy in the past. April 15: The patient feels better overall, sitting up in the chair, continues to be in sinus mechanism. Her NG tube was removed. She denies any chest discomfort, dizziness or palpitations. She has no nausea. Hemodynamically she is stable on no vasopressors. She continues to be on IV heparin but she is able to take oral medications at this time. 04/16/2024 Patient examined this morning at the bedside. Patient currently denies chest pain or pressure. She reports improvement in her shortness of breath. She is tolerating clear liquid diet. Vital signs are stable. Blood pressure stable in the [id number]. 04/17/2023 Patient examined this morning the bedside. Patient currently denies chest pain or pressure. She denies shortness of breath. Patient's blood pressures overnight elevated with a systolic in the 160s. She continues to have edema in her extremities, worse in her arms. She is tolerating oral diet. Telemetry reveals sinus mechanism. 04/18/24 Patient examined this morning. She denies chest pain or pressure. Denies SOB. BP remains somewhat elevated. Telemetry reveals sinus mechanism. PHYSICAL EXAM: VITAL SIGNS: Reviewed. GENERAL: Well-developed in no acute distress. NECK: Supple. No JVD or thyromegaly LUNGS: Respirations even and unlabored. Lungs essentially clear to auscultation bilaterally. HEART: Regular rate and rhythm. S1 and S2 heard. Systolic murmur noted EXTREMITIES: Normal range of motion. No clubbing or cyanosis. Peripheral pulses intact. Bilateral upper and lower extremity edema ASSESSMENT: Pneumoperitoneum, status post colon resection and colostomy Metastatic rectal carcinoma Paroxysmal atrial fibrillation, maintaining sinus mechanism Hypertrophic cardiomyopathy with mitral regurgitation Hypertension PLAN: Continue current cardiac medications Continue current dose of Losartan Continue to monitor blood pressure Recommend elevating extremities on pillows Give 1 dose of IV Lasix 40 mg Recommend increased protein intake. Albumin low at 1.7 Encourage use of incentive spirometer Continue telemetry monitoring Increase activity as tolerated. Patient should be up into the chair daily. Further recommendations pending patient course Nurse practitioner note has been reviewed by physician. Signing provider agrees with the documented findings, assessment, and plan of care documented by PHYSIOTHERAPY AIDE as a scribe. Objective - Vital Signs Vital signs: Vital Signs Temp 98.3 F 04/18/24 08:00 Pulse 90 04/18/24 08:00 Resp 18 04/18/24 08:00 BP 133/67 04/18/24 08:00 Pulse Ox 97 04/18/24 08:00 FiO2 40 04/14/24 16:00 Intake & Output 04/17/24 04/18/24 04/18/24 18:59 06:59 18:59 Intake Total 240 630 0 Output Total 1999 Balance -1760 630 0 Weight 41 kg Intake: IV 510 Invasive Line 7 10 metroNIDAZOLE-NS PMX 500 500 mg In Saline 1 100ml.bag @ 100 mls/hr IVPB Q8H [facility] Rx#:[id number] Oral 240 120 0 Output: Urine 2000 Other: Voiding Method Indwelling Catheter Indwelling Catheter Indwelling Catheter ABP, PAP, CO, CI - Last Documented Arterial Blood Pressure 122/51 - Labs CBC & Chem 7: 04/18/24 06:47 04/18/24 06:47 Labs: Abnormal Lab Results - Last 24 Hours (Table) 04/17/24 04/17/24 04/17/24 Range/Units 12:41 16:21 20:08 WBC (3.8-10.6) k/uL RBC (3.80-5.40) m/uL Hgb (11.4-16.0) gm/dL Hct (34.0-46.0) % Neutrophils # (1.3-7.7) k/uL Lymphocytes # (1.0-4.8) k/uL Sodium (137-145) mmol/L Potassium (3.5-5.1) mmol/L Creatinine (0.52-1.04) mg/dL Glucose (74-99) mg/dL POC Glucose (mg/dL) 121 H 117 H (70-110) mg/dL Calcium (8.4-10.2) mg/dL Total Protein 4.4 L (6.3-8.2) g/dL Albumin 1.9 L (3.5-5.0) g/dL 04/18/24 04/18/24 04/18/24 Range/Units 05:58 06:47 06:47 WBC 18.4 H (3.8-10.6) k/uL RBC 3.31 L (3.80-5.40) m/uL Hgb 10.0 L (11.4-16.0) gm/dL Hct 31.3 L (34.0-46.0) % Neutrophils # 16.6 H (1.3-7.7) k/uL Lymphocytes # 0.9 L (1.0-4.8) k/uL Sodium 133 L (137-145) mmol/L Potassium 3.1 L (3.5-5.1) mmol/L Creatinine 0.43 L (0.52-1.04) mg/dL Glucose 131 H (74-99) mg/dL POC Glucose (mg/dL) 127 H (70-110) mg/dL Calcium 8.0 L (8.4-10.2) mg/dL Total Protein 4.1 L (6.3-8.2) g/dL Albumin 1.7 L (3.5-5.0) g/dL
[2024-04-18 11:31] LABS: Glucose,Whole Blood 146 mg/dL (70-110)
[2024-04-18] MEDS: FUROSEMIDE 10 MG/ML 4 ML VIAL IV STA (12:02)
[2024-04-18] MEDS: HYDROcodone/APAP 5-325MG 1 EACH TAB PO PRN (12:43)
--- NOTE | 2024-04-18 13:53 | P.PN ---
Subjective Progress Note Date: 04/18/24 SURGICAL PROGRESS NOTE CHIEF COMPLAINT: Perforated diverticulitis HISTORY OF PRESENT ILLNESS: Patient is postop day #8 status post exploratory laparotomy with sigmoid colectomy with end colostomy for perforated diverticulitis of the sigmoid colon. Patient is currently on the cardiac floor. Her pain is controlled. Denies any nausea or vomiting. Tolerating regular diet. Ostomy is functioning. Afebrile. WBC is up from 15.2-18.4 Hgb 10 platelets 182 sodium is 133 potassium 3.1 creatinine 0.43 albumin 1.7. Cardiology did give a dose of Lasix. PHYSICAL EXAM: VITAL SIGNS: Reviewed. GENERAL: Well-developed in no acute distress. ABDOMEN: Soft. Nondistended. Ostomy on the left with stool present. Midline incision at the middle of the incision serosanguineous drainage noted. NEUROLOGIC: Alert and oriented. Cranial nerves II through XII grossly intact. ASSESSMENT: 1. Perforated diverticulitis 2. Severe protein calorie malnutrition 3. Hypokalemia PLAN: -CT scan abdomen pelvis ordered due to worsening white count -Continue regular diet -Continue protein supplement -Patient receiving potassium supplement -Encourage patient to increase activity level -Continue antibiotics -Continue pain management -Encourage incentive spirometer use -DVT prophylaxis on Eliquis Physician Biological Aide note has been reviewed by physician. Signing provider agrees with the documented findings, assessment, and plan of care. Objective - Vital Signs Vital signs: Vital Signs Temp 98.3 F 04/18/24 08:00 Pulse 90 04/18/24 08:00 Resp 18 04/18/24 08:00 BP 133/67 04/18/24 08:00 Pulse Ox 97 04/18/24 08:00 FiO2 40 04/14/24 16:00 Intake & Output 04/17/24 04/18/24 04/18/24 18:59 06:59 18:59 Intake Total 240 630 0 Output Total 1999 Balance -1760 630 0 Weight 41 kg Intake: IV 510 Invasive Line 7 10 metroNIDAZOLE-NS PMX 500 500 mg In Saline 1 100ml.bag @ 100 mls/hr IVPB Q8H [facility] Rx#:[id number] Oral 240 120 0 Output: Urine 1999 Other: Voiding Method Indwelling Catheter Indwelling Catheter Indwelling Catheter ABP, PAP, CO, CI - Last Documented Arterial Blood Pressure 122/51 - Labs CBC & Chem 7: 04/18/24 06:47 01/06/25 06:47 Labs: Abnormal Lab Results - Last 24 Hours (Table) 04/17/24 04/17/24 04/17/24 Range/Units 12:41 16:21 20:08 WBC (3.8-10.6) k/uL RBC (3.80-5.40) m/uL Hgb (11.4-16.0) gm/dL Hct (34.0-46.0) % Neutrophils # (1.3-7.7) k/uL Lymphocytes # (1.0-4.8) k/uL Sodium (137-145) mmol/L Potassium (3.5-5.1) mmol/L Creatinine (0.52-1.04) mg/dL Glucose (74-99) mg/dL POC Glucose (mg/dL) 121 H 117 H (70-110) mg/dL Calcium (8.4-10.2) mg/dL Total Protein 4.4 L (6.3-8.2) g/dL Albumin 1.9 L (3.5-5.0) g/dL 04/18/24 04/18/24 04/18/24 Range/Units 05:58 06:47 06:47 WBC 18.4 H (3.8-10.6) k/uL RBC 3.31 L (3.80-5.40) m/uL Hgb 10.0 L (11.4-16.0) gm/dL Hct 31.3 L (34.0-46.0) % Neutrophils # 16.6 H (1.3-7.7) k/uL Lymphocytes # 0.9 L (1.0-4.8) k/uL Sodium 133 L (137-145) mmol/L Potassium 3.1 L (3.5-5.1) mmol/L Creatinine 0.43 L (0.52-1.04) mg/dL Glucose 131 H (74-99) mg/dL POC Glucose (mg/dL) 127 H (70-110) mg/dL Calcium 8.0 L (8.4-10.2) mg/dL Total Protein 4.1 L (6.3-8.2) g/dL Albumin 1.7 L (3.5-5.0) g/dL 04/18/24 Range/Units 11:29 WBC (3.8-10.6) k/uL RBC (3.80-5.40) m/uL Hgb (11.4-16.0) gm/dL Hct (34.0-46.0) % Neutrophils # (1.3-7.7) k/uL Lymphocytes # (1.0-4.8) k/uL Sodium (137-145) mmol/L Potassium (3.5-5.1) mmol/L Creatinine (0.52-1.04) mg/dL Glucose (74-99) mg/dL POC Glucose (mg/dL) 146 H (70-110) mg/dL Calcium (8.4-10.2) mg/dL Total Protein (6.3-8.2) g/dL Albumin (3.5-5.0) g/dL
--- NOTE | 2024-04-18 13:59 | P.PN ---
Subjective patient is a 68-year-old lady with past medical history significant for metastatic rectal cancer brought to the ER for evaluation of lower abdominal pain. Patient that she has been not been feeling well for the last few days. Patient stated that she was having lower quad abdominal pain which was generalized, nonradiating, no aggravating or leaving factors associated abdominal pain. Patient also complaining of constipation and has not had a b owel movement in a number of days. There was no complaint of fever or chills. There was complaint of nausea but no vomiting. Patient stated she recently started chemotherapy. Because of these symptoms, patient presented to the ER Initial lab work done in the ER showed WBC 7.5, hemoglobin 9.5, platelet count 335, sodium 130, potassium 3, BUN 14, creatinine 0.53, lactate 4.5 EKG done in the ER showed heart rate of 116 , no ST segment elevation or depression seen, no T-wave inversions seen. CT abdominal pelvis done showed large pneumoperitoneum, mild circumferential wall thickening of a short segment of ascending colon and proximal sigmoid colon in associated with diverticula suggest diverticulitis versus colitis Patient admitted to internal medicine service 04/11. Patient seen and examined. Patient currently intubated, opening eyes and following commands. 04/12. Patient seen examined. Patient is currently extubated. Alert, currently has NG tube in. Lab work done this morning showed WBC 9.9, hemoglobin 10.4, platelet count 190, sodium 137, potassium 3.3, BUN 18, creatinine 0.62, glucose 100. Patient went to [facility] overnight, currently on amiodarone. 04/13. Patient seen and examined. CurrentlyLaying in the chair. Still has NG tube in. Stated pain has slightly improved. Currently on IV amiodarone, heparin. 04/14. Patient seen examined. States she feels better. Patient started on clear liquid diet . Blood work done this morning showed WBC 10.2, hemoglobin 9.2, platelet count 190, sodium 137 potassium 3.7, BUN 18, creatinine 0.43. Patient currently on oral amiodarone and IV heparin 04/15. Patient seen and examined. Patient transferred out of ICU 04/16. Patient seen and examined. Blood work done this morning showed WBC 15.2, hemoglobin 10.2, sodium 136, potassium 3.6, BUN 16, creatinine 0.40. 04/17. Patient seen and examined. Complaining of nausea, poor appetite. 04/18 Patient still complains from abdominal pain about 7/10 Colostomy bag in the left lower quadrant is working She ate little bit. Currently she is on regular diet She has central vertical abdominal wound with dressing in place Ritchie catheter in place Objective - Vital Signs Vital signs: Vital Signs Temp 98.3 F 04/18/24 08:00 Pulse 90 04/18/24 08:00 Resp 18 04/18/24 08:00 BP 133/67 04/18/24 08:00 Pulse Ox 97 04/18/24 08:00 FiO2 40 04/14/24 16:00 Intake & Output 04/17/24 04/18/24 04/18/24 18:59 06:59 18:59 Intake Total 240 630 0 Output Total 1999 Balance -1760 630 0 Weight 41 kg Intake: IV 510 Invasive Line 7 10 metroNIDAZOLE-NS PMX 500 500 mg In Saline 1 100ml.bag @ 100 mls/hr IVPB Q8H [facility] Rx#:[id number] Oral 240 120 0 Output: Urine 1999 Other: Voiding Method Indwelling Catheter Indwelling Catheter Indwelling Catheter ABP, PAP, CO, CI - Last Documented Arterial Blood Pressure 122/51 - Exam GENERAL: The patient is alert and oriented x3, not in any acute distress. Well developed, well nourished. HEENT: Pupils are round and equally reacting to light. EOMI. No scleral icterus. No conjunctival pallor. Normocephalic, atraumatic. No pharyngeal erythema. No thyromegaly. CARDIOVASCULAR: S1 and S2 present. No murmurs, rubs, or gallops. PULMONARY: Chest is clear to auscultation, no wheezing , no crackles. ABDOMEN: Soft, nontender, nondistended, normoactive bowel sounds. No palpable organomegaly. MUSCULOSKELETAL: No joint swelling or deformity. EXTREMITIES: No cyanosis, clubbing, or pedal edema. NEUROLOGICAL: Gross neurological examination did not reveal any focal deficits. SKIN: No rashes. no petechiae. - Labs CBC & Chem 7: 04/18/24 06:47 04/18/24 06:47 Labs: Abnormal Lab Results - Last 24 Hours (Table) 04/17/24 04/17/24 04/17/24 Range/Units 11:14 12:41 16:21 WBC (3.8-10.6) k/uL RBC (3.80-5.40) m/uL Hgb (11.4-16.0) gm/dL Hct (34.0-46.0) % Neutrophils # (1.3-7.7) k/uL Lymphocytes # (1.0-4.8) k/uL Sodium (137-145) mmol/L Potassium (3.5-5.1) mmol/L Creatinine (0.52-1.04) mg/dL Glucose (74-99) mg/dL POC Glucose (mg/dL) 123 H 121 H (70-110) mg/dL Calcium (8.4-10.2) mg/dL Total Protein 4.4 L (6.3-8.2) g/dL Albumin 1.9 L (3.5-5.0) g/dL 04/17/24 04/18/24 04/18/24 Range/Units 20:08 05:58 06:47 WBC (3.8-10.6) k/uL RBC (3.80-5.40) m/uL Hgb (11.4-16.0) gm/dL Hct (34.0-46.0) % Neutrophils # (1.3-7.7) k/uL Lymphocytes # (1.0-4.8) k/uL Sodium 133 L (137-145) mmol/L Potassium 3.1 L (3.5-5.1) mmol/L Creatinine 0.43 L (0.52-1.04) mg/dL Glucose 131 H (74-99) mg/dL POC Glucose (mg/dL) 117 H 127 H (70-110) mg/dL Calcium 8.0 L (8.4-10.2) mg/dL Total Protein 4.1 L (6.3-8.2) g/dL Albumin 1.7 L (3.5-5.0) g/dL 04/18/24 Range/Units 06:47 WBC 18.4 H (3.8-10.6) k/uL RBC 3.31 L (3.80-5.40) m/uL Hgb 10.0 L (11.4-16.0) gm/dL Hct 31.3 L (34.0-46.0) % Neutrophils # 16.6 H (1.3-7.7) k/uL Lymphocytes # 0.9 L (1.0-4.8) k/uL Sodium (137-145) mmol/L Potassium (3.5-5.1) mmol/L Creatinine (0.52-1.04) mg/dL Glucose (74-99) mg/dL POC Glucose (mg/dL) (70-110) mg/dL Calcium (8.4-10.2) mg/dL Total Protein (6.3-8.2) g/dL Albumin (3.5-5.0) g/dL Assessment and Plan Assessment: Pneumoperitoneum, status post colon resection with colostomy Metastatic rectal cancer Who comes with mitral regurgitation Intra-abdominal infection and sepsis A-fib with RVR Acute hypoxic respiratory failure Acute sigmoid colon perforation Acute diverticulitis Hyponatremia Hypokalemia Lactic acidosis History of rectal cancer Plan: Monitor vital signs Monitor CBC Monitor CMP Continue telemetry monitoring status post exploratory laparotomy and sigmoid colon resection with end colostomy Currently on Eliquis and amiodarone Aggressive bronchopulmonary hygiene Continue IV cefepime, Was on clear liquid diet, diet advanced per surgery to regular diet Pulmonology following Surgery following ID following
[2024-04-18] MEDS: IOPAMIDOL CONTRAST (ORAL USE) VIAL PO PRN (14:43)
--- NOTE | 2024-04-18 14:59 | P.PN ---
Subjective Progress Note Date: 04/18/24 This is a 68-year-old female with history of metastatic rectal cancer presented to the ER 04/10 mostly with abdominal pain. Patient has been receiving chemotherapy for her rectal cancer, her first treatment was March 29. Patient has not been feeling well since March 29, presented to the ER with f ew days history of abdominal pain, lower abdominal pain. Patient had some nausea, no vomiting. No bowel movement for the few days, patient noted no fever, no chills, CT of the abdomen pelvis showed pneumoperitoneum and possible perforation of the ascending colon. Patient underwent exploratory laparotomy sigmoid colon resection with end colostomy. Patient was found to have perforated diverticulitis of the sigmoid colon. Postoperatively, patient was sent to the ICU, intubated mechanically ventilated, she is presently on assist- control rate of 16, tidal volume increased to 350, FiO2 100% and PEEP of 5. ABG on FiO2 of 100% showed a pO2 of 392, pCO2 of 53 pH of 7.35, hence vent adjustment was made and she was on FiO2 of 40%, rate of 16, and tidal volume of 350. Patient is hemodynamically stable, not requiring any pressors, she is however requiring fluids for relatively marginal blood pressure and tachycardia. Her electrolytes showed low potassium of 3.0 that is being addressed accor dingly bicarb is 27 renal profile is normal WBC count is 1.4 hemoglobin 13.8. Her WBC count on admission was 7.5 dropped down significantly to 1.4. Antibiotics miranda, patient received cefepime, she is also on metronidazole, patient could not be placed on Zosyn mostly because of her penicillin allergy. On her initial presentation she received Levaquin she also received a Rocephin. 04/11/2024 patient seen and examined at bedside. Patient still in the ICU intubated, sedated and mechanically ventilated. Ventilator settings are assist- control with a rate of 16, tidal volume 350, PEEP of 5 with FiO2 40%. No acute events overnight. Currently drips are normal saline 0.9% with a rate of 130 cc /h, propofol with a rate of 40 and Levophed of 0.02 mcg/kg/min. Chest x-ray shows atelectasis at the right lung base with ET tube, NG tube, and central venous catheters in place. ABG Shows CO2 22, CO2 41 and pH of 7.36. Other labs today show WBC 4.3, hemoglobin 11.5, platelet count 1 59,000, sodium 134, potassium 4.2 BUN 16, creatinine 0.58 glucose 102, calcium 7.6, phosphorus 3, magnesium 2.1 04/12/2024 patient seen and examined at bedside. Patient still in the ICU and was extubated around 11 AM yesterday at 04/11. Overnight, patient had an episode of A-fib with rapid ventricular response with associated hypotension. Currently on IV fluids normal saline at 100 cc, amiodarone IV at 0.5 mg/min, heparin drip at 12 units/kg/h, and Cardizem drip at 1 mg/h. Chest x-ray today shows mild atelectatic type changes at the left base with central venous catheter, NG tube in place. Labs today showed WBC 9.9 hemoglobin 10.4 platelet count 190,000 PTT 36.1 PTT 12.1 INR 1.1 sodium 137 potassium 3.3 chloride 112 bicarb 21 BUN 18 creatinine 0.62 glucose 100 calcium 8.4 magnesium 2.1 04/13/2024 patient seen and examined at bedside. No acute events overnight. Postop exploratory laparotomy and sigmoid colon resection with end colostomy day 3. Currently on IV fluids normal saline at 100 cc, amiodarone IV at 0.5 mg/min and heparin drip at 12 units/kg/h. On day 4 of metronidazole IV and cefepime IV. Chest x-ray showed interval development of some mild infiltrate at the right base which is likely atelectasis with small left pleural effusion and NG tube and central venous catheter and port catheter seen and in place. Labs today show WBC 12.4, hemoglobin 10.1, platelet count 1 93,000 PTT 49.9, sodium 136, potassium 4, bicarb 18, BUN 19, creatinine 0.46, glucose 90, calcium 8.7. TSH less than 0.0 15 Free T41.72. Echocardiogram showed hyperdynamic LV, EF 60%, concerns of concentric LVH with mid ventricular obstruction with elevated gradients with peak gradients more than 100 mmHg, systolic anterior motion of mitral valve with moderate MR. 04/14/2024 patient seen and examined at bedside. No acute events overnight. Postop exploratory laparotomy and sigmoid colon resection with end colostomy day 4. Currently on IV fluids lactated Ringer's at 50 cc/h, and heparin 12 units/k g/h. On day 5, metronidazole IV and cefepime IV. Labs today show WBC 10.2, hemoglobin 10.2, platelet count 190,000 PTT 44.4, sodium 136, potassium 3.7, chloride 109, bicarb 21, BUN 18, creatinine 0.43, glucose 71, calcium 8.6 04/15/2024 patient seen and examined at bedside. No acute events overnight. NG tube removed. Patient started on clear liquid diet yesterday. Postop exploratory laparotomy and sigmoid colon resection with end colostomy day 5. Currently on IV fluids lactated Ringer's at 50 cc/h. Labs today show WBC 10.2, hemoglobin 10.5, platelet count 1 75,000, PTT 53.7, sodium 135, potassium 3.7, bicarb 23, chloride 107, BUN 18, creatinine 0.39, glucose 106, calcium 8.5 Progress note dated April 16, 2024. This is a 68-year-old female with history of postoperative day #6, status post exploratory laparotomy and sigmoid colon resection, with end colostomy. The patient was transferred out of the intensive care unit. The patient is doing very well. She is seen today in room 354. She is on room air. She is not receiving any IV fluids. NG tube has been removed. Current labs include a white count 15.2, hemoglobin 10.2, hematocrit 30.5, and a normal platelet count. Sodium 136, potassium 3.6, chlorides 107, CO2 26, BUN 16, creatinine 0.4. Glucose is 110. Calcium is 8.4. Progress note dated April 17, 2024. 68-year-old female with a history of postoperative day #7, status post exploratory laparotomy sigmoid colon resection with end colostomy. The patient was transferred out of the intensive care unit, a few days ago. Clinically she is doing well. She is currently on room air. No IV fluids. NG tube has been removed. She is taking nutrition by mouth. She has no specific complaints today. The only blood work today is a glucose of 123. On 04/18/2024, the patient is being seen for a follow-up. The patient is postop day #8 following a expiratory laparotomy and sigmoid resection with end colostomy. Surgical wound site is dry clean and intact. Eva are in place. Colostomy site is functional. No significant nausea vomiting or abdominal pain. The patient is tolerating diet at this point in time. She has increased edema in all 4 extremities. She is currently on room air oxygen. The patient denies having any significant shortness of breath. She is on room air oxygen with a pulse ox of 97%. The white cell count of 18 with a hemoglobin of 10 and a platelet count of 182. BUN is 13 with a creatinine of 0.4 and a sodium levels at 133 and a potassium level is at 3.1. Noted the patient also has history of metastatic rectal cancer being treated with chemotherapy on outpatient basis. She is status post sigmoid resection for a perforated diverticulitis of the sigmoid colon. She is also post respiratory failure requiring intubation mechanical ventilation. Antibiotic coverage includes IV cefepime for now. She is on [place] for pain control. Blood cultures are negative. She is awake and alert and she is also communicating. Complaining of extensive weakness and profound edema in all 4 extremities. She is known to have hypoproteinemia and hypoalbuminemia. She is also on anticoagulation with Eliquis 5 mg p.o. twice daily regarding atrial fibrillation. Objective - Vital Signs Vital signs: Vital Signs Temp 98.3 F 04/18/24 08:00 Pulse 90 04/18/24 08:00 Resp 18 04/18/24 08:00 BP 133/67 04/18/24 08:00 Pulse Ox 97 04/18/24 08:00 FiO2 40 04/14/24 16:00 Intake & Output 04/17/24 04/18/24 04/18/24 18:59 06:59 18:59 Intake Total 240 630 0 Output Total 1999 Balance -1760 630 0 Weight 41 kg Intake: IV 510 Invasive Line 7 10 metroNIDAZOLE-NS PMX 500 500 mg In Saline 1 100ml.bag @ 100 mls/hr IVPB Q8H [facility] Rx#:[id number] Oral 240 120 0 Output: Urine 1999 Other: Voiding Method Indwelling Catheter Indwelling Catheter Indwelling Catheter ABP, PAP, CO, CI - Last Documented Arterial Blood Pressure 122/51 - Exam No acute distress, oriented 3. Currently on room air. HEENT examination is grossly unremarkable. Mucous membranes are moist. No oral lesions. Neck supple. Full range of motion. No adenopathy thyromegaly or neck vein distention. Cardiovascular examination reveals regular rhythm rate. S1-S2 normal. No S3 or S4. No discernible murmur noted. Lungs reveal mostly clear breath sounds. Minimal scattered rhonchi. No wheezes or crackles. Breath sounds equal bilaterally. Abdomen with occasional bowel sounds. Colostomy is noted. The colostomy is functioning the surgical wound site over the mid abdomen is dry clean and intact. Eva are still in place. Extremities are intact. No cyanosis clubbing positive +1-2 edema in all 4 extremities mainly in the lower extremities bilaterally. Skin is without rash or lesion. Neurologic examination is brief but nonfocal. - Labs CBC & Chem 7: 04/18/24 06:47 04/18/24 06:47 Labs: Abnormal Lab Results - Last 24 Hours (Table) 04/17/24 04/17/24 04/17/24 Range/Units 12:41 16:21 20:08 WBC (3.8-10.6) k/uL RBC (3.80-5.40) m/uL Hgb (11.4-16.0) gm/dL Hct (34.0-46.0) % Neutrophils # (1.3-7.7) k/uL Lymphocytes # (1.0-4.8) k/uL Sodium (137-145) mmol/L Potassium (3.5-5.1) mmol/L Creatinine (0.52-1.04) mg/dL Glucose (74-99) mg/dL POC Glucose (mg/dL) 121 H 117 H (70-110) mg/dL Calcium (8.4-10.2) mg/dL Total Protein 4.4 L (6.3-8.2) g/dL Albumin 1.9 L (3.5-5.0) g/dL 04/18/24 04/18/24 04/18/24 Range/Units 05:58 06:47 06:47 WBC 18.4 H (3.8-10.6) k/uL RBC 3.31 L (3.80-5.40) m/uL Hgb 10.0 L (11.4-16.0) gm/dL Hct 31.3 L (34.0-46.0) % Neutrophils # 16.6 H (1.3-7.7) k/uL Lymphocytes # 0.9 L (1.0-4.8) k/uL Sodium 133 L (137-145) mmol/L Potassium 3.1 L (3.5-5.1) mmol/L Creatinine 0.43 L (0.52-1.04) mg/dL Glucose 131 H (74-99) mg/dL POC Glucose (mg/dL) 127 H (70-110) mg/dL Calcium 8.0 L (8.4-10.2) mg/dL Total Protein 4.1 L (6.3-8.2) g/dL Albumin 1.7 L (3.5-5.0) g/dL 04/18/24 Range/Units 11:29 WBC (3.8-10.6) k/uL RBC (3.80-5.40) m/uL Hgb (11.4-16.0) gm/dL Hct (34.0-46.0) % Neutrophils # (1.3-7.7) k/uL Lymphocytes # (1.0-4.8) k/uL Sodium (137-145) mmol/L Potassium (3.5-5.1) mmol/L Creatinine (0.52-1.04) mg/dL Glucose (74-99) mg/dL POC Glucose (mg/dL) 146 H (70-110) mg/dL Calcium (8.4-10.2) mg/dL Total Protein (6.3-8.2) g/dL Albumin (3.5-5.0) g/dL Assessment and Plan Plan: Postoperative day #8, status post exploratory laparotomy, sigmoid colon resection with end colostomy. Surgery was done for pneumoperitoneum and the patient was found to have a perforated sigmoid diverticulitis status post sigmoid colectomy and end colostomy. Patient is tolerating diet. Colostomy is functional. Surgical wound site dry clean and intact. Routine postoperative ventilator management, with successful extubation. The patient is currently on room air oxygen. Paroxysmal atrial fibrillation, maintained on anticoagulation with Eliquis. The patient is currently in normal sinus mechanism. Hypertension. Pneumoperitoneum, a result of the exploratory laparotomy. Acute hypoxemic respiratory failure, resolved. Patient is currently on room air oxygen Abdominal sepsis, resolved. Remains on IV cefepime and blood cultures negative Lactic acidosis, resolved. History of metastatic rectal carcinoma. History of hypertrophic obstructive cardiomyopathy. Hyperproteinemia Lower extremity edema Plan: Continue using incentive spirometer Continue IV cefepime Advance diet as tolerated Surgical wound site is dry clean and intact Colostomy is functional Give the patient 20 mg of IV Lasix x 2 doses Monitor serum protein and albumin levels Labs were noted, potassium needs to be replaced Continue amiodarone 200 mg p.o. twice daily and metoprolol 50 mg p.o. twice daily and the patient is on anticoagulation with Eliquis Pain control with [place] Continue Cozaar Continue IV Protonix Will continue to follow
[2024-04-18 16:33] LABS: Glucose,Whole Blood 107 mg/dL (70-110)
--- NOTE | 2024-04-18 16:34 | CT ---
EXAMINATION TYPE: CT abdomen pelvis w con CT DLP: 1074.1 mGycm, Automated exposure control for dose reduction was used. DATE OF EXAM: 04/18/2024 4:21 PM COMPARISON: CT abdomen pelvis 04/10/2024, PET CT 02/19/2024, CT chest abdomen and pelvis 02/08/2024 CLINICAL INDICATION:Female, 68 years old with history of Worsening WBC, perforated diverticulitis; Wo rsening WBC, perforated diverticulitis. TECHNIQUE: Standard CT of the abdomen and pelvis following the administration of 100 cc of Isovue 3 00 IV contrast material and oral contrast. Coronal and sagittal reformats were performed. FINDINGS: LOWER CHEST: Partial visualization of small left and moderate right pleural effusions associated atel ectasis. Coronary artery calcifications. ABDOMEN LIVER: Unremarkable GALLBLADDER AND BILE DUCTS: Layering increased densities within the lumen consistent with gallstones are present. PANCREAS: Unremarkable. SPLEEN: Unremarkable. ADRENAL GLANDS: Unremarkable. KIDNEYS AND URETERS: No evidence of hydronephrosis or renal calculus. The kidneys enhance symmetrical ly. Contrast is demonstrated within both collecting systems on the delayed phase. PELVIS BLADDER: Nondistended with Ritchie catheter in place. REPRODUCTIVE: Poorly visualized due to streak artifact from hip prosthesis. ABDOMEN & PELVIS STOMACH AND BOWEL: Stomach and duodenum are unremarkable. Postsurgical changes with left lower quadra nt ostomy. Suture is identified involving the sigmoid colon with sigmoid diverticulosis identified. E nteric contrast reaches the mid small bowel. No extravasation of oral contrast identified. No evidenc e of bowel obstruction. Poor visualization of known rectal cancer. Due to streak artifact from hip pr osthesis. PERITONEUM: Trace pneumoperitoneum. Small volume ascites throughout the abdomen and pelvis. There is some minimal enhancement involving the fluid within the pelvis however evaluation is poorly visualize d due to hip prosthesis (series 201, image 71). This grossly measures 4.1 x 3.0 cm. Additional perihe patic curvilinear elongated fluid collection measuring 11.2 x 1.3 cm with focal wall enhancement and couple foci of internal gas. VASCULATURE: Moderate atherosclerotic calcifications are present throughout the abdominal aorta and i ts branches. No evidence of aortic aneurysm. MUSCULOSKELETAL: No acute osseous abnormalities. Postsurgical changes from bilateral hip arthroplasty . LYMPH NODES: Few mildly prominent periaortic lymph nodes which have decreased in size from prior CT 1 . SOFT TISSUE/ABDOMINAL WALL: Postoperative changes of the anterior midline abdominal wall with skin st aples. Diffuse anasarca. Left lower quadrant ostomy. IMPRESSION: 1. Postsurgical changes with left lower quadrant ostomy. There is trace pneumoperitoneum with small volume ascites throughout the abdomen and pelvis. There appears to be a somewhat organized fluid rell ection poorly visualized within the left pelvis measuring up to 4.1 cm concerning for possible absces s. Additional organized fluid collection in the perihepatic region concerning for abscess. Evaluation is limited due to streak artifact from hip prosthesis. 2. Diffuse anasarca with partial visualization of moderate right and small left pleural effusions. Co rrelate for volume overload. 3. Known rectal cancer is poorly visualized due to streak artifact from hip prosthesis. [facility], , 04/18/2024 4:32 PM
[2024-04-18] MEDS: FUROSEMIDE 10 MG/ML 2 ML VIAL IV SCH (16:48)
[2024-04-18 20:27] LABS: Glucose,Whole Blood 109 mg/dL (70-110)
--- NOTE | 2024-04-19 05:17 | P.PN ---
Subjective Progress Note Date: 04/18/24 Principal diagnosis: Reason for follow-up is parotitis perforated diverticulitis Patient is a 68-year-old female with a past medical history significant for hypertension osteoarthritis hypothyroidism, metastatic rectal cancer previous history of smoking presenting to the hospital for evaluation of abdominal pain, the patient CT has been suggestive of pneumoperitoneum with diagnosis of perforated sigmoid diverticulitis patient is status post laparotomy sigmoid resection and end colostomy. On today's evaluation that is 04/18/2023, patient has been afebrile, patient is breathing comfortably and is currently on room air, patient denies having any significant cough no chest pain, patient denies nausea vomiting or abdominal pain he did have output in colostomy. Patient white count is up to 10.4 creatinine 0.43 has been negative Objective - Vital Signs Vital signs: Vital Signs Temp 98.3 F 04/18/24 08:00 Pulse 90 04/18/24 08:00 Resp 18 04/18/24 08:00 BP 133/67 04/18/24 08:00 Pulse Ox 97 04/18/24 08:00 FiO2 40 04/14/24 16:00 Intake & Output 04/17/24 04/18/24 04/18/24 18:59 06:59 18:59 Intake Total 240 630 0 Output Total 1999 Balance -1760 630 0 Weight 41 kg Intake: IV 510 Invasive Line 7 10 metroNIDAZOLE-NS PMX 500 500 mg In Saline 1 100ml.bag @ 100 mls/hr IVPB Q8H [facility] Rx#:[id number] Oral 240 120 0 Output: Urine 2000 Other: Voiding Method Indwelling Catheter Indwelling Catheter Indwelling Catheter ABP, PAP, CO, CI - Last Documented Arterial Blood Pressure 122/51 - Exam GENERAL DESCRIPTION: An elderly female lying in bed in no distress RESPIRATORY SYSTEM: Unlabored breathing , decreased breath sounds at bases HEART: S1 S2 regular rate and rhythm , ABDOMEN: Soft , mild tenderness EXTREMITIES: No edema feet - Labs CBC & Chem 7: 04/18/24 06:47 04/18/24 06:47 Labs: Abnormal Lab Results - Last 24 Hours (Table) 04/17/24 04/17/24 04/18/24 Range/Units 16:21 20:08 05:58 WBC (3.8-10.6) k/uL RBC (3.80-5.40) m/uL Hgb (11.4-16.0) gm/dL Hct (34.0-46.0) % Neutrophils # (1.3-7.7) k/uL Lymphocytes # (1.0-4.8) k/uL Sodium (137-145) mmol/L Potassium (3.5-5.1) mmol/L Creatinine (0.52-1.04) mg/dL Glucose (74-99) mg/dL POC Glucose (mg/dL) 121 H 117 H 127 H (70-110) mg/dL Calcium (8.4-10.2) mg/dL Total Protein (6.3-8.2) g/dL Albumin (3.5-5.0) g/dL 04/18/24 04/18/24 04/18/24 Range/Units 06:47 06:47 11:29 WBC 18.4 H (3.8-10.6) k/uL RBC 3.31 L (3.80-5.40) m/uL Hgb 10.0 L (11.4-16.0) gm/dL Hct 31.3 L (34.0-46.0) % Neutrophils # 16.6 H (1.3-7.7) k/uL Lymphocytes # 0.9 L (1.0-4.8) k/uL Sodium 133 L (137-145) mmol/L Potassium 3.1 L (3.5-5.1) mmol/L Creatinine 0.43 L (0.52-1.04) mg/dL Glucose 131 H (74-99) mg/dL POC Glucose (mg/dL) 146 H (70-110) mg/dL Calcium 8.0 L (8.4-10.2) mg/dL Total Protein 4.1 L (6.3-8.2) g/dL Albumin 1.7 L (3.5-5.0) g/dL Assessment and Plan (1) Sepsis Current Visit: Yes Status: Acute Code(s): A41.9 - SEPSIS, UNSPECIFIED ORGAN ISM SNOMED Code(s): 76788048 (2) Peritonitis Current Visit: Yes Status: Acute Code(s): K65.9 - PERITONITIS, UNSPECIFIED SNOMED Code(s): 94731090 (3) Perforation of sigmoid colon due to diverticulitis Current Visit: Yes Status: Acute Priority: High Code(s): K57.20 - DVTRCLI OF LG INT W PERFORATION AND ABSCESS W/O BLEEDING SNOMED Code(s): 8258191792558471 Plan: 1patient presented to hospital with sepsis in this patient who did have hypotension tachycardia leukopenia meeting criteria for SIRS source is likely perforated sigmoid diverticulitis with peritonitis, we will need to cover for the enteric gram-negative both aerobes and anaerobes keeping in mind her history of metastatic rectal cancer chemo and has been out of the hospital need to cover for resistant gram-negative pathogen 2-penicillin allergy therapy limit the number of antibiotics safe to use 3-patient is afebrile, however noticed a slight worsening of the white count, continue cefepime Flagyl and Diflucan and monitor course closely Dictation was produced using [employer] dictation software. please excuse any grammatical, word or spelling errors. Time with Patient: Less than 30
[2024-04-19 06:07] LABS: Glucose,Whole Blood 104 mg/dL (70-110)
[2024-04-19] MEDS: ANIDULAFUNGIN 200 MG in SODIUM CHLORIDE 0.9% 200 ML IVPB ONE (06:13)
[2024-04-19 08:22] LABS: African American GFR (CKD) >90 (>60 ml/min/1.73 sqM); Anion Gap 4 mmol/L; Blood Urea Nitrogen 15 mg/dL (7-17); Carbon Dioxide 30 mmol/L (22-30); Chloride 100 mmol/L (98-107); Glucose 91 mg/dL (74-99); Non-African American GFR(CKD) >90 (>60 ml/min/1.73 sqM); Potassium 3.5 mmol/L (3.5-5.1); Sodium 134 mmol/L (137-145)
[2024-04-19 08:31] LABS: Basophils % (A) 0 %; Eosinophils % (A) 0 %; HCT 29.3 % (34.0-46.0); HGB 9.7 gm/dL (11.4-16.0); Lymphocytes # (A) 0.9 k/uL (1.0-4.8); Lymphocytes % (A) 5 %; MCH 30.5 pg (25.0-35.0); MCHC 33.2 g/dL (31.0-37.0); Mean Platelet Volume 8.4; Monocytes # (A) 0.8 k/uL (0-1.0); Monocytes % (A) 5 %; Neutrophils # (A) 14.4 k/uL (1.3-7.7); Neutrophils % (A) 89 %; Platelet Count 208 k/uL (150-450); RBC 3.18 m/uL (3.80-5.40); WBC 16.1 k/uL (3.8-10.6)
--- NOTE | 2024-04-19 09:17 | P.PN ---
Subjective patient is a 68-year-old lady with past medical history significant for metastatic rectal cancer brought to the ER for evaluation of lower abdominal pain. Patient that she has been not been feeling well for the last few days. Patient stated that she was having lower quad abdominal pain which was generalized, nonradiating, no aggravating or leaving factors associated abdominal pain. Patient also complaining of constipation and has not had a b owel movement in a number of days. There was no complaint of fever or chills. There was complaint of nausea but no vomiting. Patient stated she recently started chemotherapy. Because of these symptoms, patient presented to the ER Initial lab work done in the ER showed WBC 7.5, hemoglobin 9.5, platelet count 335, sodium 130, potassium 3, BUN 14, creatinine 0.53, lactate 4.5 EKG done in the ER showed heart rate of 116 , no ST segment elevation or depression seen, no T-wave inversions seen. CT abdominal pelvis done showed large pneumoperitoneum, mild circumferential wall thickening of a short segment of ascending colon and proximal sigmoid colon in associated with diverticula suggest diverticulitis versus colitis Patient admitted to internal medicine service 04/11. Patient seen and examined. Patient currently intubated, opening eyes and following commands. 04/12. Patient seen examined. Patient is currently extubated. Alert, currently has NG tube in. Lab work done this morning showed WBC 9.9, hemoglobin 10.4, platelet count 190, sodium 137, potassium 3.3, BUN 18, creatinine 0.62, glucose 100. Patient went to [facility] overnight, currently on amiodarone. 04/13. Patient seen and examined. CurrentlyLaying in the chair. Still has NG tube in. Stated pain has slightly improved. Currently on IV amiodarone, heparin. 04/14. Patient seen examined. States she feels better. Patient started on clear liquid diet . Blood work done this morning showed WBC 10.2, hemoglobin 9.2, platelet count 190, sodium 137 potassium 3.7, BUN 18, creatinine 0.43. Patient currently on oral amiodarone and IV heparin 04/15. Patient seen and examined. Patient transferred out of ICU 04/16. Patient seen and examined. Blood work done this morning showed WBC 15.2, hemoglobin 10.2, sodium 136, potassium 3.6, BUN 16, creatinine 0.40. 04/17. Patient seen and examined. Complaining of nausea, poor appetite. 04/18 Patient still complains from abdominal pain about 7/10 Colostomy bag in the left lower quadrant is working She ate little bit. Currently she is on regular diet She has central vertical abdominal wound with dressing in place Ritchie catheter in place 04/19 Patient awake and alert, no vomiting, she tolerates liquid diet only Abdominal pain is ongoing and does not look significant worsening Left lower quadrant colostomy bag is in place with brown stool which looks somewhat loose but not watery. Repeat CT of the abdomen and pelvis yesterday showing organized fluid collection in the left pelvis about 4.1 cm suspicious for an abscess and another 1 in the perihepatic area. I reviewed the CAT scan by myself and agree Patient continued on cefepime and Eraxis was added as well Patient also on Eliquis for A-fib Review of systems CONSTITUTIONAL: No fever, no malaise, no fatigue. HEENT: No recent visual problems or hearing problems. Denied any sore throat. CARDIOVASCULAR: No orthopnea, PND, no palpitations, no syncope. HEMATOLOGICAL: Denies any bleeding or petechiae. GENITOURINARY: Denies any burning micturition, frequency, or urgency. MUSCULOSKELETAL/RHEUMATOLOGICAL: Denies any joint pain, swelling, or any muscle pain. Active Medications Generic Name Dose Route Start Last Admin Trade Name Freq PRN Reason Stop Dose Admin Hydrocodone Bitart/Acetaminophen 1 each 04/15/24 08:22 04/18/24 12:43 Hydrocodone/Apap 5-325mg 1 Each Tab PO 1 each Q4HR PRN Administration Pain Alprazolam 0.25 mg 04/13/24 09:05 04/14/24 09:14 Alprazolam 0.25 Mg Tab PO 0.25 mg BID PRN Administration Anxiety Amiodarone HCl 200 mg 04/15/24 09:00 04/19/24 08:14 Amiodarone 200 Mg Tab PO 200 mg BID ABBEY Administration Apixaban 5 mg 04/15/24 09:00 04/19/24 08:14 Apixaban 5 Mg Tab PO 5 mg BID ABBEY Administration Protocol Hydromorphone HCl 1 mg 04/10/24 08:12 04/19/24 03:30 Hydromorphone 1 Mg/Ml 1 Ml Syringe IVP 1 mg Q3HR PRN Administration Severe Pain (Scale 7 to 10) Cefepime HCl 2 gm/ Sodium 100 mls @ 25 mls/hr 04/10/24 16:00 04/19/24 08:14 Chloride IVPB 25 mls/hr Q8HR ABBEY Administration Protocol Anidulafungin 100 mg/ Sodium 100 mls @ 84 mls/hr 04/20/24 09:00 Chloride IVPB DAILY ABBEY Protocol Iopamidol 30 ml 04/18/24 13:50 04/18/24 14:43 Iopamidol Contrast (Oral Use) Vial PO 04/19/24 13:52 30 ml Q60M PRN Administration CT Scan Losartan Potassium 25 mg 04/17/24 09:45 04/19/24 08:14 Losartan 25 Mg Tab PO 25 mg DAILY ABBEY Administration Metoprolol Tartrate 50 mg 04/14/24 09:00 04/19/24 08:14 Metoprolol Tartrate 50 Mg Tab PO 50 mg BID ABBEY Administration Miscellaneous Information 1 each 04/10/24 15:04 Potassium Replacement Protocol 1 Each Misc MISCELLANE DAILY PRN Per Protocol Protocol Miscellaneous Information 1 each 04/10/24 15:05 Magnesium Replacement Protocol 1 Each Misc MISCELLANE DAILY PRN Per Protocol Protocol Miscellaneous Information 1 each 04/12/24 09:58 Potassium Replacement Protocol 1 Each Misc MISCELLANE DAILY PRN Per Protocol Protocol Miscellaneous Information 1 each 04/12/24 16:32 Potassium Replacement Protocol 1 Each Misc MISCELLANE DAILY PRN Per Protocol Protocol Naloxone HCl 0.2 mg 04/10/24 16:41 Naloxone 0.4 Mg/Ml 1 Ml Vial IV Q2M PRN Opioid Reversal Ondansetron HCl 4 mg 04/10/24 08:12 04/19/24 03:30 Ondansetron 4 Mg/2 Ml Vial IVP 4 mg Q8HR PRN Administration Nausea And Vomiting Pantoprazole Sodium 40 mg 04/10/24 09:00 04/19/24 08:14 Pantoprazole 40 Mg/10 Ml Vial IV 40 mg DAILY ABBEY Administration Objective - Vital Signs Vital signs: Vital Signs Temp 98.0 F 04/19/24 03:23 Pulse 67 04/19/24 03:23 Resp 16 04/19/24 03:23 BP 154/75 04/19/24 03:23 Pulse Ox 96 04/19/24 03:23 FiO2 40 04/14/24 16:00 Intake & Output 04/18/24 04/19/24 04/19/24 18:59 06:59 18:59 Intake Total 240 Output Total 1000 700 Balance -760 -700 Weight 41 kg Intake: Oral 240 Output: Urine 1000 700 Other: Voiding Method Indwelling Catheter Indwelling Catheter ABP, PAP, CO, CI - Last Documented Arterial Blood Pressure 122/51 - Exam GENERAL: The patient is alert and oriented x3, not in any acute distress. Well developed, well nourished. HEENT: Pupils are round and equally reacting to light. EOMI. No scleral icterus. No conjunctival pallor. Normocephalic, atraumatic. No pharyngeal erythema. No thyromegaly. CARDIOVASCULAR: S1 and S2 present. No murmurs, rubs, or gallops. PULMONARY: Chest is clear to auscultation, no wheezing , no crackles. ABDOMEN: Soft, nontender, nondistended, normoactive bowel sounds. No palpable o rganomegaly. MUSCULOSKELETAL: No joint swelling or deformity. EXTREMITIES: No cyanosis, clubbing, or pedal edema. NEUROLOGICAL: Gross neurological examination did not reveal any focal deficits. SKIN: No rashes. no petechiae. - Labs CBC & Chem 7: 04/19/24 06:23 04/19/24 06:23 Labs: Abnormal Lab Results - Last 24 Hours (Table) 04/18/24 04/18/24 04/19/24 Range/Units 06:47 11:29 06:23 WBC 18.4 H 16.1 H (3.8-10.6) k/uL RBC 3.31 L 3.18 L (3.80-5.40) m/uL Hgb 10.0 L 9.7 L (11.4-16.0) gm/dL Hct 31.3 L 29.3 L (34.0-46.0) % Neutrophils # 16.6 H 14.4 H (1.3-7.7) k/uL Lymphocytes # 0.9 L 0.9 L (1.0-4.8) k/uL Sodium (137-145) mmol/L Creatinine (0.52-1.04) mg/dL POC Glucose (mg/dL) 146 H (70-110) mg/dL Calcium (8.4-10.2) mg/dL 04/19/24 Range/Units 06:23 WBC (3.8-10.6) k/uL RBC (3.80-5.40) m/uL Hgb (11.4-16.0) gm/dL Hct (34.0-46.0) % Neutrophils # (1.3-7.7) k/uL Lymphocytes # (1.0-4.8) k/uL Sodium 134 L (137-145) mmol/L Creatinine 0.44 L (0.52-1.04) mg/dL POC Glucose (mg/dL) (70-110) mg/dL Calcium 8.0 L (8.4-10.2) mg/dL Assessment and Plan Assessment: Pneumoperitoneum, status post exploratory laparotomy and sigmoid colon resection with end colostomy Repeat CAT scan on 04/18 showing possible left pelvic abscess 4.1 cm and smaller perihepatic abscess Metastatic rectal cancer Who comes with mitral regurgitation Intra-abdominal infection and sepsis A-fib with RVR Acute hypoxic respiratory failure Acute sigmoid colon perforation Acute diverticulitis Hyponatremia Hypokalemia Lactic acidosis History of rectal cancer Plan: Continue IV cefepime, and Eraxis Currently on Eliquis and amiodarone Aggressive bronchopulmonary hygiene Was on clear liquid diet, diet advanced per surgery to regular diet. However patient still taking liquid diet currently Pulmonology following Surgery following ID following Labs and medication were reviewed.. Continue same treatment. Continue with symptomatic treatment. Resume home medication. Monitor labs and vitals. DVT and GI prophylaxis. Further recommendations as per clinical course of the patient DVT prophylaxis: S Eliquis GI Prophylaxis: PPI PT/OT: Pending Prognosis is guarded
--- NOTE | 2024-04-19 11:04 | P.PN ---
Subjective Progress Note Date: 04/19/24 SURGICAL PROGRESS NOTE CHIEF COMPLAINT: Perforated diverticulitis HISTORY OF PRESENT ILLNESS: Patient is postop day #9 status post exploratory laparotomy with sigmoid colectomy with end colostomy for perforated diverticulitis of the sigmoid colon. Patient CT scan abdomen pelvis reports there appears to be a somewhat organized fluid collection poorly visualized in the left pelvis measuring up to 4.1 cm concerning for possible abscess and additional organized fluid collection in the perihepatic region concerning for abscess. Patient is afebrile. WBC is down from 18.4-16.1. Potassium better at 3.5. Ostomy is functioning. She did have nausea earlier today. Reports no vomiting. Her pain is controlled. She does have drainage from her incision. PHYSICAL EXAM: VITAL SIGNS: Reviewed. GENERAL: Well-developed in no acute distress. ABDOMEN: Soft. Nondistended. Ostomy on the left with stool present. Midline incision at the middle of the incision with 2 areas of purulent drainage noted NEUROLOGIC: Alert and oriented. Cranial nerves II through XII grossly intact. ASSESSMENT: 1. Perforated diverticulitis 2. Fluid collections noted on CT scan concerning for developing abscesses PLAN: -Consult interventional radiology for possible drainage of fluid collection -Discussed with nursing staff to clean midline incision with chlorhexidine wipes and cover with ABD daily -Continue antibiotics per ID service -Continue regular diet -Continue protein supplement -Encourage patient to increase activity level -Continue pain management -Encourage incentive spirometer use -DVT prophylaxis on Eliis Physician [employer] Consultant note has been reviewed by physician. Signing provider agrees with the documented findings, assessment, and plan of care. Objective - Vital Signs Vital signs: Vital Signs Temp 98.2 F 04/19/24 08:10 Pulse 76 04/19/24 08:10 Resp 18 04/19/24 08:10 BP 135/75 04/19/24 08:10 Pulse Ox 96 04/19/24 08:10 FiO2 40 04/14/24 16:00 Intake & Output 04/18/24 04/19/24 04/19/24 18:59 06:59 18:59 Intake Total 240 240 Output Total 1000 700 Balance -760 -700 240 Weight 41 kg 41 kg Intake: Oral 240 240 Output: Urine 1000 700 Other: Voiding Method Indwelling Catheter Indwelling Catheter Indwelling Catheter ABP, PAP, CO, CI - Last Documented Arterial Blood Pressure 122/51 - Labs CBC & Chem 7: 04/19/24 06:23 04/19/24 06:23 Labs: Abnormal Lab Results - Last 24 Hours (Table) 04/18/24 04/19/24 04/19/24 Range/Units 11:29 06:23 06:23 WBC 16.1 H (3.8-10.6) k/uL RBC 3.18 L (3.80-5.40) m/uL Hgb 9.7 L (11.4-16.0) gm/dL Hct 29.3 L (34.0-46.0) % Neutrophils # 14.4 H (1.3-7.7) k/uL Lymphocytes # 0.9 L (1.0-4.8) k/uL Sodium 134 L (137-145) mmol/L Creatinine 0.44 L (0.52-1.04) mg/dL POC Glucose (mg/dL) 146 H (70-110) mg/dL Calcium 8.0 L (8.4-10.2) mg/dL
[2024-04-19 11:11] LABS: Glucose,Whole Blood 148 mg/dL (70-110)
--- NOTE | 2024-04-19 13:05 | P.PN ---
Subjective HISTORY OF PRESENT ILLNESS: The patient is a 68-year-old female diagnosed recently with metastatic rectal carcinoma, started chemotherapy, presented with pneumoperitoneum and underwent colon resection and colostomy. She had episode of atrial fibrillation postoperatively. She is back in sinus mechanism. She is sitting up in the chair, has abdominal discomfort but no chest discomfort. She continues to be in sinus mechanism on Cleviprex for hypertension. She has no evidence of ventricular ectopic activity. She has been changed to oral amiodarone but continues to be on IV heparin. She continues to have an NG tube with no significant discharge from her colostomy. She had an echocardiogram done that showed a preserved systolic function with hypertrophic obstructive cardiomyopathy and MARISSA with moderate to severe mitral regurgitation. She has the diagnosis of hypertrophic cardiomyopathy in the past. April 15: The patient feels better overall, sitting up in the chair, continues to be in sinus mechanism. Her NG tube was removed. She denies any chest discomfort, dizziness or palpitations. She has no nausea. Hemodynamically she is stable on no vasopressors. She continues to be on IV heparin but she is able to take oral medications at this time. 04/16/2024 Patient examined this morning at the bedside. Patient currently denies chest pain or pressure. She reports improvement in her shortness of breath. She is tolerating clear liquid diet. Vital signs are stable. Blood pressure stable in the [id number]. 04/17/2023 Patient examined this morning the bedside. Patient currently denies chest pain or pressure. She denies shortness of breath. Patient's blood pressures overnight elevated with a systolic in the 160s. She continues to have edema in her extremities, worse in her arms. She is tolerating oral diet. Telemetry reveals sinus mechanism. 04/18/24 Patient examined this morning. She denies chest pain or pressure. Denies SOB. BP remains somewhat elevated. Telemetry reveals sinus mechanism. 04/19/2024 Patient examined this morning at the bedside. Patient denies chest pain or pressure. She denies shortness of breath. Telemetry reveals sinus mechanism. Blood pressures remain elevated overnight with a systolic in the [id number]. General surgery is following. Patient has fluid collections noted on CT scan that is concerning for developing abscess. IR is planning for drain placement. PHYSICAL EXAM: VITAL SIGNS: Reviewed. GENERAL: Well-developed in no acute distress. NECK: Supple. No JVD or thyromegaly LUNGS: Respirations even and unlabored. Lungs essentially clear to auscultation bilaterally. HEART: Regular rate and rhythm. S1 and S2 heard. Systolic murmur noted EXTREMITIES: Normal range of motion. No clubbing or cyanosis. Peripheral pulses intact. Bilateral upper and lower extremity edema ASSESSMENT: Pneumoperitoneum, status post colon resection and colostomy Fluid collections noted on CT scan, concerning for developing abscess Metastatic rectal carcinoma Paroxysmal atrial fibrillation, maintaining sinus mechanism Hypertrophic cardiomyopathy with mitral regurgitation Hypertension Hypoalbuminemia PLAN: Continue current cardiac medications Continue current dose of Losartan Continue to monitor blood pressure Recommend elevating extremities on pillows Recommend increased protein intake. Albumin low at 1.7 Encourage use of incentive spirometer Continue telemetry monitoring Increase activity as tolerated. Patient should be up into the chair daily. IR consulted for drain placement. Eliquis placed on hold. Further recommendations pending patient course Nurse practitioner note has been reviewed by physician. Signing provider agrees with the documented findings, assessment, and plan of care documented by HARVESTING CONTRACTOR as a scribe. Objective - Vital Signs Vital signs: Vital Signs Temp 98.0 F 04/19/24 03:23 Pulse 67 04/19/24 03:23 Resp 16 04/19/24 03:23 BP 154/75 04/19/24 03:23 Pulse Ox 96 04/19/24 03:23 FiO2 40 04/14/24 16:00 Intake & Output 04/18/24 04/19/24 04/19/24 18:59 06:59 18:59 Intake Total 240 Output Total 1000 700 Balance -760 -700 Weight 41 kg Intake: Oral 240 Output: Urine 1000 700 Other: Voiding Method Indwelling Catheter Indwelling Catheter ABP, PAP, CO, CI - Last Documented Arterial Blood Pressure 122/51 - Labs CBC & Chem 7: 04/19/24 06:23 04/19/24 06:23 Labs: Abnormal Lab Results - Last 24 Hours (Table) 04/18/24 04/18/24 04/19/24 Range/Units 06:47 11:29 06:23 WBC 18.4 H 16.1 H (3.8-10.6) k/uL RBC 3.31 L 3.18 L (3.80-5.40) m/uL Hgb 10.0 L 9.7 L (11.4-16.0) gm/dL Hct 31.3 L 29.3 L (34.0-46.0) % Neutrophils # 16.6 H 14.4 H (1.3-7.7) k/uL Lymphocytes # 0.9 L 0.9 L (1.0-4.8) k/uL Sodium (137-145) mmol/L Creatinine (0.52-1.04) mg/dL POC Glucose (mg/dL) 146 H (70-110) mg/dL Calcium (8.4-10.2) mg/dL 04/19/24 Range/Units 06:23 WBC (3.8-10.6) k/uL RBC (3.80-5.40) m/uL Hgb (11.4-16.0) gm/dL Hct (34.0-46.0) % Neutrophils # (1.3-7.7) k/uL Lymphocytes # (1.0-4.8) k/uL Sodium 134 L (137-145) mmol/L Creatinine 0.44 L (0.52-1.04) mg/dL POC Glucose (mg/dL) (70-110) mg/dL Calcium 8.0 L (8.4-10.2) mg/dL
[2024-04-19] MEDS: FUROSEMIDE 10 MG/ML 2 ML VIAL IV SCH (13:15)
--- NOTE | 2024-04-19 15:15 | P.PN ---
Subjective Progress Note Date: 04/19/24 Principal diagnosis: Reason for follow-up is parotitis perforated diverticulitis Patient is a 68-year-old female with a past medical history significant for hypertension osteoarthritis hypothyroidism, metastatic rectal cancer previous history of smoking presenting to the hospital for evaluation of abdominal pain, the patient CT has been suggestive of pneumoperitoneum with diagnosis of perforated sigmoid diverticulitis patient is status post laparotomy sigmoid resection and end colostomy. On today's evaluation that is 04/19/2023, Patient is afebrile this morning patient denies having any chest pain shortness of breath or cough, the patient is currently on room air, patient denies any abdominal pain no diarrhea no nausea no vomiting, mention feeling better. Patient white count slightly down to 16.1 creatinine 0.44 Objective - Vital Signs Vital signs: Vital Signs Temp 98.2 F 04/19/24 08:10 Pulse 67 04/19/24 11:46 Resp 17 04/19/24 11:46 BP 132/78 04/19/24 11:46 Pulse Ox 97 04/19/24 11:46 FiO2 40 04/14/24 16:00 Intake & Output 04/18/24 04/19/24 04/19/24 18:59 06:59 18:59 Intake Total 240 420 Output Total 1000 700 300 Balance -760 -700 120 Weight 41 kg 41 kg Intake: Oral 240 420 Output: Urine 1000 700 300 Other: Voiding Method Indwelling Catheter Indwelling Catheter Indwelling Catheter ABP, PAP, CO, CI - Last Documented Arterial Blood Pressure 122/51 - Exam GENERAL DESCRIPTION: An elderly female lying in bed in no distress RESPIRATORY SYSTEM: Unlabored breathing , decreased breath sounds at bases HEART: S1 S2 regular rate and rhythm , ABDOMEN: Soft , mild tenderness EXTREMITIES: No edema feet - Labs CBC & Chem 7: 04/19/24 06:23 04/19/24 06:23 Labs: Abnormal Lab Results - Last 24 Hours (Table) 04/19/24 04/19/24 04/19/24 Range/Units 06:23 06:23 11:09 WBC 16.1 H (3.8-10.6) k/uL RBC 3.18 L (3.80-5.40) m/uL Hgb 9.7 L (11.4-16.0) gm/dL Hct 29.3 L (34.0-46.0) % Neutrophils # 14.4 H (1.3-7.7) k/uL Lymphocytes # 0.9 L (1.0-4.8) k/uL Sodium 134 L (137-145) mmol/L Creatinine 0.44 L (0.52-1.04) mg/dL POC Glucose (mg/dL) 148 H (70-110) mg/dL Calcium 8.0 L (8.4-10.2) mg/dL Assessment and Plan (1) Sepsis Current Visit: Yes Status: Acute Code(s): A41.9 - SEPSIS, UNSPECIFIED ORGANISM SNOMED Code(s): 40461104 (2) Peritonitis Current Visit: Yes Status: Acute Code(s): K65.9 - PERITONITIS, UNSPECIFIED SNOMED Code(s): 38414030 (3) Perforation of sigmoid colon due to diverticulitis Current Visit: Yes Status: Acute Priority: High Code(s): K57.20 - DVTRCLI OF LG INT W PERFORATION AND ABSCESS W/O BLEEDING SNOMED Code(s): 07373485 [id number] Plan: 1patient presented to hospital with sepsis in this patient who did have hypotension tachycardia leukopenia meeting criteria for SIRS source is likely perforated sigmoid diverticulitis with peritonitis, we will need to cover for the enteric gram-negative both aerobes and anaerobes keeping in mind her history of metastatic rectal cancer chemo and has been out of the hospital need to cover for resistant gram-negative pathogen 2-penicillin allergy therapy limit the number of antibiotics safe to use 3-patient white count slightly trending down after addition of Eraxis Diflucan could not be added because of drug interaction will monitor white count closely continue with cefepime and Flagyl Dictation was produced using [employer] dictation software. please excuse any grammatical, word or spelling errors. Time with Patient: Less than 30
[2024-04-19 16:18] LABS: Glucose,Whole Blood 138 mg/dL (70-110)
[2024-04-19 20:16] LABS: Glucose,Whole Blood 139 mg/dL (70-110)
--- NOTE | 2024-04-19 21:05 | P.PN ---
Subjective Progress Note Date: 04/19/24 This is a 68-year-old female with history of metastatic rectal cancer presented to the ER 04/10 mostly with abdominal pain. Patient has been receiving chemotherapy for her rectal cancer, her first treatment was March 29. Patient has not been feeling well since March 29, presented to the ER with f ew days history of abdominal pain, lower abdominal pain. Patient had some nausea, no vomiting. No bowel movement for the few days, patient noted no fever, no chills, CT of the abdomen pelvis showed pneumoperitoneum and possible perforation of the ascending colon. Patient underwent exploratory laparotomy sigmoid colon resection with end colostomy. Patient was found to have perforated diverticulitis of the sigmoid colon. Postoperatively, patient was sent to the ICU, intubated mechanically ventilated, she is presently on assist- control rate of 16, tidal volume increased to 350, FiO2 100% and PEEP of 5. ABG on FiO2 of 100% showed a pO2 of 392, pCO2 of 53 pH of 7.35, hence vent adjustment was made and she was on FiO2 of 40%, rate of 16, and tidal volume of 350. Patient is hemodynamically stable, not requiring any pressors, she is however requiring fluids for relatively marginal blood pressure and tachycardia. Her electrolytes showed low potassium of 3.0 that is being addressed accor dingly bicarb is 27 renal profile is normal WBC count is 1.4 hemoglobin 13.8. Her WBC count on admission was 7.5 dropped down significantly to 1.4. Antibiotics miranda, patient received cefepime, she is also on metronidazole, patient could not be placed on Zosyn mostly because of her penicillin allergy. On her initial presentation she received Levaquin she also received a Rocephin. 04/11/2024 patient seen and examined at bedside. Patient still in the ICU intubated, sedated and mechanically ventilated. Ventilator settings are assist- control with a rate of 16, tidal volume 350, PEEP of 5 with FiO2 40%. No acute events overnight. Currently drips are normal saline 0.9% with a rate of 130 cc /h, propofol with a rate of 40 and Levophed of 0.02 mcg/kg/min. Chest x-ray shows atelectasis at the right lung base with ET tube, NG tube, and central venous catheters in place. ABG Shows CO2 22, CO2 41 and pH of 7.36. Other labs today show WBC 4.3, hemoglobin 11.5, platelet count 1 59,000, sodium 134, potassium 4.2 BUN 16, creatinine 0.58 glucose 102, calcium 7.6, phosphorus 3, magnesium 2.1 04/12/2024 patient seen and examined at bedside. Patient still in the ICU and was extubated around 11 AM yesterday at 04/11. Overnight, patient had an episode of A-fib with rapid ventricular response with associated hypotension. Currently on IV fluids normal saline at 100 cc, amiodarone IV at 0.5 mg/min, heparin drip at 12 units/kg/h, and Cardizem drip at 1 mg/h. Chest x-ray today shows mild atelectatic type changes at the left base with central venous catheter, NG tube in place. Labs today showed WBC 9.9 hemoglobin 10.4 platelet count 190,000 PTT 36.1 PTT 12.1 INR 1.1 sodium 137 potassium 3.3 chloride 112 bicarb 21 BUN 18 creatinine 0.62 glucose 100 calcium 8.4 magnesium 2.1 04/13/2024 patient seen and examined at bedside. No acute events overnight. Postop exploratory laparotomy and sigmoid colon resection with end colostomy day 3. Currently on IV fluids normal saline at 100 cc, amiodarone IV at 0.5 mg/min and heparin drip at 12 units/kg/h. On day 4 of metronidazole IV and cefepime IV. Chest x-ray showed interval development of some mild infiltrate at the right base which is likely atelectasis with small left pleural effusion and NG tube and central venous catheter and port catheter seen and in place. Labs today show WBC 12.4, hemoglobin 10.1, platelet count 1 93,000 PTT 49.9, sodium 136, potassium 4, bicarb 18, BUN 19, creatinine 0.46, glucose 90, calcium 8.7. TSH less than 0.0 15 Free T41.72. Echocardiogram showed hyperdynamic LV, EF 60%, concerns of concentric LVH with mid ventricular obstruction with elevated gradients with peak gradients more than 100 mmHg, systolic anterior motion of mitral valve with moderate MR. 04/14/2024 patient seen and examined at bedside. No acute events overnight. Postop exploratory laparotomy and sigmoid colon resection with end colostomy day 4. Currently on IV fluids lactated Ringer's at 50 cc/h, and heparin 12 units/k g/h. On day 5, metronidazole IV and cefepime IV. Labs today show WBC 10.2, hemoglobin 10.2, platelet count 190,000 PTT 44.4, sodium 136, potassium 3.7, chloride 109, bicarb 21, BUN 18, creatinine 0.43, glucose 71, calcium 8.6 04/15/2024 patient seen and examined at bedside. No acute events overnight. NG tube removed. Patient started on clear liquid diet yesterday. Postop exploratory laparotomy and sigmoid colon resection with end colostomy day 5. Currently on IV fluids lactated Ringer's at 50 cc/h. Labs today show WBC 10.2, hemoglobin 10.5, platelet count 1 75,000, PTT 53.7, sodium 135, potassium 3.7, bicarb 23, chloride 107, BUN 18, creatinine 0.39, glucose 106, calcium 8.5 Progress note dated April 16, 2024. This is a 68-year-old female with history of postoperative day #6, status post exploratory laparotomy and sigmoid colon resection, with end colostomy. The patient was transferred out of the intensive care unit. The patient is doing very well. She is seen today in room 354. She is on room air. She is not receiving any IV fluids. NG tube has been removed. Current labs include a white count 15.2, hemoglobin 10.2, hematocrit 30.5, and a normal platelet count. Sodium 136, potassium 3.6, chlorides 107, CO2 26, BUN 16, creatinine 0.4. Glucose is 110. Calcium is 8.4. Progress note dated April 17, 2024. 68-year-old female with a history of postoperative day #7, status post exploratory laparotomy sigmoid colon resection with end colostomy. The patient was transferred out of the intensive care unit, a few days ago. Clinically she is doing well. She is currently on room air. No IV fluids. NG tube has been removed. She is taking nutrition by mouth. She has no specific complaints today. The only blood work today is a glucose of 123. On 04/18/2024, the patient is being seen for a follow-up. The patient is postop day #8 following a expiratory laparotomy and sigmoid resection with end colostomy. Surgical wound site is dry clean and intact. Eva are in place. Colostomy site is functional. No significant nausea vomiting or abdominal pain. The patient is tolerating diet at this point in time. She has increased edema in all 4 extremities. She is currently on room air oxygen. The patient denies having any significant shortness of breath. She is on room air oxygen with a pulse ox of 97%. The white cell count of 18 with a hemoglobin of 10 and a platelet count of 182. BUN is 13 with a creatinine of 0.4 and a sodium levels at 133 and a potassium level is at 3.1. Noted the patient also has history of metastatic rectal cancer being treated with chemotherapy on outpatient basis. She is status post sigmoid resection for a perforated diverticulitis of the sigmoid colon. She is also post respiratory failure requiring intubation mechanical ventilation. Antibiotic coverage includes IV cefepime for now. She is on Lenox for pain control. Blood cultures are negative. She is awake and alert and she is also communicating. Complaining of extensive weakness and profound edema in all 4 extremities. She is known to have hypoproteinemia and hypoalbuminemia. She is also on anticoagulation with Eliquis 5 mg p.o. twice daily regarding atrial fibrillation. On 04/19/2024 patient is being seen for a follow-up. Patient is postop day #9. The patient underwent a sigmoid resection and end colostomy. Colostomy is still functional and the patient is tolerating her diet. The patient was complaining of some ongoing nausea and based on that, a CAT scan of the abdomen and pelvis was obtained on 04/18/2024 and the CAT scan showed postsurgical changes in the left lower quadrant ostomy. There was trace pneumoperitoneum and small volume ascites throughout the abdomen and pelvis. There was also an organized fluid collection in the left pelvic area measuring up to 4.1 cm in size and this was concerning for an underlying abscess formation. Additional organized fluid collection in the perihepatic region was also seen concerning for abscess and the patient continued to have diffuse anasarca with moderate right-sided pleural effusion and small left-sided pleural effusion. General surgery is on the case and interventional radiology was consulted for possible drainage of the fluid collection. Meanwhile, the patient remains on a combination of cefepime and Eraxis. The patient was reporting significant edema in all 4 extremities and the patient was given Lasix and the patient is currently in negative fluid balance of 1.4 L over the past 24 hours. Continues to have edema and based on that we will maintain the patient on Lasix 20 mg IV every 12 hours. Respiratory status is stable. The patient is currently on room air oxygen with a pulse ox of 98%. General surgery and infectious diseases are both on the case. Noted the patient does not have any significant nausea or emesis and she is feeling well. The white cell count is 16.1 with a hemoglobin 9.7 and a platelet count of 2 8. BUN 50 with a creatinine of 0.4. Objective - Vital Signs Vital signs: Vital Signs Temp 98.2 F 04/19/24 08:10 Pulse 67 04/19/24 11:46 Resp 17 04/19/24 11:46 BP 132/78 04/19/24 11:46 Pulse Ox 97 04/19/24 11:46 FiO2 40 04/14/24 16:00 Intake & Output 04/18/24 04/19/24 04/19/24 18:59 06:59 18:59 Intake Total 240 240 Output Total 1000 700 Balance -760 -700 240 Weight 41 kg 41 kg Intake: Oral 240 240 Output: Urine 1000 700 Other: Voiding Method Indwelling Catheter Indwelling Catheter Indwelling Catheter ABP, PAP, CO, CI - Last Documented Arterial Blood Pressure 122/51 - Exam No acute distress, oriented 3. Currently on room air. HEENT examination is grossly unremarkable. Mucous membranes are moist. No oral lesions. Neck supple. Full range of motion. No adenopathy thyromegaly or neck vein distention. Cardiovascular examination reveals regular rhythm rate. S1-S2 normal. No S3 or S4. No discernible murmur noted. Lungs reveal mostly clear breath sounds. Minimal scattered rhonchi. No wheezes or crackles. Breath sounds equal bilaterally. Abdomen with occasional bowel sounds. Colostomy is noted. The colostomy is functioning the surgical wound site over the mid abdomen is dry clean and intact. Eva are still in place. Extremities are intact. No cyanosis clubbing positive +1-2 edema in all 4 extremities mainly in the lower extremities bilaterally. Skin is without rash or lesion. Neurologic examination is brief but nonfocal. - Labs CBC & Chem 7: 04/19/24 06:23 04/19/24 06:23 Labs: Abnormal Lab Results - Last 24 Hours (Table) 04/19/24 04/19/24 04/19/24 Range/Units 06:23 06:23 11:09 WBC 16.1 H (3.8-10.6) k/uL RBC 3.18 L (3.80-5.40) m/uL Hgb 9.7 L (11.4-16.0) gm/dL Hct 29.3 L (34.0-46.0) % Neutrophils # 14.4 H (1.3-7.7) k/uL Lymphocytes # 0.9 L (1.0-4.8) k/uL Sodium 134 L (137-145) mmol/L Creatinine 0.44 L (0.52-1.04) mg/dL POC Glucose (mg/dL) 148 H (70-110) mg/dL Calcium 8.0 L (8.4-10.2) mg/dL Assessment and Plan Plan: Postoperative day #9, status post exploratory laparotomy, sigmoid colon resection with end colostomy. Surgery was done for pneumoperitoneum and the patient was found to have a perforated sigmoid diverticulitis status post sigmoid colectomy and end colostomy. Patient is tolerating diet. Colostomy is functional. Surgical wound site dry clean and intact. A follow-up CAT scan of the abdomen and pelvis from 04/18/2024 showed Fluids collection/organized fluid versus abscess measuring 4.1 cm in the left pelvic area concerning for abscess. Additional organized fluid collection in the perihepatic region was also seen. Interventional radiology was consulted for possible drainage. General surgery is on the case. Infectious disease on the case. The patient remains on a combination of Eraxis and cefepime. Diffuse anasarca secondary to hypoproteinemia Bilateral pleural effusion Acute hypoxic respiratory failure, improved and the patient is currently on room air oxygen Paroxysmal atrial fibrillation, maintained on amiodarone and metoprolol. The patient is currently in normal sinus mechanism. Hypertension. Pneumoperitoneum, a result of the exploratory laparotomy. Acute hypoxemic respiratory failure, resolved. Patient is currently on room air oxygen Abdominal sepsis, resolved. Remains on IV cefepime and blood cultures negative Lactic acidosis, resolved. History of metastatic rectal carcinoma. History of hypertrophic obstructive cardiomyopathy. Hyperproteinemia Lower extremity edema Plan: Continue using incentive spirometer Continue IV cefepime and Eraxis Advance diet as tolerated Interventional radiologist were consulted regarding the possibility of drainage of the pelvic fluid Surgical wound site is dry clean and intact Colostomy is functional G continue Lasix 20 mg IV every 12 hours and monitor the fluid balance Monitor serum protein and albumin levels Labs were noted, potassium needs to be replaced Continue amiodarone 200 mg p.o. twice daily and metoprolol 50 mg p.o. twice daily, anticoagulation has been held Pain control with Lenox Continue Cozaar Continue IV Protonix Will continue to follow
[2024-04-20 06:10] LABS: Glucose,Whole Blood 155 mg/dL (70-110)
[2024-04-20 08:10] LABS: Basophils % (A) 0 %; Eosinophils % (A) 0 %; HCT 30.9 % (34.0-46.0); HGB 9.9 gm/dL (11.4-16.0); Lymphocytes # (A) 0.9 k/uL (1.0-4.8); Lymphocytes % (A) 6 %; MCH 29.7 pg (25.0-35.0); MCHC 31.9 g/dL (31.0-37.0); MCV 93.1 fL (80.0-100.0); Mean Platelet Volume 7.5; Monocytes # (A) 0.9 k/uL (0-1.0); Monocytes % (A) 6 %; Neutrophils % (A) 87 %; Platelet Count 224 k/uL (150-450); RBC 3.32 m/uL (3.80-5.40); RDW 14.8 % (11.5-15.5)
[2024-04-20] MEDS: ANIDULAFUNGIN 100 MG in SODIUM CHLORIDE 0.9% 100 ML IVPB SCH (08:13)
--- NOTE | 2024-04-20 10:42 | P.PN ---
Subjective patient is a 68-year-old lady with past medical history significant for metastatic rectal cancer brought to the ER for evaluation of lower abdominal pain. Patient that she has been not been feeling well for the last few days. Patient stated that she was having lower quad abdominal pain which was generalized, nonradiating, no aggravating or leaving factors associated abdominal pain. Patient also complaining of constipation and has not had a b owel movement in a number of days. There was no complaint of fever or chills. There was complaint of nausea but no vomiting. Patient stated she recently started chemotherapy. Because of these symptoms, patient presented to the ER Initial lab work done in the ER showed WBC 7.5, hemoglobin 9.5, platelet count 335, sodium 130, potassium 3, BUN 14, creatinine 0.53, lactate 4.5 EKG done in the ER showed heart rate of 116 , no ST segment elevation or depression seen, no T-wave inversions seen. CT abdominal pelvis done showed large pneumoperitoneum, mild circumferential wall thickening of a short segment of ascending colon and proximal sigmoid colon in associated with diverticula suggest diverticulitis versus colitis Patient admitted to internal medicine service 04/11. Patient seen and examined. Patient currently intubated, opening eyes and following commands. 04/12. Patient seen examined. Patient is currently extubated. Alert, currently has NG tube in. Lab work done this morning showed WBC 9.9, hemoglobin 10.4, platelet count 190, sodium 137, potassium 3.3, BUN 18, creatinine 0.62, glucose 100. Patient went to [facility] overnight, currently on amiodarone. 04/13. Patient seen and examined. CurrentlyLaying in the chair. Still has NG tube in. Stated pain has slightly improved. Currently on IV amiodarone, heparin. 04/14. Patient seen examined. States she feels better. Patient started on clear liquid diet . Blood work done this morning showed WBC 10.2, hemoglobin 9.2, platelet count 190, sodium 137 potassium 3.7, BUN 18, creatinine 0.43. Patient currently on oral amiodarone and IV heparin 04/15. Patient seen and examined. Patient transferred out of ICU 04/16. Patient seen and examined. Blood work done this morning showed WBC 15.2, hemoglobin 10.2, sodium 136, potassium 3.6, BUN 16, creatinine 0.40. 04/17. Patient seen and examined. Complaining of nausea, poor appetite. 04/18 Patient still complains from abdominal pain about 7/ Colostomy bag in the left lower quadrant is working She ate little bit. Currently she is on regular diet She has central vertical abdominal wound with dressing in place Ritchie catheter in place 04/19 Patient awake and alert, no vomiting, she tolerates liquid diet only Abdominal pain is ongoing and does not look significant worsening Left lower quadrant colostomy bag is in place with brown stool which looks somewhat loose but not watery. Repeat CT of the abdomen and pelvis yesterday showing organized fluid collection in the left pelvis about 4.1 cm suspicious for an abscess and another 1 in the perihepatic area. I reviewed the CAT scan by myself and agree Patient continued on cefepime and Eraxis was added as well Patient also on Eliquis for A-fib 04/20 Patient is still have nonspecific GI symptoms, her abdominal pain is expected No overt nausea vomiting but she has poor appetite, patient was encouraged to eat and drink more and she agrees Colostomy bag is working with brown stool with no issues for now. Her leukocytosis improving slowly gradually down to 15,000, she kept on Eliquis Antibiotics with cefepime and Eraxis was added yesterday Objective - Vital Signs Vital signs: Vital Signs Temp 98.1 F 04/20/24 08:00 Pulse 77 04/20/24 08:00 Resp 17 04/20/24 08:00 BP 152/76 04/20/24 08:00 Pulse Ox 97 04/20/24 08:00 FiO2 40 04/14/24 16:00 Intake & Output 04/19/24 04/20/24 04/20/24 18:59 06:59 18:59 Intake Total 420 240 180 Output Total 1200 1400 Balance -780 -1160 180 Weight 41 kg 41.5 kg Intake: Oral 420 240 180 Output: Urine 1200 1400 Other: Voiding Method Indwelling Catheter Indwelling Catheter Indwelling Catheter ABP, PAP, CO, CI - Last Documented Arterial Blood Pressure 122/51 - Exam GENERAL: The patient is alert and oriented x3, not in any acute distress. Well developed, well nourished. HEENT: Pupils are round and equally reacting to light. EOMI. No scleral icterus. No conjunctival pallor. Normocephalic, atraumatic. No pharyngeal erythema. No thyromegaly. CARDIOVASCULAR: S1 and S2 present. No murmurs, rubs, or gallops. PULMONARY: Chest is clear to auscultation, no wheezing , no crackles. ABDOMEN: Soft, nontender, nondistended, normoactive bowel sounds. No palpable organomegaly. MUSCULOSKELETAL: No joint swelling or deformity. EXTREMITIES: No cyanosis, clubbing, or pedal edema. NEUROLOGICAL: Gross neurological examination did not reveal any focal deficits. SKIN: No rashes. no petechiae. - Labs CBC & Chem 7: 04/20/24 06:24 04/19/24 06:23 Labs: Abnormal Lab Results - Last 24 Hours (Table) 04/19/24 04/19/24 04/19/24 Range/Units 11:09 16:16 20:13 WBC (3.8-10.6) k/uL RBC (3.80-5.40) m/uL Hgb (11.4-16.0) gm/dL Hct (34.0-46.0) % Neutrophils # (1.3-7.7) k/uL Lymphocytes # (1.0-4.8) k/uL POC Glucose (mg/dL) 148 H 138 H 139 H (70-110) mg/dL 04/20/24 04/20/24 Range/Units 06:08 06:24 WBC 15.0 H (3.8-10.6) k/uL RBC 3.32 L (3.80-5.40) m/uL Hgb 9.9 L (11.4-16.0) gm/dL Hct 30.9 L (34.0-46.0) % Neutrophils # 13.0 H (1.3-7.7) k/uL Lymphocytes # 0.9 L (1.0-4.8) k/uL POC Glucose (mg/dL) 155 H (70-110) mg/dL Assessment and Plan Assessment: Pneumoperitoneum, status post exploratory laparotomy and sigmoid colon resection with end colostomy Repeat CAT scan on 04/18 showing possible left pelvic abscess 4.1 cm and smaller perihepatic abscess Metastatic rectal cancer Who comes with mitral regurgitation Intra-abdominal infection and sepsis A-fib with RVR Acute hypoxic respiratory failure Acute sigmoid colon perforation Acute diverticulitis Hyponatremia Hypokalemia Lactic acidosis History of rectal cancer Plan: Continue IV cefepime, and Eraxis Currently on Eliquis and amiodarone Aggressive bronchopulmonary hygiene Was on clear liquid diet, diet advanced per surgery to regular diet. However patient still taking liquid diet currently Pulmonology following Surgery following ID following Labs and medication were reviewed.. Continue same treatment. Continue with symptomatic treatment. Resume home medication. Monitor labs and vitals. DVT and GI prophylaxis. Further recommendations as per clinical course of the patient DVT prophylaxis: S Eliquis GI Prophylaxis: PPI PT/OT: Pending Prognosis is guarded
--- NOTE | 2024-04-20 11:26 | P.PN ---
Subjective HISTORY OF PRESENT ILLNESS: The patient is a 68-year-old female diagnosed recently with metastatic rectal carcinoma, started chemotherapy, presented with pneumoperitoneum and underwent colon resection and colostomy. She had episode of atrial fibrillation postoperatively. She is back in sinus mechanism. She is sitting up in the chair, has abdominal discomfort but no chest discomfort. She continues to be in sinus mechanism on Cleviprex for hypertension. She has no evidence of ventricular ectopic activity. She has been changed to oral amiodarone but continues to be on IV heparin. She continues to have an NG tube with no significant discharge from her colostomy. She had an echocardiogram done that showed a preserved systolic function with hypertrophic obstructive cardiomyopathy and MARISSA with moderate to severe mitral regurgitation. She has the diagnosis of hypertrophic cardiomyopathy in the past. April 15: The patient feels better overall, sitting up in the chair, continues to be in sinus mechanism. Her NG tube was removed. She denies any chest discomfort, dizziness or palpitations. She has no nausea. Hemodynamically she is stable on no vasopressors. She continues to be on IV heparin but she is able to take oral medications at this time. 04/16/2024 Patient examined this morning at the bedside. Patient currently denies chest pain or pressure. She reports improvement in her shortness of breath. She is tolerating clear liquid diet. Vital signs are stable. Blood pressure stable in the [id number]. 04/17/2023 Patient examined this morning the bedside. Patient currently denies chest pain or pressure. She denies shortness of breath. Patient's blood pressures overnight elevated with a systolic in the 160s. She continues to have edema in her extremities, worse in her arms. She is tolerating oral diet. Telemetry reveals sinus mechanism. 04/18/24 Patient examined this morning. She denies chest pain or pressure. Denies SOB. BP remains somewhat elevated. Telemetry reveals sinus mechanism. 04/19/2024 Patient examined this morning at the bedside. Patient denies chest pain or pressure. She denies shortness of breath. Telemetry reveals sinus mechanism. Blood pressures remain elevated overnight with a systolic in the [id number]. General surgery is following. Patient has fluid collections noted on CT scan that is concerning for developing abscess. IR is planning for drain placement. 04/20/2024 Patient examined this morning at the bedside. Patient denies chest pain or pressure. She denies shortness of breath. Telemetry reveals sinus mechanism. Vital signs are stable. PHYSICAL EXAM: VITAL SIGNS: Reviewed. GENERAL: Well-developed in no acute distress. NECK: Supple. No JVD or thyromegaly LUNGS: Respirations even and unlabored. Lungs essentially clear to auscultation bilaterally. HEART: Regular rate and rhythm. S1 and S2 heard. Systolic murmur noted EXTREMITIES: Normal range of motion. No clubbing or cyanosis. Peripheral pulses intact. Bilateral upper and lower extremity edema ASSESSMENT: Pneumoperitoneum, status post colon resection and colostomy Fluid collections noted on CT scan, concerning for developing abscess Metastatic rectal carcinoma Paroxysmal atrial fibrillation, maintaining sinus mechanism Hypertrophic cardiomyopathy with mitral regurgitation Hypertension Hypoalbuminemia PLAN: Continue current cardiac medications Continue current dose of Losartan Continue to monitor blood pressure Recommend elevating extremities on pillows Recommend increased protein intake. Albumin low at 1.7 Encourage use of incentive spirometer Continue telemetry monitoring Increase activity as tolerated. Patient should be up into the chair daily. IR consulted for drain placement. Scheduled for 04/22/24. Eliquis placed on hold. Resume post procedure We will sign off. Please reconsult if needed. Nurse practitioner note has been reviewed by physician. Signing provider agrees with the documented findings, assessment, and plan of care documented by DOOR MANAGER as a scribe. Objective - Vital Signs Vital signs: Vital Signs Temp 98.1 F 04/20/24 08:00 Pulse 77 04/20/24 08:00 Resp 17 04/20/24 08:00 BP 152/76 04/20/24 08:00 Pulse Ox 97 04/20/24 08:00 FiO2 40 04/14/24 16:00 Intake & Output 04/19/24 04/20/24 04/20/24 18:59 06:59 18:59 Intake Total 420 240 180 Output Total 1200 1400 Balance -780 -1160 180 Weight 41 kg 41.5 kg Intake: Oral 420 240 180 Output: Urine 1200 1400 Other: Voiding Method Indwelling Catheter Indwelling Catheter Indwelling Catheter ABP, PAP, CO, CI - Last Documented Arterial Blood Pressure 122/51 - Labs CBC & Chem 7: 04/20/24 06:24 04/19/24 06:23 Labs: Abnormal Lab Results - Last 24 Hours (Table) 04/19/24 04/19/24 04/19/24 Range/Units 11:09 16:16 20:13 WBC (3.8-10.6) k/uL RBC (3.80-5.40) m/uL Hgb (11.4-16.0) gm/dL Hct (34.0-46.0) % Neutrophils # (1.3-7.7) k/uL Lymphocytes # (1.0-4.8) k/uL POC Glucose (mg/dL) 148 H 138 H 139 H (70-110) mg/dL 04/20/24 04/20/24 Range/Units 06:08 06:24 WBC 15.0 H (3.8-10.6) k/uL RBC 3.32 L (3.80-5.40) m/uL Hgb 9.9 L (11.4-16.0) gm/dL Hct 30.9 L (34.0-46.0) % Neutrophils # 13.0 H (1.3-7.7) k/uL Lymphocytes # 0.9 L (1.0-4.8) k/uL POC Glucose (mg/dL) 155 H (70-110) mg/dL
--- NOTE | 2024-04-20 12:27 | P.PN ---
Subjective Progress Note Date: 04/20/24 SURGICAL PROGRESS NOTE CHIEF COMPLAINT: Perforated diverticulitis HISTORY OF PRESENT ILLNESS: Patient is postop day #10 status post exploratory laparotomy with sigmoid colectomy with end colostomy for perforated diverticulitis of the sigmoid colon. CT scan abdomen pelvis had reported 2 areas of fluid collection. IR service is planning on draining the fluid collection by the liver on Thursday. Patient needs to be off of the Eliquis for 3 days prior to the drain placement. The fluid collection that near the pelvis IR service felt it was difficult to reach and will not be placing a drain there. Patient does complain of abdominal pain. Her ostomy is functioning. Nursing staff reporting less stool output today. Patient's appetite has been poor. She denies any vomiting. Patient continues to have drainage from the incision site. Patient also has a subcutaneous abscess on the chest wall that has been there for years. Afebrile. WBC is down from 16-15 PHYSICAL EXAM: VITAL SIGNS: Reviewed. GENERAL: Well-developed in no acute distress. CHEST: Subcutaneous abscess on the chest wall. About 2 cm in length. Able to express thick purulent drainage. ABDOMEN: Soft. Nondistended. Ostomy on the left with small amount of stool present. Stoma beefy red. Midline incision with 2 areas of purulent drainage. No erythema. NEUROLOGIC: Alert and oriented. Cranial nerves II through XII grossly intact. ASSESSMENT: 1. Perforated diverticulitis 2. Fluid collections noted on CT scan concerning for developing abscesses 3. Subcutaneous chest wall abscess 4. Severe protein calorie malnutrition PLAN: -Interventional radiology is planning to place drain on Thursday for fluid collection that is located near the liver -Midline incision cleaned with chlorhexidine wipe. Midline incision 1 staple removed in the middle of the incision and another staple removed more distal of the incision. Purulent drainage was expressed. Culture was obtained of the drainage -Subcutaneous abscess on chest wall able to express purulent drainage. Area was cleaned with chlorhexidine wipe. Will have patient apply warm compresses. -Continue antibiotics per ID service -Continue regular diet -Continue protein supplement -Encourage patient to increase activity level -Continue pain management -Encourage incentive spirometer use -Eliquis currently on hold for IR procedure Physician Boiler Tube Reamer note has been reviewed by physician. Signing provider agrees with the documented findings, assessment, and plan of care. Attestation Patient seen and examined at bedside. Status post Christensen's procedure secondary to perforated diverticulitis. She has developed 2 areas of abscess within the abdomen and having some purulent drainage from the incision site. 2 skin ryan were removed for drainage of subcutaneous purulent drainage. As patient is on Eliquis, recommendation from interventional radiology is to hold off on drain placement as anticoagulation is held for 2 days. Continue with IV antibio tics. Continue diet. Continue to increase activity as tolerated by patient. Lexie Harden DO Objective - Vital Signs Vital signs: Vital Signs Temp 98.1 F 04/20/24 08:00 Pulse 77 04/20/24 08:00 Resp 17 04/20/24 08:00 BP 152/76 04/20/24 08:00 Pulse Ox 97 04/20/24 08:00 FiO2 40 04/14/24 16:00 Intake & Output 04/19/24 04/20/24 04/20/24 18:59 06:59 18:59 Intake Total 420 240 180 Output Total 1200 1400 Balance -780 -1160 180 Weight 41 kg 41.5 kg Intake: Oral 420 240 180 Output: Urine 1200 1400 Other: Voiding Method Indwelling Catheter Indwelling Catheter Indwelling Catheter ABP, PAP, CO, CI - Last Documented Arterial Blood Pressure 122/51 - Labs CBC & Chem 7: 04/20/24 06:24 04/19/24 06:23 Labs: Abnormal Lab Results - Last 24 Hours (Table) 04/19/24 04/19/24 04/20/24 Range/Units 16:16 20:13 06:08 WBC (3.8-10.6) k/uL RBC (3.80-5.40) m/uL Hgb (11.4-16.0) gm/dL Hct (34.0-46.0) % Neutrophils # (1.3-7.7) k/uL Lymphocytes # (1.0-4.8) k/uL POC Glucose (mg/dL) 138 H 139 H 155 H (70-110) mg/dL 04/20/24 Range/Units 06:24 WBC 15.0 H (3.8-10.6) k/uL RBC 3.32 L (3.80-5.40) m/uL Hgb 9.9 L (11.4-16.0) gm/dL Hct 30.9 L (34.0-46.0) % Neutrophils # 13.0 H (1.3-7.7) k/uL Lymphocytes # 0.9 L (1.0-4.8) k/uL POC Glucose (mg/dL) (70-110) mg/dL
--- NOTE | 2024-04-20 13:31 | P.PN ---
Subjective Progress Note Date: 04/20/24 This is a 68-year-old female with history of metastatic rectal cancer presented to the ER 04/10 mostly with abdominal pain. Patient has been receiving chemotherapy for her rectal cancer, her first treatment was March 29. Patient has not been feeling well since March 29, presented to the ER with f ew days history of abdominal pain, lower abdominal pain. Patient had some nausea, no vomiting. No bowel movement for the few days, patient noted no fever, no chills, CT of the abdomen pelvis showed pneumoperitoneum and possible perforation of the ascending colon. Patient underwent exploratory laparotomy sigmoid colon resection with end colostomy. Patient was found to have perforated diverticulitis of the sigmoid colon. Postoperatively, patient was sent to the ICU, intubated mechanically ventilated, she is presently on assist- control rate of 16, tidal volume increased to 350, FiO2 100% and PEEP of 5. ABG on FiO2 of 100% showed a pO2 of 392, pCO2 of 53 pH of 7.35, hence vent adjustment was made and she was on FiO2 of 40%, rate of 16, and tidal volume of 350. Patient is hemodynamically stable, not requiring any pressors, she is however requiring fluids for relatively marginal blood pressure and tachycardia. Her electrolytes showed low potassium of 3.0 that is being addressed accor dingly bicarb is 27 renal profile is normal WBC count is 1.4 hemoglobin 13.8. Her WBC count on admission was 7.5 dropped down significantly to 1.4. Antibiotics miranda, patient received cefepime, she is also on metronidazole, patient could not be placed on Zosyn mostly because of her penicillin allergy. On her initial presentation she received Levaquin she also received a Rocephin. 04/11/2024 patient seen and examined at bedside. Patient still in the ICU intubated, sedated and mechanically ventilated. Ventilator settings are assist- control with a rate of 16, tidal volume 350, PEEP of 5 with FiO2 40%. No acute events overnight. Currently drips are normal saline 0.9% with a rate of 130 cc /h, propofol with a rate of 40 and Levophed of 0.02 mcg/kg/min. Chest x-ray shows atelectasis at the right lung base with ET tube, NG tube, and central venous catheters in place. ABG Shows CO2 22, CO2 41 and pH of 7.36. Other labs today show WBC 4.3, hemoglobin 11.5, platelet count 1 59,000, sodium 134, potassium 4.2 BUN 16, creatinine 0.58 glucose 102, calcium 7.6, phosphorus 3, magnesium 2.1 04/12/2024 patient seen and examined at bedside. Patient still in the ICU and was extubated around 11 AM yesterday at 04/11. Overnight, patient had an episode of A-fib with rapid ventricular response with associated hypotension. Currently on IV fluids normal saline at 100 cc, amiodarone IV at 0.5 mg/min, heparin drip at 12 units/kg/h, and Cardizem drip at 1 mg/h. Chest x-ray today shows mild atelectatic type changes at the left base with central venous catheter, NG tube in place. Labs today showed WBC 9.9 hemoglobin 10.4 platelet count 190,000 PTT 36.1 PTT 12.1 INR 1.1 sodium 137 potassium 3.3 chloride 112 bicarb 21 BUN 18 creatinine 0.62 glucose 100 calcium 8.4 magnesium 2.1 04/13/2024 patient seen and examined at bedside. No acute events overnight. Postop exploratory laparotomy and sigmoid colon resection with end colostomy day 3. Currently on IV fluids normal saline at 100 cc, amiodarone IV at 0.5 mg/min and heparin drip at 12 units/kg/h. On day 4 of metronidazole IV and cefepime IV. Chest x-ray showed interval development of some mild infiltrate at the right base which is likely atelectasis with small left pleural effusion and NG tube and central venous catheter and port catheter seen and in place. Labs today show WBC 12.4, hemoglobin 10.1, platelet count 1 93,000 PTT 49.9, sodium 136, potassium 4, bicarb 18, BUN 19, creatinine 0.46, glucose 90, calcium 8.7. TSH less than 0.0 15 Free T41.72. Echocardiogram showed hyperdynamic LV, EF 60%, concerns of concentric LVH with mid ventricular obstruction with elevated gradients with peak gradients more than 100 mmHg, systolic anterior motion of mitral valve with moderate MR. 04/14/2024 patient seen and examined at bedside. No acute events overnight. Postop exploratory laparotomy and sigmoid colon resection with end colostomy day 4. Currently on IV fluids lactated Ringer's at 50 cc/h, and heparin 12 units/k g/h. On day 5, metronidazole IV and cefepime IV. Labs today show WBC 10.2, hemoglobin 10.2, platelet count 190,000 PTT 44.4, sodium 136, potassium 3.7, chloride 109, bicarb 21, BUN 18, creatinine 0.43, glucose 71, calcium 8.6 04/15/2024 patient seen and examined at bedside. No acute events overnight. NG tube removed. Patient started on clear liquid diet yesterday. Postop exploratory laparotomy and sigmoid colon resection with end colostomy day 5. Currently on IV fluids lactated Ringer's at 50 cc/h. Labs today show WBC 10.2, hemoglobin 10.5, platelet count 1 75,000, PTT 53.7, sodium 135, potassium 3.7, bicarb 23, chloride 107, BUN 18, creatinine 0.39, glucose 106, calcium 8.5 Progress note dated April 16, 2024. This is a 68-year-old female with history of postoperative day #6, status post exploratory laparotomy and sigmoid colon resection, with end colostomy. The patient was transferred out of the intensive care unit. The patient is doing very well. She is seen today in room 354. She is on room air. She is not receiving any IV fluids. NG tube has been removed. Current labs include a white count 15.2, hemoglobin 10.2, hematocrit 30.5, and a normal platelet count. Sodium 136, potassium 3.6, chlorides 107, CO2 26, BUN 16, creatinine 0.4. Glucose is 110. Calcium is 8.4. Progress note dated April 17, 2024. 68-year-old female with a history of postoperative day #7, status post exploratory laparotomy sigmoid colon resection with end colostomy. The patient was transferred out of the intensive care unit, a few days ago. Clinically she is doing well. She is currently on room air. No IV fluids. NG tube has been removed. She is taking nutrition by mouth. She has no specific complaints today. The only blood work today is a glucose of 123. On 04/18/2024, the patient is being seen for a follow-up. The patient is postop day #8 following a expiratory laparotomy and sigmoid resection with end colostomy. Surgical wound site is dry clean and intact. Ryan are in place. Colostomy site is functional. No significant nausea vomiting or abdominal pain. The patient is tolerating diet at this point in time. She has increased edema in all 4 extremities. She is currently on room air oxygen. The patient denies having any significant shortness of breath. She is on room air oxygen with a pulse ox of 97%. The white cell count of 18 with a hemoglobin of 10 and a platelet count of 182. BUN is 13 with a creatinine of 0.4 and a sodium levels at 133 and a potassium level is at 3.1. Noted the patient also has history of metastatic rectal cancer being treated with chemotherapy on outpatient basis. She is status post sigmoid resection for a perforated diverticulitis of the sigmoid colon. She is also post respiratory failure requiring intubation mechanical ventilation. Antibiotic coverage includes IV cefepime for now. She is on [place] for pain control. Blood cultures are negative. She is awake and alert and she is also communicating. Complaining of extensive weakness and profound edema in all 4 extremities. She is known to have hypoproteinemia and hypoalbuminemia. She is also on anticoagulation with Eliquis 5 mg p.o. twice daily regarding atrial fibrillation. On 04/19/2024 patient is being seen for a follow-up. Patient is postop day #9. The patient underwent a sigmoid resection and end colostomy. Colostomy is still functional and the patient is tolerating her diet. The patient was complaining of some ongoing nausea and based on that, a CAT scan of the abdomen and pelvis was obtained on 04/18/2024 and the CAT scan showed postsurgical changes in the left lower quadrant ostomy. There was trace pneumoperitoneum and small volume ascites throughout the abdomen and pelvis. There was also an organized fluid collection in the left pelvic area measuring up to 4.1 cm in size and this was concerning for an underlying abscess formation. Additional organized fluid collection in the perihepatic region was also seen concerning for abscess and the patient continued to have diffuse anasarca with moderate right-sided pleural effusion and small left-sided pleural effusion. General surgery is on the case and interventional radiology was consulted for possible drainage of the fluid collection. Meanwhile, the patient remains on a combination of cefepime and Eraxis. The patient was reporting significant edema in all 4 extremities and the patient was given Lasix and the patient is currently in negative fluid balance of 1.4 L over the past 24 hours. Continues to have edema and based on that we will maintain the patient on Lasix 20 mg IV every 12 hours. Respiratory status is stable. The patient is currently on room air oxygen with a pulse ox of 98%. General surgery and infectious diseases are both on the case. Noted the patient does not have any significant nausea or emesis and she is feeling well. The white cell count is 16.1 with a hemoglobin 9.7 and a platelet count of 2 8. BUN 50 with a creatinine of 0.4. 04/20/2024, the patient is awake and alert and communicating. She is on room air oxygen. Unfortunately, intra-abdominal abscesses were notified and the patient is awaiting interventional radiology to drain the intra-abdominal abscesses. Meanwhile, the surgical wound was inspected today and there is leakage of purulent material in the mid incision and based on that 2 of the ryna were removed. The drainage is minimal yet is present. At the same time, the patient has a function ostomy. Another pustular collection was noted over the anterior chest area. The patient is afebrile. Hemodynamically stable. White cell count of 15 with a hemoglobin of 9.9 and a platelet count of 224. Antibiotic coverage remains unchanged and the patient remains on a combination of cefepime and Eraxis. On a separate note, the patient was being diuresed with IV Lasix. The patient remains on Lasix 20 mg IV every 12 hours. She had diffuse anasarca and third spacing and the patient remains in negative fluid balance of 1.9 L over the past 24 hours. The electrolytes are being monitored. The patient is postop day #10 following expect laparotomy and sigmoid colectomy and colostomy for perforated diverticulitis. As mentioned, CAT scan of the abdomen and pelvis showed 2 areas of fluid collection, possibly an abscess formation.. Objective - Vital Signs Vital signs: Vital Signs Temp 98.1 F 04/20/24 08:00 Pulse 77 04/20/24 08:00 Resp 17 04/20/24 08:00 BP 152/76 04/20/24 08:00 Pulse Ox 97 04/20/24 08:00 FiO2 40 04/14/24 16:00 Intake & Output 04/19/24 04/20/24 04/20/24 18:59 06:59 18:59 Intake Total 420 240 180 Output Total 1200 1400 Balance -780 -1160 180 Weight 41 kg 41.5 kg Intake: Oral 420 240 180 Output: Urine 1200 1400 Other: Voiding Method Indwelling Catheter Indwelling Catheter Indwelling Catheter ABP, PAP, CO, CI - Last Documented Arterial Blood Pressure 122/51 - Exam No acute distress, oriented 3. Currently on room air. HEENT examination is grossly unremarkable. Mucous membranes are moist. No oral lesions. Neck supple. Full range of motion. No adenopathy thyromegaly or neck vein distention. Cardiovascular examination reveals regular rhythm rate. S1-S2 normal. No S3 or S4. No discernible murmur noted. Subcutaneous abscess was noted over the anterior chest measuring around 2 cm in size that needs to be further incised and drained. Lungs reveal mostly clear breath sounds. Minimal scattered rhonchi. No wheezes or crackles. Breath sounds equal bilaterally. Abdomen with occasional bowel sounds. Colostomy is noted. The colostomy is functioning the surgical wound site over the mid abdomen is showing some purulent drainage at the level of the mid incision and 2 of the ryan were removed. The rest of ryan are still in place. Extremities are intact. No cyanosis clubbing positive +1-2 edema in all 4 extremities mainly in the lower extremities bilaterally. Skin is without rash or lesion. Neurologic examination is brief but nonfocal. - Labs CBC & Chem 7: 04/20/24 06:24 04/19/24 06:23 Labs: Abnormal Lab Results - Last 24 Hours (Table) 04/19/24 04/19/24 04/20/24 Range/Units 16:16 20:13 06:08 WBC (3.8-10.6) k/uL RBC (3.80-5.40) m/uL Hgb (11.4-16.0) gm/dL Hct (34.0-46.0) % Neutrophils # (1.3-7.7) k/uL Lymphocytes # (1.0-4.8) k/uL POC Glucose (mg/dL) 138 H 139 H 155 H (70-110) mg/dL 04/20/24 Range/Units 06:24 WBC 15.0 H (3.8-10.6) k/uL RBC 3.32 L (3.80-5.40) m/uL Hgb 9.9 L (11.4-16.0) gm/dL Hct 30.9 L (34.0-46.0) % Neutrophils # 13.0 H (1.3-7.7) k/uL Lymphocytes # 0.9 L (1.0-4.8) k/uL POC Glucose (mg/dL) (70-110) mg/dL Assessment and Plan Plan: Postoperative day # 10 status post exploratory laparotomy, sigmoid colon resection with end colostomy. Surgery was done for pneumoperitoneum and the patient was found to have a perforated sigmoid diverticulitis status post sigmoid colectomy and end colostomy. Patient is tolerating diet. Colostomy is functional. Surgical wound site dry clean and intact. A follow-up CAT scan of the abdomen and pelvis from 04/18/2024 showed Fluids collection/organized fluid versus abscess measuring 4.1 cm in the left pelvic area concerning for abscess. Additional organized fluid collection in the perihepatic region was also seen. Interventional radiology was consulted for possible drainage. General surgery is on the case. Infectious disease on the case. The patient remains on a combination of Eraxis and cefepime. The patient is having purulent drainage from the mid incision and the 2 of the ryan were removed. Cultures were also sent. Anterior chest subcutaneous abscess that needs to be incised and drained Diffuse anasarca secondary to hypoproteinemia and hypoalbuminemia and the patient's albumin level is at 1.7 Bilateral pleural effusion Acute hypoxic respiratory failure, improved and the patient is currently on room air oxygen Paroxysmal atrial fibrillation, maintained on amiodarone and metoprolol. The patient is currently in normal sinus mechanism. Hypertension. Pneumoperitoneum, a result of the exploratory laparotomy. Acute hypoxemic respiratory failure, resolved. Patient is currently on room air oxygen Abdominal sepsis, resolved. Remains on IV cefepime and blood cultures negative Lactic acidosis, resolved. History of metastatic rectal carcinoma. History of hypertrophic obstructive cardiomyopathy. Hyperproteinemia Lower extremity edema Plan: Continue using incentive spirometer Continue IV cefepime and Eraxis Advance diet as tolerated Interventional radiologist were consulted regarding the possibility of drainage of the pelvic fluid, this is to be done on 04/22/2024 r Recommend surgical drainage of the subcutaneous anterior chest wall abscess and cultures Surgical wound site is showing some purulent drainage. Appropriate cultures we re obtained and ryan were removed Colostomy is functional Discontinue Lasix Monitor serum protein and albumin levels Labs were noted, potassium needs to be replaced Continue amiodarone 200 mg p.o. twice daily and metoprolol 50 mg p.o. twice daily, anticoagulation has been held Pain control with [place] Continue Cozaar Continue IV Protonix Will continue to follow
--- NOTE | 2024-04-21 07:00 | P.PN ---
Subjective patient is a 68-year-old lady with past medical history significant for metastatic rectal cancer brought to the ER for evaluation of lower abdominal pain. Patient that she has been not been feeling well for the last few days. Patient stated that she was having lower quad abdominal pain which was generalized, nonradiating, no aggravating or leaving factors associated abdominal pain. Patient also complaining of constipation and has not had a b owel movement in a number of days. There was no complaint of fever or chills. There was complaint of nausea but no vomiting. Patient stated she recently started chemotherapy. Because of these symptoms, patient presented to the ER Initial lab work done in the ER showed WBC 7.5, hemoglobin 9.5, platelet count 335, sodium 130, potassium 3, BUN 14, creatinine 0.53, lactate 4.5 EKG done in the ER showed heart rate of 116 , no ST segment elevation or depression seen, no T-wave inversions seen. CT abdominal pelvis done showed large pneumoperitoneum, mild circumferential wall thickening of a short segment of ascending colon and proximal sigmoid colon in associated with diverticula suggest diverticulitis versus colitis Patient admitted to internal medicine service 04/11. Patient seen and examined. Patient currently intubated, opening eyes and following commands. 04/12. Patient seen examined. Patient is currently extubated. Alert, currently has NG tube in. Lab work done this morning showed WBC 9.9, hemoglobin 10.4, platelet count 190, sodium 137, potassium 3.3, BUN 18, creatinine 0.62, glucose 100. Patient went to [facility] overnight, currently on amiodarone. 04/13. Patient seen and examined. CurrentlyLaying in the chair. Still has NG tube in. Stated pain has slightly improved. Currently on IV amiodarone, heparin. 04/14. Patient seen examined. States she feels better. Patient started on clear liquid diet . Blood work done this morning showed WBC 10.2, hemoglobin 9.2, platelet count 190, sodium 137 potassium 3.7, BUN 18, creatinine 0.43. Patient currently on oral amiodarone and IV heparin 04/15. Patient seen and examined. Patient transferred out of ICU 04/16. Patient seen and examined. Blood work done this morning showed WBC 15.2, hemoglobin 10.2, sodium 136, potassium 3.6, BUN 16, creatinine 0.40. 04/17. Patient seen and examined. Complaining of nausea, poor appetite. 04/18 Patient still complains from abdominal pain about 7/10 Colostomy bag in the left lower quadrant is working She ate little bit. Currently she is on regular diet She has central vertical abdominal wound with dressing in place Ritchie catheter in place 04/19 Patient awake and alert, no vomiting, she tolerates liquid diet only Abdominal pain is ongoing and does not look significant worsening Left lower quadrant colostomy bag is in place with brown stool which looks somewhat loose but not watery. Repeat CT of the abdomen and pelvis yesterday showing organized fluid collection in the left pelvis about 4.1 cm suspicious for an abscess and another 1 in the perihepatic area. I reviewed the CAT scan by myself and agree Patient continued on cefepime and Eraxis was added as well Patient also on Eliquis for A-fib 04/20 Patient is still have nonspecific GI symptoms, her abdominal pain is expected No overt nausea vomiting but she has poor appetite, patient was encouraged to eat and drink more and she agrees Colostomy bag is working with brown stool with no issues for now. Her leukocytosis improving slowly gradually down to 15,000, she kept on Eliquis Antibiotics with cefepime and Eraxis was added yesterday 04/21 Patient is picking up on her diet and eating more and more every day Abdominal pain controlled Colostomy bag had small hard bowel movement today. Recent CAT scan showing pelvic abscess and perihepatic abscess, surgery team discussed the case with IR and plan for placement of a drain into the perihepatic abscess but not the pelvic abscess as it is small. The recommenda tion continue medical treatment for the pelvic abscess. Leukocytosis slightly trending down. Patient remains on IV cefepime and Eraxis. As per general surgery Eliquis was held for her A-fib therefore we put her on therapeutic dose of Lovenox with recommendation to hold it tonight and tomorrow till cleared by the surgeon for the procedure Objective - Vital Signs Vital signs: Vital Signs Temp 98.1 F 04/21/24 03:49 Pulse 76 04/21/24 03:49 Resp 18 04/21/24 03:49 BP 152/79 04/21/24 03:49 Pulse Ox 95 04/21/24 03:49 FiO2 40 04/14/24 16:00 Intake & Output 04/20/24 04/20/24 04/21/24 06:59 18:59 06:59 Intake Total 240 360 Output Total 1400 1300 525 Balance -4970 -940 -525 Weight 41.5 kg 58.7 kg Intake: Oral 240 360 Output: Urine 1400 1300 525 Other: Voiding Method Indwelling Catheter Indwelling Catheter Indwelling Catheter # Bowel Movements 1 ABP, PAP, CO, CI - Last Documented Arterial Blood Pressure 122/51 - Exam GENERAL: The patient is alert and oriented x3, not in any acute distress. Well developed, well nourished. HEENT: Pupils are round and equally reacting to light. EOMI. No scleral icterus. No conjunctival pallor. Normocephalic, atraumatic. No pharyngeal erythema. No thyromegaly. CARDIOVASCULAR: S1 and S2 present. No murmurs, rubs, or gallops. PULMONARY: Chest is clear to auscultation, no wheezing , no crackles. ABDOMEN: Soft, nontender, nondistended, normoactive bowel sounds. No palpable organomegaly. MUSCULOSKELETAL: No joint swelling or deformity. EXTREMITIES: No cyanosis, clubbing, or pedal edema. NEUROLOGICAL: Gross neurological examination did not reveal any focal deficits. SKIN: No rashes. no petechiae. - Labs CBC & Chem 7: 04/20/24 06:24 04/19/24 06:23 Labs: Abnormal Lab Results - Last 24 Hours (Table) 04/20/24 Range/Units 06:24 WBC 15.0 H (3.8-10.6) k/uL RBC 3.32 L (3.80-5.40) m/uL Hgb 9.9 L (11.4-16.0) gm/dL Hct 30.9 L (34.0-46.0) % Neutrophils # 13.0 H (1.3-7.7) k/uL Lymphocytes # 0.9 L (1.0-4.8) k/uL Microbiology - Last 24 Hours (Table) 04/20/24 11:30 Gram Stain - Preliminary Abdomen Assessment and Plan Assessment: Pneumoperitoneum, status post exploratory laparotomy and sigmoid colon resection with end colostomy Repeat CAT scan on 04/18 showing possible left pelvic abscess 4.1 cm and smaller perihepatic abscess Metastatic rectal cancer Who comes with mitral regurgitation Intra-abdominal infection and sepsis A-fib with RVR Acute hypoxic respiratory failure Acute sigmoid colon perforation Acute diverticulitis Hyponatremia Hypokalemia Lactic acidosis History of rectal cancer Plan: Continue IV cefepime, and Eraxis Currently on Eliquis and amiodarone Aggressive bronchopulmonary hygiene Was on clear liquid diet, diet advanced per surgery to regular diet. However patient still taking liquid diet currently Pulmonology following Surgery following ID following Labs and medication were reviewed.. Continue same treatment. Continue with symptomatic treatment. Resume home medication. Monitor labs and vitals. DVT and GI prophylaxis. Further recommendations as per clinical course of the patient DVT prophylaxis: S Eliquis is put on hold for drain placement by IR on 04/22, currently therapeutic dose of Lovenox GI Prophylaxis: PPI PT/OT: Pending Prognosis is guarded
[2024-04-21] MEDS: ENOXAPARIN 60 MG/0.6 ML SYRINGE SQ SCH (08:25)
--- NOTE | 2024-04-21 12:15 | P.PN ---
Subjective Progress Note Date: 04/21/24 SURGICAL PROGRESS NOTE CHIEF COMPLAINT: Perforated diverticulitis HISTORY OF PRESENT ILLNESS: Patient is postop day #11 status post exploratory laparotomy with sigmoid colectomy with end colostomy for perforated diverticulitis of the sigmoid colon. CT scan abdomen pelvis had reported 2 areas of fluid collection. IR service is planning on draining the fluid collection by the liver on Thursday. Eliquis remains on hold. Patient reports her pain is controlled. Denies any nausea or vomiting. She is drinking her protein drinks. She is having a small amount of stool through her ostomy. There is also been some blood in the ostomy bag. Patient has had some drainage from the incision. Nurse reports dressing from midline incision was changed once yesterday and twice during the night. Afebrile. CBC from yesterday 15. Culture result from surgical drainage pending PHYSICAL EXAM: VITAL SIGNS: Reviewed. GENERAL: Well-developed in no acute distress. CHEST: Subcutaneous abscess on the chest wall. About 2 cm in length. Able to express thick purulent drainage. ABDOMEN: Soft. Nondistended. Ostomy on the left with small amount of stool present at stoma. Stoma beefy red. There is some blood in ostomy bag. small bleeding around stoma. Midline incision with 2 areas of purulent drainage. No erythema. NEUROLOGIC: Alert and oriented. Cranial nerves II through XII grossly intact. ASSESSMENT: 1. Perforated diverticulitis 2. Fluid collections noted on CT scan concerning for developing abscesses 3. Subcutaneous chest wall abscess 4. Severe protein calorie malnutrition PLAN: -Interventional radiology is planning to place drain on Thursday for fluid collection that is located near the liver -Eliquis on hold for IR drain -Continue antibiotics per ID service -Continue regular diet -Continue protein supplement -Encourage patient to increase activity level -Continue pain management -Encourage incentive spirometer use Physician [employer] note has been reviewed by physician. Signing provider agrees with the documented findings, assessment, and plan of care. Attestation Patient seen and examined at bedside. Postoperative from exploratory laparotomy, Christensen's procedure. Purulent drainage from midline incision has decreased. Plan for interventional radiology procedure tomorrow to place drainage catheter for intra-abdominal fluid collection. Continue IV antibiotics. Continues to have output from ostomy, however somewhat decreased. Will begin patient on a bowel regimen as well. Continue to increase activity. Lexie Harden, DO Objective - Vital Signs Vital signs: Vital Signs Temp 98.1 F 04/21/24 08:20 Pulse 79 04/21/24 08:20 Resp 17 04/21/24 08:20 BP 148/71 04/21/24 08:20 Pulse Ox 98 04/21/24 08:20 FiO2 40 04/14/24 16:00 Intake & Output 04/20/24 04/21/24 04/21/24 18:59 06:59 18:59 Intake Total 360 Output Total 1300 525 Balance -940 -525 Weight 58.7 kg Intake: Oral 360 Output: Urine 1300 525 Other: Voiding Method Indwelling Catheter Indwelling Catheter Indwelling Catheter # Bowel Movements 1 ABP, PAP, CO, CI - Last Documented Arterial Blood Pressure 122/51 - Labs CBC & Chem 7: 04/20/24 06:24 04/19/24 06:23 Labs: Microbiology - Last 24 Hours (Table) 04/20/24 11:30 Gram Stain - Preliminary Abdomen Wound Culture - Preliminary Tracie albicans
[2024-04-21] MEDS: SENNOSIDES 8.6 MG TAB PO SCH (15:13)
--- NOTE | 2024-04-21 15:22 | P.PN ---
Subjective Progress Note Date: 04/20/24 Principal diagnosis: Reason for follow-up is parotitis perforated diverticulitis Patient is a 68-year-old female with a past medical history significant for hypertension osteoarthritis hypothyroidism, metastatic rectal cancer previous history of smoking presenting to the hospital for evaluation of abdominal pain, the patient CT has been suggestive of pneumoperitoneum with diagnosis of perforated sigmoid diverticulitis patient is status post laparotomy sigmoid resection and end colostomy. On today's evaluation that is 04/20/2024,the patient denies any fever or any chills, patient is breathing comfortably on room air, the patient denies chest pain shortness of breath and no significant cough, patient abdominal pain is currently controlled no nausea vomiting did have an open her colostomy. Patient white count is down to 15,000 Objective - Vital Signs Vital signs: Vital Signs Temp 98.1 F 04/20/24 08:00 Pulse 77 04/20/24 08:00 Resp 17 04/20/24 08:00 BP 152/76 04/20/24 08:00 Pulse Ox 97 04/20/24 08:00 FiO2 40 04/14/24 16:00 Intake & Output 04/19/24 04/20/24 04/20/24 18:59 06:59 18:59 Intake Total 420 240 180 Output Total 1200 1400 Balance -780 -1160 180 Weight 41 kg 41.5 kg Intake: Oral 420 240 180 Output: Urine 1200 1400 Other: Voiding Method Indwelling Catheter Indwelling Catheter Indwelling Catheter ABP, PAP, CO, CI - Last Documented Arterial Blood Pressure 122/51 - Exam GENERAL DESCRIPTION: An elderly female lying in bed in no distress RESPIRATORY SYSTEM: Unlabored breathing , decreased breath sounds at bases HEART: S1 S2 regular rate and rhythm , ABDOMEN: Soft , mild tenderness EXTREMITIES: No edema feet - Labs CBC & Chem 7: 04/20/24 06:24 04/19/24 06:23 Labs: Abnormal Lab Results - Last 24 Hours (Table) 04/19/24 04/19/24 04/20/24 Range/Units 16:16 20:13 06:08 WBC (3.8-10.6) k/uL RBC (3.80-5.40) m/uL Hgb (11.4-16.0) gm/dL Hct (34.0-46.0) % Neutrophils # (1.3-7.7) k/uL Lymphocytes # (1.0-4.8) k/uL POC Glucose (mg/dL) 138 H 139 H 155 H (70-110) mg/dL 04/20/24 Range/Units 06:24 WBC 15.0 H (3.8-10.6) k/uL RBC 3.32 L (3.80-5.40) m/uL Hgb 9.9 L (11.4-16.0) gm/dL Hct 30.9 L (34.0-46.0) % Neutrophils # 13.0 H (1.3-7.7) k/uL Lymphocytes # 0.9 L (1.0-4.8) k/uL POC Glucose (mg/dL) (70-110) mg/dL Assessment and Plan (1) Sepsis Current Visit: Yes Status: Acute Code(s): A41.9 - SEPSIS, UNSPECIFIED ORGANISM SNOMED Code(s): 74251790 (2) Peritonitis Current Visit: Yes Status: Acute Code(s): K65.9 - PERITONITIS, UNSPECIFIED SNOMED Code(s): 84898019 (3) Perforation of sigmoid colon due to diverticulitis Current Visit: Yes Status: Acute Priority: High Code(s): K57.20 - DVTRCLI OF LG INT W PERFORATION AND ABSCESS W/O BLEEDING SNOMED Code(s): 5187413857127203 Plan: 1patient presented to hospital with sepsis in this patient who did have hypotension tachycardia leukopenia meeting criteria for SIRS source is likely perforated sigmoid diverticulitis with peritonitis, we will need to cover for the enteric gram-negative both aerobes and anaerobes keeping in mind her history of metastatic rectal cancer chemo and has been out of the hospital need to cover for resistant gram-negative pathogen 2-penicillin allergy therapy limit the number of antibiotics safe to use 3-patient did have a CT with evidence of possible abdominal abscess waiting for IR drainage of the abscess, patient to continue Eraxis along with cefepime and Flagyl and monitor clinical course closely Dictation was produced using [employer] dictation software. please excuse any grammatical, word or spelling errors. Time with Patient: Less than 30
--- NOTE | 2024-04-21 15:23 | P.PN ---
Subjective Progress Note Date: 04/21/24 Principal diagnosis: Reason for follow-up is parotitis perforated diverticulitis Patient is a 68-year-old female with a past medical history significant for hypertension osteoarthritis hypothyroidism, metastatic rectal cancer previous history of smoking presenting to the hospital for evaluation of abdominal pain, the patient CT has been suggestive of pneumoperitoneum with diagnosis of perforated sigmoid diverticulitis patient is status post laparotomy sigmoid resection and end colostomy. On today's evaluation that is 04/21/2024,the patient remains to be afebrile, patient is on room air not requiring supplemental oxygen and denies any shortness of breath no chest pain or cough.Patient denies having any nausea or vomiting, no abdominal pain and no worsening output in the colostomy. Patient noticed to have a lesion on the chest which she mentioned has not been there for years he denies having any pain to it. No neurodeficit with the pain today abdominal culture growing Tracie albicans Objective - Vital Signs Vital signs: Vital Signs Temp 98.1 F 04/21/24 08:20 Pulse 79 04/21/24 08:20 Resp 17 04/21/24 08:20 BP 148/71 04/21/24 08:20 Pulse Ox 98 04/21/24 08:20 FiO2 40 04/14/24 16:00 Intake & Output 04/20/24 04/21/24 04/21/24 18:59 06:59 18:59 Intake Total 360 Output Total 1300 525 Balance -940 -525 Weight 58.7 kg Intake: Oral 360 Output: Urine 1300 525 Other: Voiding Method Indwelling Catheter Indwelling Catheter Indwelling Catheter # Bowel Movements 1 ABP, PAP, CO, CI - Last Documented Arterial Blood Pressure 122/51 - Exam GENERAL DESCRIPTION: An elderly female lying in bed in no distress RESPIRATORY SYSTEM: Unlabored breathing , decreased breath sounds at bases HEART: S1 S2 regular rate and rhythm , ABDOMEN: Soft , mild tenderness EXTREMITIES: No edema feet - Labs CBC & Chem 7: 04/20/24 06:24 04/19/24 06:23 Labs: Microbiology - Last 24 Hours (Table) 04/20/24 11:30 Gram Stain - Preliminary Abdomen Wound Culture - Preliminary Tracie albicans Assessment and Plan (1) Sepsis Current Visit: Yes Status: Acute Code(s): A41.9 - SEPSIS, UNSPECIFIED ORGANISM SNOMED Code(s): 49499181 (2) Peritonitis Current Visit: Yes Status: Acute Code(s): K65.9 - PERITONITIS, UNSPECIFIED SNOMED Code(s): 67405644 (3) Perforation of sigmoid colon due to diverticulitis Current Visit: Yes Status: Acute Priority: High Code(s): K57.20 - DVTRCLI OF LG INT W PERFORATION AND ABSCESS W/O BLEEDING SNOMED Code(s): 9138217989567951 Plan: 1patient presented to hospital with sepsis in this patient who did have hypotension tachycardia leukopenia meeting criteria for SIRS source is likely perforated sigmoid diverticulitis with peritonitis, we will need to cover for the enteric gram-negative both aerobes and anaerobes keeping in mind her history of metastatic rectal cancer chemo and has been out of the hospital need to cover for resistant gram-negative pathogen 2-penicillin allergy therapy limit the number of antibiotics safe to use 3-patient did have a CT with evidence of possible abdominal abscess waiting for IR drainage of the abscess scheduled for tomorrow, 4- patient will be treated with Eraxis, cefepime and Flagyl while waiting for cultures on the abscess fluid Dictation was produced using [employer] dictation software. please excuse any grammatical, word or spelling errors. Time with Patient: Less than 30
--- NOTE | 2024-04-21 16:55 | P.PN ---
Subjective Progress Note Date: 04/21/24 This is a 68-year-old female with history of metastatic rectal cancer presented to the ER 04/10 mostly with abdominal pain. Patient has been receiving chemotherapy for her rectal cancer, her first treatment was March 29. Patient has not been feeling well since March 29, presented to the ER with f ew days history of abdominal pain, lower abdominal pain. Patient had some nausea, no vomiting. No bowel movement for the few days, patient noted no fever, no chills, CT of the abdomen pelvis showed pneumoperitoneum and possible perforation of the ascending colon. Patient underwent exploratory laparotomy sigmoid colon resection with end colostomy. Patient was found to have perforated diverticulitis of the sigmoid colon. Postoperatively, patient was sent to the ICU, intubated mechanically ventilated, she is presently on assist- control rate of 16, tidal volume increased to 350, FiO2 100% and PEEP of 5. ABG on FiO2 of 100% showed a pO2 of 392, pCO2 of 53 pH of 7.35, hence vent adjustment was made and she was on FiO2 of 40%, rate of 16, and tidal volume of 350. Patient is hemodynamically stable, not requiring any pressors, she is however requiring fluids for relatively marginal blood pressure and tachycardia. Her electrolytes showed low potassium of 3.0 that is being addressed accor dingly bicarb is 27 renal profile is normal WBC count is 1.4 hemoglobin 13.8. Her WBC count on admission was 7.5 dropped down significantly to 1.4. Antibiotics miranda, patient received cefepime, she is also on metronidazole, patient could not be placed on Zosyn mostly because of her penicillin allergy. On her initial presentation she received Levaquin she also received a Rocephin. 04/11/2024 patient seen and examined at bedside. Patient still in the ICU intubated, sedated and mechanically ventilated. Ventilator settings are assist- control with a rate of 16, tidal volume 350, PEEP of 5 with FiO2 40%. No acute events overnight. Currently drips are normal saline 0.9% with a rate of 130 cc /h, propofol with a rate of 40 and Levophed of 0.02 mcg/kg/min. Chest x-ray shows atelectasis at the right lung base with ET tube, NG tube, and central venous catheters in place. ABG Shows CO2 22, CO2 41 and pH of 7.36. Other labs today show WBC 4.3, hemoglobin 11.5, platelet count 1 59,000, sodium 134, potassium 4.2 BUN 16, creatinine 0.58 glucose 102, calcium 7.6, phosphorus 3, magnesium 2.1 04/12/2024 patient seen and examined at bedside. Patient still in the ICU and was extubated around 11 AM yesterday at 04/11. Overnight, patient had an episode of A-fib with rapid ventricular response with associated hypotension. Currently on IV fluids normal saline at 100 cc, amiodarone IV at 0.5 mg/min, heparin drip at 12 units/kg/h, and Cardizem drip at 1 mg/h. Chest x-ray today shows mild atelectatic type changes at the left base with central venous catheter, NG tube in place. Labs today showed WBC 9.9 hemoglobin 10.4 platelet count 190,000 PTT 36.1 PTT 12.1 INR 1.1 sodium 137 potassium 3.3 chloride 112 bicarb 21 BUN 18 creatinine 0.62 glucose 100 calcium 8.4 magnesium 2.1 04/13/2024 patient seen and examined at bedside. No acute events overnight. Postop exploratory laparotomy and sigmoid colon resection with end colostomy day 3. Currently on IV fluids normal saline at 100 cc, amiodarone IV at 0.5 mg/min and heparin drip at 12 units/kg/h. On day 4 of metronidazole IV and cefepime IV. Chest x-ray showed interval development of some mild infiltrate at the right base which is likely atelectasis with small left pleural effusion and NG tube and central venous catheter and port catheter seen and in place. Labs today show WBC 12.4, hemoglobin 10.1, platelet count 1 93,000 PTT 49.9, sodium 136, potassium 4, bicarb 18, BUN 19, creatinine 0.46, glucose 90, calcium 8.7. TSH less than 0.0 15 Free T41.72. Echocardiogram showed hyperdynamic LV, EF 60%, concerns of concentric LVH with mid ventricular obstruction with elevated gradients with peak gradients more than 100 mmHg, systolic anterior motion of mitral valve with moderate MR. 04/14/2024 patient seen and examined at bedside. No acute events overnight. Postop exploratory laparotomy and sigmoid colon resection with end colostomy day 4. Currently on IV fluids lactated Ringer's at 50 cc/h, and heparin 12 units/k g/h. On day 5, metronidazole IV and cefepime IV. Labs today show WBC 10.2, hemoglobin 10.2, platelet count 190,000 PTT 44.4, sodium 136, potassium 3.7, chloride 109, bicarb 21, BUN 18, creatinine 0.43, glucose 71, calcium 8.6 04/15/2024 patient seen and examined at bedside. No acute events overnight. NG tube removed. Patient started on clear liquid diet yesterday. Postop exploratory laparotomy and sigmoid colon resection with end colostomy day 5. Currently on IV fluids lactated Ringer's at 50 cc/h. Labs today show WBC 10.2, hemoglobin 10.5, platelet count 1 75,000, PTT 53.7, sodium 135, potassium 3.7, bicarb 23, chloride 107, BUN 18, creatinine 0.39, glucose 106, calcium 8.5 Progress note dated April 16, 2024. This is a 68-year-old female with history of postoperative day #6, status post exploratory laparotomy and sigmoid colon resection, with end colostomy. The patient was transferred out of the intensive care unit. The patient is doing very well. She is seen today in room 354. She is on room air. She is not receiving any IV fluids. NG tube has been removed. Current labs include a white count 15.2, hemoglobin 10.2, hematocrit 30.5, and a normal platelet count. Sodium 136, potassium 3.6, chlorides 107, CO2 26, BUN 16, creatinine 0.4. Glucose is 110. Calcium is 8.4. Progress note dated April 17, 2024. 68-year-old female with a history of postoperative day #7, status post exploratory laparotomy sigmoid colon resection with end colostomy. The patient was transferred out of the intensive care unit, a few days ago. Clinically she is doing well. She is currently on room air. No IV fluids. NG tube has been removed. She is taking nutrition by mouth. She has no specific complaints today. The only blood work today is a glucose of 123. On 04/18/2024, the patient is being seen for a follow-up. The patient is postop day #8 following a expiratory laparotomy and sigmoid resection with end colostomy. Surgical wound site is dry clean and intact. Ryan are in place. Colostomy site is functional. No significant nausea vomiting or abdominal pain. The patient is tolerating diet at this point in time. She has increased edema in all 4 extremities. She is currently on room air oxygen. The patient denies having any significant shortness of breath. She is on room air oxygen with a pulse ox of 97%. The white cell count of 18 with a hemoglobin of 10 and a platelet count of 182. BUN is 13 with a creatinine of 0.4 and a sodium levels at 133 and a potassium level is at 3.1. Noted the patient also has history of metastatic rectal cancer being treated with chemotherapy on outpatient basis. She is status post sigmoid resection for a perforated diverticulitis of the sigmoid colon. She is also post respiratory failure requiring intubation mechanical ventilation. Antibiotic coverage includes IV cefepime for now. She is on [place] for pain control. Blood cultures are negative. She is awake and alert and she is also communicating. Complaining of extensive weakness and profound edema in all 4 extremities. She is known to have hypoproteinemia and hypoalbuminemia. She is also on anticoagulation with Eliquis 5 mg p.o. twice daily regarding atrial fibrillation. On 04/19/2024 patient is being seen for a follow-up. Patient is postop day #9. The patient underwent a sigmoid resection and end colostomy. Colostomy is still functional and the patient is tolerating her diet. The patient was complaining of some ongoing nausea and based on that, a CAT scan of the abdomen and pelvis was obtained on 04/18/2024 and the CAT scan showed postsurgical changes in the left lower quadrant ostomy. There was trace pneumoperitoneum and small volume ascites throughout the abdomen and pelvis. There was also an organized fluid collection in the left pelvic area measuring up to 4.1 cm in size and this was concerning for an underlying abscess formation. Additional organized fluid collection in the perihepatic region was also seen concerning for abscess and the patient continued to have diffuse anasarca with moderate right-sided pleural effusion and small left-sided pleural effusion. General surgery is on the case and interventional radiology was consulted for possible drainage of the fluid collection. Meanwhile, the patient remains on a combination of cefepime and Eraxis. The patient was reporting significant edema in all 4 extremities and the patient was given Lasix and the patient is currently in negative fluid balance of 1.4 L over the past 24 hours. Continues to have edema and based on that we will maintain the patient on Lasix 20 mg IV every 12 hours. Respiratory status is stable. The patient is currently on room air oxygen with a pulse ox of 98%. General surgery and infectious diseases are both on the case. Noted the patient does not have any significant nausea or emesis and she is feeling well. The white cell count is 16.1 with a hemoglobin 9.7 and a platelet count of 2 8. BUN 50 with a creatinine of 0.4. 04/20/2024, the patient is awake and alert and communicating. She is on room air oxygen. Unfortunately, intra-abdominal abscesses were notified and the patient is awaiting interventional radiology to drain the intra-abdominal abscesses. Meanwhile, the surgical wound was inspected today and there is leakage of purulent material in the mid incision and based on that 2 of the ryan were removed. The drainage is minimal yet is present. At the same time, the patient has a function ostomy. Another pustular collection was noted over the anterior chest area. The patient is afebrile. Hemodynamically stable. White cell count of 15 with a hemoglobin of 9.9 and a platelet count of 224. Antibiotic coverage remains unchanged and the patient remains on a combination of cefepime and Eraxis. On a separate note, the patient was being diuresed with IV Lasix. The patient remains on Lasix 20 mg IV every 12 hours. She had diffuse anasarca and third spacing and the patient remains in negative fluid balance of 1.9 L over the past 24 hours. The electrolytes are being monitored. The patient is postop day #10 following expect laparotomy and sigmoid colectomy and colostomy for perforated diverticulitis. As mentioned, CAT scan of the abdomen and pelvis showed 2 areas of fluid collection, possibly an abscess formation.. On 04/21/2024, the patient remains on room air oxygen. No new complaints for now. No active drainage from the surgical wound site. Colostomy is functional. The patient is awaiting a IR guided drainage of the abdominal/pelvic fluid collection/abscesses. The patient remains on IV cefepime and Eraxis. Currently off diuretics. White cell count is 15 with a hemoglobin 9.9 and a platelet count of 224. Procalcitonin level level was at 0.5. No nausea. No emesis. T he patient is postop day #11 following exploratory laparotomy and sigmoid colectomy and end colostomy for a perforated diverticulitis. She is also known to have metastatic rectal cancer. Her appetite is down. She is supplementing diet with some Ensure. No others significant events overnight. Overall condition remains stable. Objective - Vital Signs Vital signs: Vital Signs Temp 98.1 F 04/21/24 08:20 Pulse 79 04/21/24 08:20 Resp 17 04/21/24 08:20 BP 148/71 04/21/24 08:20 Pulse Ox 98 04/21/24 08:20 FiO2 40 04/14/24 16:00 Intake & Output 04/20/24 04/21/24 04/21/24 18:59 06:59 18:59 Intake Total 360 Output Total 1300 525 Balance -940 -525 Weight 58.7 kg Intake: Oral 360 Output: Urine 1300 525 Other: Voiding Method Indwelling Catheter Indwelling Catheter Indwelling Catheter # Bowel Movements 1 ABP, PAP, CO, CI - Last Documented Arterial Blood Pressure 122/51 - Exam No acute distress, oriented 3. Currently on room air. HEENT examination is grossly unremarkable. Mucous membranes are moist. No oral lesions. Neck supple. Full range of motion. No adenopathy thyromegaly or neck vein distention. Cardiovascular examination reveals regular rhythm rate. S1-S2 normal. No S3 or S4. No discernible murmur noted. Subcutaneous abscess was noted over the anterior chest measuring around 2 cm in size that needs to be further incised and drained. Lungs reveal mostly clear breath sounds. Minimal scattered rhonchi. No wheezes or crackles. Breath sounds equal bilaterally. Abdomen with occasional bowel sounds. Colostomy is noted. The colostomy is functioning the surgical wound site over the mid abdomen is showing some purulent drainage at the level of the mid incision and 2 of the ryan were removed. The rest of ryan are still in place. Extremities are intact. No cyanosis clubbing positive +1-2 edema in all 4 extremities mainly in the lower extremities bilaterally. Skin is without rash or lesion. Neurologic examination is brief but nonfocal. - Labs CBC & Chem 7: 04/20/24 06:24 04/19/24 06:23 Labs: Microbiology - Last 24 Hours (Table) 04/20/24 11:30 Gram Stain - Preliminary Abdomen Wound Culture - Preliminary Tracie albicans Assessment and Plan Plan: Postoperative day # 11 status post exploratory laparotomy, sigmoid colon resect ion with end colostomy. Surgery was done for pneumoperitoneum and the patient was found to have a perforated sigmoid diverticulitis status post sigmoid colectomy and end colostomy. Patient is tolerating diet. Colostomy is functional. Surgical wound site dry clean and intact. A follow-up CAT scan of the abdomen and pelvis from 04/18/2024 showed Fluids collection/organized fluid versus abscess measuring 4.1 cm in the left pelvic area concerning for abscess. Additional organized fluid collection in the perihepatic region was also seen. Interventional radiology was consulted for possible drainage. General surgery is on the case. Infectious disease on the case. The patient remains on a co mbination of Eraxis and cefepime. The patient is having purulent drainage from the mid incision and the 2 of the ryan were removed. Cultures were also sent And it is showing Tracie. Anterior chest subcutaneous abscess that needs to be incised and drained Diffuse anasarca secondary to hypoproteinemia and hypoalbuminemia and the patient's albumin level is at 1.7 Bilateral pleural effusion Acute hypoxic respiratory failure, improved and the patient is currently on room air oxygen Paroxysmal atrial fibrillation, maintained on amiodarone and metoprolol. The patient is currently in normal sinus mechanism. Hypertension. Pneumoperitoneum, a result of the exploratory laparotomy. Acute hypoxemic respiratory failure, resolved. Patient is currently on room air oxygen Abdominal sepsis, resolved. Remains on IV cefepime and blood cultures negative Lactic acidosis, resolved. History of metastatic rectal carcinoma. History of hypertrophic obstructive cardiomyopathy. Hyperproteinemia Lower extremity edema Plan: Continue using incentive spirometer Continue IV cefepime and Eraxis Advance diet as tolerated Interventional radiologist were consulted regarding the possibility of drainage of the pelvic fluid, this is to be done on 04/22/2024 Recommend surgical drainage of the subcutaneous anterior chest wall abscess and cultures Surgical wound site is showing some purulent drainage. Appropriate cultures were obtained and ryan were removed Colostomy is functional Monitor serum protein and albumin levels Labs were noted, potassium needs to be replaced Continue amiodarone 200 mg p.o. twice daily and metoprolol 50 mg p.o. twice daily, anticoagulation has been held Pain control with [place] Continue Cozaar Continue IV Protonix Will continue to follow
[2024-04-21 18:43] LABS: INR 1.2 (<1.2); Prothrombin Time 12.9 sec (10.0-12.5)
[2024-04-22 07:24] LABS: Basophils % (A) 0 %; Eosinophils % (A) 0 %; HCT 29.8 % (34.0-46.0); HGB 9.8 gm/dL (11.4-16.0); Lymphocytes # (A) 0.8 k/uL (1.0-4.8); Lymphocytes % (A) 8 %; MCHC 32.8 g/dL (31.0-37.0); MCV 91.5 fL (80.0-100.0); Mean Platelet Volume 8.1; Monocytes # (A) 0.8 k/uL (0-1.0); Monocytes % (A) 7 %; Neutrophils # (A) 9.3 k/uL (1.3-7.7); Neutrophils % (A) 84 %; Platelet Count 251 k/uL (150-450); RBC 3.26 m/uL (3.80-5.40); RDW 15.7 % (11.5-15.5)
[2024-04-22] MEDS: HYDROmorphone 0.5 MG/0.5 ML SYRINGE IVP STA (11:42)
--- NOTE | 2024-04-22 12:06 | P.PN ---
Subjective Progress Note Date: 04/22/24 SURGICAL PROGRESS NOTE CHIEF COMPLAINT: Perforated diverticulitis HISTORY OF PRESENT ILLNESS: Patient is postop day #12 status post exploratory laparotomy with sigmoid colectomy with end colostomy for perforated diverticulitis of the sigmoid colon. CT scan abdomen pelvis had reported 2 areas of fluid collection. Patient scheduled for drain placement by IR service today. Patient's pain is controlled. Ostomy is functioning. She denies any nausea or vomiting. She has minimal drainage from abdominal incision site. Afebrile. WBC is down from 15-11 hgb 9.8 PHYSICAL EXAM: VITAL SIGNS: Reviewed. GENERAL: Well-developed in no acute distress. CHEST: Subcutaneous abscess on the chest wall. About 2 cm in length. ABDOMEN: Soft. Nondistended. Ostomy with formed stool. Midline incision with small amount of purulent drainage noted on dressing. NEUROLOGIC: Alert and oriented. Cranial nerves II through XII grossly intact. ASSESSMENT: 1. Perforated diverticulitis 2. Fluid collections noted on CT scan concerning for developing abscesses 3. Subcutaneous chest wall abscess with drainage 4. Severe protein calorie malnutrition PLAN: -Patient scheduled for IR drain placement today -Continue antibiotics per ID service -Continue regular diet -Continue protein supplement -Encourage patient to increase activity level -Continue pain management -Encourage incentive spirometer use Physician Fan Balancer note has been reviewed by physician. Signing provider agrees with the documented findings, assessment, and plan of care. Objective - Vital Signs Vital signs: Vital Signs Temp 98.3 F 04/22/24 04:00 Pulse 79 04/22/24 08:00 Resp 16 04/22/24 08:00 BP 162/77 04/22/24 08:00 Pulse Ox 95 04/22/24 08:00 FiO2 40 04/14/24 16:00 Intake & Output 04/21/24 04/22/24 04/22/24 18:59 06:59 18:59 Intake Total 560 240 Output Total 1200 Balance 560 -960 Weight 58.7 kg Intake: Oral 560 240 Output: Urine 1200 Other: Voiding Method Indwelling Catheter Indwelling Catheter # Voids 0 # Bowel Movements 0 0 ABP, PAP, CO, CI - Last Documented Arterial Blood Pressure 122/51 - Labs CBC & Chem 7: 04/22/24 06:17 04/19/24 06:23 Labs: Abnormal Lab Results - Last 24 Hours (Table) 04/21/24 04/22/24 Range/Units 18:09 06:17 WBC 11.0 H (3.8-10.6) k/uL RBC 3.26 L (3.80-5.40) m/uL Hgb 9.8 L (11.4-16.0) gm/dL Hct 29.8 L (34.0-46.0) % RDW 15.7 H (11.5-15.5) % Neutrophils # 9.3 H (1.3-7.7) k/uL Lymphocytes # 0.8 L (1.0-4.8) k/uL PT 12.9 H (10.0-12.5) sec INR 1.2 H (<1.2) Microbiology - Last 24 Hours (Table) 04/20/24 11:30 Gram Stain - Preliminary Abdomen Wound Culture - Preliminary Tracie albicans Assessment and Plan Assessment: IR drain placed continue current diet monitor for abdominal pain and distention Time with Patient: Less than 30
--- NOTE | 2024-04-22 13:04 | CT ---
EXAMINATION TYPE: CT guided abscess drainage DATE OF EXAM: 04/22/2024 12:48 PM COMPARISON: Prior CT/US. CLINICAL INDICATION:Female, 68 years old with history of Abdominal fluid collection with drainage tub e; Access Liver abscess, H TECHNIQUE: CT-guided abscess drainage with pigtail catheter placement. CT DLP: 1705 mGycm, Automated exposure control for dose reduction was used. Contrast used: mL of , none Oral contrast used: none ATTENDING: Hossein Oseguera D.O. PROCEDURE: DLP administered was [address] localizer images were taken which showed safest allowable access to the right lateral lyly toneal fluid collection. The patient was prepped, draped in the usual sterile fashion, and locally a nesthetized. A 18 x 20 cm Rey parth blunt needle was used to access the right lateral axial fluid collection with return of purulent fluid. Over guidewire exchange an 8.5 danish pig tail catheter w as placed. Approximately 2 mL of purulent fluid was drained and sent to the lab for analysis. A vacuum drainage bag was then attached the catheter. There was no blood loss and post-procedure hemostasis was achie roni. The patient tolerated the procedure well without complication. Patient was transferred to the general medical floor in stable condition. IMPRESSION: CT guided placement of a percutaneous pigtail drainage catheter which was left in place. [facility], , 04/22/2024 1:02 PM
--- NOTE | 2024-04-22 15:08 | P.PN ---
Subjective Progress Note Date: 04/22/24 patient is a 68-year-old lady with past medical history significant for metastatic rectal cancer brought to the ER for evaluation of lower abdominal pain. Patient that she has been not been feeling well for the last few days. Patient stated that she was having lower quad abdominal pain which was generali zed, nonradiating, no aggravating or leaving factors associated abdominal pain. Patient also complaining of constipation and has not had a bowel movement in a number of days. There was no complaint of fever or chills. There was complaint of nausea but no vomiting. Patient stated she recently started chemotherapy. Because of these symptoms, patient presented to the ER Initial lab work done in the ER showed WBC 7.5, hemoglobin 9.5, platelet count 335, sodium 130, potassium 3, BUN 14, creatinine 0.53, lactate 4.5 EKG done in the ER showed heart rate of 116 , no ST segment elevation or depres stefania seen, no T-wave inversions seen. CT abdominal pelvis done showed large pneumoperitoneum, mild circumferential wall thickening of a short segment of ascending colon and proximal sigmoid colon in associated with diverticula suggest diverticulitis versus colitis Patient admitted to internal medicine service 04/11. Patient seen and examined. Patient currently intubated, opening eyes and following commands. 04/12. Patient seen examined. Patient is currently extubated. Alert, currently has NG tube in. Lab work done this morning showed WBC 9.9, hemoglobin 10.4, platelet count 190, sodium 137, potassium 3.3, BUN 18, creatinine 0.62, glucose 100. Patient went to [facility] overnight, currently on amiodarone. 04/13. Patient seen and examined. CurrentlyLaying in the chair. Still has NG tube in. Stated pain has slightly improved. Currently on IV amiodarone, heparin. 04/14. Patient seen examined. States she feels better. Patient started on clear liquid diet . Blood work done this morning showed WBC 10.2, hemoglobin 9.2, platelet count 190, sodium 137 potassium 3.7, BUN 18, creatinine 0.43. Patient currently on oral amiodarone and IV heparin 04/15. Patient seen and examined. Patient transferred out of ICU 04/16. Patient seen and examined. Blood work done this morning showed WBC 15.2, hemoglobin 10.2, sodium 136, potassium 3.6, BUN 16, creatinine 0.40. 04/17. Patient seen and examined. Complaining of nausea, poor appetite. 04/18 Patient still complains from abdominal pain about 10/20 Colostomy bag in the left lower quadrant is working She ate little bit. Currently she is on regular diet She has central vertical abdominal wound with dressing in place Ritchie catheter in place 04/19 Patient awake and alert, no vomiting, she tolerates liquid diet only Abdominal pain is ongoing and does not look significant worsening Left lower quadrant colostomy bag is in place with brown stool which looks somewhat loose but not watery. Repeat CT of the abdomen and pelvis yesterday showing organized fluid collection in the left pelvis about 4.1 cm suspicious for an abscess and another 1 in the perihepatic area. I reviewed the CAT scan by myself and agree Patient continued on cefepime and Eraxis was added as well Patient also on Eliquis for A-fib 04/20 Patient is still have nonspecific GI symptoms, her abdominal pain is expected No overt nausea vomiting but she has poor appetite, patient was encouraged to eat and drink more and she agrees Colostomy bag is working with brown stool with no issues for now. Her leukocytosis improving slowly gradually down to 15,000, she kept on Eliquis Antibiotics with cefepime and Eraxis was added yesterday 04/21 Patient is picking up on her diet and eating more and more every day Abdominal pain controlled Colostomy bag had small hard bowel movement today. Recent CAT scan showing pelvic abscess and perihepatic abscess, surgery team discussed the case with IR and plan for placement of a drain into the perihepatic abscess but not the pelvic abscess as it is small. The recommendation continue medical treatment for the pelvic abscess. Leukocytosis slightly trending down. Patient remains on IV cefepime and Eraxis. As per general surgery Eliquis was held for her A-fib therefore we put her on therapeutic dose of Lovenox with recommendation to hold it tonight and tomorrow till cleared by the surgeon for the procedure 04/22. Patient seen and examined. Currently n.p.o., going for IR guided drain placement. States she does not feel well. Complaining of lethargy and weakness REVIEW OF SYSTEMS: Denies any chest pain. Denies any fever or chills PHYSICAL EXAMINATION: GENERAL: The patient is alert HEENT: Pupils are round and equally reacting to light. EOMI. No scleral icterus. No conjunctival pallor. Normocephalic, atraumatic. No pharyngeal erythema. No thyromegaly. CARDIOVASCULAR: S1 and S2 present. No murmurs, rubs, or gallops. PULMONARY: Chest is clear to auscultation, no wheezing or crackles. ABDOMEN: Tenderness, surgical incision seen, ostomy seen no palpable organomegaly. MUSCULOSKELETAL: No joint swelling or deformity. EXTREMITIES: No cyanosis, clubbing, or pedal edema. NEUROLOGICAL: Moving all extremities SKIN: No rashes. Assessment and plan Pneumoperitoneum, status post exploratory laparotomy and sigmoid colon resection with end colostomy Repeat CAT scan on 04/18 showing possible left pelvic abscess 4.1 cm and smaller perihepatic abscess Sepsis A-fib with RVR Acute hypoxic respiratory failure Acute sigmoid colon perforation Acute diverticulitis Hyponatremia Hypokalemia Lactic acidosis History of rectal cancer Monitor vital signs Monitor CBC Monitor CMP Continue telemetry monitoring status post exploratory laparotomy and sigmoid colon resection with end colostomy Repeat CAT scan on 04/18 showing possible left pelvic abscess 4.1 cm and smaller perihepatic abscess Aggressive bronchopulmonary hygiene Continue IV Eraxis, cefepime and Flagyl IR consulted for drain placement for liver abscess Pulmonology following Surgery following ID following Labs and medication were reviewed.. Continue same treatment. Continue with symptomatic treatment. Resume home medication. Monitor labs and vitals. DVT and GI prophylaxis. Further recommendations as per clinical course of the patient Dictation was produced using [employer] dictation software. please excuse any grammatical, word or spelling errors. Objective - Vital Signs Vital signs: Vital Signs Temp 98.3 F 04/22/24 04:00 Pulse 79 04/22/24 08:00 Resp 16 04/22/24 08:00 BP 162/77 04/22/24 08:00 Pulse Ox 95 04/22/24 08:00 FiO2 40 04/14/24 16:00 Intake & Output 04/21/24 04/22/24 04/22/24 18:59 06:59 18:59 Intake Total 560 240 Output Total 1200 Balance 560 -960 Weight 58.7 kg Intake: Oral 560 240 Output: Urine 1200 Other: Voiding Method Indwelling Catheter Indwelling Catheter # Voids 0 # Bowel Movements 0 0 ABP, PAP, CO, CI - Last Documented Arterial Blood Pressure 122/51 - Labs CBC & Chem 7: 04/22/24 06:17 04/19/24 06:23 Labs: Abnormal Lab Results - Last 24 Hours (Table) 04/21/24 04/22/24 Range/Units 18:09 06:17 WBC 11.0 H (3.8-10.6) k/uL RBC 3.26 L (3.80-5.40) m/uL Hgb 9.8 L (11.4-16.0) gm/dL Hct 29.8 L (34.0-46.0) % RDW 15.7 H (11.5-15.5) % Neutrophils # 9.3 H (1.3-7.7) k/uL Lymphocytes # 0.8 L (1.0-4.8) k/uL PT 12.9 H (10.0-12.5) sec INR 1.2 H (<1.2) Microbiology - Last 24 Hours (Table) 04/20/24 11:30 Gram Stain - Final Abdomen Wound Culture - Final Tracie albicans
--- NOTE | 2024-04-22 15:08 | P.PN ---
Subjective Progress Note Date: 04/22/24 This is a 68-year-old female with history of metastatic rectal cancer presented to the ER 04/10 mostly with abdominal pain. Patient has been receiving chemotherapy for her rectal cancer, her first treatment was March 29. Patient has not been feeling well since March 29, presented to the ER with f ew days history of abdominal pain, lower abdominal pain. Patient had some nausea, no vomiting. No bowel movement for the few days, patient noted no fever, no chills, CT of the abdomen pelvis showed pneumoperitoneum and possible perforation of the ascending colon. Patient underwent exploratory laparotomy sigmoid colon resection with end colostomy. Patient was found to have perforated diverticulitis of the sigmoid colon. Postoperatively, patient was sent to the ICU, intubated mechanically ventilated, she is presently on assist- control rate of 16, tidal volume increased to 350, FiO2 100% and PEEP of 5. ABG on FiO2 of 100% showed a pO2 of 392, pCO2 of 53 pH of 7.35, hence vent adjustment was made and she was on FiO2 of 40%, rate of 16, and tidal volume of 350. Patient is hemodynamically stable, not requiring any pressors, she is however requiring fluids for relatively marginal blood pressure and tachycardia. Her electrolytes showed low potassium of 3.0 that is being addressed accor dingly bicarb is 27 renal profile is normal WBC count is 1.4 hemoglobin 13.8. Her WBC count on admission was 7.5 dropped down significantly to 1.4. Antibiotics miranda, patient received cefepime, she is also on metronidazole, patient could not be placed on Zosyn mostly because of her penicillin allergy. On her initial presentation she received Levaquin she also received a Rocephin. 04/11/2024 patient seen and examined at bedside. Patient still in the ICU intubated, sedated and mechanically ventilated. Ventilator settings are assist- control with a rate of 16, tidal volume 350, PEEP of 5 with FiO2 40%. No acute events overnight. Currently drips are normal saline 0.9% with a rate of 130 cc /h, propofol with a rate of 40 and Levophed of 0.02 mcg/kg/min. Chest x-ray shows atelectasis at the right lung base with ET tube, NG tube, and central venous catheters in place. ABG Shows CO2 22, CO2 41 and pH of 7.36. Other labs today show WBC 4.3, hemoglobin 11.5, platelet count 1 59,000, sodium 134, potassium 4.2 BUN 16, creatinine 0.58 glucose 102, calcium 7.6, phosphorus 3, magnesium 2.1 04/12/2024 patient seen and examined at bedside. Patient still in the ICU and was extubated around 11 AM yesterday at 04/11. Overnight, patient had an episode of A-fib with rapid ventricular response with associated hypotension. Currently on IV fluids normal saline at 100 cc, amiodarone IV at 0.5 mg/min, heparin drip at 12 units/kg/h, and Cardizem drip at 1 mg/h. Chest x-ray today shows mild atelectatic type changes at the left base with central venous catheter, NG tube in place. Labs today showed WBC 9.9 hemoglobin 10.4 platelet count 190,000 PTT 36.1 PTT 12.1 INR 1.1 sodium 137 potassium 3.3 chloride 112 bicarb 21 BUN 18 creatinine 0.62 glucose 100 calcium 8.4 magnesium 2.1 04/13/2024 patient seen and examined at bedside. No acute events overnight. Postop exploratory laparotomy and sigmoid colon resection with end colostomy day 3. Currently on IV fluids normal saline at 100 cc, amiodarone IV at 0.5 mg/min and heparin drip at 12 units/kg/h. On day 4 of metronidazole IV and cefepime IV. Chest x-ray showed interval development of some mild infiltrate at the right base which is likely atelectasis with small left pleural effusion and NG tube and central venous catheter and port catheter seen and in place. Labs today show WBC 12.4, hemoglobin 10.1, platelet count 1 93,000 PTT 49.9, sodium 136, potassium 4, bicarb 18, BUN 19, creatinine 0.46, glucose 90, calcium 8.7. TSH less than 0.0 15 Free T41.72. Echocardiogram showed hyperdynamic LV, EF 60%, concerns of concentric LVH with mid ventricular obstruction with elevated gradients with peak gradients more than 100 mmHg, systolic anterior motion of mitral valve with moderate MR. 04/14/2024 patient seen and examined at bedside. No acute events overnight. Postop exploratory laparotomy and sigmoid colon resection with end colostomy day 4. Currently on IV fluids lactated Ringer's at 50 cc/h, and heparin 12 units/k g/h. On day 5, metronidazole IV and cefepime IV. Labs today show WBC 10.2, hemoglobin 10.2, platelet count 190,000 PTT 44.4, sodium 136, potassium 3.7, chloride 109, bicarb 21, BUN 18, creatinine 0.43, glucose 71, calcium 8.6 04/15/2024 patient seen and examined at bedside. No acute events overnight. NG tube removed. Patient started on clear liquid diet yesterday. Postop exploratory laparotomy and sigmoid colon resection with end colostomy day 5. Currently on IV fluids lactated Ringer's at 50 cc/h. Labs today show WBC 10.2, hemoglobin 10.5, platelet count 1 75,000, PTT 53.7, sodium 135, potassium 3.7, bicarb 23, chloride 107, BUN 18, creatinine 0.39, glucose 106, calcium 8.5 Progress note dated April 16, 2024. This is a 68-year-old female with history of postoperative day #6, status post exploratory laparotomy and sigmoid colon resection, with end colostomy. The patient was transferred out of the intensive care unit. The patient is doing very well. She is seen today in room 354. She is on room air. She is not receiving any IV fluids. NG tube has been removed. Current labs include a white count 15.2, hemoglobin 10.2, hematocrit 30.5, and a normal platelet count. Sodium 136, potassium 3.6, chlorides 107, CO2 26, BUN 16, creatinine 0.4. Glucose is 110. Calcium is 8.4. Progress note dated April 17, 2024. 68-year-old female with a history of postoperative day #7, status post exploratory laparotomy sigmoid colon resection with end colostomy. The patient was transferred out of the intensive care unit, a few days ago. Clinically she is doing well. She is currently on room air. No IV fluids. NG tube has been removed. She is taking nutrition by mouth. She has no specific complaints today. The only blood work today is a glucose of 123. On 04/18/2024, the patient is being seen for a follow-up. The patient is postop day #8 following a expiratory laparotomy and sigmoid resection with end colostomy. Surgical wound site is dry clean and intact. Ryan are in place. Colostomy site is functional. No significant nausea vomiting or abdominal pain. The patient is tolerating diet at this point in time. She has increased edema in all 4 extremities. She is currently on room air oxygen. The patient denies having any significant shortness of breath. She is on room air oxygen with a pulse ox of 97%. The white cell count of 18 with a hemoglobin of 10 and a platelet count of 182. BUN is 13 with a creatinine of 0.4 and a sodium levels at 133 and a potassium level is at 3.1. Noted the patient also has history of metastatic rectal cancer being treated with chemotherapy on outpatient basis. She is status post sigmoid resection for a perforated diverticulitis of the sigmoid colon. She is also post respiratory failure requiring intubation mechanical ventilation. Antibiotic coverage includes IV cefepime for now. She is on [place] for pain control. Blood cultures are negative. She is awake and alert and she is also communicating. Complaining of extensive weakness and profound edema in all 4 extremities. She is known to have hypoproteinemia and hypoalbuminemia. She is also on anticoagulation with Eliquis 5 mg p.o. twice daily regarding atrial fibrillation. On 04/19/2024 patient is being seen for a follow-up. Patient is postop day #9. The patient underwent a sigmoid resection and end colostomy. Colostomy is still functional and the patient is tolerating her diet. The patient was complaining of some ongoing nausea and based on that, a CAT scan of the abdomen and pelvis was obtained on 04/18/2024 and the CAT scan showed postsurgical changes in the left lower quadrant ostomy. There was trace pneumoperitoneum and small volume ascites throughout the abdomen and pelvis. There was also an organized fluid collection in the left pelvic area measuring up to 4.1 cm in size and this was concerning for an underlying abscess formation. Additional organized fluid collection in the perihepatic region was also seen concerning for abscess and the patient continued to have diffuse anasarca with moderate right-sided pleural effusion and small left-sided pleural effusion. General surgery is on the case and interventional radiology was consulted for possible drainage of the fluid collection. Meanwhile, the patient remains on a combination of cefepime and Eraxis. The patient was reporting significant edema in all 4 extremities and the patient was given Lasix and the patient is currently in negative fluid balance of 1.4 L over the past 24 hours. Continues to have edema and based on that we will maintain the patient on Lasix 20 mg IV every 12 hours. Respiratory status is stable. The patient is currently on room air oxygen with a pulse ox of 98%. General surgery and infectious diseases are both on the case. Noted the patient does not have any significant nausea or emesis and she is feeling well. The white cell count is 16.1 with a hemoglobin 9.7 and a platelet count of 2 8. BUN 50 with a creatinine of 0.4. 04/20/2024, the patient is awake and alert and communicating. She is on room air oxygen. Unfortunately, intra-abdominal abscesses were notified and the patient is awaiting interventional radiology to drain the intra-abdominal abscesses. Meanwhile, the surgical wound was inspected today and there is leakage of purulent material in the mid incision and based on that 2 of the ryan were removed. The drainage is minimal yet is present. At the same time, the patient has a function ostomy. Another pustular collection was noted over the anterior chest area. The patient is afebrile. Hemodynamically stable. White cell count of 15 with a hemoglobin of 9.9 and a platelet count of 224. Antibiotic coverage remains unchanged and the patient remains on a combination of cefepime and Eraxis. On a separate note, the patient was being diuresed with IV Lasix. The patient remains on Lasix 20 mg IV every 12 hours. She had diffuse anasarca and third spacing and the patient remains in negative fluid balance of 1.9 L over the past 24 hours. The electrolytes are being monitored. The patient is postop day #10 following expect laparotomy and sigmoid colectomy and colostomy for perforated diverticulitis. As mentioned, CAT scan of the abdomen and pelvis showed 2 areas of fluid collection, possibly an abscess formation.. On 04/21/2024, the patient remains on room air oxygen. No new complaints for now. No active drainage from the surgical wound site. Colostomy is functional. The patient is awaiting a IR guided drainage of the abdominal/pelvic fluid collection/abscesses. The patient remains on IV cefepime and Eraxis. Currently off diuretics. White cell count is 15 with a hemoglobin 9.9 and a platelet count of 224. Procalcitonin level level was at 0.5. No nausea. No emesis. T he patient is postop day #11 following exploratory laparotomy and sigmoid colectomy and end colostomy for a perforated diverticulitis. She is also known to have metastatic rectal cancer. Her appetite is down. She is supplementing diet with some Ensure. No others significant events overnight. Overall condition remains stable. 04/22/2024, the patient is being seen for a follow-up. Resting comfortably in bed. The patient is going to undergo a percutaneous drainage of the pelvic/abdominal fluid collection/abscesses. Surgical wound site is dry clean and intact. She is on room air oxygen. She remains on broad-spectrum antibiotics including Eraxis and cefepime. No active drainage from the abdominal wound. The white cell count is 11 with a hemoglobin 9.8 and a platelet count of 251. Her colostomy is functional. Her procalcitonin level is at 0.5. Awake and alert and communicating. Objective - Vital Signs Vital signs: Vital Signs Temp 98.3 F 04/22/24 04:00 Pulse 79 04/22/24 08:00 Resp 16 04/22/24 08:00 BP 162/77 04/22/24 08:00 Pulse Ox 95 04/22/24 08:00 FiO2 40 04/14/24 16:00 Intake & Output 04/21/24 04/22/24 04/22/24 18:59 06:59 18:59 Intake Total 560 240 Output Total 1200 Balance 560 -960 Weight 58.7 kg Intake: Oral 560 240 Output: Urine 1200 Other: Voiding Method Indwelling Catheter Indwelling Catheter # Voids 0 # Bowel Movements 0 0 ABP, PAP, CO, CI - Last Documented Arterial Blood Pressure 122/51 - Exam No acute distress, oriented 3. Currently on room air. HEENT examination is grossly unremarkable. Mucous membranes are moist. No oral lesions. Neck supple. Full range of motion. No adenopathy thyromegaly or neck vein distention. Cardiovascular examination reveals regular rhythm rate. S1-S2 normal. No S3 or S4. No discernible murmur noted. Subcutaneous abscess was noted over the anterior chest measuring around 2 cm in size that needs to be further incised and drained. Lungs reveal mostly clear breath sounds. Minimal scattered rhonchi. No wheezes or crackles. Breath sounds equal bilaterally. Abdomen with occasional bowel sounds. Colostomy is noted. The colostomy is functioning the surgical wound site over the mid abdomen is showing some purulent drainage at the level of the mid incision and 2 of the ryan were removed. The rest of ryan are still in place. Extremities are intact. No cyanosis clubbing positive +1-2 edema in all 4 extremities mainly in the lower extremities bilaterally. Skin is without rash or lesion. Neurologic examination is brief but nonfocal. - Labs CBC & Chem 7: 04/22/24 06:17 04/19/24 06:23 Labs: Abnormal Lab Results - Last 24 Hours (Table) 04/21/24 04/22/24 Range/Units 18:09 06:17 WBC 11.0 H (3.8-10.6) k/uL RBC 3.26 L (3.80-5.40) m/uL Hgb 9.8 L (11.4-16.0) gm/dL Hct 29.8 L (34.0-46.0) % RDW 15.7 H (11.5-15.5) % Neutrophils # 9.3 H (1.3-7.7) k/uL Lymphocytes # 0.8 L (1.0-4.8) k/uL PT 12.9 H (10.0-12.5) sec INR 1.2 H (<1.2) Microbiology - Last 24 Hours (Table) 04/20/24 11:30 Gram Stain - Final Abdomen Wound Culture - Final Tracie albicans Assessment and Plan Plan: Postoperative day # 12 status post exploratory laparotomy, sigmoid colon resection with end colostomy. Surgery was done for pneumoperitoneum and the patient was found to have a perforated sigmoid diverticulitis status post sigmoid colectomy and end colostomy. Patient is tolerating diet. Colostomy is functional. Surgical wound site dry clean and intact. A follow-up CAT scan of the abdomen and pelvis from 04/18/2024 showed Fluids collection/organized fluid versus abscess measuring 4.1 cm in the left pelvic area concerning for abscess. Additional organized fluid collection in the perihepatic region was also seen. Interventional radiology was consulted for possible drainage. General surgery is on the case. Infectious disease on the case. The patient remains on a combination of Eraxis and cefepime. The patient has no active drainage from the surgical wound site and the patient is going to undergo a percutaneous drainage of the fluid collection/abscess in the left pelvic area. This will be done by interventional radiology. Anterior chest subcutaneous abscess that needs to be incised and drained Diffuse anasarca secondary to hypoproteinemia and hypoalbuminemia and the patient's albumin level is at 1.7, currently off Lasix Bilateral pleural effusion Acute hypoxic respiratory failure, improved and the patient is currently on room air oxygen Paroxysmal atrial fibrillation, maintained on amiodarone and metoprolol. The patient is currently in normal sinus mechanism. Hypertension. Pneumoperitoneum, a result of the exploratory laparotomy. Acute hypoxemic respiratory failure, resolved. Patient is currently on room air oxygen Abdominal sepsis, resolved. Remains on IV cefepime and blood cultures negative Lactic acidosis, resolved. History of metastatic rectal carcinoma. History of hypertrophic obstructive cardiomyopathy. Hyperproteinemia Lower extremity edema Plan: Continue using incentive spirometer Continue IV cefepime and Eraxis Advance diet as tolerated Interventional radiologist were consulted regarding the possibility of drainage of the pelvic fluid, this is to be done today colostomy is functional Surgical wound site is dry. Monitor serum protein and albumin levels Labs were noted, potassium needs to be replaced Continue amiodarone 200 mg p.o. twice daily and metoprolol 50 mg p.o. twice daily, anticoagulation has been held Pain control with [place] Continue Cozaar Continue IV Protonix Will continue to follow
--- NOTE | 2024-04-23 12:18 | P.PN ---
Subjective Progress Note Date: 04/23/24 This is a 68-year-old female with history of metastatic rectal cancer presented to the ER 04/10 mostly with abdominal pain. Patient has been receiving chemotherapy for her rectal cancer, her first treatment was March 29. Patient has not been feeling well since March 29, presented to the ER with f ew days history of abdominal pain, lower abdominal pain. Patient had some nausea, no vomiting. No bowel movement for the few days, patient noted no fever, no chills, CT of the abdomen pelvis showed pneumoperitoneum and possible perforation of the ascending colon. Patient underwent exploratory laparotomy sigmoid colon resection with end colostomy. Patient was found to have perforated diverticulitis of the sigmoid colon. Postoperatively, patient was sent to the ICU, intubated mechanically ventilated, she is presently on assist- control rate of 16, tidal volume increased to 350, FiO2 100% and PEEP of 5. ABG on FiO2 of 100% showed a pO2 of 392, pCO2 of 53 pH of 7.35, hence vent adjustment was made and she was on FiO2 of 40%, rate of 16, and tidal volume of 350. Patient is hemodynamically stable, not requiring any pressors, she is however requiring fluids for relatively marginal blood pressure and tachycardia. Her electrolytes showed low potassium of 3.0 that is being addressed accor dingly bicarb is 27 renal profile is normal WBC count is 1.4 hemoglobin 13.8. Her WBC count on admission was 7.5 dropped down significantly to 1.4. Antibiotics miranda, patient received cefepime, she is also on metronidazole, patient could not be placed on Zosyn mostly because of her penicillin allergy. On her initial presentation she received Levaquin she also received a Rocephin. 04/11/2024 patient seen and examined at bedside. Patient still in the ICU intubated, sedated and mechanically ventilated. Ventilator settings are assist- control with a rate of 16, tidal volume 350, PEEP of 5 with FiO2 40%. No acute events overnight. Currently drips are normal saline 0.9% with a rate of 130 cc /h, propofol with a rate of 40 and Levophed of 0.02 mcg/kg/min. Chest x-ray shows atelectasis at the right lung base with ET tube, NG tube, and central venous catheters in place. ABG Shows CO2 22, CO2 41 and pH of 7.36. Other labs today show WBC 4.3, hemoglobin 11.5, platelet count 1 59,000, sodium 134, potassium 4.2 BUN 16, creatinine 0.58 glucose 102, calcium 7.6, phosphorus 3, magnesium 2.1 04/12/2024 patient seen and examined at bedside. Patient still in the ICU and was extubated around 11 AM yesterday at 04/11. Overnight, patient had an episode of A-fib with rapid ventricular response with associated hypotension. Currently on IV fluids normal saline at 100 cc, amiodarone IV at 0.5 mg/min, heparin drip at 12 units/kg/h, and Cardizem drip at 1 mg/h. Chest x-ray today shows mild atelectatic type changes at the left base with central venous catheter, NG tube in place. Labs today showed WBC 9.9 hemoglobin 10.4 platelet count 190,000 PTT 36.1 PTT 12.1 INR 1.1 sodium 137 potassium 3.3 chloride 112 bicarb 21 BUN 18 creatinine 0.62 glucose 100 calcium 8.4 magnesium 2.1 04/13/2024 patient seen and examined at bedside. No acute events overnight. Postop exploratory laparotomy and sigmoid colon resection with end colostomy day 3. Currently on IV fluids normal saline at 100 cc, amiodarone IV at 0.5 mg/min and heparin drip at 12 units/kg/h. On day 4 of metronidazole IV and cefepime IV. Chest x-ray showed interval development of some mild infiltrate at the right base which is likely atelectasis with small left pleural effusion and NG tube and central venous catheter and port catheter seen and in place. Labs today show WBC 12.4, hemoglobin 10.1, platelet count 1 93,000 PTT 49.9, sodium 136, potassium 4, bicarb 18, BUN 19, creatinine 0.46, glucose 90, calcium 8.7. TSH less than 0.0 15 Free T41.72. Echocardiogram showed hyperdynamic LV, EF 60%, concerns of concentric LVH with mid ventricular obstruction with elevated gradients with peak gradients more than 100 mmHg, systolic anterior motion of mitral valve with moderate MR. 04/14/2024 patient seen and examined at bedside. No acute events overnight. Postop exploratory laparotomy and sigmoid colon resection with end colostomy day 4. Currently on IV fluids lactated Ringer's at 50 cc/h, and heparin 12 units/k g/h. On day 5, metronidazole IV and cefepime IV. Labs today show WBC 10.2, hemoglobin 10.2, platelet count 190,000 PTT 44.4, sodium 136, potassium 3.7, chloride 109, bicarb 21, BUN 18, creatinine 0.43, glucose 71, calcium 8.6 04/15/2024 patient seen and examined at bedside. No acute events overnight. NG tube removed. Patient started on clear liquid diet yesterday. Postop exploratory laparotomy and sigmoid colon resection with end colostomy day 5. Currently on IV fluids lactated Ringer's at 50 cc/h. Labs today show WBC 10.2, hemoglobin 10.5, platelet count 1 75,000, PTT 53.7, sodium 135, potassium 3.7, bicarb 23, chloride 107, BUN 18, creatinine 0.39, glucose 106, calcium 8.5 Progress note dated April 16, 2024. This is a 68-year-old female with history of postoperative day #6, status post exploratory laparotomy and sigmoid colon resection, with end colostomy. The patient was transferred out of the intensive care unit. The patient is doing very well. She is seen today in room 354. She is on room air. She is not receiving any IV fluids. NG tube has been removed. Current labs include a white count 15.2, hemoglobin 10.2, hematocrit 30.5, and a normal platelet count. Sodium 136, potassium 3.6, chlorides 107, CO2 26, BUN 16, creatinine 0.4. Glucose is 110. Calcium is 8.4. Progress note dated April 17, 2024. 68-year-old female with a history of postoperative day #7, status post exploratory laparotomy sigmoid colon resection with end colostomy. The patient was transferred out of the intensive care unit, a few days ago. Clinically she is doing well. She is currently on room air. No IV fluids. NG tube has been removed. She is taking nutrition by mouth. She has no specific complaints today. The only blood work today is a glucose of 123. On 04/18/2024, the patient is being seen for a follow-up. The patient is postop day #8 following a expiratory laparotomy and sigmoid resection with end colostomy. Surgical wound site is dry clean and intact. Ryan are in place. Colostomy site is functional. No significant nausea vomiting or abdominal pain. The patient is tolerating diet at this point in time. She has increased edema in all 4 extremities. She is currently on room air oxygen. The patient denies having any significant shortness of breath. She is on room air oxygen with a pulse ox of 97%. The white cell count of 18 with a hemoglobin of 10 and a platelet count of 182. BUN is 13 with a creatinine of 0.4 and a sodium levels at 133 and a potassium level is at 3.1. Noted the patient also has history of metastatic rectal cancer being treated with chemotherapy on outpatient basis. She is status post sigmoid resection for a perforated diverticulitis of the sigmoid colon. She is also post respiratory failure requiring intubation mechanical ventilation. Antibiotic coverage includes IV cefepime for now. She is on Clopton for pain control. Blood cultures are negative. She is awake and alert and she is also communicating. Complaining of extensive weakness and profound edema in all 4 extremities. She is known to have hypoproteinemia and hypoalbuminemia. She is also on anticoagulation with Eliquis 5 mg p.o. twice daily regarding atrial fibrillation. On 04/19/2024 patient is being seen for a follow-up. Patient is postop day #9. The patient underwent a sigmoid resection and end colostomy. Colostomy is still functional and the patient is tolerating her diet. The patient was complaining of some ongoing nausea and based on that, a CAT scan of the abdomen and pelvis was obtained on 04/18/2024 and the CAT scan showed postsurgical changes in the left lower quadrant ostomy. There was trace pneumoperitoneum and small volume ascites throughout the abdomen and pelvis. There was also an organized fluid collection in the left pelvic area measuring up to 4.1 cm in size and this was concerning for an underlying abscess formation. Additional organized fluid collection in the perihepatic region was also seen concerning for abscess and the patient continued to have diffuse anasarca with moderate right-sided pleural effusion and small left-sided pleural effusion. General surgery is on the case and interventional radiology was consulted for possible drainage of the fluid collection. Meanwhile, the patient remains on a combination of cefepime and Eraxis. The patient was reporting significant edema in all 4 extremities and the patient was given Lasix and the patient is currently in negative fluid balance of 1.4 L over the past 24 hours. Continues to have edema and based on that we will maintain the patient on Lasix 20 mg IV every 12 hours. Respiratory status is stable. The patient is currently on room air oxygen with a pulse ox of 98%. General surgery and infectious diseases are both on the case. Noted the patient does not have any significant nausea or emesis and she is feeling well. The white cell count is 16.1 with a hemoglobin 9.7 and a platelet count of 2 8. BUN 50 with a creatinine of 0.4. 04/20/2024, the patient is awake and alert and communicating. She is on room air oxygen. Unfortunately, intra-abdominal abscesses were notified and the patient is awaiting interventional radiology to drain the intra-abdominal abscesses. Meanwhile, the surgical wound was inspected today and there is leakage of purulent material in the mid incision and based on that 2 of the ryan were removed. The drainage is minimal yet is present. At the same time, the patient has a function ostomy. Another pustular collection was noted over the anterior chest area. The patient is afebrile. Hemodynamically stable. White cell count of 15 with a hemoglobin of 9.9 and a platelet count of 224. Antibiotic coverage remains unchanged and the patient remains on a combination of cefepime and Eraxis. On a separate note, the patient was being diuresed with IV Lasix. The patient remains on Lasix 20 mg IV every 12 hours. She had diffuse anasarca and third spacing and the patient remains in negative fluid balance of 1.9 L over the past 24 hours. The electrolytes are being monitored. The patient is postop day #10 following expect laparotomy and sigmoid colectomy and colostomy for perforated diverticulitis. As mentioned, CAT scan of the abdomen and pelvis showed 2 areas of fluid collection, possibly an abscess formation.. On 04/21/2024, the patient remains on room air oxygen. No new complaints for now. No active drainage from the surgical wound site. Colostomy is functional. The patient is awaiting a IR guided drainage of the abdominal/pelvic fluid collection/abscesses. The patient remains on IV cefepime and Eraxis. Currently off diuretics. White cell count is 15 with a hemoglobin 9.9 and a platelet count of 224. Procalcitonin level level was at 0.5. No nausea. No emesis. T he patient is postop day #11 following exploratory laparotomy and sigmoid colectomy and end colostomy for a perforated diverticulitis. She is also known to have metastatic rectal cancer. Her appetite is down. She is supplementing diet with some Ensure. No others significant events overnight. Overall condition remains stable. 04/22/2024, the patient is being seen for a follow-up. Resting comfortably in bed. The patient is going to undergo a percutaneous drainage of the pelvic/abdominal fluid collection/abscesses. Surgical wound site is dry clean and intact. She is on room air oxygen. She remains on broad-spectrum antibiotics including Eraxis and cefepime. No active drainage from the abdominal wound. The white cell count is 11 with a hemoglobin 9.8 and a platelet count of 251. Her colostomy is functional. Her procalcitonin level is at 0.5. Awake and alert and communicating. On 04/23/2024, the patient is status post drainage of the pelvic/abdominal fluid and output from the drainage has been minimal at this point in time. Surgical wound site is dry clean and intact and there is no active drainage. No fever. Remains on room air oxygen. No significant leukocytosis. White cell count is 11. Procalcitonin level is at 0.5 from 04/20/2024. The patient remains on Eraxis and cefepime. Colostomy is functional. She denies having any new complaints. Hemoglobin is at 9.8 Objective - Vital Signs Vital signs: Vital Signs Temp 98.9 F 04/23/24 04:00 Pulse 75 04/23/24 04:00 Resp 16 04/23/24 04:00 BP 151/71 04/23/24 04:00 Pulse Ox 92 L 04/23/24 04:00 FiO2 40 04/14/24 16:00 Intake & Output 04/22/24 04/23/24 04/23/24 18:59 06:59 18:59 Intake Total 240 Output Total 300 425 Balance -300 -185 Weight 58.7 kg 61.5 kg Intake: Oral 240 Output: Urine 300 425 Other: Voiding Method Indwelling Catheter Indwelling Catheter # Bowel Movements 1 ABP, PAP, CO, CI - Last Documented Arterial Blood Pressure 122/51 - Exam No acute distress, oriented 3. Currently on room air. HEENT examination is grossly unremarkable. Mucous membranes are moist. No oral lesions. Neck supple. Full range of motion. No adenopathy thyromegaly or neck vein distention. Cardiovascular examination reveals regular rhythm rate. S1-S2 normal. No S3 or S4. No discernible murmur noted. Subcutaneous abscess was noted over the anterior chest measuring around 2 cm in size that needs to be further incised and drained. Lungs reveal mostly clear breath sounds. Minimal scattered rhonchi. No wheezes or crackles. Breath sounds equal bilaterally. Abdomen with occasional bowel sounds. Colostomy is noted. The colostomy is fu nctioning the surgical wound site over the mid abdomen is showing some purulent drainage at the level of the mid incision and 2 of the ryan were removed. The rest of ryan are still in place. The patient also has a drainage tube with no output. Extremities are intact. No cyanosis clubbing positive +1-2 edema in all 4 extremities mainly in the lower extremities bilaterally. Skin is without rash or lesion. Neurologic examination is brief but nonfocal. - Labs CBC & Chem 7: 04/22/24 06:17 04/19/24 06:23 Labs: Microbiology - Last 24 Hours (Table) 04/20/24 11:30 Anaerobic Culture - Preliminary Abdomen 04/20/24 11:30 Gram Stain - Final Abdomen Wound Culture - Final Tracie albicans Assessment and Plan Plan: Postoperative day # 13 status post exploratory laparotomy, sigmoid colon resection with end colostomy. Surgery was done for pneumoperitoneum and the patient was found to have a perforated sigmoid diverticulitis status post sigmoid colectomy and end colostomy. Patient is tolerating diet. Colostomy is functional. Surgical wound site dry clean and intact. A follow-up CAT scan of the abdomen and pelvis from 04/18/2024 showed Fluids collection/organized fluid versus abscess measuring 4.1 cm in the left pelvic area concerning for abscess. Additional organized fluid collection in the perihepatic region was also seen. Interventional radiology was consulted for possible drainage. General surgery is on the case. Infectious disease on the case. The patient remains on a combination of Eraxis and cefepime. The patient has no active drainage from the surgical wound site and the patient underwent a percutaneous drainage of the abdominal fluid collection. Output is minimal at this point in time. Surgical wound site is dry clean and intact. Colostomy is functional. Anterior chest subcutaneous abscess Diffuse anasarca secondary to hypoproteinemia and hypoalbuminemia and the patient's albumin level is at 1.7, currently off Lasix Bilateral pleural effusion Acute hypoxic respiratory failure, improved and the patient is currently on room air oxygen Paroxysmal atrial fibrillation, maintained on amiodarone and metoprolol. The patient is currently in normal sinus mechanism. Hypertension. Pneumoperitoneum, a result of the exploratory laparotomy. Acute hypoxemic respiratory failure, resolved. Patient is currently on room air oxygen Abdominal sepsis, resolved. Remains on IV cefepime and blood cultures negative Lactic acidosis, resolved. History of metastatic rectal carcinoma. History of hypertrophic obstructive cardiomyopathy. Hyperproteinemia Lower extremity edema Plan: Continue using incentive spirometer Continue IV cefepime and Eraxis Advance diet as tolerated Abdominal drainage catheter was inserted, output is minimal at this point in time. colostomy is functional Surgical wound site is dry. Monitor serum protein and albumin levels Labs were noted, potassium needs to be replaced Continue amiodarone 200 mg p.o. twice daily and metoprolol 50 mg p.o. twice daily, anticoagulation has been held Pain control with Clopton Continue Cozaar Continue IV Protonix Will continue to follow
--- NOTE | 2024-04-23 13:41 | P.PN ---
Subjective Progress Note Date: 04/23/24 patient is a 68-year-old lady with past medical history significant for metastatic rectal cancer brought to the ER for evaluation of lower abdominal pain. Patient that she has been not been feeling well for the last few days. Patient stated that she was having lower quad abdominal pain which was generali zed, nonradiating, no aggravating or leaving factors associated abdominal pain. Patient also complaining of constipation and has not had a bowel movement in a number of days. There was no complaint of fever or chills. There was complaint of nausea but no vomiting. Patient stated she recently started chemotherapy. Because of these symptoms, patient presented to the ER Initial lab work done in the ER showed WBC 7.5, hemoglobin 9.5, platelet count 335, sodium 130, potassium 3, BUN 14, creatinine 0.53, lactate 4.5 EKG done in the ER showed heart rate of 116 , no ST segment elevation or depres stefania seen, no T-wave inversions seen. CT abdominal pelvis done showed large pneumoperitoneum, mild circumferential wall thickening of a short segment of ascending colon and proximal sigmoid colon in associated with diverticula suggest diverticulitis versus colitis Patient admitted to internal medicine service 04/11. Patient seen and examined. Patient currently intubated, opening eyes and following commands. 04/12. Patient seen examined. Patient is currently extubated. Alert, currently has NG tube in. Lab work done this morning showed WBC 9.9, hemoglobin 10.4, platelet count 190, sodium 137, potassium 3.3, BUN 18, creatinine 0.62, glucose 100. Patient went to [facility] overnight, currently on amiodarone. 04/13. Patient seen and examined. CurrentlyLaying in the chair. Still has NG tube in. Stated pain has slightly improved. Currently on IV amiodarone, heparin. 04/14. Patient seen examined. States she feels better. Patient started on clear liquid diet . Blood work done this morning showed WBC 10.2, hemoglobin 9.2, platelet count 190, sodium 137 potassium 3.7, BUN 18, creatinine 0.43. Patient currently on oral amiodarone and IV heparin 04/15. Patient seen and examined. Patient transferred out of ICU 04/16. Patient seen and examined. Blood work done this morning showed WBC 15.2, hemoglobin 10.2, sodium 136, potassium 3.6, BUN 16, creatinine 0.40. 04/17. Patient seen and examined. Complaining of nausea, poor appetite. 04/18 Patient still complains from abdominal pain about 7/ Colostomy bag in the left lower quadrant is working She ate little bit. Currently she is on regular diet She has central vertical abdominal wound with dressing in place Ritchie catheter in place 04/19 Patient awake and alert, no vomiting, she tolerates liquid diet only Abdominal pain is ongoing and does not look significant worsening Left lower quadrant colostomy bag is in place with brown stool which looks somewhat loose but not watery. Repeat CT of the abdomen and pelvis yesterday showing organized fluid collection in the left pelvis about 4.1 cm suspicious for an abscess and another 1 in the perihepatic area. I reviewed the CAT scan by myself and agree Patient continued on cefepime and Eraxis was added as well Patient also on Eliquis for A-fib 04/20 Patient is still have nonspecific GI symptoms, her abdominal pain is expected No overt nausea vomiting but she has poor appetite, patient was encouraged to eat and drink more and she agrees Colostomy bag is working with brown stool with no issues for now. Her leukocytosis improving slowly gradually down to 15,000, she kept on Eliquis Antibiotics with cefepime and Eraxis was added yesterday 04/21 Patient is picking up on her diet and eating more and more every day Abdominal pain controlled Colostomy bag had small hard bowel movement today. Recent CAT scan showing pelvic abscess and perihepatic abscess, surgery team discussed the case with IR and plan for placement of a drain into the perihepatic abscess but not the pelvic abscess as it is small. The recommendation continue medical treatment for the pelvic abscess. Leukocytosis slightly trending down. Patient remains on IV cefepime and Eraxis. As per general surgery Eliquis was held for her A-fib therefore we put her on therapeutic dose of Lovenox with recommendation to hold it tonight and tomorrow till cleared by the surgeon for the procedure 04/22. Patient seen and examined. Currently n.p.o., going for IR guided drain placement. States she does not feel well. Complaining of lethargy and weakness 04/23. Patient seen and examined. Patient had IR guided drain placed yesterday. States she feels better. Denies any abdominal pain. Denies nausea or vomiting. Has ostomy output. REVIEW OF SYSTEMS: Denies any chest pain. Denies any fever or chills PHYSICAL EXAMINATION: GENERAL: The patient is alert HEENT: Pupils are round and equally reacting to light. EOMI. No scleral icterus. No conjunctival pallor. Normocephalic, atraumatic. No pharyngeal erythema. No thyromegaly. CARDIOVASCULAR: S1 and S2 present. No murmurs, rubs, or gallops. PULMONARY: Chest is clear to auscultation, no wheezing or crackles. ABDOMEN: Tenderness, surgical incision seen, ostomy seen no palpable organomegaly. MUSCULOSKELETAL: No joint swelling or deformity. EXTREMITIES: No cyanosis, clubbing, or pedal edema. NEUROLOGICAL: Moving all extremities SKIN: No rashes. Assessment and plan Pneumoperitoneum, status post exploratory laparotomy and sigmoid colon resection with end colostomy Repeat CAT scan on 04/18 showing possible left pelvic abscess 4.1 cm and smaller perihepatic abscess Sepsis A-fib with RVR Acute hypoxic respiratory failure Acute sigmoid colon perforation Acute diverticulitis Hyponatremia Hypokalemia Lactic acidosis History of rectal cancer Monitor vital signs Monitor CBC Monitor CMP Continue telemetry monitoring status post exploratory laparotomy and sigmoid colon resection with end colostomy Repeat CAT scan on 04/18 showing possible left pelvic abscess 4.1 cm and smaller perihepatic abscess Aggressive bronchopulmonary hygiene Continue IV Eraxis, cefepime and Flagyl Continue Lovenox Status post drain placement by IR Pulmonology following Surgery following ID following Labs and medication were reviewed.. Continue same treatment. Continue with symptomatic treatment. Resume home medication. Monitor labs and vitals. DVT and GI prophylaxis. Further recommendations as per clinical course of the patient Dictation was produced using [employer] dictation software. please excuse any grammatical, word or spelling errors. Objective - Vital Signs Vital signs: Vital Signs Temp 98.1 F 04/23/24 11:45 Pulse 61 04/23/24 11:45 Resp 16 04/23/24 11:45 BP 131/59 04/23/24 11:45 Pulse Ox 97 04/23/24 11:45 FiO2 40 04/14/24 16:00 Intake & Output 04/22/24 04/23/24 04/23/24 18:59 06:59 18:59 Intake Total 240 Output Total 300 425 Balance -300 -185 Weight 58.7 kg 61.5 kg Intake: Oral 240 Output: Urine 300 425 Other: Voiding Method Indwelling Catheter Indwelling Catheter Indwelling Catheter # Bowel Movements 1 ABP, PAP, CO, CI - Last Documented Arterial Blood Pressure 122/51 - Labs CBC & Chem 7: 04/22/24 06:17 04/19/24 06:23 Labs: Microbiology - Last 24 Hours (Table) 04/20/24 11:30 Anaerobic Culture - Preliminary Abdomen 04/20/24 11:30 Gram Stain - Final Abdomen Wound Culture - Final Tracie albicans
--- NOTE | 2024-04-23 15:06 | P.PN ---
Subjective Progress Note Date: 04/23/24 Principal diagnosis: Reason for follow-up is parotitis perforated diverticulitis Patient is a 68-year-old female with a past medical history significant for hypertension osteoarthritis hypothyroidism, metastatic rectal cancer previous history of smoking presenting to the hospital for evaluation of abdominal pain, the patient CT has been suggestive of pneumoperitoneum with diagnosis of perforated sigmoid diverticulitis patient is status post laparotomy sigmoid resection and end colostomy. Patient did have a CT-guided drainage of the abdominal abscess completed on 04/22/2024 culture has been obtained. On today's visit that is 04/23/2024, patient did have a low-grade fever of 99.8 F last evening, the patient has been afebrile this morning and denies any chills, patient is breathing comfortably on room air patient with no chest pain or cough patient abdominal pain is currently controlled did have an episode of vomiting this morning output in the colostomy. No CBC was done today cultures are pending Objective - Vital Signs Vital signs: Vital Signs Temp 98.1 F 04/23/24 11:45 Pulse 61 04/23/24 11:45 Resp 16 04/23/24 11:45 BP 131/59 04/23/24 11:45 Pulse Ox 97 04/23/24 11:45 FiO2 40 04/14/24 16:00 Intake & Output 04/22/24 04/23/24 04/23/24 18:59 06:59 18:59 Intake Total 240 Output Total 300 425 Balance -300 -185 Weight 58.7 kg 61.5 kg Intake: Oral 240 Output: Urine 300 425 Other: Voiding Method Indwelling Catheter Indwelling Catheter Indwelling Catheter # Bowel Movements 1 ABP, PAP, CO, CI - Last Documented Arterial Blood Pressure 122/51 - Exam GENERAL DESCRIPTION: An elderly female lying in bed in no distress RESPIRATORY SYSTEM: Unlabored breathing , decreased breath sounds at bases HEART: S1 S2 regular rate and rhythm , ABDOMEN: Soft , mild tenderness EXTREMITIES: No edema feet - Labs CBC & Chem 7: 04/22/24 06:17 04/19/24 06:23 Labs: Microbiology - Last 24 Hours (Table) 04/20/24 11:30 Anaerobic Culture - Preliminary Abdomen 04/20/24 11:30 Gram Stain - Final Abdomen Wound Culture - Final Tracie albicans Assessment and Plan (1) Sepsis Current Visit: Yes Status: Acute Code(s): A41.9 - SEPSIS, UNSPECIFIED ORGANISM SNOMED Code(s): 51764272 (2) Peritonitis Current Visit: Yes Status: Acute Code(s): K65.9 - PERITONITIS, UNSPECIFIED SNOMED Code(s): 11237267 (3) Perforation of sigmoid colon due to diverticulitis Current Visit: Yes Status: Acute Priority: High Code(s): K57.20 - DVTRCLI OF LG INT W PERFORATION AND ABSCESS W/O BLEEDING SNOMED Code(s): 1870150605501132 Plan: 1patient presented to hospital with sepsis in this patient who did have hypotension tachycardia leukopenia meeting criteria for SIRS source is likely perforated sigmoid diverticulitis with peritonitis, we will need to cover for the enteric gram-negative both aerobes and anaerobes keeping in mind her history of metastatic rectal cancer chemo and has been out of the hospital need to cover for resistant gram-negative pathogen 2-penicillin allergy therapy limit the number of antibiotics safe to use 3-patient did have a CT with evidence of possible abdominal abscess status post IR drainage of the abscess on 04/22/2024 cultures obtained which are currently pending 4- patient will be treated with Eraxis, cefepime and Flagyl while waiting for cultures on the abscess fluid to be finalized to determine her discharge antibiotics Dictation was produced using [employer] dictation software. please excuse any grammatical, word or spelling errors. Time with Patient: Less than 30
--- NOTE | 2024-04-23 15:06 | P.PN ---
Subjective Progress Note Date: 04/22/24 Principal diagnosis: Reason for follow-up is parotitis perforated diverticulitis Patient is a 68-year-old female with a past medical history significant for hypertension osteoarthritis hypothyroidism, metastatic rectal cancer previous history of smoking presenting to the hospital for evaluation of abdominal pain, the patient CT has been suggestive of pneumoperitoneum with diagnosis of perforated sigmoid diverticulitis patient is status post laparotomy sigmoid resection and end colostomy. On today's evaluation that is Patient did have a CT-guided drainage of the a bdominal abscess completed on 04/22/2024 culture has been obtained. On today's visit that is 04/22/2024, the patient continues to be afebrile, the patient is on 2 L nasal oxygen and breathing comfortably, the Pt denies having any chest pain or cough, the patient abdominal pain is currently controlled no nausea no vomiting did have output in her colostomy. Patient white count is 11.0 Objective - Vital Signs Vital signs: Vital Signs Temp 99.9 F H 04/22/24 19:36 Pulse 95 04/22/24 19:36 Resp 18 04/22/24 19:36 BP 141/73 04/22/24 19:36 Pulse Ox 94 L 04/22/24 19:36 FiO2 40 04/14/24 16:00 Intake & Output 04/22/24 04/22/24 04/23/24 06:59 18:59 06:59 Intake Total 240 Output Total 1200 300 Balance -960 -300 Weight 58.7 kg Intake: Oral 240 Output: Urine 1200 300 Other: Voiding Method Indwelling Catheter Indwelling Catheter Indwelling Catheter # Bowel Movements 0 1 ABP, PAP, CO, CI - Last Documented Arterial Blood Pressure 122/51 - Exam GENERAL DESCRIPTION: An elderly female lying in bed in no distress RESPIRATORY SYSTEM: Unlabored breathing , decreased breath sounds at bases HEART: S1 S2 regular rate and rhythm , ABDOMEN: Soft , mild tenderness EXTREMITIES: No edema feet - Labs CBC & Chem 7: 04/22/24 06:17 04/19/24 06:23 Labs: Abnormal Lab Results - Last 24 Hours (Table) 04/22/24 Range/Units 06:17 WBC 11.0 H (3.8-10.6) k/uL RBC 3.26 L (3.80-5.40) m/uL Hgb 9.8 L (11.4-16.0) gm/dL Hct 29.8 L (34.0-46.0) % RDW 15.7 H (11.5-15.5) % Neutrophils # 9.3 H (1.3-7.7) k/uL Lymphocytes # 0.8 L (1.0-4.8) k/uL Microbiology - Last 24 Hours (Table) 04/20/24 11:30 Anaerobic Culture - Preliminary Abdomen 04/20/24 11:30 Gram Stain - Final Abdomen Wound Culture - Final Tracie albicans Assessment and Plan (1) Sepsis Current Visit: Yes Status: Acute Code(s): A41.9 - SEPSIS, UNSPECIFIED ORGANISM SNOMED Code(s): 49551820 (2) Peritonitis Current Visit: Yes Status: Acute Code(s): K65.9 - PERITONITIS, UNSPECIFIED SNOMED Code(s): 54505524 (3) Perforation of sigmoid colon due to diverticulitis Current Visit: Yes Status: Acute Priority: High Code(s): K57.20 - DVTRCLI OF LG INT W PERFORATION AND ABSCESS W/O BLEEDING SNOMED Code(s): 3289223333289276 Plan: 1patient presented to hospital with sepsis in this patient who did have hypotension tachycardia leukopenia meeting criteria for SIRS source is likely perforated sigmoid diverticulitis with peritonitis, we will need to cover for the enteric gram-negative both aerobes and anaerobes keeping in mind her history of metastatic rectal cancer chemo and has been out of the hospital need to cover for resistant gram-negative pathogen 2-penicillin allergy therapy limit the number of antibiotics safe to use 3-patient did have a CT with evidence of possible abdominal abscess status post IR drainage of the abscess on 04/22/2024 cultures obtained 4- patient currently on Eraxis, cefepime and Flagyl while waiting for cultures on the abscess fluid to be finalized Dictation was produced using [employer] dictation software. please excuse any grammatical, word or spelling errors. Time with Patient: Less than 30
--- NOTE | 2024-04-23 15:35 | P.PN ---
Subjective Pt seen and evaluated at bedside. Patietn tolerating diet, having ostomy function, admits to mild to moderate abdominal pain. Objective - Vital Signs Vital signs: Vital Signs Temp 98.1 F 04/23/24 11:45 Pulse 61 04/23/24 11:45 Resp 16 04/23/24 11:45 BP 131/59 04/23/24 11:45 Pulse Ox 97 04/23/24 11:45 FiO2 40 04/14/24 16:00 Intake & Output 04/22/24 04/23/24 04/23/24 18:59 06:59 18:59 Intake Total 240 200 Output Total 300 425 350 Balance -300 -185 -150 Weight 58.7 kg 61.5 kg Intake: IV 100 Cefepime 2 gm In Sodium 100 Chloride 0.9% 100 ml @ 25 mls/hr IVPB Q8HR [facility] Rx# :[id number] Intake, IV Titration 100 Amount Anidulafungin 100 mg In 100 Sodium Chloride 0.9% 100 ml @ 84 mls/hr IVPB DAILY [facility] Rx#:[id number] Oral 240 Output: Urine 300 425 350 Other: Voiding Method Indwelling Catheter Indwelling Catheter Indwelling Catheter # Bowel Movements 1 ABP, PAP, CO, CI - Last Documented Arterial Blood Pressure 122/51 - Exam gen: nad cv: rrr pul: non labored breathing abd: soft, non distended, tender to palpation, surgical incision with ryan c/d/i, ostomy pink/nice [place], bowel sweat - Labs CBC & Chem 7: 04/22/24 06:17 04/19/24 06:23 Labs: Microbiology - Last 24 Hours (Table) 04/20/24 11:30 Anaerobic Culture - Preliminary Abdomen Assessment and Plan Assessment: IR drain placed continue current diet monitor for abdominal pain and distention Time with Patient: Less than 30
[2024-04-23] MEDS: HYDROcodone/APAP 7.5-325MG 1 EACH TAB PO PRN (16:18)
[2024-04-24 06:35] LABS: Basophils % (A) 0 %; Eosinophils % (A) 0 %; HCT 29.1 % (34.0-46.0); HGB 9.6 gm/dL (11.4-16.0); Lymphocytes # (A) 0.7 k/uL (1.0-4.8); Lymphocytes % (A) 8 %; MCH 30.2 pg (25.0-35.0); MCHC 32.8 g/dL (31.0-37.0); Mean Platelet Volume 7.6; Monocytes # (A) 0.7 k/uL (0-1.0); Monocytes % (A) 9 %; Neutrophils # (A) 6.4 k/uL (1.3-7.7); Neutrophils % (A) 81 %; Platelet Count 243 k/uL (150-450); RBC 3.16 m/uL (3.80-5.40); RDW 15.9 % (11.5-15.5); WBC 7.9 k/uL (3.8-10.6)
[2024-04-24 06:56] LABS: ALT 14 U/L (4-34); AST 42 U/L (14-36); African American GFR (CKD) >90 (>60 ml/min/1.73 sqM); Albumin 1.8 g/dL (3.5-5.0); Alkaline Phosphatase 151 U/L (38-126); Anion Gap -2 mmol/L; Blood Urea Nitrogen 15 mg/dL (7-17); Calcium 7.9 mg/dL (8.4-10.2); Carbon Dioxide 34 mmol/L (22-30); Chloride 98 mmol/L (98-107); Glucose 108 mg/dL (74-99); Non-African American GFR(CKD) >90 (>60 ml/min/1.73 sqM); Potassium 3.3 mmol/L (3.5-5.1); Sodium 130 mmol/L (137-145); Total Bilirubin 0.2 mg/dL (0.2-1.3); Total Protein 4.2 g/dL (6.3-8.2)
--- NOTE | 2024-04-24 12:31 | P.PN ---
Subjective Progress Note Date: 04/24/24 This is a 68-year-old female with history of metastatic rectal cancer presented to the ER 04/10 mostly with abdominal pain. Patient has been receiving chemotherapy for her rectal cancer, her first treatment was March 29. Patient has not been feeling well since March 29, presented to the ER with f ew days history of abdominal pain, lower abdominal pain. Patient had some nausea, no vomiting. No bowel movement for the few days, patient noted no fever, no chills, CT of the abdomen pelvis showed pneumoperitoneum and possible perforation of the ascending colon. Patient underwent exploratory laparotomy sigmoid colon resection with end colostomy. Patient was found to have perforated diverticulitis of the sigmoid colon. Postoperatively, patient was sent to the ICU, intubated mechanically ventilated, she is presently on assist- control rate of 16, tidal volume increased to 350, FiO2 100% and PEEP of 5. ABG on FiO2 of 100% showed a pO2 of 392, pCO2 of 53 pH of 7.35, hence vent adjustment was made and she was on FiO2 of 40%, rate of 16, and tidal volume of 350. Patient is hemodynamically stable, not requiring any pressors, she is however requiring fluids for relatively marginal blood pressure and tachycardia. Her electrolytes showed low potassium of 3.0 that is being addressed accor dingly bicarb is 27 renal profile is normal WBC count is 1.4 hemoglobin 13.8. Her WBC count on admission was 7.5 dropped down significantly to 1.4. Antibiotics miranda, patient received cefepime, she is also on metronidazole, patient could not be placed on Zosyn mostly because of her penicillin allergy. On her initial presentation she received Levaquin she also received a Rocephin. 04/11/2024 patient seen and examined at bedside. Patient still in the ICU intubated, sedated and mechanically ventilated. Ventilator settings are assist- control with a rate of 16, tidal volume 350, PEEP of 5 with FiO2 40%. No acute events overnight. Currently drips are normal saline 0.9% with a rate of 130 cc /h, propofol with a rate of 40 and Levophed of 0.02 mcg/kg/min. Chest x-ray shows atelectasis at the right lung base with ET tube, NG tube, and central venous catheters in place. ABG Shows CO2 22, CO2 41 and pH of 7.36. Other labs today show WBC 4.3, hemoglobin 11.5, platelet count 1 59,000, sodium 134, potassium 4.2 BUN 16, creatinine 0.58 glucose 102, calcium 7.6, phosphorus 3, magnesium 2.1 04/12/2024 patient seen and examined at bedside. Patient still in the ICU and was extubated around 11 AM yesterday at 04/11. Overnight, patient had an episode of A-fib with rapid ventricular response with associated hypotension. Currently on IV fluids normal saline at 100 cc, amiodarone IV at 0.5 mg/min, heparin drip at 12 units/kg/h, and Cardizem drip at 1 mg/h. Chest x-ray today shows mild atelectatic type changes at the left base with central venous catheter, NG tube in place. Labs today showed WBC 9.9 hemoglobin 10.4 platelet count 190,000 PTT 36.1 PTT 12.1 INR 1.1 sodium 137 potassium 3.3 chloride 112 bicarb 21 BUN 18 creatinine 0.62 glucose 100 calcium 8.4 magnesium 2.1 04/13/2024 patient seen and examined at bedside. No acute events overnight. Postop exploratory laparotomy and sigmoid colon resection with end colostomy day 3. Currently on IV fluids normal saline at 100 cc, amiodarone IV at 0.5 mg/min and heparin drip at 12 units/kg/h. On day 4 of metronidazole IV and cefepime IV. Chest x-ray showed interval development of some mild infiltrate at the right base which is likely atelectasis with small left pleural effusion and NG tube and central venous catheter and port catheter seen and in place. Labs today show WBC 12.4, hemoglobin 10.1, platelet count 1 93,000 PTT 49.9, sodium 136, potassium 4, bicarb 18, BUN 19, creatinine 0.46, glucose 90, calcium 8.7. TSH less than 0.0 15 Free T41.72. Echocardiogram showed hyperdynamic LV, EF 60%, concerns of concentric LVH with mid ventricular obstruction with elevated gradients with peak gradients more than 100 mmHg, systolic anterior motion of mitral valve with moderate MR. 04/14/2024 patient seen and examined at bedside. No acute events overnight. Postop exploratory laparotomy and sigmoid colon resection with end colostomy day 4. Currently on IV fluids lactated Ringer's at 50 cc/h, and heparin 12 units/k g/h. On day 5, metronidazole IV and cefepime IV. Labs today show WBC 10.2, hemoglobin 10.2, platelet count 190,000 PTT 44.4, sodium 136, potassium 3.7, chloride 109, bicarb 21, BUN 18, creatinine 0.43, glucose 71, calcium 8.6 04/15/2024 patient seen and examined at bedside. No acute events overnight. NG tube removed. Patient started on clear liquid diet yesterday. Postop exploratory laparotomy and sigmoid colon resection with end colostomy day 5. Currently on IV fluids lactated Ringer's at 50 cc/h. Labs today show WBC 10.2, hemoglobin 10.5, platelet count 1 75,000, PTT 53.7, sodium 135, potassium 3.7, bicarb 23, chloride 107, BUN 18, creatinine 0.39, glucose 106, calcium 8.5 Progress note dated April 16, 2024. This is a 68-year-old female with history of postoperative day #6, status post exploratory laparotomy and sigmoid colon resection, with end colostomy. The patient was transferred out of the intensive care unit. The patient is doing very well. She is seen today in room 354. She is on room air. She is not receiving any IV fluids. NG tube has been removed. Current labs include a white count 15.2, hemoglobin 10.2, hematocrit 30.5, and a normal platelet count. Sodium 136, potassium 3.6, chlorides 107, CO2 26, BUN 16, creatinine 0.4. Glucose is 110. Calcium is 8.4. Progress note dated April 17, 2024. 68-year-old female with a history of postoperative day #7, status post exploratory laparotomy sigmoid colon resection with end colostomy. The patient was transferred out of the intensive care unit, a few days ago. Clinically she is doing well. She is currently on room air. No IV fluids. NG tube has been removed. She is taking nutrition by mouth. She has no specific complaints today. The only blood work today is a glucose of 123. On 04/18/2024, the patient is being seen for a follow-up. The patient is postop day #8 following a expiratory laparotomy and sigmoid resection with end colostomy. Surgical wound site is dry clean and intact. Ryan are in place. Colostomy site is functional. No significant nausea vomiting or abdominal pain. The patient is tolerating diet at this point in time. She has increased edema in all 4 extremities. She is currently on room air oxygen. The patient denies having any significant shortness of breath. She is on room air oxygen with a pulse ox of 97%. The white cell count of 18 with a hemoglobin of 10 and a platelet count of 182. BUN is 13 with a creatinine of 0.4 and a sodium levels at 133 and a potassium level is at 3.1. Noted the patient also has history of metastatic rectal cancer being treated with chemotherapy on outpatient basis. She is status post sigmoid resection for a perforated diverticulitis of the sigmoid colon. She is also post respiratory failure requiring intubation mechanical ventilation. Antibiotic coverage includes IV cefepime for now. She is on [employer] for pain control. Blood cultures are negative. She is awake and alert and she is also communicating. Complaining of extensive weakness and profound edema in all 4 extremities. She is known to have hypoproteinemia and hypoalbuminemia. She is also on anticoagulation with Eliquis 5 mg p.o. twice daily regarding atrial fibrillation. On 04/19/2024 patient is being seen for a follow-up. Patient is postop day #9. The patient underwent a sigmoid resection and end colostomy. Colostomy is still functional and the patient is tolerating her diet. The patient was complaining of some ongoing nausea and based on that, a CAT scan of the abdomen and pelvis was obtained on 04/18/2024 and the CAT scan showed postsurgical changes in the left lower quadrant ostomy. There was trace pneumoperitoneum and small volume ascites throughout the abdomen and pelvis. There was also an organized fluid collection in the left pelvic area measuring up to 4.1 cm in size and this was concerning for an underlying abscess formation. Additional organized fluid collection in the perihepatic region was also seen concerning for abscess and the patient continued to have diffuse anasarca with moderate right-sided pleural effusion and small left-sided pleural effusion. General surgery is on the case and interventional radiology was consulted for possible drainage of the fluid collection. Meanwhile, the patient remains on a combination of cefepime and Eraxis. The patient was reporting significant edema in all 4 extremities and the patient was given Lasix and the patient is currently in negative fluid balance of 1.4 L over the past 24 hours. Continues to have edema and based on that we will maintain the patient on Lasix 20 mg IV every 12 hours. Respiratory status is stable. The patient is currently on room air oxygen with a pulse ox of 98%. General surgery and infectious diseases are both on the case. Noted the patient does not have any significant nausea or emesis and she is feeling well. The white cell count is 16.1 with a hemoglobin 9.7 and a platelet count of 2 8. BUN 50 with a creatinine of 0.4. 04/20/2024, the patient is awake and alert and communicating. She is on room air oxygen. Unfortunately, intra-abdominal abscesses were notified and the patient is awaiting interventional radiology to drain the intra-abdominal abscesses. Meanwhile, the surgical wound was inspected today and there is leakage of purulent material in the mid incision and based on that 2 of the ryan were removed. The drainage is minimal yet is present. At the same time, the patient has a function ostomy. Another pustular collection was noted over the anterior chest area. The patient is afebrile. Hemodynamically stable. White cell count of 15 with a hemoglobin of 9.9 and a platelet count of 224. Antibiotic coverage remains unchanged and the patient remains on a combination of cefepime and Eraxis. On a separate note, the patient was being diuresed with IV Lasix. The patient remains on Lasix 20 mg IV every 12 hours. She had diffuse anasarca and third spacing and the patient remains in negative fluid balance of 1.9 L over the past 24 hours. The electrolytes are being monitored. The patient is postop day #10 following expect laparotomy and sigmoid colectomy and colostomy for perforated diverticulitis. As mentioned, CAT scan of the abdomen and pelvis showed 2 areas of fluid collection, possibly an abscess formation.. On 04/21/2024, the patient remains on room air oxygen. No new complaints for now. No active drainage from the surgical wound site. Colostomy is functional. The patient is awaiting a IR guided drainage of the abdominal/pelvic fluid collection/abscesses. The patient remains on IV cefepime and Eraxis. Currently off diuretics. White cell count is 15 with a hemoglobin 9.9 and a platelet count of 224. Procalcitonin level level was at 0.5. No nausea. No emesis. T he patient is postop day #11 following exploratory laparotomy and sigmoid colectomy and end colostomy for a perforated diverticulitis. She is also known to have metastatic rectal cancer. Her appetite is down. She is supplementing diet with some Ensure. No others significant events overnight. Overall condition remains stable. 04/22/2024, the patient is being seen for a follow-up. Resting comfortably in bed. The patient is going to undergo a percutaneous drainage of the pelvic/abdominal fluid collection/abscesses. Surgical wound site is dry clean and intact. She is on room air oxygen. She remains on broad-spectrum antibiotics including Eraxis and cefepime. No active drainage from the abdominal wound. The white cell count is 11 with a hemoglobin 9.8 and a platelet count of 251. Her colostomy is functional. Her procalcitonin level is at 0.5. Awake and alert and communicating. On 04/23/2024, the patient is status post drainage of the pelvic/abdominal fluid and output from the drainage has been minimal at this point in time. Surgical wound site is dry clean and intact and there is no active drainage. No fever. Remains on room air oxygen. No significant leukocytosis. White cell count is 11. Procalcitonin level is at 0.5 from 04/20/2024. The patient remains on Eraxis and cefepime. Colostomy is functional. She denies having any new complaints. Hemoglobin is at 9.8 On 04/24/2024, the patient is being seen for a follow-up. No active drainage from the abdominal percutaneous catheter. Remains on cefepime. Remains on Eraxis. Colostomy is functioning. Surgical wound site is dry clean and intact. White cell count 7.9 with a hemoglobin 9.6 and a platelet count of 243. Electrolytes are stable. BUN is 15 with a creatinine of 0.5. The patient is on room air oxygen. Denies having any significant shortness of breath. Overall, she remains quite weak and debilitated. Objective - Vital Signs Vital signs: Vital Signs Temp 97.3 F L 04/24/24 07:24 Pulse 77 04/24/24 07:24 Resp 18 04/24/24 07:24 BP 151/84 04/24/24 07:24 Pulse Ox 96 04/24/24 07:24 FiO2 40 04/14/24 16:00 Intake & Output 04/23/24 04/24/24 04/24/24 18:59 06:59 18:59 Intake Total 200 573 Output Total 350 600 Balance -150 -600 573 Weight 63 kg Intake: IV 100 Cefepime 2 gm In Sodium 100 Chloride 0.9% 100 ml @ 25 mls/hr IVPB Q8HR [facility] Rx# :[id number] Intake, IV Titration 100 Amount Anidulafungin 100 mg In 100 Sodium Chloride 0.9% 100 ml @ 84 mls/hr IVPB DAILY [facility] Rx#:[id number] Oral 573 Output: Urine 350 600 Other: Voiding Method Indwelling Catheter Indwelling Catheter # Bowel Movements 1 ABP, PAP, CO, CI - Last Documented Arterial Blood Pressure 122/51 - Exam No acute distress, oriented 3. Currently on room air. HEENT examination is grossly unremarkable. Mucous membranes are moist. No oral lesions. Neck supple. Full range of motion. No adenopathy thyromegaly or neck vein distention. Cardiovascular examination reveals regular rhythm rate. S1-S2 normal. No S3 or S4. No discernible murmur noted. Subcutaneous abscess was noted over the anterior chest measuring around 2 cm in size that needs to be further incised and drained. Lungs reveal mostly clear breath sounds. Minimal scattered rhonchi. No wheezes or crackles. Breath sounds equal bilaterally. Abdomen with occasional bowel sounds. Colostomy is noted. The colostomy is functioning the surgical wound site over the mid abdomen is showing some purulent drainage at the level of the mid incision and 2 of the ryan were removed. The rest of ryan are still in place. The patient also has a drainage tube with no output. Extremities are intact. No cyanosis clubbing positive +1-2 edema in all 4 extremities mainly in the lower extremities bilaterally. Skin is without rash or lesion. Neurologic examination is brief but nonfocal. - Labs CBC & Chem 7: 04/24/24 05:51 04/24/24 05:51 Labs: Abnormal Lab Results - Last 24 Hours (Table) 04/24/24 04/24/24 Range/Units 05:51 05:51 RBC 3.16 L (3.80-5.40) m/uL Hgb 9.6 L (11.4-16.0) gm/dL Hct 29.1 L (34.0-46.0) % RDW 15.9 H (11.5-15.5) % Lymphocytes # 0.7 L (1.0-4.8) k/uL Sodium 130 L (137-145) mmol/L Potassium 3.3 L (3.5-5.1) mmol/L Carbon Dioxide 34 H (22-30) mmol/L Glucose 108 H (74-99) mg/dL Calcium 7.9 L (8.4-10.2) mg/dL AST 42 H (14-36) U/L Alkaline Phosphatase 151 H (38-126) U/L Total Protein 4.2 L (6.3-8.2) g/dL Albumin 1.8 L (3.5-5.0) g/dL Microbiology - Last 24 Hours (Table) 04/22/24 12:30 Gram Stain - Preliminary Peritoneal Fluid Body Fluid Culture - Preliminary Assessment and Plan Plan: Postoperative day # 14 status post exploratory laparotomy, sigmoid colon resection with end colostomy. Surgery was done for pneumoperitoneum and the patient was found to have a perforated sigmoid diverticulitis status post sigmoid colectomy and end colostomy. Patient is tolerating diet. Colostomy is functional. Surgical wound site dry clean and intact. A follow-up CAT scan of the abdomen and pelvis from 04/18/2024 showed Fluids collection/organized fluid versus abscess measuring 4.1 cm in the left pelvic area concerning for abscess. Additional organized fluid collection in the perihepatic region was also seen. Interventional radiology was consulted for possible drainage. General surgery is on the case. Infectious disease on the case. The patient remains on a combination of Eraxis and cefepime. The patient has no active drainage from the surgical wound site and the patient underwent a percutaneous drainage of the abdominal fluid collection. Output is minimal at this point in time. Surgical wound site is dry clean and intact. Colostomy is functional. Anterior chest subcutaneous abscess Diffuse anasarca secondary to hypoproteinemia and hypoalbuminemia and the patient's albumin level is at 1.7, currently off Lasix Bilateral pleural effusion Acute hypoxic respiratory failure, improved and the patient is currently on room air oxygen Paroxysmal atrial fibrillation, maintained on amiodarone and metoprolol. The patient is currently in normal sinus mechanism. Hypertension. Pneumoperitoneum, a result of the exploratory laparotomy. Acute hypoxemic respiratory failure, resolved. Patient is currently on room air oxygen Abdominal sepsis, resolved. Remains on IV cefepime and blood cultures negative Lactic acidosis, resolved. History of metastatic rectal carcinoma. History of hypertrophic obstructive cardiomyopathy. Hyperproteinemia Lower extremity edema Plan: Continue using incentive spirometer Continue IV cefepime and Eraxis Advance diet as tolerated Abdominal drainage catheter was inserted, output is minimal at this point in time. Almost done over the past 24 hours colostomy is functional Surgical wound site is dry. Monitor serum protein and albumin levels Labs were noted, potassium needs to be replaced Continue amiodarone 200 mg p.o. twice daily and metoprolol 50 mg p.o. twice daily, anticoagulation has been held Pain control with [employer] Continue Cozaar Continue IV Protonix Patient remains on room air oxygen Quite debilitated and weak Pulmonary critical care services will sign off.
--- NOTE | 2024-04-24 13:06 | P.PN ---
Subjective Progress Note Date: 04/24/24 patient is a 68-year-old lady with past medical history significant for metastatic rectal cancer brought to the ER for evaluation of lower abdominal pain. Patient that she has been not been feeling well for the last few days. Patient stated that she was having lower quad abdominal pain which was generali zed, nonradiating, no aggravating or leaving factors associated abdominal pain. Patient also complaining of constipation and has not had a bowel movement in a number of days. There was no complaint of fever or chills. There was complaint of nausea but no vomiting. Patient stated she recently started chemotherapy. Because of these symptoms, patient presented to the ER Initial lab work done in the ER showed WBC 7.5, hemoglobin 9.5, platelet count 335, sodium 130, potassium 3, BUN 14, creatinine 0.53, lactate 4.5 EKG done in the ER showed heart rate of 116 , no ST segment elevation or depres stefania seen, no T-wave inversions seen. CT abdominal pelvis done showed large pneumoperitoneum, mild circumferential wall thickening of a short segment of ascending colon and proximal sigmoid colon in associated with diverticula suggest diverticulitis versus colitis Patient admitted to internal medicine service 04/11. Patient seen and examined. Patient currently intubated, opening eyes and following commands. 04/12. Patient seen examined. Patient is currently extubated. Alert, currently has NG tube in. Lab work done this morning showed WBC 9.9, hemoglobin 10.4, platelet count 190, sodium 137, potassium 3.3, BUN 18, creatinine 0.62, glucose 100. Patient went to [facility] overnight, currently on amiodarone. 04/13. Patient seen and examined. CurrentlyLaying in the chair. Still has NG tube in. Stated pain has slightly improved. Currently on IV amiodarone, heparin. 04/14. Patient seen examined. States she feels better. Patient started on clear liquid diet . Blood work done this morning showed WBC 10.2, hemoglobin 9.2, platelet count 190, sodium 137 potassium 3.7, BUN 18, creatinine 0.43. Patient currently on oral amiodarone and IV heparin 04/15. Patient seen and examined. Patient transferred out of ICU 04/16. Patient seen and examined. Blood work done this morning showed WBC 15.2, hemoglobin 10.2, sodium 136, potassium 3.6, BUN 16, creatinine 0.40. 04/17. Patient seen and examined. Complaining of nausea, poor appetite. 04/18 Patient still complains from abdominal pain about / Colostomy bag in the left lower quadrant is working She ate little bit. Currently she is on regular diet She has central vertical abdominal wound with dressing in place Ritchie catheter in place 04/19 Patient awake and alert, no vomiting, she tolerates liquid diet only Abdominal pain is ongoing and does not look significant worsening Left lower quadrant colostomy bag is in place with brown stool which looks somewhat loose but not watery. Repeat CT of the abdomen and pelvis yesterday showing organized fluid collection in the left pelvis about 4.1 cm suspicious for an abscess and another 1 in the perihepatic area. I reviewed the CAT scan by myself and agree Patient continued on cefepime and Eraxis was added as well Patient also on Eliquis for A-fib 04/20 Patient is still have nonspecific GI symptoms, her abdominal pain is expected No overt nausea vomiting but she has poor appetite, patient was encouraged to eat and drink more and she agrees Colostomy bag is working with brown stool with no issues for now. Her leukocytosis improving slowly gradually down to 15,000, she kept on Eliquis Antibiotics with cefepime and Eraxis was added yesterday 04/21 Patient is picking up on her diet and eating more and more every day Abdominal pain controlled Colostomy bag had small hard bowel movement today. Recent CAT scan showing pelvic abscess and perihepatic abscess, surgery team discussed the case with IR and plan for placement of a drain into the perihepatic abscess but not the pelvic abscess as it is small. The recommendation continue medical treatment for the pelvic abscess. Leukocytosis slightly trending down. Patient remains on IV cefepime and Eraxis. As per general surgery Eliquis was held for her A-fib therefore we put her on therapeutic dose of Lovenox with recommendation to hold it tonight and tomorrow till cleared by the surgeon for the procedure 04/22. Patient seen and examined. Currently n.p.o., going for IR guided drain placement. States she does not feel well. Complaining of lethargy and weakness 04/23. Patient seen and examined. Patient had IR guided drain placed yesterday. States she feels better. Denies any abdominal pain. Denies nausea or vomiting. Has ostomy output. 04/24. Patient seen and examined. States she feels better. Still having abdominal pain. Still has ostomy output. Blood work done showed WBC 7.9, hem oglobin 9.6, platelet count 243, sodium 130, potassium 3.3, BUN 15, creatinine 0.52 REVIEW OF SYSTEMS: Denies any chest pain. Denies any fever or chills PHYSICAL EXAMINATION: GENERAL: The patient is alert HEENT: Pupils are round and equally reacting to light. EOMI. No scleral icterus. No conjunctival pallor. Normocephalic, atraumatic. No pharyngeal erythema. No thyromegaly. CARDIOVASCULAR: S1 and S2 present. No murmurs, rubs, or gallops. PULMONARY: Chest is clear to auscultation, no wheezing or crackles. ABDOMEN: Tenderness, surgical incision seen, ostomy seen no palpable organomegaly. MUSCULOSKELETAL: No joint swelling or deformity. EXTREMITIES: No cyanosis, clubbing, or pedal edema. NEUROLOGICAL: Moving all extremities SKIN: No rashes. Assessment and plan Pneumoperitoneum, status post exploratory laparotomy and sigmoid colon resection with end colostomy Repeat CAT scan on 04/18 showing possible left pelvic abscess 4.1 cm and smaller perihepatic abscess Sepsis A-fib with RVR Acute hypoxic respiratory failure Acute sigmoid colon perforation Acute diverticulitis Hyponatremia Hypokalemia Lactic acidosis History of rectal cancer Monitor vital signs Monitor CBC Monitor CMP Continue telemetry monitoring status post exploratory laparotomy and sigmoid colon resection with end colostomy Repeat CAT scan on 04/18 showing possible left pelvic abscess 4.1 cm and smaller perihepatic abscess Aggressive bronchopulmonary hygiene Continue IV Eraxis, cefepime and Flagyl Continue Lovenox Status post drain placement by IR on 04/22 Pulmonology following Surgery following ID following Labs and medication were reviewed.. Continue same treatment. Continue with symptomatic treatment. Resume home medication. Monitor labs and vitals. DVT and GI prophylaxis. Further recommendations as per clinical course of the patient Dictation was produced using [email or web address] dictation software. please excuse any grammatical, word or spelling errors. Objective - Vital Signs Vital signs: Vital Signs Temp 97.3 F L 04/24/24 07:24 Pulse 77 04/24/24 07:24 Resp 18 04/24/24 07:24 BP 151/84 04/24/24 07:24 Pulse Ox 96 04/24/24 07:24 FiO2 40 04/14/24 16:00 Intake & Output 04/23/24 04/24/24 04/24/24 18:59 06:59 18:59 Intake Total 200 573 Output Total 350 600 Balance -150 -600 573 Weight 63 kg Intake: IV 100 Cefepime 2 gm In Sodium 100 Chloride 0.9% 100 ml @ 25 mls/hr IVPB Q8HR [facility] Rx# :[id number] Intake, IV Titration 100 Amount Anidulafungin 100 mg In 100 Sodium Chloride 0.9% 100 ml @ 84 mls/hr IVPB DAILY [facility] Rx#:[id number] Oral 573 Output: Urine 350 600 Other: Voiding Method Indwelling Catheter Indwelling Catheter # Bowel Movements 1 ABP, PAP, CO, CI - Last Documented Arterial Blood Pressure 122/51 - Labs CBC & Chem 7: 04/24/24 05:51 04/24/24 05:51 Labs: Abnormal Lab Results - Last 24 Hours (Table) 04/24/24 04/24/24 Range/Units 05:51 05:51 RBC 3.16 L (3.80-5.40) m/uL Hgb 9.6 L (11.4-16.0) gm/dL Hct 29.1 L (34.0-46.0) % RDW 15.9 H (11.5-15.5) % Lymphocytes # 0.7 L (1.0-4.8) k/uL Sodium 130 L (137-145) mmol/L Potassium 3.3 L (3.5-5.1) mmol/L Carbon Dioxide 34 H (22-30) mmol/L Glucose 108 H (74-99) mg/dL Calcium 7.9 L (8.4-10.2) mg/dL AST 42 H (14-36) U/L Alkaline Phosphatase 151 H (38-126) U/L Total Protein 4.2 L (6.3-8.2) g/dL Albumin 1.8 L (3.5-5.0) g/dL Microbiology - Last 24 Hours (Table) 04/22/24 12:30 Gram Stain - Preliminary Peritoneal Fluid Body Fluid Culture - Preliminary
--- NOTE | 2024-04-24 13:26 | P.PN ---
Subjective Progress Note Date: 04/24/24 Principal diagnosis: Reason for follow-up is parotitis perforated diverticulitis Patient is a 68-year-old female with a past medical history significant for hypertension osteoarthritis hypothyroidism, metastatic rectal cancer previous history of smoking presenting to the hospital for evaluation of abdominal pain, the patient CT has been suggestive of pneumoperitoneum with diagnosis of perforated sigmoid diverticulitis patient is status post laparotomy sigmoid resection and end colostomy. Patient did have a CT-guided drainage of the abdominal abscess completed on 04/22/2024 culture has been obtained. On today's visit that is 04/24/2024, Patient is afebrile patient is currently on room air and denies having any shortness of breath, the patient denies any chest pain or cough, the patient did have some nausea but no vomiting abdominal pain is currently controlled patient white count and colostomy. The patient white count normalized to 7.[address]-guided fluid culture currently pending Objective - Vital Signs Vital signs: Vital Signs Temp 97.3 F L 04/24/24 07:24 Pulse 77 04/24/24 07:24 Resp 18 04/24/24 07:24 BP 151/84 04/24/24 07:24 Pulse Ox 96 04/24/24 07:24 FiO2 40 04/14/24 16:00 Intake & Output 04/23/24 04/24/24 04/24/24 18:59 06:59 18:59 Intake Total 200 810 Output Total 350 600 250 Balance -150 -600 560 Weight 63 kg Intake: IV 100 Cefepime 2 gm In Sodium 100 Chloride 0.9% 100 ml @ 25 mls/hr IVPB Q8HR [facility] Rx# :[id number] Intake, IV Titration 100 Amount Anidulafungin 100 mg In 100 Sodium Chloride 0.9% 100 ml @ 84 mls/hr IVPB DAILY [facility] Rx#:[id number] Oral 810 Output: Urine 350 600 250 Other: Voiding Method Indwelling Catheter Indwelling Catheter Indwelling Catheter # Bowel Movements 1 ABP, PAP, CO, CI - Last Documented Arterial Blood Pressure 122/51 - Exam GENERAL DESCRIPTION: An elderly female lying in bed in no distress RESPIRATORY SYSTEM: Unlabored breathing , decreased breath sounds at bases HEART: S1 S2 regular rate and rhythm , ABDOMEN: Soft , mild tenderness EXTREMITIES: No edema feet - Labs CBC & Chem 7: 04/24/24 05:51 04/24/24 05:51 Labs: Abnormal Lab Results - Last 24 Hours (Table) 04/24/24 04/24/24 Range/Units 05:51 05:51 RBC 3.16 L (3.80-5.40) m/uL Hgb 9.6 L (11.4-16.0) gm/dL Hct 29.1 L (34.0-46.0) % RDW 15.9 H (11.5-15.5) % Lymphocytes # 0.7 L (1.0-4.8) k/uL Sodium 130 L (137-145) mmol/L Potassium 3.3 L (3.5-5.1) mmol/L Carbon Dioxide 34 H (22-30) mmol/L Glucose 108 H (74-99) mg/dL Calcium 7.9 L (8.4-10.2) mg/dL AST 42 H (14-36) U/L Alkaline Phosphatase 151 H (38-126) U/L Total Protein 4.2 L (6.3-8.2) g/dL Albumin 1.8 L (3.5-5.0) g/dL Microbiology - Last 24 Hours (Table) 04/20/24 11:30 Anaerobic Culture - Final Abdomen 04/22/24 12:30 Gram Stain - Preliminary Peritoneal Fluid Body Fluid Culture - Preliminary Assessment and Plan (1) Sepsis Current Visit: Yes Status: Acute Code(s): A41.9 - SEPSIS, UNSPECIFIED ORGANISM SNOMED Code(s): 99516599 (2) Peritonitis Current Visit: Yes Status: Acute Code(s): K65.9 - PERITONITIS, UNSPECIFIED SNOMED Code(s): 33425108 (3) Perforation of sigmoid colon due to diverticulitis Current Visit: Yes Status: Acute Priority: High Code(s): K57.20 - DVTRCLI OF LG INT W PERFORATION AND ABSCESS W/O BLEEDING SNOMED Code(s): 9221430292434672 Plan: 1patient presented to hospital with sepsis in this patient who did have hypotension tachycardia leukopenia meeting criteria for SIRS source is likely perforated sigmoid diverticulitis with peritonitis, we will need to cover for the enteric gram-negative both aerobes and anaerobes keeping in mind her history of metastatic rectal cancer chemo and has been out of the hospital need to cover for resistant gram-negative pathogen 2-penicillin allergy therapy limit the number of antibiotics safe to use 3-patient did have evidence of intra abdominal abscess status post IR drainage of the abscess on 04/22/2024 cultures obtained which are currently pending 4- patient is afebrile patient white count has normalized we will treat with Eraxis, cefepime and Flagyl while waiting for cultures on the abscess fluid to be finalized to determine her discharge antibiotics, question concern answered Dictation was produced using [employer] dictation software. please excuse any grammatical, word or spelling errors. Time with Patient: Less than 30
[2024-04-24] MEDS ORDERED: Potassium Replacement Protocol 1 EACH MISC MISCELLANE PRN (18:40)
[2024-04-24] MEDS: POTASSIUM CHLORIDE ER 20 MEQ TAB.ER PO SCH (18:56)
--- NOTE | 2024-04-24 22:20 | P.PN ---
Subjective Pt seen and evaluated at bedside. Patietn tolerating diet, having ostomy function, admits to mild to moderate abdominal pain. Objective - Vital Signs Vital signs: Vital Signs Temp 98.1 F 04/24/24 15:13 Pulse 63 04/24/24 15:13 Resp 16 04/24/24 15:13 BP 134/67 04/24/24 15:13 Pulse Ox 96 04/24/24 15:13 FiO2 40 04/14/24 16:00 Intake & Output 04/24/24 04/24/24 04/25/24 06:59 18:59 06:59 Intake Total 1247 Output Total 600 650 Balance -600 597 Weight 63 kg Intake: IV 100 Cefepime 2 gm In Sodium 100 Chloride 0.9% 100 ml @ 25 mls/hr IVPB Q8HR [facility] Rx# :[id number] Intake, IV Titration 100 Amount Anidulafungin 100 mg In 100 Sodium Chloride 0.9% 100 ml @ 84 mls/hr IVPB DAILY [facility] Rx#:[id number] Oral 1047 Output: Urine 600 250 Stool 400 Other: Voiding Method Indwelling Catheter Indwelling Catheter ABP, PAP, CO, CI - Last Documented Arterial Blood Pressure 122/51 - Exam gen: nad cv: rrr pul: non labored breathing abd: soft, non distended, tender to palpation, surgical incision with ryan c/d/i, ostomy pink/nice [place], appropriate bowel function - Labs CBC & Chem 7: 04/24/24 05:51 04/24/24 05:51 Labs: Abnormal Lab Results - Last 24 Hours (Table) 04/24/24 04/24/24 Range/Units 05:51 05:51 RBC 3.16 L (3.80-5.40) m/uL Hgb 9.6 L (11.4-16.0) gm/dL Hct 29.1 L (34.0-46.0) % RDW 15.9 H (11.5-15.5) % Lymphocytes # 0.7 L (1.0-4.8) k/uL Sodium 130 L (137-145) mmol/L Potassium 3.3 L (3.5-5.1) mmol/L Carbon Dioxide 34 H (22-30) mmol/L Glucose 108 H (74-99) mg/dL Calcium 7.9 L (8.4-10.2) mg/dL AST 42 H (14-36) U/L Alkaline Phosphatase 151 H (38-126) U/L Total Protein 4.2 L (6.3-8.2) g/dL Albumin 1.8 L (3.5-5.0) g/dL Microbiology - Last 24 Hours (Table) 04/22/24 12:30 Anaerobic Culture - Preliminary Other - Other 04/22/24 12:30 Gram Stain - Preliminary Peritoneal Fluid Body Fluid Culture - Preliminary 04/20/24 11:30 Anaerobic Culture - Final Abdomen Assessment and Plan Assessment: 68 yo female s/p ascencion's IR drain placed wbc trending down continue current diet discharge planning, looking to discharge patient within the next 24-48 hrs
--- NOTE | 2024-04-25 16:21 | P.PN ---
Subjective Progress Note Date: 04/25/24 Principal diagnosis: Status post exploratory laparotomy and sigmoid colon resection with colostomy On 04/21/2024, the patient remains on room air oxygen. No new complaints for now. No active drainage from the surgical wound site. Colostomy is functional. The patient is awaiting a IR guided drainage of the abdominal/pelvic fluid collection/abscesses. The patient remains on IV cefepime and Eraxis. Currently off diuretics. White cell count is 15 with a hemoglobin 9.9 and a platelet count of 224. Procalcitonin level level was at 0.5. No nausea. No emesis. The patient is postop day #11 following exploratory laparotomy and sigmoid colectomy and end colostomy for a perforated diverticulitis. She is also known to have metastatic rectal cancer. Her appetite is down. She is supplementing diet with some Ensure. No others significant events overnight. Overall con dition remains stable. 04/22/2024, the patient is being seen for a follow-up. Resting comfortably in bed. The patient is going to undergo a percutaneous drainage of the pelvic/abdominal fluid collection/abscesses. Surgical wound site is dry clean and intact. She is on room air oxygen. She remains on broad-spectrum antibiotics including Eraxis and cefepime. No active drainage from the abdomin al wound. The white cell count is 11 with a hemoglobin 9.8 and a platelet count of 251. Her colostomy is functional. Her procalcitonin level is at 0.5. Awake and alert and communicating. On 04/23/2024, the patient is status post drainage of the pelvic/abdominal fluid and output from the drainage has been minimal at this point in time. Surgical wound site is dry clean and intact and there is no active drainage. No fever. Remains on room air oxygen. No significant leukocytosis. White cell count is 11. Procalcitonin level is at 0.5 from 04/20/2024. The patient remains on Eraxis and cefepime. Colostomy is functional. She denies having any new complaints. Hemoglobin is at 9.8 On 04/24/2024, the patient is being seen for a follow-up. No active drainage from the abdominal percutaneous catheter. Remains on cefepime. Remains on Eraxis. Colostomy is functioning. Surgical wound site is dry clean and intact. White cell count 7.9 with a hemoglobin 9.6 and a platelet count of 243. Electrolytes are stable. BUN is 15 with a creatinine of 0.5. The patient is on room air oxygen. Denies having any significant shortness of breath. Overall, she remains quite weak and debilitated. Seen today on 05/05/2024, patient is doing well, she has no active pulmonary symptoms, she is on room air, not in any distress, colostomy is functional, surgical wound is dry, continues to have some vague abdominal discomfort, clearly she has no active pulmonary issues during my evaluation. Patient remains generally weak, and debilitated. She will eventually need to be transferred to a rehab facility. WBC count is 7.9 hemoglobin 9.6 electrolytes showed low potassium of 3.9 low sodium 130 bicarb is 34 BUN 15 creatinine 0.52 her last procalcitonin level last week was 0.5 Objective - Vital Signs Vital signs: Vital Signs Temp 98.0 F 04/25/24 12:00 Pulse 52 L 04/25/24 14:00 Resp 18 04/25/24 14:00 BP 129/67 04/25/24 12:00 Pulse Ox 96 04/25/24 12:00 FiO2 40 04/14/24 16:00 Intake & Output 04/24/24 04/25/24 04/25/24 18:59 06:59 18:59 Intake Total 1247 240 Output Total 650 500 200 Balance 597 -260 -200 Weight 62 kg Intake: IV 100 Cefepime 2 gm In Sodium 100 Chloride 0.9% 100 ml @ 25 mls/hr IVPB Q8HR [facility] Rx# :[id number] Intake, IV Titration 100 Amount Anidulafungin 100 mg In 100 Sodium Chloride 0.9% 100 ml @ 84 mls/hr IVPB DAILY [facility] Rx#:[id number] Oral 1047 240 Output: Drainage 0 Right 0 Urine 250 500 Stool 400 200 Other: Voiding Method Indwelling Catheter Indwelling Catheter Indwelling Catheter ABP, PAP, CO, CI - Last Documented Arterial Blood Pressure 122/51 - Exam GENERAL: The patient is alert and oriented x3, in no distress, on room air HEENT: Pupils are round and equally reacting to light. EOMI. No scleral icterus. No conjunctival pallor. Normocephalic, atraumatic. No pharyngeal erythema. No thyromegaly. CARDIOVASCULAR: S1 and S2 present. No murmurs, rubs, or gallops. PULMONARY: Chest is clear to auscultation, no wheezing , no crackles. ABDOMEN: Soft, nontender, nondistended, normoactive bowel sounds. No palpable organomegaly. Colostomy is functional MUSCULOSKELETAL: No joint swelling or deformity. EXTREMITIES: No cyanosis, clubbing, or pedal edema. NEUROLOGICAL: Gross neurological examination did not reveal any focal deficits. SKIN: No rashes. no petechiae. - Labs CBC & Chem 7: 04/24/24 05:51 04/25/24 05:52 Labs: Microbiology - Last 24 Hours (Table) 04/22/24 12:30 Anaerobic Culture - Preliminary Other - Other 04/22/24 12:30 Gram Stain - Preliminary Peritoneal Fluid Body Fluid Culture - Preliminary Assessment and Plan Assessment: Impression: Pneumoperitoneum, status post exploratory laparotomy and sigmoid colon resection with end colostomy postoperative day #15 Acute hypoxic respiratory failure secondary to above Abdominal sepsis History of metastatic rectal carcinoma patient has been on chemotherapy recently leukopenia secondary to sepsis Lactic acidosis secondary to abdominal sepsis anterior chest wall subcutaneous abscess Diffuse anasarca improving this is mostly related to hypoproteinemia and hypoalbuminemia Benign essential hypertension Paroxysmal atrial fibrillation History of metastatic rectal carcinoma Recommendation: \Continue incentive spirometry Continue cefepime and Eraxis Continue to monitor colostomy output and surgical wound site Pain control Continue oral amiodarone and metoprolol Continue GI prophylaxis Patient will eventually need placement/rehab Will continue to follow Time with Patient: Less than 30
--- NOTE | 2024-04-25 16:35 | P.PN ---
Subjective Progress Note Date: 04/25/24 SURGICAL PROGRESS NOTE CHIEF COMPLAINT: Perforated diverticulitis HISTORY OF PRESENT ILLNESS: Patient is postop day #15 status post exploratory laparotomy with sigmoid colectomy with end colostomy for perforated diverticulitis of the sigmoid colon. Patient is status post drain placement. She does report some abdominal pain. Denies any nausea or vomiting. Ostomy is functioning. Awaiting cultures to finalize. Afebrile. WBC 7.9 and potassium 3.9 PHYSICAL EXAM: VITAL SIGNS: Reviewed. GENERAL: Well-developed in no acute distress. ABDOMEN: Soft. Nondistended. Ostomy with formed stool. Midline incision with small amount of purulent drainage noted on dressing. Drain in place with serosanguineous drainage NEUROLOGIC: Alert and oriented. Cranial nerves II through XII grossly intact. ASSESSMENT: 1. Perforated diverticulitis 2. Intra-abdominal abscess status post drain 3. Severe protein calorie malnutrition PLAN: -Continue to monitor -Awaiting discharge antibiotic recommendations -Patient will be discharged to [facility] -Possible discharge tomorrow Physician Political Scientist note has been reviewed by physician. Signing provider agrees with the documented findings, assessment, and plan of care. Objective - Vital Signs Vital signs: Vital Signs Temp 98.0 F 04/25/24 12:00 Pulse 52 L 04/25/24 14:00 Resp 18 04/25/24 14:00 BP 129/67 04/25/24 12:00 Pulse Ox 96 04/25/24 12:00 FiO2 40 04/14/24 16:00 Intake & Output 04/24/24 04/25/24 04/25/24 18:59 06:59 18:59 Intake Total 1247 240 Output Total 650 500 200 Balance 597 -260 -200 Weight 62 kg Intake: IV 100 Cefepime 2 gm In Sodium 100 Chloride 0.9% 100 ml @ 25 mls/hr IVPB Q8HR [facility] Rx# :[id number] Intake, IV Titration 100 Amount Anidulafungin 100 mg In 100 Sodium Chloride 0.9% 100 ml @ 84 mls/hr IVPB DAILY [facility] Rx#:[id number] Oral 1047 240 Output: Drainage 0 Right 0 Urine 250 500 Stool 400 200 Other: Voiding Method Indwelling Catheter Indwelling Catheter Indwelling Catheter ABP, PAP, CO, CI - Last Documented Arterial Blood Pressure 122/51 - Labs CBC & Chem 7: 04/24/24 05:51 01/13/25 05:52 Labs: Microbiology - Last 24 Hours (Table) 04/22/24 12:30 Anaerobic Culture - Preliminary Other - Other 04/22/24 12:30 Gram Stain - Preliminary Peritoneal Fluid Body Fluid Culture - Preliminary
--- NOTE | 2024-04-26 13:05 | P.PN ---
Subjective Progress Note Date: 04/26/24 Principal diagnosis: Status post exploratory laparotomy and sigmoid colon resection with colostomy On 04/21/2024, the patient remains on room air oxygen. No new complaints for now. No active drainage from the surgical wound site. Colostomy is functional. The patient is awaiting a IR guided drainage of the abdominal/pelvic fluid collection/abscesses. The patient remains on IV cefepime and Eraxis. Currently off diuretics. White cell count is 15 with a hemoglobin 9.9 and a platelet count of 224. Procalcitonin level level was at 0.5. No nausea. No emesis. The patient is postop day #11 following exploratory laparotomy and sigmoid colectomy and end colostomy for a perforated diverticulitis. She is also known to have metastatic rectal cancer. Her appetite is down. She is supplementing diet with some Ensure. No others significant events overnight. Overall con dition remains stable. 04/22/2024, the patient is being seen for a follow-up. Resting comfortably in bed. The patient is going to undergo a percutaneous drainage of the pelvic/abdominal fluid collection/abscesses. Surgical wound site is dry clean and intact. She is on room air oxygen. She remains on broad-spectrum antibiotics including Eraxis and cefepime. No active drainage from the abdomin al wound. The white cell count is 11 with a hemoglobin 9.8 and a platelet count of 251. Her colostomy is functional. Her procalcitonin level is at 0.5. Awake and alert and communicating. On 04/23/2024, the patient is status post drainage of the pelvic/abdominal fluid and output from the drainage has been minimal at this point in time. Surgical wound site is dry clean and intact and there is no active drainage. No fever. Remains on room air oxygen. No significant leukocytosis. White cell count is 11. Procalcitonin level is at 0.5 from 04/20/2024. The patient remains on Eraxis and cefepime. Colostomy is functional. She denies having any new complaints. Hemoglobin is at 9.8 On 04/24/2024, the patient is being seen for a follow-up. No active drainage from the abdominal percutaneous catheter. Remains on cefepime. Remains on Eraxis. Colostomy is functioning. Surgical wound site is dry clean and intact. White cell count 7.9 with a hemoglobin 9.6 and a platelet count of 243. Electrolytes are stable. BUN is 15 with a creatinine of 0.5. The patient is on room air oxygen. Denies having any significant shortness of breath. Overall, she remains quite weak and debilitated. Seen today on 04/25/2024, patient is doing well, she has no active pulmonary symptoms, she is on room air, not in any distress, colostomy is functional, surgical wound is dry, continues to have some vague abdominal discomfort, clearly she has no active pulmonary issues during my evaluation. Patient remains generally weak, and debilitated. She will eventually need to be transferred to a rehab facility. WBC count is 7.9 hemoglobin 9.6 electrolytes showed low potassium of 3.9 low sodium 130 bicarb is 34 BUN 15 creatinine 0.52 her last procalcitonin level last week was 0.5 Seen today on 04/26/2024, patient is doing well, on room air, not in any distress, she has no significant abdominal discomfort today, colostomy remains functional, discharge planning is in progress, patient may go to rehab facility. Labs were reviewed WBC count is 7.9 hemoglobin 9.6 procalcitonin level was 0.5 on 04/20/2023 remains on Eraxis, she is also on cefepime, being addressed by infectious disease on the case. Objective - Vital Signs Vital signs: Vital Signs Temp 98.5 F 04/26/24 08:00 Pulse 82 04/26/24 08:00 Resp 18 04/26/24 08:00 BP 149/72 04/26/24 08:00 Pulse Ox 95 04/26/24 08:00 FiO2 40 04/14/24 16:00 Intake & Output 04/25/24 04/26/24 04/26/24 18:59 06:59 18:59 Intake Total 20 180 Output Total 700 860 Balance -700 -840 180 Weight 59.5 kg Intake: IV 20 Invasive Line 8 20 Oral 180 Output: Drainage 0 60 Right 0 60 Urine 500 800 Stool 200 Other: Voiding Method Indwelling Catheter Indwelling Catheter ABP, PAP, CO, CI - Last Documented Arterial Blood Pressure 122/51 - Exam GENERAL: The patient is alert and oriented x3, in no distress, on room air HEENT: Pupils are round and equally reacting to light. EOMI. No scleral icterus. No conjunctival pallor. Normocephalic, atraumatic. No pharyngeal erythema. No thyromegaly. CARDIOVASCULAR: S1 and S2 present. No murmurs, rubs, or gallops. PULMONARY: Chest is clear to auscultation, no wheezing , no crackles. ABDOMEN: Soft, nontender, nondistended, normoactive bowel sounds. No palpable organomegaly. Colostomy is functional MUSCULOSKELETAL: No joint swelling or deformity. EXTREMITIES: No cyanosis, clubbing, or pedal edema. NEUROLOGICAL: Gross neurological examination did not reveal any focal deficits. SKIN: No rashes. no petechiae. - Labs CBC & Chem 7: 04/24/24 05:51 04/25/24 05:52 Labs: Microbiology - Last 24 Hours (Table) 04/22/24 12:30 Anaerobic Culture - Final Other - Other Clostridium innocuum 04/22/24 12:30 Gram Stain - Preliminary Peritoneal Fluid Body Fluid Culture - Preliminary Assessment and Plan Assessment: Impression: Pneumoperitoneum, status post exploratory laparotomy and sigmoid colon resection with end colostomy postoperative day #16 Acute hypoxic respiratory failure secondary to above Abdominal sepsis History of metastatic rectal carcinoma patient has been on chemotherapy recently leukopenia secondary to sepsis Lactic acidosis secondary to abdominal sepsis anterior chest wall subcutaneous abscess Diffuse anasarca improving this is mostly related to hypoproteinemia and hypoalbuminemia Benign essential hypertension Paroxysmal atrial fibrillation History of metastatic rectal carcinoma Recommendation: \Continue incentive spirometry Continue cefepime and Eraxis being addressed by infectious disease on the case. Continue to monitor colostomy output and surgical wound site Continue oral amiodarone and metoprolol Continue GI prophylaxis Discharge planning is in progress for placement in rehab Will continue to follow Time with Patient: Less than 30
--- NOTE | 2024-04-26 13:53 | P.PN ---
Subjective Progress Note Date: 04/26/24 patient is a 68-year-old lady with past medical history significant for metastatic rectal cancer brought to the ER for evaluation of lower abdominal pain. Patient that she has been not been feeling well for the last few days. Patient stated that she was having lower quad abdominal pain which was generali zed, nonradiating, no aggravating or leaving factors associated abdominal pain. Patient also complaining of constipation and has not had a bowel movement in a number of days. There was no complaint of fever or chills. There was complaint of nausea but no vomiting. Patient stated she recently started chemotherapy. Because of these symptoms, patient presented to the ER Initial lab work done in the ER showed WBC 7.5, hemoglobin 9.5, platelet count 335, sodium 130, potassium 3, BUN 14, creatinine 0.53, lactate 4.5 EKG done in the ER showed heart rate of 116 , no ST segment elevation or depres stefania seen, no T-wave inversions seen. CT abdominal pelvis done showed large pneumoperitoneum, mild circumferential wall thickening of a short segment of ascending colon and proximal sigmoid colon in associated with diverticula suggest diverticulitis versus colitis Patient admitted to internal medicine service 04/11. Patient seen and examined. Patient currently intubated, opening eyes and following commands. 04/12. Patient seen examined. Patient is currently extubated. Alert, currently has NG tube in. Lab work done this morning showed WBC 9.9, hemoglobin 10.4, platelet count 190, sodium 137, potassium 3.3, BUN 18, creatinine 0.62, glucose 100. Patient went to [facility] overnight, currently on amiodarone. 04/13. Patient seen and examined. CurrentlyLaying in the chair. Still has NG tube in. Stated pain has slightly improved. Currently on IV amiodarone, heparin. 04/14. Patient seen examined. States she feels better. Patient started on clear liquid diet . Blood work done this morning showed WBC 10.2, hemoglobin 9.2, platelet count 190, sodium 137 potassium 3.7, BUN 18, creatinine 0.43. Patient currently on oral amiodarone and IV heparin 04/15. Patient seen and examined. Patient transferred out of ICU 04/16. Patient seen and examined. Blood work done this morning showed WBC 15.2, hemoglobin 10.2, sodium 136, potassium 3.6, BUN 16, creatinine 0.40. 04/17. Patient seen and examined. Complaining of nausea, poor appetite. 04/18 Patient still complains from abdominal pain about / Colostomy bag in the left lower quadrant is working She ate little bit. Currently she is on regular diet She has central vertical abdominal wound with dressing in place Ritchie catheter in place 04/19 Patient awake and alert, no vomiting, she tolerates liquid diet only Abdominal pain is ongoing and does not look significant worsening Left lower quadrant colostomy bag is in place with brown stool which looks somewhat loose but not watery. Repeat CT of the abdomen and pelvis yesterday showing organized fluid collection in the left pelvis about 4.1 cm suspicious for an abscess and another 1 in the perihepatic area. I reviewed the CAT scan by myself and agree Patient continued on cefepime and Eraxis was added as well Patient also on Eliquis for A-fib 04/20 Patient is still have nonspecific GI symptoms, her abdominal pain is expected No overt nausea vomiting but she has poor appetite, patient was encouraged to eat and drink more and she agrees Colostomy bag is working with brown stool with no issues for now. Her leukocytosis improving slowly gradually down to 15,000, she kept on Eliquis Antibiotics with cefepime and Eraxis was added yesterday 04/21 Patient is picking up on her diet and eating more and more every day Abdominal pain controlled Colostomy bag had small hard bowel movement today. Recent CAT scan showing pelvic abscess and perihepatic abscess, surgery team discussed the case with IR and plan for placement of a drain into the perihepatic abscess but not the pelvic abscess as it is small. The recommendation continue medical treatment for the pelvic abscess. Leukocytosis slightly trending down. Patient remains on IV cefepime and Eraxis. As per general surgery Eliquis was held for her A-fib therefore we put her on therapeutic dose of Lovenox with recommendation to hold it tonight and tomorrow till cleared by the surgeon for the procedure 04/22. Patient seen and examined. Currently n.p.o., going for IR guided drain placement. States she does not feel well. Complaining of lethargy and weakness 04/23. Patient seen and examined. Patient had IR guided drain placed yesterday. States she feels better. Denies any abdominal pain. Denies nausea or vomiting. Has ostomy output. 04/24. Patient seen and examined. States she feels better. Still having abdominal pain. Still has ostomy output. Blood work done showed WBC 7.9, hem oglobin 9.6, platelet count 243, sodium 130, potassium 3.3, BUN 15, creatinine 0.52 04/26. Patient seen and examined. States she feels better. Tolerating diet. REVIEW OF SYSTEMS: Denies any chest pain. Denies any fever or chills Denies any nausea or vomiting PHYSICAL EXAMINATION: GENERAL: The patient is alert HEENT: Pupils are round and equally reacting to light. EOMI. No scleral icterus. No conjunctival pallor. Normocephalic, atraumatic. No pharyngeal erythema. No thyromegaly. CARDIOVASCULAR: S1 and S2 present. No murmurs, rubs, or gallops. PULMONARY: Chest is clear to auscultation, no wheezing or crackles. ABDOMEN: Tenderness, surgical incision seen, ostomy seen no palpable organ omegaly. Drain in place MUSCULOSKELETAL: No joint swelling or deformity. EXTREMITIES: No cyanosis, clubbing, or pedal edema. NEUROLOGICAL: Moving all extremities SKIN: No rashes. Assessment and plan Pneumoperitoneum, status post exploratory laparotomy and sigmoid colon resection with end colostomy Repeat CAT scan on 04/18 showing possible left pelvic abscess 4.1 cm and smaller perihepatic abscess Sepsis A-fib with RVR Acute hypoxic respiratory failure Acute sigmoid colon perforation Acute diverticulitis Hyponatremia Hypokalemia Lactic acidosis History of rectal cancer Monitor vital signs Monitor CBC Monitor CMP Continue telemetry monitoring status post exploratory laparotomy and sigmoid colon resection with end colostomy Repeat CAT scan on 04/18 showing possible left pelvic abscess 4.1 cm and smaller perihepatic abscess Status post drain placement by IR on 04/22 Continue cefepime, Eraxis, DC Lovenox, switch to Eliquis Pulmonology following Surgery following ID following Labs and medication were reviewed.. Continue same treatment. Continue with symptomatic treatment. Resume home medication. Monitor labs and vitals. DVT and GI prophylaxis. Further recommendations as per clinical course of the patient Dictation was produced using [employer] dictation software. please excuse any grammatical, word or spelling errors. Objective - Vital Signs Vital signs: Vital Signs Temp 98.5 F 04/26/24 12:50 Pulse 69 04/26/24 12:50 Resp 18 01/14/25 12:50 BP 149/75 04/26/24 12:50 Pulse Ox 95 04/26/24 12:50 FiO2 40 04/14/24 16:00 Intake & Output 04/25/24 04/26/24 04/26/24 18:59 06:59 18:59 Intake Total 20 180 Output Total 700 860 Balance -700 -840 180 Weight 59.5 kg 59.5 kg Intake: IV 20 Invasive Line 8 20 Oral 180 Output: Drainage 0 60 Right 0 60 Urine 500 800 Stool 200 Other: Voiding Method Indwelling Catheter Indwelling Catheter ABP, PAP, CO, CI - Last Documented Arterial Blood Pressure 122/51 - Labs CBC & Chem 7: 04/24/24 05:51 04/25/24 05:52 Labs: Microbiology - Last 24 Hours (Table) 04/22/24 12:30 Anaerobic Culture - Final Other - Other Clostridium innocuum 04/22/24 12:30 Gram Stain - Preliminary Peritoneal Fluid Body Fluid Culture - Preliminary
--- NOTE | 2024-04-26 15:03 | P.PN ---
Subjective Progress Note Date: 04/25/24 Principal diagnosis: Reason for follow-up is parotitis perforated diverticulitis Patient is a 68-year-old female with a past medical history significant for hypertension osteoarthritis hypothyroidism, metastatic rectal cancer previous history of smoking presenting to the hospital for evaluation of abdominal pain, the patient CT has been suggestive of pneumoperitoneum with diagnosis of perforated sigmoid diverticulitis patient is status post laparotomy sigmoid resection and end colostomy. Patient did have a CT-guided drainage of the abdominal abscess completed on 04/22/2024 culture has been obtained. On today's visit that is 04/25/2023, patient has been afebrile, patient is breathing comfortably and is currently on room air, patient denies having any significant cough no chest pain, patient denies nausea vomiting abdominal pain is currently controlled output in the colostomy. Patient white count normalized to 7.9 creatinine 0.52 as of yesterday no CBC was done today Objective - Vital Signs Vital signs: Vital Signs Temp 98.0 F 04/25/24 12:00 Pulse 52 L 04/25/24 12:00 Resp 18 04/25/24 12:00 BP 129/67 04/25/24 12:00 Pulse Ox 96 04/25/24 12:00 FiO2 40 04/14/24 16:00 Intake & Output 04/24/24 04/25/24 04/25/24 18:59 06:59 18:59 Intake Total 1247 240 Output Total 650 500 100 Balance 597 -260 -100 Weight 62 kg Intake: IV 100 Cefepime 2 gm In Sodium 100 Chloride 0.9% 100 ml @ 25 mls/hr IVPB Q8HR [facility] Rx# :[id number] Intake, IV Titration 100 Amount Anidulafungin 100 mg In 100 Sodium Chloride 0.9% 100 ml @ 84 mls/hr IVPB DAILY [facility] Rx#:[id number] Oral 1047 240 Output: Drainage 0 Right 0 Urine 250 500 Stool 400 100 Other: Voiding Method Indwelling Catheter Indwelling Catheter Indwelling Catheter ABP, PAP, CO, CI - Last Documented Arterial Blood Pressure 122/51 - Exam GENERAL DESCRIPTION: An elderly female lying in bed in no distress RESPIRATORY SYSTEM: Unlabored breathing , decreased breath sounds at bases HEART: S1 S2 regular rate and rhythm , ABDOMEN: Soft , mild tenderness EXTREMITIES: No edema feet - Labs CBC & Chem 7: 04/24/24 05:51 04/25/24 05:52 Labs: Microbiology - Last 24 Hours (Table) 04/22/24 12:30 Anaerobic Culture - Preliminary Other - Other 04/22/24 12:30 Gram Stain - Preliminary Peritoneal Fluid Body Fluid Culture - Preliminary 04/20/24 11:30 Anaerobic Culture - Final Abdomen Assessment and Plan (1) Sepsis Current Visit: Yes Status: Acute Code(s): A41.9 - SEPSIS, UNSPECIFIED ORGANISM SNOMED Code(s): 45895994 (2) Peritonitis Current Visit: Yes Status: Acute Code(s): K65.9 - PERITONITIS, UNSPECIFIED SNOMED Code(s): 17536134 (3) Perforation of sigmoid colon due to diverticulitis Current Visit: Yes Status: Acute Priority: High Code(s): K57.20 - DVTRCLI OF LG INT W PERFORATION AND ABSCESS W/O BLEEDING SNOMED Code(s): 4286468983872152 Plan: 1patient presented to hospital with sepsis in this patient who did have hypotension tachycardia leukopenia meeting criteria for SIRS source is likely perforated sigmoid diverticulitis with peritonitis, we will need to cover for the enteric gram-negative both aerobes and anaerobes keeping in mind her history of metastatic rectal cancer chemo and has been out of the hospital need to cover for resistant gram-negative pathogen 2-penicillin allergy therapy limit the number of antibiotics safe to use 3-patient did have evidence of intra abdominal abscess status post IR drainage of the abscess on 04/22/2024 cultures obtained which are currently pending 4- patient is afebrile patient white count has normalized 5patient is currently being treated with Eraxis, cefepime and Flagyl while waiting for cultures on the abscess fluid to be finalized and monitor clinical course closely Dictation was produced using [email or web address] dictation software. please excuse any grammatical, word or spelling errors. Time with Patient: Less than 30
--- NOTE | 2024-04-26 15:10 | P.PN ---
Subjective Progress Note Date: 04/26/24 SURGICAL PROGRESS NOTE CHIEF COMPLAINT: Perforated diverticulitis HISTORY OF PRESENT ILLNESS: Patient is postop day #16 status post exploratory laparotomy with sigmoid colectomy with end colostomy for perforated diverticulitis of the sigmoid colon. Patient is status post drain placement. Patient does report abdominal pain. She states is controlled. Her ostomy is functioning. Drain had 10 mL serosanguineous output. She did have episode of vomiting this morning. Per nursing staff patient is not getting out of bed. She is refusing to work with physical therapy. Afebrile. PHYSICAL EXAM: VITAL SIGNS: Reviewed. GENERAL: Well-developed in no acute distress. ABDOMEN: Soft. Nondistended. Ostomy with formed stool. Midline incision with small amount of purulent drainage noted. Drain in place with serosanguineous drainage NEUROLOGIC: Alert and oriented. Cranial nerves II through XII grossly intact. ASSESSMENT: 1. Perforated diverticulitis 2. Intra-abdominal abscess status post drain 3. Severe protein calorie malnutrition PLAN: -Encourage patient to work with physical therapy and increase activity level -Antibiotics per infectious disease Physician Town Administrator note has been reviewed by physician. Signing provider agrees with the documented findings, assessment, and plan of care. Attestation Patient seen and examined at bedside. Appears to be doing well. Drain in place with serous output. Continue IV antibiotics per infectious disease. Patient is not ambulating and is not working with physical therapy. I spent a significant amount of time at bedside discussing the importance of increasing activity and the effects on overall healing from surgery and postoperative improvement. She states that she will consider it. Lexie Harden, DO Objective - Vital Signs Vital signs: Vital Signs Temp 98.5 F 04/26/24 12:50 Pulse 69 04/26/24 12:50 Resp 18 04/26/24 12:50 BP 149/75 04/26/24 12:50 Pulse Ox 95 04/26/24 12:50 FiO2 40 04/14/24 16:00 Intake & Output 04/25/24 04/26/24 04/26/24 18:59 06:59 18:59 Intake Total 20 360 Output Total 700 860 Balance -700 -840 360 Weight 59.5 kg 59.5 kg Intake: IV 20 Invasive Line 8 20 Oral 360 Output: Drainage 0 60 Right 0 60 Urine 500 800 Stool 200 Other: Voiding Method Indwelling Catheter Indwelling Catheter # Voids 1 ABP, PAP, CO, CI - Last Documented Arterial Blood Pressure 122/51 - Labs CBC & Chem 7: 04/24/24 05:51 04/25/24 05:52 Labs: Microbiology - Last 24 Hours (Table) 04/22/24 12:30 Anaerobic Culture - Final Other - Other Clostridium innocuum 04/22/24 12:30 Gram Stain - Preliminary Peritoneal Fluid Body Fluid Culture - Preliminary
--- NOTE | 2024-04-26 15:11 | P.PN ---
Subjective Progress Note Date: 04/26/24 Principal diagnosis: Reason for follow-up is parotitis perforated diverticulitis Patient is a 68-year-old female with a past medical history significant for hypertension osteoarthritis hypothyroidism, metastatic rectal cancer previous history of smoking presenting to the hospital for evaluation of abdominal pain, the patient CT has been suggestive of pneumoperitoneum with diagnosis of perforated sigmoid diverticulitis patient is status post laparotomy sigmoid resection and end colostomy. Patient did have a CT-guided drainage of the abdominal abscess completed on 04/22/2024 culture has been obtained. On today's visit that is 04/26/2023, Patient is afebrile this morning patient denies having any chest pain shortness of breath or cough, the patient is currently on room air, patient abdominal pain is currently controlled no nausea vomiting did have good output in her colostomy. No new labs were obtained today CT-guided fluid culture growing Clostridium innocuum Objective - Vital Signs Vital signs: Vital Signs Temp 98.5 F 04/26/24 12:50 Pulse 69 04/26/24 12:50 Resp 18 04/26/24 12:50 BP 149/75 04/26/24 12:50 Pulse Ox 95 04/26/24 12:50 FiO2 40 04/14/24 16:00 Intake & Output 04/25/24 04/26/24 04/26/24 18:59 06:59 18:59 Intake Total 20 360 Output Total 700 860 Balance -700 -840 360 Weight 59.5 kg 59.5 kg Intake: IV 20 Invasive Line 8 20 Oral 360 Output: Drainage 0 60 Right 0 60 Urine 500 800 Stool 200 Other: Voiding Method Indwelling Catheter Indwelling Catheter # Voids 1 ABP, PAP, CO, CI - Last Documented Arterial Blood Pressure 122/51 - Exam GENERAL DESCRIPTION: An elderly female lying in bed in no distress RESPIRATORY SYSTEM: Unlabored breathing , decreased breath sounds at bases HEART: S1 S2 regular rate and rhythm , ABDOMEN: Soft , mild tenderness EXTREMITIES: No edema feet - Labs CBC & Chem 7: 04/24/24 05:51 04/25/24 05:52 Labs: Microbiology - Last 24 Hours (Table) 04/22/24 12:30 Anaerobic Culture - Final Other - Other Clostridium innocuum 04/22/24 12:30 Gram Stain - Preliminary Peritoneal Fluid Body Fluid Culture - Preliminary Assessment and Plan (1) Sepsis Current Visit: Yes Status: Acute Code(s): A41.9 - SEPSIS, UNSPECIFIED ORGANISM SNOMED Code(s): 08695124 (2) Peritonitis Current Visit: Yes Status: Acute Code(s): K65.9 - PERITONITIS, UNSPECIFIED SNOMED Code(s): 08640466 (3) Perforation of sigmoid colon due to diverticulitis Current Visit: Yes Status: Acute Priority: High Code(s): K57.20 - DVTRCLI OF LG INT W PERFORATION AND ABSCESS W/O BLEEDING SNOMED Code(s): 8112314328742847 Plan: 1patient presented to hospital with sepsis in this patient who did have hypotension tachycardia leukopenia meeting criteria for SIRS source is likely perforated sigmoid diverticulitis with peritonitis, we will need to cover for the enteric gram-negative both aerobes and anaerobes keeping in mind her history of metastatic rectal cancer chemo and has been out of the hospital need to cover for resistant gram-negative pathogen 2-penicillin allergy therapy limit the number of antibiotics safe to use 3-patient did have evidence of intra abdominal abscess status post IR drainage of the abscess on 04/22/2024 cultures obtained which are currently growing Clostridium 4- patient is afebrile patient white count has normalized, patient did have penicillin allergy hence not able to use either Zosyn or Unasyn, Flagyl should provide coverage for this pathogen which will be continued along with cefepime discussed with the micro lab to get the sensitivities Dictation was produced using [employer]ret[employer] dictation software. please excuse any grammatical, word or spelling errors. Time with Patient: Less than 30
--- NOTE | 2024-04-26 17:17 | US ---
EXAMINATION TYPE: US venous doppler duplex UE RT DATE OF EXAM: 04/26/2024 COMPARISON: NONE CLINICAL INDICATION: Female, 68 years old with history of r/o dvt; Rt arm swelling TECHNIQUE: Grayscale, color Doppler and spectral Doppler imaging of the upper extremity. SIDE PERFORMED: right FINDINGS: Right Arm: Positive for DVT Pt. has port. Adjacent to the catheter is non-occlusive DVT at the level of the IJV and subclavian ve in Grayscale, color doppler, spectral doppler imaging performed of the deep veins of the upper extremiti es. IMPRESSION: 1. Deep venous thrombosis within the right subclavian vein and internal jugular vein. This has incomp lete occlusion [facility], , 04/26/2024 5:14 PM
[2024-04-26] MEDS ORDERED: HEPARIN SODIUM 1,000 UN/ML (10ML VL) IV PRN ×2 (18:37→21:00)
[2024-04-26] MEDS ORDERED: HEPARIN SOD,PORK IN 0.45% NACL 25,000 UNIT in 0.45% NACL 1 250ML.BAG IV SCH (18:45)
[2024-04-26 19:22] LABS: Basophils % (A) 0 %; Eosinophils # (A) 0.1 k/uL (0-0.7); Eosinophils % (A) 0 %; HCT 30.5 % (34.0-46.0); HGB 9.8 gm/dL (11.4-16.0); Hypochromasia Moderate; Lymphocytes # (A) 0.9 k/uL (1.0-4.8); Lymphocytes % (A) 8 %; MCH 30.2 pg (25.0-35.0); MCV 94.4 fL (80.0-100.0); Mean Platelet Volume 7.3; Monocytes # (A) 0.6 k/uL (0-1.0); Monocytes % (A) 6 %; Neutrophils # (A) 9.6 k/uL (1.3-7.7); Neutrophils % (A) 85 %; Platelet Count 249 k/uL (150-450); RBC 3.23 m/uL (3.80-5.40); RDW 15.5 % (11.5-15.5); WBC 11.3 k/uL (3.8-10.6)
[2024-04-26] MEDS: HEPARIN SODIUM 1,000 UN/ML (10ML VL) IV ONE ×2 (19:43→20:04)
[2024-04-26] MEDS: HEPARIN SOD,PORK IN 0.45% NACL 25,000 UNIT in 0.45% NACL 1 250ML.BAG IV SCH (20:05)
[2024-04-26 20:10] LABS: Partial Thromboplastin Time 30.5 sec (22.0-30.0); Prothrombin Time 11.2 sec (10.0-12.5)
[2024-04-26] MEDS ORDERED: APIXABAN 5 MG TAB PO SCH (21:00)
[2024-04-27 07:09] LABS: Basophils % (A) 0 %; Eosinophils % (A) 0 %; HCT 32.5 % (34.0-46.0); HGB 10.5 gm/dL (11.4-16.0); Hypochromasia Moderate; Lymphocytes % (A) 7 %; MCH 30.5 pg (25.0-35.0); MCHC 32.3 g/dL (31.0-37.0); MCV 94.5 fL (80.0-100.0); Mean Platelet Volume 7.9; Monocytes # (A) 0.7 k/uL (0-1.0); Monocytes % (A) 5 %; Neutrophils % (A) 86 %; Platelet Count 271 k/uL (150-450); RBC 3.44 m/uL (3.80-5.40); RDW 15.2 % (11.5-15.5); WBC 12.8 k/uL (3.8-10.6)
[2024-04-27 07:28] LABS: INR 1.1 (<1.2); Partial Thromboplastin Time 63.1 sec (22.0-30.0); Prothrombin Time 11.7 sec (10.0-12.5)
[2024-04-27] MEDS: HYDROcodone/APAP 7.5-325MG 1 EACH TAB PO ONE (10:33)
[2024-04-27] MEDS: HYDROcodone/APAP 10-325MG 1 EACH TAB PO PRN (11:36)
--- NOTE | 2024-04-27 11:51 | P.GSCN ---
History of Present Illness Consult date: 04/27/24 Reason for Consult: Right subclavian and IJ DVT Requesting physician: Lorraine Purcell History of present illness: This a pleasant 68-year-old female with a history of colon adenocarcinoma diagnosed in fall of 2023 who had presented to the emergency department on 04/10/2024 with complaints of abdominal pain. Patient was admitted and underwent surgery for perforated diverticulitis of the sigmoid colon. She underwent exploratory laparotomy with sigmoid colon resection with end colostomy. Anesthesia placed a right IJ central line on 04/10/2024, patient was admitted to the ICU postsurgery. Right IJ central line has been since discontinued. Patient currently has a left peripheral IV line. She does not recall she had any other IVs in her right upper extremity. She had some swelling of her right upper extremity and bruising therefore a venous duplex was ordered. Venous Doppler of right upper extremity is positive for right subclavian and IJ deep vein thrombosis. Vascular surgery was consulted for DVT. Patient had a right chest port placed by Dr. Harden and 03/22/2024 and patient had chemotherapy on 03/29/2024, and has been on hold since then. Apparently patient also had episode of hypertension and atrial fibrillation with RVR postsurgery was seen by cardiology with recommendation for anticoagulation. Patient initially had been started on a heparin drip then transitioned to Eliquis 5 mg p.o. twice daily and then that was held as patient was requiring catheter placement for abdominal abscess 04/22/2024 and anticoagulation was not resumed. Patient denies any pain in her right upper extremity. She denies any shortness of breath or chest pain. Patient is just reporting abdominal pain. She is currently on a heparin drip. Review of Systems A 14 point review systems was completed all pertinent positives and negatives as stated in the HPI. Past Medical History Past Medical History: Cancer, Hypertension, Osteoarthritis (OA), Thyroid Disorder Additional Past Medical History / Comment(s): only took BP med when broke hip & took for short time only, hx. palpitations. Hemorrhoids. Pt. stated she quit smoing in october 2020. colon cancer, kidney stones, History of Any Multi-Drug Resistant Organisms: None Reported Past Surgical History: Hysterectomy, Joint Replacement Additional Past Surgical History / Comment(s): hermann hip replacements, to rt hip orif, colonoscopy Past Anesthesia/Blood Transfusion Reactions: Postoperative Nausea & Vomiting (PONV) Additional Past Anesthesia/Blood Transfusion Reaction / Comm: severe ponv, after colonscopy bp shot up with severe vomitting. no blood tx hx Past Psychological History: Anxiety Smoking Status: Former smoker Past Alcohol Use History: None Reported Past Drug Use History: None Reported - Past Family History Father Family Medical History: Congestive Heart Failure (CHF), Dementia, Osteoarthritis (OA) Mother Additional Family Medical History / Comment(s): Breast CA, skin CA Brother(s) Family Medical History: Cancer Additional Family Medical History / Comment(s): bone marrow cancer Medications and Allergies Home Medications Medication Instructions Recorded Confirmed Type Acetaminophen [Tylenol Arthritis] 650 mg PO Q4H PRN 03/18/24 04/10/24 History Allergies Allergy/AdvReac Type Severity Reaction Status Date / Time Penicillins Allergy Rash/Hives Verified 04/10/24 08:49 Surgical - Exam Vital Signs Temp Pulse Resp BP Pulse Ox 98.4 F 122 H 16 170/108 97 04/10/24 04:41 04/10/24 04:41 04/10/24 04:41 04/10/24 04:41 04/10/24 04:41 General appearance: The patient is alert, oriented, appears in no acute distress. HET: Head is normocephalic and atraumatic. Neck: Supple. Chest: Right chest port present, no surrounding swelling or redness. Heart: Regular. Lungs: Equal expansion, normal respiratory effort. Abdomen: Soft, tender, dressing to mid abdomen, colostomy with soft brown stool, nondistended. Extremities: Bilateral palpable radial pulses. Right upper extremity swelling, bruising noted above the antecubital fossa cubital fossa without any palpable hematoma, no tenderness. Neurological: No focal deficits. Alert and oriented. Results - Labs 04/27/24 05:40 04/25/24 05:52 Abnormal Lab Results - Last 24 Hours (Table) 04/26/24 04/26/24 04/27/24 Range/Units 19:02 19:02 00:16 WBC 11.3 H (3.8-10.6) k/uL RBC 3.23 L (3.80-5.40) m/uL Hgb 9.8 L (11.4-16.0) gm/dL Hct 30.5 L (34.0-46.0) % Neutrophils # 9.6 H (1.3-7.7) k/uL Lymphocytes # 0.9 L (1.0-4.8) k/uL APTT 30.5 H (22.0-30.0) sec Stool Occult Blood Positive H (Negative) 04/27/24 04/27/24 04/27/24 Range/Units 00:42 05:40 05:40 WBC 12.8 H (3.8-10.6) k/uL RBC 3.44 L (3.80-5.40) m/uL Hgb 10.5 L (11.4-16.0) gm/dL Hct 32.5 L (34.0-46.0) % Neutrophils # 11.0 H (1.3-7.7) k/uL Lymphocytes # (1.0-4.8) k/uL APTT 90.9 H 63.1 H (22.0-30.0) sec Stool Occult Blood (Negative) Microbiology - Last 24 Hours (Table) 04/22/24 12:30 Gram Stain - Final Peritoneal Fluid Body Fluid Culture - Final - Imaging Comments: Venous ultrasound right upper extremity reports deep venous thrombosis within the right subclavian vein and internal jugular vein. This has incomplete occlusion. Assessment and Plan Assessment: 1. Deep vein thrombosis in right subclavian vein and internal jugular vein 2. Right chest port for chemotherapy recently placed 03/22/2024 3. Recent right IJ central line, discontinued 4. Perforated diverticulitis with intra-abdominal abscess status post exploratory laparotomy with sigmoid colectomy with end colostomy 5. New onset atrial fibrillation 6. Metastatic colon adenocarcinoma undergoing chemotherapy, currently on hold Plan: 1. May discontinue IV heparin drip and resume Eliquis 5 mg twice daily. Case discussed with general surgery physician help desk assistant as well as oncology and no contraindication for oral anticoagulation. 2. Elevate right upper extremity 3. May apply compression sleeve to right upper extremity for swelling 4. No vascular surgical intervention recommended 5. Continue with rest of medical management per multiple consultants Thank you for this consultation, we will continue to follow. The impression and plan of care has been dictated as directed. Dr. Ritchie I performed a history and examination of this patient, discussed the same with the dictator. I agree with the dictator's note ,documented as a scribe. Any additional findings or plans will be noted.
--- NOTE | 2024-04-27 13:06 | P.PN ---
Subjective Progress Note Date: 04/27/24 patient is a 68-year-old lady with past medical history significant for metastatic rectal cancer brought to the ER for evaluation of lower abdominal pain. Patient that she has been not been feeling well for the last few days. Patient stated that she was having lower quad abdominal pain which was generali zed, nonradiating, no aggravating or leaving factors associated abdominal pain. Patient also complaining of constipation and has not had a bowel movement in a number of days. There was no complaint of fever or chills. There was complaint of nausea but no vomiting. Patient stated she recently started chemotherapy. Because of these symptoms, patient presented to the ER Initial lab work done in the ER showed WBC 7.5, hemoglobin 9.5, platelet count 335, sodium 130, potassium 3, BUN 14, creatinine 0.53, lactate 4.5 EKG done in the ER showed heart rate of 116 , no ST segment elevation or depres stefania seen, no T-wave inversions seen. CT abdominal pelvis done showed large pneumoperitoneum, mild circumferential wall thickening of a short segment of ascending colon and proximal sigmoid colon in associated with diverticula suggest diverticulitis versus colitis Patient admitted to internal medicine service 04/11. Patient seen and examined. Patient currently intubated, opening eyes and following commands. 04/12. Patient seen examined. Patient is currently extubated. Alert, currently has NG tube in. Lab work done this morning showed WBC 9.9, hemoglobin 10.4, platelet count 190, sodium 137, potassium 3.3, BUN 18, creatinine 0.62, glucose 100. Patient went to [facility] overnight, currently on amiodarone. 04/13. Patient seen and examined. CurrentlyLaying in the chair. Still has NG tube in. Stated pain has slightly improved. Currently on IV amiodarone, heparin. 04/14. Patient seen examined. States she feels better. Patient started on clear liquid diet . Blood work done this morning showed WBC 10.2, hemoglobin 9.2, platelet count 190, sodium 137 potassium 3.7, BUN 18, creatinine 0.43. Patient currently on oral amiodarone and IV heparin 04/15. Patient seen and examined. Patient transferred out of ICU 04/16. Patient seen and examined. Blood work done this morning showed WBC 15.2, hemoglobin 10.2, sodium 136, potassium 3.6, BUN 16, creatinine 0.40. 04/17. Patient seen and examined. Complaining of nausea, poor appetite. 04/18 Patient still complains from abdominal pain about / Colostomy bag in the left lower quadrant is working She ate little bit. Currently she is on regular diet She has central vertical abdominal wound with dressing in place Ritchie catheter in place 04/19 Patient awake and alert, no vomiting, she tolerates liquid diet only Abdominal pain is ongoing and does not look significant worsening Left lower quadrant colostomy bag is in place with brown stool which looks somewhat loose but not watery. Repeat CT of the abdomen and pelvis yesterday showing organized fluid collection in the left pelvis about 4.1 cm suspicious for an abscess and another 1 in the perihepatic area. I reviewed the CAT scan by myself and agree Patient continued on cefepime and Eraxis was added as well Patient also on Eliquis for A-fib 04/20 Patient is still have nonspecific GI symptoms, her abdominal pain is expected No overt nausea vomiting but she has poor appetite, patient was encouraged to eat and drink more and she agrees Colostomy bag is working with brown stool with no issues for now. Her leukocytosis improving slowly gradually down to 15,000, she kept on Eliquis Antibiotics with cefepime and Eraxis was added yesterday 04/21 Patient is picking up on her diet and eating more and more every day Abdominal pain controlled Colostomy bag had small hard bowel movement today. Recent CAT scan showing pelvic abscess and perihepatic abscess, surgery team discussed the case with IR and plan for placement of a drain into the perihepatic abscess but not the pelvic abscess as it is small. The recommendation continue medical treatment for the pelvic abscess. Leukocytosis slightly trending down. Patient remains on IV cefepime and Eraxis. As per general surgery Eliquis was held for her A-fib therefore we put her on therapeutic dose of Lovenox with recommendation to hold it tonight and tomorrow till cleared by the surgeon for the procedure 04/22. Patient seen and examined. Currently n.p.o., going for IR guided drain placement. States she does not feel well. Complaining of lethargy and weakness 04/23. Patient seen and examined. Patient had IR guided drain placed yesterday. States she feels better. Denies any abdominal pain. Denies nausea or vomiting. Has ostomy output. 04/24. Patient seen and examined. States she feels better. Still having abdominal pain. Still has ostomy output. Blood work done showed WBC 7.9, hem oglobin 9.6, platelet count 243, sodium 130, potassium 3.3, BUN 15, creatinine 0.52 04/26. Patient seen and examined. States she feels better. Tolerating diet. 04/27. Patient seen and examined. Duplex ultrasound right upper extremity showed DVT in right IJ and subclavian vein. Vascular surgery evaluated, recommended keeping patient on oral anticoagulation REVIEW OF SYSTEMS: Denies any chest pain. Denies any fever or chills Denies any nausea or vomiting PHYSICAL EXAMINATION: GENERAL: The patient is alert HEENT: Pupils are round and equally reacting to light. EOMI. No scleral icterus. No conjunctival pallor. Normocephalic, atraumatic. No pharyngeal erythema. No thyromegaly. CARDIOVASCULAR: S1 and S2 present. No murmurs, rubs, or gallops. PULMONARY: Chest is clear to auscultation, no wheezing or crackles. ABDOMEN: Tenderness, surgical incision seen, ostomy seen no palpable organ omegaly. Drain in place MUSCULOSKELETAL: No joint swelling or deformity. EXTREMITIES: No cyanosis, clubbing, or pedal edema. NEUROLOGICAL: Moving all extremities SKIN: No rashes. Assessment and plan Pneumoperitoneum, status post exploratory laparotomy and sigmoid colon resection with end colostomy Repeat CAT scan on 04/18 showing possible left pelvic abscess 4.1 cm and smaller perihepatic abscess Right upper extremity DVT in right IJ and subclavian vein Sepsis A-fib with RVR Acute hypoxic respiratory failure Acute sigmoid colon perforation Acute diverticulitis Hyponatremia Hypokalemia Lactic acidosis History of rectal cancer Monitor vital signs Monitor CBC Monitor CMP Continue telemetry monitoring status post exploratory laparotomy and sigmoid colon resection with end colostomy Repeat CAT scan on 04/18 showing possible left pelvic abscess 4.1 cm and smaller perihepatic abscess Status post drain placement by IR on 04/22 Continue cefepime, Eraxis, Continue Eliquis Pulmonology following Surgery following ID following Vascular surgery consulted, recommended oral anticoagulation, no need for any surgical intervention Labs and medication were reviewed.. Continue same treatment. Continue with symptomatic treatment. Resume home medication. Monitor labs and vitals. DVT and GI prophylaxis. Further recommendations as per clinical course of the patient Dictation was produced using [email or web address] dictation software. please excuse any grammatical, word or spelling errors. Objective - Vital Signs Vital signs: Vital Signs Temp 98.5 F 04/27/24 07:53 Pulse 95 04/27/24 11:32 Resp 18 04/27/24 11:32 BP 119/55 04/27/24 07:53 Pulse Ox 94 L 04/27/24 07:53 FiO2 40 04/14/24 16:00 Intake & Output 04/26/24 04/27/24 04/27/24 18:59 06:59 18:59 Intake Total 540 241.055 Output Total 10 10 720 Balance 530 231.055 -720 Weight 59.5 kg 60.5 kg Intake: Intake, IV Titration 41.055 Amount Heparin Sod,Pork in 0.45% 41.055 NaCl 25,000 unit In 0.45 % NaCl 1 250ml.bag @ 12 UNITS/KG/HR 7.14 mls/hr IV .Q24H [facility] Rx#: [id number] Oral 540 200 Output: Drainage 10 10 Right 10 10 Urine 520 Stool 200 Other: Voiding Method Indwelling Catheter Bedside Commode Diaper # Voids 1 0 ABP, PAP, CO, CI - Last Documented Arterial Blood Pressure 122/51 - Labs CBC & Chem 7: 04/27/24 05:40 04/25/24 05:52 Labs: Abnormal Lab Results - Last 24 Hours (Table) 04/26/24 04/26/24 04/27/24 Range/Units 19:02 19:02 00:16 WBC 11.3 H (3.8-10.6) k/uL RBC 3.23 L (3.80-5.40) m/uL Hgb 9.8 L (11.4-16.0) gm/dL Hct 30.5 L (34.0-46.0) % Neutrophils # 9.6 H (1.3-7.7) k/uL Lymphocytes # 0.9 L (1.0-4.8) k/uL APTT 30.5 H (22.0-30.0) sec Stool Occult Blood Positive H (Negative) 04/27/24 04/27/24 04/27/24 Range/Units 00:42 05:40 05:40 WBC 12.8 H (3.8-10.6) k/uL RBC 3.44 L (3.80-5.40) m/uL Hgb 10.5 L (11.4-16.0) gm/dL Hct 32.5 L (34.0-46.0) % Neutrophils # 11.0 H (1.3-7.7) k/uL Lymphocytes # (1.0-4.8) k/uL APTT 90.9 H 63.1 H (22.0-30.0) sec Stool Occult Blood (Negative) Microbiology - Last 24 Hours (Table) 04/22/24 12:30 Gram Stain - Final Peritoneal Fluid Body Fluid Culture - Final
--- NOTE | 2024-04-27 14:14 | P.PN ---
Subjective Progress Note Date: 04/27/24 SURGICAL PROGRESS NOTE CHIEF COMPLAINT: Perforated diverticulitis HISTORY OF PRESENT ILLNESS: Patient is postop day #17 status post exploratory laparotomy with sigmoid colectomy with end colostomy for perforated diverticulitis of the sigmoid colon. Patient is status post drain placement. Patient does report abdominal pain. Pain is controlled pain medication. Patient is not getting out of bed. She has declined physical therapy. She was found to have a DVT in the right subclavian and right jugular vein on ultrasound. She was currently started on IV heparin drip and has been seen by vascular service who is recommending Eliquis. No new complaints. Patient does complain of not being able to urinate after Ritchie catheter was removed. PHYSICAL EXAM: VITAL SIGNS: Reviewed. GENERAL: Well-developed in no acute distress. ABDOMEN: Soft. Nondistended. Ostomy with formed stool. Midline incision with small amount of purulent drainage noted. Drain in place with serosanguineous drainage NEUROLOGIC: Alert and oriented. Cranial nerves II through XII grossly intact. ASSESSMENT: 1. Perforated diverticulitis 2. Intra-abdominal abscess status post drain 3. Severe protein calorie malnutrition PLAN: -Okay to start Eliquis from surgical standpoint -Encourage patient to increase activity level -Patient can be transferred to Surgical floor -Antibiotics per infectious disease -Bladder scans been completed for possible urinary retention Physician Ribbon Winder note has been reviewed by physician. Signing provider agrees with the documented findings, assessment, and plan of care. Attestation Patient seen and examined at bedside. Postoperative status post exploratory laparotomy with Christensen's procedure. Ostomy is functioning. Patient is tolerating diet. She is still quite resistant to any increased activity. I once again spent a significant amount of time discussing the importance of increasing her activity and getting out of bed. Her Ritchie was removed yesterday and patient states she is unable to urinate since placement. We will perform bladder scanning and straight catheterization. I did discuss with nursing to get the patient out of bed. She is aware that increasing her activity will lead to overall improvement. Continue drainage catheter. Continue IV antibiotics per infectious disease. Lexie Harden DO Objective - Vital Signs Vital signs: Vital Signs Temp 98.2 F 04/27/24 12:00 Pulse 89 04/27/24 12:00 Resp 18 04/27/24 12:00 BP 131/61 04/27/24 12:00 Pulse Ox 96 04/27/24 12:00 FiO2 40 04/14/24 16:00 Intake & Output 04/26/24 04/27/24 04/27/24 18:59 06:59 18:59 Intake Total 540 241.055 Output Total 10 10 820 Balance 530 231.055 -820 Weight 59.5 kg 60.5 kg Intake: Intake, IV Titration 41.055 Amount Heparin Sod,Pork in 0.45% 41.055 NaCl 25,000 unit In 0.45 % NaCl 1 250ml.bag @ 12 UNITS/KG/HR 7.14 mls/hr IV .Q24H [facility] Rx#: [id number] Oral 540 200 Output: Drainage 10 10 Right 10 10 Urine 620 Stool 200 Other: Voiding Method Indwelling Catheter Bedside Commode Diaper # Voids 1 0 ABP, PAP, CO, CI - Last Documented Arterial Blood Pressure 122/51 - Labs CBC & Chem 7: 04/27/24 05:40 04/25/24 05:52 Labs: Abnormal Lab Results - Last 24 Hours (Table) 04/26/24 04/26/24 04/27/24 Range/Units 19:02 19:02 00:16 WBC 11.3 H (3.8-10.6) k/uL RBC 3.23 L (3.80-5.40) m/uL Hgb 9.8 L (11.4-16.0) gm/dL Hct 30.5 L (34.0-46.0) % Neutrophils # 9.6 H (1.3-7.7) k/uL Lymphocytes # 0.9 L (1.0-4.8) k/uL APTT 30.5 H (22.0-30.0) sec Stool Occult Blood Positive H (Negative) 04/27/24 04/27/24 04/27/24 Range/Units 00:42 05:40 05:40 WBC 12.8 H (3.8-10.6) k/uL RBC 3.44 L (3.80-5.40) m/uL Hgb 10.5 L (11.4-16.0) gm/dL Hct 32.5 L (34.0-46.0) % Neutrophils # 11.0 H (1.3-7.7) k/uL Lymphocytes # (1.0-4.8) k/uL APTT 90.9 H 63.1 H (22.0-30.0) sec Stool Occult Blood (Negative) Microbiology - Last 24 Hours (Table) 04/22/24 12:30 Gram Stain - Final Peritoneal Fluid Body Fluid Culture - Final
--- NOTE | 2024-04-27 15:55 | P.PN ---
Subjective Progress Note Date: 04/27/24 Principal diagnosis: Status post exploratory laparotomy and sigmoid colon resection with colostomy On 04/21/2024, the patient remains on room air oxygen. No new complaints for now. No active drainage from the surgical wound site. Colostomy is functional. The patient is awaiting a IR guided drainage of the abdominal/pelvic fluid collection/abscesses. The patient remains on IV cefepime and Eraxis. Currently off diuretics. White cell count is 15 with a hemoglobin 9.9 and a platelet count of 224. Procalcitonin level level was at 0.5. No nausea. No emesis. The patient is postop day #11 following exploratory laparotomy and sigmoid colectomy and end colostomy for a perforated diverticulitis. She is also known to have metastatic rectal cancer. Her appetite is down. She is supplementing diet with some Ensure. No others significant events overnight. Overall con dition remains stable. 04/22/2024, the patient is being seen for a follow-up. Resting comfortably in bed. The patient is going to undergo a percutaneous drainage of the pelvic/abdominal fluid collection/abscesses. Surgical wound site is dry clean and intact. She is on room air oxygen. She remains on broad-spectrum antibiotics including Eraxis and cefepime. No active drainage from the abdomin al wound. The white cell count is 11 with a hemoglobin 9.8 and a platelet count of 251. Her colostomy is functional. Her procalcitonin level is at 0.5. Awake and alert and communicating. On 04/23/2024, the patient is status post drainage of the pelvic/abdominal fluid and output from the drainage has been minimal at this point in time. Surgical wound site is dry clean and intact and there is no active drainage. No fever. Remains on room air oxygen. No significant leukocytosis. White cell count is 11. Procalcitonin level is at 0.5 from 04/20/2024. The patient remains on Eraxis and cefepime. Colostomy is functional. She denies having any new complaints. Hemoglobin is at 9.8 On 04/24/2024, the patient is being seen for a follow-up. No active drainage from the abdominal percutaneous catheter. Remains on cefepime. Remains on Eraxis. Colostomy is functioning. Surgical wound site is dry clean and intact. White cell count 7.9 with a hemoglobin 9.6 and a platelet count of 243. Electrolytes are stable. BUN is 15 with a creatinine of 0.5. The patient is on room air oxygen. Denies having any significant shortness of breath. Overall, she remains quite weak and debilitated. Seen today on 04/25/2024, patient is doing well, she has no active pulmonary symptoms, she is on room air, not in any distress, colostomy is functional, surgical wound is dry, continues to have some vague abdominal discomfort, clearly she has no active pulmonary issues during my evaluation. Patient remains generally weak, and debilitated. She will eventually need to be transferred to a rehab facility. WBC count is 7.9 hemoglobin 9.6 electrolytes showed low potassium of 3.9 low sodium 130 bicarb is 34 BUN 15 creatinine 0.52 her last procalcitonin level last week was 0.5 Seen today on 04/26/2024, patient is doing well, on room air, not in any distress, she has no significant abdominal discomfort today, colostomy remains functional, discharge planning is in progress, patient may go to rehab facility. Labs were reviewed WBC count is 7.9 hemoglobin 9.6 procalcitonin level was 0.5 on 04/20/2023 remains on Eraxis, she is also on cefepime, being addressed by infectious disease on the case. Patient was seen today on 04/27/2024, patient is doing well from the pulmonary perspective, no active pulmonary symptoms, however venous Doppler of her right upper extremity showed evidence of subclavian vein and internal jugular vein thrombosis, patient was placed on heparin and she was seen by vascular surgery who recommended transitioning of heparin to Eliquis. Pulmonary miranda no cough no shortness of breath, obviously no evidence of pulmonary embolism based on clinical findings. And no need to do a CT angiogram of the chest since the patient is #1 asymptomatic #2 she will require anticoagulation treatment anyway. WBC count today is 12.8 hemoglobin 10.5 PTT is 63.1 Objective - Vital Signs Vital signs: Vital Signs Temp 98.2 F 04/27/24 12:00 Pulse 89 04/27/24 12:00 Resp 18 04/27/24 12:00 BP 131/61 04/27/24 12:00 Pulse Ox 96 04/27/24 12:00 FiO2 40 04/14/24 16:00 Intake & Output 04/26/24 04/27/24 04/27/24 18:59 06:59 18:59 Intake Total 540 241.055 Output Total 10 10 820 Balance 530 231.055 -820 Weight 59.5 kg 60.5 kg Intake: Intake, IV Titration 41.055 Amount Heparin Sod,Pork in 0.45% 41.055 NaCl 25,000 unit In 0.45 % NaCl 1 250ml.bag @ 12 UNITS/KG/HR 7.14 mls/hr IV .Q24H [facility] Rx#: [id number] Oral 540 200 Output: Drainage 10 10 Right 10 10 Urine 620 Stool 200 Other: Voiding Method Indwelling Catheter Bedside Commode Diaper # Voids 1 0 ABP, PAP, CO, CI - Last Documented Arterial Blood Pressure 122/51 - Exam GENERAL: The patient is alert and oriented x3, in no distress, on room air HEENT: Pupils are round and equally reacting to light. EOMI. No scleral icterus. No conjunctival pallor. Normocephalic, atraumatic. No pharyngeal erythema. No thyromegaly. CARDIOVASCULAR: S1 and S2 present. No murmurs, rubs, or gallops. PULMONARY: Chest is clear to auscultation, no wheezing , no crackles. ABDOMEN: Soft, nontender, nondistended, normoactive bowel sounds. No palpable organomegaly. Colostomy is functional MUSCULOSKELETAL: No joint swelling or deformity. EXTREMITIES: No cyanosis, clubbing, evidence of swelling noted in the right forearm and right upper extremity NEUROLOGICAL: Gross neurological examination did not reveal any focal deficits. SKIN: No rashes. no petechiae. - Labs CBC & Chem 7: 04/27/24 05:40 04/25/24 05:52 Labs: Abnormal Lab Results - Last 24 Hours (Table) 04/26/24 04/26/24 04/27/24 Range/Units 19:02 19:02 00:16 WBC 11.3 H (3.8-10.6) k/uL RBC 3.23 L (3.80-5.40) m/uL Hgb 9.8 L (11.4-16.0) gm/dL Hct 30.5 L (34.0-46.0) % Neutrophils # 9.6 H (1.3-7.7) k/uL Lymphocytes # 0.9 L (1.0-4.8) k/uL APTT 30.5 H (22.0-30.0) sec Stool Occult Blood Positive H (Negative) 04/27/24 04/27/24 04/27/24 Range/Units 00:42 05:40 05:40 WBC 12.8 H (3.8-10.6) k/uL RBC 3.44 L (3.80-5.40) m/uL Hgb 10.5 L (11.4-16.0) gm/dL Hct 32.5 L (34.0-46.0) % Neutrophils # 11.0 H (1.3-7.7) k/uL Lymphocytes # (1.0-4.8) k/uL APTT 90.9 H 63.1 H (22.0-30.0) sec Stool Occult Blood (Negative) Microbiology - Last 24 Hours (Table) 04/22/24 12:30 Gram Stain - Final Peritoneal Fluid Body Fluid Culture - Final Assessment and Plan Assessment: Impression: Pneumoperitoneum, status post exploratory laparotomy and sigmoid colon resection with end colostomy postoperative day #16 Acute hypoxic respiratory failure secondary to above Abdominal sepsis History of metastatic rectal carcinoma patient has been on chemotherapy recently leukopenia secondary to sepsis Lactic acidosis secondary to abdominal sepsis anterior chest wall subcutaneous abscess Diffuse anasarca improving this is mostly related to hypoproteinemia and hypoalbuminemia Benign essential hypertension Paroxysmal atrial fibrillation History of metastatic rectal carcinoma Acute deep vein thrombosis involving the right upper extremity, right subclavian vein, and right internal jugular vein, on heparin, to be transitioned to Eliquis Recommendation: Agree with heparin and transition to Eliquis, if the patient has contraindication or major GI bleeding, may have to be considered for IVC filter. Being followed by vascular at this point. \Continue incentive spirometry Continue cefepime and Eraxis being addressed by infectious disease on the case. This was reviewed by infectious disease on the case including cefepime and Eraxis Continue to monitor colostomy output and surgical wound site Continue oral amiodarone and metoprolol Continue GI prophylaxis Continue discharge planning to rehab. Will continue to follow Time with Patient: Less than 30
--- NOTE | 2024-04-27 18:22 | P.PN ---
Subjective Progress Note Date: 04/27/24 Principal diagnosis: Colon adenocarcinoma, perforated diverticulum In f/u pt has c/o lower abd pain, staff reports she is resistant to movement and "screams" in pain when try to get to a chair. Pt is tearful at times during conversation, she does not like to be moved for exam. No documented fevers, vomiting. Ostomy working well with semisolid brown stool. Pt is using IS, cough is congested. She has some swelling in the RUE, there is bruising in AC and above AC, no line documented as being in the area of bruising. Objective - Vital Signs Vital signs: Vital Signs Temp 98.5 F 04/27/24 07:53 Pulse 95 04/27/24 11:32 Resp 18 04/27/24 11:32 BP 119/55 04/27/24 07:53 Pulse Ox 94 L 04/27/24 07:53 FiO2 40 04/14/24 16:00 Intake & Output 04/26/24 04/27/24 04/27/24 18:59 06:59 18:59 Intake Total 540 241.055 Output Total 10 10 720 Balance 530 231.055 -720 Weight 59.5 kg 60.5 kg Intake: Intake, IV Titration 41.055 Amount Heparin Sod,Pork in 0.45% 41.055 NaCl 25,000 unit In 0.45 % NaCl 1 250ml.bag @ 12 UNITS/KG/HR 7.14 mls/hr IV .Q24H [facility] Rx#: [id number] Oral 540 200 Output: Drainage 10 10 Right 10 10 Urine 520 Stool 200 Other: Voiding Method Indwelling Catheter Bedside Commode Diaper # Voids 1 0 ABP, PAP, CO, CI - Last Documented Arterial Blood Pressure 122/51 - Constitutional General appearance: Present: disheveled, mild distress, thin - EENT EENT Comment(s): dry mucus membranes Eyes: Present: anicteric sclerae, EOMI ENT: Present: hearing grossly normal - Respiratory Respiratory: bilateral: rhonchi - Cardiovascular Rhythm: regular Abnormal Heart Sounds: Present: systolic murmur (end systolic/early diastolic, hard closure) - Gastrointestinal Gastrointestinal Comment(s): midline incision dressing, brown semisolid stool in ostomy, abd is soft, BS noted, pt reporting significant pain, no guarding General gastrointestinal: Present: soft - Integumentary Integumentary Comment(s): pale - Neurologic Neurologic: Present: CNII-XII intact - Musculoskeletal Musculoskeletal: Present: generalized weakness - Psychiatric Psychiatric: Present: A&O x's 3 - Labs CBC & Chem 7: 04/27/24 05:40 04/25/24 05:52 Labs: Abnormal Lab Results - Last 24 Hours (Table) 04/26/24 04/26/24 04/27/24 Range/Units 19:02 19:02 00:16 WBC 11.3 H (3.8-10.6) k/uL RBC 3.23 L (3.80-5.40) m/uL Hgb 9.8 L (11.4-16.0) gm/dL Hct 30.5 L (34.0-46.0) % Neutrophils # 9.6 H (1.3-7.7) k/uL Lymphocytes # 0.9 L (1.0-4.8) k/uL APTT 30.5 H (22.0-30.0) sec Stool Occult Blood Positive H (Negative) 04/27/24 04/27/24 04/27/24 Range/Units 00:42 05:40 05:40 WBC 12.8 H (3.8-10.6) k/uL RBC 3.44 L (3.80-5.40) m/uL Hgb 10.5 L (11.4-16.0) gm/dL Hct 32.5 L (34.0-46.0) % Neutrophils # 11.0 H (1.3-7.7) k/uL Lymphocytes # (1.0-4.8) k/uL APTT 90.9 H 63.1 H (22.0-30.0) sec Stool Occult Blood (Negative) Microbiology - Last 24 Hours (Table) 04/22/24 12:30 Gram Stain - Final Peritoneal Fluid Body Fluid Culture - Final - Imaging and Cardiology Venous US: report reviewed Assessment and Plan (1) Perforation of sigmoid colon due to diverticulitis Current Visit: Yes Status: Acute Priority: High Code(s): K57.20 - DVTRCLI OF LG INT W PERFORATION AND ABSCESS W/O BLEEDING SNOMED Code(s): 4784806218913865 (2) Colon adenocarcinoma Current Visit: Yes Status: Acute Priority: High Code(s): C18.9 - MALIGNANT NEOPLASM OF COLON, UNSPECIFIED SNOMED Code(s): 904375261 (3) DVT (deep venous thrombosis) Current Visit: Yes Status: Acute Priority: High Code(s): I82.409 - ACUTE EMBOLISM AND THOMBOS UNSP DEEP VN UNSP LOWER EXTREMITY SNOMED Code(s): 066939654 Plan: Perforation of the sigmoid colon due to diverticulitis -Patient is status post exploratory laparotomy with sigmoid resection and end colostomy. Ostomy working well, incision seems to be healing well. -Pathology negative for malignancy -Pt is requiring significant encouragement to get moving. She is being moved to another unit for increased activity -Defer Surgical management to Surgery. Abscess -Pt is on abx, has drain. ID following -Defer mgmt to ID Stage IV colon adenocarcinoma -Patient had her first cycle of treatment last week. Patient did not do well with treatment, complaints of nausea, generally feeling unwell. -Suspect the perforation 2/2 cancer/perforated diverticulitis versus complication directly related to treatment. Patient had her first cycle of chemo starting on the , just 2 weeks ago. Would not anticipate tumor regression to the point of causing a perforation. Pending pathology results and findings. -Postop, no treatment would be offered to patient until she is completely recovered from surgery and her acute situation. Pt is struggling with recovery at this time. She is going to need extensive rehab, if she is able to tolerate. DVT RUE -Provoked 2/2 port catheter in subclavian -Agree with jewels. Start loading dose, new DVT -Anticoagulation will be continued as long as port in place -Case discussed with Vascular FOREST [employer]ANG[employer] TECHNICIAN
[2024-04-27] MEDS: Apixaban Initiation Dose--VTE 5 MG TAB PO SCH (20:31)
[2024-04-27] MEDS ORDERED: APIXABAN 5 MG TAB PO SCH (21:00)
--- NOTE | 2024-04-28 10:14 | P.PN ---
Subjective Progress Note Date: 04/28/24 Principal diagnosis: Right subclavian and IJ vein DVT Patient is seen and examined today as a follow-up for DVT of the right subclavian and IJ veins. Heparin drip was discontinued, she was started on Eliquis. Oncology increased dose to 10 mg twice daily. Patient denies any pain in her right upper extremity or neck. Swelling improving. Objective - Vital Signs Vital signs: Vital Signs Temp 98.1 F 04/28/24 08:13 Pulse 75 04/28/24 08:13 Resp 18 04/28/24 08:13 BP 138/76 04/28/24 08:13 Pulse Ox 94 L 04/28/24 08:13 FiO2 40 04/14/24 16:00 Intake & Output 04/27/24 04/28/24 04/28/24 18:59 06:59 18:59 Intake Total 680 Output Total 820 580 Balance -820 100 Weight 56 kg Intake: IV 320 0.9 KVO 220 Cefepime 2 gm In Sodium 100 Chloride 0.9% 100 ml @ 25 mls/hr IVPB Q8HR [facility] Rx# :[id number] Oral 360 Output: Drainage 60 Right 60 Urine 620 400 Stool 200 120 ABP, PAP, CO, CI - Last Documented Arterial Blood Pressure 122/51 - Exam General appearance: The patient is alert, oriented, appears in no acute distress. HET: Head is normocephalic and atraumatic. Neck: Supple. Abdomen: Soft, nontender, nondistended. Extremities: Bilateral palpable radial pulses. Right upper extremity swelling improving, bruising noted above the antecubital fossa cubital fossa without any palpable hematoma, no tenderness. Full range of motion bilateral upper extremities. Neurological: Alert and oriented. - Labs CBC & Chem 7: 04/27/24 05:40 04/25/24 05:52 Assessment and Plan Assessment: 1. Deep vein thrombosis in right subclavian vein and internal jugular vein 2. Right chest port for chemotherapy recently placed 03/22/2024 3. Recent right IJ central line, discontinued 4. Perforated diverticulitis with intra-abdominal abscess status post exploratory laparotomy with sigmoid colectomy with end colostomy 5. New onset atrial fibrillation 6. Metastatic colon adenocarcinoma undergoing chemotherapy, currently on hold Plan: 1. Continue oral anticoagulation per recommendations from oncology 2. Elevate right upper extremity 3. May apply compression sleeve to right upper extremity for swelling 4. No vascular surgical intervention recommended 5. Encourage increased activity/ambulation 6. Continue with rest of medical management per multiple consultants Thank you for this consultation, we will sign off at this time. The impression and plan of care has been dictated as directed. Dr. Ritchie I performed a history and examination of this patient, discussed the same with the dictator. I agree with the dictator's note ,documented as a scribe. Any additional findings or plans will be noted.
[2024-04-28 10:57] LABS: HCT 29.9 % (34.0-46.0); HGB 9.4 gm/dL (11.4-16.0); Hypochromasia Marked; MCH 30.1 pg (25.0-35.0); MCHC 31.3 g/dL (31.0-37.0); MCV 96.2 fL (80.0-100.0); Mean Platelet Volume 7.4; Platelet Count 216 k/uL (150-450); RBC 3.11 m/uL (3.80-5.40); RDW 15.4 % (11.5-15.5)
--- NOTE | 2024-04-28 13:03 | P.PN ---
Subjective Progress Note Date: 04/28/24 patient is a 68-year-old lady with past medical history significant for metastatic rectal cancer brought to the ER for evaluation of lower abdominal pain. Patient that she has been not been feeling well for the last few days. Patient stated that she was having lower quad abdominal pain which was generali zed, nonradiating, no aggravating or leaving factors associated abdominal pain. Patient also complaining of constipation and has not had a bowel movement in a number of days. There was no complaint of fever or chills. There was complaint of nausea but no vomiting. Patient stated she recently started chemotherapy. Because of these symptoms, patient presented to the ER Initial lab work done in the ER showed WBC 7.5, hemoglobin 9.5, platelet count 335, sodium 130, potassium 3, BUN 14, creatinine 0.53, lactate 4.5 EKG done in the ER showed heart rate of 116 , no ST segment elevation or depres stefania seen, no T-wave inversions seen. CT abdominal pelvis done showed large pneumoperitoneum, mild circumferential wall thickening of a short segment of ascending colon and proximal sigmoid colon in associated with diverticula suggest diverticulitis versus colitis Patient admitted to internal medicine service 04/11. Patient seen and examined. Patient currently intubated, opening eyes and following commands. 04/12. Patient seen examined. Patient is currently extubated. Alert, currently has NG tube in. Lab work done this morning showed WBC 9.9, hemoglobin 10.4, platelet count 190, sodium 137, potassium 3.3, BUN 18, creatinine 0.62, glucose 100. Patient went to [facility] overnight, currently on amiodarone. 04/13. Patient seen and examined. CurrentlyLaying in the chair. Still has NG tube in. Stated pain has slightly improved. Currently on IV amiodarone, heparin. 04/14. Patient seen examined. States she feels better. Patient started on clear liquid diet . Blood work done this morning showed WBC 10.2, hemoglobin 9.2, platelet count 190, sodium 137 potassium 3.7, BUN 18, creatinine 0.43. Patient currently on oral amiodarone and IV heparin 04/15. Patient seen and examined. Patient transferred out of ICU 04/16. Patient seen and examined. Blood work done this morning showed WBC 15.2, hemoglobin 10.2, sodium 136, potassium 3.6, BUN 16, creatinine 0.40. 04/17. Patient seen and examined. Complaining of nausea, poor appetite. 04/18 Patient still complains from abdominal pain about / Colostomy bag in the left lower quadrant is working She ate little bit. Currently she is on regular diet She has central vertical abdominal wound with dressing in place Ritchie catheter in place 04/19 Patient awake and alert, no vomiting, she tolerates liquid diet only Abdominal pain is ongoing and does not look significant worsening Left lower quadrant colostomy bag is in place with brown stool which looks somewhat loose but not watery. Repeat CT of the abdomen and pelvis yesterday showing organized fluid collection in the left pelvis about 4.1 cm suspicious for an abscess and another 1 in the perihepatic area. I reviewed the CAT scan by myself and agree Patient continued on cefepime and Eraxis was added as well Patient also on Eliquis for A-fib 04/20 Patient is still have nonspecific GI symptoms, her abdominal pain is expected No overt nausea vomiting but she has poor appetite, patient was encouraged to eat and drink more and she agrees Colostomy bag is working with brown stool with no issues for now. Her leukocytosis improving slowly gradually down to 15,000, she kept on Eliquis Antibiotics with cefepime and Eraxis was added yesterday 04/21 Patient is picking up on her diet and eating more and more every day Abdominal pain controlled Colostomy bag had small hard bowel movement today. Recent CAT scan showing pelvic abscess and perihepatic abscess, surgery team discussed the case with IR and plan for placement of a drain into the perihepatic abscess but not the pelvic abscess as it is small. The recommendation continue medical treatment for the pelvic abscess. Leukocytosis slightly trending down. Patient remains on IV cefepime and Eraxis. As per general surgery Eliquis was held for her A-fib therefore we put her on therapeutic dose of Lovenox with recommendation to hold it tonight and tomorrow till cleared by the surgeon for the procedure 04/22. Patient seen and examined. Currently n.p.o., going for IR guided drain placement. States she does not feel well. Complaining of lethargy and weakness 04/23. Patient seen and examined. Patient had IR guided drain placed yesterday. States she feels better. Denies any abdominal pain. Denies nausea or vomiting. Has ostomy output. 04/24. Patient seen and examined. States she feels better. Still having abdominal pain. Still has ostomy output. Blood work done showed WBC 7.9, hem oglobin 9.6, platelet count 243, sodium 130, potassium 3.3, BUN 15, creatinine 0.52 04/26. Patient seen and examined. States she feels better. Tolerating diet. 04/27. Patient seen and examined. Duplex ultrasound right upper extremity showed DVT in right IJ and subclavian vein. Vascular surgery evaluated, recommended keeping patient on oral anticoagulation 04/28. Patient seen and examined. States she feels slightly better. Appetite is poor. Vital signs are stable REVIEW OF SYSTEMS: Denies any chest pain. Denies any fever or chills Denies any nausea or vomiting PHYSICAL EXAMINATION: GENERAL: The patient is alert HEENT: Pupils are round and equally reacting to light. EOMI. No scleral icterus. No conjunctival pallor. Normocephalic, atraumatic. No pharyngeal erythema. No thyromegaly. CARDIOVASCULAR: S1 and S2 present. No murmurs, rubs, or gallops. PULMONARY: Chest is clear to auscultation, no wheezing or crackles. ABDOMEN: Tenderness, surgical incision seen, ostomy seen no palpable organomegaly. Drain in place MUSCULOSKELETAL: No joint swelling or deformity. EXTREMITIES: No cyanosis, clubbing, or pedal edema. NEUROLOGICAL: Moving all extremities SKIN: No rashes. Assessment and plan Pneumoperitoneum, status post exploratory laparotomy and sigmoid colon resection with end colostomy Repeat CAT scan on 04/18 showing possible left pelvic abscess 4.1 cm and smaller perihepatic abscess Right upper extremity DVT in right IJ and subclavian vein Sepsis A-fib with RVR Acute hypoxic respiratory failure Acute sigmoid colon perforation Acute diverticulitis Hyponatremia Hypokalemia Lactic acidosis History of rectal cancer Monitor vital signs Monitor CBC Monitor CMP Continue telemetry monitoring status post exploratory laparotomy and sigmoid colon resection with end colost valentin Repeat CAT scan on 04/18 showing possible left pelvic abscess 4.1 cm and smaller perihepatic abscess Status post drain placement by IR on 04/22 Continue cefepime, Eraxis, Continue Eliquis 10 mg twice daily twice a day for 7 days followed by 5 mg twice a day Pulmonology following Surgery following ID following Vascular surgery consulted, recommended oral anticoagulation, no need for any surgical intervention Labs and medication were reviewed.. Continue same treatment. Continue with symptomatic treatment. Resume home medication. Monitor labs and vitals. DVT and GI prophylaxis. Further recommendations as per clinical course of the patient Dictation was produced using [employer] dictation software. please excuse any grammatical, word or spelling errors. Objective - Vital Signs Vital signs: Vital Signs Temp 98.1 F 04/28/24 08:13 Pulse 75 04/28/24 08:13 Resp 18 04/28/24 08:13 BP 138/76 04/28/24 08:13 Pulse Ox 94 L 04/28/24 08:13 FiO2 40 04/14/24 16:00 Intake & Output 04/27/24 04/28/24 04/28/24 18:59 06:59 18:59 Intake Total 680 Output Total 820 580 Balance -820 100 Weight 56 kg Intake: IV 320 0.9 KVO 220 Cefepime 2 gm In Sodium 100 Chloride 0.9% 100 ml @ 25 mls/hr IVPB Q8HR [facility] Rx# :[id number] Oral 360 Output: Drainage 60 Right 60 Urine 620 400 Stool 200 120 Other: Voiding Method Bedside Commode Diaper ABP, PAP, CO, CI - Last Documented Arterial Blood Pressure 122/51 - Labs CBC & Chem 7: 04/28/24 10:25 04/25/24 05:52 Labs: Abnormal Lab Results - Last 24 Hours (Table) 04/28/24 Range/Units 10:25 WBC 11.0 H (3.8-10.6) k/uL RBC 3.11 L (3.80-5.40) m/uL Hgb 9.4 L (11.4-16.0) gm/dL Hct 29.9 L (34.0-46.0) %
--- NOTE | 2024-04-28 13:52 | P.PN ---
Subjective Progress Note Date: 04/27/24 Principal diagnosis: Reason for follow-up is parotitis perforated diverticulitis Patient is a 68-year-old female with a past medical history significant for hypertension osteoarthritis hypothyroidism, metastatic rectal cancer previous history of smoking presenting to the hospital for evaluation of abdominal pain, the patient CT has been suggestive of pneumoperitoneum with diagnosis of perforated sigmoid diverticulitis patient is status post laparotomy sigmoid resection and end colostomy. Patient did have a CT-guided drainage of the abdominal abscess completed on 04/22/2024. On today's visit that is 04/27/2024,the patient denies any fever or any chills, patient is breathing comfortably on room air, the patient denies chest pain shortness of breath and no significant cough, patient abdominal pain is currently controlled some nausea no vomiting down with the colostomy. Patient white count is 12.8 Objective - Vital Signs Vital signs: Vital Signs Temp 98.5 F 04/27/24 07:53 Pulse 95 04/27/24 11:32 Resp 18 04/27/24 11:32 BP 119/55 04/27/24 07:53 Pulse Ox 94 L 04/27/24 07:53 FiO2 40 04/14/24 16:00 Intake & Output 04/26/24 04/27/24 04/27/24 18:59 06:59 18:59 Intake Total 540 241.055 Output Total 10 10 720 Balance 530 231.055 -720 Weight 59.5 kg 60.5 kg Intake: Intake, IV Titration 41.055 Amount Heparin Sod,Pork in 0.45% 41.055 NaCl 25,000 unit In 0.45 % NaCl 1 250ml.bag @ 12 UNITS/KG/HR 7.14 mls/hr IV .Q24H [facility] Rx#: [id number] Oral 540 200 Output: Drainage 10 10 Right 10 10 Urine 520 Stool 200 Other: Voiding Method Indwelling Catheter Bedside Commode Diaper # Voids 1 0 ABP, PAP, CO, CI - Last Documented Arterial Blood Pressure 122/51 - Exam GENERAL DESCRIPTION: An elderly female lying in bed in no distress RESPIRATORY SYSTEM: Unlabored breathing , decreased breath sounds at bases HEART: S1 S2 regular rate and rhythm , ABDOMEN: Soft , mild tenderness EXTREMITIES: No edema feet - Labs CBC & Chem 7: 04/28/24 10:25 04/25/24 05:52 Labs: Abnormal Lab Results - Last 24 Hours (Table) 04/26/24 04/26/24 04/27/24 Range/Units 19:02 19:02 00:16 WBC 11.3 H (3.8-10.6) k/uL RBC 3.23 L (3.80-5.40) m/uL Hgb 9.8 L (11.4-16.0) gm/dL Hct 30.5 L (34.0-46.0) % Neutrophils # 9.6 H (1.3-7.7) k/uL Lymphocytes # 0.9 L (1.0-4.8) k/uL APTT 30.5 H (22.0-30.0) sec Stool Occult Blood Positive H (Negative) 04/27/24 04/27/24 04/27/24 Range/Units 00:42 05:40 05:40 WBC 12.8 H (3.8-10.6) k/uL RBC 3.44 L (3.80-5.40) m/uL Hgb 10.5 L (11.4-16.0) gm/dL Hct 32.5 L (34.0-46.0) % Neutrophils # 11.0 H (1.3-7.7) k/uL Lymphocytes # (1.0-4.8) k/uL APTT 90.9 H 63.1 H (22.0-30.0) sec Stool Occult Blood (Negative) Microbiology - Last 24 Hours (Table) 04/22/24 12:30 Gram Stain - Final Peritoneal Fluid Body Fluid Culture - Final Assessment and Plan (1) Sepsis Current Visit: Yes Status: Acute Code(s): A41.9 - SEPSIS, UNSPECIFIED ORGANISM SNOMED Code(s): 86994763 (2) Peritonitis Current Visit: Yes Status: Acute Code(s): K65.9 - PERITONITIS, UNSPECIFIED SNOMED Code(s): 20994809 (3) Perforation of sigmoid colon due to diverticulitis Current Visit: Yes Status: Acute Priority: High Code(s): K57.20 - DVTRCLI OF LG INT W PERFORATION AND ABSCESS W/O BLEEDING SNOMED Code(s): 10 40417806484086 Plan: 1patient presented to hospital with sepsis in this patient who did have hypotension tachycardia leukopenia meeting criteria for SIRS source is likely perforated sigmoid diverticulitis with peritonitis, we will need to cover for the enteric gram-negative both aerobes and anaerobes keeping in mind her history of metastatic rectal cancer chemo and has been out of the hospital need to cover for resistant gram-negative pathogen 2-penicillin allergy therapy limit the number of antibiotics safe to use 3-patient did have evidence of intra abdominal abscess status post IR drainage of the abscess on 04/22/2024 cultures obtained which are currently growing Clostridium 4- patient is afebrile patient white count slightly up today has developed a DVT to the right upper extremity vascular surgery recommending Eliquis will be better to avoid any PICC line or midline on DC Dictation was produced using [employer] dictation software. please excuse any gram matical, word or spelling errors. Time with Patient: Less than 30
--- NOTE | 2024-04-28 13:53 | P.PN ---
Subjective Progress Note Date: 04/28/24 Principal diagnosis: Reason for follow-up is parotitis perforated diverticulitis Patient is a 68-year-old female with a past medical history significant for hypertension osteoarthritis hypothyroidism, metastatic rectal cancer previous history of smoking presenting to the hospital for evaluation of abdominal pain, the patient CT has been suggestive of pneumoperitoneum with diagnosis of perforated sigmoid diverticulitis patient is status post laparotomy sigmoid resection and end colostomy. Patient did have a CT-guided drainage of the abdominal abscess completed on 04/22/2024. On today's visit that is 04/28/2024,the patient remains to be afebrile, patient is on room air not requiring supplemental oxygen and denies any shortness of breath no chest pain or cough.Patient did have some nausea but no vomiting, no abdominal pain and did have output in her colostomy Patient white count is down to 11,000 abdominal culture positive only for Clostridium Objective - Vital Signs Vital signs: Vital Signs Temp 98.1 F 04/28/24 08:13 Pulse 75 04/28/24 08:13 Resp 18 04/28/24 08:13 BP 138/76 04/28/24 08:13 Pulse Ox 94 L 04/28/24 08:13 FiO2 40 04/14/24 16:00 Intake & Output 04/27/24 04/28/24 04/28/24 18:59 06:59 18:59 Intake Total 680 Output Total 820 580 Balance -820 100 Weight 56 kg Intake: IV 320 0.9 KVO 220 Cefepime 2 gm In Sodium 100 Chloride 0.9% 100 ml @ 25 mls/hr IVPB Q8HR [facility] Rx# :[id number] Oral 360 Output: Drainage 60 Right 60 Urine 620 400 Stool 200 120 Other: Voiding Method Bedside Commode Diaper ABP, PAP, CO, CI - Last Documented Arterial Blood Pressure 122/51 - Exam GENERAL DESCRIPTION: An elderly female lying in bed in no distress RESPIRATORY SYSTEM: Unlabored breathing , decreased breath sounds at bases HEART: S1 S2 regular rate and rhythm , ABDOMEN: Soft , mild tenderness EXTREMITIES: No edema feet - Labs CBC & Chem 7: 04/28/24 10:25 04/25/24 05:52 Labs: Abnormal Lab Results - Last 24 Hours (Table) 04/28/24 Range/Units 10:25 WBC 11.0 H (3.8-10.6) k/uL RBC 3.11 L (3.80-5.40) m/uL Hgb 9.4 L (11.4-16.0) gm/dL Hct 29.9 L (34.0-46.0) % Assessment and Plan (1) Sepsis Current Visit: Yes Status: Acute Code(s): A41.9 - SEPSIS, UNSPECIFIED ORGANISM SNOMED Code(s): 46348134 (2) Peritonitis Current Visit: Yes Status: Acute Code(s): K65.9 - PERITONITIS, UNSPECIFIED SNOMED Code(s): 04940413 (3) Perforation of sigmoid colon due to diverticulitis Current Visit: Yes Status: Acute Priority: High Code(s): K57.20 - DVTRCLI OF LG INT W PERFORATION AND ABSCESS W/O BLEEDING SNOMED Code(s): 8925000079 464164 Plan: 1patient presented to hospital with sepsis in this patient who did have hypotension tachycardia leukopenia meeting criteria for SIRS source is likely perforated sigmoid diverticulitis with peritonitis, we will need to cover for the enteric gram-negative both aerobes and anaerobes keeping in mind her history of metastatic rectal cancer chemo and has been out of the hospital need to cover for resistant gram-negative pathogen 2-penicillin allergy therapy limit the number of antibiotics safe to use 3-patient did have evidence of intra abdominal abscess status post IR drainage of the abscess on 04/22/2024 cultures obtained which are currently growing Cl ostridium 4- patient is afebrile patient white count slightly up today has developed a DVT to the right upper extremity vascular surgery recommending Eliquis will be better to avoid any PICC line or midline on DC, will recommend a 10-day course of oral Ceftin and Flagyl on discharge and also getting another CAT scan before discontinuation of antibiotic while inpatient she will be on Rocephin and Flagyl Dictation was produced using [employer] dictation software. please excuse any grammatical, word or spelling errors. Time with Patient: Less than 30
--- NOTE | 2024-04-28 13:56 | P.PN ---
Subjective Progress Note Date: 04/28/24 Principal diagnosis: Status post exploratory laparotomy and sigmoid colon resection with colostomy On 04/21/2024, the patient remains on room air oxygen. No new complaints for now. No active drainage from the surgical wound site. Colostomy is functional. The patient is awaiting a IR guided drainage of the abdominal/pelvic fluid collection/abscesses. The patient remains on IV cefepime and Eraxis. Currently off diuretics. White cell count is 15 with a hemoglobin 9.9 and a platelet count of 224. Procalcitonin level level was at 0.5. No nausea. No emesis. The patient is postop day #11 following exploratory laparotomy and sigmoid colectomy and end colostomy for a perforated diverticulitis. She is also known to have metastatic rectal cancer. Her appetite is down. She is supplementing diet with some Ensure. No others significant events overnight. Overall con dition remains stable. 04/22/2024, the patient is being seen for a follow-up. Resting comfortably in bed. The patient is going to undergo a percutaneous drainage of the pelvic/abdominal fluid collection/abscesses. Surgical wound site is dry clean and intact. She is on room air oxygen. She remains on broad-spectrum antibiotics including Eraxis and cefepime. No active drainage from the abdomin al wound. The white cell count is 11 with a hemoglobin 9.8 and a platelet count of 251. Her colostomy is functional. Her procalcitonin level is at 0.5. Awake and alert and communicating. On 04/23/2024, the patient is status post drainage of the pelvic/abdominal fluid and output from the drainage has been minimal at this point in time. Surgical wound site is dry clean and intact and there is no active drainage. No fever. Remains on room air oxygen. No significant leukocytosis. White cell count is 11. Procalcitonin level is at 0.5 from 04/20/2024. The patient remains on Eraxis and cefepime. Colostomy is functional. She denies having any new complaints. Hemoglobin is at 9.8 On 04/24/2024, the patient is being seen for a follow-up. No active drainage from the abdominal percutaneous catheter. Remains on cefepime. Remains on Eraxis. Colostomy is functioning. Surgical wound site is dry clean and intact. White cell count 7.9 with a hemoglobin 9.6 and a platelet count of 243. Electrolytes are stable. BUN is 15 with a creatinine of 0.5. The patient is on room air oxygen. Denies having any significant shortness of breath. Overall, she remains quite weak and debilitated. Seen today on 04/25/2024, patient is doing well, she has no active pulmonary symptoms, she is on room air, not in any distress, colostomy is functional, surgical wound is dry, continues to have some vague abdominal discomfort, clearly she has no active pulmonary issues during my evaluation. Patient remains generally weak, and debilitated. She will eventually need to be transferred to a rehab facility. WBC count is 7.9 hemoglobin 9.6 electrolytes showed low potassium of 3.9 low sodium 130 bicarb is 34 BUN 15 creatinine 0.52 her last procalcitonin level last week was 0.5 Seen today on 04/26/2024, patient is doing well, on room air, not in any distress, she has no significant abdominal discomfort today, colostomy remains functional, discharge planning is in progress, patient may go to rehab facility. Labs were reviewed WBC count is 7.9 hemoglobin 9.6 procalcitonin level was 0.5 on 04/20/2023 remains on Eraxis, she is also on cefepime, being addressed by infectious disease on the case. Patient was seen today on 04/27/2024, patient is doing well from the pulmonary perspective, no active pulmonary symptoms, however venous Doppler of her right upper extremity showed evidence of subclavian vein and internal jugular vein thrombosis, patient was placed on heparin and she was seen by vascular surgery who recommended transitioning of heparin to Eliquis. Pulmonary miranda no cough no shortness of breath, obviously no evidence of pulmonary embolism based on clinical findings. And no need to do a CT angiogram of the chest since the patient is #1 asymptomatic #2 she will require anticoagulation treatment anyway. WBC count today is 12.8 hemoglobin 10.5 PTT is 63.1 Patient was seen today on 04/28/2024, patient is doing well, she is now on Eliquis for DVT involving the right upper extremity. Pulmonary miranda she is doing great, asymptomatic. Hardly any shortness of breath, no cough, no wheezing. WBC count is 11 hemoglobin is 9.4 PTT yesterday was 63, patient remains on antibiotics for her initial presentation of peritonitis sepsis and perforation of sigmoid colon/diverticulitis Objective - Vital Signs Vital signs: Vital Signs Temp 98.1 F 04/28/24 08:13 Pulse 75 04/28/24 08:13 Resp 18 04/28/24 08:13 BP 138/76 04/28/24 08:13 Pulse Ox 94 L 04/28/24 08:13 FiO2 40 04/14/24 16:00 Intake & Output 04/27/24 04/28/24 04/28/24 18:59 06:59 18:59 Intake Total 680 Output Total 820 580 Balance -820 100 Weight 56 kg Intake: IV 320 0.9 KVO 220 Cefepime 2 gm In Sodium 100 Chloride 0.9% 100 ml @ 25 mls/hr IVPB Q8HR [facility] Rx# :[id number] Oral 360 Output: Drainage 60 Right 60 Urine 620 400 Stool 200 120 Other: Voiding Method Bedside Commode Diaper ABP, PAP, CO, CI - Last Documented Arterial Blood Pressure 122/51 - Exam GENERAL: The patient is alert and oriented x3, in no distress, on room air HEENT: Pupils are round and equally reacting to light. EOMI. No scleral icterus. No conjunctival pallor. Normocephalic, atraumatic. No pharyngeal erythema. No thyromegaly. CARDIOVASCULAR: S1 and S2 present. No murmurs, rubs, or gallops. PULMONARY: Chest is clear to auscultation, no wheezing , no crackles. Port-A-Cath is noted in the right upper chest area ABDOMEN: Soft, nontender, nondistended, normoactive bowel sounds. No palpable organomegaly. Colostomy is functional MUSCULOSKELETAL: No joint swelling or deformity. EXTREMITIES: No cyanosis, clubbing, evidence of swelling noted in the right forearm and right upper extremity NEUROLOGICAL: Gross neurological examination did not reveal any focal deficits. SKIN: No rashes. no petechiae. - Labs CBC & Chem 7: 04/28/24 10:25 04/25/24 05:52 Labs: Abnormal Lab Results - Last 24 Hours (Table) 04/28/24 Range/Units 10:25 WBC 11.0 H (3.8-10.6) k/uL RBC 3.11 L (3.80-5.40) m/uL Hgb 9.4 L (11.4-16.0) gm/dL Hct 29.9 L (34.0-46.0) % Assessment and Plan Assessment: Impression: Pneumoperitoneum, status post exploratory laparotomy and sigmoid colon resection with end colostomy postoperative day #17 Acute hypoxic respiratory failure secondary to above Abdominal sepsis History of metastatic rectal carcinoma patient has been on chemotherapy recently leukopenia secondary to sepsis Lactic acidosis secondary to abdominal sepsis anterior chest wall subcutaneous abscess Diffuse anasarca improving this is mostly related to hypoproteinemia and hypoalbuminemia Benign essential hypertension Paroxysmal atrial fibrillation History of metastatic rectal carcinoma Acute deep vein thrombosis involving the right upper extremity, right subclavian vein, and right internal jugular vein, on Eliquis Recommendation: Continue Eliquis and monitor for any signs of bleeding or drop in hemoglobin \Continue incentive spirometry Continue antibiotics and antifungal as ordered by infectious disease Continue to monitor colostomy output and surgical wound site Continue oral amiodarone and metoprolol Continue GI prophylaxis Patient will eventually require rehab. Will continue to follow Time with Patient: Less than 30
[2024-04-28] MEDS: metroNIDAZOLE 500 MG TAB PO SCH (15:11)
--- NOTE | 2024-04-28 16:09 | P.PN ---
Subjective Progress Note Date: 04/28/24 SURGICAL PROGRESS NOTE CHIEF COMPLAINT: Perforated diverticulitis HISTORY OF PRESENT ILLNESS: Patient is postop day #18 status post exploratory laparotomy with sigmoid colectomy with end colostomy for perforated diverticulitis of the sigmoid colon. Patient is status post drain placement. Pain is controlled. Patient did sit at the side of the bed for about 15 minutes yesterday. Ritchie catheter was reinserted for urinary retention. She is on Eliquis for DVT right arm. Patient had been started on Eliquis. Afebrile. WBC 12.8 down to 11.0 Hgb 9.4 PHYSICAL EXAM: VITAL SIGNS: Reviewed. GENERAL: Well-developed in no acute distress. ABDOMEN: Soft. Nondistended. Ostomy with formed stool. Midline incisional dressing clean dry and intact drain in place with serosanguineous drainage NEUROLOGIC: Alert and oriented. Cranial nerves II through XII grossly intact. ASSESSMENT: 1. Perforated diverticulitis 2. Intra-abdominal abscess status post drain 3. Severe protein calorie malnutrition PLAN: -Encourage patient to increase activity level -Antibiotics per infectious disease -Patient can be discharge to [facility] from surgical standpoint when medically cleared Physician Trial [employer] Judge note has been reviewed by physician. Signing provider agrees with the documented findings, assessment, and plan of care. Attestation Patient seen and examined at bedside. No significant changes. Postoperative from exploratory laparotomy with sigmoid colectomy and end colostomy for perforated diverticulitis. Continue to discuss with the patient the importance of increasing activity. Patient has developed DVT and is now on anticoag for this. Continue with medical recommendations continue IV antibiotics per infectious disease. Continue to increase activity. Lexie Harden DO Objective - Vital Signs Vital signs: Vital Signs Temp 98.1 F 04/28/24 08:13 Pulse 65 04/28/24 15:16 Resp 16 04/28/24 15:16 BP 122/69 04/28/24 15:16 Pulse Ox 95 04/28/24 15:16 FiO2 40 04/14/24 16:00 Intake & Output 04/27/24 04/28/24 04/28/24 18:59 06:59 18:59 Intake Total 680 Output Total 820 580 120 Balance -820 100 -120 Weight 56 kg Intake: IV 320 0.9 KVO 220 Cefepime 2 gm In Sodium 100 Chloride 0.9% 100 ml @ 25 mls/hr IVPB Q8HR [facility] Rx# :[id number] Oral 360 Output: Drainage 60 Right 60 Urine 620 400 Stool 200 120 120 Other: Voiding Method Bedside Commode Diaper ABP, PAP, CO, CI - Last Documented Arterial Blood Pressure 122/51 - Labs CBC & Chem 7: 04/28/24 10:25 04/25/24 05:52 Labs: Abnormal Lab Results - Last 24 Hours (Table) 04/28/24 Range/Units 10:25 WBC 11.0 H (3.8-10.6) k/uL RBC 3.11 L (3.80-5.40) m/uL Hgb 9.4 L (11.4-16.0) gm/dL Hct 29.9 L (34.0-46.0) %
[2024-04-29 03:23] VITALS: RESP 16
[2024-04-29 07:13] LABS: HGB 9.8 gm/dL (11.4-16.0); Hypochromasia Marked; MCH 30.3 pg (25.0-35.0); MCHC 31.8 g/dL (31.0-37.0); MCV 95.4 fL (80.0-100.0); Mean Platelet Volume 7.6; Platelet Count 249 k/uL (150-450); RBC 3.25 m/uL (3.80-5.40); RDW 15.4 % (11.5-15.5); WBC 10.6 k/uL (3.8-10.6)
[2024-04-29 07:29] LABS: ALT 11 U/L (4-34); AST 30 U/L (14-36); African American GFR (CKD) >90 (>60 ml/min/1.73 sqM); Albumin 1.7 g/dL (3.5-5.0); Alkaline Phosphatase 170 U/L (38-126); Anion Gap 3 mmol/L; Blood Urea Nitrogen 20 mg/dL (7-17); Calcium 8.1 mg/dL (8.4-10.2); Carbon Dioxide 27 mmol/L (22-30); Chloride 102 mmol/L (98-107); Glucose 98 mg/dL (74-99); Non-African American GFR(CKD) >90 (>60 ml/min/1.73 sqM); Potassium 3.3 mmol/L (3.5-5.1); Sodium 132 mmol/L (137-145); Total Bilirubin 0.2 mg/dL (0.2-1.3); Total Protein 4.2 g/dL (6.3-8.2)
[2024-04-29 08:15] VITALS: TEMP 97.5
[2024-04-29 12:15] VITALS: BP 119/68; PULSE 59
[2024-04-29 12:50] VITALS: BMI 23.2
--- NOTE | 2024-04-29 14:54 | P.DS ---
Providers Date of admission: 04/10/24 08:15 Expected date of discharge: 04/29/24 Attending physician: Isa Cooper Consults: 04/10/24 06:47 Consult Physician Stat Consulting Provider: Jhonathan Mares Consult Reason/Comments: pneumoperitoneum Do you want consulting provider notified?: Already Contacted 04/10/24 08:12 Consult Physician Routine Consulting Provider: Cheryl Bonilla Consult Reason/Comments: your patient Do you want consulting provider notified?: Yes 04/10/24 09:40 Consult Physician Routine Consulting Provider: Manisha Couch Consult Reason/Comments: Peritonitis, pneumoperitoneum, perforated bowel Do you want consulting provider notified?: Yes 04/10/24 15:06 Consult Physician Routine Consulting Provider: Mali Keyes Consult Reason/Comments: ICU management Do you want consulting provider notified?: Already Contacted Primary care physician: Stated None Hospital Course: 68-year-old lady with past medical history significant for metastatic rectal c ancer brought to the ER for evaluation of lower abdominal pain. Patient that she has been not been feeling well for the last few days. Patient stated that she was having lower quad abdominal pain which was generalized, nonradiating, no aggravating or leaving factors associated abdominal pain. Patient also complaining of constipation and has not had a bowel movement in a number of days. There was no complaint of fever or chills. There was complaint of nausea but no vomiting. Patient stated she recently started chemotherapy. Because of these symptoms, patient presented to the ER Initial lab work done in the ER showed WBC 7.5, hemoglobin 9.5, platelet count 335, sodium 130, potassium 3, BUN 14, creatinine 0.53, lactate 4.5 EKG done in the ER showed heart rate of 116 , no ST segment elevation or depression seen, no T-wave inversions seen. CT abdominal pelvis done showed large pneumoperitoneum, mild circumferential wall thickening of a short segment of ascending colon and proximal sigmoid colon in associated with diverticula suggest diverticulitis versus colitis Patient admitted to internal medicine service Pneumoperitoneum, status post exploratory laparotomy and sigmoid colon resection with end colostomy Repeat CAT scan on 04/18 showing possible left pelvic abscess 4.1 cm and smaller perihepatic abscess Right upper extremity DVT in right IJ and subclavian vein Sepsis A-fib with RVR Acute hypoxic respiratory failure Acute sigmoid colon perforation Acute diverticulitis Hyponatremia Hypokalemia Lactic acidosis History of rectal cancer Monitor vital signs Monitor CBC Monitor CMP Continue telemetry monitoring status post exploratory laparotomy and sigmoid colon resection with end colostomy Repeat CAT scan on 04/18 showing possible left pelvic abscess 4.1 cm and smaller perihepatic abscess Status post drain placement by IR on 04/22 Continue cefepime, Eraxis, Continue Eliquis 10 mg twice daily twice a day for 7 days followed by 5 mg twice a day Pulmonology following Surgery following ID following Vascular surgery consulted, recommended oral anticoagulation, no need for any surgical intervention 04/11. Patient seen and examined. Patient currently intubated, opening eyes and following commands. 04/12. Patient seen examined. Patient is currently extubated. Alert, currently has NG tube in. Lab work done this morning showed WBC 9.9, hemoglobin 10.4, platelet count 190, sodium 137, potassium 3.3, BUN 18, creatinine 0.62, glucose 100. Patient went to [facility] overnight, currently on amiodarone. 04/13. Patient seen and examined. CurrentlyLaying in the chair. Still has NG tube in. Stated pain has slightly improved. Currently on IV amiodarone, heparin. 04/14. Patient seen examined. States she feels better. Patient started on clear liquid diet . Blood work done this morning showed WBC 10.2, hemoglobin 9.2, platelet count 190, sodium 137 potassium 3.7, BUN 18, creatinine 0.43. Patient currently on oral amiodarone and IV heparin 04/15. Patient seen and examined. Patient transferred out of ICU 04/16. Patient seen and examined. Blood work done this morning showed WBC 15.2, hemoglobin 10.2, sodium 136, potassium 3.6, BUN 16, creatinine 0.40. 04/17. Patient seen and examined. Complaining of nausea, poor appetite. 04/18 Patient still complains from abdominal pain about 7/10 Colostomy bag in the left lower quadrant is working She ate little bit. Currently she is on regular diet She has central vertical abdominal wound with dressing in place Ritchie catheter in place 04/19 Patient awake and alert, no vomiting, she tolerates liquid diet only Abdominal pain is ongoing and does not look significant worsening Left lower quadrant colostomy bag is in place with brown stool which looks somewhat loose but not watery. Repeat CT of the abdomen and pelvis yesterday showing organized fluid collection in the left pelvis about 4.1 cm suspicious for an abscess and another 1 in the perihepatic area. I reviewed the CAT scan by myself and agree Patient continued on cefepime and Eraxis was added as well Patient also on Eliquis for A-fib 04/20 Patient is still have nonspecific GI symptoms, her abdominal pain is expected No overt nausea vomiting but she has poor appetite, patient was encouraged to eat and drink more and she agrees Colostomy bag is working with brown stool with no issues for now. Her leukocytosis improving slowly gradually down to 15,000, she kept on Eliquis Antibiotics with cefepime and Eraxis was added yesterday 04/21 Patient is picking up on her diet and eating more and more every day Abdominal pain controlled Colostomy bag had small hard bowel movement today. Recent CAT scan showing pelvic abscess and perihepatic abscess, surgery team discussed the case with IR and plan for placement of a drain into the perihepatic abscess but not the pelvic abscess as it is small. The recommendation continue medical treatment for the pelvic abscess. Leukocytosis slightly trending down. Patient remains on IV cefepime and Eraxis. As per general surgery Eliquis was held for her A-fib therefore we put her on therapeutic dose of Lovenox with recommendation to hold it tonight and tomorrow till cleared by the surgeon for the procedure 04/22. Patient seen and examined. Currently n.p.o., going for IR guided drain placement. States she does not feel well. Complaining of lethargy and weakness 04/23. Patient seen and examined. Patient had IR guided drain placed yesterday. States she feels better. Denies any abdominal pain. Denies nausea or vomiting. Has ostomy output. 04/24. Patient seen and examined. States she feels better. Still having abdominal pain. Still has ostomy output. Blood work done showed WBC 7.9, hemoglobin 9.6, platelet count 243, sodium 130, potassium 3.3, BUN 15, creatinine 0.52 04/26. Patient seen and examined. States she feels better. Tolerating diet. 04/27. Patient seen and examined. Duplex ultrasound right upper extremity showed DVT in right IJ and subclavian vein. Vascular surgery evaluated, recommended keeping patient on oral anticoagulation 04/28. Patient seen and examined. States she feels slightly better. Appetite is poor. Vital signs are stable 04/29/2024; patient is clinically stable for discharge Patient Condition at Discharge: Critical Plan - Discharge Summary Discharge Rx Participant: No New Discharge Prescriptions: New cefuroxime axetiL [Ceftin] 500 mg PO BID #20 tab metroNIDAZOLE [Flagyl] 500 mg PO TID #30 tab Losartan [Cozaar] 25 mg PO DAILY tab HYDROcodone/APAP 10-325MG [[place] 10-325] 1 each PO Q4HR PRN 3 Days #10 tab PRN Reason: Pain Sennosides [Senokot] 8.6 mg PO DAILY tab Amiodarone [Cordarone] 200 mg PO BID #0 tab Apixaban [Eliquis] 5 mg PO BID 30 Days #60 tab Metoprolol Tartrate [Lopressor] 50 mg PO BID tab ALPRAZolam [Xanax] 0.25 mg PO BID PRN 3 Days #6 tab PRN Reason: Anxiety Continue Acetaminophen [Tylenol Arthritis] 650 mg PO Q4H PRN PRN Reason: Pain Discharge Medication List Acetaminophen [Tylenol Arthritis] 650 mg PO Q4H PRN 03/18/24 [History] cefuroxime axetiL [Ceftin] 500 mg PO BID #20 tab 04/28/24 [Rx] metroNIDAZOLE [Flagyl] 500 mg PO TID #30 tab 04/28/24 [Rx] ALPRAZolam [Xanax] 0.25 mg PO BID PRN 3 Days #6 tab 04/29/24 [Rx] Amiodarone [Cordarone] 200 mg PO BID #0 tab 04/29/24 [Rx] Apixaban [Eliquis] 5 mg PO BID 30 Days #60 tab 04/29/24 [Rx] HYDROcodone/APAP 10-325MG [[place] 10-325] 1 each PO Q4HR PRN 3 Days #10 tab 04/29/24 [Rx] Losartan [Cozaar] 25 mg PO DAILY tab 04/29/24 [Rx] Metoprolol Tartrate [Lopressor] 50 mg PO BID tab 04/29/24 [Rx] Sennosides [Senokot] 8.6 mg PO DAILY tab 04/29/24 [Rx] Follow up Appointment(s)/Referral(s): Marielle Guy NPC [Nurse Practitioner] - 04/21/24 2:45 am Juan Alvares, [NON-STAFF] - 1 Week None,Stated [Primary Care Provider] - 1-2 days [facility] [NON-STAFF] - 1 Week Activity/Diet/Wound Care/Special Instructions: Ostomy: Matt #[id number] one piece cut to fit appliance; changed every 3 to 5 days and if leaking; empty when half full Discharge Disposition: TRANSFER TO SNF/ECF
--- NOTE | 2024-04-29 15:18 | P.PN ---
Subjective Progress Note Date: 04/29/24 Principal diagnosis: Reason for follow-up is parotitis perforated diverticulitis Patient is a 68-year-old female with a past medical history significant for hypertension osteoarthritis hypothyroidism, metastatic rectal cancer previous history of smoking presenting to the hospital for evaluation of abdominal pain, the patient CT has been suggestive of pneumoperitoneum with diagnosis of perforated sigmoid diverticulitis patient is status post laparotomy sigmoid resection and end colostomy. Patient did have a CT-guided drainage of the abdominal abscess completed on 04/22/2024. On today's visit that is 04/29/2024, the patient continues to be afebrile, the patient is on room air and breathing comfortably, the Pt denies having any chest pain did have some cough no sputum, the patient denies having any abdominal pain no vomiting or any worsening output in the colostomy. The patient white count normalized to 10.6 creatinine 0.53 Objective - Vital Signs Vital signs: Vital Signs Temp 97.5 F L 04/29/24 08:08 Pulse 59 L 04/29/24 12:14 Resp 16 04/29/24 12:14 BP 119/68 04/29/24 12:14 Pulse Ox 95 04/29/24 12:14 FiO2 40 04/14/24 16:00 Intake & Output 04/28/24 04/29/24 04/29/24 18:59 06:59 18:59 Intake Total 680 Output Total 540 520 Balance 140 -520 Weight 54 kg 54 kg Intake: Intake, IV Titration 100 Amount Cefepime 2 gm In Sodium 100 Chloride 0.9% 100 ml @ 25 mls/hr IVPB Q8HR [facility] Rx# :[id number] Oral 580 Output: Drainage 20 Right 20 Urine 200 320 Stool 320 200 Other: Voiding Method Bedside Commode Indwelling Catheter Indwelling Catheter Diaper ABP, PAP, CO, CI - Last Documented Arterial Blood Pressure 122/51 - Exam GENERAL DESCRIPTION: An elderly female lying in bed in no distress RESPIRATORY SYSTEM: Unlabored breathing , decreased breath sounds at bases HEART: S1 S2 regular rate and rhythm , ABDOMEN: Soft , mild tenderness EXTREMITIES: No edema feet - Labs CBC & Chem 7: 04/29/24 05:56 04/29/24 05:56 Labs: Abnormal Lab Results - Last 24 Hours (Table) 04/29/24 04/29/24 Range/Units 05:56 05:56 RBC 3.25 L (3.80-5.40) m/uL Hgb 9.8 L (11.4-16.0) gm/dL Hct 31.0 L (34.0-46.0) % Sodium 132 L (137-145) mmol/L Potassium 3.3 L (3.5-5.1) mmol/L BUN 20 H (7-17) mg/dL Calcium 8.1 L (8.4-10.2) mg/dL Alkaline Phosphatase 170 H (38-126) U/L Total Protein 4.2 L (6.3-8.2) g/dL Albumin 1.7 L (3.5-5.0) g/dL Microbiology - Last 24 Hours (Table) 04/22/24 12:30 Gram Stain - Final Peritoneal Fluid Body Fluid Culture - Final Clostridium sp not perfringens Assessment and Plan (1) Sepsis Current Visit: Yes Status: Acute Code(s): A41.9 - SEPSIS, UNSPECIFIED ORGANISM SNOMED Code(s): 95641904 (2) Peritonitis Current Visit: Yes Status: Acute Code(s): K65.9 - PERITONITIS, UNSPECIFIED SNOMED Code(s): 75083834 (3) Perforation of sigmoid colon due to diverticulitis Current Visit: Yes Status: Acute Priority: High Code(s): K57.20 - DVTRCLI OF LG INT W PERFORATION AND ABSCESS W/O BLEEDING SNOMED Code(s): 8670527521987039 Plan: 1patient presented to hospital with sepsis in this patient who did have hypotension tachycardia leukopenia meeting criteria for SIRS source is likely perforated sigmoid diverticulitis with peritonitis, we will need to cover for the enteric gram-negative both aerobes and anaerobes keeping in mind her history of metastatic rectal cancer chemo and has been out of the hospital need to cover for resistant gram-negative pathogen 2-penicillin allergy therapy limit the number of antibiotics safe to use 3-patient did have evidence of intra abdominal abscess status post IR drainage of the abscess on 04/22/2024 cultures obtained which are currently growing Clostridium 4- patient is afebrile patient white count has normalized, plan is for 10-day course of oral Ceftin and Flagyl on discharge and also getting another CAT scan before discontinuation of antibiotic and close outpatient follow-up Dictation was produced using FlowJobation software. please excuse any grammatical, word or spelling errors. Time with Patient: Less than 30
--- NOTE | 2024-04-29 15:21 | P.PN ---
Subjective Progress Note Date: 04/29/24 Principal diagnosis: Status post exploratory laparotomy and sigmoid colon resection with colostomy On 04/21/2024, the patient remains on room air oxygen. No new complaints for now. No active drainage from the surgical wound site. Colostomy is functional. The patient is awaiting a IR guided drainage of the abdominal/pelvic fluid collection/abscesses. The patient remains on IV cefepime and Eraxis. Currently off diuretics. White cell count is 15 with a hemoglobin 9.9 and a platelet count of 224. Procalcitonin level level was at 0.5. No nausea. No emesis. The patient is postop day #11 following exploratory laparotomy and sigmoid colectomy and end colostomy for a perforated diverticulitis. She is also known to have metastatic rectal cancer. Her appetite is down. She is supplementing diet with some Ensure. No others significant events overnight. Overall con dition remains stable. 04/22/2024, the patient is being seen for a follow-up. Resting comfortably in bed. The patient is going to undergo a percutaneous drainage of the pelvic/abdominal fluid collection/abscesses. Surgical wound site is dry clean and intact. She is on room air oxygen. She remains on broad-spectrum antibiotics including Eraxis and cefepime. No active drainage from the abdomin al wound. The white cell count is 11 with a hemoglobin 9.8 and a platelet count of 251. Her colostomy is functional. Her procalcitonin level is at 0.5. Awake and alert and communicating. On 04/23/2024, the patient is status post drainage of the pelvic/abdominal fluid and output from the drainage has been minimal at this point in time. Surgical wound site is dry clean and intact and there is no active drainage. No fever. Remains on room air oxygen. No significant leukocytosis. White cell count is 11. Procalcitonin level is at 0.5 from 04/20/2024. The patient remains on Eraxis and cefepime. Colostomy is functional. She denies having any new complaints. Hemoglobin is at 9.8 On 04/24/2024, the patient is being seen for a follow-up. No active drainage from the abdominal percutaneous catheter. Remains on cefepime. Remains on Eraxis. Colostomy is functioning. Surgical wound site is dry clean and intact. White cell count 7.9 with a hemoglobin 9.6 and a platelet count of 243. Electrolytes are stable. BUN is 15 with a creatinine of 0.5. The patient is on room air oxygen. Denies having any significant shortness of breath. Overall, she remains quite weak and debilitated. Seen today on 04/25/2024, patient is doing well, she has no active pulmonary symptoms, she is on room air, not in any distress, colostomy is functional, surgical wound is dry, continues to have some vague abdominal discomfort, clearly she has no active pulmonary issues during my evaluation. Patient remains generally weak, and debilitated. She will eventually need to be transferred to a rehab facility. WBC count is 7.9 hemoglobin 9.6 electrolytes showed low potassium of 3.9 low sodium 130 bicarb is 34 BUN 15 creatinine 0.52 her last procalcitonin level last week was 0.5 Seen today on 04/26/2024, patient is doing well, on room air, not in any distress, she has no significant abdominal discomfort today, colostomy remains functional, discharge planning is in progress, patient may go to rehab facility. Labs were reviewed WBC count is 7.9 hemoglobin 9.6 procalcitonin level was 0.5 on 04/20/2023 remains on Eraxis, she is also on cefepime, being addressed by infectious disease on the case. Patient was seen today on 04/27/2024, patient is doing well from the pulmonary perspective, no active pulmonary symptoms, however venous Doppler of her right upper extremity showed evidence of subclavian vein and internal jugular vein thrombosis, patient was placed on heparin and she was seen by vascular surgery who recommended transitioning of heparin to Eliquis. Pulmonary miranda no cough no shortness of breath, obviously no evidence of pulmonary embolism based on clinical findings. And no need to do a CT angiogram of the chest since the patient is #1 asymptomatic #2 she will require anticoagulation treatment anyway. WBC count today is 12.8 hemoglobin 10.5 PTT is 63.1 Patient was seen today on 04/28/2024, patient is doing well, she is now on Eliquis for DVT involving the right upper extremity. Pulmonary miranda she is doing great, asymptomatic. Hardly any shortness of breath, no cough, no wheezing. WBC count is 11 hemoglobin is 9.4 PTT yesterday was 63, patient remains on antibiotics for her initial presentation of peritonitis sepsis and perforation of sigmoid colon/diverticulitis Patient was seen today on 04/29/2024, patient is doing well today, remains relatively asymptomatic no active pulmonary symptoms no cough no wheezing no shortness of breath even her abdominal pain seems to have resolved. Patient is being considered for discharge she is now on Eliquis for her DVT in the right upper extremity. WBC count today is 10.6 hemoglobin 9.8 electrolytes are normal except for low potassium of 3.3 Objective - Vital Signs Vital signs: Vital Signs Temp 97.5 F L 04/29/24 08:08 Pulse 59 L 04/29/24 12:14 Resp 16 04/29/24 12:14 BP 119/68 04/29/24 12:14 Pulse Ox 95 04/29/24 12:14 FiO2 40 04/14/24 16:00 Intake & Output 04/28/24 04/29/24 04/29/24 18:59 06:59 18:59 Intake Total 680 222 Output Total 540 520 Balance 140 -520 222 Weight 54 kg 54 kg Intake: Intake, IV Titration 100 Amount Cefepime 2 gm In Sodium 100 Chloride 0.9% 100 ml @ 25 mls/hr IVPB Q8HR [facility] Rx# :[id number] Oral 580 222 Output: Drainage 20 Right 20 Urine 200 320 Stool 320 200 Other: Voiding Method Bedside Commode Indwelling Catheter Indwelling Catheter Diaper ABP, PAP, CO, CI - Last Documented Arterial Blood Pressure 122/51 - Exam GENERAL: The patient is alert and oriented x3, in no distress, on room air HEENT: Pupils are round and equally reacting to light. EOMI. No scleral icterus. No conjunctival pallor. Normocephalic, atraumatic. No pharyngeal erythema. No thyromegaly. CARDIOVASCULAR: S1 and S2 present. No murmurs, rubs, or gallops. PULMONARY: Chest is clear to auscultation, no wheezing , no crackles. Port-A-Cath is noted in the right upper chest area ABDOMEN: Soft, nontender, nondistended, normoactive bowel sounds. No palpable organomegaly. Colostomy is functional MUSCULOSKELETAL: No joint swelling or deformity. EXTREMITIES: No cyanosis, clubbing, evidence of swelling noted in the right forearm and right upper extremity NEUROLOGICAL: Gross neurological examination did not reveal any focal deficits. SKIN: No rashes. no petechiae. - Labs CBC & Chem 7: 04/29/24 05:56 04/29/24 05:56 Labs: Abnormal Lab Results - Last 24 Hours (Table) 04/29/24 04/29/24 Range/Units 05:56 05:56 RBC 3.25 L (3.80-5.40) m/uL Hgb 9.8 L (11.4-16.0) gm/dL Hct 31.0 L (34.0-46.0) % Sodium 132 L (137-145) mmol/L Potassium 3.3 L (3.5-5.1) mmol/L BUN 20 H (7-17) mg/dL Calcium 8.1 L (8.4-10.2) mg/dL Alkaline Phosphatase 170 H (38-126) U/L Total Protein 4.2 L (6.3-8.2) g/dL Albumin 1.7 L (3.5-5.0) g/dL Microbiology - Last 24 Hours (Table) 04/22/24 12:30 Gram Stain - Final Peritoneal Fluid Body Fluid Culture - Final Clostridium sp not perfringens Assessment and Plan Assessment: Impression: Pneumoperitoneum, status post exploratory laparotomy and sigmoid colon resection with end colostomy postoperative day #18 Acute hypoxic respiratory failure secondary to above Abdominal sepsis History of metastatic rectal carcinoma patient has been on chemotherapy recently leukopenia secondary to sepsis Lactic acidosis secondary to abdominal sepsis anterior chest wall subcutaneous abscess Diffuse anasarca improving this is mostly related to hypoproteinemia and hypoalbuminemia Benign essential hypertension Paroxysmal atrial fibrillation History of metastatic rectal carcinoma Acute deep vein thrombosis involving the right upper extremity, right subclavian vein, and right internal jugular vein, on Eliquis Recommendation: Agree with discharge planning to rehab Continue Eliquis \Continue incentive spirometry Antibiotics as per ID on the case Will see as needed. Time with Patient: Less than 30
--- NOTE | 2024-04-29 15:28 | P.PN ---
Subjective Progress Note Date: 04/29/24 SURGICAL PROGRESS NOTE CHIEF COMPLAINT: Perforated diverticulitis HISTORY OF PRESENT ILLNESS: Patient is postop day #19 status post exploratory laparotomy with sigmoid colectomy with end colostomy for perforated diverticulitis of the sigmoid colon. Patient is status post drain placement with only 20 mL output of serosanguineous fluid yesterday. Her pain is controlled. She sat at the side of bed again yesterday. They are working on transferring her to rehab today. Afebrile. WBC normalized at 10.6 Hgb 9.8 platelets 249 PHYSICAL EXAM: VITAL SIGNS: Reviewed. GENERAL: Well-developed in no acute distress. ABDOMEN: Soft. Nondistended. Ostomy with formed stool. Midline incision with minimal drainage. No erythema. Drain in place with minimal output NEUROLOGIC: Alert and oriented. Cranial nerves II through XII grossly intact. ASSESSMENT: 1. Perforated diverticulitis 2. Intra-abdominal abscess status post drain 3. Severe protein calorie malnutrition PLAN: -Agree with transfer to [facility] for rehab -Discharge antibiotics per ID service -Discharge with drain -Continue pain management Physician Laundry Room Attendant note has been reviewed by physician. Signing provider agrees with the documented findings, assessment, and plan of care. Objective - Vital Signs Vital signs: Vital Signs Temp 97.5 F L 04/29/24 08:08 Pulse 59 L 04/29/24 12:14 Resp 16 04/29/24 12:14 BP 119/68 04/29/24 12:14 Pulse Ox 95 04/29/24 12:14 FiO2 40 04/14/24 16:00 Intake & Output 04/28/24 04/29/24 04/29/24 18:59 06:59 18:59 Intake Total 680 222 Output Total 540 520 Balance 140 -520 222 Weight 54 kg 54 kg Intake: Intake, IV Titration 100 Amount Cefepime 2 gm In Sodium 100 Chloride 0.9% 100 ml @ 25 mls/hr IVPB Q8HR [facility] Rx# :[id number] Oral 580 222 Output: Drainage 20 Right 20 Urine 200 320 Stool 320 200 Other: Voiding Method Bedside Commode Indwelling Catheter Indwelling Catheter Diaper ABP, PAP, CO, CI - Last Documented Arterial Blood Pressure 122/51 - Labs CBC & Chem 7: 04/29/24 05:56 04/29/24 05:56 Labs: Abnormal Lab Results - Last 24 Hours (Table) 04/29/24 04/29/24 Range/Units 05:56 05:56 RBC 3.25 L (3.80-5.40) m/uL Hgb 9.8 L (11.4-16.0) gm/dL Hct 31.0 L (34.0-46.0) % Sodium 132 L (137-145) mmol/L Potassium 3.3 L (3.5-5.1) mmol/L BUN 20 H (7-17) mg/dL Calcium 8.1 L (8.4-10.2) mg/dL Alkaline Phosphatase 170 H (38-126) U/L Total Protein 4.2 L (6.3-8.2) g/dL Albumin 1.7 L (3.5-5.0) g/dL Microbiology - Last 24 Hours (Table) 04/22/24 12:30 Gram Stain - Final Peritoneal Fluid Body Fluid Culture - Final Clostridium sp not perfringens
== END 2024-04-29 17:27 | DRG 853 ==
LOC: EC 04:40 → 5NMEDONC 08:15 → 4SSUR 11:15 → 2SICU 12:31 → 3SCARD 04-15 11:32
PROVIDERS: ADMIT Hospitalist; ATTEND Hospitalist
PROC: 5A1935Z Respiratory Ventilation, Less than 24 Consecutive Hours (ICD-10-PCS; 2024-04-10)
PROC: 0BH17EZ Insertion of Endotracheal Airway into Trachea, Via Natural or Artificial Opening (ICD-10-PCS; 2024-04-10)
PROC: 0D9670Z Drainage of Stomach with Drainage Device, Via Natural or Artificial Opening (ICD-10-PCS; 2024-04-10)
PROC: 02HV33Z Insertion of Infusion Device into Superior Vena Cava, Percutaneous Approach (ICD-10-PCS; 2024-04-10)
PROC: 0D1M0Z4 Bypass Descending Colon to Cutaneous, Open Approach (ICD-10-PCS; principal; 2024-04-10 09:27)
PROC: 0DTN0ZZ Resection of Sigmoid Colon, Open Approach (ICD-10-PCS; principal; 2024-04-10 09:27)
DX: A41.9 Sepsis, unspecified organism (principal); E43 Unspecified severe protein-calorie malnutrition; J96.01 Acute respiratory failure with hypoxia; K65.1 Peritoneal abscess; C18.4 Malignant neoplasm of transverse colon; C20 Malignant neoplasm of rectum; C79.9 Secondary malignant neoplasm of unspecified site; E87.1 Hypo-osmolality and hyponatremia; E87.20 Acidosis, unspecified; I42.1 Obstructive hypertrophic cardiomyopathy; I82.621 Acute embolism and thrombosis of deep veins of right upper extremity; I82.B11 Acute embolism and thrombosis of right subclavian vein; I82.C11 Acute embolism and thrombosis of right internal jugular vein; J90 Pleural effusion, not elsewhere classified; J98.11 Atelectasis; K57.20 Diverticulitis of large intestine with perforation and abscess without bleeding; L02.213 Cutaneous abscess of chest wall; R18.8 Other ascites; I10 Essential (primary) hypertension; I34.0 Nonrheumatic mitral (valve) insufficiency; E77.8 Other disorders of glycoprotein metabolism; E03.9 Hypothyroidism, unspecified; E88.09 Other disorders of plasma-protein metabolism, not elsewhere classified; M19.90 Unspecified osteoarthritis, unspecified site; E87.6 Hypokalemia; F41.9 Anxiety disorder, unspecified; I48.0 Paroxysmal atrial fibrillation; K11.20 Sialoadenitis, unspecified; R59.0 Localized enlarged lymph nodes; K59.00 Constipation, unspecified; Z87.891 Personal history of nicotine dependence; Z88.0 Allergy status to penicillin; Z90.710 Acquired absence of both cervix and uterus; Z87.442 Personal history of urinary calculi; Z86.0100 Personal history of colon polyps, unspecified; Z96.643 Presence of artificial hip joint, bilateral; Z79.899 Other long term (current) drug therapy; Z68.23 Body mass index [BMI] 23.0-23.9, adult
CPT/HCPCS: 36415; 71045; 74176; 74177; 75989; 80048; 80053; 81003; 82040; 82272; 82805; 83605; 83735; 84100; 84132; 84145; 84155; 84439; 84443; 85025; 85027; 85610; 85730; 86140; 86850; 86900; 86901; 87040; 87070; 87075; 87205; 88307; 93005; 93306; 94002; 94003; 94760; 96361; 96365; 96366; 96367; 96375; 96376; 99291

== ENCOUNTER 2024-04-30 08:31 | Inpatient (IN) | payer MEDICARE ==
[2024-04-30 09:41] LABS: Basophils % (A) 0 %; Eosinophils # (A) 0.1 k/uL (0-0.7); Eosinophils % (A) 1 %; HCT 34.1 % (34.0-46.0); HGB 10.9 gm/dL (11.4-16.0); Hypochromasia Slight; Lymphocytes # (A) 1.1 k/uL (1.0-4.8); Lymphocytes % (A) 11 %; MCH 29.5 pg (25.0-35.0); MCHC 31.9 g/dL (31.0-37.0); MCV 92.5 fL (80.0-100.0); Mean Platelet Volume 7.4; Monocytes # (A) 0.5 k/uL (0-1.0); Monocytes % (A) 5 %; Neutrophils # (A) 8.5 k/uL (1.3-7.7); Neutrophils % (A) 82 %; Platelet Count 270 k/uL (150-450); RBC 3.68 m/uL (3.80-5.40); RDW 15.6 % (11.5-15.5); WBC 10.3 k/uL (3.8-10.6)
[2024-04-30 10:01] LABS: ALT 13 U/L (4-34); AST 37 U/L (14-36); African American GFR (CKD) >90 (>60 ml/min/1.73 sqM); Albumin 1.9 g/dL (3.5-5.0); Alkaline Phosphatase 206 U/L (38-126); Anion Gap 2 mmol/L; Blood Urea Nitrogen 23 mg/dL (7-17); Calcium 8.3 mg/dL (8.4-10.2); Carbon Dioxide 28 mmol/L (22-30); Chloride 102 mmol/L (98-107); Glucose 114 mg/dL (74-99); Lipase 49 U/L (23-300); Non-African American GFR(CKD) >90 (>60 ml/min/1.73 sqM); Potassium 3.6 mmol/L (3.5-5.1); Sodium 132 mmol/L (137-145); Total Bilirubin 0.4 mg/dL (0.2-1.3); Total Protein 4.7 g/dL (6.3-8.2)
--- NOTE | 2024-04-30 10:10 | ED ---
General Adult HPI - General Chief complaint: Recheck/Abnormal Lab/Rx Stated complaint: drain issue Time Seen by Provider: 04/30/24 08:40 Source: patient, EMS Mode of arrival: EMS Limitations: no limitations - History of Present Illness Initial comments: 68-year-old female with past medical history of metastatic rectal cancer, recent perforated diverticula with colostomy who presents to the emergency department reporting that her hepatic drain had been removed. Patient was discharged yesterday from our facility to [facility]. This morning they noted that the patient's drain fell out. It was placed on April 22 for an intra-abdominal abscess. Patient was discharged yesterday on antibiotics. She admits to nausea last night. Does have some generalized abdominal pain but states it is no worse than what it was previously. She denies any fevers. No other alleviating, precipitating or modifying factors - Related Data Home Medications Medication Instructions Recorded Confirmed Acetaminophen [Tylenol Arthritis] 650 mg PO Q4H PRN 03/18/24 04/30/24 Previous Rx's Medication Instructions Recorded Amiodarone [Cordarone] 200 mg PO BID #0 tab 04/29/24 Apixaban [Eliquis] 5 mg PO BID 30 Days #60 tab 04/29/24 Losartan [Cozaar] 25 mg PO DAILY tab 04/29/24 Metoprolol Tartrate [Lopressor] 50 mg PO BID tab 04/29/24 Sennosides [Senokot] 8.6 mg PO DAILY tab 04/29/24 ALPRAZolam [Xanax] 0.25 mg PO BID PRN 3 Days #6 tab 05/06/24 Ascorbic Acid [Vitamin C] 500 mg PO DAILY tab 05/06/24 Cholecalciferol [Vitamin D3 (25 50 mcg PO DAILY tab 05/06/24 Mcg = 1000 Iu)] HYDROcodone/APAP 10-325MG [[place] 1 tab PO Q4HR PRN #6 tab 05/06/24 10-325] cefuroxime axetiL [Ceftin] 500 mg PO BID 14 Days #28 tab 05/06/24 guaiFENesin SYRUP 100MG/5ML 200 mg PO Q6HR PRN ml 05/06/24 [Robitussin] metroNIDAZOLE [Flagyl] 500 mg PO TID #14 tab 05/06/24 Allergies Allergy/AdvReac Type Severity Reaction Status Date / Time Penicillins Allergy Rash/Hives Verified 04/30/24 12:47 Review of Systems ROS Statement: Those systems with pertinent positive or pertinent negative responses have been documented in the HPI. ROS Other: All systems not noted in ROS Statement are negative. Past Medical History Past Medical History: Cancer, Hypertension, Osteoarthritis (OA), Thyroid Disorder Additional Past Medical History / Comment(s): only took BP med when broke hip & took for short time only, hx. palpitations. Hemorrhoids. Pt. stated she quit smoing in october 2020. colon cancer, kidney stones, History of Any Multi-Drug Resistant Organisms: None Reported Past Surgical History: Hysterectomy, Joint Replacement Additional Past Surgical History / Comment(s): hermann hip replacements, to rt hip orif, colonoscopy Past Anesthesia/Blood Transfusion Reactions: Postoperative Nausea & Vomiting (P ONV) Additional Past Anesthesia/Blood Transfusion Reaction / Comment(s): severe ponv, after colonscopy bp shot up with severe vomitting. no blood tx hx Past Psychological History: Anxiety Smoking Status: Former smoker Past Alcohol Use History: None Reported Past Drug Use History: None Reported - Past Family History Father Family Medical History: Congestive Heart Failure (CHF), Dementia, Osteoarthritis (OA) Mother Additional Family Medical History / Comment(s): Breast CA, skin CA Brother(s) Family Medical History: Cancer Additional Family Medical History / Comment(s): bone marrow cancer General Exam Limitations: no limitations General appearance: alert, in no apparent distress Head exam: Present: atraumatic, normocephalic, normal inspection Eye exam: Present: normal appearance, PERRL, EOMI. Absent: scleral icterus, conjunctival injection, periorbital swelling ENT exam: Present: normal exam, mucous membranes moist Neck exam: Present: normal inspection. Absent: tenderness, meningismus, lymphadenopathy Respiratory exam: Present: normal lung sounds bilaterally. Absent: respiratory distress, wheezes, rales, rhonchi, stridor Cardiovascular Exam: Present: regular rate, normal rhythm, normal heart sounds. Absent: systolic murmur, diastolic murmur, rubs, gallop, clicks GI/Abdominal exam: Present: soft, tenderness (generalized), normal bowel sounds, other (Midline incision with dressing that has some dried serosanguineous fluid. Colostomy in left lower quadrant. Padding for IR drain is in place however drain is removed from patient). Absent: distended, guarding, rebound, rigid Extremities exam: Present: normal inspection, full ROM, normal capillary refill. Absent: tenderness, pedal edema, joint swelling, calf tenderness Back exam: Present: normal inspection Neurological exam: Present: alert, oriented X3, CN II-XII intact Psychiatric exam: Present: normal affect, normal mood Skin exam: Present: warm, dry, intact, normal color. Absent: rash Course Vital Signs 04/30/24 04/30/24 08:34 12:16 Temperature 97.6 F Pulse Rate 80 82 Respiratory 18 17 Rate Blood Pressure 138/86 123/84 O2 Sat by Pulse 95 94 L Oximetry Medical Decision Making - Medical Decision Making Was pt. sent in by a medical professional or institution (GEOFF Robles, TREADLE CUT OFF SAW OPERATOR, urgent care, hospital, or [facility]...) When possible be specific @ -Patient sent from [facility] Did you speak to anyone other than the patient for history (EMS, parent, family, police, friend...)? What history was obtained from this source @ -Spoke with EMS Did you review nursing and triage notes (agree or disagree)? Why? @ -I reviewed and agree with nursing and triage notes Were old charts reviewed (outside hosp., previous admission, EMS record, old EKG, old radiological studies, urgent care reports/EKG's, [facility] records)? Report findings @ -I reviewed discharge summary from yesterday Differential Diagnosis (chest pain, altered mental status, abdominal pain women, abdominal pain men, vaginal bleeding, weakness, fever, dyspnea, syncope, headache, dizziness, GI bleed, back pain, seizure, CVA, palpatations, mental health, musculoskeletal)? @ -Subhepatic abscess, accidental HEATHER drain removal, intentional HEATHER drain removal EKG interpreted by me (3pts min.). @ -Not done X-rays interpreted by me (1pt min.). @ -None done CT interpreted by me (1pt min.). @ -Yes and continues to demonstrate subhepatic abscess U/S interpreted by me (1pt. min.). @ -None done What testing was considered but not performed or refused? (CT, X-rays, U/S, labs)? Why? @ -None What meds were considered but not given or refused? Why? @ -None Did you discuss the management of the patient with other professionals (professionals i.e. DrMerlene, PA, TREADLE CUT OFF SAW OPERATOR, lab, RT, psych nurse, socially responsible investment adviser, environmental attorney, teacher, giving officer, ed case manager)? Give summary @ -Spoke with dr. mares who states that the drain should be put back in. Requesting medicine admission with him on consult as well as IR. Patient should have been admitted to Dr. Lange. I did call him and discussed the case with him. As the patient was just released from the [facility] service, he is agreeable that [facility] can have the patient back due to her prolonged and complicated course. I spoke with Dr. Oakley who did agree to the admission Was smoking cessation discussed for >3mins.? @ -No Was critical care preformed (if so, how long)? @ -No Were there social determinants of health that impacted care today? How? (Homele ssness, low income, unemployed, alcoholism, drug addiction, transportation, low edu. Level, literacy, decrease access to med. care, long-term, rehab)? @ -Patient is currently in rehab Was there de-escalation of care discussed even if they declined (Discuss DNR or withdrawal of care, Hospice)? DNR status @ -No What co-morbidities impacted this encounter? (DM, HTN, Smoking, COPD, CAD, Cancer, CVA, ARF, Chemo, Hep., AIDS, mental health diagnosis, sleep apnea, morbid obesity)? @ -Rectal cancer, diverticulitis Was patient admitted / discharged? Hospital course, mention meds given and route, prescriptions, significant lab abnormalities, going to OR and other pertinent info. @ -Upon arrival patient seen and evaluated in bed 22. Thorough history and physical exam was performed. Drain has been disconnected from the patient's body. I did perform a CT which demonstrates continued abscess. I called and spoke with Dr. Mares who states that the drain should be replaced. I spoke with Dr. lange as the patient should have been admitted to him. Because the patient is known to [facility], he states that I can admit the patient to [facility]. I spoke with Dr. Oakley for the admission Undiagnosed new problem with uncertain prognosis? @ -No Drug Therapy requiring intensive monitoring for toxicity (Heparin, Nitro, Insulin, Cardizem)? @ -No Were any procedures done? @ -No Diagnosis/symptom? @ -Acute HEATHER drain dislodgment, ruptured diverticula with colostomy placement, intra-abdominal abscess Acute, or Chronic, or Acute on Chronic? @ -Acute Uncomplicated (without systemic symptoms) or Complicated (systemic symptoms)? @ -Complicated Side effects of treatment? @ -No Exacerbation, Progression, or Severe Exacerbation? @ -No Poses a threat to life or bodily function? How? (Chest pain, [place], [place], pneumonia, PE, COPD, DKA, ARF, appy, cholecystitis, CVA, Diverticulitis, Homicidal, Suicidal, threat to staff... and all critical care pts) @ -No - Lab Data Result diagrams: 05/06/24 06:39 05/06/24 06:39 Lab Results 04/30/24 04/30/24 05/01/24 Range/Units 08:56 08:56 01:14 WBC 10.3 (3.8-10.6) k/uL RBC 3.68 L (3.80-5.40) m/uL Hgb 10.9 L (11.4-16.0) gm/dL Hct 34.1 (34.0-46.0) % MCV 92.5 (80.0-100.0) fL MCH 29.5 (25.0-35.0) pg MCHC 31.9 (31.0-37.0) g/dL RDW 15.6 H (11.5-15.5) % Plt Count 270 (150-450) k/uL MPV 7.4 Immature Gran % (Auto) % Absolute Nucleated RBC % Neutrophils % 82 % Lymphocytes % 11 % Monocytes % 5 % Eosinophils % 1 % Basophils % 0 % Immature Gran # (0.00-0.04) X 10*3/uL Neutrophils # 8.5 H (1.3-7.7) k/uL Lymphocytes # 1.1 (1.0-4.8) k/uL Monocytes # 0.5 (0-1.0) k/uL Eosinophils # 0.1 (0-0.7) k/uL Basophils # 0.0 (0-0.2) k/uL NRBC/100 WBC Diff (0.00-0.01) X 10*3/uL Hypochromasia Slight Sodium 132 L (137-145) mmol/L Potassium 3.6 (3.5-5.1) mmol/L Chloride 102 (98-107) mmol/L Carbon Dioxide 28 (22-30) mmol/L Anion Gap 2 mmol/L BUN 23 H (7-17) mg/dL Creatinine 0.56 (0.52-1.04) mg/dL Est GFR (CKD-EPI) (>=60) Est GFR (CKD-EPI)AfAm >90 (>60 ml/min/1.73 sqM) Est GFR (CKD-EPI)NonAf >90 (>60 ml/min/1.73 sqM) BUN/Creatinine Ratio (12.00-20.00) Ratio Glucose 114 H (74-99) mg/dL Calcium 8.3 L (8.4-10.2) mg/dL Total Bilirubin 0.4 (0.2-1.3) mg/dL AST 37 H (14-36) U/L ALT 13 (4-34) U/L Alkaline Phosphatase 206 H (38-126) U/L Total Protein 4.7 L (6.3-8.2) g/dL Albumin 1.9 L (3.5-5.0) g/dL Lipase 49 (23-300) U/L Influenza Type A (PCR) Not Detected (Not Detectd) Influenza Type B (PCR) Not Detected (Not Detectd) RSV (PCR) Not Detected (Not Detectd) SARS-CoV-2 (PCR) Detected A (Not Detectd) 05/01/24 05/01/24 Range/Units 03:08 03:08 WBC 10.17 H (3.8-10.6) k/uL RBC 3.11 L (3.80-5.40) m/uL Hgb 9.2 L (11.4-16.0) gm/dL Hct 28.9 L (34.0-46.0) % MCV 92.9 (80.0-100.0) fL MCH 29.6 (25.0-35.0) pg MCHC 31.8 L (31.0-37.0) g/dL RDW 16.2 H (11.5-15.5) % Plt Count 291 (150-450) k/uL MPV 10.8 Immature Gran % (Auto) 1.30 % Absolute Nucleated RBC 0 % Neutrophils % 77.7 % Lymphocytes % 11.4 % Monocytes % 8.8 % Eosinophils % 0.4 % Basophils % 0.4 % Immature Gran # 0.13 H (0.00-0.04) X 10*3/uL Neutrophils # 7.91 H (1.3-7.7) k/uL Lymphocytes # 1.16 (1.0-4.8) k/uL Monocytes # 0.89 (0-1.0) k/uL Eosinophils # 0.04 (0-0.7) k/uL Basophils # 0.04 (0-0.2) k/uL NRBC/100 WBC Diff 0 (0.00-0.01) X 10*3/uL Hypochromasia Sodium 133 L (137-145) mmol/L Potassium 3.4 L (3.5-5.1) mmol/L Chloride 101 (98-107) mmol/L Carbon Dioxide 25.8 (22-30) mmol/L Anion Gap 6.20 mmol/L BUN 19.0 (7-17) mg/dL Creatinine 0.6 (0.52-1.04) mg/dL Est GFR (CKD-EPI) 97 (>=60) Est GFR (CKD-EPI)AfAm (>60 ml/min/1.73 sqM) Est GFR (CKD-EPI)NonAf (>60 ml/min/1.73 sqM) BUN/Creatinine Ratio 31.67 H (12.00-20.00) Ratio Glucose 96 (74-99) mg/dL Calcium 7.9 L (8.4-10.2) mg/dL Total Bilirubin (0.2-1.3) mg/dL AST (14-36) U/L ALT (4-34) U/L Alkaline Phosphatase (38-126) U/L Total Protein (6.3-8.2) g/dL Albumin (3.5-5.0) g/dL Lipase (23-300) U/L Influenza Type A (PCR) (Not Detectd) Influenza Type B (PCR) (Not Detectd) RSV (PCR) (Not Detectd) SARS-CoV-2 (PCR) (Not Detectd) Disposition Clinical Impression: Intra-abdominal abscess, Perforation of sigmoid colon due to diverticulitis Disposition: ADMITTED IP TO THIS HOSP Condition: Fair Is patient prescribed a controlled substance at d/c from ED?: No Time of Disposition: 12:19 Decision to Admit Reason: Admit from EC Decision Date: 04/30/24 Decision Time: 12:19
--- NOTE | 2024-04-30 11:38 | CT ---
EXAMINATION TYPE: CT abdomen pelvis w con DATE OF EXAM: 04/30/2024 11:16 AM COMPARISON: CT abdomen pelvis most recent from 04/22/2024, 04/18/2024 CLINICAL INDICATION: Female, 68 years old with history of liver abscess; drain tube fell out TECHNIQUE: Axial CT abdomen pelvis w con;Sagittal and coronal reformats were created on a separate w orkstation. Contrast used:100 ml mL of Isovue 300 with IV Contrast, (none if empty) Oral contrast used: without Oral Contrast (none if empty) CT DLP: 1070.1 mGycm, Automated exposure control for dose reduction was used. FINDINGS: LOWER CHEST: Small bilateral pleural effusions with associated atelectasis. ABDOMEN LIVER: Unremarkable GALLBLADDER AND BILE DUCTS: Unremarkable. PANCREAS: Unremarkable. SPLEEN: Unremarkable. ADRENAL GLANDS: Unremarkable. KIDNEYS AND URETERS: No evidence of hydronephrosis or renal calculus. The ureters are unremarkable. PELVIS BLADDER: Nondistended with Ritchie catheter in place. REPRODUCTIVE: Unremarkable. ABDOMEN & PELVIS STOMACH AND BOWEL: No evidence of bowel obstruction. Scattered colonic diverticula. Left lower quadra nt ostomy without evidence for peristomal hernia. PERITONEUM/RETROPERITONEUM: No evidence of pneumoperitoneum r. There remains a fluid collection in th e upper abdomen just under the diaphragm measuring 7.2 x 2.6 x 7.5 cm. VASCULATURE: No evidence of aortic aneurysm. MUSCULOSKELETAL: No acute osseous abnormalities, bilateral hip arthroplasties with streak artifact li miting evaluation the pelvis. LYMPH NODES: No gross evidence for lymphadenopathy. SOFT TISSUE/ABDOMINAL WALL: Postsurgical changes with skin ryan along the anterior abdominal wall. Diffuse anasarca of the soft tissues. IMPRESSION: 1. Persistent fluid collection just below the right diaphragm 7.2 x 2.6 x 7.5 cm. 2. Diffuse anasarca throughout the abdomen. 3. Colonic diverticulosis. 4. Small bilateral pleural effusions with associated atelectasis. 5. Bilateral hip arthroplasties appear intact. [facility], , 04/30/2024 11:36 AM
[2024-04-30] MEDS: MORPHINE SULFATE 4 MG/ML SYRINGE IVP STA (12:13)
[2024-04-30] MEDS ORDERED: NALOXONE 0.4 MG/ML 1 ML VIAL IV PRN (12:19)
[2024-04-30] MEDS: MORPHINE SULFATE 4 MG/ML SYRINGE IV PRN (17:43)
--- NOTE | 2024-04-30 20:06 | P.HPIM ---
History of Present Illness H&P Date: 04/30/24 Chief Complaint: Dislodged hepatic drain 68-year-old female with past medical history of metastatic rectal cancer, recent perforated diverticula with colostomy who presents to the emergency department reporting that her hepatic drain had been removed. Patient was discharged yesterday from our facility to [facility]. This morning they noted that the patient's drain fell out. It was placed on April 22 for an intra-abdominal abscess. Patient was discharged yesterday on antibiotics. She admits to nausea last night. Does have some generalized abdominal pain but states it is no worse than what it was previously. She denies any fevers. No other alleviating, precipitating or modifying factors Blood work reveals WBC of 10.3, hemoglobin of 10.9 and platelet count of 270, sodium 132, potassium 3.6, BUNs/creatinine of 23/0.56 and blood glucose of 114 -Patient has been admitted for reevaluation by IR for drain placement Review of Systems REVIEW OF SYSTEMS: CONSTITUTIONAL: No fever, no malaise, no fatigue. HEENT: No recent visual problems or hearing problems. Denied any sore throat. CARDIOVASCULAR: No chest pain, orthopnea, PND, no palpitations, no syncope. PULMONARY: No shortness of breath, no cough, no hemoptysis. GASTROINTESTINAL: No diarrhea, no nausea, no vomiting, no abdominal pain. NEUROLOGICAL: No headaches, no weakness, no numbness. HEMATOLOGICAL: Denies any bleeding or petechiae. GENITOURINARY: Denies any burning micturition, frequency, or urgency. MUSCULOSKELETAL/RHEUMATOLOGICAL: Denies any joint pain, swelling, or any muscle pain. ENDOCRINE: Denies any polyuria or polydipsia. The rest of the 14-point review of systems is negative. Past Medical History Past Medical History: Cancer, Hypertension, Osteoarthritis (OA), Thyroid Disorder Additional Past Medical History / Comment(s): only took BP med when broke hip & took for short time only, hx. palpitations. Hemorrhoids. Pt. stated she quit smoing in october 2020. colon cancer, kidney stones, History of Any Multi-Drug Resistant Organisms: None Reported Past Surgical History: Bowel Resection, Hysterectomy, Joint Replacement Additional Past Surgical History / Comment(s): hermann hip replacements, to rt hip orif, colonoscopy Past Anesthesia/Blood Transfusion Reactions: Postoperative Nausea & Vomiting (PONV) Additional Past Anesthesia/Blood Transfusion Reaction / Comment(s): severe ponv, after colonscopy bp shot up with severe vomitting. no blood tx hx Past Psychological History: Anxiety Smoking Status: Former smoker Past Alcohol Use History: None Reported Additional Past Alcohol Use History / Comment(s): quit smoking October 2020, 1ppd. Past Drug Use History: None Reported Additional Drug Use History / Comment(s): gummies at bedtime.. - Past Family History Father Family Medical History: Congestive Heart Failure (CHF), Dementia, Osteoarthritis (OA) Mother Additional Family Medical History / Comment(s): Breast CA, skin CA Brother(s) Family Medical History: Cancer Additional Family Medical History / Comment(s): bone marrow cancer Medications and Allergies Home Medications Medication Instructions Recorded Confirmed Type Acetaminophen [Tylenol Arthritis] 650 mg PO Q4H PRN 03/18/24 04/30/24 History cefuroxime axetiL [Ceftin] 500 mg PO BID #20 tab 04/28/24 04/30/24 Rx metroNIDAZOLE [Flagyl] 500 mg PO TID #30 tab 04/28/24 04/30/24 Rx ALPRAZolam [Xanax] 0.25 mg PO BID PRN 3 Days #6 tab 04/29/24 04/30/24 Rx Amiodarone [Cordarone] 200 mg PO BID #0 tab 04/29/24 04/30/24 Rx Apixaban [Eliquis] 5 mg PO BID 30 Days #60 tab 04/29/24 04/30/24 Rx Losartan [Cozaar] 25 mg PO DAILY tab 04/29/24 04/30/24 Rx Metoprolol Tartrate [Lopressor] 50 mg PO BID tab 04/29/24 04/30/24 Rx Sennosides [Senokot] 8.6 mg PO DAILY tab 04/29/24 04/30/24 Rx HYDROcodone/APAP 10-325MG [[place] 1 tab PO Q4HR PRN 04/30/24 04/30/24 History 10-325] Allergies Allergy/AdvReac Type Severity Reaction Status Date / Time Penicillins Allergy Rash/Hives Verified 04/30/24 12:47 Physical Exam Vitals: Vital Signs Temp Pulse Pulse Resp BP BP Pulse Ox 04/30/24 14:08 97.4 F L 80 16 143/81 96 04/30/24 12:16 82 17 123/84 94 L 04/30/24 08:34 97.6 F 80 18 138/86 95 Intake and Output 04/30/24 04/30/24 04/30/24 06:59 14:59 22:59 Intake Total 762 Output Total 325 Balance 437 Intake: Oral 762 Output: Urine 225 Stool 100 Other: Weight 56.699 kg General appearance: alert, in no apparent distress Head exam: Present: atraumatic, normocephalic, normal inspection Eye exam: Present: normal appearance, PERRL, EOMI. Absent: scleral icterus, conjunctival injection, periorbital swelling ENT exam: Present: normal exam, mucous membranes moist Neck exam: Present: normal inspection. Absent: tenderness, meningismus, lymphadenopathy Respiratory exam: Present: normal lung sounds bilaterally. Absent: respiratory distress, wheezes, rales, rhonchi, stridor Cardiovascular Exam: Present: regular rate, normal rhythm, normal heart sounds. Absent: systolic murmur, diastolic murmur, rubs, gallop, clicks GI/Abdominal exam: Present: soft, tenderness (generalized), normal bowel sounds, other (Midline incision with dressing that has some dried serosanguineous fluid. Colostomy in left lower quadrant. Padding for IR drain is in place however drain is removed from patient). Absent: distended, guarding, rebound, rigid Extremities exam: Present: normal inspection, full ROM, normal capillary refill. Absent: tenderness, pedal edema, joint swelling, calf tenderness Back exam: Present: normal inspection Neurological exam: Present: alert, oriented X3, CN II-XII intact Psychiatric exam: Present: normal affect, normal mood Skin exam: Present: warm, dry, intact, normal color. Absent: rash Results CBC & Chem 7: 04/30/24 08:56 04/30/24 08:56 Labs: Abnormal Lab Results - Last 24 Hours (Table) 04/30/24 04/30/24 Range/Units 08:56 08:56 RBC 3.68 L (3.80-5.40) m/uL Hgb 10.9 L (11.4-16.0) gm/dL RDW 15.6 H (11.5-15.5) % Neutrophils # 8.5 H (1.3-7.7) k/uL Sodium 132 L (137-145) mmol/L BUN 23 H (7-17) mg/dL Glucose 114 H (74-99) mg/dL Calcium 8.3 L (8.4-10.2) mg/dL AST 37 H (14-36) U/L Alkaline Phosphatase 206 H (38-126) U/L Total Protein 4.7 L (6.3-8.2) g/dL Albumin 1.9 L (3.5-5.0) g/dL Thrombosis Risk Factor Assmnt - Choose All That Apply Each Risk Factor Represents 2 Points: Age 61-74 years Thrombosis Risk Factor Assessment Total Risk Factor Score: 2 Thrombosis Risk Factor Assessment Level: Low Risk Assessment and Plan Assessment: Left pelvic abscess with smaller perihepatic abscess; status post drain placement by IR; drain is dislodged; patient will be admitted for IR to reevaluate and replace the drain Pneumoperitoneum, status post exploratory laparotomy and sigmoid colon resection with end colostomy Repeat CAT scan on 04/18 showing possible left pelvic abscess 4.1 cm and smaller perihepatic abscess Right upper extremity DVT in right IJ and subclavian vein Sepsis A-fib with RVR Acute hypoxic respiratory failure Acute sigmoid colon perforation Acute diverticulitis Hyponatremia Hypokalemia Lactic acidosis History of rectal cancer Monitor vital signs Monitor CBC Monitor CMP Continue telemetry monitoring status post exploratory laparotomy and sigmoid colon resection with end colostomy Repeat CAT scan on 04/18 showing possible left pelvic abscess 4.1 cm and smaller perihepatic abscess Status post drain placement by IR on 04/22 Continue cefepime, Eraxis, Continue Eliquis 10 mg twice daily twice a day for 7 days followed by 5 mg twice a day Pulmonology following Surgery following ID following Vascular surgery consulted, recommended oral anticoagulation, no need for any surgical intervention
[2024-04-30] MEDS: CEFDINIR 300 MG CAP PO SCH (20:24)
[2024-04-30] MEDS: AMIODARONE 200 MG TAB PO SCH (20:24)
[2024-04-30] MEDS: APIXABAN 5 MG TAB PO SCH (20:24)
[2024-04-30] MEDS: METOPROLOL TARTRATE 50 MG TAB PO SCH (20:24)
[2024-04-30] MEDS: metroNIDAZOLE 500 MG TAB PO SCH (22:29)
[2024-05-01] MEDS: methylPREDNISolone SOD SUCCI 40 MG/ML 1 ML VIAL IV STA (01:21)
[2024-05-01 04:09] LABS: Influenza A Not Detected (Not Detectd); Influenza B Not Detected (Not Detectd); RSV Not Detected (Not Detectd)
[2024-05-01] MEDS: HYDROcodone/APAP 10-325MG 1 EACH TAB PO PRN (05:24)
[2024-05-01] MEDS ORDERED: IPRATROPIUM-ALBUTEROL 3 ML NEB INHALATION SCH (08:00)
[2024-05-01] MEDS: LOSARTAN 25 MG TAB PO SCH (08:41)
[2024-05-01] MEDS: guaiFENesin SYRUP 100MG/5ML 200 MG/10 ML CUP PO PRN (08:41)
[2024-05-01] MEDS: SENNOSIDES 8.6 MG TAB PO SCH (08:41)
[2024-05-01 11:32] LABS: Basophils # (A) 0.04 X 10*3/uL (0.00-0.10); Basophils % (A) 0.4 %; Eosinophils # (A) 0.04 X 10*3/uL (0.04-0.35); Eosinophils % (A) 0.4 %; HCT 28.9 % (37.2-46.3); HGB 9.2 g/dL (12.0-15.0); Lymphocytes # (A) 1.16 X 10*3/uL (0.90-5.00); Lymphocytes % (A) 11.4 %; MCH 29.6 pg (27.0-32.0); MCHC 31.8 g/dL (32.0-37.0); MCV 92.9 FL (80.0-97.0); Mean Platelet Volume 10.8 FL (9.5-12.2); Monocytes # (A) 0.89 X 10*3/uL (0.20-1.00); Monocytes % (A) 8.8 %; NRBC Per 100 WBC 0 X 10*3/uL (0.00-0.01); Neutrophils # (A) 7.91 X 10*3/uL (1.80-7.70); Neutrophils % (A) 77.7 %; Platelet Count 291 X 10*3/uL (140-440); RBC 3.11 X 10*6/uL (4.10-5.20); RDW 16.2 % (11.5-14.5); WBC 10.17 X 10*3/uL (4.50-10.00)
[2024-05-01] MEDS: ASCORBIC ACID 500 MG TAB PO SCH (12:35)
[2024-05-01] MEDS: CHOLECALCIFEROL 25 MCG (1000 IU) TABLET PO SCH (12:35)
--- NOTE | 2024-05-01 13:54 | XR ---
EXAMINATION TYPE: XR chest 1V portable DATE OF EXAM: 05/01/2024 1:35 PM COMPARISON: Chest radiographs from 04/13/2024. CLINICAL INDICATION: Female, 68 years old with history of Shortness of breath, COVID; [facility] TECHNIQUE: XR chest 1V portable Frontal view of the chest. FINDINGS: Lungs/Pleura: Blunting of the left costophrenic angle. There is no evidence of right pleural effusion , focal consolidation, or pneumothorax. Pulmonary vascularity: Unremarkable. Heart/mediastinum: Cardiomediastinal silhouette is unremarkable. Musculoskeletal: No acute osseous pathology. Other findings: None Lines/Tubes: [id number] projecting over the right hemithorax with distal tip projecting over the superior vena cava. IMPRESSION: Small left pleural effusion. [facility], , 05/01/2024 1:51 PM
[2024-05-01 13:59] LABS: BUN/Creat Ratio 31.67 Ratio (12.00-20.00); Calcium 7.9 mg/dL (8.7-10.3); Carbon Dioxide 25.8 mmol/L (21.6-31.8); Chloride 101 mmol/L (96-109); Glucose 96 mg/dL (70-110); Potassium 3.4 mmol/L (3.5-5.5); Sodium 133 mmol/L (135-145)
--- NOTE | 2024-05-01 16:14 | P.PN ---
Subjective Progress Note Date: 05/01/24 68-year-old female with past medical history of metastatic rectal cancer, recent perforated diverticula with colostomy who presents to the emergency department reporting that her hepatic drain had been removed. Patient was discharged yesterday from our facility to [facility]. This morning they noted that the patient's drain fell out. It was placed on April 22 for an intra-abdominal abscess. Patient was discharged yesterday on antibiotics. She admits to nausea last night. Does have some generalized abdominal pain but states it is no worse than what it was previously. She denies any fevers. No other alleviating, precipitating or modifying factors Blood work reveals WBC of 10.3, hemoglobin of 10.9 and platelet count of 270, sodium 132, potassium 3.6, BUNs/creatinine of 23/0.56 and blood glucose of 114 -Patient has been admitted for reevaluation by IR for drain placement -Labs are reviewed WBC 10.17, hemoglobin 9.2, sodium 133, potassium 3.4, BUNs/creatinine of 19/0.6 -- Patient to be evaluated by IR for drain placement Objective - Vital Signs Vital signs: Vital Signs Temp 97.7 F 05/01/24 07:16 Pulse 70 05/01/24 07:16 Resp 17 05/01/24 07:16 BP 138/74 05/01/24 07:16 Pulse Ox 92 L 05/01/24 07:16 FiO2 Intake & Output 04/30/24 05/01/24 05/01/24 18:59 06:59 18:59 Intake Total 762 Output Total 325 300 Balance 437 -300 Weight 56.699 kg Intake: Oral 762 Output: Urine 225 300 Stool 100 Other: Voiding Method Indwelling Catheter Indwelling Catheter - Exam General appearance: alert, in no apparent distress Head exam: Present: atraumatic, normocephalic, normal inspection Eye exam: Present: normal appearance, PERRL, EOMI. Absent: scleral icterus, conjunctival injection, periorbital swelling ENT exam: Present: normal exam, mucous membranes moist Neck exam: Present: normal inspection. Absent: tenderness, meningismus, lymphadenopathy Respiratory exam: Present: normal lung sounds bilaterally. Absent: respiratory distress, wheezes, rales, rhonchi, stridor Cardiovascular Exam: Present: regular rate, normal rhythm, normal heart sounds. Absent: systolic murmur, diastolic murmur, rubs, gallop, clicks GI/Abdominal exam: Present: soft, tenderness (generalized), normal bowel sounds, other (Midline incision with dressing that has some dried serosanguineous fluid. Colostomy in left lower quadrant. Padding for IR drain is in place however drain is removed from patient). Absent: distended, guarding, rebound, rigid Extremities exam: Present: normal inspection, full ROM, normal capillary refill. Absent: tenderness, pedal edema, joint swelling, calf tenderness Back exam: Present: normal inspection Neurological exam: Present: alert, oriented X3, CN II-XII intact Psychiatric exam: Present: normal affect, normal mood Skin exam: Present: warm, dry, intact, normal color. Absent: rash - Labs CBC & Chem 7: 05/01/24 03:08 05/01/24 03:08 Labs: Abnormal Lab Results - Last 24 Hours (Table) 05/01/24 Range/Units 01:14 SARS-CoV-2 (PCR) Detected A (Not Detectd) Assessment and Plan Assessment: Left pelvic abscess with smaller perihepatic abscess; status post drain p lacement by IR; drain is dislodged; patient will be admitted for IR to reevaluate and replace the drain Pneumoperitoneum, status post exploratory laparotomy and sigmoid colon resection with end colostomy Repeat CAT scan on 04/18 showing possible left pelvic abscess 4.1 cm and smaller perihepatic abscess Right upper extremity DVT in right IJ and subclavian vein Sepsis A-fib with RVR Acute hypoxic respiratory failure Acute sigmoid colon perforation Acute diverticulitis Hyponatremia Hypokalemia Lactic acidosis History of rectal cancer Monitor vital signs Monitor CBC Monitor CMP Continue telemetry monitoring status post exploratory laparotomy and sigmoid colon resection with end colostomy Repeat CAT scan on 04/18 showing possible left pelvic abscess 4.1 cm and smaller perihepatic abscess Status post drain placement by IR on 04/22 Continue cefepime, Eraxis, Continue Eliquis 10 mg twice daily twice a day for 7 days followed by 5 mg twice a day Pulmonology following Surgery following ID following Vascular surgery consulted, recommended oral anticoagulation, no need for any surgical intervention
--- NOTE | 2024-05-01 16:53 | P.CON ---
Consult Note - . Consult date: 05/01/24 Assessment/Plan:: 68-year-old female with past medical history of metastatic rectal cancer, recent perforated diverticula with colostomy who presents to the emergency department reporting that her IR drain had been removed. Patient was discharged yesterday from our facility to [facility]. This morning they noted that the patient's drain fell out. It was placed on April 22 for an intra-abdominal abscess. Patient was discharged yesterday on antibiotics. She admits to nausea last night. Does have some generalized abdominal pain but states it is no worse than what it was previously. She denies any fevers. No other alleviating, precipitating or mo difying factors Review of Systems ROS Statement: Those systems with pertinent positive or pertinent negative responses have been documented in the HPI. ROS Other: All systems not noted in ROS Statement are negative. Past Medical History Past Medical History: Cancer, Hypertension, Osteoarthritis (OA), Thyroid Disorder Additional Past Medical History / Comment(s): only took BP med when broke hip & took for short time only, hx. palpitations. Hemorrhoids. Pt. stated she quit smoing in october 2020. colon cancer, kidney stones, History of Any Multi-Drug Resistant Organisms: None Reported Past Surgical History: Hysterectomy, Joint Replacement Additional Past Surgical History / Comment(s): hermann hip replacements, to rt hip orif, colonoscopy Past Anesthesia/Blood Transfusion Reactions: Postoperative Nausea & Vomiting (PONV) Additional Past Anesthesia/Blood Transfusion Reaction / Comment(s): severe ponv, after colonscopy bp shot up with severe vomitting. no blood tx hx Past Psychological History: Anxiety Smoking Status: Former smoker Past Alcohol Use History: None Reported Past Drug Use History: None Reported - Past Family History Father Family Medical History: Congestive Heart Failure (CHF), Dementia, Osteoarthritis (OA) Mother Additional Family Medical History / Comment(s): Breast CA, skin CA Brother(s) Family Medical History: Cancer Additional Family Medical History / Comment(s): bone marrow cancer General Exam Limitations: no limitations General appearance: alert, in no apparent distress Head exam: Present: atraumatic, normocephalic, normal inspection Eye exam: Present: normal appearance, PERRL, EOMI. Absent: scleral icterus, conjunctival injection, periorbital swelling ENT exam: Present: normal exam, mucous membranes moist Neck exam: Present: normal inspection. Absent: tenderness, meningismus, lymphadenopathy Respiratory exam: Present: normal lung sounds bilaterally. Absent: respiratory distress, wheezes, rales, rhonchi, stridor Cardiovascular Exam: Present: regular rate, normal rhythm, normal heart sounds. Absent: systolic murmur, diastolic murmur, rubs, gallop, clicks GI/Abdominal exam: Present: soft, tenderness (generalized), normal bowel sounds, other (Midline incision with dressing that has some dried serosanguineous fluid. Colostomy in left lower quadrant. Padding for IR drain is in place however drain is removed from patient). Absent: distended, guarding, rebound, rigid Extremities exam: Present: normal inspection, full ROM, normal capillary refill. Absent: tenderness, pedal edema, joint swelling, calf tenderness Back exam: Present: normal inspection Neurological exam: Present: alert, oriented X3, CN II-XII intact Psychiatric exam: Present: normal affect, normal mood Skin exam: Present: warm, dry, intact, normal color. Absent: rash 68 year old female with dislodged IR drain. Patient had recent Berto's Procedure with postoperative abscess -IR consulted for new drain placement -NPO/midnight -Rocephin/Flagyl -AM labs [facility] [phone]
--- NOTE | 2024-05-02 08:06 | P.CONS ---
History of Present Illness - Reason for Consult Consult date: 05/01/24 COVID-19 Requesting physician: Zulema Bedolla - Chief Complaint Abdominal pain and drainage catheter fell off x 1 day - History of Present Illness Patient is a 68-year-old female with a past medical history significant for hypertension osteoarthritis, metastatic rectal cancer recent admission to the hospital with perforated diverticulitis status post diverting colostomy and did develop intra-abdominal abscess status post IR drainage culture positive for Clostridium patient has developed a DVT to the right upper extremity has decided not to use another PICC line and the patient was discharged to [facility] on oral Ceftin and Flagyl patient had been sent back to the ER yesterday after the drainage catheter fell off patient denies having any fever or any chills has been complaining of some nausea but no vomiting also abdominal pain mostly dull aching mild to moderate intensity without radiation did have output in her colostomy patient denies having any chest pain or shortness but she did have a cough mild to moderate intensity but not bringing up any sputum on presentation to the hospital patient was afebrile and no fever have been recorded subsequently patient was not tachycardic hypotensive or hypoxic only. Plan mental oxygen patient did have a white count of 10.17 with a left shift creatinine 0.6 patient tested positive for COVID-19 he did have abdominal pelvis CT plus history of fluid collection just below the right diaphram 7.2 X2.6X 7.5 cm diffuse anasarca throughout the abdomen infectious disease was consulted regarding COVID-19 Review of Systems Positive point and negatives has been mentioned in the HPI, complete review of systems was performed and all other systems are negative Past Medical History Past Medical History: Cancer, Hypertension, Osteoarthritis (OA), Thyroid Disorder Additional Past Medical History / Comment(s): only took BP med when broke hip & took for short time only, hx. palpitations. Hemorrhoids. Pt. stated she quit smoing in october 2020. colon cancer, kidney stones, History of Any Multi-Drug Resistant Organisms: None Reported Past Surgical History: Bowel Resection, Hysterectomy, Joint Replacement Additional Past Surgical History / Comment(s): hermann hip replacements, to rt hip orif, colonoscopy Past Anesthesia/Blood Transfusion Reactions: Postoperative Nausea & Vomiting (PONV) Additional Past Anesthesia/Blood Transfusion Reaction / Comm: severe ponv, after colonscopy bp shot up with severe vomitting. no blood tx hx Past Psychological History: Anxiety Smoking Status: Former smoker Past Alcohol Use History: None Reported Additional Past Alcohol Use History / Comment(s): quit smoking October 2020, 1ppd. Past Drug Use History: None Reported Additional Drug Use History / Comment(s): gummies at bedtime.. - Past Family History Father Family Medical History: Congestive Heart Failure (CHF), Dementia, Osteoarthritis (OA) Mother Additional Family Medical History / Comment(s): Breast CA, skin CA Brother(s) Family Medical History: Cancer Additional Family Medical History / Comment(s): bone marrow cancer Medications and Allergies Home Medications Medication Instructions Recorded Confirmed Type Acetaminophen [Tylenol Arthritis] 650 mg PO Q4H PRN 03/18/24 04/30/24 History cefuroxime axetiL [Ceftin] 500 mg PO BID #20 tab 04/28/24 04/30/24 Rx metroNIDAZOLE [Flagyl] 500 mg PO TID #30 tab 04/28/24 04/30/24 Rx ALPRAZolam [Xanax] 0.25 mg PO BID PRN 3 Days #6 tab 04/29/24 04/30/24 Rx Amiodarone [Cordarone] 200 mg PO BID #0 tab 04/29/24 04/30/24 Rx Apixaban [Eliquis] 5 mg PO BID 30 Days #60 tab 04/29/24 04/30/24 Rx Losartan [Cozaar] 25 mg PO DAILY tab 04/29/24 04/30/24 Rx Metoprolol Tartrate [Lopressor] 50 mg PO BID tab 04/29/24 04/30/24 Rx Sennosides [Senokot] 8.6 mg PO DAILY tab 04/29/24 04/30/24 Rx HYDROcodone/APAP 10-325MG [[place] 1 tab PO Q4HR PRN 04/30/24 04/30/24 History 10-325] Allergies Allergy/AdvReac Type Severity Reaction Status Date / Time Penicillins Allergy Rash/Hives Verified 04/30/24 12:47 Physical Exam Vitals: Vital Signs Temp Pulse Resp BP Pulse Ox 05/01/24 07:16 97.7 F 70 17 138/74 92 L 05/01/24 06:33 97.4 F L 75 18 139/74 94 L 05/01/24 01:53 98.1 F 69 16 130/84 93 L 04/30/24 20:23 98.5 F 87 154/78 93 L 04/30/24 14:08 97.4 F L 80 16 143/81 96 Intake and Output 04/30/24 05/01/24 05/01/24 22:59 06:59 14:59 Intake Total 762 Output Total 325 300 Balance 437 -300 Intake: Oral 762 Output: Urine 225 300 Stool 100 Other: Voiding Method Indwelling Catheter Indwelling Catheter GENERAL DESCRIPTION: Elderly female lying in bed, no distress. No tachypnea or accessory muscle of respiration use. HEENT: Shows Pallor , no scleral icterus. Oral mucous membrane is dry. No pharyngeal erythema or thrush NECK: Trachea central, no thyromegaly. LUNGS: Unlabored breathing. Coarse breath sound bilaterally HEART: S1, S2, regular rate and rhythm. No loud murmur ABDOMEN: Soft, mild tenderness EXTREMITIES: No edema of feet. SKIN: No rash, no masses palpable. NEUROLOGICAL: The patient is awake, alert, oriented x3, mood and affect normal. Results CBC & Chem 7: 05/01/24 03:08 05/01/24 03:08 Labs: Abnormal Lab Results - Last 24 Hours (Table) 05/01/24 05/01/24 Range/Units 01:14 03:08 WBC 10.17 H (4.50-10.00) X 10*3/uL RBC 3.11 L (4.10-5.20) X 10*6/uL Hgb 9.2 L (12.0-15.0) g/dL Hct 28.9 L (37.2-46.3) % MCHC 31.8 L (32.0-37.0) g/dL RDW 16.2 H (11.5-14.5) % Immature Gran # 0.13 H (0.00-0.04) X 10*3/uL Neutrophils # 7.91 H (1.80-7.70) X 10*3/uL SARS-CoV-2 (PCR) Detected A (Not Detectd) Assessment and Plan (1) Penicillin allergy Current Visit: Yes Status: Acute Code(s): Z88.0 - ALLERGY STATUS TO PENICILLIN SNOMED Code(s): 16545923 (2) COVID-19 Current Visit: Yes Status: Acute Code(s): U07.1 - COVID-19 SNOMED Code(s): 713873756 (3) Intra-abdominal abscess Current Visit: Yes Status: Acute Code(s): K65.1 - PERITONEAL ABSCESS SNOMED Code(s): 18381060 Plan: 1patient tested positive for COVID-19 patient did have a cough currently not running any fever and not hypoxic or need for supplemental oxygen treatment will be mostly supportive we will check a chest x-ray to make sure evidence of any COVID-19 pneumonia 2-patient did have a history of perforated diverticulitis intra-abdominal abscess patient drainage catheter did fell off CT with persistent abdominal abscess IR has been consulted for drainage of the abscess fluid should be sent for the culture 3-we will discontinue cefdinir start the patient on Rocephin 2 g daily and continue with oral Flagyl on the basis of previous culture We will follow on clinical condition and cultures to further adjust medication if needed Thank you for this consultation we will follow the patient along with you Dictation was produced using [employer] dictation software. please excuse any grammatical, word or spelling errors. Time with Patient: Greater than 30
[2024-05-02 09:45] LABS: INR 2.1 (<1.2); Prothrombin Time 21.5 sec (10.0-12.5)
--- NOTE | 2024-05-02 12:20 | P.PN ---
Subjective Progress Note Date: 05/02/24 Principal diagnosis: Reason for follow-up is COVID-19 intra-abdominal abscess Patient is a 68-year-old female with a past medical history significant for hypertension osteoarthritis, metastatic rectal cancer recent admission to the hospital with perforated diverticulitis status post diverting colostomy and did develop intra-abdominal abscess status post IR drainage c ulture positive for Clostridium patient has developed a DVT to the right upper extremity has decided not to use another PICC line and the patient was discharged to intermediate on oral Ceftin and Flagyl patient had been sent back to the ER after the drainage catheter fell off, with repeat CT abdominal pelvis did shows fluid collection just below the right diaphram 7.2 X2.6X 7.5 cm also tested positive for COVID prompted this consultation. On today's evaluation that is 05/02/2023, patient has been afebrile, patient is breathing comfortably and is currently on room air, patient denies having any chest pain still complaining of cough but not bringing up any sputum abdominal pain is controlled nausea but no vomiting. The patient did have INR of 2.1 CBC is pending from today Objective - Vital Signs Vital signs: Vital Signs Temp 98.2 F 05/02/24 07:44 Pulse 72 05/02/24 07:44 Resp 16 05/02/24 07:44 BP 146/71 05/02/24 07:44 Pulse Ox 90 L 05/02/24 07:44 FiO2 Intake & Output 05/01/24 05/02/24 05/02/24 18:59 06:59 18:59 Output Total 475 250 Balance -475 -250 Output: Urine 475 250 Other: Voiding Method Indwelling Catheter Indwelling Catheter # Voids 1 - Exam GENERAL DESCRIPTION: An elderly female lying in bed in no distress RESPIRATORY SYSTEM: Unlabored breathing , coarse breath sounds HEART: S1 S2 regular rate and rhythm , ABDOMEN: Soft , no tenderness EXTREMITIES: No edema feet - Labs CBC & Chem 7: 05/01/24 03:08 05/01/24 03:08 Labs: Abnormal Lab Results - Last 24 Hours (Table) 05/01/24 05/02/24 Range/Units 03:08 09:27 PT 21.5 H (10.0-12.5) sec INR 2.1 H (<1.2) Sodium 133 L (135-145) mmol/L Potassium 3.4 L (3.5-5.5) mmol/L BUN/Creatinine Ratio 31.67 H (12.00-20.00) Ratio Calcium 7.9 L (8.7-10.3) mg/dL Assessment and Plan (1) Penicillin allergy Current Visit: Yes Status: Acute Code(s): Z88.0 - ALLERGY STATUS TO PENICILLIN SNOMED Code(s): 16147480 (2) COVID-19 Current Visit: Yes Status: Acute Code(s): U07.1 - COVID-19 SNOMED Code(s): 298074722 (3) Intra-abdominal abscess Current Visit: Yes Status: Acute Code(s): K65.1 - PERITONEAL ABSCESS SNOMED Code(s): 53248643 Plan: 1patient tested positive for COVID-19 patient did have a cough currently not running any fever and not hypoxic or need for supplemental oxygen treatment will be mostly supportive, patient did have a chest x-ray did not show any features suggestive COVID-19 pneumonia 2-patient did have a history of perforated diverticulitis intra-abdominal abscess patient drainage catheter did fell off CT with persistent abdominal abscess IR has been consulted for drainage of the abscess were recommending hold ing of the Eliquis before proceeding with the drainage nursing staff to confirm with the medicine if it is safe to hold on the Eliquis 3-patient to continue with Rocephin 2 g daily along with oral Flagyl antibiotic clinical course closely Dictation was produced using [employer] dictation software. please excuse any grammatical, word or spelling errors. Time with Patient: Less than 30
--- NOTE | 2024-05-02 14:22 | P.PN ---
Subjective Progress Note Date: 05/02/24 SURGICAL PROGRESS NOTE CHIEF COMPLAINT: Recent perforated diverticulitis with abscess and colostomy placement HISTORY OF PRESENT ILLNESS: Patient's drain for the intra ivan abscess fell out at the F. Her repeat CT scan abdomen pelvis was still showing evidence of fluid collection. IR service was consulted for replacement of the drain. She did receive Eliquis last night so IR cannot place the drain today. Per nursing staff IR service is planning to place drain tomorrow. Patient is COVID-posi tive. Does have a cough. Patient is not complaining of any abdominal pain. She did have nausea earlier that has improved. Afebrile. WBC 10.17 INR 2.1 PHYSICAL EXAM: VITAL SIGNS: Reviewed. GENERAL: Well-developed in no acute distress. HEENT: No sclera icterus. Extraocular movements grossly intact. Moist buccal mucosa. Head is atraumatic, normocephalic. ABDOMEN: Soft. Nondistended. Nontender. Incision site with minimal purulent drainage noted on dressing. Ostomy no output at this time. Stoma is pink. NEUROLOGIC: Alert and oriented. Cranial nerves II through XII grossly intact. ASSESSMENT: 1. Dislodged IR drain 2. Perforated diverticulitis with recent Berto procedure with postoperative intra-abdominal abscess PLAN: -IR consulted for new drain placement -Continue antibiotics -Patient can have regular diet today -Discussed with nursing staff to hold Eliquis for IR procedure Physician Manager Reporting note has been reviewed by physician. Signing provider agrees with the documented findings, assessment, and plan of care. Attestation Patient seen and examined at bedside. Status post recent Christensen's procedure. She returned from [facility] secondary to IR drain following out. Repeat CT shows fluid collection. IR consulted for new drain placement. Holding Eliquis for IR procedure. Patient can have regular diet. Lexie Harden DO Objective - Vital Signs Vital signs: Vital Signs Temp 98.2 F 05/02/24 07:44 Pulse 72 05/02/24 07:44 Resp 16 05/02/24 07:44 BP 146/71 05/02/24 07:44 Pulse Ox 90 L 05/02/24 07:44 FiO2 Intake & Output 05/01/24 05/02/24 05/02/24 18:59 06:59 18:59 Output Total 475 250 Balance -475 -250 Output: Urine 475 250 Other: Voiding Method Indwelling Catheter Indwelling Catheter # Voids 1 - Labs CBC & Chem 7: 05/01/24 03:08 05/01/24 03:08 Labs: Abnormal Lab Results - Last 24 Hours (Table) 05/02/24 Range/Units 09:27 PT 21.5 H (10.0-12.5) sec INR 2.1 H (<1.2)
--- NOTE | 2024-05-02 17:25 | XR ---
EXAMINATION TYPE: XR chest 1V portable DATE OF EXAM: 05/02/2024 5:12 PM COMPARISON: Chest radiographs from 05/01/2024 CLINICAL INDICATION: Female, 68 years old with history of cough, sob; [facility] TECHNIQUE: XR chest 1V portable Frontal view of the chest. FINDINGS: Lungs/Pleura: Right lower middle medial lobe airspace opacities with blunting of the left costophreni c angle. There is no evidence of pleural effusion, focal consolidation, or pneumothorax. Pulmonary vascularity: Unremarkable. Heart/mediastinum: Cardiomediastinal silhouette is enlarged. Musculoskeletal: No acute osseous pathology. Other findings: None Lines/Tubes: [id number] projecting over the right hemithorax with distal tip projecting over the superior vena cava. IMPRESSION: Similar right middle lobe airspace opacities and possible small left pleural effusion. [facility], , 05/02/2024 5:23 PM
[2024-05-02] MEDS: PHYTONADIONE 5 MG in SODIUM CHLORIDE 0.9% 50 ML IVPB STA (17:41)
--- NOTE | 2024-05-02 22:47 | PN ---
PROGRESS NOTE DATE OF SERVICE: 05/02/2024 SUBJECTIVE: This is a 68-year-old woman, who has a past medical history of metastatic renal cell carcinoma, was recently admitted with diverticulitis and intraabdominal abscess. The drainage tube was placed. The patient was sent home on p.o. antibiotics. Drainage tube fell off and the patient came back and the patient found to be positive for COVID-19 without any evidence of COVID-19 pneumonia. The patient is being closely monitored. Multiple consultants are following the patient closely. PAST MEDICAL HISTORY: Reviewed. REVIEW OF SYSTEMS: Fourteen-point review is negative except as mentioned earlier. CURRENT MEDICATIONS: Reviewed. PHYSICAL EXAMINATION: VITAL SIGNS: Pulse is 60, blood pressure 148/70, respirations 16. HEENT: Conjunctivae normal. NECK: No JVD. CARDIOVASCULAR: S1, S2. RESPIRATIONS: Breath sounds diminished at the bases. A few scattered rhonchi. ABDOMEN: Soft. NERVOUS SYSTEM: Nonfocal. LABORATORY DATA: WBC 10.17. Otherwise, INR is 2.1. COVID-19 is positive. ASSESSMENT: 1. Left pelvic abscess with small perihepatic abscess, status post drainage placement, which is dislodged. 2. Pneumoperitoneum. 3. Acute COVID-19. 4. Atrial fibrillation/rapid ventricular rate. 5. History of diverticulitis and perforation recently. 6. Hyponatremia. 7. Hypokalemia. RECOMMENDATIONS: Recommend to continue current management and continue symptomatic treatment. Otherwise, at this time, I would recommend continue with broad-spectrum IV antibiotics. Interventional Surgery consultation has been sought. Guarded prognosis. Further recommendations to follow. MMODL / IJN: [id number] /
[2024-05-03 06:01] LABS: INR 1.2 (<1.2); Prothrombin Time 13.1 sec (10.0-12.5)
--- NOTE | 2024-05-03 07:50 | US ---
EXAMINATION TYPE: US venous doppler duplex LE BI DATE OF EXAM: 05/03/2024 7:43 AM COMPARISON: NONE CLINICAL INDICATION: Female, 68 years old with history of elevated D-dimer and swelling; swelling, Pa in TECHNIQUE: The lower extremity deep venous system is examined utilizing real time linear array sonog nathan with graded compression, color doppler sonography, and spectral doppler. SIDE PERFORMED: Bilateral FINDINGS: VESSELS IMAGED: Common Femoral Vein Deep Femoral Vein Greater Saphenous Vein * Femoral Vein Popliteal Vein Small Saphenous Vein * Proximal Calf Veins (* superficial vessels) Limited due to extreme edema bilaterally and pt unable to move Right Leg: No evidence for DVT, Color Doppler imaging shows patency of the vessels. Spectral wavefor ms are within normal limits. Left Leg: No evidence for DVT, Color Doppler imaging shows patency of the vessels. Spectral waveform s are within normal limits. IMPRESSION: No ultrasound evidence for deep venous thrombosis. [facility], , 05/03/2024 7:48 AM
[2024-05-03 08:50] LABS: ALT 7 U/L (8-44); AST 31 U/L (13-35); Albumin 1.7 g/dL (3.8-4.9); Albumin/Globulin Ratio 0.68 Ratio (1.60-3.17); Alkaline Phosphatase 205 U/L (41-126); Blood Urea Nitrogen 14.8 mg/dL (9.0-27.0); Calcium 7.9 mg/dL (8.7-10.3); Carbon Dioxide 25.6 mmol/L (21.6-31.8); Chloride 102 mmol/L (96-109); Globulin 2.5 g/dL (1.6-3.3); Glucose 88 mg/dL (70-110); Magnesium 1.4 mg/dL (1.5-2.4); Potassium 3.7 mmol/L (3.5-5.5); Sodium 135 mmol/L (135-145); Total Bilirubin 0.3 mg/dL (0.3-1.2); Total Protein 4.2 g/dL (6.2-8.2)
[2024-05-03 09:06] LABS: Basophils # (A) 0.05 X 10*3/uL (0.00-0.10); Basophils % (A) 0.5 %; Eosinophils # (A) 0.03 X 10*3/uL (0.04-0.35); Eosinophils % (A) 0.3 %; HCT 27.5 % (37.2-46.3); HGB 8.8 g/dL (12.0-15.0); Lymphocytes # (A) 1.09 X 10*3/uL (0.90-5.00); MCH 29.6 pg (27.0-32.0); MCV 92.6 FL (80.0-97.0); Mean Platelet Volume 10.3 FL (9.5-12.2); Monocytes # (A) 0.96 X 10*3/uL (0.20-1.00); Monocytes % (A) 9.7 %; NRBC Per 100 WBC 0 X 10*3/uL (0.00-0.01); Neutrophils # (A) 7.54 X 10*3/uL (1.80-7.70); Neutrophils % (A) 76.5 %; Platelet Count 349 X 10*3/uL (140-440); RBC 2.97 X 10*6/uL (4.10-5.20); RDW 16.1 % (11.5-14.5); WBC 9.87 X 10*3/uL (4.50-10.00)
--- NOTE | 2024-05-03 10:07 | CT ---
EXAMINATION TYPE: CT chest angio for PE DATE OF EXAM: 05/03/2024 COMPARISON: 02/08/2024, 04/30/2024 CLINICAL INDICATION: Female, 68 years old with history of elev d dimer, ?PE; PHH, Elevated d dimer, S OB or PAIN TECHNIQUE: Ct angiogram of the chest performed with with IV Contrast, patient injected with 100 mL of Isovue 370 . MIP images are created and reviewed. CT DLP: 272.5 mGycm Automated exposure control for dose reduction was used. FINDINGS: LUNGS: There are moderate bilateral pleural effusions. Consolidation at the lung bases favored to rep resent compressive atelectasis. Additional groundglass and subsegmental areas of consolidation are no nspecific possibly related atelectasis although sequela of infection or inflammatory etiology not exc luded. Somewhat nodular appearing indeterminate density along the medial margin left lung apex image 21 series 401. MEDIASTINUM: Artifact limits assessment of the pulmonary vasculature. Centrally there is no evidence of pulmonary embolism. Distal branches are limited. Aorta measures 3.7 cm. There is coronary artery c alcifications and borderline cardiomegaly. OTHER: Thyroid is enlarged and there is multinodular thyroid changes. There is a perihepatic fluid c ollection containing air suspicious for a perihepatic abscess measuring 8.7 cm previously measured 7. 3 cm in greatest dimension. A trace of free intraperitoneal air not excluded. Degenerative changes spine. There is a destructive lesion on the upper thoracic vertebral segment est imated at T4. Somewhat heterogeneous mineralization of the lower cervical and remaining upper thoraci c segments also suspicious for osseous metastases. Generalized anasarca. Mediport catheter incidental ly noted. The patient's nurse was called at Yaa 9:58 AM 05/03/2024. IMPRESSION: 1. Limited exam due to artifact demonstrates no central pulmonary embolism. Distal branches are limit ed. 2. There is a 8.7 cm perihepatic fluid collection with air bubble. Perihepatic abscess suspected. A trace of free peritoneal air not excluded. Appears increased in size from the exam of 04/30/2024. 3. Osseous metastasis or destructive change in the upper thoracic spine favored over osteomyelitis co rrelate for history of malignancy. 4. Moderate bilateral pleural effusion with areas of consolidation for which atelectasis favored over pneumonia correlate clinically. Correlate for fluid overload. 5. A somewhat nodular density along the medial margin of the left upper lobe. Metastatic lesion not e xcluded. Follow-up recommendations for incidental pulmonary nodules are per [employer] or [employer]. [facility], , 05/03/2024 10:05 AM
[2024-05-03] MEDS: HYDROmorphone 0.5 MG/0.5 ML SYRINGE IVP STA (13:20)
--- NOTE | 2024-05-03 13:47 | US ---
EXAMINATION TYPE: US peritoneal/retroperi drain DATE OF EXAM: 05/03/2024 12:59 PM COMPARISON: CT 04/30/2024 CLINICAL INDICATION: Female, 68 years old with history of Rt Abdomen - drainage tube for perihepatic intraperitoneal abscess/fluid collection. Referred for new drain placement. PROCEDURE: Ultrasound along the right upper quadrant in the perihepatic region shows the thick fluid scalloping the underlying liver contour. Access was anterior approach from between the inferior most ribs. Ultra sound was utilized to determine the precise skin entry site. The patient was brought into the ultrasound suite. The procedure, along with risks and complications were discussed with the patient. Patient agreed to proceed with the procedure. A consent was signed and placed in patient 's chart. Maximum sterile technique was utilized. The site was marked. Timeout was performed by radiology nurs ing. The right upper quadrant was sterilely prepped and draped in the usual fashion. 10 mL of 1% Lidocaine was utilized to anesthetize the superficial and deep soft tissues. Following that, a skin janet was and through that skin janet, a 6.5 [place] catheter system was advanced utilizing trocar technique into the fluid collection. After fluid return was confirmed, the pigtail loop was formed and secured as the stylette/introducer was removed. Initial aspiration of 20 mL of th ick purulent fluid which was labeled for laboratory analysis. The catheter was subsequently connected to a vacuum assisted drainage bag and secured with a StayFix device. The catheter shows 20 cm at the skin entry site. Patient tolerated the procedure well and was sent back to the inpatient room in satisfactory conditio n. IMPRESSION: Satisfactory placement of a 6.5 [place] pigtail drainage catheter into the patient's right upper quadr ant perihepatic fluid collection via ultrasound guidance. Initial 20 mL of purulent fluid was sent fo r laboratory analysis. [facility], , 05/03/2024 1:45 PM
[2024-05-03] MEDS ORDERED: Magnesium Replacement Protocol 1 EACH MISC MISCELLANE PRN (15:24)
[2024-05-03] MEDS: MAGNESIUM SULFATE-D5W PMX 1 GM in DEXTROSE/WATER 1 100ML.BAG IVPB SCH (15:37)
--- NOTE | 2024-05-03 15:38 | P.PN ---
Subjective Progress Note Date: 05/03/24 Principal diagnosis: Reason for follow-up is COVID-19 intra-abdominal abscess Patient is a 68-year-old female with a past medical history significant for hypertension osteoarthritis, metastatic rectal cancer recent admission to the hospital with perforated diverticulitis status post diverting colostomy and did develop intra-abdominal abscess status post IR drainage c ulture positive for Clostridium patient has developed a DVT to the right upper extremity has decided not to use another PICC line and the patient was discharged to [facility] on oral Ceftin and Flagyl patient had been sent back to the ER after the drainage catheter fell off, with repeat CT abdominal pelvis did shows fluid collection just below the right diaphram 7.2 X2.6X 7.5 cm also tested positive for COVID prompted this consultation. On today's evaluation that is 05/03/2024, Patient is afebrile this morning patient denies having any chest pain shortness of breath continues to have a cough but not bringing up any sputum, the patient is currently on room air, patient abdominal pain is currently controlled no nausea no vomiting. Patient white count is 9.87, creatinine 0.4 Objective - Vital Signs Vital signs: Vital Signs Temp 97.7 F 05/03/24 13:44 Pulse 60 05/03/24 13:44 Resp 16 05/03/24 13:44 BP 157/73 05/03/24 13:44 Pulse Ox 91 L 05/03/24 13:44 FiO2 Intake & Output 05/02/24 05/03/24 05/03/24 18:59 06:59 18:59 Output Total 400 175 Balance -400 -175 Output: Urine 400 175 Other: Voiding Method Indwelling Catheter Indwelling Catheter Indwelling Catheter - Exam GENERAL DESCRIPTION: An elderly female lying in bed in no distress RESPIRATORY SYSTEM: Unlabored breathing , coarse breath sounds HEART: S1 S2 regular rate and rhythm , ABDOMEN: Soft , no tenderness EXTREMITIES: No edema feet - Labs CBC & Chem 7: 05/03/24 04:27 05/03/24 04:27 Labs: Abnormal Lab Results - Last 24 Hours (Table) 05/02/24 05/03/24 05/03/24 Range/Units 17:00 04:27 04:27 RBC 2.97 L (4.10-5.20) X 10*6/uL Hgb 8.8 L (12.0-15.0) g/dL Hct 27.5 L (37.2-46.3) % RDW 16.1 H (11.5-14.5) % Immature Gran # 0.20 H (0.00-0.04) X 10*3/uL Eosinophils # 0.03 L (0.04-0.35) X 10*3/uL PT 13.1 H (10.0-12.5) sec INR 1.2 H (<1.2) D-Dimer 3.30 H (<0.60) mg/L FEU Creatinine (0.6-1.5) mg/dL BUN/Creatinine Ratio (12.00-20.00) Ratio Calcium (8.7-10.3) mg/dL Magnesium (1.5-2.4) mg/dL ALT (8-44) U/L Alkaline Phosphatase (41-126) U/L Total Protein (6.2-8.2) g/dL Albumin (3.8-4.9) g/dL Albumin/Globulin Ratio (1.60-3.17) Ratio // Range/Units 04:27 RBC (4.10-5.20) X 10*6/uL Hgb (12.0-15.0) g/dL Hct (37.2-46.3) % RDW (11.5-14.5) % Immature Gran # (0.00-0.04) X 10*3/uL Eosinophils # (0.04-0.35) X 10*3/uL PT (10.0-12.5) sec INR (<1.2) D-Dimer (<0.60) mg/L FEU Creatinine 0.4 L (0.6-1.5) mg/dL BUN/Creatinine Ratio 37.00 H (12.00-20.00) Ratio Calcium 7.9 L (8.7-10.3) mg/dL Magnesium 1.4 L (1.5-2.4) mg/dL ALT 7 L (8-44) U/L Alkaline Phosphatase 205 H (41-126) U/L Total Protein 4.2 L (6.2-8.2) g/dL Albumin 1.7 L (3.8-4.9) g/dL Albumin/Globulin Ratio 0.68 L (1.60-3.17) Ratio Assessment and Plan (1) Penicillin allergy Current Visit: Yes Status: Acute Code(s): Z88.0 - ALLERGY STATUS TO PENICILLIN SNOMED Code(s): 20725900 (2) COVID-19 Current Visit: Yes Status: Acute Code(s): U07.1 - COVID-19 SNOMED Code(s): 640162201 (3) Intra-abdominal abscess Current Visit: Yes Status: Acute Code(s): K65.1 - PERITONEAL ABSCESS SNOMED Code(s): 13615077 Plan: 1patient tested positive for COVID-19 patient did have a cough currently not running any fever and not hypoxic or need for supplemental oxygen treatment will be mostly supportive, patient did have a chest x-ray did not show any features suggestive COVID-19 pneumonia 2-patient did have a history of perforated diverticulitis intra-abdominal abscess patient drainage catheter did fell off CT with persistent abdominal abscess patient is status post IR drainage of this abscess and drainage catheter placement we will try to locate any cultures which may be followed discussed with [facility] for admitting team 3-patient to continue with Rocephin 2 g daily along with oral Flagyl antibiotic clinical course closely Dictation was produced using [employer] dictation software. please excuse any g rammatical, word or spelling errors. Time with Patient: Less than 30
--- NOTE | 2024-05-03 16:22 | P.PN ---
Subjective Progress Note Date: 05/03/24 SURGICAL PROGRESS NOTE CHIEF COMPLAINT: Recent perforated diverticulitis with abscess and colostomy placement HISTORY OF PRESENT ILLNESS: Patient is status post new drain placement by IR service. Patient has no new complaints. Afebrile. WBC is down from 10-9.87 Hgb 9.2 down to 8.8 PHYSICAL EXAM: VITAL SIGNS: Reviewed. GENERAL: Well-developed in no acute distress. ABDOMEN: Soft. Nondistended. Nontender. Drain in place with serosanguineous drainage NEUROLOGIC: Alert and oriented. Cranial nerves II through XII grossly intact. ASSESSMENT: 1. Dislodged IR drain 2. Perforated diverticulitis with recent Berto procedure with postoperative intra-abdominal abscess PLAN: -Status post new IR drain placement -Continue antibiotics per infectious disease -Patient can be discharged from surgical standpoint Physician Supervisor [employer] note has been reviewed by physician. Signing provider agrees with the documented findings, assessment, and plan of care. Objective - Vital Signs Vital signs: Vital Signs Temp 97.7 F 05/03/24 13:44 Pulse 60 05/03/24 13:44 Resp 16 05/03/24 13:44 BP 157/73 05/03/24 13:44 Pulse Ox 91 L 05/03/24 13:44 FiO2 Intake & Output 05/02/24 05/03/24 05/03/24 18:59 06:59 18:59 Output Total 400 175 Balance -400 -175 Output: Urine 400 175 Other: Voiding Method Indwelling Catheter Indwelling Catheter Indwelling Catheter - Labs CBC & Chem 7: 05/03/24 04:27 05/03/24 04:27 Labs: Abnormal Lab Results - Last 24 Hours (Table) 05/02/24 05/03/24 05/03/24 Range/Units 17:00 04:27 04:27 RBC 2.97 L (4.10-5.20) X 10*6/uL Hgb 8.8 L (12.0-15.0) g/dL Hct 27.5 L (37.2-46.3) % RDW 16.1 H (11.5-14.5) % Immature Gran # 0.20 H (0.00-0.04) X 10*3/uL Eosinophils # 0.03 L (0.04-0.35) X 10*3/uL PT 13.1 H (10.0-12.5) sec INR 1.2 H (<1.2) D-Dimer 3.30 H (<0.60) mg/L FEU Creatinine (0.6-1.5) mg/dL BUN/Creatinine Ratio (12.00-20.00) Ratio Calcium (8.7-10.3) mg/dL Magnesium (1.5-2.4) mg/dL ALT (8-44) U/L Alkaline Phosphatase (41-126) U/L Total Protein (6.2-8.2) g/dL Albumin (3.8-4.9) g/dL Albumin/Globulin Ratio (1.60-3.17) Ratio // Range/Units 04:27 RBC (4.10-5.20) X 10*6/uL Hgb (12.0-15.0) g/dL Hct (37.2-46.3) % RDW (11.5-14.5) % Immature Gran # (0.00-0.04) X 10*3/uL Eosinophils # (0.04-0.35) X 10*3/uL PT (10.0-12.5) sec INR (<1.2) D-Dimer (<0.60) mg/L FEU Creatinine 0.4 L (0.6-1.5) mg/dL BUN/Creatinine Ratio 37.00 H (12.00-20.00) Ratio Calcium 7.9 L (8.7-10.3) mg/dL Magnesium 1.4 L (1.5-2.4) mg/dL ALT 7 L (8-44) U/L Alkaline Phosphatase 205 H (41-126) U/L Total Protein 4.2 L (6.2-8.2) g/dL Albumin 1.7 L (3.8-4.9) g/dL Albumin/Globulin Ratio 0.68 L (1.60-3.17) Ratio Assessment and Plan Assessment: s/p IR place drain, stable for discharge back to [facility] Time with Patient: Less than 30
[2024-05-03] MEDS: APIXABAN 5 MG TAB PO SCH (22:19)
--- NOTE | 2024-05-04 06:03 | P.PN ---
Subjective Progress Note Date: 05/03/24 68-year-old female with past medical history of metastatic rectal cancer, recent perforated diverticula with colostomy who presents to the emergency department reporting that her hepatic drain had been removed. Patient was discharged yesterday from our facility to [facility]. This morning they noted that the patient's drain fell out. It was placed on April 22 for an intra-abdominal abscess. Patient was discharged yesterday on antibiotics. She admits to nausea last night. Does have some generalized abdominal pain but states it is no worse than what it was previously. She denies any fevers. No other alleviating, precipitating or modifying factors Blood work reveals WBC of 10.3, hemoglobin of 10.9 and platelet count of 270, sodium 132, potassium 3.6, BUNs/creatinine of 23/0.56 and blood glucose of 114 -Patient has been admitted for reevaluation by IR for drain placement -Labs are reviewed WBC 10.17, hemoglobin 9.2, sodium 133, potassium 3.4, BUNs/creatinine of 19/0.6 -- Patient to be evaluated by IR for drain placement 05/03/2024 Patient is seen in follow-up this morning scheduled to undergo drainage tube placement and Eliquis has been on hold. Hopeful for cultures per ID to dete rmine discharge antibiotics. Patient is continued on ceftriaxone along with Flagyl and infectious disease recommends repeat cultures to determine appropriate antibiotics. Will resume Eliquis after drainage tube placement. Plan will be for patient to return to [facility] although will have to wait for finalized cultures prior to discharge. Patient is afebrile with occasional cough, denies chest pain or palpitations. Continue with current regimen and will follow-up on repeat labs Review of systems: Constitutional: No reports of fatigue, fever, or chills Cardiovascular: No reports of chest pain or palpitations Respiratory: No reports of shortness of breath or cough GI: No reports of nausea, vomiting, or diarrhea : No reports of dysuria or retention Neurovascular: reports of generalized weakness All medications have been reviewed Physical exam: Gen: This is a 68-year-old female who is awake, alert and oriented x 3, well- developed, elderly appearing, ill-appearing HEENT: Head is atraumatic, normocephalic. Pupils equal, round. Sclerae is anicteric. NECK: Supple. No JVD. No lymphadenopathy. No thyromegaly. LUNGS: Diminished breath sounds bilaterally otherwise clear to auscultation. No wheezes or rhonchi. No intercostal retractions. HEART: S1, S2 are muffled ABDOMEN: Soft. Bowel sounds are present. No masses. No tenderness. Previous drainage site noted EXTREMITIES: No pedal edema. No calf tenderness. NEUROLOGICAL: Patient is awake, alert and oriented x3. Cranial nerves 2 through 12 are grossly intact. Diffusely weak Assessment: Left pelvic abscess with smaller perihepatic abscess; status post drain placement by IR; drain is dislodged; patient was admitted for IR to reevaluate and replace the drain. Scheduled to undergo drain placement today 05/03/2024 Pneumoperitoneum, status post exploratory laparotomy and sigmoid colon resection with end colostomy Repeat CAT scan on 04/18 showing possible left pelvic abscess 4.1 cm and smaller perihepatic abscess Right upper extremity DVT in right IJ and subclavian vein A-fib with RVR, currently rate controlled Acute COVID-19 infection Acute hypoxic respiratory failure Acute sigmoid colon perforation secondary to diverticulitis Hyponatremia Hypokalemia History of rectal cancer GI prophylaxis DVT prophylaxis Full code Plan: Patient to undergo drainage tube placement with infectious disease following maintained on antibiotics. Repeat cultures to be obtained during drainage placement and will need to await finalized cultures of this to determine appropriate discharge antibiotics. [facility] Will resume Eliquis after drainage tube placement Due to multiple complex medical issues, overall prognosis is guarded The impression and plan of care has been dictated by Becki Ndiaye, Nurse Practitioner as directed. Dr. Kenneth MD I have performed a history and examination and MDM of this patient, discussed the same with the dictator, and agree with the dictator's assessment and plan as written ,documented as a scribe. Based on total visit time, I have performed more than 50% of the visit. Objective - Vital Signs Vital signs: Vital Signs Temp 97.7 F 05/03/24 13:44 Pulse 60 05/03/24 13:44 Resp 16 05/03/24 13:44 BP 157/73 05/03/24 13:44 Pulse Ox 91 L 05/03/24 13:44 FiO2 Intake & Output 05/02/24 05/03/24 05/03/24 18:59 06:59 18:59 Output Total 400 175 Balance -400 -175 Output: Urine 400 175 Other: Voiding Method Indwelling Catheter Indwelling Catheter Indwelling Catheter - Labs CBC & Chem 7: 05/03/24 04:27 05/03/24 04:27 Labs: Abnormal Lab Results - Last 24 Hours (Table) 05/02/24 05/03/24 05/03/24 Range/Units 17:00 04:27 04:27 RBC 2.97 L (4.10-5.20) X 10*6/uL Hgb 8.8 L (12.0-15.0) g/dL Hct 27.5 L (37.2-46.3) % RDW 16.1 H (11.5-14.5) % Immature Gran # 0.20 H (0.00-0.04) X 10*3/uL Eosinophils # 0.03 L (0.04-0.35) X 10*3/uL PT 13.1 H (10.0-12.5) sec INR 1.2 H (<1.2) D-Dimer 3.30 H (<0.60) mg/L FEU Creatinine (0.6-1.5) mg/dL BUN/Creatinine Ratio (12.00-20.00) Ratio Calcium (8.7-10.3) mg/dL Magnesium (1.5-2.4) mg/dL ALT (8-44) U/L Alkaline Phosphatase (41-126) U/L Total Protein (6.2-8.2) g/dL Albumin (3.8-4.9) g/dL Albumin/Globulin Ratio (1.60-3.17) Ratio 05/03/24 Range/Units 04:27 RBC (4.10-5.20) X 10*6/uL Hgb (12.0-15.0) g/dL Hct (37.2-46.3) % RDW (11.5-14.5) % Immature Gran # (0.00-0.04) X 10*3/uL Eosinophils # (0.04-0.35) X 10*3/uL PT (10.0-12.5) sec INR (<1.2) D-Dimer (<0.60) mg/L FEU Creatinine 0.4 L (0.6-1.5) mg/dL BUN/Creatinine Ratio 37.00 H (12.00-20.00) Ratio Calcium 7.9 L (8.7-10.3) mg/dL Magnesium 1.4 L (1.5-2.4) mg/dL ALT 7 L (8-44) U/L Alkaline Phosphatase 205 H (41-126) U/L Total Protein 4.2 L (6.2-8.2) g/dL Albumin 1.7 L (3.8-4.9) g/dL Albumin/Globulin Ratio 0.68 L (1.60-3.17) Ratio
[2024-05-04 10:14] LABS: BUN/Creat Ratio 41.33 Ratio (12.00-20.00); Blood Urea Nitrogen 12.4 mg/dL (9.0-27.0); Calcium 7.8 mg/dL (8.7-10.3); Carbon Dioxide 26.1 mmol/L (21.6-31.8); Chloride 104 mmol/L (96-109); Glucose 95 mg/dL (70-110); Potassium 3.5 mmol/L (3.5-5.5); Sodium 136 mmol/L (135-145)
--- NOTE | 2024-05-04 12:14 | P.PN ---
Subjective Progress Note Date: 05/04/24 Principal diagnosis: Reason for follow-up is COVID-19 intra-abdominal abscess Patient is a 68-year-old female with a past medical history significant for hypertension osteoarthritis, metastatic rectal cancer recent admission to the hospital with perforated diverticulitis status post diverting colostomy and did develop intra-abdominal abscess status post IR drainage c ulture positive for Clostridium patient has developed a DVT to the right upper extremity has decided not to use another PICC line and the patient was [facility] oral Ceftin and Flagyl patient had been sent back to the ER after the drainage catheter fell off, with repeat CT abdominal pelvis did shows fluid collection just below the right diaphram 7.2 X2.6X 7.5 cm also tested positive for COVID prompted this consultation. On today's evaluation that is 05/04/2024,the patient denies any fever or any chills, patient is breathing comfortably on 2 L current oxygen m air, the patie nt denies chest pain shortness of breath and no worsening cough or sputum production, patient abdominal pain, told her no vomiting or worsening output. Patient white count is 9.87 as of yesterday no CBC was done today creatinine 0.3 abdominal cultures pending Objective - Vital Signs Vital signs: Vital Signs Temp 97.4 F L 05/04/24 07:40 Pulse 63 05/04/24 07:40 Resp 18 05/04/24 07:40 BP 138/79 05/04/24 07:40 Pulse Ox 98 05/04/24 07:40 FiO2 Intake & Output 05/03/24 05/04/24 05/04/24 18:59 06:59 18:59 Intake Total 250 Output Total 300 0 Balance -50 0 Intake: Intake, IV Titration 250 Amount Magnesium Sulfate-D5w Pmx 200 1 gm In Dextrose/Water 1 100ml.bag @ 100 mls/hr IVPB Q1H ABBEY Rx#: [id number] cefTRIAXone 2 gm In 50 Sodium Chloride 0.9% 50 ml @ 100 mls/hr IVPB Q24HR ABBEY Rx#:[id number] Output: Urine 300 0 Other: Voiding Method Indwelling Catheter Indwelling Catheter # Bowel Movements 1 - Exam GENERAL DESCRIPTION: An elderly female lying in bed in no distress RESPIRATORY SYSTEM: Unlabored breathing , coarse breath sounds HEART: S1 S2 regular rate and rhythm , ABDOMEN: Soft , no tenderness EXTREMITIES: No edema feet - Labs CBC & Chem 7: 05/03/24 04:27 05/04/24 06:03 Labs: Abnormal Lab Results - Last 24 Hours (Table) 05/04/24 Range/Units 06:03 Creatinine 0.3 L (0.6-1.5) mg/dL BUN/Creatinine Ratio 41.33 H (12.00-20.00) Ratio Calcium 7.8 L (8.7-10.3) mg/dL Microbiology - Last 24 Hours (Table) 05/03/24 13:33 Gram Stain - Preliminary Aspirate Assessment and Plan (1) Penicillin allergy Current Visit: Yes Status: Acute Code(s): Z88.0 - ALLERGY STATUS TO PENICILLIN SNOMED Code(s): 92190634 (2) COVID-19 Current Visit: Yes Status: Acute Code(s): U07.1 - COVID-19 SNOMED Code(s): 066685797 (3) Intra-abdominal abscess Current Visit: Yes Status: Acute Code(s): K65.1 - PERITONEAL ABSCESS SNOMED Code(s): 94372395 Plan: 1patient tested positive for COVID-19 patient did have a cough currently not running any fever and not hypoxic, patient did have a chest x-ray did not show a ny features suggestive COVID-19 pneumonia treatment is mostly supportive 2-patient did have a history of perforated diverticulitis intra-abdominal abscess patient drainage catheter did fell off CT with persistent abdominal abscess patient is status post IR drainage of this abscess and drainage catheter placement culture have been drained results will be followed 3-patient to continue with Rocephin 2 g daily along with oral Flagyl follow-up on the repeat cultures to determine discharge antibiotics Dictation was produced using [employer] dictation software. please excuse any grammatical, word or spelling errors. Time with Patient: Less than 30
[2024-05-04] MEDS: ONDANSETRON 4 MG/2 ML VIAL IVP PRN (15:31)
[2024-05-05] MEDS: ALPRAZolam 0.25 MG TAB PO PRN (03:39)
[2024-05-05] MEDS: FUROSEMIDE 10 MG/ML 4 ML VIAL IV STA (06:48)
[2024-05-05 06:56] LABS: African American GFR (CKD) >90 (>60 ml/min/1.73 sqM); Anion Gap 3 mmol/L; Blood Urea Nitrogen 11 mg/dL (7-17); Calcium 7.9 mg/dL (8.4-10.2); Carbon Dioxide 29 mmol/L (22-30); Chloride 99 mmol/L (98-107); Glucose 109 mg/dL (74-99); Magnesium 1.6 mg/dL (1.6-2.3); Non-African American GFR(CKD) >90 (>60 ml/min/1.73 sqM); Potassium 3.5 mmol/L (3.5-5.1); Sodium 131 mmol/L (137-145)
[2024-05-05 07:20] LABS: Anisocytosis Slight; Basophils % (A) 0 %; Eosinophils % (A) 0 %; Hypochromasia Slight; Lymphocytes # (A) 0.9 k/uL (1.0-4.8); Lymphocytes % (A) 9 %; MCH 30.1 pg (25.0-35.0); MCHC 32.2 g/dL (31.0-37.0); MCV 93.5 fL (80.0-100.0); Mean Platelet Volume 7.8; Monocytes # (A) 0.5 k/uL (0-1.0); Monocytes % (A) 5 %; Neutrophils # (A) 8.1 k/uL (1.3-7.7); Neutrophils % (A) 84 %; Platelet Count 408 k/uL (150-450); RDW 16.4 % (11.5-15.5); WBC 9.6 k/uL (3.8-10.6)
--- NOTE | 2024-05-05 07:24 | XR ---
EXAMINATION TYPE: XR chest 1V portable DATE OF EXAM: 05/05/2024 7:18 AM COMPARISON: Chest radiographs from CLINICAL INDICATION: Female, 68 years old with history of shortness of breath; [facility] TECHNIQUE: XR chest 1V portable Frontal view of the chest. FINDINGS: Lungs/Pleura: Blunting of the costophrenic angles.. There is no evidence of pleural effusion, focal c onsolidation, or pneumothorax. Pulmonary vascularity: Unremarkable. Heart/mediastinum: Cardiomediastinal silhouette is unremarkable. Musculoskeletal: No acute osseous pathology. Other findings: None Lines/Tubes: Knovjr-y-Wvws projecting over the right hemithorax with distal tip at the cavoatrial junction. Right thoracotomy tube is present without evidence of pneumothorax. IMPRESSION: Right Pleurx catheter with trace bilateral pleural effusions suggested. [facility], , 05/05/2024 7:21 AM
--- NOTE | 2024-05-05 10:09 | CDI ---
Documentation Clarification Form Date: 05/05/2024 09:36:38 AM From: Melva Gupta RN, CCDS Phone: [phone] Admit Date: 05/02/2024 07:27:00 AM Patient Name: Kaitlyn Alvarez Visit Number: [id number] Discharge Date: ATTENTION: The Clinical Documentation Specialists (CDI) and [facility] Coding Staff appreciate your assistance in clarifying documentation. Please respond to the clarification below the line at the bottom and electronically sign. The CDI & [facility] Coding staff will review the response and follow-up if needed. Please note: Queries are made part of the Legal Health Record. If you have any questions, please contact the author of this message via ITS. Doctor. Isa Cooper Acute hypoxic respiratory failure is documented in the H/P and subsequent progress which may lack sufficient clinical evidence/support in the medical record. Additional clarification is requested. History/Risk Factors: Cancer, Hypertension, Osteoarthritis (OA), Thyroid Disorder, perforated diverticula with colostomy Left pelvic abscess with smaller perihepatic abscess Clinical Indicators: 68-year-old female with past medical history of metastatic rectal cancer, recent perforated diverticula with colostomy. She presents to ED reporting that her hepatic drain had been removed, fell out. It was placed on April 22. 05/02 VS (07:44) 146/71 72 16 98.2 90% RA, Respiratory Effort Hernan non-Labored Prefers sitting, Short of Breath with activity 05/02 VS (13:44) 142/71 60 16 98.1 90% RA 05/02 VS (20:37) 147/87 74 18 97.7 95% RA 05/01 Labs: WBC 10.17, HGB 9.2 Neutrophils 7.91, Na 133 K+ 2.4, COVID -Detected Treatment: Incentive Spirometry Q1H Monitor O2 Sat's (titrate) Please clarify if acute hypoxic respiratory failure is a valid diagnosis? [ ] No, acute hypoxic respiratory failure is ruled out [ ] Yes, acute hypoxic respiratory failure is present as evidence by (additional clinical support): [ ] Other (please specify diagnosis) [ ] Unable to determine (Template Last Revised: September 2023) No, acute hypoxic respiratory failure is ruled out MTDD
--- NOTE | 2024-05-05 10:11 | P.PN ---
Subjective Progress Note Date: 05/04/24 68-year-old female with past medical history of metastatic rectal cancer, recent perforated diverticula with colostomy who presents to the emergency department reporting that her hepatic drain had been removed. Patient was discharged yesterday from our facility to [facility]. This morning they noted that the patient's drain fell out. It was placed on April 22 for an intra-abdominal abscess. Patient was discharged yesterday on antibiotics. She admits to nausea last night. Does have some generalized abdominal pain but states it is no worse than what it was previously. She denies any fevers. No other alleviating, precipitating or modifying factors Blood work reveals WBC of 10.3, hemoglobin of 10.9 and platelet count of 270, sodium 132, potassium 3.6, BUNs/creatinine of 23/0.56 and blood glucose of 114 -Patient has been admitted for reevaluation by IR for drain placement -Labs are reviewed WBC 10.17, hemoglobin 9.2, sodium 133, potassium 3.4, BUNs/creatinine of 19/0.6 -- Patient to be evaluated by IR for drain placement 05/03/2024 Patient is seen in follow-up this morning scheduled to undergo drainage tube placement and Eliquis has been on hold. Hopeful for cultures per ID to dete rmine discharge antibiotics. Patient is continued on ceftriaxone along with Flagyl and infectious disease recommends repeat cultures to determine appropriate antibiotics. Will resume Eliquis after drainage tube placement. Plan will be for patient to return to [facility] although will have to wait for finalized cultures prior to discharge. Patient is afebrile with occasional cough, denies chest pain or palpitations. Continue with current regimen and will follow-up on repeat labs 05/04/2024 Patient is seen in follow-up today did have drainage tube replaced and pending cultures. Eliquis has been resumed and will await finalized cultures to determine discharge antibiotics. Patient was initially sent to rehab on oral antibiotics although infectious disease considering possible IV antibiotic need. Patient is afebrile and not tolerating much diet and is extremely weak will need continued PT/OT therapy on discharge. Plan is for patient to return to [facility] once cleared by consultations. Review of systems: Constitutional: No reports of fatigue, fever, or chills Cardiovascular: No reports of chest pain or palpitations Respiratory: No reports of shortness of breath or cough GI: No reports of nausea, vomiting, or diarrhea : No reports of dysuria or retention Neurovascular: reports of generalized weakness All medications have been reviewed Physical exam: Gen: This is a 68-year-old female who is awake, alert and oriented x 3, well- developed, elderly appearing, ill-appearing HEENT: Head is atraumatic, normocephalic. Pupils equal, round. Sclerae is anicteric. NECK: Supple. No JVD. No lymphadenopathy. No thyromegaly. LUNGS: Diminished breath sounds bilaterally otherwise clear to auscultation. No wheezes or rhonchi. No intercostal retractions. HEART: S1, S2 are muffled ABDOMEN: Soft. Bowel sounds are present. No masses. No tenderness. Previous drainage site noted EXTREMITIES: No pedal edema. No calf tenderness. NEUROLOGICAL: Patient is awake, alert and oriented x3. Cranial nerves 2 through 12 are grossly intact. Diffusely weak Assessment: Left pelvic abscess with smaller perihepatic abscess; status post drain placement by IR; drain is dislodged; patient was admitted for IR to replacethe drain. Status post drainage placement on 05/03/2024. Pneumoperitoneum, status post exploratory laparotomy and sigmoid colon resection with end colostomy Repeat CAT scan on 04/18 showing possible left pelvic abscess 4.1 cm and smaller perihepatic abscess Right upper extremity DVT in right IJ and subclavian vein, continued on Eliquis A-fib with RVR, currently rate controlled Acute COVID-19 infection Acute hypoxic respiratory failure Acute sigmoid colon perforation secondary to diverticulitis Hyponatremia Hypokalemia History of rectal cancer GI prophylaxis DVT prophylaxis, on Eliquis Full code Plan: Patient underwent drainage tube placement with infectious disease following maintained on antibiotics. Awaiting repeat cultures to finalize to determine discharge antibiotics. Patient may need IV antibiotic on discharge. Patient will be returning to [facility] once cleared by consultations Eliquis being resumed after drainage tube placement Follow-up on repeat labs. Encouraged oral intake. Patient is not eating much, dietary on consult Due to multiple complex medical issues, overall prognosis is guarded The impression and plan of care has been dictated by Becki Ndiaye, Nurse Practitioner as directed. Dr. Kenneth MD I have performed a history and examination and MDM of this patient, discussed the same with the dictator, and agree with the dictator's assessment and plan as written ,documented as a scribe. Based on total visit time, I have performed more than 50% of the visit. Objective - Vital Signs Vital signs: Vital Signs Temp 97.4 F L 05/05/24 01:27 Pulse 63 05/05/24 03:35 Resp 16 05/05/24 01:27 BP 151/72 05/05/24 03:35 Pulse Ox 97 05/05/24 01:27 FiO2 Intake & Output 05/04/24 05/05/24 05/05/24 18:59 06:59 18:59 Output Total 275 225 Balance -275 -225 Output: Urine 275 225 Other: Voiding Method Indwelling Catheter Indwelling Catheter - Labs CBC & Chem 7: 05/05/24 06:18 05/05/24 06:18 Labs: Abnormal Lab Results - Last 24 Hours (Table) 05/04/24 05/05/24 05/05/24 Range/Units 06:03 06:18 06:18 RBC 3.00 L (3.80-5.40) m/uL Hgb 9.0 L D (11.4-16.0) gm/dL Hct 28.0 L (34.0-46.0) % RDW 16.4 H (11.5-15.5) % Neutrophils # 8.1 H (1.3-7.7) k/uL Lymphocytes # 0.9 L (1.0-4.8) k/uL Sodium 131 L (137-145) mmol/L Creatinine 0.3 L 0.33 L (0.6-1.5) mg/dL BUN/Creatinine Ratio 41.33 H (12.00-20.00) Ratio Glucose 109 H (74-99) mg/dL Calcium 7.8 L 7.9 L (8.7-10.3) mg/dL Microbiology - Last 24 Hours (Table) 05/03/24 13:33 Gram Stain - Preliminary Aspirate Body Fluid Culture - Preliminary
--- NOTE | 2024-05-05 10:49 | CDI ---
Documentation Clarification Form Date: 05/05/2024 10:09:59 AM From: Melva Gupta RN, CCDS Phone: [phone] Admit Date: 05/02/2024 07:27:00 AM Patient Name: Kaitlyn Alvarez Visit Number: [id number] Discharge Date: ATTENTION: The Clinical Documentation Specialists (CDI) and [facility] Coding Staff appreciate your assistance in clarifying documentation. Please respond to the clarification below the line at the bottom and electronically sign. The CDI & [facility] Coding staff will review the response and follow-up if needed. Please note: Queries are made part of the Legal Health Record. If you have any questions, please contact the author of this message via ITS. DoctorMerlene Cooper Sepsis is documented in the H/P on 04/30/24 and progress note on 05/01/24 which may lack sufficient clinical evidence/support in the medical record. Additional clarification is requested. History/Risk Factors: Cancer, Hypertension, Osteoarthritis (OA), Thyroid Disorder, perforated diverticula with colostomy Left pelvic abscess with smaller perihepatic abscess Clinical Indicators: 68-year-old female with past medical history of metastatic rectal cancer, recent perforated diverticula with colostomy. She presents to ED on 04/30/24 reporting that her hepatic drain had been removed, fell out. It was placed on April 22. 04/30 VS: 138/86 80 18 97.6 95% RA 04/30 Labs: WBC 10.6, Neutrophils 8.5, NA 132, BUN 23, CR 0.56, AST 37, ALK PHOS 206, 05/01 Labs: WBC 10.17, HGB 9.2 Neutrophils 7.91, Na 133 K+ 2.4, COVID -Detected Admit 05/02 VS (07:44) 146/71 72 16 98.2 90% RA, Treatment: Rocephin 2 GM IVPB Q 24 HRS Flagyl 500 MG PO TID Please clarify if sepsis is a valid diagnosis? [ ] No, sepsis is ruled out [ ] Yes, sepsis is present as evidence by (additional clinical support): [ ] Other (please specify diagnosis) [ ] Unable to determine (Template Last Revised: September 2023) No, sepsis is ruled out MTDD
--- NOTE | 2024-05-05 12:10 | P.PN ---
Subjective Progress Note Date: 05/05/24 Principal diagnosis: Reason for follow-up is COVID-19 intra-abdominal abscess Patient is a 68-year-old female with a past medical history significant for hypertension osteoarthritis, metastatic rectal cancer recent admission to the hospital with perforated diverticulitis status post diverting colostomy and did develop intra-abdominal abscess status post IR drainage c ulture positive for Clostridium patient has developed a DVT to the right upper extremity has decided not to use another PICC line and the patient was discharged to assisted on oral Ceftin and Flagyl patient had been sent back to the ER after the drainage catheter fell off, with repeat CT abdominal pelvis did shows fluid collection just below the right diaphram 7.2 X2.6X 7.5 cm also tested positive for COVID prompted this consultation. On today's evaluation that is 05/05/2024,the patient remains to be afebrile, patient is on 1 L nasal cannula supplemental oxygen and mention breathing comfo rtably cough decreased intensity no nausea vomiting no abdominal pain patient has developed a painful sore to the right heel area. Patient white count is 9.6, creatinine 0.33 abdominal culture currently pending Objective - Vital Signs Vital signs: Vital Signs Temp 97.5 F L 05/05/24 10:00 Pulse 59 L 05/05/24 10:00 Resp 18 05/05/24 10:00 BP 161/76 05/05/24 10:00 Pulse Ox 100 05/05/24 10:00 FiO2 Intake & Output 05/04/24 05/05/24 05/05/24 18:59 06:59 18:59 Output Total 275 225 Balance -275 -225 Output: Urine 275 225 Other: Voiding Method Indwelling Catheter Indwelling Catheter - Exam GENERAL DESCRIPTION: An elderly female lying in bed in no distress RESPIRATORY SYSTEM: Unlabored breathing , coarse breath sounds HEART: S1 S2 regular rate and rhythm , ABDOMEN: Soft , no tenderness EXTREMITIES: No edema feet - Labs CBC & Chem 7: 05/05/24 06:18 05/05/24 06:18 Labs: Abnormal Lab Results - Last 24 Hours (Table) 05/05/24 05/05/24 Range/Units 06:18 06:18 RBC 3.00 L (3.80-5.40) m/uL Hgb 9.0 L D (11.4-16.0) gm/dL Hct 28.0 L (34.0-46.0) % RDW 16.4 H (11.5-15.5) % Neutrophils # 8.1 H (1.3-7.7) k/uL Lymphocytes # 0.9 L (1.0-4.8) k/uL Sodium 131 L (137-145) mmol/L Creatinine 0.33 L (0.52-1.04) mg/dL Glucose 109 H (74-99) mg/dL Calcium 7.9 L (8.4-10.2) mg/dL Microbiology - Last 24 Hours (Table) 05/03/24 13:33 Gram Stain - Preliminary Aspirate Body Fluid Culture - Preliminary Assessment and Plan (1) Penicillin allergy Current Visit: Yes Status: Acute Code(s): Z88.0 - ALLERGY STATUS TO PENICILLIN SNOMED Code(s): 12744943 (2) COVID-19 Current Visit: Yes Status: Acute Code(s): U07.1 - COVID-19 SNOMED Code(s): 240728334 (3) Intra-abdominal abscess Current Visit: Yes Status: Acute Code(s): K65.1 - PERITONEAL ABSCESS SNOMED Code(s): 30565801 (4) Stage I pressure ulcer of right heel Current Visit: Yes Status: Acute Code(s): L89.611 - PRESSURE ULCER OF RIGHT HEEL, STAGE 1 SNOMED Code(s): 76626224148298 Plan: 1patient tested positive for COVID-19 patient did have a cough currently not running any fever and not hypoxic, patient did have a chest x-ray did not show any features suggestive COVID-19 pneumonia treatment is mostly supportive 2-patient did have a history of perforated diverticulitis/intra-abdominal abscess patient drainage catheter did fell off CT with persistent abdominal abscess patient is status post IR drainage of this abscess and drainage catheter placement culture have been obtained which are currently pending 3-patient currently being treated with Rocephin 2 g daily along with oral Flagyl while waiting for cultures to determine discharge antibiotics Dictation was produced using [employer] dictation software. please excuse any grammatical, word or spelling errors.
--- NOTE | 2024-05-06 04:56 | P.PN ---
Subjective Progress Note Date: 05/05/24 68-year-old female with past medical history of metastatic rectal cancer, recent perforated diverticula with colostomy who presents to the emergency department reporting that her hepatic drain had been removed. Patient was discharged yesterday from our facility to [facility]. This morning they noted that the patient's drain fell out. It was placed on April 22 for an intra-abdominal abscess. Patient was discharged yesterday on antibiotics. She admits to nausea last night. Does have some generalized abdominal pain but states it is no worse than what it was previously. She denies any fevers. No other alleviating, precipitating or modifying factors Blood work reveals WBC of 10.3, hemoglobin of 10.9 and platelet count of 270, sodium 132, potassium 3.6, BUNs/creatinine of 23/0.56 and blood glucose of 114 -Patient has been admitted for reevaluation by IR for drain placement -Labs are reviewed WBC 10.17, hemoglobin 9.2, sodium 133, potassium 3.4, BUNs/creatinine of 19/0.6 -- Patient to be evaluated by IR for drain placement 05/03/2024 Patient is seen in follow-up this morning scheduled to undergo drainage tube placement and Eliquis has been on hold. Hopeful for cultures per ID to dete rmine discharge antibiotics. Patient is continued on ceftriaxone along with Flagyl and infectious disease recommends repeat cultures to determine appropriate antibiotics. Will resume Eliquis after drainage tube placement. Plan will be for patient to return to [facility] although will have to wait for finalized cultures prior to discharge. Patient is afebrile with occasional cough, denies chest pain or palpitations. Continue with current regimen and will follow-up on repeat labs 05/04/2024 Patient is seen in follow-up today did have drainage tube replaced and pending cultures. Eliquis has been resumed and will await finalized cultures to determine discharge antibiotics. Patient was initially sent to rehab on oral antibiotics although infectious disease considering possible IV antibiotic need. Patient is afebrile and not tolerating much diet and is extremely weak will need continued PT/OT therapy on discharge. Plan is for patient to return to [facility] once cleared by consultations. 05/05/2024 Patient is seen in follow-up today was given a dose of Lasix and showing some improvements in respiratory status. Recommend send spirometer use at least 10 times every hour while awake. Patient is significantly weak and is maintained on IV antibiotics with infectious disease following with plans on returning to [facility] once discharged. Currently awaiting cultures that are pending. Patient will continue with drainage tube and outpatient follow-up with surgery. Review of systems: Constitutional: No reports of fatigue, fever, or chills Cardiovascular: No reports of chest pain or palpitations Respiratory: reports of shortness of breath, no cough GI: No reports of nausea, vomiting, or diarrhea : No reports of dysuria or retention Neurovascular: reports of generalized weakness All medications have been reviewed Physical exam: Gen: This is a 68-year-old female who is awake, alert and oriented x 3, well- developed,, thin built, elderly appearing, ill-appearing HEENT: Head is atraumatic, normocephalic. Pupils equal, round. Sclerae is anicteric. NECK: Supple. No JVD. No lymphadenopathy. No thyromegaly. LUNGS: Diminished breath sounds bilaterally otherwise clear to auscultation. No wheezes or rhonchi. No intercostal retractions. HEART: S1, S2 are muffled ABDOMEN: Soft. Bowel sounds are present. No masses. No tenderness. Previous drainage site noted EXTREMITIES: No pedal edema. No calf tenderness. NEUROLOGICAL: Patient is awake, alert and oriented x3. Cranial nerves 2 through 12 are grossly intact. Diffusely weak Assessment: Left pelvic abscess with smaller perihepatic abscess; status post drain placement by IR; drain is dislodged; patient was admitted for IR to replace the drain. Status post drainage placement on 05/03/2024. Pneumoperitoneum, status post exploratory laparotomy and sigmoid colon resection with end colostomy Repeat CAT scan on 04/18 showing possible left pelvic abscess 4.1 cm and smaller perihepatic abscess Right upper extremity DVT in right IJ and subclavian vein, continued on Eliquis A-fib with RVR, currently rate controlled Acute COVID-19 infection Acute hypoxic respiratory failure Acute sigmoid colon perforation secondary to diverticulitis Hyponatremia Hypokalemia History of rectal cancer GI prophylaxis DVT prophylaxis, on Eliquis Full code Plan: Patient underwent drainage tube placement with infectious disease following maintained on antibiotics. Awaiting repeat cultures to finalize to determine discharge antibiotics. Patient may need IV antibiotic on discharge. Patient will be returning to [facility] once cleared by consultations Eliquis being resumed after drainage tube placement Follow-up on repeat labs. Encouraged oral intake. Patient is not eating much, dietary on consult Due to multiple complex medical issues, overall prognosis is guarded The impression and plan of care has been dictated by Becki Ndiaye, Nurse Practitioner as directed. Dr. Kenneth MD I have performed a history and examination and MDM of this patient, discussed the same with the dictator, and agree with the dictator's assessment and plan as written ,documented as a scribe. Based on total visit time, I have performed more than 50% of the visit. Objective - Vital Signs Vital signs: Vital Signs Temp 97.4 F L 05/05/24 01:27 Pulse 63 05/05/24 03:35 Resp 16 05/05/24 01:27 BP 151/72 05/05/24 03:35 Pulse Ox 97 05/05/24 01:27 FiO2 Intake & Output 05/04/24 05/05/24 05/05/24 18:59 06:59 18:59 Output Total 275 225 Balance -275 -225 Output: Urine 275 225 Other: Voiding Method Indwelling Catheter Indwelling Catheter - Labs CBC & Chem 7: 05/05/24 06:18 05/05/24 06:18 Labs: Abnormal Lab Results - Last 24 Hours (Table) 05/04/24 05/05/24 05/05/24 Range/Units 06:03 06:18 06:18 RBC 3.00 L (3.80-5.40) m/uL Hgb 9.0 L D (11.4-16.0) gm/dL Hct 28.0 L (34.0-46.0) % RDW 16.4 H (11.5-15.5) % Neutrophils # 8.1 H (1.3-7.7) k/uL Lymphocytes # 0.9 L (1.0-4.8) k/uL Sodium 131 L (137-145) mmol/L Creatinine 0.3 L 0.33 L (0.6-1.5) mg/dL BUN/Creatinine Ratio 41.33 H (12.00-20.00) Ratio Glucose 109 H (74-99) mg/dL Calcium 7.8 L 7.9 L (8.7-10.3) mg/dL Microbiology - Last 24 Hours (Table) 05/03/24 13:33 Gram Stain - Preliminary Aspirate Body Fluid Culture - Preliminary
[2024-05-06 10:12] LABS: Basophils # (A) 0.04 X 10*3/uL (0.00-0.10); Basophils % (A) 0.3 %; Eosinophils # (A) 0.02 X 10*3/uL (0.04-0.35); Eosinophils % (A) 0.2 %; HCT 27.9 % (37.2-46.3); Lymphocytes # (A) 0.93 X 10*3/uL (0.90-5.00); Lymphocytes % (A) 7.8 %; MCHC 32.3 g/dL (32.0-37.0); Mean Platelet Volume 9.6 FL (9.5-12.2); Monocytes % (A) 8.4 %; NRBC Per 100 WBC 0 X 10*3/uL (0.00-0.01); Neutrophils # (A) 9.87 X 10*3/uL (1.80-7.70); Neutrophils % (A) 82.4 %; Platelet Count 438 X 10*3/uL (140-440); RDW 16.2 % (11.5-14.5); WBC 11.97 X 10*3/uL (4.50-10.00)
[2024-05-06 10:23] LABS: Calcium 7.6 mg/dL (8.7-10.3); Carbon Dioxide 26.9 mmol/L (21.6-31.8); Chloride 105 mmol/L (96-109); Glucose 107 mg/dL (70-110); Magnesium 1.2 mg/dL (1.5-2.4); Potassium 3.4 mmol/L (3.5-5.5); Sodium 141 mmol/L (135-145)
[2024-05-06] MEDS ORDERED: Magnesium Replacement Protocol 1 EACH MISC MISCELLANE PRN (10:35)
[2024-05-06] MEDS ORDERED: Potassium Replacement Protocol 1 EACH MISC MISCELLANE PRN (10:35)
[2024-05-06] MEDS: POTASSIUM CHLORIDE ER 20 MEQ TAB.ER PO SCH (12:15)
[2024-05-06] MEDS: MAGNESIUM SULFATE-D5W PMX 1 GM in DEXTROSE/WATER 1 100ML.BAG IVPB SCH (12:15)
[2024-05-06 12:55] VITALS: BMI 24.4
[2024-05-06 13:16] VITALS: BP 169/82; PULSE 52; RESP 16; TEMP 98.9
--- NOTE | 2024-05-06 14:39 | P.DS ---
Providers Date of admission: 05/02/24 07:27 Expected date of discharge: 05/06/24 Attending physician: Andry Oakley MD Consults: 05/01/24 11:18 Consult Physician Routine Consulting Provider: Manisha Couch Consult Reason/Comments: COVID 19 Do you want consulting provider notified?: Yes Primary care physician: Gudelia Saravia Hospital Course: Final diagnosis Left pelvic abscess with smaller perihepatic abscess; status post drain placement by IR; drain is dislodged; patient was admitted for IR to replace the drain. Status post drainage placement on 05/03/2024. Pneumoperitoneum, status post exploratory laparotomy and sigmoid colon resection with end colostomy Repeat CAT scan on 04/18 showing possible left pelvic abscess 4.1 cm and smaller perihepatic abscess Right upper extremity DVT in right IJ and subclavian vein, continued on Eliquis A-fib with RVR, currently rate controlled Acute COVID-19 infection Acute hypoxic respiratory failure Acute sigmoid colon perforation secondary to diverticulitis Hyponatremia Hypokalemia History of rectal cancer GI prophylaxis DVT prophylaxis, on Eliquis Full code Discharge disposition Patient is being discharged in a stable condition with guarded prognosis to [facility]. Patient will follow-up with Dr. Saravia in the outpatient setting upon discharge. Patient is to continue with oral Ceftin and Flagyl per ID recommendations as directed for the next 2 weeks. Patient is to follow-up with general surgery outpatient as scheduled. Total time taken is greater than 35 minutes. Hospital course This is a 68-year-old female who was recently admitted with recent left pelvic abscess with perihepatic abscess and underwent drain placement by interventional radiology and was sent to [facility] for continued strength and mobility along with the antibiotic therapy. Patient drain became dislodged and was sent back here to have the drain replaced. Patient was having some congestion and cough and was tested and noted to be COVID-19 positive. Patient had drain replaced and repeat cultures are negative and blood cultures are negative with infectious disease following recommending to continue with Ceftin and Flagyl for 2-week course. Patient to follow-up with general surgery outpatient. Patient also with significant right upper extremity swelling secondary to DVT is maintained on Eliquis and has been resumed. Patient maintained on regular diet and not much of an appetite and has not been eating very well. CODE STATUS is a full code and needs to be addressed with patient and family. Please refer to other cons ultation notes for further HPI. Patient will be returning to [facility] [place] today. Currently no reports of chest pain, no worsening shortness of breath, or palpitations. Patient is afebrile. No reports of nausea or vomiting and patient is tolerating diet although not much of an appetite. Patient will be going to [facility] [place] today. Overall extremely guarded prognosis. Patient is high risk for readmissions given significant comorbidities and ongoing medical problems. Physical exam: Gen: This is a 68-year-old female who is lethargic although arousable, alert and oriented x 2-3, thin build, elderly appearing, ill-appearing HEENT: Head is atraumatic, normocephalic. Pupils equal, round. Sclerae is anicteric. NECK: Supple. No JVD. No lymphadenopathy. No thyromegaly. LUNGS: Diminished breath sounds bilaterally with some scattered rhonchi. No intercostal retractions. HEART: S1, S2 are muffled ABDOMEN: Soft. Bowel sounds are present. No masses. Mild tenderness. Drainage tube noted on the right EXTREMITIES: No pedal edema. No calf tenderness. Generalized edema noted NEUROLOGICAL: Patient is awake, alert and oriented x3. Cranial nerves 2 through 12 are grossly intact. Diffusely weak Please refer to medication reconciliation sheet for a list of medications. The impression and plan of care has been dictated by Becki Ndiaye, Nurse Practitioner as directed. Dr. Kenneth MD I have performed a history and examination and MDM of this patient, discussed the same with the dictator, and agree with the dictator's assessment and plan as written ,documented as a scribe. Based on total visit time, I have performed more than 50% of the visit. Patient Condition at Discharge: Fair Plan - Discharge Summary New Discharge Prescriptions: New Ascorbic Acid [Vitamin C] 500 mg PO DAILY tab Cholecalciferol [Vitamin D3 (25 Mcg = 1000 Iu)] 50 mcg PO DAILY tab guaiFENesin SYRUP 100MG/5ML [Robitussin] 200 mg PO Q6HR PRN ml PRN Reason: Cough Continue Acetaminophen [Tylenol Arthritis] 650 mg PO Q4H PRN PRN Reason: Pain Losartan [Cozaar] 25 mg PO DAILY tab Sennosides [Senokot] 8.6 mg PO DAILY tab metroNIDAZOLE [Flagyl] 500 mg PO TID #14 tab Amiodarone [Cordarone] 200 mg PO BID #0 tab Apixaban [Eliquis] 5 mg PO BID 30 Days #60 tab Metoprolol Tartrate [Lopressor] 50 mg PO BID tab cefuroxime axetiL [Ceftin] 500 mg PO BID 14 Days #28 tab ALPRAZolam [Xanax] 0.25 mg PO BID PRN 3 Days #6 tab PRN Reason: Anxiety Changed HYDROcodone/APAP 10-325MG [[place] 10-325] 1 tab PO Q4HR PRN #6 tab PRN Reason: Pain Discharge Medication List Acetaminophen [Tylenol Arthritis] 650 mg PO Q4H PRN 03/18/24 [History] Amiodarone [Cordarone] 200 mg PO BID #0 tab 04/29/24 [Rx] Apixaban [Eliquis] 5 mg PO BID 30 Days #60 tab 04/29/24 [Rx] Losartan [Cozaar] 25 mg PO DAILY tab 04/29/24 [Rx] Metoprolol Tartrate [Lopressor] 50 mg PO BID tab 04/29/24 [Rx] Sennosides [Senokot] 8.6 mg PO DAILY tab 04/29/24 [Rx] ALPRAZolam [Xanax] 0.25 mg PO BID PRN 3 Days #6 tab 05/06/24 [Rx] Ascorbic Acid [Vitamin C] 500 mg PO DAILY tab 05/06/24 [Rx] Cholecalciferol [Vitamin D3 (25 Mcg = 1000 Iu)] 50 mcg PO DAILY tab 05/06/24 [Rx] HYDROcodone/APAP 10-325MG [[place] 10-325] 1 tab PO Q4HR PRN #6 tab 05/06/24 [Rx] cefuroxime axetiL [Ceftin] 500 mg PO BID 14 Days #28 tab 05/06/24 [Rx] guaiFENesin SYRUP 100MG/5ML [Robitussin] 200 mg PO Q6HR PRN ml 05/06/24 [Rx] metroNIDAZOLE [Flagyl] 500 mg PO TID #14 tab 05/06/24 [Rx] Follow up Appointment(s)/Referral(s): Gudelia Saravia MD [Primary Care Provider] - 1-2 days Sam Wheatley DO [Doctor of Osteopathic Medicine] - 1 Week Activity/Diet/Wound Care/Special Instructions: Patient is returning to [facility] Activity as tolerated Patient continue on Ceftin 500 mg twice daily for the next 2 weeks, Flagyl 500 mg 3 times daily for the next 2 weeks Continue with drainage tube and outpatient follow-up with general surgery Recommend repeat CBC, BMP, magnesium Continue regular diet Discharge Disposition: TRANSFER TO SNF/ECF
--- NOTE | 2024-05-06 15:17 | P.PN ---
Subjective Progress Note Date: 05/06/24 Principal diagnosis: Reason for follow-up is COVID-19 intra-abdominal abscess Patient is a 68-year-old female with a past medical history significant for hypertension osteoarthritis, metastatic rectal cancer recent admission to the hospital with perforated diverticulitis status post diverting colostomy and did develop intra-abdominal abscess status post IR drainage c ulture positive for Clostridium patient has developed a DVT to the right upper extremity has decided not to use another PICC line and the patient was [facility] to [facility] on oral Ceftin and Flagyl patient had been sent back to the ER after the drainage catheter fell off, with repeat CT abdominal pelvis did shows fluid collection just below the right diaphram 7.2 X2.6X 7.5 cm also tested positive for COVID prompted this consultation. On today's evaluation that is 05/06/2024, the patient continues to be afebrile, the patient is on room air and breathing comfortably, the Pt denies having any chest pain and cough is decreased in intensity, the patient denies having any abdominal pain no vomiting did have output in the drainage catheter about 30 cc as reported by the nursing staff. Abdominal cultures so far negative white count is 11.97, creatinine 0.3 Objective - Vital Signs Vital signs: Vital Signs Temp 97.4 F L 05/06/24 07:55 Pulse 68 05/06/24 07:55 Resp 18 05/06/24 07:55 BP 167/90 05/06/24 07:55 Pulse Ox 99 05/06/24 07:55 FiO2 Intake & Output 05/05/24 05/06/24 05/06/24 18:59 06:59 18:59 Intake Total 120 Output Total 2100 90 Balance -1979 Intake: Oral 120 Output: Urine 2100 Stool 90 Other: Voiding Method Indwelling Catheter - Exam GENERAL DESCRIPTION: An elderly female lying in bed in no distress RESPIRATORY SYSTEM: Unlabored breathing , coarse breath sounds HEART: S1 S2 regular rate and rhythm , ABDOMEN: Soft , no tenderness EXTREMITIES: No edema feet - Labs CBC & Chem 7: 05/06/24 06:39 05/06/24 06:39 Labs: Abnormal Lab Results - Last 24 Hours (Table) 05/06/24 05/06/24 Range/Units 06:39 06:39 WBC 11.97 H (4.50-10.00) X 10*3/uL RBC 3.00 L (4.10-5.20) X 10*6/uL Hgb 9.0 L (12.0-15.0) g/dL Hct 27.9 L (37.2-46.3) % RDW 16.2 H (11.5-14.5) % Immature Gran # 0.11 H (0.00-0.04) X 10*3/uL Neutrophils # 9.87 H (1.80-7.70) X 10*3/uL Eosinophils # 0.02 L (0.04-0.35) X 10*3/uL Potassium 3.4 L (3.5-5.5) mmol/L Creatinine 0.3 L (0.6-1.5) mg/dL BUN/Creatinine Ratio 30.00 H (12.00-20.00) Ratio Calcium 7.6 L (8.7-10.3) mg/dL Magnesium 1.2 L (1.5-2.4) mg/dL Microbiology - Last 24 Hours (Table) 05/03/24 13:33 Gram Stain - Preliminary Aspirate Body Fluid Culture - Preliminary Assessment and Plan (1) Penicillin allergy Current Visit: Yes Status: Acute Code(s): Z88.0 - ALLERGY STATUS TO PENICILLIN SNOMED Code(s): 74846884 (2) COVID-19 Current Visit: Yes Status: Acute Code(s): U07.1 - COVID-19 SNOMED Code(s): 470891234 (3) Intra-abdominal abscess Current Visit: Yes Status: Acute Code(s): K65.1 - PERITONEAL ABSCESS SNOMED Code(s): 56953596 (4) Stage I pressure ulcer of right heel Current Visit: Yes Status: Acute Code(s): L89.611 - PRESSURE ULCER OF RIGHT HEEL, STAGE 1 SNOMED Code(s): 22950181516488 Plan: 1patient tested positive for COVID-19 patient did have a cough currently not running any fever and not hypoxic, patient did have a chest x-ray did not show any features suggestive COVID-19 pneumonia treatment is mostly supportive 2-patient did have a history of perforated diverticulitis/intra-abdominal abscess patient drainage catheter did fell off CT with persistent abdominal abscess patient is status post IR drainage of this abscess and drainage catheter placement culture have been obtained which are so far negative 3-patient care discussed with the INFORMATION ASSURANCE MANAGER working on discharge May consider oral Ceftin and Flagyl x 2 weeks on discharge however culture will need to be followed to finalize to make sure does not need any different antibiotics Dictation was produced using [employer] software. please excuse any grammatical, word or spelling errors.
== END 2024-05-06 19:01 | DRG 919 ==
LOC: SUPCPDRO 08:31 → EC 08:31 → 5NMEDONC 12:19 → 4SSUR 05-01 06:25 → OBSVTOIN 05-02 07:27
PROVIDERS: ADMIT Internal Medicine; ATTEND Internal Medicine
PROC: 0F9030Z Drainage of Liver with Drainage Device, Percutaneous Approach (ICD-10-PCS; principal; 2024-05-03)
DX: T85.628A Displacement of other specified internal prosthetic devices, implants and grafts, initial encounter (principal); K75.0 Abscess of liver; U07.1 COVID-19; I82.C11 Acute embolism and thrombosis of right internal jugular vein; K57.20 Diverticulitis of large intestine with perforation and abscess without bleeding; E87.20 Acidosis, unspecified; I82.621 Acute embolism and thrombosis of deep veins of right upper extremity; E87.1 Hypo-osmolality and hyponatremia; L89.611 Pressure ulcer of right heel, stage 1; I10 Essential (primary) hypertension; I48.91 Unspecified atrial fibrillation; E87.6 Hypokalemia; F41.9 Anxiety disorder, unspecified; Z87.891 Personal history of nicotine dependence; Z79.01 Long term (current) use of anticoagulants; Z79.899 Other long term (current) drug therapy; Z88.0 Allergy status to penicillin; Z85.528 Personal history of other malignant neoplasm of kidney; Z85.048 Personal history of other malignant neoplasm of rectum, rectosigmoid junction, and anus; Z90.710 Acquired absence of both cervix and uterus; Z93.3 Colostomy status; Y81.2 Prosthetic and other implants, materials and accessory general- and plastic-surgery devices associated with adverse incidents
CPT/HCPCS: 36415; 49406; 71045; 71275; 74177; 76942; 80048; 80053; 83690; 83735; 85025; 85379; 85610; 87070; 87075; 87205; 87636; 93970; 96374; 99285